=== PATIENT | male | born 1935 | race American Indian/Alaskan Native ===

== ENCOUNTER 2017-05-27 05:22 | Inpatient (IN) | payer MEDICARE ==
[2017-05-27] MEDS ORDERED: Sodium Chloride 0.9% 500 ML IV ONE ×2 (05:51→05:57)
[2017-05-27] MEDS ORDERED: Alum-Mag Hydrox-Simethicone Susp (30 mL) PO STA (05:52)
[2017-05-27] MEDS ORDERED: Alum-Mag Hydrox-Simethicone Susp (30 mL) ONE (05:58)
[2017-05-27 06:03] LABS: BASO # 0.1 K/uL (0.0-0.2); BASO % 1.4 % (0.0-2.0); EOS # 0.4 K/uL (0.0-0.7); EOS % 6.8 % (0.0-4.0); HEMATOCRIT 39.8 % (35.0-51.0); LYMPH # 1.7 K/uL (1.0-4.3); LYMPH % 27.9 % (20.0-40.0); MEAN CELL VOLUME 83.5 fL (80.0-94.0); MEAN CORPUSCULAR HEMOGLOBIN 27.5 pg (27.0-31.0); MEAN CORPUSCULAR HGB CONC 32.9 g/dL (33.0-37.0); MONO # 0.4 K/uL (0.0-0.8); NRBC % 0.1 % (0.0-2.0); RED CELL DISTRIBUTION WIDTH 15.2 % (11.5-14.5)
[2017-05-27 06:12] LABS: INR 1.1
[2017-05-27 06:18] LABS: BILIRUBIN,TOTAL 0.9 mg/dL (0.2-1.3); CALCIUM 9.5 mg/dl (8.6-10.4); POTASSIUM 6.1 mmol/L (3.6-5.2); TOTAL PROTEIN 7.7 g/dL (6.3-8.3)
[2017-05-27 06:30] LABS: TROPONIN I 0.113 ng/mL (0.00-0.120)
--- NOTE | 2017-05-27 06:42 | C.PDOC ---
History Of Present Illness <CecilyKaitlin - Last Filed: 05/27/17 07:32> <LamontrissashivaniJuliannTessa - Last Filed: 05/27/17 20:27> 81 yp male c/o "weakness" for 2 days. Pt notes that he cant walk or move his body, noting he doesnt feel strong enough. Sometimes feels dizzy. (+) bodyaches. Notes he has no specific pain anymore but does request medication for the "gas" in stomach. Denies abdominal pain, chest pain, sob. Notes normal BM. (+) weight loss . h/o quadruple by pass last year. No focal deficts. ( Tessa Ramirez) <CecilyKaitlin - Last Filed: 05/27/17 07:32> History Per: Patient History/Exam Limitations: no limitations Onset/Duration Of Symptoms: Days Current Symptoms Are (Timing): Still Present <Tessa Ramirez - Last Filed: 05/27/17 20:27> Time Seen by Provider: 05/27/17 05:41 Chief Complaint (Nursing): Weakness/Neurological Deficit Past Medical History - Medical History PMH: Arthritis, HTN Family History: States: Unknown Family Hx - Social History Hx Alcohol Use: No Hx Substance Use: No - Immunization History Hx Tetanus Toxoid Vaccination: No Hx Influenza Vaccination: No Hx Pneumococcal Vaccination: No <Juliann Ramirezov - Last Filed: 05/27/17 20:27> Vital Signs: Last Vital Signs Temp 98 F 05/27/17 19:08 Pulse 94 H 05/27/17 19:08 Resp 18 05/27/17 19:08 BP 169/91 H 05/27/17 19:08 Pulse Ox 100 05/27/17 19:08 Review Of Systems Except As Marked, All Systems Reviewed And Found Negative. <Tessa Ramirez - Last Filed: 05/27/17 20:27> Physical Exam - Physical Exam Appears: Well, Non-toxic, No Acute Distress, Chronically Ill Skin: Normal Color, Warm, Dry Head: Atraumatic, Normacephalic Eye(s): bilateral: Normal Inspection, EOMI Nose: Normal Oral Mucosa: Moist Neck: Normal, Normal ROM, Supple Chest: Symmetrical Cardiovascular: Rhythm Regular Respiratory: Normal Breath Sounds Gastrointestinal/Abdominal: Normal Exam, Soft, No Tenderness Back: Normal Inspection Extremity: Normal ROM, Other ((+) tophi on hands) Extremity: Bilateral: Atraumatic Neurological/Psych: Oriented x3, Normal Speech, Normal Cognition, Normal Cranial Nerves (2-12 grosly intact, no focal deficts) <Tessa Ramirez - Last Filed: 05/27/17 20:27> ED Course And Treatment - Laboratory Results Result Diagrams: 05/27/17 06:00 05/27/17 06:00 <Kaitlin Tony - Last Filed: 05/27/17 07:32> - Laboratory Results Result Diagrams: 05/27/17 06:00 05/27/17 18:56 ECG: Interpreted By Me (Dr hess), Viewed By Me ECG Rhythm: Sinus Rhythm Rate From EC O2 Sat by Pulse Oximetry: 97 Progress Note: Case discussed with Dr Peterson, who instructs insulin, calcium gluconate, and D50. Pt notes the PMD is Dr Daryl Thrasher. Case endorsed to Chris Tony pending re-evaluation, admission and completion of lab results. <Tessa Ramirez - Last Filed: 05/27/17 20:27> Disposition - Disposition Disposition Time: 07:33 <Kaitlin Tony - Last Filed: 05/27/17 07:32> <Tessa Ramirez - Last Filed: 05/27/17 20:27> - Disposition Disposition: HOSPITALIZED Condition: SERIOUS - Clinical Impression Clinical Impression: Generalized weakness, Acute renal failure, Hyperkalemia Decision To Admit - Pt Status Changed To: Hospital Disposition Of: Inpatient - Admit Certification Admit to Inpatient:: After my assessment, the patient will require hospitalization for at least two midnights. This is because of the severity of symptoms shown, intensity of services needed, and/or the medical risk in this patient being treated as an outpatient. - InPatient: Physician Admission Certification: I certify that this patient requires 2 or more midnights of care for the following reason:: ARF, hyperkalemia. Pt will need more than 2 days of admission. - . Bed Request Type: Telemetry <aKitlin Tony - Last Filed: 05/27/17 07:32> <Tessa Ramirez - Last Filed: 05/27/17 20:27> - . Patient Diagnosis: Generalized weakness, Acute renal failure, Hyperkalemia
[2017-05-27] MEDS ORDERED: Sod Polystyrene Sulf 15 gm/60 ml Oral Susp PO ONE (06:58)
[2017-05-27] MEDS ORDERED: Calcium Gluconate 4.65 MEQ in Dextrose 5% In Water 100 ML IV STA (07:04)
[2017-05-27] MEDS ORDERED: Sod Polystyrene Sulf 15 gm/60 ml Oral Susp ONE (07:04)
[2017-05-27] MEDS ORDERED: Dextrose 50% SYRINGE Inj (50 ml) IV STA (07:07)
[2017-05-27] MEDS ORDERED: (Novolin R) Insulin Human Regular 100 units/ml vial IV ONE (07:08)
[2017-05-27] MEDS ORDERED: (Novolin R) Insulin Human Regular 100 units/ml vial ONE (07:31)
[2017-05-27] MEDS ORDERED: Dextrose 50% SYRINGE Inj (50 ml) ONE (07:31)
[2017-05-27 07:47] LABS: THYROID STIMULATING HORMONE 9.5 mIU/L (0.46-4.68)
--- NOTE | 2017-05-27 07:52 | RAD ---
PROCEDURE: CHEST RADIOGRAPH, 1 VIEW HISTORY: SOB COMPARISON: None available. FINDINGS: LUNGS: Clear. PLEURA: No pneumothorax or pleural fluid seen. CARDIOVASCULAR: Normal. OSSEOUS STRUCTURES: No significant abnormalities. VISUALIZED UPPER ABDOMEN: Surgical clips is seen in the medial left upper quadrant abdomen. OTHER FINDINGS: Sternotomy wires again noted. IMPRESSION: No interval cardiopulmonary disease.
[2017-05-27] MEDS: Sodium Bicarbonate 8.4% 150 MEQ in Dextrose 5% In Water 1,000 ML IV SCH (08:03)
[2017-05-27 10:43] LABS: RBC URINE 32 /hpf (0-3); URINE BILIRUBIN NEGATIVE (NEGATIVE); URINE BLOOD 3+ (NEGATIVE); URINE COLOR Yellow (YELLOW); URINE GLUCOSE (UA) NORMAL (Normal); URINE KETONE NEGATIVE (NEGATIVE); URINE LEUKOCYTE ESTERASE NEG Leu/uL (Negative); URINE PROTEIN 2+ mg/dL (NEGATIVE); URINE UROBILINOGEN NORMAL mg/dL (0.2-1.0); WBC URINE 4 /hpf (0-5)
[2017-05-27 19:08] LABS: POTASSIUM 5.3 mmol/L (3.6-5.2)
[2017-05-27 19:11] LABS: ALB/GLOB RATIO 1.1 (1.0-2.1); BILIRUBIN,TOTAL 0.9 mg/dL (0.2-1.3); TOTAL PROTEIN 7.9 g/dL (6.3-8.3)
[2017-05-27 19:12] LABS: CALCIUM 9.3 mg/dl (8.6-10.4)
--- NOTE | 2017-05-27 19:53 | CP.PCM.CON ---
History of Present Illness - History of Present Illness History of Present Illness: pt is seen and examined, full consult is dictated #[id number] Past Patient History - Past Social History Smoking Status: Former Smoker - CARDIAC Hx Hypertension: Yes - MUSCULOSKELETAL/RHEUMATOLOGICAL Hx Arthritis: Yes - PSYCHIATRIC Hx Substance Use: No - SURGICAL HISTORY Hx Surgeries: Yes Other/Comment: "Quadruple bypass" - ANESTHESIA Hx Anesthesia: Yes Hx Anesthesia Reactions: No Hx Malignant Hyperthermia: No Meds Allergies/Adverse Reactions: Allergies Allergy/AdvReac Type Severity Reaction Status Date / Time No Known Allergies Allergy Verified 05/27/17 05:37 - Medications Medications: Current Medications Allopurinol (Zyloprim) 100 mg PO DAILY [facility] Amlodipine Besylate (Norvasc) 10 mg PO DAILY [facility] Last Admin: 05/27/17 14:34 Dose: 10 mg Aspirin (Ecotrin) 81 mg PO DAILY [facility] Last Admin: 05/27/17 14:34 Dose: 81 mg Calcitriol (Rocaltrol) 0.25 mcg PO MWF [facility] Clopidogrel Bisulfate (Plavix) 75 mg PO DAILY [facility] Colchicine (Colocrys) 0.6 mg PO BID [facility] Last Admin: 05/27/17 18:47 Dose: 0.6 mg Heparin Sodium (Porcine) (Heparin) 5,000 units SC BID [facility] Last Admin: 05/27/17 18:47 Dose: 5,000 units Sodium Bicarbonate 150 meq/ (Dextrose) 1,150 mls @ 70 mls/hr IV .[id number] [facility] Last Admin: 05/27/17 08:03 Dose: 70 mls/hr Rosuvastatin Calcium (Crestor) 5 mg PO [facility] Results - Vital Signs Recent Vital Signs: Last Vital Signs Temp 98 F 05/27/17 19:08 Pulse 94 H 05/27/17 19:08 Resp 18 05/27/17 19:08 BP 169/91 H 05/27/17 19:08 Pulse Ox 100 05/27/17 19:08 - Labs Result Diagrams: 05/27/17 06:00 05/27/17 18:56 Labs: Laboratory Results - last 24 hr 05/27/17 05/27/17 10:27 18:56 Sodium 146 Potassium 5.3 H Chloride 107 Carbon Dioxide 18 L Anion Gap 26 H BUN 75 H Creatinine 4.5 H Est GFR ( Amer) 15 Est GFR (Non-Af Amer) 13 Random Glucose 88 Calcium 9.3 Total Bilirubin 0.9 AST 247 H ALT 169 H Alkaline Phosphatase 142 H Total Protein 7.9 Albumin 4.2 Globulin 3.7 Albumin/Globulin Ratio 1.1 Urine Color Yellow Urine Clarity Clear Urine pH 5.0 Ur Specific [place] 1.012 Urine Protein 2+ H Urine Glucose (UA) Normal Urine Ketones Negative Urine Blood 3+ H Urine Nitrate Negative Urine Bilirubin Negative Urine Urobilinogen Normal Ur Leukocyte Esterase Neg Urine WBC (Auto) 4 Urine RBC (Auto) 32 H Ur Squamous Epith Cells < 1
[2017-05-28] MEDS ORDERED: Dextrose 5%/0.45% NS 1,000 ML IV SCH (01:45)
[2017-05-28] MEDS: Sodium Bicarbonate 8.4% 150 MEQ in Dextrose 5% In Water 1,000 ML IV SCH (02:08)
--- NOTE | 2017-05-28 02:19 | CON ---
FOLLOWUP RENAL CONSULTATION LOCATION: The patient is located in a emergency room bed 12. REQUESTING PHYSICIAN: Jeffery Thrasher MD REASON FOR CONSULTATION: Hyperkalemia, generalized weakness, renal failure, metabolic acidosis. HISTORY OF PRESENT ILLNESS: The patient is a 81-year-old elderly very pleasant male with a past medical history significant for hypertension, hyperkalemia, metabolic acidosis, chronic kidney disease, the baseline creatinine about 2.5 to 3 and coronary artery disease status post CABG about 1-1/2 year ago, was presented to the emergency room with chief complaint of severe weakness and also feeling dizzy and status post fall x1 when he try to get into the car about 2 days ago. Denies any loss of consciousness. The patient also complaints of difficult to ambulate and also pain in both upper and lower extremities. The patient also claims decrease p.o. intake. Denies any headache. Denies any chest pain or palpitations. No diarrhea. Denies any swelling of the legs. Denies any dysuria or frequency. PAST MEDICAL HISTORY: Significant for hypertension, severe tophaceous gout, chronic kidney disease, hyperkalemia, and metabolic acidosis. PAST SURGICAL HISTORY: Status post CABG about 1-1/2 year ago. ALLERGIES: NO KNOWN DRUG ALLERGIES. SOCIAL HISTORY: The patient is an active smoker, smokes 4 cigarettes, 2 in the morning and 2 in the evening. The patient is an ex-alcohol abuser, quit about 30 years ago. No drug abuse. PERSONAL HISTORY: He is 3 times and he lives with his . He has 2 children. FAMILY HISTORY: Both parents are . CURRENT MEDICATIONS: Include as follows; colchicine 0.6 mg p.o. b.i.d., Crestor 5 mg at bedtime, Ecotrin 81 mg daily, subcu heparin 5000 b.i.d., Norvasc 10 mg p.o. daily, Plavix 75 mg daily, Rocaltrol 0.25 mcg 3 times a week, sodium bicarbonate drip, D5W with 3 amps of bicarb at 70 mL per hour, allopurinol 100 mg p.o. daily, status post calcium glubionate 1 amp, D50 insulin, Kayexalate 30 g p.o. x1, total 2 doses and IV fluids 500 mL bolus x2. REVIEW OF SYSTEMS: Significant for generalized weakness, status post fall x1 without any injuries, pain in both upper and lower extremities, feeling thirsty, and decreased p.o. intake. PHYSICAL EXAMINATION VITAL SIGNS: Blood pressure 169/91, pulse 94, respirations 18, temperature 98 and saturation 100%. Height is 6 feet 3 inches and weight is 175 pounds. GENERAL: The patient is a 81-year-old elderly male, moderately built, moderately nourished, not in acute distress. HEENT: Pupils normal, reactive to light and accommodation. Conjunctivae pink. Sclerae anicteric. Tongue is moist. Trachea is midline. LUNGS: Symmetric on both sides. Bilateral breath sounds present. Clear to auscultation. Tongue is very dry. CARDIOVASCULAR SYSTEM: [place] at the fifth intercostal space, midclavicular line. S1 and S2 audible. No murmur or gallop. The patient has a mid sternal scar present from the previous CABG. ABDOMEN: Normal in appearance. Soft, tympanic. No guarding. No rigidity. No hepatosplenomegaly. CENTRAL NERVOUS SYSTEM: The patient is alert, awake, oriented x3. Sensory and motor system is grossly within normal limits. EXTREMITIES: No cyanosis. No clubbing. No edema. Dorsalis pedis pulses are feeble. 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 LABORATORY DATA: Include as follows as of 05/27/2017 at 6:00 a.m.: WBC 6, hemoglobin 13.1, hematocrit is 39.8 and platelets 147. PT 12.6, PTT 29. Sodium 141, potassium 6.1, chloride 108, CO2 of 14, BUN 73, creatinine 4.4, calcium 9.5, total bilirubin 0.9, AST 260, ALT 150, alkaline phosphatase is 143. CPK 9587 and CK-MB is 28.5. Troponin 0.11, total protein 7.7, albumin is 3.9, and globulin is 3.8. Lipase is 486 and TSH is 9.5. Urinalysis; yellow, clear, pH 5, specific gravity 1.012, protein 2+, glucose normal, ketones negative, blood 3+, nitrites negative, bilirubin negative, urobilinogen is normal, leukocyte esterase negative, wbc 4, rbc is 32, squamous epithelial less than 1. Repeat CMP at 1856 hours; sodium 146, potassium 5.3, chloride 107, CO2 of 18, BUN 75, creatinine 4.5, glucose 88, calcium 9.3, total bilirubin 0.9, AST 247, ALT 169, alkaline phosphatase 142, total protein 7.9, albumin 4.2. ASSESSMENT: In summary, the patient is a 81-year-old elderly male with a history of hypertension, coronary artery disease, status post coronary artery bypass graft, gout, chronic kidney disease with a baseline creatinine about 2.5 to 3, tophaceous gout, was admitted with generalized weakness, pain in both upper and lower extremities and status post fall x1 about 2 days ago with increased BUN and creatinine, increased potassium and low bicarbonate. 1. Renal failure, acute on chronic kidney disease. 2. Rhabdomyolysis secondary to recent fall. 3. Hyperkalemia secondary to renal failure. 4. Metabolic acidosis secondary to renal failure. 5. Hypertension. 6. Dehydration. PLAN: Continue IV fluids and D5W with sodium bicarbonate 3 amp at 70 mL per hour. Continue to monitor BMP and serum potassium is improving and bicarb is improving. Encourage p.o. fluid intake in the next 24 to 48 hours and repeat CBC, BMP and CPK level in the a.m. We will also check PTH intact level. We will follow with you. Thank you for allowing me to participate in your patient's care. Case discussed with physician assistant vice president from the ER this morning. Hernan Peterson MD
[2017-05-28 07:16] LABS: CALCIUM 8.9 mg/dl (8.6-10.4); POTASSIUM 4.9 mmol/L (3.6-5.2)
[2017-05-28] MEDS: (Novolin R) Insulin Human Regular 100 units/ml vial SC SCH ×4 (07:30→22:36)
[2017-05-28] MEDS: Sodium Chloride 0.45% 1,000 ML IV SCH ×2 (09:00→16:39)
--- NOTE | 2017-05-28 12:10 | CP.PCM.PN ---
Subjective - Date & Time of Evaluation Date of Evaluation: 05/28/17 Time of Evaluation: 12:10 - Subjective Subjective: pt i adenike nd examined, follow up consult is dictated #[id number] d/c iv [id number] start [id number] 650 mg po q 6 hrs ivf 1/2 ns at 125 ml/hr x 48 hrs bmp daily Objective - Vital Signs/Intake and Output Vital Signs (last 24 hours): Temp Pulse Resp BP Pulse Ox 97.4 F L 87 19 165/87 H 97 05/28/17 08:40 05/28/17 08:40 05/28/17 08:40 05/28/17 08:40 05/28/17 08:40 - Medications Medications: Current Medications Amlodipine Besylate (Norvasc) 10 mg PO DAILY [facility] Last Admin: 05/28/17 09:57 Dose: 10 mg Aspirin (Ecotrin) 81 mg PO DAILY [facility] Last Admin: 05/28/17 09:57 Dose: 81 mg Calcitriol (Rocaltrol) 0.25 mcg PO MWF [facility] Clopidogrel Bisulfate (Plavix) 75 mg PO DAILY [facility] Last Admin: 05/28/17 09:57 Dose: 75 mg Colchicine (Colocrys) 0.6 mg PO QOD [facility] Heparin Sodium (Porcine) (Heparin) 5,000 units SC BID [facility] Last Admin: 05/28/17 09:57 Dose: 5,000 units Hydralazine HCl (Apresoline) 100 mg PO TID [facility] Dextrose/Sodium Chloride (Dextrose 5%/0.45% Ns 1000 Ml) 1,000 mls @ 50 mls/hr IV .Q20H [facility] Sodium Chloride (Sodium Chloride 0.45%) 1,000 mls @ 125 mls/hr IV .Q8H [facility] Stop: 05/30/17 08:46 Last Admin: 05/28/17 09:00 Dose: 125 mls/hr Influenza Virus Vaccine (Afluria) 45 mcg IM .ONCE ONE Stop: 05/30/17 14:01 Insulin Human Regular (Novolin R) 0 unit SC ACHS [facility] PRN Reason: Protocol Last Admin: 05/28/17 07:30 Dose: Not Given Pneumococcal Polyvalent Vaccine (Pneumovax 23 Vaccine) 0.5 ml IM .ONCE ONE Stop: 05/30/17 14:01 Rosuvastatin Calcium (Crestor) 5 mg PO [facility] Last Admin: 05/27/17 23:57 Dose: 5 mg Sodium Bicarbonate (Sodium Bicarbonate Tab) 650 mg PO Q6 DAWIT - Labs Labs: 05/28/17 06:23 PT 12.6 SECONDS (9.7-12.2) H 05/27/17 06:00 INR 1.1 05/27/17 06:00 APTT 29 SECONDS (21-34) 05/27/17 06:00
--- NOTE | 2017-05-28 14:02 | HP ---
HISTORY OF PRESENT ILLNESS: This is a 81-year-old gentleman with a history of hypertension, chronic kidney disease, gout, coronary artery disease, previous CABG, who was brought with generalized weakness. His potassium was found to be elevated towards 6. His creatinine was 4.4. The patient was subsequently admitted. Dr. Peterson of the nephrology was consulted. MEDICATIONS AT HOME: Include aspirin 81 mg, hydralazine 100 mg three times a day, clonidine 0.1 three times a day, Coreg 12.5 twice a day, Plavix 75 mg one a day, and Renvela 800 mg two tablets twice a day. PAST MEDICAL HISTORY: History of CABG more than 10 years for multivessel coronary artery disease. He was admitted in October 2016 to [facility] with a renal failure. His potassium was 7.1 and his creatinine was around 3. The patient is also on Zocor, which was switched to Crestor 5 mg. FAMILY HISTORY: Negative for diabetes or hypertension. PERSONAL HISTORY: Smokes more than half pack per day for more than 40 years. No ETOH abuse. He is and lives with his . No exercise. REVIEW OF SYSTEMS: GENERAL: No fever and no chills. Generalized weakness is noted; extreme weakness, could not get out from bed to chair. HEENT: No headaches noted. No visual disturbances. Ears; he has a hearing loss. NECK: No swollen glands. No enraged thyroid. RESPIRATORY: Negative for cough or hemoptysis. CARDIAC: Denies any chest pain. He does have occasional shortness of breath, but no edema. History of hypertension. No palpitation. No PND. GASTROINTESTINAL; Poor appetite. Constipation. GENITOURINARY: Positive for frequency and hesitancy. MUSCULOSKELETAL: History of multiple joint pains, gout, back pains, under the care of Dr. Aggarwal, the drip box tender. PERIPHERAL VASCULAR SYSTEM: Severe peripheral arterial disease, 1 to 2 blocks of claudication, but recently he has not been walking. NEUROLOGIC: Negative for trembling, numbness or seizures. PSYCHIATRIC: No evidence of depression. ALLERGIES; Denies. PHYSICAL EXAMINATION GENERAL: Shows an elderly gentleman, appears chronically sick, but in no acute distress. He is 6 feet 1 inch, and his weight is 175. His weight was 200 about six months ago. HEENT: Head is normocephalic. Eyes no pallor and no icterus. NECK: Supple. No thyroid enlargement. LUNGS: Clear to auscultation bilaterally. HEART: PMI is normal. S1 and S2 is normal. Soft S4 gallop. Grade I to II/ systolic murmur in mitral area. Distal pulses are feeble. No edema. ABDOMEN: Soft and nontender. EXTREMITIES: Gouty tophi noted in the right elbow and arthritis changes in both the hands. NEUROLOGIC: The patient is awake, alert, and oriented x3. VITAL SIGNS: His blood pressure is 165/87, his heart rate is 86 and regular, respiratory rate of 20, temperature is 97.4, and O2 saturation is 97% on room air. LABORATORY DATA: Shows his creatinine is 4.4 and TSH is mildly elevated to 9.7. ALT is 247, AST is 169, and alkaline phosphatase is 142. His creatinine is 4.4, potassium was 6.4, which was rare, today's one is 4.9. DIAGNOSTIC DATA: EKG; sinus rhythm, diffuse ST-T changes, and LVH. ASSESSMENT: This is a 81-year-old gentleman with history of hypertension, diffuse atherosclerosis, has presented due to worsening of the renal failure. Hyperkalemia, which is being corrected. PLAN: At this point is to medicate him, culture him, nephrology followup, and may need a shunt. We will add a small dose of Synthroid. Jeffery Thrasher MD
--- NOTE | 2017-05-29 00:35 | CARD ---
APPROVED REPORT EKG Measurement Heart [id number] <Conclusion> Normal sinus rhythm Possible Left atrial enlargement ST & T wave abnormality, consider lateral ischemia Prolonged QT Abnormal ECG
--- NOTE | 2017-05-29 01:04 | PN ---
FOLLOWUP RENAL CONSULTATION LOCATION: The patient is located in room #557, bed A. REQUESTED BY: Dr. Jeffery Thrasher. REASON FOR FOLLOWUP: Acute renal failure, chronic kidney disease, metabolic acidosis and hyperkalemia. Mr. Cuninngham is about 81 years old, elderly, -[place] male with a past medical history significant for hypertension; tophaceous gout; chronic kidney disease; hyperkalemia; metabolic acidosis and coronary artery disease, status post CABG; was admitted with a chief complaint of severe weakness in both lower extremities and feeling weak, tired and status post fall x1 two days prior to the admission. Denies any chest pain, palpitations. Denies any fever or cough. The patient is feeling slightly better today. PHYSICAL EXAMINATION: VITAL SIGNS: This morning as follows; blood pressure 165/87, pulse 87, respirations 19, temperature 97.4, saturation 97%. Height 6 feet 3 inches and weight is 175 pounds. GENERAL: Mr. Cunningham is 81 years old elderly, -[place] male, moderately built, moderately nourished, and not in acute distress. HEENT: Pupils are normal and reactive to light and accommodation. Conjunctivae pink. Sclerae anicteric. Tongue is moist. Trachea is midline. LUNGS: Symmetric on both sides and bilateral breath sounds present. Clear to auscultation. CARDIOVASCULAR SYSTEM: [place] at the fifth intercostal space, midclavicular line, S1 and S2 audible. No murmur or no gallop. The patient has a midsternal scar present. ABDOMEN: Normal in appearance, soft, tympanic. No guarding, no rigidity. No hepatosplenomegaly. CENTRAL NERVOUS SYSTEM: The patient is alert, awake, and oriented x3. Nonfocal neuro examination. Cranial nerves II through XII grossly intact. Sensory and motor system is within normal limits. EXTREMITIES: No cyanosis. No clubbing. No edema. The patient has tophaceous gout, multiple tophi in both upper extremities. CURRENT MEDICATIONS: Include as follows; influenza vaccine 45 mcg IM x1 dose, hydralazine 100 mcg p.o. t.i.d., colchicine 0.6 mg p.o. q.o.d., Crestor 5 mg p.o. at bedtime, Ecotrin 81 mg p.o. daily, subQ heparin 5000 b.i.d., Norvasc 10 mg daily, Novolin R for sliding scale, Plavix 75 mg p.o. daily and pneumococcal vaccine 0.5 mL IM x1 and Rocaltrol 0.25 mcg p.o. -- and sodium bicarbonate 650 mg p.o. q. 6 hours and Synthroid 25 mcg p.o. daily and IV fluids half-normal saline at 125 mL/h and the sodium bicarbonate IV is discontinued this morning. LABORATORY DATA: Include as follows as of 05/28/2017: Sodium 138, potassium 4.9, chloride 103, CO2 of 18, BUN 77, creatinine 4.4, and GFR is about 16, glucose 87, calcium 8.9, CPK 4129. Hepatitis B surface antigen negative, core antibody is negative. Hep C antibody is negative. Hepatitis C IgM antibody is negative. ASSESSMENT: In summary, Mr. Cunningham is a 81 years old elderly -[place] male with a history of hypertension; coronary artery disease, status post CABG; tophaceous gout; chronic kidney disease; hyperkalemia; metabolic acidosis. 1. Renal failure, [id number] kidney disease versus progression of the chronic kidney disease. 2. Hyperkalemia secondary to renal failure and metabolic acidosis. 3. Metabolic acidosis secondary to renal failure. 4. Rhabdomyolysis. 5. Dehydration. PLAN: Continue IV fluids half-normal saline at 125 mL/h and repeat BMP and CPK level in a.m. and IV bicarbonate is discontinued this morning and started on p.o. sodium bicarbonate 650 mg p.o. q. 6 hours. We will check PTH intact level. We will follow with you. Thank you for allowing me to participate in your patient's care. Hernan Peterson MD
[2017-05-29] MEDS: Sodium Chloride 0.45% 1,000 ML IV SCH ×5 (01:15→21:00)
[2017-05-29] MEDS: Levothyroxine 25 MCG TAB PO SCH (06:38)
[2017-05-29] MEDS: (Novolin R) Insulin Human Regular 100 units/ml vial SC SCH ×4 (06:47→22:06)
--- NOTE | 2017-05-29 09:42 | US ---
HISTORY: abnormal lft,renal failure COMPARISON: None. TECHNIQUE: Sonographic evaluation of the abdomen. FINDINGS: LIVER: Measures 18.8 cm. Diffusely increased echogenicity of the liver parenchyma. Enlarged. Consistent with fatty infiltration. No mass. No biliary ductal dilatation. Smooth contour. GALLBLADDER: Markedly thickened wall, nonspecific. No pericholecystic fluid. No cholelithiasis. COMMON BILE DUCT: Measures 6 mm. No stones. No dilatation. PANCREAS: Limited visualization. No abnormality. RIGHT KIDNEY: Measures 9.4cm. Normal echogenicity. No calculus, mass, or hydronephrosis. LEFT KIDNEY: Measures 8.8cm. Normal echogenicity. No calculus, mass, or hydronephrosis. SPLEEN: Normal in size and contour. No mass. AORTA: No aneurysmal dilatation. IVC: Unremarkable. OTHER FINDINGS: None. IMPRESSION: Fatty infiltration of the liver. Mild hepatomegaly. Gallbladder wall edema, nonspecific. No cholelithiasis. Otherwise unremarkable.
--- NOTE | 2017-05-29 10:52 | CP.PCM.PN ---
Subjective - Date & Time of Evaluation Date of Evaluation: 05/29/17 Time of Evaluation: 10:51 - Subjective Subjective: pt is seen and examined, follow up consult is dictated #[id number] Objective - Vital Signs/Intake and Output Vital Signs (last 24 hours): Temp Pulse Resp BP Pulse Ox 97.6 F 102 H 20 145/69 97 05/29/17 07:25 05/29/17 07:25 05/29/17 07:25 05/29/17 07:25 05/29/17 07:25 Intake and Output: 05/29/17 05/29/17 06:59 18:59 Output Total 400 Balance -400 - Medications Medications: Current Medications Amlodipine Besylate (Norvasc) 10 mg PO DAILY [facility] Last Admin: 05/29/17 10:36 Dose: 10 mg Aspirin (Ecotrin) 81 mg PO DAILY [facility] Last Admin: 05/29/17 10:35 Dose: 81 mg Calcitriol (Rocaltrol) 0.25 mcg PO MWF [facility] Last Admin: 05/29/17 10:34 Dose: 0.25 mcg Clopidogrel Bisulfate (Plavix) 75 mg PO DAILY [facility] Last Admin: 05/29/17 10:35 Dose: 75 mg Colchicine (Colocrys) 0.6 mg PO QOD [facility] Last Admin: 05/29/17 10:34 Dose: 0.6 mg Heparin Sodium (Porcine) (Heparin) 5,000 units SC BID [facility] Last Admin: 05/29/17 10:35 Dose: 5,000 units Hydralazine HCl (Apresoline) 100 mg PO TID [facility] Last Admin: 05/29/17 10:36 Dose: 100 mg Sodium Chloride (Sodium Chloride 0.45%) 1,000 mls @ 125 mls/hr IV .Q8H [facility] Stop: 05/30/17 08:46 Last Admin: 05/29/17 09:02 Dose: Not Given Influenza Virus Vaccine (Afluria) 45 mcg IM .ONCE ONE Stop: 05/30/17 14:01 Insulin Human Regular (Novolin R) 0 unit SC [facility] PRN Reason: Protocol Last Admin: 05/29/17 06:47 Dose: Not Given Levothyroxine Sodium (Synthroid) 25 mcg PO DAILY@0630 [facility] Last Admin: 05/29/17 06:38 Dose: 25 mcg Pneumococcal Polyvalent Vaccine (Pneumovax 23 Vaccine) 0.5 ml IM .ONCE ONE Stop: 05/30/17 14:01 Rosuvastatin Calcium (Crestor) 5 mg PO HS [facility] Last Admin: 05/28/17 22:36 Dose: 5 mg Sodium Bicarbonate (Sodium Bicarbonate Tab) 650 mg PO Q6 [facility] Last Admin: 05/29/17 06:39 Dose: 650 mg - Labs Labs: 05/28/17 06:23 PT 12.6 SECONDS (9.7-12.2) H 05/27/17 06:00 INR 1.1 05/27/17 06:00 APTT 29 SECONDS (21-34) 05/27/17 06:00
[2017-05-29 11:36] LABS: HEMATOCRIT 34.2 % (35.0-51.0); MEAN CELL VOLUME 81.9 fL (80.0-94.0); MEAN CORPUSCULAR HEMOGLOBIN 27.6 pg (27.0-31.0); MEAN CORPUSCULAR HGB CONC 33.7 g/dL (33.0-37.0); MEAN PLATELET VOLUME 8.7 fL (7.2-11.7); RED CELL DISTRIBUTION WIDTH 14.3 % (11.5-14.5); WHITE BLOOD COUNT 4.6 K/uL (4.8-10.8)
[2017-05-29 11:49] LABS: CALCIUM 8.4 mg/dl (8.6-10.4); POTASSIUM 4.7 mmol/L (3.6-5.2)
--- NOTE | 2017-05-29 12:43 | CP.PCM.PN ---
Subjective - Date & Time of Evaluation Date of Evaluation: 05/29/17 Time of Evaluation: 12:42 - Subjective Subjective: weak.labs noted,no better.may need dyalisis Objective - Vital Signs/Intake and Output Vital Signs (last 24 hours): Temp Pulse Resp BP Pulse Ox 97.6 F 102 H 20 145/69 97 05/29/17 07:25 05/29/17 07:25 05/29/17 07:25 05/29/17 07:25 05/29/17 07:25 Intake and Output: 05/29/17 05/29/17 06:59 18:59 Output Total 400 Balance -400 - Medications Medications: Current Medications Amlodipine Besylate (Norvasc) 10 mg PO DAILY [facility] Last Admin: 05/29/17 10:36 Dose: 10 mg Aspirin (Ecotrin) 81 mg PO DAILY [facility] Last Admin: 05/29/17 10:35 Dose: 81 mg Calcitriol (Rocaltrol) 0.25 mcg PO MWF [facility] Last Admin: 05/29/17 10:34 Dose: 0.25 mcg Clopidogrel Bisulfate (Plavix) 75 mg PO DAILY [facility] Last Admin: 05/29/17 10:35 Dose: 75 mg Colchicine (Colocrys) 0.6 mg PO QOD [facility] Last Admin: 05/29/17 10:34 Dose: 0.6 mg Heparin Sodium (Porcine) (Heparin) 5,000 units SC BID [facility] Last Admin: 05/29/17 10:35 Dose: 5,000 units Hydralazine HCl (Apresoline) 100 mg PO TID [facility] Last Admin: 05/29/17 10:36 Dose: 100 mg Sodium Chloride (Sodium Chloride 0.45%) 1,000 mls @ 125 mls/hr IV .Q8H [facility] Stop: 05/30/17 08:46 Last Admin: 05/29/17 09:02 Dose: Not Given Influenza Virus Vaccine (Afluria) 45 mcg IM .ONCE ONE Stop: 05/30/17 14:01 Insulin Human Regular (Novolin R) 0 unit SC [facility] PRN Reason: Protocol Last Admin: 05/29/17 11:30 Dose: Not Given Levothyroxine Sodium (Synthroid) 25 mcg PO DAILY@0630 [facility] Last Admin: 05/29/17 06:38 Dose: 25 mcg Pneumococcal Polyvalent Vaccine (Pneumovax 23 Vaccine) 0.5 ml IM .ONCE ONE Stop: 05/30/17 14:01 Rosuvastatin Calcium (Crestor) 5 mg PO HS [facility] Last Admin: 05/28/17 22:36 Dose: 5 mg Sodium Bicarbonate (Sodium Bicarbonate Tab) 650 mg PO Q6 [facility] Last Admin: 05/29/17 06:39 Dose: 650 mg - Labs Labs: 05/29/17 11:31 05/29/17 11:31 PT 12.6 SECONDS (9.7-12.2) H 05/27/17 06:00 INR 1.1 05/27/17 06:00 APTT 29 SECONDS (21-34) 05/27/17 06:00 - Constitutional Appears: Chronically Ill - Head Exam Head Exam: NORMOCEPHALIC - Eye Exam Eye Exam: Normal appearance - Neck Exam Neck Exam: Normal Inspection - Respiratory Exam Respiratory Exam: Decreased Breath Sounds - Cardiovascular Exam Cardiovascular Exam: REGULAR RHYTHM - GI/Abdominal Exam GI & Abdominal Exam: Soft - Extremities Exam Extremities Exam: absent: Pedal Edema - Neurological Exam Neurological Exam: Alert, Oriented x3 Assessment and Plan - Assessment and Plan (Free Text) Assessment: htn,ckd,cad. labs still no better.may need hd.
[2017-05-30] MEDS: Sodium Chloride 0.45% 1,000 ML IV SCH ×2 (02:20→14:06)
--- NOTE | 2017-05-30 04:47 | CON ---
DATE: FOLLOWUP RENAL CONSULTATION LOCATION: The patient is located in room 557, bed 8. REQUESTED BY: Jeffery Thrasher MD REASON FOR FOLLOWUP: Acute renal failure, chronic kidney disease, hyperkalemia, metabolic acidosis. HISTORY OF PRESENT ILLNESS: Mr. Cunningham is 81 years old elderly male with a history of hypertension, coronary artery disease status post CABG, gout, chronic kidney disease, hyperkalemia, metabolic acidosis who was admitted with generalized weakness status post fall with elevated CPK levels and increased BUN and creatinine. The patient is feeling better, not in acute distress. Denies any headache or dizziness. Denies any chest pain or palpitations. Denies any fever or cough. No abdominal pain. No nausea, vomiting, or diarrhea. PHYSICAL EXAMINATION: VITAL SIGNS: This morning as follows; blood pressure 145/69, pulse 102, respirations 20, temperature 97.6, saturation 97%. Height 6 feet 3 inches and weight is 175 pounds, BMI 21.9. GENERAL: Mr. Cunningham is 81 years old elderly -[place] male, moderately build, moderately nourished, not in distress. HEENT: Pupils normal and reactive to light and accommodation. Conjunctiva pink. Sclerae anicteric. Tongue is moist. Trachea is midline. LUNGS: Symmetric on both sides. Bilateral breath sounds present. Clear on auscultation. CARDIOVASCULAR: [place] at the fifth intercostal space, midclavicular line. S1 and S2 audible. No murmur or gallop. ABDOMEN: Normal in appearance. Soft and tympanic. No guarding. No rigidity. No hepatosplenomegaly. CENTRAL NERVOUS SYSTEM: The patient is alert, awake, and oriented x3. Nonfocal. NEUROLOGIC: Cranial nerves II through XII grossly intact. Sensory and motor system is within normal limits. EXTREMITIES: No cyanosis. No clubbing. No edema. 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 CURRENT MEDICATIONS: Includes as follows: 1. Influenza vaccine. 2. Hydralazine 25 mg p.o. q. 8 hours. 3. Colchicine 0.6 mg p.o. q.o.d. 4. Crestor 5 mg p.o. bedtime. 5. Aspirin 81 mg daily. 6. Subcutaneous heparin 5000 b.i.d. 7. Norvasc 10 mg daily. 8. Plavix 75 mg daily. 9. Pneumovax. 10. Rocaltrol 0.25 mcg 3 times a week. 11. Sodium bicarbonate 650 p.o. q. 6 hours. 12. IV fluids at 125 mL per hour. 13. Levothyroxine 25 mcg daily. LABORATORY DATA: Include as follows: As of 05/29/2017; WBC 4.6, hemoglobin 11.5, hematocrit is 34.2, platelets 120. Sodium 134, potassium 4.7, chloride 100, CO2 of 20, BUN 81, creatinine 4.2, and GFR is 17 and calcium 8.4, glucose 85 and CPK 3805. Other reports; ultrasound of the abdomen as of 05/29/2017. IMPRESSION: Fatty infiltration of the liver, mild hepatomegaly, gallbladder wall edema, nonspecific cholelithiasis; otherwise unremarkable. Right kidney measures 9.4 cm, normal echogenicity, no calculus mass, no hydronephrosis. Left kidney measures 8.8 cm, normal echogenicity, no calculus, mass, or hydronephrosis. No aneurysmal dilatation. In summary; Mr. Cunningham is 81 years old elderly -[place] male with hypertension, coronary artery disease, status post coronary artery bypass graft, gout, chronic kidney disease, hyperkalemia, metabolic acidosis, status post fall and weakness with elevated CPK levels. 1. Renal failure, acute on chronic kidney disease versus progression of the chronic kidney disease, cannot rule out hypertensive nephrosclerosis versus chronic interstitial nephritis secondary to medications such as colchicine, non-steroids. 2. Rhabdomyolysis. 3. Metabolic acidosis. 4. Hypertension. 5. Tophaceous gout. PLAN: Continue IV fluids, half normal saline at 125 mL per hour and continue sodium bicarb. We will change IV fluids to normal saline at 100 mL per hour. We will follow with you. Thank you for allowing me to participate in your patient's care. Repeat CBC, BMP, and CPK level in a.m. and case discussed with Dr. Jeffery Thrasher in rounds this morning. Hernan Peterson MD
[2017-05-30] MEDS: Levothyroxine 25 MCG TAB PO SCH (05:40)
[2017-05-30] MEDS: (Novolin R) Insulin Human Regular 100 units/ml vial SC SCH ×4 (07:30→21:31)
[2017-05-30 08:19] LABS: BASO # 0.1 K/uL (0.0-0.2); BASO % 1.3 % (0.0-2.0); EOS # 0.2 K/uL (0.0-0.7); EOS % 4.2 % (0.0-4.0); LYMPH # 0.9 K/uL (1.0-4.3); LYMPH % 21.3 % (20.0-40.0); MEAN CELL VOLUME 82.9 fL (80.0-94.0); MEAN CORPUSCULAR HEMOGLOBIN 27.3 pg (27.0-31.0); MEAN CORPUSCULAR HGB CONC 32.9 g/dL (33.0-37.0); MEAN PLATELET VOLUME 9.4 fL (7.2-11.7); MONO # 0.3 K/uL (0.0-0.8); MONO % 7.7 % (0.0-10.0); NRBC % 0.1 % (0.0-2.0); RED CELL DISTRIBUTION WIDTH 14.4 % (11.5-14.5); WHITE BLOOD COUNT 4.4 K/uL (4.8-10.8)
[2017-05-30 08:35] LABS: CALCIUM 8.5 mg/dl (8.6-10.4); POTASSIUM 4.5 mmol/L (3.6-5.2)
--- NOTE | 2017-05-30 09:30 | CP.PCM.PN ---
Subjective - Date & Time of Evaluation Date of Evaluation: 05/30/17 Time of Evaluation: 09:29 - Subjective Subjective: pt is seen and examined, follow up consult is dictated #[id number] renal function is improving, base line s.cr is 2.5-3 few months ago Objective - Vital Signs/Intake and Output Vital Signs (last 24 hours): Temp Pulse Resp BP Pulse Ox 97.6 F 97 H 20 155/76 H 98 05/30/17 08:00 05/30/17 08:00 05/30/17 08:00 05/30/17 08:00 05/30/17 08:00 Intake and Output: 05/30/17 05/30/17 06:59 18:59 Intake Total 1240 Output Total 1250 Balance -10 - Medications Medications: Current Medications Amlodipine Besylate (Norvasc) 10 mg PO DAILY [facility] Last Admin: 05/29/17 10:36 Dose: 10 mg Aspirin (Ecotrin) 81 mg PO DAILY [facility] Last Admin: 05/29/17 10:35 Dose: 81 mg Calcitriol (Rocaltrol) 0.25 mcg PO MWF [facility] Last Admin: 05/29/17 10:34 Dose: 0.25 mcg Clopidogrel Bisulfate (Plavix) 75 mg PO DAILY [facility] Last Admin: 05/29/17 10:35 Dose: 75 mg Colchicine (Colocrys) 0.6 mg PO QOD [facility] Last Admin: 05/29/17 10:34 Dose: 0.6 mg Heparin Sodium (Porcine) (Heparin) 5,000 units SC BID [facility] Last Admin: 05/29/17 17:20 Dose: 5,000 units Hydralazine HCl (Apresoline) 25 mg PO Q8H [facility] Last Admin: 05/30/17 05:40 Dose: 25 mg Influenza Virus Vaccine (Afluria) 45 mcg IM .ONCE ONE Stop: 05/30/17 14:01 Insulin Human Regular (Novolin R) 0 unit SC [facility] PRN Reason: Protocol Last Admin: 05/29/17 22:06 Dose: Not Given Levothyroxine Sodium (Synthroid) 25 mcg PO DAILY@0630 [facility] Last Admin: 05/30/17 05:40 Dose: 25 mcg Pneumococcal Polyvalent Vaccine (Pneumovax 23 Vaccine) 0.5 ml IM .ONCE ONE Stop: 05/30/17 14:01 Rosuvastatin Calcium (Crestor) 5 mg PO HS [facility] Last Admin: 05/29/17 22:04 Dose: 5 mg Sodium Bicarbonate (Sodium Bicarbonate Tab) 650 mg PO Q6 [facility] Last Admin: 05/30/17 05:40 Dose: 650 mg - Labs Labs: 05/30/17 08:11 05/30/17 08:11 PT 12.6 SECONDS (9.7-12.2) H 05/27/17 06:00 INR 1.1 05/27/17 06:00 APTT 29 SECONDS (21-34) 05/27/17 06:00
[2017-05-30] MEDS: Sodium Chloride 0.9% 1,000 ML IV SCH ×2 (10:48→17:41)
--- NOTE | 2017-05-30 12:58 | CP.PCM.PN ---
Subjective - Date & Time of Evaluation Date of Evaluation: 05/30/17 Time of Evaluation: 12:56 - Subjective Subjective: still weak, Objective - Vital Signs/Intake and Output Vital Signs (last 24 hours): Temp Pulse Resp BP Pulse Ox 97.6 F 97 H 20 155/76 H 98 05/30/17 08:00 05/30/17 08:00 05/30/17 08:00 05/30/17 08:00 05/30/17 08:00 Intake and Output: 05/30/17 05/30/17 06:59 18:59 Intake Total 1240 Output Total 1250 Balance -10 - Medications Medications: Current Medications Amlodipine Besylate (Norvasc) 10 mg PO DAILY [facility] Last Admin: 05/30/17 10:32 Dose: 10 mg Aspirin (Ecotrin) 81 mg PO DAILY [facility] Last Admin: 05/30/17 10:32 Dose: 81 mg Calcitriol (Rocaltrol) 0.25 mcg PO MWF [facility] Last Admin: 05/29/17 10:34 Dose: 0.25 mcg Clopidogrel Bisulfate (Plavix) 75 mg PO DAILY [facility] Last Admin: 05/30/17 10:32 Dose: 75 mg Colchicine (Colocrys) 0.6 mg PO QOD [facility] Last Admin: 05/29/17 10:34 Dose: 0.6 mg Heparin Sodium (Porcine) (Heparin) 5,000 units SC BID [facility] Last Admin: 05/30/17 10:32 Dose: 5,000 units Hydralazine HCl (Apresoline) 25 mg PO Q8H [facility] Last Admin: 05/30/17 05:40 Dose: 25 mg Sodium Chloride (Sodium Chloride 0.9%) 1,000 mls @ 125 mls/hr IV .Q8H [facility] Stop: 06/01/17 09:31 Last Admin: 05/30/17 10:48 Dose: 125 mls/hr Influenza Virus Vaccine (Afluria) 45 mcg IM .ONCE ONE Stop: 05/30/17 14:01 Insulin Human Regular (Novolin R) 0 unit SC [facility] PRN Reason: Protocol Last Admin: 05/30/17 07:30 Dose: Not Given Levothyroxine Sodium (Synthroid) 25 mcg PO DAILY@0630 [facility] Last Admin: 05/30/17 05:40 Dose: 25 mcg Pneumococcal Polyvalent Vaccine (Pneumovax 23 Vaccine) 0.5 ml IM .ONCE ONE Stop: 05/30/17 14:01 Rosuvastatin Calcium (Crestor) 5 mg PO HS [facility] Last Admin: 05/29/17 22:04 Dose: 5 mg Sodium Bicarbonate (Sodium Bicarbonate Tab) 650 mg PO Q6 [facility] Last Admin: 05/30/17 05:40 Dose: 650 mg - Labs Labs: 05/30/17 08:11 05/30/17 08:11 PT 12.6 SECONDS (9.7-12.2) H 05/27/17 06:00 INR 1.1 05/27/17 06:00 APTT 29 SECONDS (21-34) 05/27/17 06:00 - Constitutional Appears: Chronically Ill - Head Exam Head Exam: NORMOCEPHALIC - Neck Exam Neck Exam: Normal Inspection - Respiratory Exam Respiratory Exam: Clear to Ausculation Bilateral - Cardiovascular Exam Cardiovascular Exam: REGULAR RHYTHM, Murmur - GI/Abdominal Exam GI & Abdominal Exam: Soft - Extremities Exam Extremities Exam: absent: Pedal Edema - Neurological Exam Neurological Exam: Alert, Oriented x3 Assessment and Plan - Assessment and Plan (Free Text) Assessment: cr is down to 3.7. ct hydration.
[2017-05-30] MEDS ORDERED: Pneumococcal 23-Valent Vaccine IM ONE (14:00)
[2017-05-30] MEDS ORDERED: Influenza Virus Vaccine 45 mcg/0.5 ml Syr IM ONE (14:00)
[2017-05-31] MEDS: Sodium Chloride 0.9% 1,000 ML IV SCH ×4 (01:30→21:32)
--- NOTE | 2017-05-31 02:41 | CON ---
DATE: 05/30/2017 FOLLOWUP RENAL CONSULTATION The patient is located in room 557, bed 8. REQUESTED BY: Dr. Jeffery Thrasher. REASON FOR FOLLOWUP: Acute renal failure and chronic kidney disease, for further evaluation. HISTORY OF PRESENT ILLNESS: Mr. Cunningham is a 81 years old elderly -[place]er male with a past medical history significant for hypertension, coronary artery disease, status post CABG, gout, chronic kidney disease, hyperkalemia, metabolic acidosis who was admitting with feeling weakness and unable to ambulate and is status post fall when he tried to get into car and patient was admitted with hyperkalemia, metabolic acidosis, and increased BUN, creatinine and dehydration. The patient is being hydrated and the patient is feeling better. Denies any chest pain or palpitations. Denies any fever or cough. No abdominal pain. No nausea, vomiting, or diarrhea. PHYSICAL EXAMINATION: VITAL SIGNS: As follows; blood pressure this morning 155/76, pulse 97, respirations 20, temperature 97.6, saturation 98%. Height 6 feet 3 inches and weight is 178 pounds. GENERAL: Mr. Cunningham is 81 years old elderly -[place] male, moderately build, moderately nourished, not in acute distress. HEENT: Pupils normal and reactive to light and accommodation. Conjunctiva pink. Sclerae anicteric. Tongue is moist. Trachea is midline. LUNGS: Symmetric on both sides. Bilateral breath sounds present. Clear on auscultation. CARDIOVASCULAR: [place] at the fifth intercostal space, midclavicular line. S1 and S2 audible. No murmur and no gallop. The patient has midsternal scar present on the previous CABG. ABDOMEN: Normal in appearance, soft, tympanic. No guarding, no rigidity. No hepatosplenomegaly. CENTRAL NERVOUS SYSTEM: The patient is alert, awake, and oriented x3. Nonfocal neuro examination. Cranial nerves II through XII grossly intact. Sensory and motor system is within normal limits. EXTREMITIES: No cyanosis. No clubbing. No edema. 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 CURRENT MEDICATIONS: Include as follows; hydralazine 25 mg p.o. q. 8 hours, colchicine 0.6 mg p.o. q.o.d., Crestor 5 mg p.o. at bedtime, Ecotrin 81 mg p.o. daily, subq heparin 5000 units subq b.i.d., enalapril 10 mg p.o. daily, Plavix 75 mg p.o. daily, Rocaltrol 0.25 mcg 3 times a week, sodium bicarb 650 mg p.o. q. 6 hours, IV fluids changed from half normal to normal saline at 125 mL per hour, levothyroxine 25 mcg daily. LABORATORY DATA: Include as follows; as of 05/30/2017, WBC 4.4, hemoglobin 11.2, hematocrit is 34, platelets is 130. Sodium 135, potassium 4.5, chloride 101, CO2 of 19, BUN 80, creatinine 3.7, glucose 86, calcium 8.5, CPK 3561. IMPRESSION: In summary, Mr. Cunningham is a 81 years old elderly -[place] male with hypertension, coronary artery disease, status post coronary artery bypass graft, gout; tophaceous, and chronic kidney disease with a baseline creatinine about 2.5 to 3, was admitted with weakness status post fall and increased BUN and creatinine, hyperkalemia, metabolic acidosis and low bicarbonate. 1. Renal failure, acute on chronic kidney disease, stage IV, most likely secondary to hypertensive nephrosclerosis, cannot rule out chronic interstitial nephritis. 2. Rhabdomyolysis. 3. Metabolic acidosis secondary to renal failure. 4. Hypertension. PLAN: Continue IV fluids and normal saline at 125 mL per hour and continue his current blood pressure medications; hydralazine and Norvasc, actually with increasing the hydralazine dose. Physical therapy evaluation and also repeat labs; BMP and CPK level in a.m. We will follow with you. Thank you for allowing me to participate in your patient's care. Hernan Peterson MD
[2017-05-31] MEDS: Levothyroxine 25 MCG TAB PO SCH (06:36)
[2017-05-31] MEDS: (Novolin R) Insulin Human Regular 100 units/ml vial SC SCH ×4 (07:36→21:31)
[2017-05-31 08:04] LABS: BASO # 0.1 K/uL (0.0-0.2); BASO % 1.3 % (0.0-2.0); EOS # 0.2 K/uL (0.0-0.7); EOS % 4.6 % (0.0-4.0); HEMATOCRIT 32.6 % (35.0-51.0); LYMPH % 21.8 % (20.0-40.0); MEAN CELL VOLUME 82.9 fL (80.0-94.0); MEAN CORPUSCULAR HGB CONC 32.5 g/dL (33.0-37.0); MEAN PLATELET VOLUME 9.3 fL (7.2-11.7); MONO # 0.4 K/uL (0.0-0.8); RED CELL DISTRIBUTION WIDTH 14.5 % (11.5-14.5); WHITE BLOOD COUNT 4.5 K/uL (4.8-10.8)
[2017-05-31 08:16] LABS: POTASSIUM 4.3 mmol/L (3.6-5.2)
[2017-05-31 08:20] LABS: CALCIUM 8.3 mg/dl (8.6-10.4)
--- NOTE | 2017-05-31 12:09 | CP.PCM.PN ---
Subjective - Date & Time of Evaluation Date of Evaluation: 05/31/17 Time of Evaluation: 12:04 - Subjective Subjective: weak,burning pain in legs. Objective - Vital Signs/Intake and Output Vital Signs (last 24 hours): Temp Pulse Resp BP Pulse Ox 97.7 F 99 H 20 138/73 97 05/31/17 07:34 05/31/17 08:00 05/31/17 07:34 05/31/17 07:34 05/31/17 07:34 Intake and Output: 05/31/17 05/31/17 06:59 18:59 Intake Total 1000 Output Total 300 Balance 700 - Medications Medications: Current Medications Amlodipine Besylate (Norvasc) 10 mg PO DAILY [facility] Last Admin: 05/31/17 09:38 Dose: 10 mg Aspirin (Ecotrin) 81 mg PO DAILY [facility] Last Admin: 05/31/17 09:37 Dose: 81 mg Calcitriol (Rocaltrol) 0.25 mcg PO MWF [facility] Last Admin: 05/31/17 09:37 Dose: 0.25 mcg Clopidogrel Bisulfate (Plavix) 75 mg PO DAILY [facility] Last Admin: 05/31/17 09:38 Dose: 75 mg Colchicine (Colocrys) 0.6 mg PO QOD [facility] Last Admin: 05/31/17 09:38 Dose: 0.6 mg Heparin Sodium (Porcine) (Heparin) 5,000 units SC BID [facility] Last Admin: 05/31/17 09:37 Dose: 5,000 units Hydralazine HCl (Apresoline) 25 mg PO Q8H [facility] Last Admin: 05/31/17 06:22 Dose: 25 mg Sodium Chloride (Sodium Chloride 0.9%) 1,000 mls @ 125 mls/hr IV .Q8H [facility] Stop: 06/01/17 09:31 Last Admin: 05/31/17 01:30 Dose: 125 mls/hr Insulin Human Regular (Novolin R) 0 unit SC ACH[facility] PRN Reason: Protocol Last Admin: 05/31/17 11:41 Dose: Not Given Levothyroxine Sodium (Synthroid) 25 mcg PO DAILY@0630 [facility] Last Admin: 05/31/17 06:36 Dose: 25 mcg Rosuvastatin Calcium (Crestor) 5 mg PO HS [facility] Last Admin: 05/30/17 22:38 Dose: 5 mg Sodium Bicarbonate (Sodium Bicarbonate Tab) 650 mg PO Q6 [facility] Last Admin: 05/31/17 06:22 Dose: 650 mg - Labs Labs: 05/31/17 07:52 05/31/17 07:52 PT 12.6 SECONDS (9.7-12.2) H 05/27/17 06:00 INR 1.1 05/27/17 06:00 APTT 29 SECONDS (21-34) 05/27/17 06:00 - Constitutional Appears: Chronically Ill - Head Exam Head Exam: NORMOCEPHALIC - Neck Exam Neck Exam: Normal Inspection - Respiratory Exam Respiratory Exam: Clear to Ausculation Bilateral - Cardiovascular Exam Cardiovascular Exam: REGULAR RHYTHM, Murmur - GI/Abdominal Exam GI & Abdominal Exam: Soft - Extremities Exam Extremities Exam: absent: Pedal Edema - Neurological Exam Neurological Exam: Alert, Oriented x3 Assessment and Plan - Assessment and Plan (Free Text) Assessment: cr is better.ct hydration.ckd.htn.
--- NOTE | 2017-05-31 18:19 | CP.PCM.PN ---
Subjective - Date & Time of Evaluation Date of Evaluation: 05/31/17 Time of Evaluation: 18:19 - Subjective Subjective: pt is adenike nd examined, follow up consult is dictated #[id number] c/w iv hydration Objective - Vital Signs/Intake and Output Vital Signs (last 24 hours): Temp Pulse Resp BP Pulse Ox 97.8 F 96 H 20 152/79 H 96 05/31/17 16:00 05/31/17 16:00 05/31/17 16:00 05/31/17 16:00 05/31/17 16:00 Intake and Output: 05/31/17 05/31/17 06:59 18:59 Intake Total 1000 1460 Output Total 300 450 Balance 700 1010 - Medications Medications: Current Medications Amlodipine Besylate (Norvasc) 10 mg PO DAILY [facility] Last Admin: 05/31/17 09:38 Dose: 10 mg Aspirin (Ecotrin) 81 mg PO DAILY [facility] Last Admin: 05/31/17 09:37 Dose: 81 mg Calcitriol (Rocaltrol) 0.25 mcg PO MWF [facility] Last Admin: 05/31/17 09:37 Dose: 0.25 mcg Clopidogrel Bisulfate (Plavix) 75 mg PO DAILY [facility] Last Admin: 05/31/17 09:38 Dose: 75 mg Colchicine (Colocrys) 0.6 mg PO QOD [facility] Last Admin: 05/31/17 09:38 Dose: 0.6 mg Heparin Sodium (Porcine) (Heparin) 5,000 units SC BID [facility] Last Admin: 05/31/17 09:37 Dose: 5,000 units Hydralazine HCl (Apresoline) 25 mg PO Q8H [facility] Last Admin: 05/31/17 12:52 Dose: 25 mg Sodium Chloride (Sodium Chloride 0.9%) 1,000 mls @ 125 mls/hr IV .Q8H [facility] Stop: 06/01/17 09:31 Last Admin: 05/31/17 12:53 Dose: 125 mls/hr Insulin Human Regular (Novolin R) 0 unit SC ACHS [facility] PRN Reason: Protocol Last Admin: 05/31/17 16:33 Dose: Not Given Levothyroxine Sodium (Synthroid) 25 mcg PO DAILY@0630 [facility] Last Admin: 05/31/17 06:36 Dose: 25 mcg Rosuvastatin Calcium (Crestor) 5 mg PO HS [facility] Last Admin: 05/30/17 22:38 Dose: 5 mg Sodium Bicarbonate (Sodium Bicarbonate Tab) 650 mg PO Q6 DAW[facility] Last Admin: 05/31/17 12:52 Dose: 650 mg - Labs Labs: 05/31/17 07:52 05/31/17 07:52 PT 12.6 SECONDS (9.7-12.2) H 05/27/17 06:00 INR 1.1 05/27/17 06:00 APTT 29 SECONDS (21-34) 05/27/17 06:00
[2017-06-01] MEDS: Sodium Chloride 0.9% 1,000 ML IV SCH ×5 (01:30→19:47)
[2017-06-01] MEDS: Levothyroxine 25 MCG TAB PO SCH (05:48)
[2017-06-01] MEDS: (Novolin R) Insulin Human Regular 100 units/ml vial SC SCH ×4 (07:30→21:46)
[2017-06-01 08:32] LABS: HEMATOCRIT 32.1 % (35.0-51.0); MEAN CORPUSCULAR HGB CONC 32.5 g/dL (33.0-37.0); MEAN PLATELET VOLUME 9.3 fL (7.2-11.7); RED CELL DISTRIBUTION WIDTH 14.2 % (11.5-14.5); WHITE BLOOD COUNT 4.6 K/uL (4.8-10.8)
[2017-06-01 08:55] LABS: ALB/GLOB RATIO 0.8 (1.0-2.1); BILIRUBIN,TOTAL 0.6 mg/dL (0.2-1.3); CALCIUM 8.7 mg/dl (8.6-10.4); POTASSIUM 4.4 mmol/L (3.6-5.2)
--- NOTE | 2017-06-01 10:35 | CP.PCM.PN ---
Subjective - Date & Time of Evaluation Date of Evaluation: 06/01/17 Time of Evaluation: 10:35 - Subjective Subjective: pt is seen and examined, follow up consult is dictated #[id number] c/w ivf labs in am Objective - Vital Signs/Intake and Output Vital Signs (last 24 hours): Temp Pulse Resp BP Pulse Ox 97.7 F 103 H 20 153/78 H 98 06/01/17 08:00 06/01/17 08:00 06/01/17 08:00 06/01/17 08:00 06/01/17 08:00 Intake and Output: 06/01/17 06/01/17 06:59 18:59 Intake Total 1000 Balance 1000 - Medications Medications: Current Medications Amlodipine Besylate (Norvasc) 10 mg PO DAILY [facility] Last Admin: 06/01/17 09:31 Dose: 10 mg Aspirin (Ecotrin) 81 mg PO DAILY [facility] Last Admin: 06/01/17 09:30 Dose: 81 mg Calcitriol (Rocaltrol) 0.25 mcg PO MWF [facility] Last Admin: 05/31/17 09:37 Dose: 0.25 mcg Clopidogrel Bisulfate (Plavix) 75 mg PO DAILY [facility] Last Admin: 06/01/17 09:30 Dose: 75 mg Colchicine (Colocrys) 0.6 mg PO QOD [facility] Last Admin: 05/31/17 09:38 Dose: 0.6 mg Heparin Sodium (Porcine) (Heparin) 5,000 units SC BID [facility] Last Admin: 06/01/17 09:31 Dose: 5,000 units Hydralazine HCl (Apresoline) 25 mg PO Q8H [facility] Last Admin: 06/01/17 05:13 Dose: 25 mg Insulin Human Regular (Novolin R) 0 unit SC [facility] PRN Reason: Protocol Last Admin: 06/01/17 07:30 Dose: Not Given Levothyroxine Sodium (Synthroid) 25 mcg PO DAILY@0630 [facility] Last Admin: 06/01/17 05:48 Dose: 25 mcg Sodium Bicarbonate (Sodium Bicarbonate Tab) 650 mg PO Q6 [facility] Last Admin: 06/01/17 05:13 Dose: 650 mg - Labs Labs: 06/01/17 08:18 06/01/17 08:18 PT 12.6 SECONDS (9.7-12.2) H 05/27/17 06:00 INR 1.1 05/27/17 06:00 APTT 29 SECONDS (21-34) 05/27/17 06:00
[2017-06-01 14:09] LABS: BASO # 0.1 K/uL (0.0-0.2); BASO % 1.1 % (0.0-2.0); EOS # 0.2 K/uL (0.0-0.7); EOS % 3.8 % (0.0-4.0); HEMATOCRIT 33.3 % (35.0-51.0); LYMPH # 1.1 K/uL (1.0-4.3); LYMPH % 22.3 % (20.0-40.0); MEAN CELL VOLUME 83.3 fL (80.0-94.0); MEAN CORPUSCULAR HEMOGLOBIN 26.9 pg (27.0-31.0); MEAN CORPUSCULAR HGB CONC 32.3 g/dL (33.0-37.0); MEAN PLATELET VOLUME 9.1 fL (7.2-11.7); MONO # 0.4 K/uL (0.0-0.8); MONO % 8.1 % (0.0-10.0); NRBC % 0.1 % (0.0-2.0); RED CELL DISTRIBUTION WIDTH 14.6 % (11.5-14.5); WHITE BLOOD COUNT 4.7 K/uL (4.8-10.8)
[2017-06-01 14:21] LABS: POTASSIUM 4.8 mmol/L (3.6-5.2)
[2017-06-01 14:24] LABS: CALCIUM 8.7 mg/dl (8.6-10.4)
--- NOTE | 2017-06-01 17:37 | CP.PCM.PN ---
Subjective - Date & Time of Evaluation Date of Evaluation: 06/01/17 Time of Evaluation: 11:00 - Subjective Subjective: COVERING DR. GARCIA. CHART REVIEWED. C/O LEG PAIN AND BURNING. DEHYDRATION PRESENT. CRF. GENERAL DEBILITY PRESENT. Objective - Vital Signs/Intake and Output Vital Signs (last 24 hours): Temp Pulse Resp BP Pulse Ox 97.8 F 93 H 20 157/74 H 100 06/01/17 16:18 06/01/17 16:18 06/01/17 16:18 06/01/17 16:18 06/01/17 16:18 Intake and Output: 06/01/17 06/01/17 06:59 18:59 Intake Total 1000 1280 Output Total 1120 Balance 1000 160 - Medications Medications: Current Medications Amlodipine Besylate (Norvasc) 10 mg PO DAILY [facility] Last Admin: 06/01/17 09:31 Dose: 10 mg Aspirin (Ecotrin) 81 mg PO DAILY [facility] Last Admin: 06/01/17 09:30 Dose: 81 mg Calcitriol (Rocaltrol) 0.25 mcg PO MWF [facility] Last Admin: 05/31/17 09:37 Dose: 0.25 mcg Clopidogrel Bisulfate (Plavix) 75 mg PO DAILY [facility] Last Admin: 06/01/17 09:30 Dose: 75 mg Colchicine (Colocrys) 0.6 mg PO QOD [facility] Last Admin: 05/31/17 09:38 Dose: 0.6 mg Heparin Sodium (Porcine) (Heparin) 5,000 units SC BID [facility] Last Admin: 06/01/17 17:31 Dose: 5,000 units Hydralazine HCl (Apresoline) 25 mg PO Q8H [facility] Last Admin: 06/01/17 14:24 Dose: 25 mg Sodium Chloride (Sodium Chloride 0.9%) 1,000 mls @ 100 mls/hr IV .Q10H [facility] Last Admin: 06/01/17 14:13 Dose: Not Given Insulin Human Regular (Novolin R) 0 unit SC [facility] PRN Reason: Protocol Last Admin: 06/01/17 17:25 Dose: Not Given Levothyroxine Sodium (Synthroid) 25 mcg PO DAILY@0630 [facility] Last Admin: 06/01/17 05:48 Dose: 25 mcg Sodium Bicarbonate (Sodium Bicarbonate Tab) 650 mg PO Q6 [facility] Last Admin: 06/01/17 14:24 Dose: 650 mg - Labs Labs: 06/01/17 13:59 06/01/17 13:59 PT 12.6 SECONDS (9.7-12.2) H 05/27/17 06:00 INR 1.1 05/27/17 06:00 APTT 29 SECONDS (21-34) 05/27/17 06:00 - Constitutional Appears: Non-toxic, Chronically Ill - Eye Exam Eye Exam: Normal appearance, PERRL - ENT Exam ENT Exam: Mucous Membranes Moist - Respiratory Exam Respiratory Exam: Clear to Ausculation Bilateral, NORMAL BREATHING PATTERN - Cardiovascular Exam Cardiovascular Exam: REGULAR RHYTHM, +S1, +S2 - GI/Abdominal Exam GI & Abdominal Exam: Soft, Normal Bowel Sounds - Extremities Exam Extremities Exam: Full ROM, Normal Capillary Refill, Normal Inspection. absent : Joint Swelling, Pedal Edema - Neurological Exam Neurological Exam: Alert, Awake, CN II-XII Intact, Normal Gait, Oriented x3 Assessment and Plan - Assessment and Plan (Free Text) Assessment: RENAL FAILURE. HYPERKALEMIA. HD. DM Plan: CT PRESENT TREATMENT.
--- NOTE | 2017-06-02 04:06 | PN ---
LOCATION: Room 557, bed A. REQUESTED BY: Jeffery Thrasher MD REASON FOR FOLLOWUP: Acute renal failure, chronic kidney disease. SUBJECTIVE: The patient is a 81-year-old elderly male with past medical history significant for hypertension, coronary artery disease, status post CABG, gout, chronic kidney disease with a baseline creatinine 2.5 to 2.7, who was admitted with history of severe weakness and status post fall when he tried to get into car and without any loss of consciousness and found to have increased BUN and creatinine, severe hyperkalemia, metabolic acidosis, and also found to have elevated CPK levels. The patient was not in acute distress. Denies any complaints this morning. Denies any chest pain, palpitation. Denies any fever or cough. No abdominal pain. No nausea, vomiting, or diarrhea. PHYSICAL EXAMINATION GENERAL: The patient is a 81-year-old elderly male, moderately built, moderately nourished, not in distress. VITAL SIGNS: Blood pressure this morning 153/78, pulse 103, respirations 20, temperature 97.7, saturation 98%. Height 6 feet 3 inches and weight is 178 pounds. HEENT: Pupils are normal and reactive to light and accommodation. Conjunctivae pink, sclerae anicteric. Tongue is moist. Trachea is midline. LUNGS: Symmetric on both sides. Bilateral breath sounds present. Clear on auscultation. CVS: [place] at the fifth intercostal space and midclavicular line. S1 and S2 audible. No murmur, gallop. The patient has a midsternal scar present. ABDOMEN: Normal in appearance. Soft. Tympanic. No guarding. No rigidity. No hepatosplenomegaly. REGISTERED HEALTH NURSE: The patient is alert, awake, oriented x3. Nonfocal on examination. Cranial nerves II through XII grossly intact. Sensory and motor system is within normal limits. EXTREMITIES: No cyanosis, no clubbing, no edema. 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 LABORATORY DATA: Include as follows, as of 06/01/2017, WBC 4.7, hemoglobin 10.8, hematocrit is 33.3, platelets 141. Sodium 137, potassium 4.8, chloride 107, CO2 of 17, BUN 67, creatinine 2.7, glucose is 84, calcium is 8.7. His CPK level is 2581. As of this morning, his BUN 67, creatinine 2.9, AST is 283, ALT is 264, and alkaline phosphatase is 126. MEDICATIONS: His current medications include as follows, hydralazine 25 mg p.o. q. 8 hours, colchicine 0.6 mg p.o. q.o.d., aspirin 81 mg daily, subcutaneous heparin 5000 b.i.d., Norvasc 10 mg daily, Plavix 75 mg daily, and Rocaltrol 0.25 mcg three times a week, sodium bicarbonate 650 p.o. q. 6, IV fluids normal saline at 100 mL per hour, levothyroxine 25 mcg p.o. daily. In summary, the patient is a 81-year-old elderly -[place] male with a history of hypertension, hyperlipidemia, hypothyroidism, gout, chronic kidney disease with a baseline creatinine about 2.5 to 2.7, was admitted with severe weakness and found to have elevated CPK levels and abnormal LFTs, hyperkalemia, metabolic acidosis, increased BUN and creatinine. 1. Renal failure, acute on chronic kidney disease secondary to intravascular volume depletion, cannot rule out ATN secondary to rhabdomyolysis. 2. Rhabdomyolysis, most likely secondary to recent fall prior to the admission, cannot rule out secondary to Crestor. 3. Hypertension. 4. Gout. 5. Hypothyroidism. PLAN: Continue IV fluids, normal saline at 100 mL per hour. Continue to hold Crestor at this time and repeat LFTs, BMP, and CPK level in a.m. Continue all his current medication, hydralazine, and Norvasc. We will follow with you. Thank you for allowing me to participate in your patient's care. Hernan Peterson MD
[2017-06-02] MEDS: Levothyroxine 25 MCG TAB PO SCH (05:32)
[2017-06-02] MEDS: Sodium Chloride 0.9% 1,000 ML IV SCH ×3 (05:32→17:12)
[2017-06-02] MEDS: (Novolin R) Insulin Human Regular 100 units/ml vial SC SCH ×4 (07:30→21:58)
[2017-06-02 11:30] LABS: BASO % 0.9 % (0.0-2.0); EOS # 0.2 K/uL (0.0-0.7); EOS % 4.7 % (0.0-4.0); HEMATOCRIT 32.4 % (35.0-51.0); LYMPH # 1.1 K/uL (1.0-4.3); LYMPH % 23.8 % (20.0-40.0); MEAN CELL VOLUME 83.2 fL (80.0-94.0); MEAN CORPUSCULAR HEMOGLOBIN 27.1 pg (27.0-31.0); MEAN CORPUSCULAR HGB CONC 32.6 g/dL (33.0-37.0); MEAN PLATELET VOLUME 8.9 fL (7.2-11.7); MONO # 0.4 K/uL (0.0-0.8); MONO % 9.1 % (0.0-10.0); NRBC % 0.1 % (0.0-2.0); RED CELL DISTRIBUTION WIDTH 14.5 % (11.5-14.5); WHITE BLOOD COUNT 4.6 K/uL (4.8-10.8)
[2017-06-02 11:53] LABS: CALCIUM 8.9 mg/dl (8.6-10.4); POTASSIUM 4.5 mmol/L (3.6-5.2)
--- NOTE | 2017-06-02 12:30 | CP.PCM.PN ---
Subjective - Date & Time of Evaluation Date of Evaluation: 06/02/17 Time of Evaluation: 12:29 - Subjective Subjective: pt is seen and examined, follow up consult is dictated #[id number] renal function is back to his base line c/w pt/ot consider NASIM evaluation Objective - Vital Signs/Intake and Output Vital Signs (last 24 hours): Temp Pulse Resp BP Pulse Ox 98.3 F 96 H 20 159/84 H 96 06/02/17 07:59 06/02/17 07:59 06/02/17 07:59 06/02/17 07:59 06/02/17 07:59 Intake and Output: 06/02/17 06/02/17 06:59 18:59 Intake Total 1930 Output Total 1000 Balance 930 - Medications Medications: Current Medications Amlodipine Besylate (Norvasc) 10 mg PO DAILY [facility] Last Admin: 06/02/17 09:18 Dose: 10 mg Aspirin (Ecotrin) 81 mg PO DAILY [facility] Last Admin: 06/02/17 09:18 Dose: 81 mg Calcitriol (Rocaltrol) 0.25 mcg PO MWF [facility] Last Admin: 05/31/17 09:37 Dose: 0.25 mcg Clopidogrel Bisulfate (Plavix) 75 mg PO DAILY [facility] Last Admin: 06/02/17 09:18 Dose: 75 mg Colchicine (Colocrys) 0.6 mg PO QOD [facility] Last Admin: 06/02/17 09:18 Dose: 0.6 mg Hydralazine HCl (Apresoline) 25 mg PO Q8H [facility] Last Admin: 06/02/17 05:32 Dose: 25 mg Sodium Chloride (Sodium Chloride 0.9%) 1,000 mls @ 100 mls/hr IV .Q10H [facility] Last Admin: 06/02/17 06:59 Dose: Not Given Insulin Human Regular (Novolin R) 0 unit SC ACHS [facility] PRN Reason: Protocol Last Admin: 06/02/17 07:30 Dose: Not Given Levothyroxine Sodium (Synthroid) 25 mcg PO DAILY@0630 [facility] Last Admin: 06/02/17 05:32 Dose: 25 mcg Sodium Bicarbonate (Sodium Bicarbonate Tab) 650 mg PO Q6 [facility] Last Admin: 06/02/17 05:32 Dose: 650 mg - Labs Labs: 06/02/17 11:27 09/10/17 11:27 PT 12.6 SECONDS (9.7-12.2) H 05/27/17 06:00 INR 1.1 05/27/17 06:00 APTT 29 SECONDS (21-34) 05/27/17 06:00
[2017-06-02] MEDS: Acetaminophen-Codeine 300/30 mg Tab PO PRN (19:02)
--- NOTE | 2017-06-02 20:17 | PN ---
FOLLOWUP RENAL CONSULTATION LOCATION: The patient is located in room 557, bed A. REQUESTED BY: Jeffery Thrasher MD REASON FOR FOLLOWUP: Acute renal failure, chronic kidney disease, rhabdomyolysis, metabolic acidosis and hyperkalemia. HISTORY OF PRESENT ILLNESS: The patient is a 81-year-old elderly -[place] male with past medical history significant for long standing hypertension, coronary artery disease, status post CABG, chronic kidney disease III, tophaceous gout, hyperkalemia, metabolic acidosis was admitted with generalized weakness and unable to ambulate status post fall while he is trying to get into the car and the patient was found to have elevated CPK levels and also increased BUN, creatinine, hyperkalemia, metabolic acidosis on admission. The patient is being hydrated. The patient is feeling much better, not in acute distress. Denies any headache or dizziness. Denies any chest pain or palpitation. Denies any abdominal pain. No dysuria or frequency. The patient has complaints of frequent urination, claims he is passing about 100 mL each time, not in distress. PHYSICAL EXAMINATION: VITAL SIGNS: Blood pressure 159/84, pulse 96, respirations 20, temperature 98.3 and saturation 96%. GENERAL: The patient is a 81-year-old elderly -[place] male, moderately built, moderately nourished, not in acute distress. HEENT: Pupils are normal and reactive to light and accommodation. Conjunctivae pink, sclerae anicteric. Tongue is moist. Trachea is midline. LUNGS: Symmetric on both sides. Bilateral breath sounds present. Clear on auscultation. CARDIOVASCULAR: [place] at the fifth intercostal space and midclavicular line. S1 and S2 audible. No murmur. No gallop. ABDOMEN: Normal in appearance. Soft. Tympanic. No guarding. No rigidity. No hepatosplenomegaly. CENTRAL NERVOUS SYSTEM: The patient is alert, awake and oriented x3. Nonfocal on examination. Cranial nerves II through XII grossly intact. Sensory and motor system is within normal limits. EXTREMITIES: No cyanosis. No clubbing. No edema. The patient has son both upper extremities on the hands. MEDICATIONS: His current medications include as follows, hydralazine 25 mg p.o. q. 8 hours, colchicine 0.6 mg p.o. q.o.d., Ecotrin 81 mg daily, amlodipine 10 mg daily, Plavix 75 mg daily, Rocaltrol 0.25 mcg 3 times a week, sodium bicarbonate 650 p.o. q. 6, IV fluids normal saline at 100 mL per hour and levothyroxine 25 mcg daily. LABORATORY DATA: Include as follows, WBC 4.6, hemoglobin 10.6, hematocrit is 32.4 and platelets 142. Sodium 139, potassium 4.5, chloride 105, CO2 of 21, BUN 63, creatinine 2.7, glucose 86, calcium 8.9 and CPK 1394. In summary, the patient is a 81-year-old elderly -[place] male with a history of hypertension; coronary artery disease, status post coronary artery bypass grafting; gout; chronic kidney disease, stage III to stage IV, was admitted with increased BUN and creatinine, weakness and status post fall, hyperkalemia and metabolic acidosis. 1. Renal failure, acute on chronic kidney disease stage III to stage IV. Renal function is gradually improving with hydration. 2. Rhabdomyolysis. 3. Hypertension. 4. Metabolic acidosis secondary to renal failure. Since bicarb is improving, continue sodium bicarb 650 mg q. 6 hours, continue IV fluids and increase hydralazine to 25 mg q. 6 hours. We will follow with you. Thank you for allowing me to participate in your patient's care. Repeat labs in a.m. Hernan Peterson MD
[2017-06-03] MEDS: Sodium Chloride 0.9% 1,000 ML IV SCH ×2 (03:22→13:15)
[2017-06-03] MEDS ORDERED: Aluminum Hydroxide/Magnesium Hydroxide Susp (30 mL) PO ONE (04:20)
[2017-06-03] MEDS: Levothyroxine 25 MCG TAB PO SCH (05:45)
[2017-06-03] MEDS: (Novolin R) Insulin Human Regular 100 units/ml vial SC SCH ×4 (07:14→21:50)
--- NOTE | 2017-06-03 10:12 | RAD ---
Left foot three views History: Left hallux pain. Comparison: None available. Findings: Severe near complete subluxation of the 1st distal phalanx laterally in relationship to the proximal phalanx with bony destructive changes at the joint space laterally. Large intraosseous cystic foci seen at the medial head of the 1st metatarsal bone which is of uncertain clinical etiology and may be the sequelae of acute inflammatory and or infectious change. Clinical correlation. Correlation with MRI may be helpful. Moderate hallux valgus deformity. Diffuse osteopenia. Prominent degenerative changes at the 5th MTP joint space with subchondral sclerosis and prominent peripheral erosions. Prominent degenerative changes at the 1st through 4th MTP joint spaces. Prominent productive change at the dorsal aspect of the midfoot. Impression: Severe near complete subluxation of the 1st distal phalanx laterally in relationship to the proximal phalanx with bony destructive changes at the joint space laterally. Large intraosseous cystic foci seen at the medial head of the 1st metatarsal bone which is of uncertain clinical etiology and may be the sequelae of acute inflammatory and or infectious change. Clinical correlation. Correlation with MRI may be helpful. Moderate hallux valgus deformity. Diffuse osteopenia. Prominent degenerative changes at the 5th MTP joint space with subchondral sclerosis and prominent peripheral erosions. Prominent degenerative changes at the 1st through 4th MTP joint spaces. Prominent productive change at the dorsal aspect of the midfoot.
--- NOTE | 2017-06-03 10:58 | US ---
HISTORY: r/o bladder out let obstruction, r/o bph COMPARISON: None available. TECHNIQUE: Transabdominal pelvic ultrasound was performed in longitudinal and transverse planes. FINDINGS: Patient voided prior to this examination being performed. Urinary bladder is distended only to 39 cc off the following measurements, 3.6 x 3.2 x 6.4 cm. Urinary bladder wall is smooth but thickened which could be a function of limited urinary volume. No urolithiasis or nodularity is identified. Bilateral ureteral jets have been captured on color Doppler ultrasound. The prostate gland is enlarged measuring 5.1 x 4.1 x 5.7 cm. OTHER FINDINGS: None. IMPRESSION: Patient voided immediately prior to comment ultrasound with a partially decompressed urinary bladder identified up to only 39 cc. The wall of the urinary bladder is poorly evaluated however there is no acute nodularity or focal lesion appreciable. No urolithiasis. Outlet obstruction is somewhat unlikely however clinical correlation is advised.
[2017-06-03 11:33] LABS: BASO % 0.8 % (0.0-2.0); EOS # 0.4 K/uL (0.0-0.7); EOS % 6.8 % (0.0-4.0); HEMATOCRIT 30.2 % (35.0-51.0); LYMPH # 1.3 K/uL (1.0-4.3); MEAN CELL VOLUME 83.3 fL (80.0-94.0); MEAN CORPUSCULAR HEMOGLOBIN 27.3 pg (27.0-31.0); MEAN CORPUSCULAR HGB CONC 32.8 g/dL (33.0-37.0); MEAN PLATELET VOLUME 8.4 fL (7.2-11.7); MONO # 0.4 K/uL (0.0-0.8); NRBC % 0.1 % (0.0-2.0); RED CELL DISTRIBUTION WIDTH 14.6 % (11.5-14.5); WHITE BLOOD COUNT 5.3 K/uL (4.8-10.8)
[2017-06-03 11:48] LABS: CALCIUM 8.7 mg/dl (8.6-10.4); POTASSIUM 4.7 mmol/L (3.6-5.2)
--- NOTE | 2017-06-03 13:36 | PN ---
FOLLOWUP RENAL CONSULTATION DATE: LOCATION: The patient is located in room 557, bed A. REQUESTED BY: Jeffery Thrasher MD REASON FOR FOLLOWUP: Acute renal failure and chronic kidney disease. HISTORY OF PRESENT ILLNESS: Mr. Jasso is a 81 years old elderly, male with a past medical history significant for longstanding hypertension, coronary artery disease, chronic kidney disease, gout, and hypothyroidism who was admitted with weakness and status post fall and found to have elevated BUN and creatinine, hyperkalemia, metabolic acidosis, and elevated CPK. The patient is being hydrated. The patient is feeling better, claims he is urinating frequently now. Denies any chest pain or palpitations. Denies any fever or cough. No abdominal pain. No nausea, vomiting, or diarrhea. PHYSICAL EXAMINATION: VITAL SIGNS: As follows; blood pressure 152/79, pulse 96, respirations 20, temperature 97.8, saturation 96%, height 6 feet 3 inches, and weight 178 pounds. GENERAL: Mr. Jasso is a 81-year-old elderly male, moderately developed, moderately nourished, and not in acute distress. HEENT: Pupils are normal and reactive to light and accommodation. Conjunctivae pink. Sclerae anicteric. Tongue is moist. Trachea is midline. LUNGS: Symmetry on both sides bilaterally. Bilateral breath sounds present. Clear on auscultation. CARDIOVASCULAR: [place] at the fifth intercostal space, midclavicular line, S1 and S2 audible. No murmur. No gallop. ABDOMEN: Normal in appearance. Soft and tympanic. No guarding. No hepatosplenomegaly. CENTRAL NERVOUS SYSTEM: The patient is alert, awake, and oriented x3. Nonfocal neuro examination. Cranial nerves II through XII grossly intact. Sensory and motor system is within normal limits. EXTREMITIES: No cyanosis. No clubbing. No edema. The patient has tophi in both upper extremities. CURRENT MEDICATIONS: Include as follows; hydralazine 25 mg p.o. q.8 hours, colchicine 0.6 mg p.o. every other day, Ecotrin 81 mg p.o. daily, subcutaneous heparin 5000 b.i.d., Norvasc 10 mg daily, Novolin R per sliding scale, Plavix 75 mg daily, Rocaltrol 0.25 mcg 3 times a week, sodium bicarbonate 650 mg p.o. q.6 hours, IV fluids normal saline at 125 mL per hour, and Synthroid 25 mcg p.o. daily. LABORATORY DATA: Include as follows; as of 05/31/2017; WBC 4.5, hemoglobin 10.6, hematocrit is 32.6, and platelets are 135. Sodium 136, potassium 4.3, chloride 106, CO2 of 19, BUN is 75, and creatinine is 3.3, glucose is 86, calcium is 8.3, and CPK is 3614. ASSESSMENT AND PLAN: In summary, Mr. Jasso is a 81-year-old elderly, male with past medical history significant for hypertension, coronary artery disease, gout, chronic kidney disease with a baseline creatinine about 2.5 to about 3 who was admitted with weakness and status post fall and elevated CPK, increased BUN and creatinine, hyperkalemia, and metabolic acidosis. 1. Renal failure, acute on chronic kidney disease secondary to most likely acute tubular necrosis and secondary to rhabdomyolysis. 2. Metabolic acidosis secondary to renal failure. 3. Status post hyperkalemia. 4. Hypertension. 5. Rhabdomyolysis secondary to fall, cannot rule out secondary to Crestor. Plan, we will discontinue Crestor, continue normal saline IV fluids at 125 mL per hour and repeat CBC, CMP, and CPK level in the a.m. Continue bedside physical therapy. 6. Hypothyroidism. Continue Synthroid 25 mcg p.o. daily and also continue sodium bicarbonate, calcitriol, amlodipine, and hydralazine. 7. Gout. Continue colchicine 0.6 mg p.o. every other day. We will follow with you. Thank you for allowing me to participate in your patient's care. Hernan Peterson MD
[2017-06-03] MEDS: Acetaminophen-Codeine 300/30 mg Tab PO PRN ×2 (13:39→18:13)
--- NOTE | 2017-06-03 14:08 | CP.PCM.CON ---
History of Present Illness - History of Present Illness History of Present Illness: Podiatry Consult Note- Dr. Edge: Mr. Cunningham is a 81 yo male patient w/ pmh HTN and CAD who was seen at bedside today following request for podiatry consult. Of note, pt was recently admitted (05/27/17) for syncope, generalized weakness and ARF. Pt seen resting in bed at time of visit. Pt states that he has pain in his left great toe. Says that he has had pain to the toe for the past few days, does not recall how it began. Denies any recent trauma or injuries. Rates the pain as a 7/10 on a VAS scale at its worst. Denies f/n/v/c/sob at this time. Does also complain of bilateral leg pain and cramping, which he says this has been occurring for "some time". Review of Systems - Review of Systems Review of Systems: all systems reviewed and negative except HPI Past Patient History - Past Medical History & Family History Past Medical History?: Yes - Past Social History Smoking Status: Former Smoker - CARDIAC Hx Cardiac Disorders: Yes (CAD, CABG) Hx Hypertension: Yes - MUSCULOSKELETAL/RHEUMATOLOGICAL Hx Arthritis: Yes (OA, Gout) - PSYCHIATRIC Hx Substance Use: No - SURGICAL HISTORY Hx Surgeries: Yes Other/Comment: "Quadruple bypass" - ANESTHESIA Hx Anesthesia: Yes Hx Anesthesia Reactions: No Hx Malignant Hyperthermia: No Meds Allergies/Adverse Reactions: Allergies Allergy/AdvReac Type Severity Reaction Status Date / Time No Known Allergies Allergy Verified 05/27/17 05:37 - Medications Medications: Current Medications Acetaminophen/Codeine Phosphate (Tylenol/Codeine 300 Mg/30 Mg) 1 ea PO TID PRN PRN Reason: Pain, moderate (4-7) Last Admin: 06/03/17 13:39 Dose: 1 ea Amlodipine Besylate (Norvasc) 10 mg PO DAILY [facility] Last Admin: 06/03/17 10:53 Dose: 10 mg Aspirin (Ecotrin) 81 mg PO DAILY [facility] Last Admin: 06/03/17 10:53 Dose: 81 mg Calcitriol (Rocaltrol) 0.25 mcg PO MWF [facility] Last Admin: 06/03/17 08:23 Dose: 0.25 mcg Clopidogrel Bisulfate (Plavix) 75 mg PO DAILY [facility] Last Admin: 06/03/17 10:53 Dose: 75 mg Colchicine (Colocrys) 0.6 mg PO QOD [facility] Last Admin: 06/02/17 09:18 Dose: 0.6 mg Gabapentin (Neurontin) 100 mg PO BID [facility] Last Admin: 06/03/17 10:53 Dose: 100 mg Hydralazine HCl (Apresoline) 25 mg PO Q8H [facility] Last Admin: 06/03/17 13:37 Dose: 25 mg Sodium Chloride (Sodium Chloride 0.9%) 1,000 mls @ 100 mls/hr IV .Q10H [facility] Last Admin: 06/03/17 03:22 Dose: 100 mls/hr Insulin Human Regular (Novolin R) 0 unit SC ACHS [facility] PRN Reason: Protocol Last Admin: 06/03/17 12:59 Dose: Not Given Levothyroxine Sodium (Synthroid) 25 mcg PO DAILY@0630 [facility] Last Admin: 06/03/17 05:45 Dose: 25 mcg Sodium Bicarbonate (Sodium Bicarbonate Tab) 650 mg PO Q6 [facility] Last Admin: 06/03/17 13:36 Dose: 650 mg Physical Exam - Constitutional Appears: Non-toxic, No Acute Distress - Extremities Exam Additional comments: LLE exam: VASC- pedal pulses are palpable, skin temp runs warm to warm (from proximal to distal), cap refill < 4 sec to all digits, no pedal edema NEURO- pedal sensation is grossly intact DERM- there is a hyperkeratotic lesion present plantar-medial aspect of left hallux IPJ, upon debridement with #15 blade there appeared to be 1 cc of purulent discharge noted, ulceration base is mixed fibro-granular with macerated borders noted, neg probe to bone, neg malodor, neg for local or ascending cellulitis ORTHO- tenderness on palpation of ulceration site plantar-medial aspect of hallux IPJ. - Neurological Exam Neurological exam: Alert, CN II-XII Intact - Psychiatric Exam Psychiatric exam: Normal Affect, Normal Mood Results - Vital Signs Recent Vital Signs: Last Vital Signs Temp 98.2 F 06/03/17 08:00 Pulse 98 H 06/03/17 13:35 Resp 20 06/03/17 08:00 BP 138/66 06/03/17 13:35 Pulse Ox 95 06/03/17 08:00 - Labs Result Diagrams: 06/03/17 11:27 06/03/17 11:27 Labs: Laboratory Results - last 24 hr 06/02/17 06/02/17 06/03/17 16:02 20:50 06:34 WBC RBC Hgb Hct MCV MCH MCHC RDW Plt Count MPV Neut % (Auto) Lymph % (Auto) [place] % (Auto) Eos % (Auto) Baso % (Auto) Neut # Lymph # [place] # Eos # Baso # Sodium Potassium Chloride Carbon Dioxide Anion Gap BUN Creatinine Est GFR ( Amer) Est GFR (Non-Af Amer) POC Glucose (mg/dL) 99 132 H 94 Random Glucose Calcium Total Creatine Kinase 06/03/17 06/03/17 06/03/17 11:27 11:27 12:51 WBC 5.3 RBC 3.63 L Hgb 9.9 L Hct 30.2 L MCV 83.3 MCH 27.3 MCHC 32.8 L RDW 14.6 H Plt Count 143 MPV 8.4 Neut % (Auto) 61.4 Lymph % (Auto) 24.0 [place] % (Auto) 7.0 Eos % (Auto) 6.8 H Baso % (Auto) 0.8 Neut # 3.3 Lymph # 1.3 [place] # 0.4 Eos # 0.4 Baso # 0.0 Sodium 139 Potassium 4.7 Chloride 106 Carbon Dioxide 22 Anion Gap 16 BUN 57 H Creatinine 2.6 H Est GFR ( Amer) 29 Est GFR (Non-Af Amer) 24 POC Glucose (mg/dL) 86 Random Glucose 84 Calcium 8.7 Total Creatine Kinase 908 H Assessment & Plan - Assessment and Plan (Free Text) Assessment: 81 yo male patient with full thickness ulceration of left hallux secondary to unknown etiology Plan: Pt S&E at bedside Plan discussed with attending Dr. Edge in detail Chart, labs and vitals reviewed: afebrile, no leukocytosis Left foot x-ray (06/02): large intraosseous cyst noted proximal phalanx of left hallux, diffuse osteopenia, prominent degenerative changes 5th MTPJ and peripheral erosions. Ulceration aseptically debrided with #15 blade, 1cc of purulent drainage expressed. Pt tolerated procedure well without incident Wound cx obtained, will f/u results DSD dressing applied Will follow while pt is in house.
--- NOTE | 2017-06-03 14:11 | CP.PCM.PN ---
Subjective - Date & Time of Evaluation Date of Evaluation: 06/03/17 Time of Evaluation: 14:10 - Subjective Subjective: leg pains Objective - Vital Signs/Intake and Output Vital Signs (last 24 hours): Temp Pulse Resp BP Pulse Ox 98.2 F 98 H 20 138/66 95 06/03/17 08:00 06/03/17 13:35 06/03/17 08:00 06/03/17 13:35 06/03/17 08:00 Intake and Output: 06/03/17 06/03/17 06:59 18:59 Intake Total 100 Output Total 200 Balance -100 - Medications Medications: Current Medications Acetaminophen/Codeine Phosphate (Tylenol/Codeine 300 Mg/30 Mg) 1 ea PO TID PRN PRN Reason: Pain, moderate (4-7) Last Admin: 06/03/17 13:39 Dose: 1 ea Amlodipine Besylate (Norvasc) 10 mg PO DAILY [facility] Last Admin: 06/03/17 10:53 Dose: 10 mg Aspirin (Ecotrin) 81 mg PO DAILY [facility] Last Admin: 06/03/17 10:53 Dose: 81 mg Calcitriol (Rocaltrol) 0.25 mcg PO MWF [facility] Last Admin: 06/03/17 08:23 Dose: 0.25 mcg Clopidogrel Bisulfate (Plavix) 75 mg PO DAILY [facility] Last Admin: 06/03/17 10:53 Dose: 75 mg Colchicine (Colocrys) 0.6 mg PO QOD [facility] Last Admin: 06/02/17 09:18 Dose: 0.6 mg Gabapentin (Neurontin) 100 mg PO BID [facility] Last Admin: 06/03/17 10:53 Dose: 100 mg Hydralazine HCl (Apresoline) 25 mg PO Q8H [facility] Last Admin: 06/03/17 13:37 Dose: 25 mg Sodium Chloride (Sodium Chloride 0.9%) 1,000 mls @ 100 mls/hr IV .Q10H [facility] Last Admin: 06/03/17 03:22 Dose: 100 mls/hr Insulin Human Regular (Novolin R) 0 unit SC ACHS [facility] PRN Reason: Protocol Last Admin: 06/03/17 12:59 Dose: Not Given Levothyroxine Sodium (Synthroid) 25 mcg PO DAILY@0630 [facility] Last Admin: 06/03/17 05:45 Dose: 25 mcg Sodium Bicarbonate (Sodium Bicarbonate Tab) 650 mg PO Q6 [facility] Last Admin: 06/03/17 13:36 Dose: 650 mg - Labs Labs: 06/03/17 11:27 06/03/17 11:27 PT 12.6 SECONDS (9.7-12.2) H 05/27/17 06:00 INR 1.1 05/27/17 06:00 APTT 29 SECONDS (21-34) 05/27/17 06:00 - Constitutional Appears: Chronically Ill - Eye Exam Eye Exam: Normal appearance - ENT Exam ENT Exam: Mucous Membranes Moist - Neck Exam Neck Exam: Normal Inspection - Respiratory Exam Respiratory Exam: Clear to Ausculation Bilateral - Cardiovascular Exam Cardiovascular Exam: REGULAR RHYTHM, Murmur - Extremities Exam Extremities Exam: absent: Pedal Edema - Neurological Exam Neurological Exam: Alert, Oriented x3 Assessment and Plan - Assessment and Plan (Free Text) Assessment: will obtain doppler of legs,podiatry consult.ct getting better.
--- NOTE | 2017-06-03 19:35 | CP.PCM.PN ---
Subjective - Date & Time of Evaluation Date of Evaluation: 06/03/17 Time of Evaluation: 19:34 - Subjective Subjective: pt is seen and examined, follow up consult is dictated #[id number] Objective - Vital Signs/Intake and Output Vital Signs (last 24 hours): Temp Pulse Resp BP Pulse Ox 97.4 F L 112 H 22 139/78 95 06/03/17 17:35 06/03/17 17:35 06/03/17 17:35 06/03/17 17:53 06/03/17 17:35 Intake and Output: 06/03/17 06/04/17 18:59 06:59 Intake Total 1620 Balance 1620 - Medications Medications: Current Medications Acetaminophen/Codeine Phosphate (Tylenol/Codeine 300 Mg/30 Mg) 1 ea PO TID PRN PRN Reason: Pain, moderate (4-7) Last Admin: 06/03/17 18:13 Dose: 1 ea Amlodipine Besylate (Norvasc) 10 mg PO DAILY [facility] Last Admin: 06/03/17 10:53 Dose: 10 mg Aspirin (Ecotrin) 81 mg PO DAILY [facility] Last Admin: 06/03/17 10:53 Dose: 81 mg Calcitriol (Rocaltrol) 0.25 mcg PO MWF [facility] Last Admin: 06/03/17 08:23 Dose: 0.25 mcg Clopidogrel Bisulfate (Plavix) 75 mg PO DAILY [facility] Last Admin: 06/03/17 10:53 Dose: 75 mg Colchicine (Colocrys) 0.6 mg PO QOD [facility] Last Admin: 06/02/17 09:18 Dose: 0.6 mg Gabapentin (Neurontin) 100 mg PO BID [facility] Last Admin: 06/03/17 18:13 Dose: 100 mg Hydralazine HCl (Apresoline) 25 mg PO Q8H [facility] Last Admin: 06/03/17 13:37 Dose: 25 mg Insulin Human Regular (Novolin R) 0 unit SC ACHS [facility] PRN Reason: Protocol Last Admin: 06/03/17 17:15 Dose: Not Given Levothyroxine Sodium (Synthroid) 25 mcg PO DAILY@0630 [facility] Last Admin: 06/03/17 05:45 Dose: 25 mcg Sodium Bicarbonate (Sodium Bicarbonate Tab) 650 mg PO Q6 [facility] Last Admin: 06/03/17 18:13 Dose: 650 mg - Labs Labs: 06/03/17 11:27 09/11/17 11:27 PT 12.6 SECONDS (9.7-12.2) H 05/27/17 06:00 INR 1.1 05/27/17 06:00 APTT 29 SECONDS (21-34) 05/27/17 06:00
--- NOTE | 2017-06-04 00:28 | CON ---
FOLLOW UP RENAL CONSULTATION DATE: LOCATION: Room 557, bed A. REQUESTED BY: Jeffery Thrasher MD REASON FOR FOLLOWUP: Acute renal failure, chronic kidney disease. HISTORY OF PRESENT ILLNESS: Mr. Cunningham is a 81-year-old elderly male with a past medica history significant for hypertension, coronary artery disease, status post CABG, hypothyroidism, gout, chronic kidney disease, was admitted with generalized weakness, hyperkalemia, metabolic acidosis and status post fall with elevated CPK levels and the patient is being treated for rhabdomyolysis with IV hydration. The patient was complaining shortness of breath this morning and IV fluid was discontinued. The patient was given 1 dose of 40 mg IV Lasix. The patient is feeling much better after the Lasix. The patient denies any chest pain or palpitations. Denies any fever, cough, or abdominal pain. No nausea, vomiting, or diarrhea. PHYSICAL EXAMINATION GENERAL: Mr. Cunningham is a 81 years old elderly male, moderately built, moderately nourished, not in distress. VITAL SIGNS: As follows; blood pressure 129/73, pulse 112, respiration 22, temperature 97.4, saturation 95%, height 6 feet 3 inches and weight is 188 pounds. HEENT: Pupils normal, reactive to light and accommodation. Conjunctiva pink. Sclerae anicteric. Tongue is moist. Trachea is midline. CARDIOVASCULAR: [place] at the fifth intercostal space, midclavicular line. S1 and S2 audible. No murmur, no gallop. The patient has mid sternal scar present from the previous CABG. LUNGS: Symmetry on both sides, bilateral breath sounds present. Bilateral basal crackles present. ABDOMEN: Normal in appearance, soft and tympanitic. No guarding. No rigidity. No hepatosplenomegaly. CENTRAL NERVOUS SYSTEM: The patient is alert, awake and oriented x3. Nonfocal neurologic examination. Cranial nerves II through XII grossly intact. Sensory and motor system is within normal limits.. EXTREMITIES: No cyanosis, no clubbing and no edema. 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 LABORATORY DATA: Include as follows; as of 06/03/2017, WBC 5.3, hemoglobin 9.9, hematocrit is 30.2, platelets is 143. Sodium 139, potassium 4.7, chloride 106, CO2 of 22, BUN 57, creatinine 2.6, glucose 84, calcium 8.7, CPK 108. His Accu-Cheks 86 and 94. Chest x-ray report is pending. Consistent with mild vascular congestion. Official report is pending. ASSESSMENT: In summary, Mr. Cunningham is a 81 years old elderly male with history of hypertension, coronary artery disease, hyperlipidemia, hypothyroidism, gout, chronic kidney disease, status post fall with rhabdomyolysis, statu post hyperkalemia, and metabolic acidosis. 1. Rhabdomyolysis. CPK levels improving nicely. 2. Acute onset of congestive heart failure secondary to IV hydration in the setting of chronic kidney disease. 3. Mild anemia. 4. Hypertension. PLAN: Agree with discontinuing IV fluids. Agree with IV Lasix and will start Lasix 40 mg p.o. daily and will also discontinue sodium chloride tablet also. Continue to monitor BMP in a.m. We will also add Epogen 10,000 units subcutaneous x1 dose in a.m. Thank you for allowing me to participate in your patient's care. Hernan Peterson MD
[2017-06-04] MEDS: Levothyroxine 25 MCG TAB PO SCH (06:42)
[2017-06-04] MEDS: (Novolin R) Insulin Human Regular 100 units/ml vial SC SCH ×4 (07:30→21:27)
--- NOTE | 2017-06-04 08:19 | RAD ---
Chest x-ray single frontal view History: Shortness of breath. Comparison: 05/27/2017 Findings: Prominent diffuse increased interstitial lung markings throughout both lungs with prominent consolidative opacities seen within the mid to lower lung zones. Right midlung atelectasis. Biapical pleural thickening. Enlarged ectatic aorta. Status post median sternotomy and CABG. Degenerative changes in the spine and shoulders. Few distended loops of small bowel seen within the upper abdomen. Impression: Prominent diffuse increased interstitial lung markings throughout both lungs with prominent consolidative opacities seen within the mid to lower lung zones. Right midlung atelectasis. Biapical pleural thickening. Enlarged ectatic aorta. Status post median sternotomy and CABG.
--- NOTE | 2017-06-04 09:12 | CP.PCM.PN ---
Subjective - Date & Time of Evaluation Date of Evaluation: 06/04/17 Time of Evaluation: 09:12 - Subjective Subjective: pt is seen and examined, follow up consult is dictated #[id number] Objective - Vital Signs/Intake and Output Vital Signs (last 24 hours): Temp Pulse Resp BP Pulse Ox 97.8 F 99 H 20 152/79 H 98 06/04/17 08:06 06/04/17 08:06 06/04/17 08:06 06/04/17 08:06 06/04/17 08:06 Intake and Output: 06/04/17 06/04/17 06:59 18:59 Output Total 600 Balance -600 - Medications Medications: Current Medications Acetaminophen/Codeine Phosphate (Tylenol/Codeine 300 Mg/30 Mg) 1 ea PO TID PRN PRN Reason: Pain, moderate (4-7) Last Admin: 06/03/17 18:13 Dose: 1 ea Amlodipine Besylate (Norvasc) 10 mg PO DAILY [facility] Last Admin: 06/03/17 10:53 Dose: 10 mg Aspirin (Ecotrin) 81 mg PO DAILY [facility] Last Admin: 06/03/17 10:53 Dose: 81 mg Calcitriol (Rocaltrol) 0.25 mcg PO MWF [facility] Last Admin: 06/03/17 08:23 Dose: 0.25 mcg Clopidogrel Bisulfate (Plavix) 75 mg PO DAILY [facility] Last Admin: 06/03/17 10:53 Dose: 75 mg Colchicine (Colocrys) 0.6 mg PO QOD [facility] Last Admin: 06/02/17 09:18 Dose: 0.6 mg Furosemide (Lasix) 40 mg PO DAILY [facility] Gabapentin (Neurontin) 100 mg PO BID [facility] Last Admin: 06/03/17 18:13 Dose: 100 mg Hydralazine HCl (Apresoline) 25 mg PO Q8H [facility] Last Admin: 06/04/17 05:11 Dose: 25 mg Insulin Human Regular (Novolin R) 0 unit SC ACHS [facility] PRN Reason: Protocol Last Admin: 06/03/17 21:50 Dose: Not Given Levothyroxine Sodium (Synthroid) 25 mcg PO DAILY@0630 [facility] Last Admin: 06/04/17 06:42 Dose: 25 mcg Sodium Bicarbonate (Sodium Bicarbonate Tab) 650 mg PO Q6 [facility] Last Admin: 06/04/17 05:11 Dose: 650 mg - Labs Labs: 06/03/17 11:27 06/03/17 11:27 PT 12.6 SECONDS (9.7-12.2) H 05/27/17 06:00 INR 1.1 05/27/17 06:00 APTT 29 SECONDS (21-34) 05/27/17 06:00
--- NOTE | 2017-06-04 15:28 | VASCLAB ---
PROCEDURE: HISTORY: PVD COMPARISON: None available. TECHNIQUE: Grayscale and duplex Doppler evaluation of the bilateral common femoral, femoral, profunda femoral, popliteal, posterior tibial, anterior tibial and dorsalis pedis arteries was performed. Report prepared by NISHANT Ross, RVT FINDINGS: RIGHT LOWER EXTREMITY: * Common Femoral Artery: Peak Systolic Velocity - 162: Doppler Waveform: Biphasic: Plaque description - Calcific * Profunda Femoral Artery: Peak Systolic Velocity - 315: Doppler Waveform: Biphasic.: Plaque description - Calcific * Femoral Artery o Proximal Segment: Peak Systolic Velocity - 106: Doppler Waveform: Biphasic: Plaque description - Calcific o Middle Segment: Peak Systolic Velocity - 274: Doppler Waveform: Biphasic: Plaque description - Calcific o Distal Segment: Peak Systolic Velocity - 48: Doppler Waveform: Biphasic: Plaque description - Calcific * Popliteal Artery o Proximal Segment: Peak Systolic Velocity - 106: Doppler Waveform: Biphasic: Plaque description - Calcific o Middle Segment: Peak Systolic Velocity - 97: Doppler Waveform: Biphasic: Plaque description - Calcific o Distal Segment: Peak Systolic Velocity - 98: Doppler Waveform: Biphasic: Plaque description - Calcific * Posterior Tibial Artery: Peak Systolic Velocity - 94: Doppler Waveform: Biphasic: Plaque description - Calcific * Anterior Tibial Artery: Peak Systolic Velocity - 0: Doppler Waveform: Absent: Plaque description - Calcific * Dorsalis Pedis Artery: Peak Systolic Velocity - 15: Doppler Waveform: Monophasic: Plaque description - Calcific LEFT LOWER EXTREMITY: * Common Femoral Artery: Peak Systolic Velocity - 169: Doppler Waveform: Biphasic: Plaque description - Calcific * Profunda Femoral Artery: Peak Systolic Velocity - 145: Doppler Waveform: Biphasic: Plaque description - Calcific * Femoral Artery o Proximal Segment: Peak Systolic Velocity - 111: Doppler Waveform: Biphasic: Plaque description - Calcific o Middle Segment: Peak Systolic Velocity - 519: Doppler Waveform: Biphasic: Plaque description - Calcific o Distal Segment: Peak Systolic Velocity - 44: Doppler Waveform: Biphasic: Plaque description - Calcific * Popliteal Artery o Proximal Segment: Peak Systolic Velocity - 26: Doppler Waveform: Biphasic: Plaque description - Calcific o Middle Segment: Peak Systolic Velocity - 101: Doppler Waveform: Biphasic: Plaque description - Calcific o Distal Segment: Peak Systolic Velocity - 48: Doppler Waveform: Biphasic: Plaque description - Calcific * Posterior Tibial Artery: Peak Systolic Velocity - 0: Doppler Waveform: Absent: Plaque description - Calcific * Anterior Tibial Artery: Peak Systolic Velocity - 0: Doppler Waveform: Absent: Plaque description - Calcific * Dorsalis Pedis Artery: Peak Systolic Velocity - 28: Doppler Waveform: Monophasic: Plaque description - Calcific OTHER FINDINGS: None. IMPRESSION: RIGHT: Possible occlusion of the right proximal and mid anterior tibial artery. 50-75% stenosis of the right proximal and mid superficial femoral artery. LEFT: Possible occlusion of the left mid anterior and proximal posterior tibial arteries. Greater than 75% stenosis of the left mid superficial femoral artery.
--- NOTE | 2017-06-04 15:28 | VASCLAB ---
PROCEDURE: Lower Extremity Venous Duplex Exam. HISTORY: DVT PRIORS: No previous venous exam. TECHNIQUE: Bilateral common femoral, femoral, popliteal and posterior tibial, peroneal and great saphenous veins were evaluated. Flow was assessed with color Doppler, compressibility, assessment of phasic flow and augmentation response. Report prepared by Tyrese Ware, NISHANT, RVT FINDINGS: RIGHT: 1. Common Femoral Vein: 1.1. Compressibility - Fully compressible: Thrombus - None : Flow - Phasic: Augmentation -Normal: Reflux - None. 2. Femoral Vein: 2.1. Compressibility - Fully compressible: Thrombus - None : Flow - Phasic: Augmentation -Normal: Reflux - None. 3. Popliteal Vein: 3.1. Compressibility - Fully compressible: Thrombus - None : Flow - Phasic: Augmentation -Normal: Reflux - None. 4. Posterior Tibial Vein: 4.1. Compressibility - Fully compressible: Thrombus - None: Flow - Phasic: Augmentation -Normal: Reflux - None. 5. Peroneal Vein: 5.1. Compressibility - Fully compressible: Thrombus - None: Flow - Phasic: Augmentation -Normal: Reflux - None. 6. Great Saphenous Vein: 6.1. Compressibility - Fully compressible: Thrombus - None: Flow - Phasic: Augmentation - Normal: Reflux - None. LEFT: 1. Common Femoral Vein: 1.1. Compressibility - Fully compressible: Thrombus - None: Flow - Phasic: Augmentation -Normal: Reflux - None. 2. Femoral Vein: 2.1. Compressibility - Fully compressible: Thrombus - None: Flow - Phasic: Augmentation -Normal: Reflux - None. 3. Popliteal Vein: 3.1. Compressibility - Fully compressible: Thrombus - None : Flow - Phasic: Augmentation -Normal: Reflux - None. 4. Posterior Tibial Vein: 4.1. Compressibility - Fully compressible: Thrombus - None: Flow - Phasic: Augmentation -Normal: Reflux - None. 5. Peroneal Vein: 5.1. Compressibility - Fully compressible: Thrombus - None: Flow - Phasic: Augmentation -Normal: Reflux - None. 6. Great Saphenous Vein: 6.1. Compressibility - Fully compressible: Thrombus - None: Flow - Phasic: Augmentation - Normal: Reflux - None. OTHER FINDINGS: Right: None significant. Left: None significant. IMPRESSION: Right: No evidence of deep or superficial vein thrombosis of the right lower extremity. Normal valve function noted of the right side. Left: No evidence of deep or superficial vein thrombosis of the left lower extremity. Normal valve function noted of the left side.
--- NOTE | 2017-06-04 15:41 | CON ---
DATE: 06/04/2017 REQUESTING PHYSICIAN: Dr. Jeffery Thrasher. HISTORY OF PRESENT ILLNESS: This is a 81-year-old black male well known to me from my private practice. He seen in room 557. Alert and oriented x3. Has a history of falling and weakness. The patient had a prior drainage of a left hallux gouty intraosseous lesion about a month ago in the office did well with that. Now, we see him at bedside evidence of prior intervention yesterday by the podiatry residents who drained the copious amount of uric acid drainage from the left hallux. X-ray was seen and the punched out lesion of the medial aspect of the proximal phalanx is noted. Doubt highly that there is any osteomyelitic component due to the fact that there is no significant cellulitis of the foot. RECOMMNEDATIONS: At this time, recommendations were, uric acid lowering medications to be prescribed, local wound care with just dry sterile dressings and will be followed up either at my office or jail facility. Ty Mccormick DPM
[2017-06-04] MEDS: Acetaminophen-Codeine 300/30 mg Tab PO PRN (18:26)
--- NOTE | 2017-06-04 20:11 | CP.PCM.PN ---
Subjective - Date & Time of Evaluation Date of Evaluation: 06/04/17 Time of Evaluation: 20:09 - Subjective Subjective: sob is better.off iv.seen by podiatry. Objective - Vital Signs/Intake and Output Vital Signs (last 24 hours): Temp Pulse Resp BP Pulse Ox 98.4 F 87 20 135/71 97 06/04/17 16:02 06/04/17 16:02 06/04/17 16:02 06/04/17 16:02 06/04/17 16:02 Intake and Output: 06/04/17 06/05/17 18:59 06:59 Intake Total 300 Output Total 500 Balance -200 - Medications Medications: Current Medications Acetaminophen/Codeine Phosphate (Tylenol/Codeine 300 Mg/30 Mg) 1 ea PO TID PRN PRN Reason: Pain, moderate (4-7) Last Admin: 06/04/17 18:26 Dose: 1 ea Amlodipine Besylate (Norvasc) 10 mg PO DAILY [facility] Last Admin: 06/04/17 10:26 Dose: 10 mg Aspirin (Ecotrin) 81 mg PO DAILY [facility] Last Admin: 06/04/17 10:26 Dose: 81 mg Calcitriol (Rocaltrol) 0.25 mcg PO MWF [facility] Last Admin: 06/03/17 08:23 Dose: 0.25 mcg Clopidogrel Bisulfate (Plavix) 75 mg PO DAILY [facility] Last Admin: 06/04/17 10:26 Dose: 75 mg Colchicine (Colocrys) 0.6 mg PO QOD [facility] Last Admin: 06/04/17 10:41 Dose: 0.6 mg Furosemide (Lasix) 40 mg PO DAILY [facility] Last Admin: 06/04/17 10:41 Dose: 40 mg Gabapentin (Neurontin) 100 mg PO BID [facility] Last Admin: 06/04/17 18:26 Dose: 100 mg Heparin Sodium (Porcine) (Heparin) 5,000 units SC Q12 [facility] Hydralazine HCl (Apresoline) 25 mg PO Q8H [facility] Last Admin: 06/04/17 13:01 Dose: 25 mg Insulin Human Regular (Novolin R) 0 unit SC ACHS [facility] PRN Reason: Protocol Last Admin: 06/04/17 16:46 Dose: Not Given Levothyroxine Sodium (Synthroid) 25 mcg PO DAILY@0630 [facility] Last Admin: 06/04/17 06:42 Dose: 25 mcg - Labs Labs: 06/03/17 11:27 06/03/17 11:27 PT 12.6 SECONDS (9.7-12.2) H 05/27/17 06:00 INR 1.1 05/27/17 06:00 APTT 29 SECONDS (21-34) 05/27/17 06:00 - Constitutional Appears: No Acute Distress - Eye Exam Eye Exam: Normal appearance - Neck Exam Neck Exam: Normal Inspection - Respiratory Exam Respiratory Exam: Decreased Breath Sounds - Cardiovascular Exam Cardiovascular Exam: REGULAR RHYTHM - GI/Abdominal Exam GI & Abdominal Exam: Soft - Extremities Exam Extremities Exam: absent: Pedal Edema - Neurological Exam Neurological Exam: Alert Assessment and Plan - Assessment and Plan (Free Text) Assessment: ckd,better. fluid overload,better now. ct current rx.
--- NOTE | 2017-06-04 20:55 | CON ---
FOLLOWUP RENAL CONSULTATION LOCATION: The patient is located in room 557, bed A. REQUESTING BY: Jeffery Thrasher MD HISTORY OF PRESENT ILLNESS: Mr. Cunningham is a 81 years old elderly male with a history of longstanding hypertension, coronary artery disease, status post CABG, hyperlipidemia, hypothyroidism, tophaceous gout, chronic kidney disease was admitted with the chief complaint of weakness, and difficultly with ambulation, status post fall when he tried to get into car and came in with severe hyperkalemia, metabolic acidosis and rhabdomyolysis. The patient is being hydrated. The patient developed shortness of breath yesterday evening and IV fluid was discontinued and the patient was given Lasix 40 mg IV push x1 and hypoxia. The patient felt better after Lasix. Denies any complaints. No chest pain. No palpitations. No fever. No cough. No abdominal pain. No nausea, vomiting, or diarrhea. PHYSICAL EXAMINATION: VITAL SIGNS: This morning as follows; blood pressure 152/79, pulse 99, respiration 20, temperature 97.8, saturation 98%, height 6 feet 3 inches and weight is 185 pounds. GENERAL: Mr. Cunningham is a 81 years old elderly male, moderately built, moderately nourished, not in distress. HEENT: Pupils normal, reactive to light and accommodation. Conjunctivae pink. Sclerae anicteric. Tongue is moist. Trachea is midline. LUNGS: Symmetry on both sides, bilateral breath sounds present. Bilateral basal crackles present. CARDIOVASCULAR: [place] at the fifth intercostal space, midclavicular line. S1 and S2 audible. No murmur, no gallop or rub. The patient has mid sternal scar present from the previous CABG. ABDOMEN: Normal in appearance, soft and tympanitic. No guarding. No hepatosplenomegaly. CENTRAL NERVOUS SYSTEM: The patient is alert, awake and oriented x3. Nonfocal neurologic examination. Cranial nerves II through XII grossly intact. Sensory and motor system is within normal limits. EXTREMITIES: No cyanosis, no clubbing and no edema. The patient has tophi in both upper extremities. MEDICATIONS: His current medications include as follow as; hydralazine 25 mg p.o. q. 8 hours, colchicine 0.6 mg p.o. q. o.d., and aspirin 81 mg daily, Lasix 40 mg p.o. daily, Neurontin 400 mg p.o. b.i.d., amlodipine 10 mg p.o. daily, Novolin R per sliding scale, Plavix 75 mg daily, Rocaltrol 0.25 mcg p.o. 3 times a week, and sodium bicarbonate was discontinued and levothyroxine 25 mcg p.o. daily and Tylenol with codeine one tablet p.o. t.i.d. LABORATORY DATA: No labs available at this time and Accu-Check 81 and 78. ASSESSMENT: In summary, Mr. Cunningham is a 81 years old elderly male with history of chronic kidney disease, gout, coronary artery disease, status post coronary artery bypass graft, tophaceous gout, status post shortness of breath yesterday and hypoxia, status post IV Lasix. 1. Acute renal failure and chronic kidney disease most likely secondary to the acute tubular necrosis secondary to the rhabdomyolysis. Renal function improved back to baseline, creatinine about 2.5 to 2.7. 2. Rhabdomyolysis. CPK levels are improving. 3. Mild anemia. 4. Tophaceous gout. 5. Rule out congestive heart failure secondary to IV fluids. The patient is off IV fluids and started on Lasix last night. Continue gentle diuresis. Continue to monitor BMP. Sodium bicarbonate was discontinued. We will follow with you. Chest x-ray as of 06/03/2017 prominent diffuse increase interstitial markings throughout the both lungs with prominent consolidative opacities seen within the mid to lower lung zones, right middle lung atelectasis and few distended loops of small bowel seen within the upper abdomen. Enlarged status post median sternotomy and coronary artery bypass graft. Thank you for allowing me to participate in your patient's care and followup labs today. Hernan Peterson MD
[2017-06-05] MEDS: Levothyroxine 25 MCG TAB PO SCH (05:50)
[2017-06-05] MEDS: (Novolin R) Insulin Human Regular 100 units/ml vial SC SCH ×4 (07:44→21:46)
[2017-06-05 07:52] LABS: BASO # 0.1 K/uL (0.0-0.2); EOS # 0.6 K/uL (0.0-0.7); EOS % 10.2 % (0.0-4.0); HEMATOCRIT 30.2 % (35.0-51.0); LYMPH # 1.3 K/uL (1.0-4.3); LYMPH % 21.5 % (20.0-40.0); MEAN CELL VOLUME 84.4 fL (80.0-94.0); MEAN CORPUSCULAR HEMOGLOBIN 27.8 pg (27.0-31.0); MEAN CORPUSCULAR HGB CONC 32.9 g/dL (33.0-37.0); MEAN PLATELET VOLUME 9.4 fL (7.2-11.7); MONO # 0.4 K/uL (0.0-0.8); MONO % 6.2 % (0.0-10.0); RED CELL DISTRIBUTION WIDTH 14.7 % (11.5-14.5); WHITE BLOOD COUNT 6.2 K/uL (4.8-10.8)
[2017-06-05 08:36] LABS: CALCIUM 8.7 mg/dl (8.6-10.4)
--- NOTE | 2017-06-05 09:25 | CP.PCM.PN ---
Subjective - Date & Time of Evaluation Date of Evaluation: 06/05/17 Time of Evaluation: 09:30 - Subjective Subjective: Podiatry Progress Note- Dr. Edge: 81 yo male patient seen at bedside this morning. Seen resting in bed comfortably at time of visit. Does complain of some slight intermittent pain to the left hallux but says pain has improved. Denies f/n/v/c/sob/cp at this time. Objective - Vital Signs/Intake and Output Vital Signs (last 24 hours): Temp Pulse Resp BP Pulse Ox 97.5 F L 89 18 138/74 100 06/05/17 08:52 06/05/17 08:52 06/05/17 08:52 06/05/17 08:52 06/05/17 08:52 Intake and Output: 06/05/17 06/05/17 06:59 18:59 Output Total 150 Balance -150 - Medications Medications: Current Medications Acetaminophen/Codeine Phosphate (Tylenol/Codeine 300 Mg/30 Mg) 1 ea PO TID PRN PRN Reason: Pain, moderate (4-7) Last Admin: 06/04/17 18:26 Dose: 1 ea Amlodipine Besylate (Norvasc) 10 mg PO DAILY [facility] Last Admin: 06/04/17 10:26 Dose: 10 mg Aspirin (Ecotrin) 81 mg PO DAILY [facility] Last Admin: 06/04/17 10:26 Dose: 81 mg Calcitriol (Rocaltrol) 0.25 mcg PO MWF [facility] Last Admin: 06/03/17 08:23 Dose: 0.25 mcg Clopidogrel Bisulfate (Plavix) 75 mg PO DAILY [facility] Last Admin: 06/04/17 10:26 Dose: 75 mg Colchicine (Colocrys) 0.6 mg PO QOD [facility] Last Admin: 06/04/17 10:41 Dose: 0.6 mg Furosemide (Lasix) 40 mg PO DAILY [facility] Last Admin: 06/04/17 10:41 Dose: 40 mg Gabapentin (Neurontin) 100 mg PO BID [facility] Last Admin: 06/04/17 18:26 Dose: 100 mg Heparin Sodium (Porcine) (Heparin) 5,000 units SC Q12 [facility] Last Admin: 06/04/17 21:28 Dose: 5,000 units Hydralazine HCl (Apresoline) 25 mg PO Q8H [facility] Last Admin: 06/05/17 05:50 Dose: 25 mg Insulin Human Regular (Novolin R) 0 unit SC ACHS [facility] PRN Reason: Protocol Last Admin: 06/05/17 07:44 Dose: Not Given Levothyroxine Sodium (Synthroid) 25 mcg PO DAILY@0630 [facility] Last Admin: 06/05/17 05:50 Dose: 25 mcg - Labs Labs: 06/05/17 07:35 06/05/17 07:35 PT 12.6 SECONDS (9.7-12.2) H 05/27/17 06:00 INR 1.1 05/27/17 06:00 APTT 29 SECONDS (21-34) 05/27/17 06:00 - Constitutional Appears: Non-toxic, No Acute Distress - Extremities Exam Additional comments: LLE exam: dressing appears c/d/i no drainage VASC- pedal pulses are palpable, skin temp runs warm to warm (from proximal to distal), cap refill < 4 sec to all digits, no pedal edema NEURO- pedal sensation is grossly intact DERM- superficial ulceration noted to medial aspect of left hallux IPJ, wound base is fibro-granular with macerated borders noted, neg probe to bone, neg malodor, neg for local or ascending cellulitis, neg for purulence or any drainage ORTHO- tenderness on palpation of ulceration site plantar-medial aspect of hallux IPJ. - Neurological Exam Neurological Exam: Alert, Awake - Psychiatric Exam Psychiatric exam: Normal Affect, Normal Mood Assessment and Plan - Assessment and Plan (Free Text) Assessment: 81 yo male with tophaceous ulceration of left hallux 2/2 acute gout attack Plan: Pt S&E at bedside Plan discussed with attending Dr. Edge CHart labs and vitals reviewed: afebrile, WBC wnl Receiving colcrys QOD for gout attack Wound cx: + staph aureus (likely surface contaminant- no signs of infection) Dressing applied with DSD left foot Stable per podiatry, to f/u with Dr. Edge as outpatient Will follow
--- NOTE | 2017-06-05 12:51 | CP.PCM.PN ---
Subjective - Date & Time of Evaluation Date of Evaluation: 06/05/17 Time of Evaluation: 12:50 - Subjective Subjective: weak.await wound culture. Objective - Vital Signs/Intake and Output Vital Signs (last 24 hours): Temp Pulse Resp BP Pulse Ox 97.5 F L 89 18 138/74 100 06/05/17 08:52 06/05/17 08:52 06/05/17 08:52 06/05/17 09:37 06/05/17 08:52 Intake and Output: 06/05/17 06/05/17 06:59 18:59 Output Total 150 Balance -150 - Medications Medications: Current Medications Acetaminophen/Codeine Phosphate (Tylenol/Codeine 300 Mg/30 Mg) 1 ea PO TID PRN PRN Reason: Pain, moderate (4-7) Last Admin: 06/04/17 18:26 Dose: 1 ea Amlodipine Besylate (Norvasc) 10 mg PO DAILY [facility] Last Admin: 06/05/17 09:38 Dose: 10 mg Aspirin (Ecotrin) 81 mg PO DAILY [facility] Last Admin: 06/05/17 09:36 Dose: 81 mg Calcitriol (Rocaltrol) 0.25 mcg PO MWF [facility] Last Admin: 06/05/17 09:20 Dose: 0.25 mcg Clopidogrel Bisulfate (Plavix) 75 mg PO DAILY [facility] Last Admin: 06/05/17 09:36 Dose: 75 mg Colchicine (Colocrys) 0.6 mg PO QOD [facility] Last Admin: 06/04/17 10:41 Dose: 0.6 mg Furosemide (Lasix) 40 mg PO DAILY [facility] Last Admin: 06/05/17 09:37 Dose: 40 mg Gabapentin (Neurontin) 100 mg PO BID [facility] Last Admin: 06/05/17 09:36 Dose: 100 mg Heparin Sodium (Porcine) (Heparin) 5,000 units SC Q12 [facility] Last Admin: 06/05/17 09:37 Dose: 5,000 units Hydralazine HCl (Apresoline) 25 mg PO Q8H [facility] Last Admin: 06/05/17 05:50 Dose: 25 mg Insulin Human Regular (Novolin R) 0 unit SC ACHS [facility] PRN Reason: Protocol Last Admin: 06/05/17 12:06 Dose: Not Given Levothyroxine Sodium (Synthroid) 25 mcg PO DAILY@0630 [facility] Last Admin: 06/05/17 05:50 Dose: 25 mcg - Labs Labs: 06/05/17 07:35 06/05/17 07:35 PT 12.6 SECONDS (9.7-12.2) H 05/27/17 06:00 INR 1.1 05/27/17 06:00 APTT 29 SECONDS (21-34) 05/27/17 06:00 - Constitutional Appears: No Acute Distress, Chronically Ill - Eye Exam Eye Exam: Normal appearance - Neck Exam Neck Exam: Normal Inspection - Respiratory Exam Respiratory Exam: Clear to Ausculation Bilateral - Cardiovascular Exam Cardiovascular Exam: REGULAR RHYTHM, Murmur - GI/Abdominal Exam GI & Abdominal Exam: Soft - Extremities Exam Extremities Exam: absent: Pedal Edema - Neurological Exam Neurological Exam: Alert, Oriented x3 Assessment and Plan - Assessment and Plan (Free Text) Assessment: await culture.cr noted.will d/c am
[2017-06-05 15:36] VITALS: RESP 20
[2017-06-05] MEDS: Clindamycin 300 MG in Sodium Chloride 0.9% 50 ML IVPB SCH (21:38)
[2017-06-06] MEDS: Levothyroxine 25 MCG TAB PO SCH (05:42)
[2017-06-06] MEDS: (Novolin R) Insulin Human Regular 100 units/ml vial SC SCH ×3 (07:38→17:19)
--- NOTE | 2017-06-06 08:30 | CP.PCM.PN ---
Subjective - Date & Time of Evaluation Date of Evaluation: 06/06/17 Time of Evaluation: 08:29 - Subjective Subjective: pt is seen and examined, follow up consult is dictated #[id number] renal function is stable rt big toe infection , c/w clinda as per Dr. Thrasher d/c lasix Objective - Vital Signs/Intake and Output Vital Signs (last 24 hours): Temp Pulse Resp BP Pulse Ox 97.9 F 87 20 146/71 99 06/06/17 08:00 06/06/17 08:00 06/06/17 08:00 06/06/17 08:00 06/06/17 08:00 Intake and Output: 06/06/17 06/06/17 06:59 18:59 Intake Total 350 Output Total 460 Balance -110 - Medications Medications: Current Medications Acetaminophen/Codeine Phosphate (Tylenol/Codeine 300 Mg/30 Mg) 1 ea PO TID PRN PRN Reason: Pain, moderate (4-7) Last Admin: 06/04/17 18:26 Dose: 1 ea Amlodipine Besylate (Norvasc) 10 mg PO DAILY [facility] Last Admin: 06/05/17 09:38 Dose: 10 mg Aspirin (Ecotrin) 81 mg PO DAILY [facility] Last Admin: 06/05/17 09:36 Dose: 81 mg Calcitriol (Rocaltrol) 0.25 mcg PO MWF [facility] Last Admin: 06/05/17 09:20 Dose: 0.25 mcg Clopidogrel Bisulfate (Plavix) 75 mg PO DAILY [facility] Last Admin: 06/05/17 09:36 Dose: 75 mg Colchicine (Colocrys) 0.6 mg PO QOD [facility] Last Admin: 06/04/17 10:41 Dose: 0.6 mg Furosemide (Lasix) 40 mg PO DAILY [facility] Last Admin: 06/05/17 09:37 Dose: 40 mg Gabapentin (Neurontin) 100 mg PO BID [facility] Last Admin: 06/05/17 17:42 Dose: 100 mg Heparin Sodium (Porcine) (Heparin) 5,000 units SC Q12 [facility] Last Admin: 06/05/17 21:39 Dose: 5,000 units Hydralazine HCl (Apresoline) 25 mg PO Q8H [facility] Last Admin: 06/06/17 05:41 Dose: 25 mg Clindamycin Phosphate 300 mg/ (Sodium Chloride) 52 mls @ 104 mls/hr IVPB Q12 [facility] Last Admin: 06/05/17 21:38 Dose: 104 mls/hr Insulin Human Regular (Novolin R) 0 unit SC ACHS [facility] PRN Reason: Protocol Last Admin: 06/06/17 07:38 Dose: Not Given Levothyroxine Sodium (Synthroid) 25 mcg PO DAILY@0630 [facility] Last Admin: 06/06/17 05:42 Dose: 25 mcg - Labs Labs: 06/05/17 07:35 06/05/17 07:35 PT 12.6 SECONDS (9.7-12.2) H 05/27/17 06:00 INR 1.1 05/27/17 06:00 APTT 29 SECONDS (21-34) 05/27/17 06:00
[2017-06-06] MEDS: Clindamycin 300 MG in Sodium Chloride 0.9% 50 ML IVPB SCH (10:34)
[2017-06-06 12:19] LABS: CALCIUM 8.6 mg/dl (8.6-10.4)
--- NOTE | 2017-06-06 13:45 | CARD ---
APPROVED REPORT EKG Measurement Heart [id number] <Conclusion> Sinus tachycardia Possible Left atrial enlargement Nonspecific intraventricular conduction delay Nonspecific ST abnormality Abnormal ECG
[2017-06-06 15:35] VITALS: BP 138/71; PULSE 86; TEMP 98; O2SAT 98
--- NOTE | 2017-06-07 03:49 | DS ---
HISTORY OF PRESENT ILLNESS: This is a 81-year-old male with a history of hypertension, chronic kidney disease and CABG, was brought in with worsening of the renal failure. He was dehydrated. Nephrology followup was done with Dr. Peterson. The patient had seen and followed by him in the past. His creatinine was 4.5. With IV hydration and careful management, creatinine has come back to 2.5-3, which is his baseline. He also has a peripheral arterial disease and a small ulcer on the left toe, which was clean, seen by Dr. Mccormick. He is currently on clindamycin for staph. His vital signs are stable and will be transferred to rehab, [facility], under Dr. Daniel Coyle. MEDICATIONS AT THE TIME OF DISCHARGE: Include hydralazine 25 mg p.o. 3 times day, clindamycin 300 mg IV twice a day, colchicine 0.6 mg every other day, aspirin 81 mg, Lasix 40 mg p.o., Neurontin 100 mg twice a day, Norvasc 10 mg one a day, Plavix 75 mg one a day and Synthroid 25 mcg once a day. He will continue with IV antibiotics for 7 days. Local wound care will be taken care of. He will see me back after discharge from [facility] in about a weeks' time and he will follow with Dr. Peterson. FINAL DIAGNOSES: Dehydration, acute renal failure, coronary artery disease, coronary artery bypass graft, hypertension, peripheral arterial disease and ulcer on the toe, sepsis and cellulitis in the left foot. Jeffery Thrasher MD
--- NOTE | 2017-06-07 08:43 | PN ---
DATE: LOCATION: The patient is located in room #557, bed #A. REQUESTING BY: Jeffery Thrasher MD REASON FOR FOLLOWUP: Acute renal failure, chronic kidney disease, rhabdomyolysis. SUBJECTIVE: The patient is a 81-year-old elderly male with a past medical history significant for longstanding hypertension; coronary artery disease, status post CABG; gout; chronic kidney disease; history of hyperkalemia, was admitted with generalized weakness and status post fall and found to have elevated CPK levels, increase in BUN and creatinine and hyperkaliemia, metabolic acidosis. The patient is being treated for rhabdomyolysis with IV dehydration. The patient went into CHF on Saturday and his IV fluids was discontinued and started on Lasix. The patient is feeling much better, not in acute distress. Denies any headache or dizziness. Denies any chest pain or palpitations. The patient has complains of pain in the left big toe and has a small open wound on the plantar aspect. No fever, no cough. PHYSICAL EXAMINATION VITAL SIGNS: As follows; blood pressure 146/71, pulse 78, respirations are 20, temperature 98, saturation 98%, height 6 feet 3 inches and weight is 185 pounds. GENERAL: The patient is a 81 years old, elderly, male, moderately built, moderately nourished, not in acute distress. HEENT: Pupils normal, reactive to light and accommodation. Conjunctivae pink. Sclerae anicteric. Tongue is moist. Trachea is midline. LUNGS: Symmetric on both sides, bilateral breath sounds present. Clear to auscultation. CARDIOVASCULAR: fifth intercostal space, midclavicular line. S1 and S2 audible. No murmur, no gallop. ABDOMEN: Normal in appearance, soft and tympanitic. No guarding. No rigidity. No hepatosplenomegaly. CENTRAL NERVOUS SYSTEM: The patient is alert, awake and oriented x3. Nonfocal neurologic examination. Cranial nerves II through XII grossly intact. Sensory and motor system is within normal limits. EXTREMITIES: No cyanosis, no clubbing and no edema. The patient has slight swelling of the left big toe and small ulcer on the plantar aspect. The patient has a dressing to the left big toe. MEDICATIONS: His current medications include as follows, calcitriol 0.25 mcg p.o. 3 times a week, colchicine 0.6 mg p.o. every other day, hydralazine 25 mg p.o. q. 8 hours, amlodipine 10 mg daily, levothyroxine 25 mcg daily, gabapentin 100 mg p.o. b.i.d., Lasix 40 mg p.o. daily, Plavix 75 mg p.o. daily, clindamycin 300 mg IV q. 12 hours, aspirin 81 mg daily and Tylenol With Codeine one tablet p.o. t.i.d. p.r.n. LABORATORY DATA: Include as follows, as of 06/05/2017, WBC 6, hemoglobin 10, hematocrit is 40.2, platelets is 185. Chem-7 as of 06/06/2017, sodium 136, potassium is 5, chloride 103, CO2 of 22, BUN 72, creatinine 2.9, random glucose 87, calcium 8.6 and CPK 419. ASSESSMENT: In summary, the patient is a 81 years old, elderly, male with a history of hypertension; gout; coronary artery disease, status post CABG; chronic kidney disease, was admitted with worsening renal function, rhabdomyolysis, hyperkalemia and metabolic acidosis. 1. Acute renal failure and chronic kidney disease, stage IV, renal function improved with . 2. Hypertension, blood pressure is stable, continue hydralazine and Norvasc. 3. Left big toe infection, positive for methicillin-sensitive Staphylococcus aureus, continue clindamycin as per Dr. Jeffery Thrasher. 4. Status post rhabdomyolysis and the CPK levels are almost normal. Continue his current medication and consider to discontinue Lasix. We will follow with you. Thank you for allowing me to participate in your patient's care and for possible discharge to subacute rehab today. Hernan Peterson MD
== END 2017-06-06 20:00 | DRG 683 ==
LOC: C.ER 05:22 → C.9E 07:29 → C.6T 08:15 → C.9E 08:38 → C.5T 23:30 → C.5S 05-29 09:10
PROVIDERS: ADMIT Internal Medicine Cardiovascular Disease; ATTEND Internal Medicine Cardiovascular Disease
PROC: 0HDNXZZ Extraction of Left Foot Skin, External Approach (ICD-10-PCS; principal; 2017-06-03)
DX: N17.0 Acute kidney failure with tubular necrosis (principal); E87.2 Acidosis; M62.82 Rhabdomyolysis; I13.0 Hypertensive heart and chronic kidney disease with heart failure and stage 1 through stage 4 chronic kidney disease, or unspecified chronic kidney disease; L03.116 Cellulitis of left lower limb; I50.9 Heart failure, unspecified; E11.22 Type 2 diabetes mellitus with diabetic chronic kidney disease; W19.XXXA Unspecified fall, initial encounter; E87.5 Hyperkalemia; N18.4 Chronic kidney disease, stage 4 (severe); F17.210 Nicotine dependence, cigarettes, uncomplicated; F10.10 Alcohol abuse, uncomplicated; E86.0 Dehydration; L97.529 Non-pressure chronic ulcer of other part of left foot with unspecified severity; I73.9 Peripheral vascular disease, unspecified; I25.10 Atherosclerotic heart disease of native coronary artery without angina pectoris; N11.8 Other chronic tubulo-interstitial nephritis; M1A.9XX1 Chronic gout, unspecified, with tophus (tophi); D64.9 Anemia, unspecified; E03.9 Hypothyroidism, unspecified; E11.621 Type 2 diabetes mellitus with foot ulcer; E78.5 Hyperlipidemia, unspecified; K76.0 Fatty (change of) liver, not elsewhere classified; K80.20 Calculus of gallbladder without cholecystitis without obstruction; Z95.1 Presence of aortocoronary bypass graft; Z79.82 Long term (current) use of aspirin

== ENCOUNTER 2017-07-24 10:45 | Inpatient (IN) | payer MEDICARE ==
--- NOTE | 2017-07-24 11:16 | C.PDOC ---
History Of Present Illness Patient is an 82 y/o M with hx of HTN, CKD, obstructive uropathy requring wise catheter, presenting with lethargy and fever from senior living. "Forgetful" at baseline per senior living. History limited by dementia. PMD: Dr. Coyle Time Seen by Provider: 07/24/17 10:52 Chief Complaint (Nursing): Fever Past Medical History Vital Signs: Last Vital Signs Temp 100.9 F H 07/24/17 15:40 Pulse 118 H 07/24/17 15:20 Resp 18 07/24/17 15:20 BP 144/68 07/24/17 15:20 Pulse Ox 97 07/24/17 15:20 - Medical History PMH: Arthritis (OA, Gout), HTN - [facility] Procedures EXTRACTION OF LEFT FOOT SKIN, EXTERNAL APPROACH (05/27/17) Family History: States: Unknown Family Hx - Social History Hx Alcohol Use: No Hx Substance Use: No - Immunization History Hx Tetanus Toxoid Vaccination: No Hx Influenza Vaccination: Yes (06/28/2017) Hx Pneumococcal Vaccination: No Review Of Systems Review Of Systems: ROS cannot be obtained secondary to pt's inabilty to answer questions. Physical Exam - Physical Exam Appears: Well, Non-toxic, No Acute Distress Skin: Other (decubitus ulcer) Head: Atraumatic, Normacephalic Eye(s): bilateral: Normal Inspection, PERRL, EOMI Neck: Normal, Supple Cardiovascular: Other (tachycardic) Respiratory: Normal Breath Sounds Gastrointestinal/Abdominal: Normal Exam, Soft, No Tenderness Back: Other (moving extremities x 4) Extremity: Normal ROM Neurological/Psych: Other (alert, oriented x 1) ED Course And Treatment - Laboratory Results Result Diagrams: 07/24/17 11:15 07/24/17 11:15 O2 Sat by Pulse Oximetry: 95 Medical Decision Making Medical Decision Making: EKG shows sinus tachycardia at 109bpm with non-specific st changes, grossly unchanged form prior on 06/06/17. Febrile and tachycardic on arrival. Already given tylenol at senior living. IVF infusing. Wise was replaced. Cxray negative. Influenza negative. Lactate WNL. Labs significant for worsening renal function. UA positive and antibiotics ordered. WBC nildly elevated. Trop mildly elevated, but prior hx of. Spoke to Dr. Jonna and will admit. Disposition - Disposition Disposition: HOSPITALIZED Disposition Time: 12:36 Condition: FAIR - Clinical Impression Clinical Impression: UTI (urinary tract infection), Fever, Leukocytosis
[2017-07-24 11:21] LABS: BASO # 0.1 K/uL (0.0-0.2); BASO % 0.5 % (0.0-2.0); EOS % 0.1 % (0.0-4.0); HEMATOCRIT 31.4 % (35.0-51.0); LYMPH # 1.6 K/uL (1.0-4.3); MEAN CORPUSCULAR HEMOGLOBIN 27.3 pg (27.0-31.0); MEAN CORPUSCULAR HGB CONC 31.7 g/dL (33.0-37.0); MEAN PLATELET VOLUME 7.8 fL (7.2-11.7); MONO # 0.8 K/uL (0.0-0.8); MONO % 6.5 % (0.0-10.0); RED CELL DISTRIBUTION WIDTH 16.9 % (11.5-14.5)
[2017-07-24] MEDS ORDERED: Sodium Chloride 0.9% 500 ML IV ONE ×3 (11:24→12:36)
[2017-07-24 11:33] LABS: VENOUS BLOOD GAS BASE EXCESS -3.6 mmol/L (0.0-2.0); VENOUS BLOOD GAS PCO2 38 mmHg (40-60); VENOUS BLOOD PH 7.36 (7.32-7.43)
[2017-07-24 11:38] LABS: POTASSIUM 4.5 mmol/L (3.6-5.2)
[2017-07-24 11:40] LABS: ALB/GLOB RATIO 0.8 (1.0-2.1); BILIRUBIN,TOTAL 1.1 mg/dL (0.2-1.3); TOTAL PROTEIN 8.5 g/dL (6.3-8.3)
[2017-07-24 11:41] LABS: CALCIUM 9.2 mg/dl (8.6-10.4); MAGNESIUM 2.1 mg/dL (1.6-2.3)
[2017-07-24] MEDS ORDERED: Vancomycin 1 gm/NS 200 ml 1 GM/200 ML BAG IVPB STA (11:58)
[2017-07-24] MEDS ORDERED: Piperacillin/Tazobact 3.375 gm 100 ML IVPB STA (11:58)
[2017-07-24 12:11] LABS: RBC URINE 5 /hpf (0-3); URINE BACTERIA RARE (<OCC); URINE BILIRUBIN NEGATIVE (NEGATIVE); URINE BLOOD 2+ (NEGATIVE); URINE COLOR Amber (YELLOW); URINE GLUCOSE (UA) NORMAL (Normal); URINE KETONE NEGATIVE (NEGATIVE); URINE LEUKOCYTE ESTERASE 2+ Leu/uL (Negative); URINE PROTEIN 1+ mg/dL (NEGATIVE); WBC URINE 14 /hpf (0-5)
[2017-07-24 12:39] LABS: TROPONIN I 0.166 ng/mL (0.00-0.120)
[2017-07-24] MEDS ORDERED: Piperacill/Tazo 3.375gm in Dex 3.375 GM/50 ML BAG IVPB ONE (15:00)
--- NOTE | 2017-07-24 16:09 | RAD ---
HISTORY: fever COMPARISON: None available. TECHNIQUE: Chest, one view. FINDINGS: Examination limited by habitus and patient obliquity. LUNGS: Biapical pleural thickening. No focal consolidation. Scattered probable calcified granulomas. Please note that chest x-ray has limited sensitivity for the detection of pulmonary masses. PLEURA: No significant pleural effusion identified. No definite pneumothorax . CARDIOVASCULAR: Heart size appears within normal limits. Ectatic aorta. OSSEOUS STRUCTURES: Osseous demineralization. Degenerative changes of the spine and shoulders. VISUALIZED UPPER ABDOMEN: Unremarkable. OTHER FINDINGS: None. IMPRESSION: No acute findings. See above.
[2017-07-24] MEDS ORDERED: Sodium Chloride 0.9% 1,000 ML IV SCH (16:45)
--- NOTE | 2017-07-24 18:14 | CP.PCM.CON ---
History of Present Illness - History of Present Illness History of Present Illness: pt is seen and examined, full consult is dictated#[id number] Past Patient History - Past Medical History & Family History Past Medical History?: Yes - Past Social History Smoking Status: Former Smoker - CARDIAC Hx Hypertension: Yes - RENAL Other/Comment: Chronic Kidney Disease. Retention of Urine - ENDOCRINE/METABOLIC Hx Diabetes Mellitus Type 2: Yes - INTEGUMENTARY Other/Comment: Pressure Ulcer - MUSCULOSKELETAL/RHEUMATOLOGICAL Hx Arthritis: Yes (OA, Gout) - GENITOURINARY/GYNECOLOGICAL Hx Genitourinary Disorders: Yes Other/Comment: Obstructive and Reflux Uropathy - PSYCHIATRIC Hx Substance Use: No - SURGICAL HISTORY Hx Surgeries: Yes Other/Comment: "Quadruple bypass" - ANESTHESIA Hx Anesthesia: Yes Hx Anesthesia Reactions: No Hx Malignant Hyperthermia: No Meds Allergies/Adverse Reactions: Allergies Allergy/AdvReac Type Severity Reaction Status Date / Time No Known Allergies Allergy Verified 05/27/17 05:37 - Medications Medications: Current Medications Acetaminophen (Tylenol 325mg Tab) 650 mg PO Q6 PRN PRN Reason: Fever >100.4 F Amlodipine Besylate (Norvasc) 10 mg PO DAILY [facility] Aspirin (Ecotrin) 81 mg PO DAILY [facility] Clopidogrel Bisulfate (Plavix) 75 mg PO DAILY [facility] Famotidine (Pepcid) 20 mg IVP DAILY [facility] Finasteride (Proscar) 5 mg PO DAILY [facility] Heparin Sodium (Porcine) (Heparin) 5,000 units SC Q8 [facility] Hydralazine HCl (Apresoline) 25 mg PO BID [facility] Sodium Chloride (Sodium Chloride 0.9%) 1,000 mls @ 100 mls/hr IV .Q10H [facility] Last Admin: 07/24/17 17:38 Dose: 100 mls/hr Ceftriaxone Sodium 1 gm/ (Sodium Chloride) 100 mls @ 100 mls/hr IVPB DAILY [facility] Levothyroxine Sodium (Synthroid) 25 mcg PO DAILY@0630 [facility] Rosuvastatin Calcium (Crestor) 10 mg PO HS DAWIT Tamsulosin HCl (Flomax) 0.4 mg PO DAILY [facility] Results - Vital Signs Recent Vital Signs: Last Vital Signs Temp 98.4 F 07/24/17 16:46 Pulse 107 H 07/24/17 17:47 Resp 15 07/24/17 16:46 BP 135/68 07/24/17 16:46 Pulse Ox 99 07/24/17 16:46 - Labs Result Diagrams: 07/24/17 11:15 07/24/17 11:15 Labs: Laboratory Results - last 24 hr 07/24/17 07/24/17 07/24/17 11:15 11:15 11:26 WBC 12.0 H D RBC 3.65 L Hgb 9.9 L Hct 31.4 L MCV 86.0 MCH 27.3 MCHC 31.7 L RDW 16.9 H Plt Count 304 D MPV 7.8 Neut % (Auto) 79.9 H Lymph % (Auto) 13.0 L Glades % (Auto) 6.5 Eos % (Auto) 0.1 Baso % (Auto) 0.5 Neut # 9.5 H Lymph # 1.6 Glades # 0.8 Eos # 0.0 Baso # 0.1 pO2 45 VBG pH 7.36 VBG pCO2 38 L VBG HCO3 21.6 VBG Total CO2 22.7 VBG O2 Sat (Calc) 83.1 H VBG Base Excess -3.6 L VBG Potassium 4.1 Glucose 131 H Lactate 1.8 Sodium 138 144.0 Potassium 4.5 Chloride 101 109.0 H Carbon Dioxide 23 Anion Gap 19 BUN 89 H Creatinine 3.7 H Est GFR ( Amer) 19 Est GFR (Non-Af Amer) 16 POC Glucose (mg/dL) Random Glucose 129 H Calcium 9.2 Phosphorus 7.0 H Magnesium 2.1 Total Bilirubin 1.1 AST 19 ALT 34 Alkaline Phosphatase 81 Total Creatine Kinase 67 CK-MB (Mass) 1.62 Troponin I 0.1660 H* Total Protein 8.5 H Albumin 3.7 Globulin 4.8 H Albumin/Globulin Ratio 0.8 L Lipase 45 Venous Blood Potassium 4.1 Urine Color Urine Clarity Urine pH Ur Specific [place] Urine Protein Urine Glucose (UA) Urine Ketones Urine Blood Urine Nitrate Urine Bilirubin Urine Urobilinogen Ur Leukocyte Esterase Urine WBC (Auto) Urine RBC (Auto) Ur Squamous Epith Cells Urine Bacteria Influenza Typ A,B (EIA) 07/24/17 07/24/17 07/24/17 11:54 12:02 17:59 WBC RBC Hgb Hct MCV MCH MCHC RDW Plt Count MPV Neut % (Auto) Lymph % (Auto) Glades % (Auto) Eos % (Auto) Baso % (Auto) Neut # Lymph # [place] # Eos # Baso # pO2 VBG pH VBG pCO2 VBG HCO3 VBG Total CO2 VBG O2 Sat (Calc) VBG Base Excess VBG Potassium Glucose Lactate Sodium Potassium Chloride Carbon Dioxide Anion Gap BUN Creatinine Est GFR ( Amer) Est GFR (Non-Af Amer) POC Glucose (mg/dL) 130 H Random Glucose Calcium Phosphorus Magnesium Total Bilirubin AST ALT Alkaline Phosphatase Total Creatine Kinase CK-MB (Mass) Troponin I Total Protein Albumin Globulin Albumin/Globulin Ratio Lipase Venous Blood Potassium Urine Color Rosemarie Urine Clarity Hazy Urine pH 5.0 Ur Specific [place] 1.015 Urine Protein 1+ H Urine Glucose (UA) Normal Urine Ketones Negative Urine Blood 2+ H Urine Nitrate Negative Urine Bilirubin Negative Urine Urobilinogen 4.0 Ur Leukocyte Esterase 2+ H Urine WBC (Auto) 14 H Urine RBC (Auto) 5 H Ur Squamous Epith Cells 1 Urine Bacteria Rare Influenza Typ A,B (EIA) Negative for flu a/b
[2017-07-24] MEDS: Dextrose 5%/0.9% NS 1,000 ML IV SCH (19:10)
[2017-07-24 21:57] LABS: IRON 19 ug/dL (49-181)
--- NOTE | 2017-07-24 22:14 | CP.PCM.HP ---
History of Present Illness - History of Present Illness History of Present Illness: Patient is an 82 y/o M with hx of HTN, CKD, obstructive uropathy requring wise catheter, presenting with lethargy and fever from prison. "Forgetful" at baseline per prison. History limited by dementia. Present on Admission - Present on Admission Any Indicators Present on Admission: Yes Past Patient History - Past Medical History & Family History Past Medical History?: Yes - Past Social History Smoking Status: Former Smoker - CARDIAC Hx Hypertension: Yes - PULMONARY Hx Respiratory Disorders: No - NEUROLOGICAL Hx Neurological Disorder: No - HEENT Hx HEENT Problems: No - RENAL Other/Comment: Chronic Kidney Disease. Retention of Urine - ENDOCRINE/METABOLIC Hx Diabetes Mellitus Type 2: Yes - HEMATOLOGICAL/ONCOLOGICAL Hx Blood Disorders: No - INTEGUMENTARY Other/Comment: Pressure Ulcer - MUSCULOSKELETAL/RHEUMATOLOGICAL Hx Arthritis: Yes (OA, Gout) - GASTROINTESTINAL Hx Gastrointestinal Disorders: Yes Hx Gastritis: Yes - GENITOURINARY/GYNECOLOGICAL Hx Genitourinary Disorders: Yes Other/Comment: Obstructive and Reflux Uropathy - PSYCHIATRIC Hx Substance Use: No - SURGICAL HISTORY Hx Surgeries: Yes Other/Comment: "Quadruple bypass" - ANESTHESIA Hx Anesthesia: Yes Hx Anesthesia Reactions: No Hx Malignant Hyperthermia: No Meds Allergies/Adverse Reactions: Allergies Allergy/AdvReac Type Severity Reaction Status Date / Time No Known Allergies Allergy Verified 05/27/17 05:37 Physical Exam - Constitutional Appears: No Acute Distress, Chronically Ill - Head Exam Head Exam: ATRAUMATIC, NORMAL INSPECTION, NORMOCEPHALIC - Eye Exam Eye Exam: EOMI, Normal appearance, PERRL Pupil Exam: NORMAL ACCOMODATION, PERRL - Respiratory Exam Respiratory Exam: Decreased Breath Sounds, Rales, Rhonchi - Cardiovascular Exam Cardiovascular Exam: REGULAR RHYTHM - GI/Abdominal Exam GI & Abdominal Exam: Normal Bowel Sounds, Soft. absent: Tenderness Results - Vital Signs Recent Vital Signs: Last Vital Signs Temp 98.4 F 07/24/17 16:46 Pulse 107 H 07/24/17 18:00 Resp 15 07/24/17 16:46 BP 135/68 07/24/17 16:46 Pulse Ox 99 07/24/17 16:46 - Labs Result Diagrams: 08/16/17 08:01 08/16/17 08:01 Labs: Laboratory Results - last 24 hr 11/0107/24/17 07/24/17 11:15 11:15 11:26 WBC 12.0 H D RBC 3.65 L Hgb 9.9 L Hct 31.4 L MCV 86.0 MCH 27.3 MCHC 31.7 L RDW 16.9 H Plt Count 304 D MPV 7.8 Neut % (Auto) 79.9 H Lymph % (Auto) 13.0 L Scott % (Auto) 6.5 Eos % (Auto) 0.1 Baso % (Auto) 0.5 Neut # 9.5 H Lymph # 1.6 Scott # 0.8 Eos # 0.0 Baso # 0.1 pO2 45 VBG pH 7.36 VBG pCO2 38 L VBG HCO3 21.6 VBG Total CO2 22.7 VBG O2 Sat (Calc) 83.1 H VBG Base Excess -3.6 L VBG Potassium 4.1 Glucose 131 H Lactate 1.8 Sodium 138 144.0 Potassium 4.5 Chloride 101 109.0 H Carbon Dioxide 23 Anion Gap 19 BUN 89 H Creatinine 3.7 H Est GFR ( Amer) 19 Est GFR (Non-Af Amer) 16 POC Glucose (mg/dL) Random Glucose 129 H Calcium 9.2 Phosphorus 7.0 H Magnesium 2.1 Iron Total Bilirubin 1.1 AST 19 ALT 34 Alkaline Phosphatase 81 Total Creatine Kinase 67 CK-MB (Mass) 1.62 Troponin I 0.1660 H* Total Protein 8.5 H Albumin 3.7 Globulin 4.8 H Albumin/Globulin Ratio 0.8 L Lipase 45 Venous Blood Potassium 4.1 Urine Color Urine Clarity Urine pH Ur Specific [place] Urine Protein Urine Glucose (UA) Urine Ketones Urine Blood Urine Nitrate Urine Bilirubin Urine Urobilinogen Ur Leukocyte Esterase Urine WBC (Auto) Urine RBC (Auto) Ur Squamous Epith Cells Urine Bacteria Urine Osmolality Ur Random Sodium Ur Random Potassium Influenza Typ A,B (EIA) 07/24/17 07/24/17 07/24/17 11:54 12:02 17:59 WBC RBC Hgb Hct MCV MCH MCHC RDW Plt Count MPV Neut % (Auto) Lymph % (Auto) Scott % (Auto) Eos % (Auto) Baso % (Auto) Neut # Lymph # Scott # Eos # Baso # pO2 VBG pH VBG pCO2 VBG HCO3 VBG Total CO2 VBG O2 Sat (Calc) VBG Base Excess VBG Potassium Glucose Lactate Sodium Potassium Chloride Carbon Dioxide Anion Gap BUN Creatinine Est GFR ( Amer) Est GFR (Non-Af Amer) POC Glucose (mg/dL) 130 H Random Glucose Calcium Phosphorus Magnesium Iron Total Bilirubin AST ALT Alkaline Phosphatase Total Creatine Kinase CK-MB (Mass) Troponin I Total Protein Albumin Globulin Albumin/Globulin Ratio Lipase Venous Blood Potassium Urine Color Rosemarie Urine Clarity Hazy Urine pH 5.0 Ur Specific [place] 1.015 Urine Protein 1+ H Urine Glucose (UA) Normal Urine Ketones Negative Urine Blood 2+ H Urine Nitrate Negative Urine Bilirubin Negative Urine Urobilinogen 4.0 Ur Leukocyte Esterase 2+ H Urine WBC (Auto) 14 H Urine RBC (Auto) 5 H Ur Squamous Epith Cells 1 Urine Bacteria Rare Urine Osmolality Ur Random Sodium Ur Random Potassium Influenza Typ A,B (EIA) Negative for flu a/b 07/24/17 07/24/17 07/24/17 21:28 21:28 21:37 WBC RBC Hgb Hct MCV MCH MCHC RDW Plt Count MPV Neut % (Auto) Lymph % (Auto) Scott % (Auto) Eos % (Auto) Baso % (Auto) Neut # Lymph # Scott # Eos # Baso # pO2 VBG pH VBG pCO2 VBG HCO3 VBG Total CO2 VBG O2 Sat (Calc) VBG Base Excess VBG Potassium Glucose Lactate Sodium Potassium Chloride Carbon Dioxide Anion Gap BUN Creatinine Est GFR ( Amer) Est GFR (Non-Af Amer) POC Glucose (mg/dL) 152 H Random Glucose Calcium Phosphorus Magnesium Iron Total Bilirubin AST ALT Alkaline Phosphatase Total Creatine Kinase CK-MB (Mass) Troponin I Total Protein Albumin Globulin Albumin/Globulin Ratio Lipase Venous Blood Potassium Urine Color Urine Clarity Urine pH Ur Specific [place] Urine Protein Urine Glucose (UA) Urine Ketones Urine Blood Urine Nitrate Urine Bilirubin Urine Urobilinogen Ur Leukocyte Esterase Urine WBC (Auto) Urine RBC (Auto) Ur Squamous Epith Cells Urine Bacteria Urine Osmolality 376 Ur Random Sodium 60 Ur Random Potassium 37.1 Influenza Typ A,B (EIA) 07/24/17 21:38 WBC RBC Hgb Hct MCV MCH MCHC RDW Plt Count MPV Neut % (Auto) Lymph % (Auto) Scott % (Auto) Eos % (Auto) Baso % (Auto) Neut # Lymph # Scott # Eos # Baso # pO2 VBG pH VBG pCO2 VBG HCO3 VBG Total CO2 VBG O2 Sat (Calc) VBG Base Excess VBG Potassium Glucose Lactate Sodium Potassium Chloride Carbon Dioxide Anion Gap BUN Creatinine Est GFR ( Amer) Est GFR (Non-Af Amer) POC Glucose (mg/dL) Random Glucose Calcium Phosphorus Magnesium Iron 19 L Total Bilirubin AST ALT Alkaline Phosphatase Total Creatine Kinase CK-MB (Mass) Troponin I Total Protein Albumin Globulin Albumin/Globulin Ratio Lipase Venous Blood Potassium Urine Color Urine Clarity Urine pH Ur Specific [place] Urine Protein Urine Glucose (UA) Urine Ketones Urine Blood Urine Nitrate Urine Bilirubin Urine Urobilinogen Ur Leukocyte Esterase Urine WBC (Auto) Urine RBC (Auto) Ur Squamous Epith Cells Urine Bacteria Urine Osmolality Ur Random Sodium Ur Random Potassium Influenza Typ A,B (EIA) Assessment & Plan (1) CKD (chronic kidney disease) Status: Acute (2) Failure to thrive Status: Acute (3) Fever Status: Acute (4) Pneumonia Status: Acute (5) Toxic metabolic encephalopathy Status: Acute
[2017-07-25] MEDS: Dextrose 5%/0.9% NS 1,000 ML IV SCH ×2 (05:30→17:00)
[2017-07-25] MEDS: Levothyroxine 25 MCG TAB PO SCH (06:17)
[2017-07-25 07:40] LABS: POTASSIUM 4.5 mmol/L (3.6-5.2)
[2017-07-25 07:43] LABS: CALCIUM 8.7 mg/dl (8.6-10.4)
[2017-07-25 08:28] LABS: TROPONIN I 0.135 ng/mL (0.00-0.120)
--- NOTE | 2017-07-25 09:07 | CP.PCM.PN ---
Subjective - Date & Time of Evaluation Date of Evaluation: 07/25/17 Time of Evaluation: 09:07 - Subjective Subjective: pt is seen and examined, follow up consult is dictated #[id number] add uloric 40 mg poqd Objective - Vital Signs/Intake and Output Vital Signs (last 24 hours): Temp Pulse Resp BP Pulse Ox 98.1 F 101 H 20 129/64 97 07/25/17 07:10 07/25/17 07:10 07/25/17 07:10 07/25/17 07:10 07/25/17 07:10 Intake and Output: 07/25/17 07/25/17 06:59 18:59 Intake Total 800 Output Total 500 Balance 300 - Medications Medications: Current Medications Acetaminophen (Tylenol 325mg Tab) 650 mg PO Q6 PRN PRN Reason: Fever >100.4 F Amlodipine Besylate (Norvasc) 10 mg PO DAILY [facility] Aspirin (Ecotrin) 81 mg PO DAILY [facility] Clopidogrel Bisulfate (Plavix) 75 mg PO DAILY [facility] Famotidine (Pepcid) 20 mg IVP DAILY [facility] Last Admin: 07/24/17 18:14 Dose: 20 mg Ferric Sodium Gluconate Complex (Ferrlecit) 125 mg IVPB DAILY [facility] Stop: 07/28/17 10:01 Finasteride (Proscar) 5 mg PO DAILY [facility] Heparin Sodium (Porcine) (Heparin) 5,000 units SC Q8 [facility] Last Admin: 07/25/17 06:17 Dose: 5,000 units Hydralazine HCl (Apresoline) 25 mg PO BID [facility] Last Admin: 07/24/17 19:10 Dose: 25 mg Ceftriaxone Sodium 1 gm/ (Sodium Chloride) 100 mls @ 100 mls/hr IVPB DAILY [facility] Dextrose/Sodium Chloride (Dextrose 5%/0.9% Ns 1000 Ml) 1,000 mls @ 100 mls/hr IV .Q10H [facility] Last Admin: 07/25/17 05:30 Dose: 100 mls/hr Levothyroxine Sodium (Synthroid) 25 mcg PO DAILY@0630 [facility] Last Admin: 07/25/17 06:17 Dose: 25 mcg Rosuvastatin Calcium (Crestor) 10 mg PO HS [facility] Last Admin: 07/24/17 21:25 Dose: 10 mg Tamsulosin HCl (Flomax) 0.4 mg PO DAILY [facility] - Labs Labs: 07/24/17 11:15 07/25/17 06:59
--- NOTE | 2017-07-25 09:51 | CON ---
RENAL CONSULTATION DATE: 07/24/2017 LOCATION: The patient is located in room 651, bed B. REQUESTED BY: Jeffery Thrasher MD REASON FOR EVALUATION: Acute renal failure and chronic kidney disease for further evaluation. HISTORY OF PRESENT ILLNESS: Mr. Cunningham is an 82 -year-old elderly male with a past medical history significant for hypertension, tophaceous gout, chronic kidney disease, hyperkalemia, metabolic acidosis, coronary artery disease, status post CABG, was admitted to [facility] on 05/27/2017 and discharged to jail on 06/06/2017 after being treated for severe weakness, hyperkalemia, and metabolic acidosis. The patient was discharged to jail, now the patient was brought to the emergency room, not feeling well and drowsiness and decreased p.o. intake and found to have the patient was febrile and also urine was cloudy, status post change of the Corley catheter in the emergency room. The patient is arousable and following simple commands, not in distress. The patient's family is at bedside. Denies any chest pain or palpitations. Denies any abdominal pain. Denies any swelling of the legs. PAST MEDICAL HISTORY: Significant for longstanding hypertension, tophaceous gout, coronary artery disease, status post CABG, metabolic acidosis, hyperkalemia, history of falls, and generalized weakness. PAST SURGICAL HISTORY: Status post CABG. ALLERGIES: NO KNOWN DRUG ALLERGIES. CURRENT MEDICATIONS: Include Tylenol, levothyroxine 25 mcg daily, Proscar 5 mg daily, Plavix 75 mg daily, Pepcid 20 mg daily, amlodipine 10 mg daily, subcutaneous heparin 5000 q.8 hours, Flomax 0.4 mg daily, Ecotrin 81 mg daily, IV fluids, D5 normal saline 800 mL per hour, Crestor 10 mg at bedtime, Rocephin 1 g daily, and hydralazine 25 mg p.o. b.i.d. SOCIAL HISTORY: No smoking at this time. Ex-smoker, ex-alcohol use, and no drug abuse. PERSONAL HISTORY: He is a and he has 3 children, 2 sons and 1 daughter. Daughter . His with cancer. REVIEW OF SYSTEMS: Significant for generalized weakness, decreased p.o. intake, fever, and cloudy urine. All of the review of systems are reviewed and negative. PHYSICAL EXAMINATION: GENERAL: Mr. Cunningham is an 82-year-old elderly male, drowsy, and arousable. VITAL SIGNS: Blood pressure 135/68, pulse 112, respirations 15, temperature 98.4, and saturation 99%. Height is 6 feet 3 inches and weight is 157 pounds. HEENT: Pupils are normal and reactive to light and accommodation. Conjunctivae pink. Sclerae anicteric. Tongue is dry. Trachea is midline. LUNGS: Symmetric on both sides. Bilateral breath sounds present. No crackles. CARDIOVASCULAR: [place] at the fifth intercostal space and midclavicular line. S1 and S2 audible. No murmur. No gallop. The patient has a midsternal scar present from the previous CABG. ABDOMEN: Soft and tympanic. No guarding. No rigidity. No hepatosplenomegaly. CENTRAL NERVOUS SYSTEM: The patient is drowsy, arousable, and following simple commands. EXTREMITIES: No cyanosis. No clubbing. No edema. 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 Skin turgor is poor. LABORATORY DATA: Urine is slightly cloudy. His laboratory data include as follows, as of 07/24/2017; WBC 12, hemoglobin 9.9, hematocrit is 31.4, and platelets 304. VBG; pH of 7.36, pO2 of 45, pCO2 of 38, bicarbonate 21.6, saturation 83, and lactic acid 1.8. Sodium 138, potassium 4.5, chloride 101, CO2 of 23, BUN 87, creatinine 3.7, glucose 129, calcium 9.2, phosphorous 7, and magnesium 2.1. Total bilirubin 1.1, AST 19, ALT 34, and alkaline phosphatase 81. Troponin 0.16 and CK-MB 1.6. Urinalysis; selvin, hazy, pH of 5, specific gravity 1.015, protein 1+, glucose normal, ketones negative, blood 2+, nitrites negative, bilirubin negative, urobilinogen is 4.0, leukocyte esterase 2+, WBC 14, RBC 5, and bacteria rare. Influenza A and B antibodies negative. ASSESSMENT: In summary, Mr. Cunningham is an 82-year-old elderly male with a history of hypertension, tophaceous gout, hyperkalemia, metabolic acidosis, congestive heart failure, coronary artery disease, status post coronary artery bypass graft with generalized weakness, p.o. intake and fever, and increased BUN and creatinine. 1. Renal failure, acute on chronic kidney disease. 2. Anemia secondary to renal failure, rule out iron deficiency anemia. 3. Rule out urosepsis. 4. Dehydration. 5. Hypertension. PLAN: Continue IV fluids, D5 normal saline 800 mL per hour. Continue to monitor BMP. Continue IV fluids. Follow up blood culture and urine culture reports. Overall prognosis is guarded. Thank you for allowing me to participate in your patient's care. Hernan Peterson MD
[2017-07-25] MEDS: Ferric Sodium Gluconat Complex 62.5 mg/5 ml Vial IVPB SCH (10:06)
--- NOTE | 2017-07-25 14:09 | CON ---
DATE: HISTORY OF PRESENT ILLNESS: The patient is an 82-year-old , who presented with sepsis and UTI. The patient apparently has fever with catheter, which was not functioning well and admitted with sepsis. One month after this incident, the patient was voiding with frequency, but with slow stream, but he was emptying his bladder. He has chronic renal disease. His BUN and creatinine elevated, last creatinine 3.5. No surgery done. The Corley which was inserted about 2 weeks ago only, replaced with new catheter and urine culture and blood culture were done. PHYSICAL EXAMINATION: GENERAL: The patient is alert, oriented. ABDOMEN: Soft. No flank tenderness. No kidney palpable. No suprapubic fullness or tenderness. Corley catheter functioning well. No bleeding. GENITOURINARY: Penis normal. Testes in the scrotum. No evidence of any epididymitis or swelling of the scrotum. RECTAL: It is difficult for the patient to bend his legs to do a rectal, was not done. IMPRESSION: Urinary tract infection due to Corley catheter, chronic renal failure, outlet obstruction. PLAN: When the infection subsides, I will schedule the patient for cysto CMG to see if any possibility to remove the catheter or if he needs procedure, I will recommend that. I will follow him. Thank you for your consult. Yobani Sparks MD
--- NOTE | 2017-07-25 14:58 | CON ---
CARDIOLOGY CONSULTATION DATE: REQUESTING PHYSICIAN: Daniel Coyle MD HISTORY OF PRESENT ILLNESS: An 82-year-old male with history of hypertension, chronic kidney disease, obstructive uropathy, coronary artery disease, and previous CABG who was brought in with urosepsis. Cardiac evaluation and followup is requested. The patient is known to me over past many years. He has a history of hypertension and chronic kidney disease, being followed by Dr. Peterson. More than 15 years ago, he had CABG done at [facility] severe triple vessel disease. He has severe LVH with normal LV systolic function and LV diastolic dysfunction. He has been maintained on hydralazine 25 mg p.o. twice a day, Crestor, and aspirin. PERSONAL HISTORY: Does not smoke and does not drink. ALLERGIES: DENIED. PAST MEDICAL HISTORY: Severe osteoarthritis, gout, was being followed by Dr. Aggarwal in the past, hypertension, and CABG. Left foot infection. PAD. REVIEW OF SYSTEMS: Generalized weakness is noted essentially bed , currently in the rehab. No urinary complaints at this point, although he has a Corley catheter. No chest pain. No orthopnea. No PND. No ankle edema. Cough, but no expectoration. No hemoptysis. No abdominal pain. Severe arthritis and rheumatoid, gouty. No history of TIAs or CVAs. No blurred vision. No fever. No chills. Lethargy was noted. PHYSICAL EXAMINATION: GENERAL: Shows an elderly male, in no acute distress, and appears chronically sick. VITAL SIGNS: He is 6 feet 3 inches and weighs 157 pounds. His blood pressure is 154/68, heart rate of 112, respiratory rate of 20, temperature of 100.9, and O2 sat is 97. HEENT: Head is normocephalic. Eyes; no pallor. No icterus. Mouth; complete dentures. NECK: Supple. No thyroid enlargement. No carotid bruits. LUNGS: Clear to auscultation bilaterally. HEART: PMI is not localized. S1 and S2 is distant and tachycardic. Grade 2/6 early systolic murmur in the mitral and aortic area. ABDOMEN: Soft and nontender. Corley catheter is noted. EXTREMITIES: No cyanosis or clubbing. Distal pulses are feeble, but palpable. NEUROLOGIC: Awake, alert, and oriented x3. No focal signs. LABORATORY DATA: His hemoglobin is 9.9 and WBC is 12. Potassium is 4.5, BUN is 89, and creatinine is 3.7. Chest x-ray was reported clear. EKG is not available. ASSESSMENT AND PLAN: This is an 82-year-old gentleman with history of hypertension, chronic kidney disease, and coronary artery disease. At this point, we will continue to recommend hydration, control of sepsis. No specific treatment is recommended cardiac cervantes. Do not need any cardiac workup. I thank you kindly and we will follow as needed. Jeffery Thrasher MD
[2017-07-25 15:26] LABS: FECAL LEUKOCYTES NEGATIVE (NEGATIVE)
[2017-07-25 18:01] LABS: C DIFF TOXIN A B NEGATIVE (NEGATIVE)
--- NOTE | 2017-07-25 22:55 | CP.PCM.PN ---
Subjective - Date & Time of Evaluation Date of Evaluation: 07/25/17 Time of Evaluation: 20:00 - Subjective Subjective: Pt seen and evaluated by me at bedside, is improving clinically, on antibiotics Objective - Vital Signs/Intake and Output Vital Signs (last 24 hours): Temp Pulse Resp BP Pulse Ox 98.7 F 110 H 20 147/74 99 07/25/17 15:00 07/25/17 16:00 07/25/17 15:00 07/25/17 15:00 07/25/17 15:00 Intake and Output: 07/25/17 07/26/17 18:59 06:59 Intake Total 1080 Output Total 650 450 Balance 430 -450 - Medications Medications: Current Medications Acetaminophen (Tylenol 325mg Tab) 650 mg PO Q6 PRN PRN Reason: Fever >100.4 F Amlodipine Besylate (Norvasc) 10 mg PO DAILY [facility] Last Admin: 07/25/17 10:06 Dose: 10 mg Aspirin (Ecotrin) 81 mg PO DAILY [facility] Last Admin: 07/25/17 10:07 Dose: 81 mg Clopidogrel Bisulfate (Plavix) 75 mg PO DAILY [facility] Last Admin: 07/25/17 10:06 Dose: 75 mg Famotidine (Pepcid) 20 mg IVP DAILY [facility] Last Admin: 07/25/17 09:58 Dose: 20 mg Ferric Sodium Gluconate Complex (Ferrlecit) 125 mg IVPB DAILY [facility] Stop: 07/28/17 10:01 Last Admin: 07/25/17 10:06 Dose: 125 mg Finasteride (Proscar) 5 mg PO DAILY [facility] Last Admin: 07/25/17 10:07 Dose: 5 mg Heparin Sodium (Porcine) (Heparin) 5,000 units SC Q8 [facility] Last Admin: 07/25/17 22:10 Dose: 5,000 units Hydralazine HCl (Apresoline) 25 mg PO BID [facility] Last Admin: 07/25/17 17:55 Dose: 25 mg Dextrose/Sodium Chloride (Dextrose 5%/0.9% Ns 1000 Ml) 1,000 mls @ 100 mls/hr IV .Q10H [facility] Last Admin: 07/25/17 17:00 Dose: 100 mls/hr Ceftriaxone Sodium 1 gm/ (Dextrose) 100 mls @ 100 mls/hr IVPB DAILY [facility] Last Admin: 07/25/17 12:12 Dose: 100 mls/hr Levothyroxine Sodium (Synthroid) 25 mcg PO DAILY@0630 [facility] Last Admin: 07/25/17 06:17 Dose: 25 mcg Rosuvastatin Calcium (Crestor) 10 mg PO HS [facility] Last Admin: 07/25/17 22:09 Dose: 10 mg Tamsulosin HCl (Flomax) 0.4 mg PO DAILY [facility] Last Admin: 07/25/17 10:16 Dose: 0.4 mg - Labs Labs: 07/24/17 11:15 07/25/17 06:59
[2017-07-26] MEDS: Levothyroxine 25 MCG TAB PO SCH (05:35)
[2017-07-26 07:35] LABS: POTASSIUM 4.2 mmol/L (3.6-5.2)
[2017-07-26 07:38] LABS: CALCIUM 8.6 mg/dl (8.6-10.4)
[2017-07-26] MEDS: Dextrose 5%/0.9% NS 1,000 ML IV SCH ×3 (08:01→22:09)
[2017-07-26] MEDS ORDERED: Piperacill/Tazo 2.25gm in Dex 2.25 GM/50 ML BAG IVPB SCH (08:45)
--- NOTE | 2017-07-26 10:00 | CON ---
FOLLOWUP RENAL CONSULTATION LOCATION: The patient is located in room 651, bed B. REQUESTED BY: Daniel Coyle MD REASON FOR FOLLOWUP: Acute renal failure, chronic kidney disease and sepsis. HISTORY OF PRESENT ILLNESS: Mr. Cunningham is an 82-year-old elderly very cachectic male with a past medical history significant for hypertension, chronic kidney disease, tophaceous gout, coronary artery disease, status post CABG, status post rhabdomyolysis, metabolic acidosis, hyperkalemia, who was recently admitted from the [facility] on 06/06/2017, when he was admitted with rhabdomyolysis. After 10 days the patient was [facility]. Now, the patient was sent from the penitentiary with decreased p.o. intake, drowsy, weak and tired. The patient was found to have low-grade fever on admission and also with increased BUN and creatinine and dehydration. The patient is on IV fluids. The patient is feeling much better today, not in acute distress. Denies any chest pain or palpitations. Denies any cp or cough. No orthopnea. No nausea, vomiting or diarrhea. The patient does complain of pain in knee joints and ankle joints. PHYSICAL EXAMINATION: VITAL SIGNS: As follows; blood pressure this morning 129/64, pulse 101, respirations 20, temperature 98.1, saturation 97%, height 6 feet 3 inches and weight is 157 pounds. GENERAL: The patient is an 82-year-old elderly male moderately-built, moderately-nourished. HEENT: Pupils normal and reactive to light and accommodation. Conjunctivae pink. Sclerae anicteric. Tongue is moist. Trachea is midline. LUNGS: Symmetrical on both side. Bilateral breath sounds present. Clear on auscultation. CARDIOVASCULAR SYSTEM: [place] at the fifth intercostal space, midclavicular line. S1 and S2 audible. No murmur. No gallop. The patient has a mid sternal scar present from the previous CABG. ABDOMEN: Normal in appearance, soft, and tympanic. No guarding. No rigidity. No hepatosplenomegaly. CENTRAL NERVOUS SYSTEM: The patient is alert, awake, and oriented x2-3. Cranial nerves II through XII grossly intact. Sensory and motor system is within normal limits. EXTREMITIES: No cyanosis. No clubbing. No edema. 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 CURRENT MEDICATIONS: Include as follows hydralazine 25 mg p.o. b.i.d., Rocephin 1 g daily, Crestor 10 mg p.o. at bedtime, Ecotrin 81 mg p.o. daily, Ferrlecit 125 mg daily, Flomax 0.4 mg p.o. daily, SubQ heparin 5000 q.8 hours, amlodipine 10 mg daily, Pepcid 20 mg IV daily, Plavix 75 mg p.o. daily, Proscar 5 mg p.o. daily, Synthroid 25 mcg daily, Tylenol. His other laboratory data include as of 07/25/2017; sodium 140, potassium 4.5, chloride 106, CO2 of 21, BUN 94, creatinine 3.3, glucose is 117, calcium 8.7. Accu-Cheks 130 and 152. Iron is 19 and TIBC is 207 and saturation is 9%. His troponin levels from yesterday is 0.166, 0.164 and 0.135. Other laboratory data as of 07/24/2017; blood culture x2 negative day 1 and urine culture is positive for gram-negative jr. ASSESSMENT: In summary, Mr. Cunningham is an 82-year-old elderly male with hypertension, tophaceous gout, chronic kidney disease stage IV, history of hyperkalemia, metabolic acidosis, history of rhabdomyolysis, dehydration, congestive heart failure, gout, who was [facility] the [facility] with low-grade fever and lethargy with elevated white count, BUN and creatinine and now urine culture is positive for gram-negative jr. 1. Acute renal failure and chronic kidney disease secondary to intravascular depletion. 2. Urosepsis. 3. Hypertension. 4. Tophaceous gout. PLAN: Continue IV fluids, D5 normal saline at 100 mL per hour, and continue Ferrlecit 125 mg daily, and continue Flomax and follow. Continue hydralazine and we will titrate as needed. Continue to monitor CPK levels, and also continue antibiotics. Repeat BMP in the a.m. We will follow you. Followup urine culture report and lasix 40 mg p.o. daily. Thank you for allowing me to participate in your patient's care. Hernan Peterson MD [facility] # [id number]
--- NOTE | 2017-07-26 10:54 | CP.PCM.PN ---
Subjective - Date & Time of Evaluation Date of Evaluation: 07/26/17 Time of Evaluation: 10:53 - Subjective Subjective: confuse, Objective - Vital Signs/Intake and Output Vital Signs (last 24 hours): Temp Pulse Resp BP Pulse Ox 98.4 F 127 H 20 126/78 99 07/26/17 10:50 07/26/17 10:50 07/26/17 10:50 07/26/17 10:50 07/26/17 10:50 Intake and Output: 07/26/17 07/26/17 06:59 18:59 Intake Total 1840 Output Total 950 Balance 890 - Medications Medications: Current Medications Acetaminophen (Tylenol 325mg Tab) 650 mg PO Q6 PRN PRN Reason: Fever >100.4 F Amlodipine Besylate (Norvasc) 10 mg PO DAILY [facility] Last Admin: 07/26/17 09:36 Dose: 10 mg Aspirin (Ecotrin) 81 mg PO DAILY [facility] Last Admin: 07/26/17 09:36 Dose: 81 mg Clopidogrel Bisulfate (Plavix) 75 mg PO DAILY [facility] Last Admin: 07/26/17 09:35 Dose: 75 mg Famotidine (Pepcid) 20 mg IVP DAILY [facility] Last Admin: 07/26/17 09:35 Dose: 20 mg Ferric Sodium Gluconate Complex (Ferrlecit) 125 mg IVPB DAILY [facility] Stop: 07/28/17 10:01 Last Admin: 07/25/17 10:06 Dose: 125 mg Finasteride (Proscar) 5 mg PO DAILY [facility] Last Admin: 07/26/17 09:35 Dose: 5 mg Heparin Sodium (Porcine) (Heparin) 5,000 units SC Q8 [facility] Last Admin: 07/26/17 05:33 Dose: 5,000 units Hydralazine HCl (Apresoline) 25 mg PO BID [facility] Last Admin: 07/26/17 09:35 Dose: 25 mg Dextrose/Sodium Chloride (Dextrose 5%/0.9% Ns 1000 Ml) 1,000 mls @ 100 mls/hr IV .Q10H [facility] Last Admin: 07/26/17 08:01 Dose: 100 mls/hr Ceftriaxone Sodium 1 gm/ (Dextrose) 100 mls @ 100 mls/hr IVPB DAILY [facility] Last Admin: 07/26/17 09:36 Dose: 100 mls/hr Levothyroxine Sodium (Synthroid) 25 mcg PO DAILY@0630 [facility] Last Admin: 07/26/17 05:35 Dose: 25 mcg Metoprolol Tartrate (Lopressor) 25 mg PO BID [facility] Rosuvastatin Calcium (Crestor) 10 mg PO HS [facility] Last Admin: 07/25/17 22:09 Dose: 10 mg Tamsulosin HCl (Flomax) 0.4 mg PO DAILY [facility] Last Admin: 07/26/17 09:36 Dose: 0.4 mg - Labs Labs: 07/24/17 11:15 07/26/17 06:35 - Constitutional Appears: Confused, Chronically Ill - Head Exam Head Exam: NORMOCEPHALIC - Respiratory Exam Respiratory Exam: Clear to Ausculation Bilateral - Cardiovascular Exam Cardiovascular Exam: REGULAR RHYTHM, Murmur - GI/Abdominal Exam GI & Abdominal Exam: Soft - Extremities Exam Extremities Exam: absent: Pedal Edema Assessment and Plan - Assessment and Plan (Free Text) Assessment: confused,knows my name.looks sick.probably septic.r/o cva.check cbc,ct head.blood culture
[2017-07-26] MEDS: Ferric Sodium Gluconat Complex 62.5 mg/5 ml Vial IVPB SCH (11:00)
--- NOTE | 2017-07-26 11:43 | CT ---
PROCEDURE: CT HEAD WITHOUT CONTRAST. HISTORY: AMA COMPARISON: None available. TECHNIQUE: Axial computed tomography images were obtained through the head/brain without intravenous contrast. Radiation dose: Total exam DLP = 961.63 mGy-cm. This CT exam was performed using one or more of the following dose reduction techniques: Automated exposure control, adjustment of the mA and/or kV according to patient size, and/or use of iterative reconstruction technique. FINDINGS: HEMORRHAGE: No intracranial hemorrhage. BRAIN: Diffuse cerebral atrophy chronic microangiopathy are identified which appear age-appropriate. Chronic lacunar infarctions are identified in the bilateral caudate heads and bilateral lateral basal ganglia as well as the mid right rosa maria. No mass-effect is identified and there is no suspicious extra-axial collection appreciated. The midline brain appears unremarkable diffusely. VENTRICLES: Unremarkable. No hydrocephalus. CALVARIUM: Unremarkable. PARANASAL SINUSES: Incidental bilateral maxillary sinus disease identified. MASTOID AIR CELLS: Unremarkable as visualized. No inflammatory changes. OTHER FINDINGS: None. IMPRESSION: No definite acute intracranial findings by standard CT criteria. Age related neuro degenerative change identified as well as chronic lacunar infarctions as per above including the rosa maria.
[2017-07-26 12:14] LABS: MONO # 0.7 K/uL (0.0-0.8)
[2017-07-26 12:31] LABS: MEAN PLATELET VOLUME 7.9 fL (7.2-11.7)
[2017-07-26 12:36] LABS: BASO % 0.3 % (0.0-2.0); HEMATOCRIT 27.1 % (35.0-51.0); LYMPH # 1.2 K/uL (1.0-4.3); LYMPH % 13.5 % (20.0-40.0); MEAN CELL VOLUME 85.5 fL (80.0-94.0); MEAN CORPUSCULAR HEMOGLOBIN 27.5 pg (27.0-31.0); MEAN CORPUSCULAR HGB CONC 32.1 g/dL (33.0-37.0); MONO % 8.1 % (0.0-10.0); RED CELL DISTRIBUTION WIDTH 16.8 % (11.5-14.5); WHITE BLOOD COUNT 9.2 K/uL (4.8-10.8)
--- NOTE | 2017-07-26 13:57 | PN ---
DATE: The patient has a Corley catheter, which is functioning well. Still on antibiotic and has low-grade fever. No suprapubic tenderness and he is on antibiotics. I will follow him and most likely I will schedule him for Saturday if he is stable. Yobani Sparks MD
[2017-07-26] MEDS ORDERED: Vancomycin 500mg/D5W 100 ml 500 MG/100 ML BAG IVPB SCH (14:00)
--- NOTE | 2017-07-26 15:11 | CP.PCM.CON ---
History of Present Illness - History of Present Illness History of Present Illness: 82 y/o M with hx of HTN, CKD, obstructive uropathy requring wise catheter, presenting with lethargy and fever from snf. + Troponin on admission "Forgetful" at baseline per snf. History limited by dementia. referred for ID eval and management + urine c/s for enterococcus and Klebs - Medical History PMH: Arthritis (OA, Gout), HTN CAD s/p CABG CVA HTN OA OBS - [facility] Procedures EXTRACTION OF LEFT FOOT SKIN, EXTERNAL APPROACH (05/27/17) Review of Systems - Review of Systems Systems not reviewed;Unavailable: Altered Mental Status - Constitutional Constitutional: As Per HPI - EENT Eyes: absent: As Per HPI, Blind Spots, Blurred Vision, Change in Vision, Decreased Night Vision, Diplopia, Discharge, Dry Eye, Exophthalmos, Floaters, Irritation, Itchy Eyes, Loss of Peripheral Vision, Pain, Photophobia, Requires Corrective Lenses, Sees Flashes, Spots in Vision, Tunnel Vision, Other Visual Disturbances, Loss of Vision, Other Ears: absent: As Per HPI, Decreased Hearing, Ear Discharge, Ear Pain, Tinnitus, Abnormal Hearing, Disequilibrium, Dizziness, Other Nose/Mouth/Throat: absent: As Per HPI, Epistaxis, Nasal Congestion, Nasal Discharge, Nasal Obstruction, Nasal Trauma, Nose Pain, Post Nasal Drip, Sinus Pain, Sinus Pressure, Bleeding Gums, Change in Voice, Dental Pain, Dry Mouth, Dysphagia, Halitosis, Hoarsness, Lip Swelling, Mouth Lesions, Mouth Pain, Odynophagia, Sore Throat, Throat Swelling, Tongue Swelling, Facial Pain, Neck Pain, Neck Mass, Other - Cardiovascular Cardiovascular: As Per HPI - Respiratory Respiratory: absent: As Per HPI, Cough, Dyspnea, Hemoptysis, Dyspnea on Exertion , Wheezing, Snoring, Stridor, Pain on Inspiration, Chest Congestion, Excessive Mucous Production, Change in Mucous Color, Pain with Coughing, Other - Gastrointestinal Gastrointestinal: absent: As Per HPI, Abdominal Pain, Belching, Bloating, Change in Bowel Habits, Change in Stool Character, Coffee Ground Emesis, Constipation, Cramping, Diarrhea, Dyspepsia, Dysphagia, Early Satiety, Excessive Flatus, Fecal Incontinence, Heartburn, Hematemesis, Hematochezia, Loose Stools, Melena, Nausea, Odynophagia, Temesmus, Vomiting, Other - Genitourinary Genitourinary: As Per HPI - Musculoskeletal Musculoskeletal: As Per HPI - Integumentary Integumentary: As Per HPI - Neurological Neurological: As Per HPI - Psychiatric Psychiatric: absent: As Per HPI, Abnormal Sleep Pattern, Anhedonia, Anxiety, Auditory Hallucinations, Behavioral Changes, Change in Appetite, Change in Libido, Confusion, Depression, Difficulty Concentrating, Hallucinations, Homicidal Ideation, Hopelessness, Irritability, Memory Loss, Mood Swings, Panic Attacks, Paranoia, Suicidal Ideation, Visual Hallucinations, Tactile Hallucinations, Other - Endocrine Endocrine: absent: As Per HPI, Change in Body Appearance, Change in Libido, Cold Intolorance, Deepening of Voice, Excessive Sweating, Fatigue, Flushing, Heat Intolorance, Increase in Ring/Shoe/Hat Size, Palpitations, Polydipsia, Polyphagia, Polyuria, Other - Hematologic/Lymphatic Hematologic: absent: As Per HPI, Easy Bleeding, Easy Bruising, Lymphadenopathy, Other Past Patient History - Past Medical History & Family History Past Medical History?: Yes - Past Social History Smoking Status: Former Smoker - CARDIAC Hx Hypertension: Yes - PULMONARY Hx Respiratory Disorders: No - NEUROLOGICAL Hx Neurological Disorder: No - HEENT Hx HEENT Problems: No - RENAL Other/Comment: Chronic Kidney Disease. Retention of Urine - ENDOCRINE/METABOLIC Hx Diabetes Mellitus Type 2: Yes - HEMATOLOGICAL/ONCOLOGICAL Hx Blood Disorders: No - INTEGUMENTARY Other/Comment: Pressure Ulcer - MUSCULOSKELETAL/RHEUMATOLOGICAL Hx Arthritis: Yes (OA, Gout) - GASTROINTESTINAL Hx Gastrointestinal Disorders: Yes Hx Gastritis: Yes - GENITOURINARY/GYNECOLOGICAL Hx Genitourinary Disorders: Yes Other/Comment: Obstructive and Reflux Uropathy - PSYCHIATRIC Hx Substance Use: No - SURGICAL HISTORY Hx Surgeries: Yes Other/Comment: "Quadruple bypass" - ANESTHESIA Hx Anesthesia: Yes Hx Anesthesia Reactions: No Hx Malignant Hyperthermia: No Meds Allergies/Adverse Reactions: Allergies Allergy/AdvReac Type Severity Reaction Status Date / Time No Known Allergies Allergy Verified 05/27/17 05:37 - Medications Medications: Current Medications Acetaminophen (Tylenol 325mg Tab) 650 mg PO Q6 PRN PRN Reason: Fever >100.4 F Amlodipine Besylate (Norvasc) 10 mg PO DAILY [facility] Last Admin: 07/26/17 09:36 Dose: 10 mg Aspirin (Ecotrin) 81 mg PO DAILY [facility] Last Admin: 07/26/17 09:36 Dose: 81 mg Clopidogrel Bisulfate (Plavix) 75 mg PO DAILY [facility] Last Admin: 07/26/17 09:35 Dose: 75 mg Famotidine (Pepcid) 20 mg IVP DAILY [facility] Last Admin: 07/26/17 09:35 Dose: 20 mg Ferric Sodium Gluconate Complex (Ferrlecit) 125 mg IVPB DAILY [facility] Stop: 07/28/17 10:01 Last Admin: 07/26/17 11:00 Dose: 125 mg Finasteride (Proscar) 5 mg PO DAILY [facility] Last Admin: 07/26/17 09:35 Dose: 5 mg Heparin Sodium (Porcine) (Heparin) 5,000 units SC Q8 [facility] Last Admin: 07/26/17 14:08 Dose: 5,000 units Hydralazine HCl (Apresoline) 25 mg PO BID [facility] Last Admin: 07/26/17 09:35 Dose: 25 mg Dextrose/Sodium Chloride (Dextrose 5%/0.9% Ns 1000 Ml) 1,000 mls @ 100 mls/hr IV .Q10H [facility] Last Admin: 07/26/17 11:00 Dose: Not Given Ceftriaxone Sodium 1 gm/ (Dextrose) 100 mls @ 100 mls/hr IVPB DAILY [facility] Last Admin: 07/26/17 09:36 Dose: 100 mls/hr Vancomycin HCl/Dextrose (Vancocin) 500 mg in 100 mls @ 100 mls/hr IVPB Q24H [facility] Last Admin: 07/26/17 14:39 Dose: 100 mls/hr Levothyroxine Sodium (Synthroid) 25 mcg PO DAILY@0630 [facility] Last Admin: 07/26/17 05:35 Dose: 25 mcg Metoprolol Tartrate (Lopressor) 25 mg PO BID [facility] Last Admin: 07/26/17 10:52 Dose: 25 mg Rosuvastatin Calcium (Crestor) 10 mg PO HS [facility] Last Admin: 07/25/17 22:09 Dose: 10 mg Tamsulosin HCl (Flomax) 0.4 mg PO DAILY [facility] Last Admin: 07/26/17 09:36 Dose: 0.4 mg Physical Exam - Constitutional Appears: Non-toxic, Confused, Cachectic, Chronically Ill - Head Exam Head Exam: ATRAUMATIC, NORMAL INSPECTION, NORMOCEPHALIC - Eye Exam Eye Exam: PERRL. absent: Scleral icterus - ENT Exam ENT Exam: Mucous Membranes Dry, Normal External Ear Exam, Normal Oropharynx - Neck Exam Neck exam: Negative for: Lymphadenopathy, Thyromegaly - Respiratory Exam Respiratory Exam: Decreased Breath Sounds, Rhonchi - Cardiovascular Exam Cardiovascular Exam: REGULAR RHYTHM, +S1, +S2 - GI/Abdominal Exam GI & Abdominal Exam: Diminished Bowel Sounds, Distended, Soft. absent: Guarding , Rebound, Rigid, Tenderness - Rectal Exam Rectal Exam: Deferred - Exam Exam: NORMAL INSPECTION - Extremities Exam Extremities exam: Positive for: pedal pulses present. Negative for: calf tenderness, pedal edema, tenderness - Back Exam Back exam: absent: CVA tenderness (L), CVA tenderness (R), paraspinal tenderness - Neurological Exam Neurological exam: Alert, Altered, CN II-XII Intact Additional comments: weakness bilaterally left > right - Psychiatric Exam Psychiatric exam: Depressed - Skin Skin Exam: Dry Results - Vital Signs Recent Vital Signs: Last Vital Signs Temp 98.4 F 07/26/17 10:50 Pulse 127 H 07/26/17 10:50 Resp 20 07/26/17 10:50 BP 126/78 07/26/17 10:52 Pulse Ox 99 07/26/17 10:50 - Labs Result Diagrams: 07/26/17 12:10 07/26/17 06:35 Labs: Laboratory Results - last 24 hr 07/24/17 07/26/17 07/26/17 08:00 06:10 06:35 WBC RBC Hgb Hct MCV MCH MCHC RDW Plt Count MPV Neut % (Auto) Lymph % (Auto) [place] % (Auto) Eos % (Auto) Baso % (Auto) Neut # Lymph # [place] # Eos # Baso # Sodium 141 Potassium 4.2 Chloride 109 H Carbon Dioxide 19 L Anion Gap 17 BUN 86 H Creatinine 3.0 H Est GFR ( Amer) 24 Est GFR (Non-Af Amer) 20 POC Glucose (mg/dL) 143 H Random Glucose 127 H Lactic Acid Calcium 8.6 Stool Leukocytes, Qual Negative C. difficile Ag & Toxin Negative 07/26/17 07/26/17 07/26/17 12:05 12:10 12:21 WBC 9.2 RBC 3.16 L Hgb 8.7 L Hct 27.1 L MCV 85.5 MCH 27.5 MCHC 32.1 L RDW 16.8 H Plt Count 302 MPV 7.9 Neut % (Auto) 78.1 H Lymph % (Auto) 13.5 L [place] % (Auto) 8.1 Eos % (Auto) 0.0 Baso % (Auto) 0.3 Neut # 7.2 H Lymph # 1.2 [place] # 0.7 Eos # 0.0 Baso # 0.0 Sodium Potassium Chloride Carbon Dioxide Anion Gap BUN Creatinine Est GFR ( Amer) Est GFR (Non-Af Amer) POC Glucose (mg/dL) 149 H Random Glucose Lactic Acid 1.8 Calcium Stool Leukocytes, Qual C. difficile Ag & Toxin Assessment & Plan (1) Fever Status: Acute (2) Leukocytosis Status: Acute (3) UTI (urinary tract infection) Status: Acute (4) Acute renal failure Status: Acute (5) Generalized weakness Status: Acute (6) Hyperkalemia Status: Acute (7) Troponin level elevated Status: Acute (8) UTI (urinary tract infection) due to Enterococcus Status: Acute (9) UTI (urinary tract infection) due to Enterococcus Status: Acute (10) UTI due to Klebsiella species Status: Acute (11) UTI due to Klebsiella species Status: Acute - Assessment and Plan (Free Text) Assessment: cont supportive care may require advanced directives IV antibiotics for 7 days unless blood cultures turn positive or pt continues to spike fever
[2017-07-26] MEDS ORDERED: WATER IVPB SCH (16:00)
[2017-07-26] MEDS ORDERED: AMPICILLIN IVPB SCH (16:00)
[2017-07-26] MEDS ORDERED: DEXTROSE 5% IVPB SCH (16:00)
--- NOTE | 2017-07-26 16:59 | CARD ---
APPROVED REPORT EKG Measurement Heart [id number] <Conclusion> Sinus tachycardia ST & T wave abnormality, consider lateral ischemia Abnormal ECG
[2017-07-26] MEDS: DEXTROSE 5% IVPB SCH ×2 (18:00→22:08)
[2017-07-26] MEDS: WATER IVPB SCH ×2 (18:00→22:08)
[2017-07-26] MEDS: AMPICILLIN IVPB SCH ×2 (18:00→22:08)
--- NOTE | 2017-07-26 20:42 | CP.PCM.PN ---
Subjective - Date & Time of Evaluation Date of Evaluation: 07/26/17 Time of Evaluation: 20:41 - Subjective Subjective: pt is seen and examined, follow up consult is dictated #[id number] Objective - Vital Signs/Intake and Output Vital Signs (last 24 hours): Temp Pulse Resp BP Pulse Ox 99 F 109 H 20 120/68 96 07/26/17 15:35 07/26/17 16:00 07/26/17 15:35 07/26/17 18:05 07/26/17 15:35 - Medications Medications: Current Medications Acetaminophen (Tylenol 325mg Tab) 650 mg PO Q6 PRN PRN Reason: Fever >100.4 F Amlodipine Besylate (Norvasc) 10 mg PO DAILY [facility] Last Admin: 07/26/17 09:36 Dose: 10 mg Aspirin (Ecotrin) 81 mg PO DAILY [facility] Last Admin: 07/26/17 09:36 Dose: 81 mg Clopidogrel Bisulfate (Plavix) 75 mg PO DAILY [facility] Last Admin: 07/26/17 09:35 Dose: 75 mg Famotidine (Pepcid) 20 mg IVP DAILY [facility] Last Admin: 07/26/17 09:35 Dose: 20 mg Ferric Sodium Gluconate Complex (Ferrlecit) 125 mg IVPB DAILY [facility] Stop: 07/28/17 10:01 Last Admin: 07/26/17 11:00 Dose: 125 mg Finasteride (Proscar) 5 mg PO DAILY [facility] Last Admin: 07/26/17 09:35 Dose: 5 mg Heparin Sodium (Porcine) (Heparin) 5,000 units SC Q8 [facility] Last Admin: 07/26/17 14:08 Dose: 5,000 units Hydralazine HCl (Apresoline) 25 mg PO BID [facility] Last Admin: 07/26/17 18:06 Dose: 25 mg Dextrose/Sodium Chloride (Dextrose 5%/0.9% Ns 1000 Ml) 1,000 mls @ 100 mls/hr IV .Q10H [facility] Last Admin: 07/26/17 11:00 Dose: Not Given Ceftriaxone Sodium 1 gm/ (Dextrose) 100 mls @ 100 mls/hr IVPB DAILY [facility] Last Admin: 07/26/17 09:36 Dose: 100 mls/hr Ampicillin 1 gm/ Dextrose 100 mls @ 100 mls/hr IVPB Q6H [facility] Last Admin: 07/26/17 18:00 Dose: 100 mls/hr Levothyroxine Sodium (Synthroid) 25 mcg PO DAILY@0630 [facility] Last Admin: 07/26/17 05:35 Dose: 25 mcg Metoprolol Tartrate (Lopressor) 25 mg PO BID [facility] Last Admin: 07/26/17 18:05 Dose: 25 mg Rosuvastatin Calcium (Crestor) 10 mg PO HS [facility] Last Admin: 07/25/17 22:09 Dose: 10 mg Tamsulosin HCl (Flomax) 0.4 mg PO DAILY [facility] Last Admin: 07/26/17 09:36 Dose: 0.4 mg - Labs Labs: 07/26/17 12:10 07/26/17 06:35
[2017-07-27] MEDS: WATER IVPB SCH ×4 (04:05→21:20)
[2017-07-27] MEDS: DEXTROSE 5% IVPB SCH ×4 (04:05→21:20)
[2017-07-27] MEDS: AMPICILLIN IVPB SCH ×4 (04:05→21:20)
[2017-07-27 06:05] LABS: BASO % 0.2 % (0.0-2.0); HEMATOCRIT 29.8 % (35.0-51.0); LYMPH # 1.5 K/uL (1.0-4.3); MEAN CELL VOLUME 86.3 fL (80.0-94.0); MEAN CORPUSCULAR HEMOGLOBIN 26.8 pg (27.0-31.0); MEAN PLATELET VOLUME 8.2 fL (7.2-11.7); MONO # 0.7 K/uL (0.0-0.8); MONO % 5.4 % (0.0-10.0); NRBC % 0.1 % (0.0-2.0); RED CELL DISTRIBUTION WIDTH 16.9 % (11.5-14.5); WHITE BLOOD COUNT 12.5 K/uL (4.8-10.8)
[2017-07-27 06:15] LABS: POTASSIUM 4.2 mmol/L (3.6-5.2)
[2017-07-27] MEDS: Levothyroxine 25 MCG TAB PO SCH (06:18)
[2017-07-27 08:08] LABS: CHLORIDE URINE 66 mmol/L (32-290)
--- NOTE | 2017-07-27 09:21 | CP.PCM.PN ---
Subjective - Date & Time of Evaluation Date of Evaluation: 07/26/17 Time of Evaluation: 21:00 - Subjective Subjective: pt seen and examined today, cont supportive care may require advanced directives IV antibiotics for 7 days unless blood cultures turn positive or pt continues to spike fever Objective - Vital Signs/Intake and Output Vital Signs (last 24 hours): Temp Pulse Resp BP Pulse Ox 97.9 F 100 H 20 90/59 L 96 07/27/17 07:00 07/27/17 07:00 07/27/17 07:00 07/27/17 07:00 07/27/17 07:00 Intake and Output: 07/27/17 07/27/17 06:59 18:59 Intake Total 1640 Output Total 750 Balance 890 - Medications Medications: Current Medications Acetaminophen (Tylenol 325mg Tab) 650 mg PO Q6 PRN PRN Reason: Fever >100.4 F Aspirin (Ecotrin) 81 mg PO DAILY [facility] Last Admin: 07/26/17 09:36 Dose: 81 mg Clopidogrel Bisulfate (Plavix) 75 mg PO DAILY [facility] Last Admin: 07/26/17 09:35 Dose: 75 mg Famotidine (Pepcid) 20 mg IVP DAILY [facility] Last Admin: 07/26/17 09:35 Dose: 20 mg Ferric Sodium Gluconate Complex (Ferrlecit) 125 mg IVPB DAILY [facility] Stop: 07/28/17 10:01 Last Admin: 07/26/17 11:00 Dose: 125 mg Finasteride (Proscar) 5 mg PO DAILY [facility] Last Admin: 07/26/17 09:35 Dose: 5 mg Heparin Sodium (Porcine) (Heparin) 5,000 units SC Q8 [facility] Last Admin: 07/27/17 06:18 Dose: 5,000 units Hydralazine HCl (Apresoline) 25 mg PO BID [facility] Last Admin: 07/26/17 18:06 Dose: 25 mg Dextrose/Sodium Chloride (Dextrose 5%/0.9% Ns 1000 Ml) 1,000 mls @ 100 mls/hr IV .Q10H [facility] Last Admin: 07/26/17 22:09 Dose: 100 mls/hr Ceftriaxone Sodium 1 gm/ (Dextrose) 100 mls @ 100 mls/hr IVPB DAILY [facility] Last Admin: 07/26/17 09:36 Dose: 100 mls/hr Ampicillin 1 gm/ Dextrose 100 mls @ 100 mls/hr IVPB Q6H [facility] Last Admin: 07/27/17 04:05 Dose: 100 mls/hr Levothyroxine Sodium (Synthroid) 25 mcg PO DAILY@0630 [facility] Last Admin: 07/27/17 06:18 Dose: 25 mcg Metoprolol Tartrate (Lopressor) 25 mg PO BID [facility] Last Admin: 07/26/17 18:05 Dose: 25 mg Rosuvastatin Calcium (Crestor) 10 mg PO HS [facility] Last Admin: 07/26/17 22:07 Dose: 10 mg Tamsulosin HCl (Flomax) 0.4 mg PO DAILY [facility] Last Admin: 07/26/17 09:36 Dose: 0.4 mg - Labs Labs: 07/27/17 05:52 07/27/17 05:52
[2017-07-27] MEDS: Ferric Sodium Gluconat Complex 62.5 mg/5 ml Vial IVPB SCH (09:45)
[2017-07-27 10:48] LABS: ABG ALLEN TEST POS; ARTERIAL BLOOD HGB O2 SAT 96.3 % (95.0-98.0); CARBOXYHEMOGLOBIN 0.3 % (0.5-1.5); DRAW SITE LB; HHB 2.8 % (0.0-5.0); METHEMOGLOBIN 0.6 % (0.0-3.0)
--- NOTE | 2017-07-27 10:59 | RAD ---
HISTORY: chf COMPARISON: Chest x-ray performed 07/24/17 TECHNIQUE: Chest, one view. FINDINGS: LUNGS: Biapical pleural thickening. Mild to moderate pulmonary venous congestion. Please note that chest x-ray has limited sensitivity for the detection of pulmonary masses. PLEURA: No significant pleural effusion identified. No definite pneumothorax. CARDIOVASCULAR: Median sternotomy wires several which appear discontinuous. Cardiomegaly. Ectatic aorta. OSSEOUS STRUCTURES: Degenerative changes. VISUALIZED UPPER ABDOMEN: Unremarkable. OTHER FINDINGS: None. IMPRESSION: Biapical pleural thickening. Mild to moderate pulmonary venous congestion. Median sternotomy wires several which appear discontinuous. Cardiomegaly. Ectatic aorta.
--- NOTE | 2017-07-27 15:37 | CP.PCM.PN ---
Subjective - Date & Time of Evaluation Date of Evaluation: 07/27/17 Time of Evaluation: 15:35 Objective - Vital Signs/Intake and Output Vital Signs (last 24 hours): Temp Pulse Resp BP Pulse Ox 97.9 F 116 H 20 88/55 L 92 L 07/27/17 07:00 07/27/17 13:16 07/27/17 07:00 07/27/17 13:16 07/27/17 13:16 Intake and Output: 07/27/17 07/27/17 06:59 18:59 Intake Total 1640 950 Output Total 750 120 Balance 890 830 - Medications Medications: Current Medications Acetaminophen (Tylenol 325mg Tab) 650 mg PO Q6 PRN PRN Reason: Fever >100.4 F Aspirin (Ecotrin) 81 mg PO DAILY [facility] Last Admin: 07/27/17 10:58 Dose: 81 mg Clopidogrel Bisulfate (Plavix) 75 mg PO DAILY [facility] Last Admin: 07/27/17 10:50 Dose: 75 mg Famotidine (Pepcid) 20 mg IVP DAILY [facility] Last Admin: 07/27/17 11:00 Dose: 20 mg Ferric Sodium Gluconate Complex (Ferrlecit) 125 mg IVPB DAILY [facility] Stop: 07/28/17 10:01 Last Admin: 07/27/17 09:45 Dose: 125 mg Finasteride (Proscar) 5 mg PO DAILY [facility] Last Admin: 07/27/17 11:12 Dose: 5 mg Heparin Sodium (Porcine) (Heparin) 5,000 units SC Q8 [facility] Last Admin: 07/27/17 13:16 Dose: 5,000 units Hydralazine HCl (Apresoline) 25 mg PO BID [facility] Last Admin: 07/27/17 10:51 Dose: 25 mg Dextrose/Sodium Chloride (Dextrose 5%/0.9% Ns 1000 Ml) 1,000 mls @ 100 mls/hr IV .Q10H [facility] Last Admin: 07/26/17 22:09 Dose: 100 mls/hr Ceftriaxone Sodium 1 gm/ (Dextrose) 100 mls @ 100 mls/hr IVPB DAILY [facility] Last Admin: 07/27/17 09:46 Dose: 100 mls/hr Ampicillin 1 gm/ Dextrose 100 mls @ 100 mls/hr IVPB Q6H [facility] Last Admin: 07/27/17 09:00 Dose: 100 mls/hr Levothyroxine Sodium (Synthroid) 25 mcg PO DAILY@0630 [facility] Last Admin: 07/27/17 06:18 Dose: 25 mcg Metoprolol Tartrate (Lopressor) 25 mg PO BID [facility] Last Admin: 07/27/17 10:00 Dose: Not Given Rosuvastatin Calcium (Crestor) 10 mg PO HS [facility] Last Admin: 07/26/17 22:07 Dose: 10 mg Tamsulosin HCl (Flomax) 0.4 mg PO DAILY [facility] Last Admin: 07/27/17 10:57 Dose: 0.4 mg - Labs Labs: 07/27/17 05:52 07/27/17 05:52 - Constitutional Appears: Confused, Chronically Ill - Eye Exam Eye Exam: Normal appearance - Respiratory Exam Respiratory Exam: Clear to Ausculation Bilateral, Rales - Cardiovascular Exam Cardiovascular Exam: Tachycardia, REGULAR RHYTHM - GI/Abdominal Exam GI & Abdominal Exam: Soft Assessment and Plan - Assessment and Plan (Free Text) Assessment: septic.ct is negative. will give lasix 40 mg. Plan: wrong note.to cancel
--- NOTE | 2017-07-27 17:37 | CP.PCM.PN ---
Subjective - Date & Time of Evaluation Date of Evaluation: 07/27/17 Time of Evaluation: 17:36 - Subjective Subjective: pt is seen and examined, follow up consult is dictated #[id number] Objective - Vital Signs/Intake and Output Vital Signs (last 24 hours): Temp Pulse Resp BP Pulse Ox 98.8 F 115 H 20 100/66 93 L 07/27/17 15:07 07/27/17 15:07 07/27/17 15:07 07/27/17 16:17 07/27/17 15:07 Intake and Output: 07/27/17 07/27/17 06:59 18:59 Intake Total 1640 950 Output Total 750 120 Balance 890 830 - Medications Medications: Current Medications Acetaminophen (Tylenol 325mg Tab) 650 mg PO Q6 PRN PRN Reason: Fever >100.4 F Aspirin (Ecotrin) 81 mg PO DAILY [facility] Last Admin: 07/27/17 10:58 Dose: 81 mg Clopidogrel Bisulfate (Plavix) 75 mg PO DAILY [facility] Last Admin: 07/27/17 10:50 Dose: 75 mg Famotidine (Pepcid) 20 mg IVP DAILY [facility] Last Admin: 07/27/17 11:00 Dose: 20 mg Ferric Sodium Gluconate Complex (Ferrlecit) 125 mg IVPB DAILY [facility] Stop: 07/28/17 10:01 Last Admin: 07/27/17 09:45 Dose: 125 mg Finasteride (Proscar) 5 mg PO DAILY [facility] Last Admin: 07/27/17 11:12 Dose: 5 mg Heparin Sodium (Porcine) (Heparin) 5,000 units SC Q8 [facility] Last Admin: 07/27/17 13:16 Dose: 5,000 units Hydralazine HCl (Apresoline) 25 mg PO BID [facility] Last Admin: 07/27/17 17:35 Dose: Not Given Dextrose/Sodium Chloride (Dextrose 5%/0.9% Ns 1000 Ml) 1,000 mls @ 100 mls/hr IV .Q10H [facility] Last Admin: 07/26/17 22:09 Dose: 100 mls/hr Ceftriaxone Sodium 1 gm/ (Dextrose) 100 mls @ 100 mls/hr IVPB DAILY [facility] Last Admin: 07/27/17 09:46 Dose: 100 mls/hr Ampicillin 1 gm/ Dextrose 100 mls @ 100 mls/hr IVPB Q6H [facility] Last Admin: 07/27/17 16:16 Dose: 100 mls/hr Levothyroxine Sodium (Synthroid) 25 mcg PO DAILY@0630 [facility] Last Admin: 07/27/17 06:18 Dose: 25 mcg Metoprolol Tartrate (Lopressor) 25 mg PO BID [facility] Last Admin: 07/27/17 10:00 Dose: Not Given Rosuvastatin Calcium (Crestor) 10 mg PO HS [facility] Last Admin: 07/26/17 22:07 Dose: 10 mg Tamsulosin HCl (Flomax) 0.4 mg PO DAILY [facility] Last Admin: 07/27/17 10:57 Dose: 0.4 mg - Labs Labs: 07/27/17 05:52 07/27/17 05:52
[2017-07-27] MEDS: Dextrose 5%/0.9% NS 1,000 ML IV SCH (19:58)
[2017-07-28] MEDS: Dextrose 5%/0.9% NS 1,000 ML IV SCH ×4 (00:45→13:02)
--- NOTE | 2017-07-28 02:14 | CP.PCM.PN ---
Subjective - Date & Time of Evaluation Date of Evaluation: 07/27/17 Time of Evaluation: 19:30 - Subjective Subjective: Pt seen and examined, is improving, less tacycardic, no fever, no shortness of breath Objective - Vital Signs/Intake and Output Vital Signs (last 24 hours): Temp Pulse Resp BP Pulse Ox 98 F 112 H 20 97/55 L 92 L 07/27/17 23:05 07/27/17 23:05 07/27/17 23:05 07/27/17 23:05 07/27/17 23:05 Intake and Output: 07/27/17 07/28/17 18:59 05:59 Intake Total 950 800 Output Total 120 100 Balance 830 700 - Medications Medications: Current Medications Acetaminophen (Tylenol 325mg Tab) 650 mg PO Q6 PRN PRN Reason: Fever >100.4 F Aspirin (Ecotrin) 81 mg PO DAILY [facility] Last Admin: 07/27/17 10:58 Dose: 81 mg Clopidogrel Bisulfate (Plavix) 75 mg PO DAILY [facility] Last Admin: 07/27/17 10:50 Dose: 75 mg Famotidine (Pepcid) 20 mg IVP DAILY [facility] Last Admin: 07/27/17 11:00 Dose: 20 mg Ferric Sodium Gluconate Complex (Ferrlecit) 125 mg IVPB DAILY [facility] Stop: 07/28/17 10:01 Last Admin: 07/27/17 09:45 Dose: 125 mg Finasteride (Proscar) 5 mg PO DAILY [facility] Last Admin: 07/27/17 11:12 Dose: 5 mg Heparin Sodium (Porcine) (Heparin) 5,000 units SC Q8 [facility] Last Admin: 07/27/17 21:20 Dose: 5,000 units Hydralazine HCl (Apresoline) 25 mg PO BID [facility] Last Admin: 07/27/17 17:35 Dose: Not Given Dextrose/Sodium Chloride (Dextrose 5%/0.9% Ns 1000 Ml) 1,000 mls @ 100 mls/hr IV .Q10H [facility] Last Admin: 07/28/17 00:45 Dose: 100 mls/hr Ceftriaxone Sodium 1 gm/ (Dextrose) 100 mls @ 100 mls/hr IVPB DAILY [facility] Last Admin: 07/27/17 09:46 Dose: 100 mls/hr Ampicillin 1 gm/ Dextrose 100 mls @ 100 mls/hr IVPB Q6H [facility] Last Admin: 07/27/17 21:20 Dose: 100 mls/hr Levothyroxine Sodium (Synthroid) 25 mcg PO DAILY@0630 [facility] Last Admin: 07/27/17 06:18 Dose: 25 mcg Metoprolol Tartrate (Lopressor) 25 mg PO BID [facility] Last Admin: 07/27/17 17:36 Dose: 25 mg Rosuvastatin Calcium (Crestor) 10 mg PO HS [facility] Last Admin: 07/27/17 21:20 Dose: 10 mg Tamsulosin HCl (Flomax) 0.4 mg PO DAILY [facility] Last Admin: 07/27/17 10:57 Dose: 0.4 mg - Labs Labs: 07/27/17 05:52 07/27/17 05:52 - Constitutional Appears: No Acute Distress - Head Exam Head Exam: ATRAUMATIC, NORMAL INSPECTION, NORMOCEPHALIC - Eye Exam Eye Exam: EOMI, Normal appearance, PERRL Pupil Exam: NORMAL ACCOMODATION, PERRL - Respiratory Exam Respiratory Exam: Decreased Breath Sounds, Rales, Rhonchi - Cardiovascular Exam Cardiovascular Exam: REGULAR RHYTHM, +S1, +S2. absent: Murmur - GI/Abdominal Exam GI & Abdominal Exam: Soft, Normal Bowel Sounds. absent: Tenderness Assessment and Plan (1) Fever Status: Acute (2) Leukocytosis Status: Acute (3) UTI (urinary tract infection) Status: Acute - Assessment and Plan (Free Text) Plan: continue antibiotics monitor pt
--- NOTE | 2017-07-28 03:21 | PN ---
FOLLOWUP RENAL CONSULTATION DATE: LOCATION: The patient is located in room 651, bed B. HISTORY OF PRESENT ILLNESS: Mr. Cunningham is an 82-year-old elderly male with history of longstanding hypertension, hyperlipidemia, coronary artery disease, CHF, chronic kidney disease, gouty arthritis was admitted with chief complaints of altered mental status and low-grade fever and being treated for urosepsis. The patient was also found to have elevated BUN and creatinine. The patient is not in acute distress, following simple commands. No chest pain. No palpitation. PHYSICAL EXAMINATION: GENERAL: Mr. Cunningham is an 82-year-old elderly male moderately built, moderately nourished. Not in distress. VITAL SIGNS: As follows: Blood pressure 103/63, pulse 115, respirations 20, temperature 98.8 and saturation 93%. Height 6 feet 3 inches and weight is 157 pounds. HEENT: Pupils normal reactive to light and accommodation. Conjunctivae pink. Sclerae anicteric. Tongue is moist. Trachea is midline. LUNGS: Symmetric on both sides. Bilateral breath sounds present. No crackles. CARDIOVASCULAR SYSTEM: [place] at the fifth intercostal space, midclavicular line. S1 and S2 audible. No murmur or gallop. ABDOMEN: Normal in appearance. Soft, tympanic. No guarding. No rigidity. No hepatosplenomegaly. CENTRAL NERVOUS SYSTEM: The patient is alert, awake and oriented x2. Sensory and motor system is grossly within normal limits. EXTREMITIES: No cyanosis. No clubbing. 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 CURRENT MEDICATIONS: Includes as follows: Ampicillin 1 g IV q.6 hours, hydralazine 25 mg p.o. b.i.d., Rocephin 1 g daily, Crestor 10 mg at bedtime, D5 normal saline 100 mL per hour, aspirin 81 mg daily, Ferrlecit 125 mg daily, Flomax 0.4 mg daily, heparin 5000 units subq q.8 hours, Pepcid 20 mg daily, Plavix 75 mg daily, Proscar 5 mg p.o. daily, Synthroid 25 mcg daily and Tylenol. His I's and O's; as of yesterday intake is 1640 and output is 750 mL. In the last 12 hours intake is 950 mL and output is 120 mL. LABORATORY DATA: Include as follows: As of 07/27/2017, WBC 12.5, hemoglobin 9.2, hematocrit is 29.8 and platelets 328. PH 7.45, pCO2 27, pO2 108, bicarb is 21.7, saturation 97.2. Sodium 143, potassium 4.2, chloride 109, CO2 of 20, BUN 86 and creatinine 3.6. GFR is 20. Glucose is 131, calcium is 9.0. Urine culture is Klebsiella pneumonia and Enterococcus faecalis as of 07/24/2017 and blood culture x2 negative day #3 and also blood culture x2 negative day #1. ASSESSMENT: In summary, Mr. Cunningham is an 82-year-old elderly male with history of hypertension, coronary artery disease status post coronary artery bypass graft, hyperlipidemia, gouty arthritis, chronic kidney disease, anemia, being treated for urinary tract infection with increased BUN and creatinine and decrease urine output today. 1. Acute renal failure, on chronic kidney disease versus progression of the chronic kidney disease. 2. Urosepsis. 3. Hypertension. 4. Coronary artery disease. 5. Anemia secondary to chronic kidney disease. PLAN: Continue IV antibiotics as per ID recommendations and continue to monitor I's and O's and repeat CBC, CMP and CPK level in a.m. If renal function continue to deteriorate, may need renal replacement therapy also consult to check stool for the C. diff toxin. Hernan Peterson MD MTDDaryl
[2017-07-28] MEDS: AMPICILLIN IVPB SCH ×4 (04:12→21:29)
[2017-07-28] MEDS: DEXTROSE 5% IVPB SCH ×4 (04:12→21:29)
[2017-07-28] MEDS: WATER IVPB SCH ×4 (04:12→21:29)
[2017-07-28] MEDS: Levothyroxine 25 MCG TAB PO SCH (06:38)
[2017-07-28 08:12] LABS: POTASSIUM 4.6 mmol/L (3.6-5.2)
[2017-07-28 08:16] LABS: CALCIUM 8.4 mg/dl (8.6-10.4)
--- NOTE | 2017-07-28 09:58 | CARD ---
APPROVED REPORT EKG Measurement Heart [id number] <Conclusion> Sinus tachycardia with 1st degree AV block Rightward axis Marked ST abnormality, possible anterior subendocardial injury Abnormal ECG
--- NOTE | 2017-07-28 09:58 | CARD ---
APPROVED REPORT EKG Measurement Heart [id number] <Conclusion> Sinus tachycardia with 1st degree AV block Rightward axis Marked ST abnormality, possible anterolateral subendocardial injury Abnormal ECG
[2017-07-28] MEDS: Ferric Sodium Gluconat Complex 62.5 mg/5 ml Vial IVPB SCH (11:06)
--- NOTE | 2017-07-28 12:44 | CP.PCM.PN ---
Subjective - Date & Time of Evaluation Date of Evaluation: 07/28/17 Time of Evaluation: 10:00 - Subjective Subjective: 82 y/o M with hx of HTN, CKD, obstructive uropathy requring wise catheter, presenting with lethargy and fever from long term. + Troponin on admission "Forgetful" at baseline per long term. History limited by dementia. referred for ID eval and management + urine c/s for enterococcus and Klebs - Medical History PMH: Arthritis (OA, Gout), HTN CAD s/p CABG CVA HTN OA OBS Objective - Vital Signs/Intake and Output Vital Signs (last 24 hours): Temp Pulse Resp BP Pulse Ox 99 F 115 H 18 100/68 96 07/28/17 07:49 07/28/17 07:49 07/28/17 07:49 07/28/17 11:07 07/28/17 07:49 Intake and Output: 07/28/17 07/28/17 06:59 18:59 Intake Total Output Total Balance - Medications Medications: Current Medications Acetaminophen (Tylenol 325mg Tab) 650 mg PO Q6 PRN PRN Reason: Fever >100.4 F Aspirin (Ecotrin) 81 mg PO DAILY [facility] Last Admin: 07/28/17 11:06 Dose: 81 mg Clopidogrel Bisulfate (Plavix) 75 mg PO DAILY [facility] Last Admin: 07/28/17 11:06 Dose: 75 mg Famotidine (Pepcid) 20 mg IVP DAILY [facility] Last Admin: 07/28/17 11:06 Dose: 20 mg Finasteride (Proscar) 5 mg PO DAILY [facility] Last Admin: 07/28/17 11:06 Dose: 5 mg Heparin Sodium (Porcine) (Heparin) 5,000 units SC Q8 [facility] Last Admin: 07/28/17 06:39 Dose: 5,000 units Hydralazine HCl (Apresoline) 25 mg PO BID [facility] Last Admin: 07/28/17 11:07 Dose: 25 mg Dextrose/Sodium Chloride (Dextrose 5%/0.9% Ns 1000 Ml) 1,000 mls @ 100 mls/hr IV .Q10H [facility] Last Admin: 07/28/17 11:08 Dose: 100 mls/hr Ceftriaxone Sodium 1 gm/ (Dextrose) 100 mls @ 100 mls/hr IVPB DAILY [facility] Last Admin: 07/28/17 11:05 Dose: 100 mls/hr Ampicillin 1 gm/ Dextrose 100 mls @ 100 mls/hr IVPB Q6H [facility] Last Admin: 07/28/17 10:00 Dose: 100 mls/hr Levothyroxine Sodium (Synthroid) 25 mcg PO DAILY@0630 [facility] Last Admin: 07/28/17 06:38 Dose: 25 mcg Metoprolol Tartrate (Lopressor) 25 mg PO BID [facility] Last Admin: 07/28/17 11:07 Dose: 25 mg Rosuvastatin Calcium (Crestor) 10 mg PO HS [facility] Last Admin: 07/27/17 21:20 Dose: 10 mg Tamsulosin HCl (Flomax) 0.4 mg PO DAILY [facility] Last Admin: 07/28/17 11:06 Dose: 0.4 mg - Labs Labs: 07/27/17 05:52 07/28/17 07:50 - Constitutional Appears: Confused, Cachectic, Chronically Ill - Head Exam Head Exam: NORMOCEPHALIC - Eye Exam Eye Exam: PERRL. absent: Scleral icterus - ENT Exam ENT Exam: Mucous Membranes Dry - Neck Exam Neck Exam: absent: Lymphadenopathy - Respiratory Exam Respiratory Exam: Decreased Breath Sounds, Rhonchi - Cardiovascular Exam Cardiovascular Exam: REGULAR RHYTHM - GI/Abdominal Exam GI & Abdominal Exam: Distended, Soft - Rectal Exam Rectal Exam: Deferred - Exam Exam: NORMAL INSPECTION - Extremities Exam Extremities Exam: absent: Pedal Edema - Back Exam Back Exam: absent: CVA tenderness (L), CVA tenderness (R) - Neurological Exam Neurological Exam: Alert, Awake, Oriented x3 - Psychiatric Exam Psychiatric exam: Depressed - Skin Skin Exam: Dry Assessment and Plan (1) Fever Status: Acute (2) Leukocytosis Status: Acute (3) UTI (urinary tract infection) Status: Acute (4) Acute renal failure Status: Acute (5) Generalized weakness Status: Acute (6) Hyperkalemia Status: Acute (7) Troponin level elevated Status: Acute (8) UTI (urinary tract infection) due to Enterococcus Status: Acute (9) UTI (urinary tract infection) due to Enterococcus Status: Acute (10) UTI due to Klebsiella species Status: Acute (11) UTI due to Klebsiella species Status: Acute - Assessment and Plan (Free Text) Assessment: afebrile on IV antibiotics renal eval ongoig
--- NOTE | 2017-07-28 14:33 | CP.PCM.PN ---
Subjective - Date & Time of Evaluation Date of Evaluation: 07/28/17 Time of Evaluation: 14:31 - Subjective Subjective: pt is seen and examined, follow up consult is dictated #[id number] renal function is deteriorating c/w ivf and iv abx pt may benefit from renal replacement therapy change ivf to d5w with [id number] Objective - Vital Signs/Intake and Output Vital Signs (last 24 hours): Temp Pulse Resp BP Pulse Ox 99 F 115 H 18 100/68 96 07/28/17 07:49 07/28/17 07:49 07/28/17 07:49 07/28/17 11:07 07/28/17 07:49 Intake and Output: 07/28/17 07/28/17 06:59 18:59 Intake Total Output Total Balance - Medications Medications: Current Medications Acetaminophen (Tylenol 325mg Tab) 650 mg PO Q6 PRN PRN Reason: Fever >100.4 F Aspirin (Ecotrin) 81 mg PO DAILY [facility] Last Admin: 07/28/17 11:06 Dose: 81 mg Clopidogrel Bisulfate (Plavix) 75 mg PO DAILY [facility] Last Admin: 07/28/17 11:06 Dose: 75 mg Famotidine (Pepcid) 20 mg IVP DAILY [facility] Last Admin: 07/28/17 11:06 Dose: 20 mg Finasteride (Proscar) 5 mg PO DAILY [facility] Last Admin: 07/28/17 11:06 Dose: 5 mg Heparin Sodium (Porcine) (Heparin) 5,000 units SC Q8 [facility] Last Admin: 07/28/17 06:39 Dose: 5,000 units Hydralazine HCl (Apresoline) 25 mg PO BID [facility] Last Admin: 07/28/17 11:07 Dose: 25 mg Dextrose/Sodium Chloride (Dextrose 5%/0.9% Ns 1000 Ml) 1,000 mls @ 100 mls/hr IV .Q10H [facility] Last Admin: 07/28/17 13:02 Dose: Not Given Ceftriaxone Sodium 1 gm/ (Dextrose) 100 mls @ 100 mls/hr IVPB DAILY [facility] Last Admin: 07/28/17 11:05 Dose: 100 mls/hr Ampicillin 1 gm/ Dextrose 100 mls @ 100 mls/hr IVPB Q6H [facility] Last Admin: 07/28/17 10:00 Dose: 100 mls/hr Levothyroxine Sodium (Synthroid) 25 mcg PO DAILY@0630 [facility] Last Admin: 07/28/17 06:38 Dose: 25 mcg Metoprolol Tartrate (Lopressor) 25 mg PO BID [facility] Last Admin: 07/28/17 11:07 Dose: 25 mg Rosuvastatin Calcium (Crestor) 10 mg PO HS [facility] Last Admin: 07/27/17 21:20 Dose: 10 mg Tamsulosin HCl (Flomax) 0.4 mg PO DAILY [facility] Last Admin: 07/28/17 11:06 Dose: 0.4 mg - Labs Labs: 07/27/17 05:52 07/28/17 07:50
--- NOTE | 2017-07-28 21:14 | CP.PCM.PN ---
Subjective - Date & Time of Evaluation Date of Evaluation: 07/28/17 Time of Evaluation: 19:00 - Subjective Subjective: pt seen and examined renal function is deteriorating c/w ivf and iv antibiotics Objective - Vital Signs/Intake and Output Vital Signs (last 24 hours): Temp Pulse Resp BP Pulse Ox 97.4 F L 106 H 20 99/65 L 94 L 07/28/17 15:17 07/28/17 15:17 07/28/17 15:17 07/28/17 17:49 07/28/17 15:17 - Medications Medications: Current Medications Acetaminophen (Tylenol 325mg Tab) 650 mg PO Q6 PRN PRN Reason: Fever >100.4 F Aspirin (Ecotrin) 81 mg PO DAILY [facility] Last Admin: 07/28/17 11:06 Dose: 81 mg Clopidogrel Bisulfate (Plavix) 75 mg PO DAILY [facility] Last Admin: 07/28/17 11:06 Dose: 75 mg Famotidine (Pepcid) 20 mg IVP DAILY [facility] Last Admin: 07/28/17 11:06 Dose: 20 mg Finasteride (Proscar) 5 mg PO DAILY [facility] Last Admin: 07/28/17 11:06 Dose: 5 mg Heparin Sodium (Porcine) (Heparin) 5,000 units SC Q8 [facility] Last Admin: 07/28/17 06:39 Dose: 5,000 units Hydralazine HCl (Apresoline) 25 mg PO BID [facility] Last Admin: 07/28/17 19:24 Dose: Not Given Dextrose/Sodium Chloride (Dextrose 5%/0.9% Ns 1000 Ml) 1,000 mls @ 100 mls/hr IV .Q10H [facility] Last Admin: 07/28/17 13:02 Dose: Not Given Ceftriaxone Sodium 1 gm/ (Dextrose) 100 mls @ 100 mls/hr IVPB DAILY [facility] Last Admin: 07/28/17 11:05 Dose: 100 mls/hr Ampicillin 1 gm/ Dextrose 100 mls @ 100 mls/hr IVPB Q6H [facility] Last Admin: 07/28/17 15:03 Dose: 100 mls/hr Levothyroxine Sodium (Synthroid) 25 mcg PO DAILY@0630 [facility] Last Admin: 07/28/17 06:38 Dose: 25 mcg Metoprolol Tartrate (Lopressor) 25 mg PO BID [facility] Last Admin: 07/28/17 17:49 Dose: 25 mg Rosuvastatin Calcium (Crestor) 10 mg PO [facility] Last Admin: 07/27/17 21:20 Dose: 10 mg Tamsulosin HCl (Flomax) 0.4 mg PO DAILY [facility] Last Admin: 07/28/17 11:06 Dose: 0.4 mg - Labs Labs: 07/27/17 05:52 07/28/17 07:50 - Constitutional Appears: No Acute Distress, Chronically Ill (023.) - Head Exam Head Exam: ATRAUMATIC (930), NORMAL INSPECTION, NORMOCEPHALIC - Eye Exam Eye Exam: EOMI, Normal appearance, PERRL Pupil Exam: NORMAL ACCOMODATION, PERRL - Cardiovascular Exam Cardiovascular Exam: REGULAR RHYTHM, +S1, +S2. absent: Murmur - GI/Abdominal Exam GI & Abdominal Exam: Soft, Normal Bowel Sounds. absent: Tenderness Assessment and Plan (1) Fever Status: Acute (2) Leukocytosis Status: Acute (3) UTI (urinary tract infection) Status: Acute
[2017-07-28] MEDS: Sodium Bicarbonate 8.4% 150 MEQ in Dextrose 5% In Water 1,000 ML IV SCH (23:59)
[2017-07-29] MEDS: WATER IVPB SCH ×2 (03:38→10:00)
[2017-07-29] MEDS: AMPICILLIN IVPB SCH ×2 (03:38→10:00)
[2017-07-29] MEDS: DEXTROSE 5% IVPB SCH ×2 (03:38→10:00)
[2017-07-29] MEDS: Levothyroxine 25 MCG TAB PO SCH (05:48)
[2017-07-29 07:46] LABS: GRANULAR CAST 17 /lpf (0-1); RBC URINE 353 /hpf (0-3); URINE BACTERIA FEW (<OCC); URINE BILIRUBIN NEGATIVE (NEGATIVE); URINE BLOOD 3+ (NEGATIVE); URINE COLOR Amber (YELLOW); URINE GLUCOSE (UA) NORMAL (Normal); URINE KETONE NEGATIVE (NEGATIVE); URINE LEUKOCYTE ESTERASE 3+ Leu/uL (Negative); URINE PROTEIN 2+ mg/dL (NEGATIVE); URINE UROBILINOGEN NORMAL mg/dL (0.2-1.0); WBC URINE 112 /hpf (0-5)
[2017-07-29 08:27] LABS: POTASSIUM 5.1 mmol/L (3.6-5.2)
[2017-07-29 08:28] LABS: CALCIUM 7.8 mg/dl (8.6-10.4)
--- NOTE | 2017-07-29 09:11 | PN ---
DATE: FOLLOWUP RENAL CONSULTATION The patient is located in room 651, bed B. REQUESTED BY: Daniel Coyle MD REASON FOR FOLLOWUP: Acute renal failure on chronic kidney disease. SUBJECTIVE: Mr. Cunningham is an 82-year-old elderly male with past medical history significant for hypertension, hyperlipidemia, CHF status post rhabdomyolysis, chronic kidney disease stage IV, history of hyperkalemia, metabolic acidosis, and severe tophaceous gout, who was recently discharged from the [facility] to [facility]. Now, the patient was sent back from the shelter with lethargy, decreased p.o. intake, and increased BUN and creatinine and also low-grade fever. The patient is on gentle IV hydration and IV antibiotics and urine culture is positive for Klebsiella pneumonia and Enterococcus faecalis. The patient is not in acute distress. The patient is drowsy, arousable, and following simple commands. PHYSICAL EXAMINATION: GENERAL: Mr. Cunningham is an 82-year-old elderly male very cachectic, not in distress. VITAL SIGNS: Blood pressure 119/69, pulse 109, respirations 20, temperature 99, saturations 96%, height 6 feet 3 inches, and weight is 157 pounds. HEENT: Pupils are normal and reactive to light accommodation. Conjunctivae pink. Sclerae anicteric. Tongue is moist. Trachea is midline. LUNGS: Symmetric on both sides. Bilateral breath sounds present. No crackles. CARDIOVASCULAR: [place] at the fifth intercostal space, midclavicular line. S1 and S2 audible. No murmur. No gallops. ABDOMEN: Normal in appearance, soft, and tympanic. No guarding. No rigidity. No hepatosplenomegaly. The patient has a mid sternal scar present from the previous CABG. CENTRAL NERVOUS SYSTEM: The patient is arousable and following simple commands. EXTREMITIES: No cyanosis. No clubbing. No edema. The patient has multiple tophi in both upper and lower extremities present. CURRENT MEDICATIONS: Include as follows: Ampicillin 1 g IV piggyback q. 6 hours, hydralazine 25 mg p.o. b.i.d., ceftriaxone 1 g daily, Crestor 10 mg at bedtime, IV fluids, D5 normal saline at 100 mL per hour, aspirin 81 mg daily, Ferrlecit 125 mg IV daily, Flomax 0.4 mg daily, subcutaneous heparin 5000 q. 8 hours, metoprolol 25 mg b.i.d., Norvasc 10 mg daily, Pepcid 20 mg daily, Plavix 75 mg daily, Proscar 5 mg daily, levothyroxine 25 mcg daily, and Tylenol. LABORATORY DATA: Include as follows, as of 07/26/2017, WBC is 9.2, hemoglobin is 8.7, hematocrit is 27.1, and platelets 302. Sodium 141, potassium 4.2, chloride 109, CO2 is 19, BUN is 86, creatinine is 3, glucose is 127, and calcium is 8.6. Lactic acid is 1.8 and his other laboratory data, blood cultures times 2 negative day #2 and urine culture is positive for Klebsiella pneumonia and Enterococcus faecalis. ASSESSMENT: In summary, Mr. Cunningham is an 82-year-old elderly -[place]rist[place] male with a history of hypertension, hyperlipidemia, congestive heart failure, coronary artery disease status post coronary artery bypass graft, tophaceous gout, chronic kidney disease stage IV, and anemia, who was admitted with weakness, decreased p.o. intake, elevated BUN and creatinine, and fever. 1. Acute renal failure on chronic kidney disease. 2. Urinary tract infection. 3. Anemia. 4. Hypertension. 5. Dehydration. 6. Tophaceous gout. 7. Coronary artery disease. PLAN: Continue IV fluids and continue to monitor BMP and add Epogen 10,000 units 3 times a week and add Uloric 40 mg p.o. daily. Continue IV antibiotics as per ID recommendation. We will follow with you. Thank you for allowing me to participate in our patient's care. Hernan Peterson MD
--- NOTE | 2017-07-29 09:16 | PN ---
DATE: LOCATION: The patient is located in room 661, bed B. REQUESTED BY: Daniel Coyle MD REASON FOR FOLLOWUP: Acute renal failure on chronic kidney disease, for further evaluation. SUBJECTIVE: Mr. Cunningham is an 82-year-old elderly male with a past medical history significant for longstanding hypertension, gout, chronic kidney disease, hyperkalemia, metabolic acidosis, CHF, coronary artery disease status post CABG, who was admitted to [facility] on 05/27/2017 for rhabdomyolysis, acute renal failure; subsequently, patient was discharged to shelter on 06/06, and now patient was sent from the shelter with altered mental status and shortness of breath and fever. The patient is being treated for urosepsis. Renal function is deteriorating since admission, and urine output is now slowly decreasing. The patient is not in distress. The patient is arousable and following simple commands. PHYSICAL EXAMINATION: GENERAL: Mr. Cunningham is an 82-year-old elderly male, on face mask, not in distress. VITAL SIGNS: His vital signs are as follows, blood pressure 99/65, pulse 106, respirations 20, temperature 97.4, saturation 94%. Height 6 feet 3 inches and weight is 157 pounds. HEENT: Pupils normal, reactive to light and accommodation. Conjunctivae pink. Sclerae anicteric. Tongue is moist. Trachea is midline. CARDIOPULMONARY: [place] at the fifth intercostal space, midclavicular line. S1 and S2 audible. No murmur, no gallop. The patient has a midsternal scar present from the previous CABG. LUNGS: Symmetric on both sides. Bilateral breath sounds present. No crackles. ABDOMEN: Normal in appearance. Soft, tympanic. No guarding. No rigidity. No hepatosplenomegaly. CENTRAL NERVOUS SYSTEM: The patient is drowsy, arousable, following simple commands. EXTREMITIES: No cyanosis. No clubbing. No edema. CURRENT MEDICATIONS: Includes as follows: Ampicillin 1 g q. 6 hours, hydralazine 25 mg p.o. b.i.d., Rocephin 1 g daily, Crestor 10 mg at bedtime, IV fluids of D5 normal saline at 100 mL per hour, aspirin 81 mg daily, Flomax 0.4 mg daily, subcutaneous heparin 5000 q. 8 hours, metoprolol 25 mg p.o. b.i.d., Pepcid 20 mg IV daily, Plavix 75 mg daily, Proscar 5 mg daily, levothyroxine 25 mcg p.o. daily, and Tylenol. LABORATORY DATA: Include as follows: Sodium 141, potassium 4.6, chloride 110, CO2 of 14, BUN 101, and creatinine 4.5. Glucose is 126, calcium 8.4, and CPK 451. Chest x-ray as of 07/27/2017; biapical pleural thickening and [id number] pulmonary venous congestion and median sternotomy wires which appears discontinuous, cardiomegaly, ectatic aorta. Urine culture as of 07/24/2017; Klebsiella pneumonia and Enterococcus faecalis and blood culture x2 negative, day #2 as of 07/26/2017; and as of 07/24/2017, blood culture x2 negative, day #4. ASSESSMENT AND PLAN: In summary again, Mr. Rolly Cunningham is an 82-year-old elderly -Cyp[place] male with a history of hypertension, coronary artery disease status post coronary artery bypass grafting, hyperlipidemia, chronic kidney disease, tophaceous gout, was admitted from the shelter with low-grade fever and increased BUN and creatinine and for further evaluation. The patient is being treated for possible urosepsis. 1. Acute renal failure on chronic kidney disease. 2. Metabolic acidosis secondary to worsening renal function. 3. Mild congestive heart failure. 4. Urosepsis. Continue IV antibiotics as per the primary care physician and also change IV fluids to D5W with 3 amps of bicarbonate at 70 mL/hour, and patient will need renal replacement therapy with worsening renal function and developing congestive heart failure. Overall prognosis is very poor. If the patient and family agrees, we will consider hemodialysis in a.m. considering his overall poor prognosis. We will follow with you. Thank you for allowing me to participate in your patient's care. Hernan Peterson MD
--- NOTE | 2017-07-29 11:04 | CP.PCM.PN ---
Subjective - Date & Time of Evaluation Date of Evaluation: 07/29/17 Time of Evaluation: 08:00 - Subjective Subjective: increasing lethargy now on NRBM weak and bedridden' renakl function worse Objective - Vital Signs/Intake and Output Vital Signs (last 24 hours): Temp Pulse Resp BP Pulse Ox 97.2 F L 96 H 20 92/58 L 92 L 07/29/17 08:43 07/29/17 08:43 07/29/17 08:43 07/29/17 10:53 07/29/17 08:43 Intake and Output: 07/29/17 07/29/17 06:59 18:59 Intake Total 1310 Output Total 75 Balance 1235 - Medications Medications: Current Medications Acetaminophen (Tylenol 325mg Tab) 650 mg PO Q6 PRN PRN Reason: Fever >100.4 F Aspirin (Ecotrin) 81 mg PO DAILY [facility] Last Admin: 07/29/17 10:52 Dose: 81 mg Clopidogrel Bisulfate (Plavix) 75 mg PO DAILY [facility] Last Admin: 07/29/17 10:52 Dose: 75 mg Famotidine (Pepcid) 20 mg IVP DAILY [facility] Last Admin: 07/29/17 10:52 Dose: 20 mg Finasteride (Proscar) 5 mg PO DAILY [facility] Last Admin: 07/28/17 11:06 Dose: 5 mg Heparin Sodium (Porcine) (Heparin) 5,000 units SC Q8 [facility] Last Admin: 07/29/17 05:48 Dose: 5,000 units Hydralazine HCl (Apresoline) 25 mg PO BID [facility] Last Admin: 07/29/17 10:52 Dose: 25 mg Ceftriaxone Sodium 1 gm/ (Dextrose) 100 mls @ 100 mls/hr IVPB DAILY [facility] Last Admin: 07/29/17 10:43 Dose: 100 mls/hr Ampicillin 1 gm/ Dextrose 100 mls @ 100 mls/hr IVPB Q6H [facility] Last Admin: 07/29/17 10:00 Dose: 100 mls/hr Sodium Bicarbonate 150 meq/ (Dextrose) 1,150 mls @ 70 mls/hr IV .[id number] [facility] Last Admin: 07/28/17 23:59 Dose: 70 mls/hr Levothyroxine Sodium (Synthroid) 25 mcg PO DAILY@0630 [facility] Last Admin: 07/29/17 05:48 Dose: 25 mcg Metoprolol Tartrate (Lopressor) 25 mg PO BID [facility] Last Admin: 07/29/17 10:53 Dose: 25 mg Rosuvastatin Calcium (Crestor) 10 mg PO HS [facility] Last Admin: 07/28/17 21:29 Dose: 10 mg Tamsulosin HCl (Flomax) 0.4 mg PO DAILY [facility] Last Admin: 07/29/17 10:52 Dose: 0.4 mg - Labs Labs: 07/27/17 05:52 07/29/17 07:36 - Constitutional Appears: Confused, Cachectic, Chronically Ill - Head Exam Head Exam: NORMOCEPHALIC - Eye Exam Eye Exam: PERRL. absent: Scleral icterus - ENT Exam ENT Exam: Mucous Membranes Dry - Neck Exam Neck Exam: absent: Lymphadenopathy - Respiratory Exam Respiratory Exam: Decreased Breath Sounds, Rhonchi - Cardiovascular Exam Cardiovascular Exam: REGULAR RHYTHM - GI/Abdominal Exam GI & Abdominal Exam: Distended, Soft - Rectal Exam Rectal Exam: Deferred - Exam Exam: NORMAL INSPECTION - Extremities Exam Extremities Exam: Pedal Edema - Back Exam Back Exam: absent: CVA tenderness (L), CVA tenderness (R) - Neurological Exam Neurological Exam: Altered Assessment and Plan (1) Fever Status: Acute (2) Leukocytosis Status: Acute (3) UTI (urinary tract infection) Status: Acute (4) Acute renal failure Status: Acute (5) Generalized weakness Status: Acute (6) Hyperkalemia Status: Acute (7) Troponin level elevated Status: Acute (8) UTI (urinary tract infection) due to Enterococcus Status: Acute (9) UTI (urinary tract infection) due to Enterococcus Status: Acute (10) UTI due to Klebsiella species Status: Acute (11) UTI due to Klebsiella species Status: Acute - Assessment and Plan (Free Text) Assessment: resp failure chf copd esrd uti CAD poor prognosis
--- NOTE | 2017-07-29 12:17 | CP.PCM.PN ---
Subjective - Date & Time of Evaluation Date of Evaluation: 07/29/17 Time of Evaluation: 12:15 - Subjective Subjective: pt is seen and examined, follow up consult is dictated #[id number] pt will benefit from hd Objective - Vital Signs/Intake and Output Vital Signs (last 24 hours): Temp Pulse Resp BP Pulse Ox 97.2 F L 96 H 20 92/58 L 92 L 07/29/17 08:43 07/29/17 08:43 07/29/17 08:43 07/29/17 10:53 07/29/17 08:43 Intake and Output: 07/29/17 07/29/17 06:59 18:59 Intake Total 1310 Output Total 75 Balance 1235 - Medications Medications: Current Medications Acetaminophen (Tylenol 325mg Tab) 650 mg PO Q6 PRN PRN Reason: Fever >100.4 F Aspirin (Ecotrin) 81 mg PO DAILY [facility] Last Admin: 07/29/17 10:52 Dose: 81 mg Clopidogrel Bisulfate (Plavix) 75 mg PO DAILY [facility] Last Admin: 07/29/17 10:52 Dose: 75 mg Famotidine (Pepcid) 20 mg IVP DAILY [facility] Last Admin: 07/29/17 10:52 Dose: 20 mg Finasteride (Proscar) 5 mg PO DAILY [facility] Last Admin: 07/28/17 11:06 Dose: 5 mg Heparin Sodium (Porcine) (Heparin) 5,000 units SC Q8 [facility] Last Admin: 07/29/17 05:48 Dose: 5,000 units Hydralazine HCl (Apresoline) 25 mg PO BID [facility] Last Admin: 07/29/17 10:52 Dose: 25 mg Ceftriaxone Sodium 1 gm/ (Dextrose) 100 mls @ 100 mls/hr IVPB DAILY [facility] Last Admin: 07/29/17 10:43 Dose: 100 mls/hr Ampicillin 1 gm/ Dextrose 100 mls @ 100 mls/hr IVPB Q6H [facility] Last Admin: 07/29/17 10:00 Dose: 100 mls/hr Sodium Bicarbonate 150 meq/ (Dextrose) 1,150 mls @ 70 mls/hr IV .[id number] [facility] Last Admin: 07/28/17 23:59 Dose: 70 mls/hr Levothyroxine Sodium (Synthroid) 25 mcg PO DAILY@0630 [facility] Last Admin: 07/29/17 05:48 Dose: 25 mcg Metoprolol Tartrate (Lopressor) 25 mg PO BID [facility] Last Admin: 07/29/17 10:53 Dose: 25 mg Rosuvastatin Calcium (Crestor) 10 mg PO HS [facility] Last Admin: 07/28/17 21:29 Dose: 10 mg Tamsulosin HCl (Flomax) 0.4 mg PO DAILY [facility] Last Admin: 07/29/17 10:52 Dose: 0.4 mg - Labs Labs: 07/27/17 05:52 07/29/17 07:36
[2017-07-29] MEDS: Ciprofloxacin 200mg/100ml D5W 100 ML IVPB SCH (14:27)
--- NOTE | 2017-07-29 16:11 | CP.PCM.PN ---
Subjective - Date & Time of Evaluation Date of Evaluation: 07/29/17 Time of Evaluation: 16:10 - Subjective Subjective: more awake.vital noted Objective - Vital Signs/Intake and Output Vital Signs (last 24 hours): Temp Pulse Resp BP Pulse Ox 97.5 F L 78 20 94/57 L 97 07/29/17 15:36 07/29/17 15:36 07/29/17 15:36 07/29/17 15:36 07/29/17 15:36 Intake and Output: 07/29/17 07/29/17 06:59 18:59 Intake Total 1310 Output Total 75 Balance 1235 - Medications Medications: Current Medications Acetaminophen (Tylenol 325mg Tab) 650 mg PO Q6 PRN PRN Reason: Fever >100.4 F Aspirin (Ecotrin) 81 mg PO DAILY [facility] Last Admin: 07/29/17 10:52 Dose: 81 mg Clopidogrel Bisulfate (Plavix) 75 mg PO DAILY [facility] Last Admin: 07/29/17 10:52 Dose: 75 mg Famotidine (Pepcid) 20 mg IVP DAILY [facility] Last Admin: 07/29/17 10:52 Dose: 20 mg Finasteride (Proscar) 5 mg PO DAILY [facility] Last Admin: 07/28/17 11:06 Dose: 5 mg Heparin Sodium (Porcine) (Heparin) 5,000 units SC Q8 [facility] Last Admin: 07/29/17 14:27 Dose: 5,000 units Hydralazine HCl (Apresoline) 25 mg PO BID [facility] Last Admin: 07/29/17 10:52 Dose: 25 mg Sodium Bicarbonate 150 meq/ (Dextrose) 1,150 mls @ 70 mls/hr IV .[id number] [facility] Last Admin: 07/28/17 23:59 Dose: 70 mls/hr Ciprofloxacin (Cipro 200mg/100ml D5w) 100 mls @ 67 mls/hr IVPB Q12H [facility] Last Admin: 07/29/17 14:27 Dose: 67 mls/hr Levothyroxine Sodium (Synthroid) 25 mcg PO DAILY@0630 [facility] Last Admin: 07/29/17 05:48 Dose: 25 mcg Metoprolol Tartrate (Lopressor) 25 mg PO BID [facility] Last Admin: 07/29/17 10:53 Dose: 25 mg Rosuvastatin Calcium (Crestor) 10 mg PO HS [facility] Last Admin: 07/28/17 21:29 Dose: 10 mg Tamsulosin HCl (Flomax) 0.4 mg PO DAILY [facility] Last Admin: 07/29/17 10:52 Dose: 0.4 mg - Labs Labs: 07/27/17 05:52 07/29/17 11:46 - Constitutional Appears: No Acute Distress, Chronically Ill - Head Exam Head Exam: NORMOCEPHALIC - Respiratory Exam Respiratory Exam: Clear to Ausculation Bilateral - Cardiovascular Exam Cardiovascular Exam: REGULAR RHYTHM - GI/Abdominal Exam GI & Abdominal Exam: Soft Assessment and Plan - Assessment and Plan (Free Text) Assessment: sepsis,renal failure. cad
[2017-07-29 17:12] LABS: RBC URINE 75 /hpf (0-3); URINE BACTERIA FEW (<OCC); URINE BILIRUBIN NEGATIVE (NEGATIVE); URINE BLOOD 3+ (NEGATIVE); URINE GLUCOSE (UA) NORMAL (Normal); URINE KETONE NEGATIVE (NEGATIVE); URINE LEUKOCYTE ESTERASE 3+ Leu/uL (Negative); URINE PROTEIN 2+ mg/dL (NEGATIVE); URINE UROBILINOGEN NORMAL mg/dL (0.2-1.0); WBC URINE 46 /hpf (0-5)
[2017-07-29 17:20] LABS: URINE COLOR YELLOW (YELLOW)
[2017-07-29] MEDS: Sodium Bicarbonate 8.4% 150 MEQ in Dextrose 5% In Water 1,000 ML IV SCH (21:06)
--- NOTE | 2017-07-29 22:39 | CP.PCM.PN ---
Subjective - Date & Time of Evaluation Date of Evaluation: 07/29/17 Time of Evaluation: 19:00 - Subjective Subjective: Pt seen and examined at bedside, he looks sick, further weak, his B.P is low ( in mid 90's) I D/c his norvasc, UA is still positive , b/l leg ulcers, pt is for antibiotics, urology and Id eval Objective - Vital Signs/Intake and Output Vital Signs (last 24 hours): Temp Pulse Resp BP Pulse Ox 97.5 F L 78 20 94/57 L 97 07/29/17 15:36 07/29/17 15:36 07/29/17 15:36 07/29/17 17:38 07/29/17 15:36 Intake and Output: 07/29/17 07/30/17 18:59 06:59 Output Total 100 Balance -100 - Medications Medications: Current Medications Acetaminophen (Tylenol 325mg Tab) 650 mg PO Q6 PRN PRN Reason: Fever >100.4 F Aspirin (Ecotrin) 81 mg PO DAILY [facility] Last Admin: 07/29/17 10:52 Dose: 81 mg Clopidogrel Bisulfate (Plavix) 75 mg PO DAILY [facility] Last Admin: 07/29/17 10:52 Dose: 75 mg Famotidine (Pepcid) 20 mg IVP DAILY [facility] Last Admin: 07/29/17 10:52 Dose: 20 mg Finasteride (Proscar) 5 mg PO DAILY [facility] Last Admin: 07/28/17 11:06 Dose: 5 mg Heparin Sodium (Porcine) (Heparin) 5,000 units SC Q8 [facility] Last Admin: 07/29/17 21:05 Dose: 5,000 units Hydralazine HCl (Apresoline) 25 mg PO BID [facility] Last Admin: 07/29/17 17:38 Dose: Not Given Sodium Bicarbonate 150 meq/ (Dextrose) 1,150 mls @ 70 mls/hr IV .[id number] [facility] Last Admin: 07/29/17 21:06 Dose: 70 mls/hr Ciprofloxacin (Cipro 200mg/100ml D5w) 100 mls @ 67 mls/hr IVPB Q12H [facility] Last Admin: 07/29/17 14:27 Dose: 67 mls/hr Levothyroxine Sodium (Synthroid) 25 mcg PO DAILY@0630 [facility] Last Admin: 07/29/17 05:48 Dose: 25 mcg Metoprolol Tartrate (Lopressor) 25 mg PO BID [facility] Last Admin: 07/29/17 17:38 Dose: Not Given Rosuvastatin Calcium (Crestor) 10 mg PO HS [facility] Last Admin: 07/29/17 21:03 Dose: 10 mg Tamsulosin HCl (Flomax) 0.4 mg PO DAILY [facility] Last Admin: 07/29/17 10:52 Dose: 0.4 mg - Labs Labs: 07/27/17 05:52 07/29/17 11:46 - Constitutional Appears: No Acute Distress - Head Exam Head Exam: ATRAUMATIC, NORMAL INSPECTION, NORMOCEPHALIC - Eye Exam Eye Exam: EOMI, Normal appearance, PERRL Pupil Exam: NORMAL ACCOMODATION, PERRL - Respiratory Exam Respiratory Exam: Clear to Ausculation Bilateral, NORMAL BREATHING PATTERN - Cardiovascular Exam Cardiovascular Exam: REGULAR RHYTHM, +S1, +S2. absent: Murmur - GI/Abdominal Exam GI & Abdominal Exam: Soft, Normal Bowel Sounds. absent: Tenderness - Neurological Exam Neurological Exam: Alert, Awake, CN II-XII Intact, Normal Gait, Oriented x3 - Skin Skin Exam: Erythema, Rash, Vesicles Additional comments: b/l leg ulcers Assessment and Plan (1) Fever Status: Acute (2) Leukocytosis Status: Acute (3) UTI (urinary tract infection) Status: Acute (4) Leg ulcer Status: Acute - Assessment and Plan (Free Text) Plan: antibiotics, urology and Id eval
[2017-07-30] MEDS: Ciprofloxacin 200mg/100ml D5W 100 ML IVPB SCH ×2 (01:39→14:00)
--- NOTE | 2017-07-30 01:48 | CON ---
FOLLOWUP RENAL CONSULTATION LOCATION: The patient is located in room #651, bed #B. REQUESTED BY: Daniel Coyle MD REASON FOR FOLLOWUP: Acute renal failure on chronic kidney disease. HISTORY OF PRESENT ILLNESS: Mr. Cunningham is an 82-year-old elderly -[place] male with past medical history significant for longstanding hypertension, chronic kidney disease, tophaceous gout, coronary artery disease, CHF status post CABG, and anemia, who was recently transferred to subacute rehab on 06/06/2017 for deconditioning and he had a fall, and now the patient was admitted to the long term with a chief complaint of drowsiness and decreased p.o. intake and also fever, and the patient was found to have urosepsis and being treated for urosepsis with Rocephin and ampicillin. Initially, the patient was admitted with a serum creatinine of 3.7 and with hydration, serum creatinine decreased to 3.0. Subsequently, his creatinine starts improving since the patient was started on IV antibiotics. Case discussed with Dr. Cantu for possible interstitial nephritis, worsening renal function and now BUN and creatinine 115/4.8. The patient's family is thinking about the dialysis. The patient is feeling much better today, not in distress, responding appropriately. Denies any chest pain or palpitations. Denies any fever or cough. No abdominal pain. No nausea, vomiting or diarrhea. PHYSICAL EXAMINATION: VITAL SIGNS: This morning as follows; blood pressure 92/58, pulse 96, respirations 20, temperature 97.2 and saturation 92%. Height 6 feet 3 inches and weight is 157 pounds. GENERAL: He is an 82-year-old elderly male moderately-built, moderately-nourished, not in distress. HEENT: Pupils normal and reactive to light and accommodation. Conjunctivae pink. Sclerae anicteric. Tongue is moist. Trachea is midline. LUNGS: Symmetrical on both sides. Bilateral breath sounds present. Bilateral basilar crackles present. CARDIOVASCULAR: [place] at the fifth intercostal space, midclavicular line. S1 and S2 audible. No murmur or gallop. ABDOMEN: Normal in appearance, soft, and tympanic. No guarding. No rigidity. No hepatosplenomegaly. CENTRAL NERVOUS SYSTEM: The patient is alert, awake, and oriented x2 to x3. Sensory and motor system is grossly within normal limits. EXTREMITIES: No cyanosis, no clubbing, no edema. The patient has tophi both upper and lower extremities on multiple joints. CURRENT MEDICATIONS: Include as follows; hydralazine 25 mg p.o. b.i.d., Cipro 200 mg q.12 hours. Rocephin and ampicillin were discontinued. Crestor 10 mg at bedtime, aspirin 81 mg daily, Flomax 0.4 mg p.o. daily, heparin 5000 units subcu q.8 hours, metoprolol 25 mg p.o. b.i.d., Pepcid 20 mg IV daily, Plavix 75 mg daily, sodium bicarbonate drip at 70 mL per hour, levothyroxine 25 mcg p.o. daily and Tylenol. LABORATORY DATA: Include as follows, as of 07/29/2017; sodium 139, potassium 5.1, chloride of 106, CO2 of 15, anion gap is 18, BUN is 115, creatinine 4.8, glucose 123 and calcium 7.8. Urinalysis; selvin color, hazy, pH 5, specific gravity of 1.020, protein 2+, glucose normal, ketones negative, blood 3+, nitrites negative, bilirubin negative, urobilinogen normal, leukocyte esterase 3+, wbc 112, rbc 353, bacteria is few, granular cast of 17. On 24-hour urine collection, urine volume is 125 mL, urine creatinine is 192.6 mg, creatinine clearance is 2 mL, urine protein is 47.5. Blood culture x2 negative day #3 as of 07/26/2017 and as of 07/24/2017, urine culture positive for Klebsiella pneumonia and Enterococcus faecalis and both are sensitive to Cipro. His intake and output, intake is 1310 and output is 75 mL. As of 07/28/2017; intake is 1750 and output is 320. ASSESSMENT: In summary, Mr. Cunningham is an 82-year-old elderly -[place] male with a history of hypertension, coronary artery disease, status post coronary artery bypass graft, hyperlipidemia, congestive heart failure, chronic kidney disease, tophaceous gout, was admitted with altered mental status and decreased p.o. intake and increased BUN and creatinine and found to have cloudy urine and urine culture positive for Klebsiella pneumonia and Enterococcus faecalis. Initially, given vancomycin and started on Rocephin and ampicillin with worsening renal function. Repeat urinalysis consistent with urinary tract infection. 1. Acute renal failure, chronic kidney disease IV, rule out acute tubular necrosis verus acute interstitial nephritis secondary to antibiotics. 2. Anemia secondary to chronic kidney disease. 3. Urosepsis. 4. Hypertension. 5. Mild congestive heart failure. 6. Metabolic acidosis secondary to renal failure. PLAN: Discussed with the patient's at bedside that she was not sure about dialysis. She is thinking about dialysis and she will discussed with her son and she will let us know tomorrow. Case discussed with Dr. Cantu regarding possible interstitial nephritis with worsening renal function. We will check urine for eosinophils and Dr. Cantu agreed to change the antibiotics, ampicillin and Rocephin were discontinued and started on Cipro which is sensitive to both Enterococcus faecalis and Klebsiella pneumonia. We will repeat BMP in the a.m. and continue IV fluids D5W with 3 amps of bicarbonate at 70 mL/hour. We will follow with you. Thank you for allowing me to participate in your patient's care. Hernan Peterson MD
[2017-07-30] MEDS: Levothyroxine 25 MCG TAB PO SCH (05:36)
[2017-07-30] MEDS ORDERED: Sodium Chloride 0.9% 250 ML IV ONE (07:57)
[2017-07-30 08:16] LABS: DRAW SITE RB
[2017-07-30] MEDS ORDERED: Sodium Chloride 0.9% 1,000 ML IV ONE (08:27)
--- NOTE | 2017-07-30 08:34 | CP.PCM.PN ---
Subjective - Date & Time of Evaluation Date of Evaluation: 07/30/17 Time of Evaluation: 07:55 - Subjective Subjective: [employer] NOTES Upon reviewing the VSS this am noted T- 95 and bp 90/53,95% Patient seen and examined , lethargic, arousable , confused , resp .tachypnic and using !00 % NBM O2 SAT - not obtainable Objective - Vital Signs/Intake and Output Vital Signs (last 24 hours): Temp Pulse Resp BP Pulse Ox 97.2 F L 78 18 96/50 L 98 07/30/17 08:01 07/30/17 08:01 07/30/17 08:01 07/30/17 08:01 07/30/17 08:01 Intake and Output: 07/30/17 07/30/17 06:59 18:59 Intake Total 560 Output Total 150 Balance 410 - Medications Medications: Current Medications Acetaminophen (Tylenol 325mg Tab) 650 mg PO Q6 PRN PRN Reason: Fever >100.4 F Aspirin (Ecotrin) 81 mg PO DAILY [facility] Last Admin: 07/29/17 10:52 Dose: 81 mg Clopidogrel Bisulfate (Plavix) 75 mg PO DAILY [facility] Last Admin: 07/29/17 10:52 Dose: 75 mg Famotidine (Pepcid) 20 mg IVP DAILY [facility] Last Admin: 07/29/17 10:52 Dose: 20 mg Finasteride (Proscar) 5 mg PO DAILY [facility] Last Admin: 07/28/17 11:06 Dose: 5 mg Hydralazine HCl (Apresoline) 25 mg PO BID [facility] Last Admin: 07/29/17 17:38 Dose: Not Given Sodium Bicarbonate 150 meq/ (Dextrose) 1,150 mls @ 70 mls/hr IV .[id number] [facility] Last Admin: 07/29/17 21:06 Dose: 70 mls/hr Ciprofloxacin (Cipro 200mg/100ml D5w) 100 mls @ 67 mls/hr IVPB Q12H [facility] Last Admin: 07/30/17 01:39 Dose: 67 mls/hr Sodium Chloride (Sodium Chloride 0.9%) 250 mls @ 250 mls/hr IV .Q1H ONE Stop: 07/30/17 08:56 Sodium Chloride (Sodium Chloride 0.9%) 1,000 mls @ 1,000 mls/hr IV .Q1H ONE Stop: 07/30/17 09:26 Levothyroxine Sodium (Synthroid) 25 mcg PO DAILY@0630 [facility] Last Admin: 07/30/17 05:36 Dose: 25 mcg Metoprolol Tartrate (Lopressor) 25 mg PO BID [facility] Last Admin: 07/29/17 17:38 Dose: Not Given Rosuvastatin Calcium (Crestor) 10 mg PO HS [facility] Last Admin: 07/29/17 21:03 Dose: 10 mg Tamsulosin HCl (Flomax) 0.4 mg PO DAILY [facility] Last Admin: 07/29/17 10:52 Dose: 0.4 mg - Labs Labs: 07/27/17 05:52 07/29/17 11:46 - Constitutional Appears: Toxic, In Acute Distress, Confused, Chronically Ill - Respiratory Exam Respiratory Exam: Accessory Muscle Use, Decreased Breath Sounds, Respiratory Distress - Cardiovascular Exam Cardiovascular Exam: REGULAR RHYTHM, +S1, +S2 - Neurological Exam Neurological Exam: Altered Assessment and Plan - Assessment and Plan (Free Text) Assessment: A/P 82 y/o Male with PMHX of HTN, CKD,wise catheter, admitted with lethargy / fever/urosepsis todays vss and labs reviewed T- 95, bp 90/53 , BUN/CR. trending up assessment hypothermia / resp distress / hypotension Plan: stat shock pannel NSS bolus discussed with Dr. Urias - graphic specialist ssen by Dr. Urias and accept patient to ICU transfer Patient transferred to ICU the above plan discussed with Dr. Coyle and agrees with plan
[2017-07-30 09:07] LABS: POTASSIUM 5.4 mmol/L (3.6-5.2)
[2017-07-30 09:09] LABS: BILIRUBIN,TOTAL 1.9 mg/dL (0.2-1.3)
[2017-07-30 09:10] LABS: ALB/GLOB RATIO 0.9 (1.0-2.1); CALCIUM 7.4 mg/dl (8.6-10.4); MAGNESIUM 2.3 mg/dL (1.6-2.3); PHOSPHOROUS 8.6 mg/dL (2.5-4.5); TOTAL PROTEIN 6.2 g/dL (6.3-8.3)
[2017-07-30 09:12] LABS: BASO % 0.3 % (0.0-2.0); EOS % 0.1 % (0.0-4.0); HEMATOCRIT 25.2 % (35.0-51.0); LYMPH # 1.6 K/uL (1.0-4.3); MEAN CELL VOLUME 85.5 fL (80.0-94.0); MEAN CORPUSCULAR HEMOGLOBIN 27.1 pg (27.0-31.0); MEAN CORPUSCULAR HGB CONC 31.7 g/dL (33.0-37.0); MEAN PLATELET VOLUME 8.8 fL (7.2-11.7); MONO # 0.6 K/uL (0.0-0.8); MONO % 4.1 % (0.0-10.0); NRBC % 1.9 % (0.0-2.0); RED CELL DISTRIBUTION WIDTH 16.8 % (11.5-14.5); WHITE BLOOD COUNT 15.6 K/uL (4.8-10.8)
--- NOTE | 2017-07-30 09:20 | RAD ---
Chest x-ray single frontal view History: Respiratory distress. Comparison: 07/27/2017 Findings: Moderate to severe venous congestion. Confluent opacification of the mid to lower lung zones bilaterally with small bilateral pleural effusions. Cardiomegaly. Interrupted sternal sutures. Degenerative changes in the spine with a scoliotic curvature. Upper lobe granulomatous changes. Impression: Moderate to severe venous congestion. Confluent opacification of the mid to lower lung zones bilaterally with small bilateral pleural effusions. Cardiomegaly. Interrupted sternal sutures. Degenerative changes in the spine with a scoliotic curvature. Upper lobe granulomatous changes.
[2017-07-30] MEDS: Sodium Chloride 0.9% 1,000 ML IV SCH ×2 (10:00→20:11)
[2017-07-30 12:06] LABS: VENOUS BLOOD GAS PCO2 23 mmHg (40-60); VENOUS BLOOD PH 7.39 (7.32-7.43)
[2017-07-30 12:27] LABS: INR 1.4
--- NOTE | 2017-07-30 12:33 | CP.PCM.PN ---
Subjective - Date & Time of Evaluation Date of Evaluation: 07/30/17 Time of Evaluation: 12:32 - Subjective Subjective: lethargic.now in icu. Objective - Vital Signs/Intake and Output Vital Signs (last 24 hours): Temp Pulse Resp BP Pulse Ox 97.2 F L 78 18 96/50 L 98 07/30/17 08:01 07/30/17 08:01 07/30/17 08:01 07/30/17 08:01 07/30/17 08:01 Intake and Output: 07/30/17 07/30/17 06:59 18:59 Intake Total 560 Output Total 150 Balance 410 - Medications Medications: Current Medications Acetaminophen (Tylenol 325mg Tab) 650 mg PO Q6 PRN PRN Reason: Fever >100.4 F Aspirin (Ecotrin) 81 mg PO DAILY [facility] Last Admin: 07/30/17 09:26 Dose: Not Given Clopidogrel Bisulfate (Plavix) 75 mg PO DAILY [facility] Last Admin: 07/30/17 09:27 Dose: Not Given Famotidine (Pepcid) 20 mg IVP DAILY [facility] Last Admin: 07/30/17 09:27 Dose: Not Given Finasteride (Proscar) 5 mg PO DAILY [facility] Last Admin: 07/30/17 09:27 Dose: Not Given Hydralazine HCl (Apresoline) 25 mg PO BID [facility] Last Admin: 07/29/17 17:38 Dose: Not Given Sodium Bicarbonate 150 meq/ (Dextrose) 1,150 mls @ 70 mls/hr IV .[id number] [facility] Last Admin: 07/29/17 21:06 Dose: 70 mls/hr Ciprofloxacin (Cipro 200mg/100ml D5w) 100 mls @ 67 mls/hr IVPB Q12H [facility] Last Admin: 07/30/17 01:39 Dose: 67 mls/hr Sodium Chloride (Sodium Chloride 0.9%) 1,000 mls @ 100 mls/hr IV .Q10H [facility] Levothyroxine Sodium (Synthroid) 25 mcg PO DAILY@0630 [facility] Last Admin: 07/30/17 05:36 Dose: 25 mcg Metoprolol Tartrate (Lopressor) 25 mg PO BID [facility] Last Admin: 07/30/17 09:27 Dose: Not Given Rosuvastatin Calcium (Crestor) 10 mg PO HS [facility] Last Admin: 07/29/17 21:03 Dose: 10 mg Tamsulosin HCl (Flomax) 0.4 mg PO DAILY [facility] Last Admin: 07/30/17 09:26 Dose: Not Given - Labs Labs: 07/30/17 08:54 07/30/17 08:54 PT 16.0 SECONDS (9.7-12.2) H 07/30/17 12:16 INR 1.4 07/30/17 12:16 APTT 30 SECONDS (21-34) 07/30/17 08:54 - Constitutional Appears: Chronically Ill - Head Exam Head Exam: NORMOCEPHALIC - Respiratory Exam Respiratory Exam: Clear to Ausculation Bilateral - Cardiovascular Exam Cardiovascular Exam: Tachycardia, REGULAR RHYTHM - GI/Abdominal Exam GI & Abdominal Exam: Soft - Extremities Exam Extremities Exam: absent: Pedal Edema Assessment and Plan - Assessment and Plan (Free Text) Assessment: sepsis,uti.hypotansive. iv fluids & antibiotics.
--- NOTE | 2017-07-30 13:16 | PCM.SEPTIC ---
Sepsis Progress Note - Reassessment Type Date of Evaluation: 07/30/17 Time of Evaluation: 12:30 Reassessment Type: Non-invasive reassessment - Non Invasive Reassessment Were the most recent vital sign reviewed: Yes Vital Sign (Latest): Temp Pulse Resp BP Pulse Ox 97.2 F L 78 18 96/50 L 98 07/30/17 08:01 07/30/17 08:01 07/30/17 08:01 07/30/17 08:01 07/30/17 08:01 Cardiovascular: Yes: Regular Rate, Rhythm, Chest Non Tender Respiratory: Yes: Crackles, Rales. No: Accessory Muscle Use Capillary Refill: Normal (Less than 2 sec) Pulses: Normal Radial, Decreased Dorsalis Pedis, Decreased Posterior Tibialis Skin: Normal Color, Warm - Invasive Reassessment (complete 2 of 4) Was a Central Venous Pressure Measurement obtained within 6 Hours after the presentation of septic shock: No Was a central venous oxygen measurement obtained within 6 hours after the presentation of septic shock: Yes Sv02: 46 Was a bedside cardiovascular ultrasound performed within 6 hours after the presentation of septic shock: No Was a passive leg raise performed or was a fluid challenge performed within 6 hrs of the initial fluid bolus: Yes Fluid Challenge performed: Yes
[2017-07-30] MEDS: Sodium Bicarbonate 8.4% 150 MEQ in Dextrose 5% In Water 1,000 ML IV SCH (13:17)
--- NOTE | 2017-07-30 14:16 | CP.PCM.CON ---
Addendum entered and electronically signed by Leora Wen 07/30/17 17:18 : Crestor stopped due to increased LFTs. Original Note: <Leora Wen - Last Filed: 07/30/17 15:13> History of Present Illness - History of Present Illness History of Present Illness: 82 y/o M with PMHx of CAD, HTN, CKD, dementia and obstructive uropathy requiring wise presented to the ED 07/24 with lethargy and fever from the [place] [facility]. Patient is forgetful at baseline, collateral obtained from prior medical records. On 07/30 the patient was examined by the REPORTS [employer]ELOPER and found to be lethargic, confused and tachypneic with T 95, BP 90/53. Patient found to have Klebsiella Pneumoniae and Enterococcus Faecalis in the urine being treated with Cipro which is sensitive for both. Patient also with bilateral leg ulcers. Critical care consult was placed because patient in respiratory distress and hypotensive. Patient was transferred to the ICU, where a code sepsis was called. Patient altered, ROS unobtainable. 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 Patient previously smoked more than half a pack of cigarettes a day for moth than 40 years. Review of Systems - Review of Systems Systems not reviewed;Unavailable: Dementia Past Patient History - Past Medical History & Family History Past Medical History?: Yes - Past Social History Smoking Status: Former Smoker - CARDIAC Hx Hypertension: Yes - PULMONARY Hx Respiratory Disorders: No - NEUROLOGICAL Hx Neurological Disorder: No - HEENT Hx HEENT Problems: No - RENAL Other/Comment: Chronic Kidney Disease. Retention of Urine - ENDOCRINE/METABOLIC Hx Diabetes Mellitus Type 2: Yes - HEMATOLOGICAL/ONCOLOGICAL Hx Blood Disorders: No - INTEGUMENTARY Other/Comment: Pressure Ulcer - MUSCULOSKELETAL/RHEUMATOLOGICAL Hx Arthritis: Yes (OA, Gout) - GASTROINTESTINAL Hx Gastrointestinal Disorders: Yes Hx Gastritis: Yes - GENITOURINARY/GYNECOLOGICAL Hx Genitourinary Disorders: Yes Other/Comment: Obstructive and Reflux Uropathy - PSYCHIATRIC Hx Substance Use: No - SURGICAL HISTORY Hx Surgeries: Yes Other/Comment: "Quadruple bypass" - ANESTHESIA Hx Anesthesia: Yes Hx Anesthesia Reactions: No Hx Malignant Hyperthermia: No Meds Allergies/Adverse Reactions: Allergies Allergy/AdvReac Type Severity Reaction Status Date / Time No Known Allergies Allergy Verified 05/27/17 05:37 - Medications Medications: Current Medications Acetaminophen (Tylenol 325mg Tab) 650 mg PO Q6 PRN PRN Reason: Fever >100.4 F Aspirin (Ecotrin) 81 mg PO DAILY COUNTS INCLUDE 234 BEDS AT THE [facility] Last Admin: 07/30/17 09:26 Dose: Not Given Clopidogrel Bisulfate (Plavix) 75 mg PO DAILY COUNTS INCLUDE 234 BEDS AT THE [facility] Last Admin: 07/30/17 09:27 Dose: Not Given Famotidine (Pepcid) 20 mg IVP DAILY COUNTS INCLUDE 234 BEDS AT THE [facility] Last Admin: 07/30/17 09:27 Dose: Not Given Finasteride (Proscar) 5 mg PO DAILY COUNTS INCLUDE 234 BEDS AT THE [facility] Last Admin: 07/30/17 09:27 Dose: Not Given Hydralazine HCl (Apresoline) 25 mg PO BID COUNTS INCLUDE 234 BEDS AT THE [facility] Last Admin: 07/29/17 17:38 Dose: Not Given Sodium Bicarbonate 150 meq/ (Dextrose) 1,150 mls @ 70 mls/hr IV .[id number] COUNTS INCLUDE 234 BEDS AT THE [facility] Last Admin: 07/30/17 13:17 Dose: 70 mls/hr Ciprofloxacin (Cipro 200mg/100ml D5w) 100 mls @ 67 mls/hr IVPB Q12H COUNTS INCLUDE 234 BEDS AT THE [facility] Last Admin: 07/30/17 01:39 Dose: 67 mls/hr Sodium Chloride (Sodium Chloride 0.9%) 1,000 mls @ 100 mls/hr IV .Q10H COUNTS INCLUDE 234 BEDS AT THE [facility] Last Admin: 07/30/17 10:00 Dose: 100 mls/hr Levothyroxine Sodium (Synthroid) 25 mcg PO DAILY@0630 COUNTS INCLUDE 234 BEDS AT THE [facility] Last Admin: 07/30/17 05:36 Dose: 25 mcg Metoprolol Tartrate (Lopressor) 25 mg PO BID COUNTS INCLUDE 234 BEDS AT THE [facility] Last Admin: 07/30/17 09:27 Dose: Not Given Rosuvastatin Calcium (Crestor) 10 mg PO HS COUNTS INCLUDE 234 BEDS AT THE [facility] Last Admin: 07/29/17 21:03 Dose: 10 mg Tamsulosin HCl (Flomax) 0.4 mg PO DAILY COUNTS INCLUDE 234 BEDS AT THE [facility] Last Admin: 07/30/17 09:26 Dose: Not Given Physical Exam - Constitutional Appears: Non-toxic - Head Exam Head Exam: ATRAUMATIC, NORMAL INSPECTION - Eye Exam Eye Exam: EOMI - ENT Exam ENT Exam: Mucous Membranes Dry - Respiratory Exam Respiratory Exam: Rhonchi - Cardiovascular Exam Cardiovascular Exam: REGULAR RHYTHM - GI/Abdominal Exam GI & Abdominal Exam: Normal Bowel Sounds, Soft - Extremities Exam Extremities exam: Positive for: pedal edema - Neurological Exam Neurological exam: Alert - Psychiatric Exam Psychiatric exam: Normal Affect, Normal Mood Results - Vital Signs Recent Vital Signs: Last Vital Signs Temp 97.2 F L 07/30/17 08:01 Pulse 78 07/30/17 08:01 Resp 18 07/30/17 08:01 BP 96/50 L 07/30/17 08:01 Pulse Ox 98 07/30/17 08:01 - Labs Result Diagrams: 07/30/17 08:54 07/30/17 08:54 Labs: Laboratory Results - last 24 hr 07/29/17 07/29/17 07/29/17 16:41 16:41 17:03 WBC RBC Hgb Hct MCV MCH MCHC RDW Plt Count MPV Neut % (Auto) Lymph % (Auto) Stearns % (Auto) Eos % (Auto) Baso % (Auto) Neut # Lymph # Stearns # Eos # Baso # PT INR APTT Puncture Site pCO2 pO2 HCO3 ABG pH ABG Total CO2 ABG O2 Saturation ABG Base Excess Elder Test ABG Potassium VBG pH VBG pCO2 VBG HCO3 VBG Total CO2 VBG O2 Sat (Calc) VBG Base Excess VBG Potassium A-a O2 Difference Respiratory Index Sodium Chloride Glucose Lactate Liter Flow FiO2 Crit Value Called To Crit Value Called By Crit Value Read Back Blood Gas Notified Time Potassium Carbon Dioxide Anion Gap BUN Creatinine Est GFR ( Amer) Est GFR (Non-Af Amer) POC Glucose (mg/dL) 108 Random Glucose Calcium Phosphorus Magnesium Total Bilirubin AST ALT Alkaline Phosphatase Total Protein Albumin Globulin Albumin/Globulin Ratio Arterial Blood Potassium Venous Blood Potassium Urine Color Yellow Urine Clarity Hazy Urine pH 5.0 Ur Specific [place] 1.020 Urine Protein 2+ H Urine Glucose (UA) Normal Urine Ketones Negative Urine Blood 3+ H Urine Nitrate Negative Urine Bilirubin Negative Urine Urobilinogen Normal Ur Leukocyte Esterase 3+ H Urine WBC (Auto) 46 H Urine RBC (Auto) 75 H Ur Squamous Epith Cells 1 Urine Bacteria Few H Urine Eosinophils Negative 07/30/17 07/30/17 07/30/17 06:20 08:12 08:54 WBC RBC Hgb Hct MCV MCH MCHC RDW Plt Count MPV Neut % (Auto) Lymph % (Auto) Stearns % (Auto) Eos % (Auto) Baso % (Auto) Neut # Lymph # Stearns # Eos # Baso # PT INR APTT Puncture Site Rb pCO2 19 L* pO2 80 HCO3 19.1 L ABG pH 7.47 H ABG Total CO2 14.4 L ABG O2 Saturation 96.6 ABG Base Excess -7.4 L Elder Test Na ABG Potassium 4.9 VBG pH VBG pCO2 VBG HCO3 VBG Total CO2 VBG O2 Sat (Calc) VBG Base Excess VBG Potassium A-a O2 Difference 609.0 Respiratory Index 7.6 Sodium 141.0 137 Chloride 110.0 H 102 Glucose 94 Lactate 4.6 H* Liter Flow 15.0 FiO2 100.0 Crit Value Called To Dr curt pond Crit Value Called By Jennifer garcia glass cut off tender Crit Value Read Back Y Blood Gas Notified Time 815 Potassium 5.4 H Carbon Dioxide 16 L Anion Gap 24 H BUN 125 H* Creatinine 5.8 H Est GFR ( Amer) 11 Est GFR (Non-Af Amer) 9 POC Glucose (mg/dL) 96 Random Glucose 87 Calcium 7.4 L Phosphorus 8.6 H Magnesium 2.3 Total Bilirubin 1.9 H AST 229 H D ALT 153 H D Alkaline Phosphatase 166 H D Total Protein 6.2 L Albumin 3.0 L Globulin 3.3 Albumin/Globulin Ratio 0.9 L Arterial Blood Potassium 4.9 Venous Blood Potassium Urine Color Urine Clarity Urine pH Ur Specific [place] Urine Protein Urine Glucose (UA) Urine Ketones Urine Blood Urine Nitrate Urine Bilirubin Urine Urobilinogen Ur Leukocyte Esterase Urine WBC (Auto) Urine RBC (Auto) Ur Squamous Epith Cells Urine Bacteria Urine Eosinophils 07/30/17 07/30/17 07/30/17 08:54 08:54 12:03 WBC 15.6 H RBC 2.94 L Hgb 8.0 L Hct 25.2 L MCV 85.5 MCH 27.1 MCHC 31.7 L RDW 16.8 H Plt Count 285 MPV 8.8 Neut % (Auto) 85.5 H Lymph % (Auto) 10.0 L Stearns % (Auto) 4.1 Eos % (Auto) 0.1 Baso % (Auto) 0.3 Neut # 13.4 H Lymph # 1.6 Stearns # 0.6 Eos # 0.0 Baso # 0.0 PT INR APTT 30 Puncture Site pCO2 pO2 26 L HCO3 ABG pH ABG Total CO2 ABG O2 Saturation ABG Base Excess Elder Test ABG Potassium VBG pH 7.39 VBG pCO2 23 L VBG HCO3 16.5 VBG Total CO2 14.6 L VBG O2 Sat (Calc) 46.1 VBG Base Excess -9.0 L VBG Potassium 5.4 H A-a O2 Difference Respiratory Index Sodium 142.0 Chloride 107.0 Glucose 84 Lactate 7.6 H* Liter Flow FiO2 Crit Value Called To Crit Value Called By Neymar hernadez,glass cut off tender Crit Value Read Back Y Blood Gas Notified Time 1210 Potassium Carbon Dioxide Anion Gap BUN Creatinine Est GFR ( Amer) Est GFR (Non-Af Amer) POC Glucose (mg/dL) Random Glucose Calcium Phosphorus Magnesium Total Bilirubin AST ALT Alkaline Phosphatase Total Protein Albumin Globulin Albumin/Globulin Ratio Arterial Blood Potassium Venous Blood Potassium 5.4 H Urine Color Urine Clarity Urine pH Ur Specific [place] Urine Protein Urine Glucose (UA) Urine Ketones Urine Blood Urine Nitrate Urine Bilirubin Urine Urobilinogen Ur Leukocyte Esterase Urine WBC (Auto) Urine RBC (Auto) Ur Squamous Epith Cells Urine Bacteria Urine Eosinophils 07/30/17 12:16 WBC RBC Hgb Hct MCV MCH MCHC RDW Plt Count MPV Neut % (Auto) Lymph % (Auto) Stearns % (Auto) Eos % (Auto) Baso % (Auto) Neut # Lymph # Stearns # Eos # Baso # PT 16.0 H INR 1.4 APTT Puncture Site pCO2 pO2 HCO3 ABG pH ABG Total CO2 ABG O2 Saturation ABG Base Excess Elder Test ABG Potassium VBG pH VBG pCO2 VBG HCO3 VBG Total CO2 VBG O2 Sat (Calc) VBG Base Excess VBG Potassium A-a O2 Difference Respiratory Index Sodium Chloride Glucose Lactate Liter Flow FiO2 Crit Value Called To Crit Value Called By Crit Value Read Back Blood Gas Notified Time Potassium Carbon Dioxide Anion Gap BUN Creatinine Est GFR ( Amer) Est GFR (Non-Af Amer) POC Glucose (mg/dL) Random Glucose Calcium Phosphorus Magnesium Total Bilirubin AST ALT Alkaline Phosphatase Total Protein Albumin Globulin Albumin/Globulin Ratio Arterial Blood Potassium Venous Blood Potassium Urine Color Urine Clarity Urine pH Ur Specific [place] Urine Protein Urine Glucose (UA) Urine Ketones Urine Blood Urine Nitrate Urine Bilirubin Urine Urobilinogen Ur Leukocyte Esterase Urine WBC (Auto) Urine RBC (Auto) Ur Squamous Epith Cells Urine Bacteria Urine Eosinophils Assessment & Plan - Assessment and Plan (Free Text) Assessment: 82 y/o M with PMHx of CAD, HTN, CKD, dementia and obstructive uropathy requiring wise admitted 07/24 with lethargy and fever from the [place] [facility]. Patient was transferred to the ICU 07/30 for respiratory distress and hypotension. Neuro: lethargic and agitated, dementia - tylenol 650 mg PO Q6 PRN pain Cardio: hypotensive secondary to sepsis, hx of CHF - EKG (07/26): 1st degree AV block, right axis deviation, possible anterolateral subendocardial injury - Echo (08/01/16): LVEF 65-70%, left atrial dilation, LVH - Dr. Lynn Thrasher consulted, help appreciated - aspirin 81 mg PO QD - plavix 75 mg PO QD - crestor 10 mg PO HS - hydralazine 25 mg po BID (hold because patient is hypotensive) - lopressor 25 mg PO BID - held if hypotensive Pulm: respiratory distress - Saturating 98% on non-rebreather - CXR (07/30): moderate to severe venous congestion, opacification of the mid to lower lung zones bilaterally with small bilateral pleural effusions, cardiomegaly, upper lobe granuloamtous changes - Respiratory alkalosis: 7.47/ pCO2 19/HCO3 - Arterial lactate (07/30): 4.6, repeat lactate: 7.6 Nephro: CKD, obstructive uropathy - BUN/Cr (07/30): 125/Cr 5.8 - Dr. Peterson consulted, help appreciated - Patient's family had been discussing the possibility of starting dialysis with Dr. Peterson - NS @100 - Bicarb drip @70 GI: dysphagia - pureed diet : BPH, urosepsis - Dr. Sparks consulted, help appreciated - flomax 0.4 mg PO daily - finasteride 5 mg PO daily - wise in place Endo: hypothyroidism - levothyroxine 25mcg PO daily Hematology: anemia, leukocytosis likely secondary to sepsis - Hgb (07/30): 8.0 - WBC (07/30): 15.6 ID: urosepsis, possible pneumonia - urine cx (11/1): final culture grew klebsiella pneumoniae and enterococcus faecalis, both sensitive to ciprofloxacin - ciprofloxacin 200mg q12h - Dr. Cantu consulted, help appreciated - Code sepsis called in ICU (07/30) - repeat blood cultures/urine culures/sputum cultures Derm: bilateral heel wounds - Wound care consulted PPX: - DVT: SCDs, Heparin 5000 u sc q12h - GI: pepcid 20mg IVP daily <Chip Pond - Last Filed: 07/30/17 18:45> Meds - Medications Medications: Current Medications Acetaminophen (Tylenol 325mg Tab) 650 mg PO Q6 PRN PRN Reason: Fever >100.4 F Aspirin (Ecotrin) 81 mg PO DAILY COUNTS INCLUDE 234 BEDS AT THE [facility] Last Admin: 07/30/17 09:26 Dose: Not Given Clopidogrel Bisulfate (Plavix) 75 mg PO DAILY COUNTS INCLUDE 234 BEDS AT THE [facility] Last Admin: 07/30/17 09:27 Dose: Not Given Famotidine (Pepcid) 20 mg IVP DAILY COUNTS INCLUDE 234 BEDS AT THE [facility] Last Admin: 07/30/17 09:27 Dose: Not Given Finasteride (Proscar) 5 mg PO DAILY COUNTS INCLUDE 234 BEDS AT THE [facility] Last Admin: 07/30/17 09:27 Dose: Not Given Heparin Sodium (Porcine) (Heparin) 5,000 units SC Q12H COUNTS INCLUDE 234 BEDS AT THE [facility] Last Admin: 07/30/17 15:00 Dose: 5,000 units Hydralazine HCl (Apresoline) 25 mg PO BID COUNTS INCLUDE 234 BEDS AT THE [facility] Last Admin: 07/29/17 17:38 Dose: Not Given Sodium Bicarbonate 150 meq/ (Dextrose) 1,150 mls @ 70 mls/hr IV .[id number] COUNTS INCLUDE 234 BEDS AT THE [facility] Last Admin: 07/30/17 13:17 Dose: 70 mls/hr Ciprofloxacin (Cipro 200mg/100ml D5w) 100 mls @ 67 mls/hr IVPB Q12H COUNTS INCLUDE 234 BEDS AT THE [facility] Last Admin: 07/30/17 14:00 Dose: 67 mls/hr Sodium Chloride (Sodium Chloride 0.9%) 1,000 mls @ 100 mls/hr IV .Q10H COUNTS INCLUDE 234 BEDS AT THE [facility] Last Admin: 07/30/17 10:00 Dose: 100 mls/hr Levothyroxine Sodium (Synthroid) 25 mcg PO DAILY@0630 COUNTS INCLUDE 234 BEDS AT THE [facility] Last Admin: 07/30/17 05:36 Dose: 25 mcg Metoprolol Tartrate (Lopressor) 25 mg PO BID COUNTS INCLUDE 234 BEDS AT THE [facility] Last Admin: 07/30/17 18:16 Dose: Not Given Tamsulosin HCl (Flomax) 0.4 mg PO DAILY [facility] Last Admin: 07/30/17 09:26 Dose: Not Given Results - Vital Signs Recent Vital Signs: Last Vital Signs Temp 93 F L 07/30/17 16:00 Pulse 70 07/30/17 18:00 Resp 21 07/30/17 18:00 BP 86/54 L 07/30/17 18:00 Pulse Ox 95 07/30/17 18:00 - Labs Result Diagrams: 07/30/17 08:54 07/30/17 08:54 Labs: Laboratory Results - last 24 hr 07/29/17 07/30/17 07/30/17 16:41 06:20 08:12 WBC RBC Hgb Hct MCV MCH MCHC RDW Plt Count MPV Neut % (Auto) Lymph % (Auto) [place] % (Auto) Eos % (Auto) Baso % (Auto) Neut # Lymph # Stearns # Eos # Baso # PT INR APTT Puncture Site Rb pCO2 19 L* pO2 80 HCO3 19.1 L ABG pH 7.47 H ABG Total CO2 14.4 L ABG O2 Saturation 96.6 ABG Base Excess -7.4 L Elder Test Na ABG Potassium 4.9 VBG pH VBG pCO2 VBG HCO3 VBG Total CO2 VBG O2 Sat (Calc) VBG Base Excess VBG Potassium A-a O2 Difference 609.0 Respiratory Index 7.6 Sodium 141.0 Chloride 110.0 H Glucose 94 Lactate 4.6 H* Liter Flow 15.0 FiO2 100.0 Crit Value Called To Dr curt pond Crit Value Called By Jennifer garcia glass cut off tender Crit Value Read Back Y Blood Gas Notified Time 815 Potassium Carbon Dioxide Anion Gap BUN Creatinine Est GFR ( Amer) Est GFR (Non-Af Amer) POC Glucose (mg/dL) 96 Random Glucose Calcium Phosphorus Magnesium Total Bilirubin AST ALT Alkaline Phosphatase Total Protein Albumin Globulin Albumin/Globulin Ratio Arterial Blood Potassium 4.9 Venous Blood Potassium Urine Eosinophils Negative 07/30/17 07/30/17 07/30/17 08:54 08:54 08:54 WBC 15.6 H RBC 2.94 L Hgb 8.0 L Hct 25.2 L MCV 85.5 MCH 27.1 MCHC 31.7 L RDW 16.8 H Plt Count 285 MPV 8.8 Neut % (Auto) 85.5 H Lymph % (Auto) 10.0 L Ste[place]s % (Auto) 4.1 Eos % (Auto) 0.1 Baso % (Auto) 0.3 Neut # 13.4 H Lymph # 1.6 Stearns # 0.6 Eos # 0.0 Baso # 0.0 PT INR APTT 30 Puncture Site pCO2 pO2 HCO3 ABG pH ABG Total CO2 ABG O2 Saturation ABG Base Excess Elder Test ABG Potassium VBG pH VBG pCO2 VBG HCO3 VBG Total CO2 VBG O2 Sat (Calc) VBG Base Excess VBG Potassium A-a O2 Difference Respiratory Index Sodium 137 Chloride 102 Glucose Lactate Liter Flow FiO2 Crit Value Called To Crit Value Called By Crit Value Read Back Blood Gas Notified Time Potassium 5.4 H Carbon Dioxide 16 L Anion Gap 24 H BUN 125 H* Creatinine 5.8 H Est GFR ( Amer) 11 Est GFR (Non-Af Amer) 9 POC Glucose (mg/dL) Random Glucose 87 Calcium 7.4 L Phosphorus 8.6 H Magnesium 2.3 Total Bilirubin 1.9 H AST 229 H D ALT 153 H D Alkaline Phosphatase 166 H D Total Protein 6.2 L Albumin 3.0 L Globulin 3.3 Albumin/Globulin Ratio 0.9 L Arterial Blood Potassium Venous Blood Potassium Urine Eosinophils 07/30/17 07/30/17 12:03 12:16 WBC RBC Hgb Hct MCV MCH MCHC RDW Plt Count MPV Neut % (Auto) Lymph % (Auto) [place] % (Auto) Eos % (Auto) Baso % (Auto) Neut # Lymph # Stearns # Eos # Baso # PT 16.0 H INR 1.4 APTT Puncture Site pCO2 pO2 26 L HCO3 ABG pH ABG Total CO2 ABG O2 Saturation ABG Base Excess Elder Test ABG Potassium VBG pH 7.39 VBG pCO2 23 L VBG HCO3 16.5 VBG Total CO2 14.6 L VBG O2 Sat (Calc) 46.1 VBG Base Excess -9.0 L VBG Potassium 5.4 H A-a O2 Difference Respiratory Index Sodium 142.0 Chloride 107.0 Glucose 84 Lactate 7.6 H* Liter Flow FiO2 Crit Value Called To Crit Value Called By Neymar hernadez,glass cut off tender Crit Value Read Back Y Blood Gas Notified Time 1210 Potassium Carbon Dioxide Anion Gap BUN Creatinine Est GFR ( Amer) Est GFR (Non-Af Amer) POC Glucose (mg/dL) Random Glucose Calcium Phosphorus Magnesium Total Bilirubin AST ALT Alkaline Phosphatase Total Protein Albumin Globulin Albumin/Globulin Ratio Arterial Blood Potassium Venous Blood Potassium 5.4 H Urine Eosinophils Attending/Attestation - Attestation I have personally seen and examined this patient.: Yes I have fully participated in the care of the patient.: Yes I have reviewed all pertinent clinical information: Yes Notes (Text): 07/30/17 18:44 Patient seen and examined . Case discussed with house staff in the morning around 82 y/o M with PMHx of CAD, HTN, CKD, dementia and obstructive uropathy requiring wise admitted 07/24 with lethargy and fever from the [place] [facility]. Patient was transferred to the ICU 07/30 for respiratory distress and hypotension. Continue IV antibiotics Follow-up culture and sensitivity IV fluids Bicarbonate drip Possible hemodialysis Pressors as needed
--- NOTE | 2017-07-30 15:34 | CP.PCM.PN ---
Subjective - Date & Time of Evaluation Date of Evaluation: 07/30/17 Time of Evaluation: 15:34 - Subjective Subjective: pt is seen and examined, follow up consult is dictated #[phone] pt's family agreed for hemodialysis consider pressors to maintain bp hd after sean cath placement by vascular surgery or icu attending Objective - Vital Signs/Intake and Output Vital Signs (last 24 hours): Temp Pulse Resp BP Pulse Ox 98 F 69 20 99/56 L 97 07/30/17 12:00 07/30/17 15:00 07/30/17 15:00 07/30/17 15:00 07/30/17 15:00 Intake and Output: 07/30/17 07/30/17 06:59 18:59 Intake Total 560 2260 Output Total 150 Balance 410 2260 - Medications Medications: Current Medications Acetaminophen (Tylenol 325mg Tab) 650 mg PO Q6 PRN PRN Reason: Fever >100.4 F Aspirin (Ecotrin) 81 mg PO DAILY [facility] Last Admin: 07/30/17 09:26 Dose: Not Given Clopidogrel Bisulfate (Plavix) 75 mg PO DAILY [facility] Last Admin: 07/30/17 09:27 Dose: Not Given Famotidine (Pepcid) 20 mg IVP DAILY [facility] Last Admin: 07/30/17 09:27 Dose: Not Given Finasteride (Proscar) 5 mg PO DAILY [facility] Last Admin: 07/30/17 09:27 Dose: Not Given Heparin Sodium (Porcine) (Heparin) 5,000 units SC Q12H [facility] Hydralazine HCl (Apresoline) 25 mg PO BID [facility] Last Admin: 07/29/17 17:38 Dose: Not Given Sodium Bicarbonate 150 meq/ (Dextrose) 1,150 mls @ 70 mls/hr IV .[id number] [facility] Last Admin: 07/30/17 13:17 Dose: 70 mls/hr Ciprofloxacin (Cipro 200mg/100ml D5w) 100 mls @ 67 mls/hr IVPB Q12H [facility] Last Admin: 07/30/17 01:39 Dose: 67 mls/hr Sodium Chloride (Sodium Chloride 0.9%) 1,000 mls @ 100 mls/hr IV .Q10H [facility] Last Admin: 07/30/17 10:00 Dose: 100 mls/hr Levothyroxine Sodium (Synthroid) 25 mcg PO DAILY@0630 [facility] Last Admin: 07/30/17 05:36 Dose: 25 mcg Metoprolol Tartrate (Lopressor) 25 mg PO BID [facility] Last Admin: 07/30/17 09:27 Dose: Not Given Rosuvastatin Calcium (Crestor) 10 mg PO HS [facility] Last Admin: 07/29/17 21:03 Dose: 10 mg Tamsulosin HCl (Flomax) 0.4 mg PO DAILY [facility] Last Admin: 07/30/17 09:26 Dose: Not Given - Labs Labs: 07/30/17 08:54 07/30/17 08:54 PT 16.0 SECONDS (9.7-12.2) H 07/30/17 12:16 INR 1.4 07/30/17 12:16 APTT 30 SECONDS (21-34) 07/30/17 08:54
--- NOTE | 2017-07-30 23:01 | CP.PCM.PN ---
Subjective - Date & Time of Evaluation Date of Evaluation: 07/30/17 Time of Evaluation: 18:40 - Subjective Subjective: pt seen & examined today, pt's family agreed for hemodialysis consider pressors to maintain bp hd after sean cath placement by vascular surgery or icu attending Objective - Vital Signs/Intake and Output Vital Signs (last 24 hours): Temp Pulse Resp BP Pulse Ox 95.3 F L 69 24 83/37 L 95 07/30/17 20:00 07/30/17 21:00 07/30/17 21:00 07/30/17 21:00 07/30/17 21:00 Intake and Output: 07/30/17 07/31/17 18:59 06:59 Intake Total 2940 680 Output Total 62 13 Balance 2878 667 - Medications Medications: Current Medications Acetaminophen (Tylenol 325mg Tab) 650 mg PO Q6 PRN PRN Reason: Fever >100.4 F Aspirin (Ecotrin) 81 mg PO DAILY [facility] Last Admin: 07/30/17 09:26 Dose: Not Given Clopidogrel Bisulfate (Plavix) 75 mg PO DAILY [facility] Last Admin: 07/30/17 09:27 Dose: Not Given Famotidine (Pepcid) 20 mg IVP DAILY [facility] Last Admin: 07/30/17 09:27 Dose: Not Given Finasteride (Proscar) 5 mg PO DAILY [facility] Last Admin: 07/30/17 09:27 Dose: Not Given Heparin Sodium (Porcine) (Heparin) 5,000 units SC Q12H [facility] Last Admin: 07/30/17 15:00 Dose: 5,000 units Hydralazine HCl (Apresoline) 25 mg PO BID [facility] Last Admin: 07/29/17 17:38 Dose: Not Given Sodium Bicarbonate 150 meq/ (Dextrose) 1,150 mls @ 70 mls/hr IV .[id number] [facility] Last Admin: 07/30/17 13:17 Dose: 70 mls/hr Ciprofloxacin (Cipro 200mg/100ml D5w) 100 mls @ 67 mls/hr IVPB Q12H [facility] Last Admin: 07/30/17 14:00 Dose: 67 mls/hr Sodium Chloride (Sodium Chloride 0.9%) 1,000 mls @ 100 mls/hr IV .Q10H [facility] Last Admin: 07/30/17 20:11 Dose: Not Given Levothyroxine Sodium (Synthroid) 25 mcg PO DAILY@0630 [facility] Last Admin: 07/30/17 05:36 Dose: 25 mcg Metoprolol Tartrate (Lopressor) 25 mg PO BID [facility] Last Admin: 07/30/17 18:16 Dose: Not Given Tamsulosin HCl (Flomax) 0.4 mg PO DAILY [facility] Last Admin: 07/30/17 09:26 Dose: Not Given - Labs Labs: 07/30/17 08:54 07/30/17 08:54 PT 16.0 SECONDS (9.7-12.2) H 07/30/17 12:16 INR 1.4 07/30/17 12:16 APTT 30 SECONDS (21-34) 07/30/17 08:54 Assessment and Plan (1) Fever Status: Acute (2) Leukocytosis Status: Acute (3) UTI (urinary tract infection) Status: Acute (4) Leg ulcer Status: Acute
--- NOTE | 2017-07-31 00:43 | PN ---
FOLLOWUP RENAL CONSULTATION LOCATION: The patient is located in ICU, bed 16. REQUESTED BY: Daniel Coyle MD REASON FOR FOLLOWUP: Acute renal failure on chronic kidney disease, code sepsis. SUBJECTIVE: The patient is an 82-year-old elderly -[place] male with a past medical history significant for longstanding hypertension; hyperlipidemia; coronary artery disease, status post CABG; CHF; rhabdomyolysis; anemia; and chronic kidney disease stage IV; tophaceous gout, who was admitted to [facility] from 05/27/2017 to 06/06/2017, subsequently discharged to [facility]. From there, now the patient was admitted with drowsiness and fever and found to have increased BUN and creatinine, being treated for urosepsis, on IV antibiotics. Antibiotics were changed from ampicillin and Rocephin to ciprofloxacin for urosepsis and for worsening renal function. Now, the patient was transferred to ICU for code sepsis and persistent hypotension. The patient is not in distress. Denies any chest pain, palpitation. Responding to simple commands. PHYSICAL EXAMINATION: GENERAL: The patient is an 82-year-old elderly -[place] male, moderately-built, moderately-nourished, not in any distress. VITAL SIGNS: As follows; blood pressure 99/56, pulse 69, respirations 20, temperature 93, saturation 97%. Height 6 feet 3 inches and weight is 168 pounds. HEENT: Pupils are normal and reactive to light and accommodation. Conjunctivae are pink. Sclerae are anicteric. Tongue is moist. Trachea is midline. LUNGS: Symmetric on both sides. Bilateral breath sounds present. Bilateral basal crackles present. CARDIOVASCULAR SYSTEM: [place] at the fifth intercostal space, midclavicular line. S1 and S2 audible. No murmur or gallop. ABDOMEN: Normal in appearance, soft, tympanic. No guarding. No rigidity. No hepatosplenomegaly. CENTRAL NERVOUS SYSTEM: The patient is awake, following simple commands. EXTREMITIES: No cyanosis. No clubbing. No edema. LABORATORY DATA: His laboratory data includes as follows; as of 07/30/2017, WBC 15.6, hemoglobin 8, hematocrit is 25.2, platelets 285. ABG: PH 7.47 and pCO2 of 19, pO2 of 80, bicarb is 19, saturation 96.6, Other laboratory data: Lactic acid is 4.6. Sodium 137, potassium is 5.4, chloride 102, CO2 16, BUN is 125 and creatinine is 5.8, glucose 87, calcium 7.4, phosphorus 8.6, magnesium 2.3, total bili 1.9, AST 229, ALT 153, alkaline phos 166, total protein 6.2, albumin is 3. Repeat lactic acid level is 7.6. Blood culture as of 07/26/2017, negative day 4. Urine culture as of 07/24/2017, positive for Klebsiella pneumoniae and Enterococcus faecalis. 07/24/2017 blood culture x 2 negative day 5. Chest x-ray as of 07/30/2017, impression: Moderate to severe venous congestion and confluent opacification of the mid to lower lung zones bilaterally with small bilateral pleural effusions. MEDICATIONS: His current medications include as follows; hydralazine 25 mg p.o. b.i.d., Cipro 200 mg q.12 hours, Ecotrin 81 mg daily, Flomax 0.4 mg p.o. daily, subcu heparin 5000 q.12, Lopressor 25 mg p.o. b.i.d., Pepcid 20 mg IV daily, Plavix 75 mg p.o. daily, Proscar 5 mg p.o. daily, sodium bicarb drip 70 mL per hour, and IV fluids normal saline at 100 mL per hour not given and receiving only sodium bicarb 70 mL per hour. ASSESSMENT: In summary, the patient is an 82-year-old elderly -[place] male with a history of hypertension; coronary artery disease, status post coronary artery bypass graft; chronic kidney disease stage IV; anemia; congestive heart failure; was admitted with altered mental status and also increased BUN and creatinine, low-grade fever, and urine culture is positive for Klebsiella pneumoniae and Enterococcus faecalis. Initially, started him on Rocephin and ampicillin, subsequently changed to Cipro with worsening renal function. Urine eosinophils as of 07/29/2017 is negative, and creatinine clearance is 2.0 as of 07/29/2017. 1. Acute renal failure on chronic kidney disease. 2. Urosepsis. 3. Hypotension, most likely secondary to sepsis. 4. Anemia. 5. Coronary artery disease. 6. Congestive heart failure, rule out pneumonia. PLAN: Continue Cipro as per Dr. Cantu. The patient will need hemodialysis. Discussed with the patient's son and the patient's regarding the possible need for hemodialysis and also I explained the risk and benefits, including hypotension, cardiac arrhythmias and seizures during hemodialysis. The patient's family agreed and gave the telephone consent for hemodialysis. We will request Vascular Surgery consult or manufacturing operator to place Rufus catheter for hemodialysis, and also consider vasopressors to maintain the blood pressure 120 to 130. Overall prognosis is poor. Thank you for allowing me to participate in your patient's care. Continue IV antibiotics. We will schedule for hemodialysis after Rufus catheter placement. Hernan Peterson MD MTDD
[2017-07-31] MEDS: Sodium Bicarbonate 8.4% 150 MEQ in Dextrose 5% In Water 1,000 ML IV SCH ×3 (00:45→17:49)
[2017-07-31] MEDS: Ciprofloxacin 200mg/100ml D5W 100 ML IVPB SCH ×2 (01:30→13:31)
--- NOTE | 2017-07-31 05:22 | CP.PCM.CON ---
History of Present Illness - History of Present Illness History of Present Illness: Vascular Surgery Consult Re: HD dialysis catheter placement HPI:82M with initially presented to the ER from his senior care on 07/24/17 with lethargy and fever and found to have a UTI (has indwelling wise). Patient does not respond to questions at this time but is reported to be "forgetful" at baseline. History obtained from EMR. On 07/30/17 patient was transferred to the ICU because of respiratory distress and hypotension. Code sepsis was called. Vascular surgery consulted for placement of HD catheter for dialysis for his NELSON on top of his CKD. Discussed case with Concaver who also wanted access for pressor support, so the decision was made to place a temporary HD cath with 3 lumens. Patient altered, ROS unobtainable. PMH: Dementia, CKD, CAD, CHF, HTN, HLD, hypothyroidism, BPH, gout PSH: CABG 10+ years ago SH: long term pt, former smoker 40yrs 1/2 ppd All: NKDA Meds: See MAR Review of Systems - Review of Systems Systems not reviewed;Unavailable: Acuity of Condition, Altered Mental Status Past Patient History - Past Medical History & Family History Past Medical History?: Yes - Past Social History Smoking Status: Former Smoker - CARDIAC Hx Hypertension: Yes - PULMONARY Hx Respiratory Disorders: No - NEUROLOGICAL Hx Neurological Disorder: No - HEENT Hx HEENT Problems: No - RENAL Other/Comment: Chronic Kidney Disease. Retention of Urine - ENDOCRINE/METABOLIC Hx Diabetes Mellitus Type 2: Yes - HEMATOLOGICAL/ONCOLOGICAL Hx Blood Disorders: No - INTEGUMENTARY Other/Comment: Pressure Ulcer - MUSCULOSKELETAL/RHEUMATOLOGICAL Hx Arthritis: Yes (OA, Gout) - GASTROINTESTINAL Hx Gastrointestinal Disorders: Yes Hx Gastritis: Yes - GENITOURINARY/GYNECOLOGICAL Hx Genitourinary Disorders: Yes Other/Comment: Obstructive and Reflux Uropathy - PSYCHIATRIC Hx Substance Use: No - SURGICAL HISTORY Hx Surgeries: Yes Other/Comment: "Quadruple bypass" - ANESTHESIA Hx Anesthesia: Yes Hx Anesthesia Reactions: No Hx Malignant Hyperthermia: No Meds Allergies/Adverse Reactions: Allergies Allergy/AdvReac Type Severity Reaction Status Date / Time No Known Allergies Allergy Verified 05/27/17 05:37 - Medications Medications: Current Medications Acetaminophen (Tylenol 325mg Tab) 650 mg PO Q6 PRN PRN Reason: Fever >100.4 F Aspirin (Ecotrin) 81 mg PO DAILY DAWIT Last Admin: 11/07/17 09:26 Dose: Not Given Clopidogrel Bisulfate (Plavix) 75 mg PO DAILY [facility] Last Admin: 07/30/17 09:27 Dose: Not Given Famotidine (Pepcid) 20 mg IVP DAILY [facility] Last Admin: 07/30/17 09:27 Dose: Not Given Finasteride (Proscar) 5 mg PO DAILY [facility] Last Admin: 07/30/17 09:27 Dose: Not Given Heparin Sodium (Porcine) (Heparin) 5,000 units SC Q12H [facility] Last Admin: 07/30/17 15:00 Dose: 5,000 units Hydralazine HCl (Apresoline) 25 mg PO BID [facility] Last Admin: 07/29/17 17:38 Dose: Not Given Sodium Bicarbonate 150 meq/ (Dextrose) 1,150 mls @ 70 mls/hr IV .[id number] [facility] Last Admin: 07/30/17 13:17 Dose: 70 mls/hr Ciprofloxacin (Cipro 200mg/100ml D5w) 100 mls @ 67 mls/hr IVPB Q12H [facility] Last Admin: 07/30/17 14:00 Dose: 67 mls/hr Sodium Chloride (Sodium Chloride 0.9%) 1,000 mls @ 100 mls/hr IV .Q10H [facility] Last Admin: 07/30/17 20:11 Dose: Not Given Levothyroxine Sodium (Synthroid) 25 mcg PO DAILY@0630 [facility] Last Admin: 07/30/17 05:36 Dose: 25 mcg Metoprolol Tartrate (Lopressor) 25 mg PO BID [facility] Last Admin: 07/30/17 18:16 Dose: Not Given Tamsulosin HCl (Flomax) 0.4 mg PO DAILY [facility] Last Admin: 07/30/17 09:26 Dose: Not Given Physical Exam - Constitutional Appears: Confused, Chronically Ill - Head Exam Head Exam: ATRAUMATIC, NORMOCEPHALIC - Eye Exam Eye Exam: EOMI. absent: Scleral icterus - ENT Exam ENT Exam: Mucous Membranes Dry Additional comments: trachea midline - Respiratory Exam Respiratory Exam: NORMAL BREATHING PATTERN. absent: Respiratory Distress - Cardiovascular Exam Cardiovascular Exam: RRR, +S1, +S2. absent: Tachycardia - GI/Abdominal Exam GI & Abdominal Exam: Soft. absent: Distended, Tenderness - Rectal Exam Rectal Exam: Deferred - Extremities Exam Extremities exam: Negative for: calf tenderness - Back Exam Back exam: absent: CVA tenderness (L), CVA tenderness (R) - Neurological Exam Neurological exam: Altered Additional comments: no verbal responses - Skin Skin Exam: Dry, Warm Results - Vital Signs Recent Vital Signs: Last Vital Signs Temp 95.3 F L 07/30/17 20:00 Pulse 72 07/30/17 23:00 Resp 23 07/30/17 23:00 BP 92/49 L 07/30/17 23:00 Pulse Ox 95 07/30/17 23:00 - Labs Result Diagrams: 07/31/17 06:22 07/31/17 06:22 Labs: Laboratory Results - last 24 hr 07/29/17 07/30/17 07/30/17 16:41 06:20 08:12 WBC RBC Hgb Hct MCV MCH MCHC RDW Plt Count MPV Neut % (Auto) Lymph % (Auto) Weber % (Auto) Eos % (Auto) Baso % (Auto) Neut # Lymph # Weber # Eos # Baso # PT INR APTT Puncture Site Rb pCO2 19 L* pO2 80 HCO3 19.1 L ABG pH 7.47 H ABG Total CO2 14.4 L ABG O2 Saturation 96.6 ABG Base Excess -7.4 L Elder Test Na ABG Potassium 4.9 VBG pH VBG pCO2 VBG HCO3 VBG Total CO2 VBG O2 Sat (Calc) VBG Base Excess VBG Potassium A-a O2 Difference 609.0 Respiratory Index 7.6 Sodium 141.0 Chloride 110.0 H Glucose 94 Lactate 4.6 H* Liter Flow 15.0 FiO2 100.0 Crit Value Called To Dr curt pond Crit Value Called By Jennifer garcia [employer] Crit Value Read Back Y Blood Gas Notified Time 815 Potassium Carbon Dioxide Anion Gap BUN Creatinine Est GFR ( Amer) Est GFR (Non-Af Amer) POC Glucose (mg/dL) 96 Random Glucose Calcium Phosphorus Magnesium Total Bilirubin AST ALT Alkaline Phosphatase Total Protein Albumin Globulin Albumin/Globulin Ratio Arterial Blood Potassium 4.9 Venous Blood Potassium Urine Eosinophils Negative 07/30/17 07/30/17 07/30/17 08:54 08:54 08:54 WBC 15.6 H RBC 2.94 L Hgb 8.0 L Hct 25.2 L MCV 85.5 MCH 27.1 MCHC 31.7 L RDW 16.8 H Plt Count 285 MPV 8.8 Neut % (Auto) 85.5 H Lymph % (Auto) 10.0 L Weber % (Auto) 4.1 Eos % (Auto) 0.1 Baso % (Auto) 0.3 Neut # 13.4 H Lymph # 1.6 Weber # 0.6 Eos # 0.0 Baso # 0.0 PT INR APTT 30 Puncture Site pCO2 pO2 HCO3 ABG pH ABG Total CO2 ABG O2 Saturation ABG Base Excess Elder Test ABG Potassium VBG pH VBG pCO2 VBG HCO3 VBG Total CO2 VBG O2 Sat (Calc) VBG Base Excess VBG Potassium A-a O2 Difference Respiratory Index Sodium 137 Chloride 102 Glucose Lactate Liter Flow FiO2 Crit Value Called To Crit Value Called By Crit Value Read Back Blood Gas Notified Time Potassium 5.4 H Carbon Dioxide 16 L Anion Gap 24 H BUN 125 H* Creatinine 5.8 H Est GFR ( Amer) 11 Est GFR (Non-Af Amer) 9 POC Glucose (mg/dL) Random Glucose 87 Calcium 7.4 L Phosphorus 8.6 H Magnesium 2.3 Total Bilirubin 1.9 H AST 229 H D ALT 153 H D Alkaline Phosphatase 166 H D Total Protein 6.2 L Albumin 3.0 L Globulin 3.3 Albumin/Globulin Ratio 0.9 L Arterial Blood Potassium Venous Blood Potassium Urine Eosinophils 07/30/17 07/30/17 12:03 12:16 WBC RBC Hgb Hct MCV MCH MCHC RDW Plt Count MPV Neut % (Auto) Lymph % (Auto) Weber % (Auto) Eos % (Auto) Baso % (Auto) Neut # Lymph # Weber # Eos # Baso # PT 16.0 H INR 1.4 APTT Puncture Site pCO2 pO2 26 L HCO3 ABG pH ABG Total CO2 ABG O2 Saturation ABG Base Excess Elder Test ABG Potassium VBG pH 7.39 VBG pCO2 23 L VBG HCO3 16.5 VBG Total CO2 14.6 L VBG O2 Sat (Calc) 46.1 VBG Base Excess -9.0 L VBG Potassium 5.4 H A-a O2 Difference Respiratory Index Sodium 142.0 Chloride 107.0 Glucose 84 Lactate 7.6 H* Liter Flow FiO2 Crit Value Called To Crit Value Called By Neymar hernadez,[employer] Crit Value Read Back Y Blood Gas Notified Time 1210 Potassium Carbon Dioxide Anion Gap BUN Creatinine Est GFR ( Amer) Est GFR (Non-Af Amer) POC Glucose (mg/dL) Random Glucose Calcium Phosphorus Magnesium Total Bilirubin AST ALT Alkaline Phosphatase Total Protein Albumin Globulin Albumin/Globulin Ratio Arterial Blood Potassium Venous Blood Potassium 5.4 H Urine Eosinophils Assessment & Plan - Assessment and Plan (Free Text) Assessment: 82M with acute on chronic CKD requiring HD, s/p L femoral vein HD catheter placement. Plan: 3 lumen Temporary dialysis catheter placed in L groin (please refer to handwritten procedure note). If buttermaker helper dialysis needed will evaluate for permacath placement/AVF placement. HD per nephrology. Monitor L groin site for hematoma/bleeding D/W Dr. Karma Kilpatrick PGY4
[2017-07-31 06:34] LABS: EOS % 0.1 % (0.0-4.0)
[2017-07-31 06:42] LABS: ALB/GLOB RATIO 0.7 (1.0-2.1); ALKALINE PHOSPHATASE 167 U/L (38-126); ALT/SGPT 328 U/L (21-72); AST/SGOT 488 U/L (17-59); BILIRUBIN,TOTAL 1.6 mg/dL (0.2-1.3); CALCIUM 7.3 mg/dl (8.6-10.4); CARBON DIOXIDE 14 mmol/L (22-30); CHLORIDE 101 mmol/L (98-107); GLUCOSE,RANDOM 66 mg/dL (75-110); MAGNESIUM 2.3 mg/dL (1.6-2.3); PHOSPHOROUS 8.8 mg/dL (2.5-4.5); POTASSIUM 5.4 mmol/L (3.6-5.2); SODIUM 140 mmol/L (132-148); TOTAL PROTEIN 6.5 g/dL (6.3-8.3)
[2017-07-31 06:49] LABS: HEMATOCRIT 21.8 % (35.0-51.0); MEAN PLATELET VOLUME 9.5 fL (7.2-11.7)
[2017-07-31 06:53] LABS: GFR AFRICAN-AMERICAN 12
[2017-07-31 06:59] LABS: BLOOD UREA NITROGEN 122 mg/dL (9-20)
[2017-07-31 07:14] LABS: BASO % 0.1 % (0.0-2.0); LYMPH # 1.2 K/uL (1.0-4.3); LYMPH % 7.3 % (20.0-40.0); MEAN CELL VOLUME 86.8 fL (80.0-94.0); MEAN CORPUSCULAR HEMOGLOBIN 27.5 pg (27.0-31.0); MEAN CORPUSCULAR HGB CONC 31.7 g/dL (33.0-37.0); MONO # 0.7 K/uL (0.0-0.8); MONO % 4.1 % (0.0-10.0); NRBC % 3.2 % (0.0-2.0); PLATELET COUNT 242 K/uL (130-400); RED CELL DISTRIBUTION WIDTH 16.9 % (11.5-14.5); WHITE BLOOD COUNT 16.7 K/uL (4.8-10.8)
[2017-07-31] MEDS: Levothyroxine 25 MCG TAB PO SCH (07:28)
[2017-07-31 08:12] LABS: NEUTROPHIL 94 % (50-75); NUCLEATED RED BLOOD CELL 1 % (0-0); TOTAL CELLS COUNTED 100
[2017-07-31 08:47] LABS: ABG ALLEN TEST PO; DRAW SITE RRA
[2017-07-31 11:06] LABS: HEMATOCRIT 21.6 % (35.0-51.0); MEAN CELL VOLUME 85.9 fL (80.0-94.0); MEAN CORPUSCULAR HEMOGLOBIN 27.8 pg (27.0-31.0); MEAN CORPUSCULAR HGB CONC 32.3 g/dL (33.0-37.0); MEAN PLATELET VOLUME 9.2 fL (7.2-11.7); RED CELL DISTRIBUTION WIDTH 16.6 % (11.5-14.5); WHITE BLOOD COUNT 16.4 K/uL (4.8-10.8)
--- NOTE | 2017-07-31 11:36 | CP.CCUPN ---
<BettyeLeora L. - Last Filed: 07/31/17 13:07> CCU Subjective - Physician Review Subjective (Free Text): Patient seen and examined at bedside. Patient is lethargic, difficult to rouse but resting comfortably. ROS unobtainable at this time due to clinical condition. CCU Objective - Vital Signs / Intake & Output Vital Signs (Last 4 hours): Vital Signs Temp Pulse Resp BP Pulse Ox 07/31/17 10:00 82 20 104/60 99 07/31/17 09:00 80 19 102/56 L 98 07/31/17 08:00 98.7 F 81 18 102/55 L 97 Intake and Output (Last 8hrs): Intake & Output 07/30/17 07/31/17 07/31/17 22:59 06:59 14:59 Intake Total 1530 340 332.8 Output Total 30 3 38 Balance 1500 337 294.8 Weight 175 lb 14.862 oz Intake: Intake, IV Amount 1530 340 332.8 Left Femoral 52.8 Right Forearm 630 140 280 Right Wrist 900 200 0 Output: Urine 30 3 38 Urethral (Wise) 30 3 38 Other: # Bowel Movements 0 0 0 - Physical Exam Physical Exam Limitations: Positive for: Altered Mental Status Head: Positive for: Atraumatic, Normocephalic Extroacular Muscles: Positive for: EOMI Mouth: Positive for: Moist Mucous Membranes Respiratory/Chest: Positive for: Good Air Exchange, Rhonchi. Negative for: Accessory Muscle Use Abdomen: Negative for: Tenderness, Distention Lower Extremity: Positive for: Edema, Other (dressings clean/ dry/ intact) Skin: Positive for: Warm, Normal Color, Other (b/l heel wounds ) Psychiatric: Positive for: Alert - Medications Active Medications: Active Medications Generic Name Dose Route Start Last Admin Trade Name Freq PRN Reason Stop Dose Admin Acetaminophen 650 mg 07/24/17 16:35 Tylenol 325mg Tab PO Q6 PRN Fever >100.4 F Aspirin 81 mg 07/25/17 10:00 07/31/17 10:17 Ecotrin PO 81 mg DAILY DAWIT Administration Clopidogrel Bisulfate 75 mg 07/25/17 10:00 07/31/17 10:17 Plavix PO 75 mg DAILY DAWIT Administration Famotidine 20 mg 07/31/17 10:00 07/31/17 10:17 Pepcid IVP 20 mg DAILY DAWIT Administration Finasteride 5 mg 07/25/17 10:00 07/31/17 10:19 Proscar PO 5 mg DAILY DAWIT Administration Heparin Sodium (Porcine) 5,000 units 07/30/17 14:30 07/31/17 02:30 Heparin SC Not Given Q12H DAWIT Hydralazine HCl 25 mg 07/24/17 18:00 07/29/17 17:38 Apresoline PO Not Given BID DAWIT Sodium Bicarbonate 150 meq/ 1,150 mls @ 70 mls/hr 07/28/17 23:30 07/31/17 10: 29 Dextrose IV 70 mls/hr .[id number] DAWIT Administration Ciprofloxacin 100 mls @ 67 mls/hr 07/29/17 13:30 07/31/17 01:30 Cipro 200mg/100ml D5w IVPB 67 mls/hr Q12H DAWIT Administration Norepinephrine Bitartrate 4 mg 254 mls @ 0 mls/hr 07/31/17 02:35 07/31/17 02: 30 / Dextrose IV 9.4 mls/hr .Q0M PRN Administration UD Levothyroxine Sodium 25 mcg 07/25/17 06:30 07/31/17 07:28 Synthroid PO 25 mcg DAILY@0630 DAWIT Administration Metoprolol Tartrate 25 mg 07/26/17 10:30 07/30/17 18:16 Lopressor PO Not Given BID DAWIT Tamsulosin HCl 0.4 mg 07/25/17 10:00 07/31/17 10:17 Flomax PO 0.4 mg DAILY DAWIT Administration - Patient Studies Lab Studies: Microbiology Studies 07/30/17 08:48 MRSA Culture (Admit) - Final Naris MRSA NOT DETECTED 07/26/17 11:45 Blood Culture - Preliminary Blood NO GROWTH AFTER 4 DAYS 07/26/17 11:00 Blood Culture - Preliminary Blood NO GROWTH AFTER 4 DAYS Lab Studies 07/31/17 07/31/17 07/31/17 Range/Units 11:13 10:57 08:44 WBC 16.4 H (4.8-10.8) K/uL RBC 2.51 L (4.40-5.90) Mil/uL Hgb 7.0 L (12.0-18.0) g/dL Hct 21.6 L (35.0-51.0) % MCV 85.9 (80.0-94.0) fL MCH 27.8 (27.0-31.0) pg MCHC 32.3 L (33.0-37.0) g/dL RDW 16.6 H (11.5-14.5) % Plt Count 252 (130-400) K/uL MPV 9.2 (7.2-11.7) fL Neut % (Auto) (50.0-75.0) % Lymph % (Auto) (20.0-40.0) % Weber % (Auto) (0.0-10.0) % Eos % (Auto) (0.0-4.0) % Baso % (Auto) (0.0-2.0) % Neut # (1.8-7.0) K/uL Lymph # (1.0-4.3) K/uL Weber # (0.0-0.8) K/uL Eos # (0.0-0.7) K/uL Baso # (0.0-0.2) K/uL Neutrophils % (Manual) (50-75) % Lymphocytes % (Manual) (20-40) % Monocytes % (Manual) (0-10) % Nucleated RBC % (0-0) % Platelet Estimate (NORMAL) Polychromasia Hypochromasia (manual) Anisocytosis (manual) Microcytosis (manual) Target Cells Tear Drop Cells Ovalocytes Rosalie Cells PT (9.7-12.2) SECONDS INR Puncture Site Rra pCO2 22 L (35-45) mm/Hg pO2 79 L (30-55) mm/Hg HCO3 24.0 (21-28) mmol/L ABG pH 7.55 H (7.35-7.45) ABG Total CO2 19.9 L (22-28) mmol/L ABG O2 Saturation 96.2 (95-98) % ABG Base Excess -1.2 (-2.0-3.0) mmol/L Elder Test Po ABG Potassium 4.4 (3.6-5.2) mmol/L VBG pH (7.32-7.43) VBG pCO2 (40-60) mmHg VBG HCO3 mmol/L VBG Total CO2 (22-28) mmol/L VBG O2 Sat (Calc) (40-65) % VBG Base Excess (0.0-2.0) mmol/L VBG Potassium (3.6-5.2) mmol/L A-a O2 Difference 143.0 mm/Hg Respiratory Index 1.8 Sodium 139.0 (132-148) mmol/l Chloride 106.0 (98-107) mmol/L Glucose 87 (75-110) mg/dl Lactate 2.9 H (0.7-2.1) mmol/L Liter Flow 4.0 FiO2 35.0 % Crit Value Called To Crit Value Called By Crit Value Read Back Blood Gas Notified Time Potassium (3.6-5.2) mmol/L Carbon Dioxide (22-30) mmol/L Anion Gap (10-20) BUN (9-20) mg/dL Creatinine (0.8-1.5) mg/dL Est GFR ( Amer) Est GFR (Non-Af Amer) POC Glucose (mg/dL) 106 (65-110) mg/dL Random Glucose (75-110) mg/dL Calcium (8.6-10.4) mg/dl Phosphorus (2.5-4.5) mg/dL Magnesium (1.6-2.3) mg/dL Total Bilirubin (0.2-1.3) mg/dL AST (17-59) U/L ALT (21-72) U/L Alkaline Phosphatase (38-126) U/L Total Protein (6.3-8.3) g/dL Albumin (3.5-5.0) g/dL Globulin (2.2-3.9) gm/dL Albumin/Globulin Ratio (1.0-2.1) Arterial Blood Potassium 4.4 (3.6-5.2) mmol/L Venous Blood Potassium (3.6-5.2) mmol/L Hep Bs Antigen (NEGATIVE) Hep Bs Antibody (NEGATIVE) Hep B Core IgM Ab (NEGATIVE) Hepatitis C Antibody (NEGATIVE) 07/31/17 07/31/17 07/31/17 Range/Units 06:22 06:22 06:22 WBC (4.8-10.8) K/uL RBC (4.40-5.90) Mil/uL Hgb (12.0-18.0) g/dL Hct (35.0-51.0) % MCV (80.0-94.0) fL MCH (27.0-31.0) pg MCHC (33.0-37.0) g/dL RDW (11.5-14.5) % Plt Count (130-400) K/uL MPV (7.2-11.7) fL Neut % (Auto) (50.0-75.0) % Lymph % (Auto) (20.0-40.0) % Weber % (Auto) (0.0-10.0) % Eos % (Auto) (0.0-4.0) % Baso % (Auto) (0.0-2.0) % Neut # (1.8-7.0) K/uL Lymph # (1.0-4.3) K/uL Weber # (0.0-0.8) K/uL Eos # (0.0-0.7) K/uL Baso # (0.0-0.2) K/uL Neutrophils % (Manual) (50-75) % Lymphocytes % (Manual) (20-40) % Monocytes % (Manual) (0-10) % Nucleated RBC % (0-0) % Platelet Estimate (NORMAL) Polychromasia Hypochromasia (manual) Anisocytosis (manual) Microcytosis (manual) Target Cells Tear Drop Cells Ovalocytes [place] Cells PT (9.7-12.2) SECONDS INR Puncture Site pCO2 (35-45) mm/Hg pO2 (30-55) mm/Hg HCO3 (21-28) mmol/L ABG pH (7.35-7.45) ABG Total CO2 (22-28) mmol/L ABG O2 Saturation (95-98) % ABG Base Excess (-2.0-3.0) mmol/L Elder Test ABG Potassium (3.6-5.2) mmol/L VBG pH (7.32-7.43) VBG pCO2 (40-60) mmHg VBG HCO3 mmol/L VBG Total CO2 (22-28) mmol/L VBG O2 Sat (Calc) (40-65) % VBG Base Excess (0.0-2.0) mmol/L VBG Potassium (3.6-5.2) mmol/L A-a O2 Difference mm/Hg Respiratory Index Sodium 140 (132-148) mmol/l Chloride 101 (98-107) mmol/L Glucose (75-110) mg/dl Lactate (0.7-2.1) mmol/L Liter Flow FiO2 % Crit Value Called To Crit Value Called By Crit Value Read Back Blood Gas Notified Time Potassium 5.4 H (3.6-5.2) mmol/L Carbon Dioxide 14 L (22-30) mmol/L Anion Gap 30 H (10-20) BUN 122 H* (9-20) mg/dL Creatinine 5.7 H (0.8-1.5) mg/dL Est GFR ( Amer) 12 Est GFR (Non-Af Amer) 10 POC Glucose (mg/dL) (65-110) mg/dL Random Glucose 66 L (75-110) mg/dL Calcium 7.3 L (8.6-10.4) mg/dl Phosphorus 8.8 H (2.5-4.5) mg/dL Magnesium 2.3 (1.6-2.3) mg/dL Total Bilirubin 1.6 H (0.2-1.3) mg/dL AST 488 H D (17-59) U/L ALT 328 H D (21-72) U/L Alkaline Phosphatase 167 H (38-126) U/L Total Protein 6.5 (6.3-8.3) g/dL Albumin 2.6 L (3.5-5.0) g/dL Globulin 3.9 (2.2-3.9) gm/dL Albumin/Globulin Ratio 0.7 L (1.0-2.1) Arterial Blood Potassium (3.6-5.2) mmol/L Venous Blood Potassium (3.6-5.2) mmol/L Hep Bs Antigen Negative (NEGATIVE) Hep Bs Antibody Negative (NEGATIVE) Hep B Core IgM Ab Negative (NEGATIVE) Hepatitis C Antibody Negative (NEGATIVE) 07/31/17 07/30/17 07/30/17 Range/Units 06:22 12:16 12:03 WBC 16.7 H (4.8-10.8) K/uL RBC 2.51 L (4.40-5.90) Mil/uL Hgb 6.9 L (12.0-18.0) g/dL Hct 21.8 L (35.0-51.0) % MCV 86.8 (80.0-94.0) fL MCH 27.5 (27.0-31.0) pg MCHC 31.7 L (33.0-37.0) g/dL RDW 16.9 H (11.5-14.5) % Plt Count 242 (130-400) K/uL MPV 9.5 (7.2-11.7) fL Neut % (Auto) 88.4 H (50.0-75.0) % Lymph % (Auto) 7.3 L (20.0-40.0) % Weber % (Auto) 4.1 (0.0-10.0) % Eos % (Auto) 0.1 (0.0-4.0) % Baso % (Auto) 0.1 (0.0-2.0) % Neut # 14.7 H (1.8-7.0) K/uL Lymph # 1.2 (1.0-4.3) K/uL Weber # 0.7 (0.0-0.8) K/uL Eos # 0.0 (0.0-0.7) K/uL Baso # 0.0 (0.0-0.2) K/uL Neutrophils % (Manual) 94 H (50-75) % Lymphocytes % (Manual) 4 L (20-40) % Monocytes % (Manual) 2 (0-10) % Nucleated RBC % 1 H (0-0) % Platelet Estimate Normal (NORMAL) Polychromasia Slight Hypochromasia (manual) Moderate Anisocytosis (manual) Slight Microcytosis (manual) Slight Target Cells Slight Tear Drop Cells Slight Ovalocytes Slight [place] Cells Slight PT 16.0 H (9.7-12.2) SECONDS INR 1.4 Puncture Site pCO2 (35-45) mm/Hg pO2 26 L (30-55) mm/Hg HCO3 (21-28) mmol/L ABG pH (7.35-7.45) ABG Total CO2 (22-28) mmol/L ABG O2 Saturation (95-98) % ABG Base Excess (-2.0-3.0) mmol/L Elder Test ABG Potassium (3.6-5.2) mmol/L VBG pH 7.39 (7.32-7.43) VBG pCO2 23 L (40-60) mmHg VBG HCO3 16.5 mmol/L VBG Total CO2 14.6 L (22-28) mmol/L VBG O2 Sat (Calc) 46.1 (40-65) % VBG Base Excess -9.0 L (0.0-2.0) mmol/L VBG Potassium 5.4 H (3.6-5.2) mmol/L A-a O2 Difference mm/Hg Respiratory Index Sodium 142.0 (132-148) mmol/l Chloride 107.0 (98-107) mmol/L Glucose 84 (75-110) mg/dl Lactate 7.6 H* (0.7-2.1) mmol/L Liter Flow FiO2 % Crit Value Called To Crit Value Called By Neymar hernadez,pump and still operator Crit Value Read Back Y Blood Gas Notified Time 1210 Potassium (3.6-5.2) mmol/L Carbon Dioxide (22-30) mmol/L Anion Gap (10-20) BUN (9-20) mg/dL Creatinine (0.8-1.5) mg/dL Est GFR ( Amer) Est GFR (Non-Af Amer) POC Glucose (mg/dL) (65-110) mg/dL Random Glucose (75-110) mg/dL Calcium (8.6-10.4) mg/dl Phosphorus (2.5-4.5) mg/dL Magnesium (1.6-2.3) mg/dL Total Bilirubin (0.2-1.3) mg/dL AST (17-59) U/L ALT (21-72) U/L Alkaline Phosphatase (38-126) U/L Total Protein (6.3-8.3) g/dL Albumin (3.5-5.0) g/dL Globulin (2.2-3.9) gm/dL Albumin/Globulin Ratio (1.0-2.1) Arterial Blood Potassium (3.6-5.2) mmol/L Venous Blood Potassium 5.4 H (3.6-5.2) mmol/L Hep Bs Antigen (NEGATIVE) Hep Bs Antibody (NEGATIVE) Hep B Core IgM Ab (NEGATIVE) Hepatitis C Antibody (NEGATIVE) Laboratory Results - last 24 hr 07/30/17 07/30/17 07/31/17 12:03 12:16 06:22 WBC 16.7 H RBC 2.51 L Hgb 6.9 L Hct 21.8 L MCV 86.8 MCH 27.5 MCHC 31.7 L RDW 16.9 H Plt Count 242 MPV 9.5 Neut % (Auto) 88.4 H Lymph % (Auto) 7.3 L Weber % (Auto) 4.1 Eos % (Auto) 0.1 Baso % (Auto) 0.1 Neut # 14.7 H Lymph # 1.2 Weber # 0.7 Eos # 0.0 Baso # 0.0 Neutrophils % (Manual) 94 H Lymphocytes % (Manual) 4 L Monocytes % (Manual) 2 Nucleated RBC % 1 H Platelet Estimate Normal Polychromasia Slight Hypochromasia (manual) Moderate Anisocytosis (manual) Slight Microcytosis (manual) Slight Target Cells Slight Tear Drop Cells Slight Ovalocytes Slight [place] Cells Slight PT 16.0 H INR 1.4 Puncture Site pCO2 pO2 26 L HCO3 ABG pH ABG Total CO2 ABG O2 Saturation ABG Base Excess Elder Test ABG Potassium VBG pH 7.39 VBG pCO2 23 L VBG HCO3 16.5 VBG Total CO2 14.6 L VBG O2 Sat (Calc) 46.1 VBG Base Excess -9.0 L VBG Potassium 5.4 H A-a O2 Difference Respiratory Index Sodium 142.0 Chloride 107.0 Glucose 84 Lactate 7.6 H* Liter Flow FiO2 Crit Value Called To Crit Value Called By Neymar hernadez,francisco Crit Value Read Back Y Blood Gas Notified Time 1210 Potassium Carbon Dioxide Anion Gap BUN Creatinine Est GFR ( Amer) Est GFR (Non-Af Amer) POC Glucose (mg/dL) Random Glucose Calcium Phosphorus Magnesium Total Bilirubin AST ALT Alkaline Phosphatase Total Protein Albumin Globulin Albumin/Globulin Ratio Arterial Blood Potassium Venous Blood Potassium 5.4 H Hep Bs Antigen Hep Bs Antibody Hep B Core IgM Ab Hepatitis C Antibody 07/31/17 07/31/17 07/31/17 06:22 06:22 06:22 WBC RBC Hgb Hct MCV MCH MCHC RDW Plt Count MPV Neut % (Auto) Lymph % (Auto) Weber % (Auto) Eos % (Auto) Baso % (Auto) Neut # Lymph # Weber # Eos # Baso # Neutrophils % (Manual) Lymphocytes % (Manual) Monocytes % (Manual) Nucleated RBC % Platelet Estimate Polychromasia Hypochromasia (manual) Anisocytosis (manual) Microcytosis (manual) Target Cells Tear Drop Cells Ovalocytes Rosalie Cells PT INR Puncture Site pCO2 pO2 HCO3 ABG pH ABG Total CO2 ABG O2 Saturation ABG Base Excess Elder Test ABG Potassium VBG pH VBG pCO2 VBG HCO3 VBG Total CO2 VBG O2 Sat (Calc) VBG Base Excess VBG Potassium A-a O2 Difference Respiratory Index Sodium 140 Chloride 101 Glucose Lactate Liter Flow FiO2 Crit Value Called To Crit Value Called By Crit Value Read Back Blood Gas Notified Time Potassium 5.4 H Carbon Dioxide 14 L Anion Gap 30 H BUN 122 H* Creatinine 5.7 H Est GFR ( Amer) 12 Est GFR (Non-Af Amer) 10 POC Glucose (mg/dL) Random Glucose 66 L Calcium 7.3 L Phosphorus 8.8 H Magnesium 2.3 Total Bilirubin 1.6 H AST 488 H D ALT 328 H D Alkaline Phosphatase 167 H Total Protein 6.5 Albumin 2.6 L Globulin 3.9 Albumin/Globulin Ratio 0.7 L Arterial Blood Potassium Venous Blood Potassium Hep Bs Antigen Negative Hep Bs Antibody Negative Hep B Core IgM Ab Negative Hepatitis C Antibody Negative 07/31/17 07/31/17 07/31/17 08:44 10:57 11:13 WBC 16.4 H RBC 2.51 L Hgb 7.0 L Hct 21.6 L MCV 85.9 MCH 27.8 MCHC 32.3 L RDW 16.6 H Plt Count 252 MPV 9.2 Neut % (Auto) Lymph % (Auto) Weber % (Auto) Eos % (Auto) Baso % (Auto) Neut # Lymph # Weber # Eos # Baso # Neutrophils % (Manual) Lymphocytes % (Manual) Monocytes % (Manual) Nucleated RBC % Platelet Estimate Polychromasia Hypochromasia (manual) Anisocytosis (manual) Microcytosis (manual) Target Cells Tear Drop Cells Ovalocytes [place] Cells PT INR Puncture Site Rra pCO2 22 L pO2 79 L HCO3 24.0 ABG pH 7.55 H ABG Total CO2 19.9 L ABG O2 Saturation 96.2 ABG Base Excess -1.2 Elder Test Po ABG Potassium 4.4 VBG pH VBG pCO2 VBG HCO3 VBG Total CO2 VBG O2 Sat (Calc) VBG Base Excess VBG Potassium A-a O2 Difference 143.0 Respiratory Index 1.8 Sodium 139.0 Chloride 106.0 Glucose 87 Lactate 2.9 H Liter Flow 4.0 FiO2 35.0 Crit Value Called To Crit Value Called By Crit Value Read Back Blood Gas Notified Time Potassium Carbon Dioxide Anion Gap BUN Creatinine Est GFR ( Amer) Est GFR (Non-Af Amer) POC Glucose (mg/dL) 106 Random Glucose Calcium Phosphorus Magnesium Total Bilirubin AST ALT Alkaline Phosphatase Total Protein Albumin Globulin Albumin/Globulin Ratio Arterial Blood Potassium 4.4 Venous Blood Potassium Hep Bs Antigen Hep Bs Antibody Hep B Core IgM Ab Hepatitis C Antibody Review of Systems - Review of Systems Systems not reviewed;Unavailable: Altered Mental Status Critical Care Progress Note - Nutrition Nutrition: Nutrition Category Date Time Status Pureed [Dysphagia/Modified Consistency Diet] [DIET] Diets 07/26/17 Dinner Active Assessment/Plan - Assessment and Plan (Free Text) Assessment: 82 y/o M with PMHx of CAD, HTN, CKD, dementia and obstructive uropathy requiring wise admitted 07/24 with lethargy and fever from the care home. Patient was transferred to the ICU 07/30 for respiratory distress and hypotension. Plan: Neuro: lethargic, dementia - tylenol 650 mg PO Q6 PRN pain Cardio: hypotensive secondary to sepsis, hx of CHF, CAD - EKG (07/26): 1st degree AV block, right axis deviation, possible anterolateral subendocardial injury - Echo (08/01/16): LVEF 65-70%, left atrial dilation, LVH - Dr. Lynn Thrasher consulted, help appreciated - aspirin 81 mg PO QD - plavix 75 mg PO QD - holding hydralazine - hold lopressor - levophed 5mcg Pulm: possible pneumonia - Saturating 100% - CXR (07/30): opacification of the mid to lower lung zones bilaterally with small bilateral pleural effusions - Respiratory alkalosis: 7.47/ pCO2 19/HCO3 - Arterial lactate (07/30): 4.6 Nephro: acute on chronic kidney disease, obstructive uropathy - BUN/Cr (07/31): 122/Cr 5.7 - Dr. Peterson consulted, help appreciated - Dr. Parada consulted, help appreciated - Triple lumen temporary dialysis catheter placed in L groin by vascular surgery (07/30) - Dialyzed last night - Bicarb drip GI: dysphagia, transaminitis - pureed diet - LFTs increased from 07/30: AST/488/ALT 328/ALP: 167 - continue to hold crestor - HBsAg, HBsAb, HBcAb, HCV Ab all negative (07/31) : BPH, urosepsis - Dr. Sparks consulted, help appreciated - cystoscopy by Dr. Sparks cancalled - flomax 0.4 mg PO daily - finasteride 5 mg PO daily Endo: hypothyroidism - levothyroxine 25mcg PO daily Hematology: worsening anemia, leukocytosis likely secondary to sepsis - Hgb (07/31): 6.9, repeat HgB 7.0, patient to be transfused 1 u PRBC - WBC (07/31): 16.7 ID: urosepsis, possible pneumonia - urine cx (07/24): final culture grew klebsiella pneumoniae and enterococcus faecalis, both sensitive to ciprofloxacin - Dr. Cantu consulted, help appreciated - Code sepsis called in ICU (07/30) - ciprofloxacin 200mg @100 IVPB - blood cultures/urine culures/sputum cultures (07/30): results pending Derm: bilateral heel wounds - Wound care consulted PPX: - DVT: SCDs - hold heparin - GI: pepcid 20mg IVP daily <Chip Urias - Last Filed: 07/31/17 16:42> CCU Objective - Vital Signs / Intake & Output Vital Signs (Last 4 hours): Vital Signs Temp Pulse Resp BP Pulse Ox 07/31/17 16:23 97.5 F L 83 19 102/62 07/31/17 16:19 97.5 F L 82 18 103/64 07/31/17 15:19 98.4 F 79 19 102/52 L 07/31/17 14:50 98.5 F 79 18 95/53 L 07/31/17 14:20 98 F 86 19 95/51 L 07/31/17 14:05 97.7 F 81 18 95/56 L 07/31/17 13:50 97.8 F 80 18 93/53 L 07/31/17 13:00 76 18 91/47 L 97 Intake and Output (Last 8hrs): Intake & Output 07/31/17 07/31/17 07/31/17 06:59 14:59 22:59 Intake Total 340 587.8 281 Output Total 3 38 Balance 337 549.8 281 Weight 175 lb 14.862 oz Intake: Intake, IV Amount 340 587.8 Left Femoral 97.8 Right Forearm 140 490 Right Wrist 200 0 Blood Product 0 281 Apheresis Rbc Cp2d As3 Lr 0 281 2nd Unit [id number] Output: Urine 3 38 Urethral (Wise) 3 38 Other: # Bowel Movements 0 0 - Medications Active Medications: Active Medications Generic Name Dose Route Start Last Admin Trade Name Freq PRN Reason Stop Dose Admin Acetaminophen 650 mg 07/24/17 16:35 Tylenol 325mg Tab PO Q6 PRN Fever >100.4 F Aspirin 81 mg 07/25/17 10:00 07/31/17 10:17 Ecotrin PO 81 mg DAILY DAWIT Administration Clopidogrel Bisulfate 75 mg 07/25/17 10:00 07/31/17 10:17 Plavix PO 75 mg DAILY DAWIT Administration Famotidine 20 mg 07/31/17 10:00 07/31/17 10:17 Pepcid IVP 20 mg DAILY DAWIT Administration Finasteride 5 mg 07/25/17 10:00 07/31/17 10:19 Proscar PO 5 mg DAILY DAWIT Administration Heparin Sodium (Porcine) 5,000 units 07/30/17 14:30 07/31/17 02:30 Heparin SC Not Given Q12H DAWIT Hydralazine HCl 25 mg 07/24/17 18:00 07/29/17 17:38 Apresoline PO Not Given BID DAWIT Sodium Bicarbonate 150 meq/ 1,150 mls @ 70 mls/hr 07/28/17 23:30 07/31/17 10: 29 Dextrose IV 70 mls/hr .[id number] DAWIT Administration Ciprofloxacin 100 mls @ 67 mls/hr 07/29/17 13:30 07/31/17 13:31 Cipro 200mg/100ml D5w IVPB 67 mls/hr Q12H DAWIT Administration Norepinephrine Bitartrate 4 mg 254 mls @ 0 mls/hr 07/31/17 02:35 07/31/17 02: 30 / Dextrose IV 9.4 mls/hr .Q0M PRN Administration UD Levothyroxine Sodium 25 mcg 07/25/17 06:30 07/31/17 07:28 Synthroid PO 25 mcg DAILY@0630 DAWIT Administration Metoprolol Tartrate 25 mg 07/26/17 10:30 07/30/17 18:16 Lopressor PO Not Given BID [facility] Tamsulosin HCl 0.4 mg 07/25/17 10:00 07/31/17 10:17 Flomax PO 0.4 mg DAILY DAWIT Administration - Patient Studies Lab Studies: Microbiology Studies 07/26/17 11:45 Blood Culture - Final Blood NO GROWTH AFTER 5 DAYS Gram Stain - Final TEST NOT PERFORMED 07/26/17 11:00 Blood Culture - Final Blood NO GROWTH AFTER 5 DAYS Gram Stain - Final TEST NOT PERFORMED 07/30/17 09:54 Blood Culture - Preliminary Blood-Venous NO GROWTH AFTER 24 HOURS 07/30/17 09:54 Blood Culture - Preliminary Blood-Venous NO GROWTH AFTER 24 HOURS 07/29/17 16:51 Urine Culture - Final Urine,Wise No Growth (<1,000 CFU/ML) 07/30/17 08:48 MRSA Culture (Admit) - Final Naris MRSA NOT DETECTED Lab Studies 07/31/17 07/31/17 07/31/17 Range/Units 12:18 11:13 10:57 WBC 16.4 H (4.8-10.8) K/uL RBC 2.51 L (4.40-5.90) Mil/uL Hgb 7.0 L (12.0-18.0) g/dL Hct 21.6 L (35.0-51.0) % MCV 85.9 (80.0-94.0) fL MCH 27.8 (27.0-31.0) pg MCHC 32.3 L (33.0-37.0) g/dL RDW 16.6 H (11.5-14.5) % Plt Count 252 (130-400) K/uL MPV 9.2 (7.2-11.7) fL Neut % (Auto) (50.0-75.0) % Lymph % (Auto) (20.0-40.0) % Weber % (Auto) (0.0-10.0) % Eos % (Auto) (0.0-4.0) % Baso % (Auto) (0.0-2.0) % Neut # (1.8-7.0) K/uL Lymph # (1.0-4.3) K/uL Weber # (0.0-0.8) K/uL Eos # (0.0-0.7) K/uL Baso # (0.0-0.2) K/uL Neutrophils % (Manual) (50-75) % Lymphocytes % (Manual) (20-40) % Monocytes % (Manual) (0-10) % Nucleated RBC % (0-0) % Platelet Estimate (NORMAL) Polychromasia Hypochromasia (manual) Anisocytosis (manual) Microcytosis (manual) Target Cells Tear Drop Cells Ovalocytes [place] Cells Puncture Site pCO2 (35-45) mm/Hg pO2 (80-100) mm/Hg HCO3 (21-28) mmol/L ABG pH (7.35-7.45) ABG Total CO2 (22-28) mmol/L ABG O2 Saturation (95-98) % ABG Base Excess (-2.0-3.0) mmol/L Elder Test ABG Potassium (3.6-5.2) mmol/L A-a O2 Difference mm/Hg Respiratory Index Glucose (75-110) mg/dl Lactate (0.7-2.1) mmol/L Liter Flow FiO2 % Sodium (132-148) mmol/L Potassium (3.6-5.2) mmol/L Chloride (98-107) mmol/L Carbon Dioxide (22-30) mmol/L Anion Gap (10-20) BUN (9-20) mg/dL Creatinine (0.8-1.5) mg/dL Est GFR ( Amer) Est GFR (Non-Af Amer) POC Glucose (mg/dL) 106 (65-110) mg/dL Random Glucose (75-110) mg/dL Calcium (8.6-10.4) mg/dl Phosphorus (2.5-4.5) mg/dL Magnesium (1.6-2.3) mg/dL Total Bilirubin (0.2-1.3) mg/dL AST (17-59) U/L ALT (21-72) U/L Alkaline Phosphatase (38-126) U/L Total Protein (6.3-8.3) g/dL Albumin (3.5-5.0) g/dL Globulin (2.2-3.9) gm/dL Albumin/Globulin Ratio (1.0-2.1) Arterial Blood Potassium (3.6-5.2) mmol/L Hep Bs Antigen (NEGATIVE) Hep Bs Antibody (NEGATIVE) Hep B Core IgM Ab (NEGATIVE) Hepatitis C Antibody (NEGATIVE) Blood Type O POSITIVE Antibody Screen Negative 07/31/17 07/31/17 07/31/17 Range/Units 08:44 06:22 06:22 WBC (4.8-10.8) K/uL RBC (4.40-5.90) Mil/uL Hgb (12.0-18.0) g/dL Hct (35.0-51.0) % MCV (80.0-94.0) fL MCH (27.0-31.0) pg MCHC (33.0-37.0) g/dL RDW (11.5-14.5) % Plt Count (130-400) K/uL MPV (7.2-11.7) fL Neut % (Auto) (50.0-75.0) % Lymph % (Auto) (20.0-40.0) % Weber % (Auto) (0.0-10.0) % Eos % (Auto) (0.0-4.0) % Baso % (Auto) (0.0-2.0) % Neut # (1.8-7.0) K/uL Lymph # (1.0-4.3) K/uL Weber # (0.0-0.8) K/uL Eos # (0.0-0.7) K/uL Baso # (0.0-0.2) K/uL Neutrophils % (Manual) (50-75) % Lymphocytes % (Manual) (20-40) % Monocytes % (Manual) (0-10) % Nucleated RBC % (0-0) % Platelet Estimate (NORMAL) Polychromasia Hypochromasia (manual) Anisocytosis (manual) Microcytosis (manual) Target Cells Tear Drop Cells Ovalocytes [place] Cells Puncture Site Rra pCO2 22 L (35-45) mm/Hg pO2 79 L (80-100) mm/Hg HCO3 24.0 (21-28) mmol/L ABG pH 7.55 H (7.35-7.45) ABG Total CO2 19.9 L (22-28) mmol/L ABG O2 Saturation 96.2 (95-98) % ABG Base Excess -1.2 (-2.0-3.0) mmol/L Elder Test Po ABG Potassium 4.4 (3.6-5.2) mmol/L A-a O2 Difference 143.0 mm/Hg Respiratory Index 1.8 Glucose 87 (75-110) mg/dl Lactate 2.9 H (0.7-2.1) mmol/L Liter Flow 4.0 FiO2 35.0 % Sodium 139.0 (132-148) mmol/L Potassium (3.6-5.2) mmol/L Chloride 106.0 (98-107) mmol/L Carbon Dioxide (22-30) mmol/L Anion Gap (10-20) BUN (9-20) mg/dL Creatinine (0.8-1.5) mg/dL Est GFR ( Amer) Est GFR (Non-Af Amer) POC Glucose (mg/dL) (65-110) mg/dL Random Glucose (75-110) mg/dL Calcium (8.6-10.4) mg/dl Phosphorus (2.5-4.5) mg/dL Magnesium (1.6-2.3) mg/dL Total Bilirubin (0.2-1.3) mg/dL AST (17-59) U/L ALT (21-72) U/L Alkaline Phosphatase (38-126) U/L Total Protein (6.3-8.3) g/dL Albumin (3.5-5.0) g/dL Globulin (2.2-3.9) gm/dL Albumin/Globulin Ratio (1.0-2.1) Arterial Blood Potassium 4.4 (3.6-5.2) mmol/L Hep Bs Antigen (NEGATIVE) Hep Bs Antibody Negative (NEGATIVE) Hep B Core IgM Ab Negative (NEGATIVE) Hepatitis C Antibody Negative (NEGATIVE) Blood Type Antibody Screen 07/31/17 07/31/17 Range/Units 06:22 06:22 WBC 16.7 H (4.8-10.8) K/uL RBC 2.51 L (4.40-5.90) Mil/uL Hgb 6.9 L (12.0-18.0) g/dL Hct 21.8 L (35.0-51.0) % MCV 86.8 (80.0-94.0) fL MCH 27.5 (27.0-31.0) pg MCHC 31.7 L (33.0-37.0) g/dL RDW 16.9 H (11.5-14.5) % Plt Count 242 (130-400) K/uL MPV 9.5 (7.2-11.7) fL Neut % (Auto) 88.4 H (50.0-75.0) % Lymph % (Auto) 7.3 L (20.0-40.0) % Weber % (Auto) 4.1 (0.0-10.0) % Eos % (Auto) 0.1 (0.0-4.0) % Baso % (Auto) 0.1 (0.0-2.0) % Neut # 14.7 H (1.8-7.0) K/uL Lymph # 1.2 (1.0-4.3) K/uL Weber # 0.7 (0.0-0.8) K/uL Eos # 0.0 (0.0-0.7) K/uL Baso # 0.0 (0.0-0.2) K/uL Neutrophils % (Manual) 94 H (50-75) % Lymphocytes % (Manual) 4 L (20-40) % Monocytes % (Manual) 2 (0-10) % Nucleated RBC % 1 H (0-0) % Platelet Estimate Normal (NORMAL) Polychromasia Slight Hypochromasia (manual) Moderate Anisocytosis (manual) Slight Microcytosis (manual) Slight Target Cells Slight Tear Drop Cells Slight Ovalocytes Slight Rosalie Cells Slight Puncture Site pCO2 (35-45) mm/Hg pO2 (80-100) mm/Hg HCO3 (21-28) mmol/L ABG pH (7.35-7.45) ABG Total CO2 (22-28) mmol/L ABG O2 Saturation (95-98) % ABG Base Excess (-2.0-3.0) mmol/L Elder Test ABG Potassium (3.6-5.2) mmol/L A-a O2 Difference mm/Hg Respiratory Index Glucose (75-110) mg/dl Lactate (0.7-2.1) mmol/L Liter Flow FiO2 % Sodium 140 (132-148) mmol/L Potassium 5.4 H (3.6-5.2) mmol/L Chloride 101 (98-107) mmol/L Carbon Dioxide 14 L (22-30) mmol/L Anion Gap 30 H (10-20) BUN 122 H* (9-20) mg/dL Creatinine 5.7 H (0.8-1.5) mg/dL Est GFR ( Amer) 12 Est GFR (Non-Af Amer) 10 POC Glucose (mg/dL) (65-110) mg/dL Random Glucose 66 L (75-110) mg/dL Calcium 7.3 L (8.6-10.4) mg/dl Phosphorus 8.8 H (2.5-4.5) mg/dL Magnesium 2.3 (1.6-2.3) mg/dL Total Bilirubin 1.6 H (0.2-1.3) mg/dL AST 488 H D (17-59) U/L ALT 328 H D (21-72) U/L Alkaline Phosphatase 167 H (38-126) U/L Total Protein 6.5 (6.3-8.3) g/dL Albumin 2.6 L (3.5-5.0) g/dL Globulin 3.9 (2.2-3.9) gm/dL Albumin/Globulin Ratio 0.7 L (1.0-2.1) Arterial Blood Potassium (3.6-5.2) mmol/L Hep Bs Antigen Negative (NEGATIVE) Hep Bs Antibody (NEGATIVE) Hep B Core IgM Ab (NEGATIVE) Hepatitis C Antibody (NEGATIVE) Blood Type Antibody Screen Laboratory Results - last 24 hr 07/31/17 07/31/17 07/31/17 06:22 06:22 06:22 WBC 16.7 H RBC 2.51 L Hgb 6.9 L Hct 21.8 L MCV 86.8 MCH 27.5 MCHC 31.7 L RDW 16.9 H Plt Count 242 MPV 9.5 Neut % (Auto) 88.4 H Lymph % (Auto) 7.3 L Weber % (Auto) 4.1 Eos % (Auto) 0.1 Baso % (Auto) 0.1 Neut # 14.7 H Lymph # 1.2 Weber # 0.7 Eos # 0.0 Baso # 0.0 Neutrophils % (Manual) 94 H Lymphocytes % (Manual) 4 L Monocytes % (Manual) 2 Nucleated RBC % 1 H Platelet Estimate Normal Polychromasia Slight Hypochromasia (manual) Moderate Anisocytosis (manual) Slight Microcytosis (manual) Slight Target Cells Slight Tear Drop Cells Slight Ovalocytes Slight Rosalie Cells Slight Puncture Site pCO2 pO2 HCO3 ABG pH ABG Total CO2 ABG O2 Saturation ABG Base Excess Elder Test ABG Potassium A-a O2 Difference Respiratory Index Glucose Lactate Liter Flow FiO2 Sodium 140 Potassium 5.4 H Chloride 101 Carbon Dioxide 14 L Anion Gap 30 H BUN 122 H* Creatinine 5.7 H Est GFR ( Amer) 12 Est GFR (Non-Af Amer) 10 POC Glucose (mg/dL) Random Glucose 66 L Calcium 7.3 L Phosphorus 8.8 H Magnesium 2.3 Total Bilirubin 1.6 H AST 488 H D ALT 328 H D Alkaline Phosphatase 167 H Total Protein 6.5 Albumin 2.6 L Globulin 3.9 Albumin/Globulin Ratio 0.7 L Arterial Blood Potassium Hep Bs Antigen Negative Hep Bs Antibody Hep B Core IgM Ab Negative Hepatitis C Antibody Negative Blood Type Antibody Screen 07/31/17 07/31/17 07/31/17 06:22 08:44 10:57 WBC 16.4 H RBC 2.51 L Hgb 7.0 L Hct 21.6 L MCV 85.9 MCH 27.8 MCHC 32.3 L RDW 16.6 H Plt Count 252 MPV 9.2 Neut % (Auto) Lymph % (Auto) Weber % (Auto) Eos % (Auto) Baso % (Auto) Neut # Lymph # Weber # Eos # Baso # Neutrophils % (Manual) Lymphocytes % (Manual) Monocytes % (Manual) Nucleated RBC % Platelet Estimate Polychromasia Hypochromasia (manual) Anisocytosis (manual) Microcytosis (manual) Target Cells Tear Drop Cells Ovalocytes Rosalie Cells Puncture Site Rra pCO2 22 L pO2 79 L HCO3 24.0 ABG pH 7.55 H ABG Total CO2 19.9 L ABG O2 Saturation 96.2 ABG Base Excess -1.2 Elder Test Po ABG Potassium 4.4 A-a O2 Difference 143.0 Respiratory Index 1.8 Glucose 87 Lactate 2.9 H Liter Flow 4.0 FiO2 35.0 Sodium 139.0 Potassium Chloride 106.0 Carbon Dioxide Anion Gap BUN Creatinine Est GFR ( Amer) Est GFR (Non-Af Amer) POC Glucose (mg/dL) Random Glucose Calcium Phosphorus Magnesium Total Bilirubin AST ALT Alkaline Phosphatase Total Protein Albumin Globulin Albumin/Globulin Ratio Arterial Blood Potassium 4.4 Hep Bs Antigen Hep Bs Antibody Negative Hep B Core IgM Ab Hepatitis C Antibody Blood Type Antibody Screen 07/31/17 07/31/17 11:13 12:18 WBC RBC Hgb Hct MCV MCH MCHC RDW Plt Count MPV Neut % (Auto) Lymph % (Auto) Weber % (Auto) Eos % (Auto) Baso % (Auto) Neut # Lymph # Weber # Eos # Baso # Neutrophils % (Manual) Lymphocytes % (Manual) Monocytes % (Manual) Nucleated RBC % Platelet Estimate Polychromasia Hypochromasia (manual) Anisocytosis (manual) Microcytosis (manual) Target Cells Tear Drop Cells Ovalocytes Rosalie Cells Puncture Site pCO2 pO2 HCO3 ABG pH ABG Total CO2 ABG O2 Saturation ABG Base Excess Elder Test ABG Potassium A-a O2 Difference Respiratory Index Glucose Lactate Liter Flow FiO2 Sodium Potassium Chloride Carbon Dioxide Anion Gap BUN Creatinine Est GFR ( Amer) Est GFR (Non-Af Amer) POC Glucose (mg/dL) 106 Random Glucose Calcium Phosphorus Magnesium Total Bilirubin AST ALT Alkaline Phosphatase Total Protein Albumin Globulin Albumin/Globulin Ratio Arterial Blood Potassium Hep Bs Antigen Hep Bs Antibody Hep B Core IgM Ab Hepatitis C Antibody Blood Type O POSITIVE Antibody Screen Negative Critical Care Progress Note - Nutrition Nutrition: Nutrition Category Date Time Status Pureed [Dysphagia/Modified Consistency Diet] [DIET] Diets 07/26/17 Dinner Active Attending/Attestation - Attestation I have personally seen and examined this patient.: Yes I have fully participated in the care of the patient.: Yes I have reviewed all pertinent clinical information: Yes Notes (Text): 07/31/17 16:40 Patient seen and examined in the intensive care unit. Case discussed with all staff in the morning rounds. Patient started on pressors overnight for hypotension Status post dialysis last night Transfuse packed RBCs No active bleeding noted Continue antibiotics and follow up culture and sensitivity Case discussed with family at length
--- NOTE | 2017-07-31 12:35 | CP.PCM.PN ---
Subjective - Date & Time of Evaluation Date of Evaluation: 07/31/17 Time of Evaluation: 12:34 - Subjective Subjective: confuse,got dyalised Objective - Vital Signs/Intake and Output Vital Signs (last 24 hours): Temp Pulse Resp BP Pulse Ox 97.8 F 79 20 99/48 L 98 07/31/17 12:00 07/31/17 12:00 07/31/17 12:00 07/31/17 12:00 07/31/17 12:00 Intake and Output: 07/31/17 07/31/17 06:59 18:59 Intake Total 1020 502.8 Output Total 16 38 Balance 1004 464.8 - Medications Medications: Current Medications Acetaminophen (Tylenol 325mg Tab) 650 mg PO Q6 PRN PRN Reason: Fever >100.4 F Aspirin (Ecotrin) 81 mg PO DAILY [facility] Last Admin: 07/31/17 10:17 Dose: 81 mg Clopidogrel Bisulfate (Plavix) 75 mg PO DAILY [facility] Last Admin: 07/31/17 10:17 Dose: 75 mg Famotidine (Pepcid) 20 mg IVP DAILY [facility] Last Admin: 07/31/17 10:17 Dose: 20 mg Finasteride (Proscar) 5 mg PO DAILY [facility] Last Admin: 07/31/17 10:19 Dose: 5 mg Heparin Sodium (Porcine) (Heparin) 5,000 units SC Q12H [facility] Last Admin: 07/31/17 02:30 Dose: Not Given Hydralazine HCl (Apresoline) 25 mg PO BID [facility] Last Admin: 07/29/17 17:38 Dose: Not Given Sodium Bicarbonate 150 meq/ (Dextrose) 1,150 mls @ 70 mls/hr IV .[id number] [facility] Last Admin: 07/31/17 10:29 Dose: 70 mls/hr Ciprofloxacin (Cipro 200mg/100ml D5w) 100 mls @ 67 mls/hr IVPB Q12H [facility] Last Admin: 07/31/17 01:30 Dose: 67 mls/hr Norepinephrine Bitartrate 4 mg (/ Dextrose) 254 mls @ 0 mls/hr IV .Q0M PRN PRN Reason: UD Last Admin: 07/31/17 02:30 Dose: 9.4 mls/hr Levothyroxine Sodium (Synthroid) 25 mcg PO DAILY@0630 [facility] Last Admin: 07/31/17 07:28 Dose: 25 mcg Metoprolol Tartrate (Lopressor) 25 mg PO BID [facility] Last Admin: 07/30/17 18:16 Dose: Not Given Tamsulosin HCl (Flomax) 0.4 mg PO DAILY [facility] Last Admin: 07/31/17 10:17 Dose: 0.4 mg - Labs Labs: 07/31/17 10:57 07/31/17 06:22 PT 16.0 SECONDS (9.7-12.2) H 07/30/17 12:16 INR 1.4 07/30/17 12:16 APTT 30 SECONDS (21-34) 07/30/17 08:54 - Constitutional Appears: Chronically Ill - Head Exam Head Exam: NORMOCEPHALIC - Respiratory Exam Respiratory Exam: Clear to Ausculation Bilateral - Cardiovascular Exam Cardiovascular Exam: REGULAR RHYTHM, Murmur - GI/Abdominal Exam GI & Abdominal Exam: Soft Assessment and Plan - Assessment and Plan (Free Text) Assessment: uro sepsis.renal failure.anaemia.
--- NOTE | 2017-07-31 16:36 | CP.PCM.PN ---
Subjective - Date & Time of Evaluation Date of Evaluation: 07/31/17 Time of Evaluation: 09:00 - Subjective Subjective: weak lethargic afebrile Patient is lethargic, difficult to rouse but resting comfortably. ROS unobtainable at this time due to clinical condition. Objective - Vital Signs/Intake and Output Vital Signs (last 24 hours): Temp Pulse Resp BP Pulse Ox 97.5 F L 83 19 102/62 97 07/31/17 16:23 07/31/17 16:23 07/31/17 16:23 07/31/17 16:23 07/31/17 13:00 Intake and Output: 07/31/17 07/31/17 06:59 18:59 Intake Total 1020 868.8 Output Total 16 38 Balance 1004 830.8 - Medications Medications: Current Medications Acetaminophen (Tylenol 325mg Tab) 650 mg PO Q6 PRN PRN Reason: Fever >100.4 F Aspirin (Ecotrin) 81 mg PO DAILY [facility] Last Admin: 07/31/17 10:17 Dose: 81 mg Clopidogrel Bisulfate (Plavix) 75 mg PO DAILY [facility] [place] Last Admin: 07/31/17 10:17 Dose: 75 mg Famotidine (Pepcid) 20 mg IVP DAILY [facility] [place] Last Admin: 07/31/17 10:17 Dose: 20 mg Finasteride (Proscar) 5 mg PO DAILY [facility] Last Admin: 07/31/17 10:19 Dose: 5 mg Heparin Sodium (Porcine) (Heparin) 5,000 units SC Q12H [facility] [place] Last Admin: 07/31/17 02:30 Dose: Not Given Hydralazine HCl (Apresoline) 25 mg PO BID [facility] [place] Last Admin: 07/29/17 17:38 Dose: Not Given Sodium Bicarbonate 150 meq/ (Dextrose) 1,150 mls @ 70 mls/hr IV .[id number] [facility] [place] Last Admin: 07/31/17 10:29 Dose: 70 mls/hr Ciprofloxacin (Cipro 200mg/100ml D5w) 100 mls @ 67 mls/hr IVPB Q12H [facility] [place] Last Admin: 07/31/17 13:31 Dose: 67 mls/hr Norepinephrine Bitartrate 4 mg (/ Dextrose) 254 mls @ 0 mls/hr IV .Q0M PRN PRN Reason: UD Last Admin: 07/31/17 02:30 Dose: 9.4 mls/hr Levothyroxine Sodium (Synthroid) 25 mcg PO DAILY@0630 [facility] [place] Last Admin: 07/31/17 07:28 Dose: 25 mcg Metoprolol Tartrate (Lopressor) 25 mg PO BID [facility] [place] Last Admin: 07/30/17 18:16 Dose: Not Given Tamsulosin HCl (Flomax) 0.4 mg PO DAILY [facility] [place] Last Admin: 07/31/17 10:17 Dose: 0.4 mg - Labs Labs: 07/31/17 10:57 07/31/17 06:22 PT 16.0 SECONDS (9.7-12.2) H 07/30/17 12:16 INR 1.4 07/30/17 12:16 APTT 30 SECONDS (21-34) 07/30/17 08:54 - Constitutional Appears: Non-toxic, Confused, Chronically Ill - Head Exam Head Exam: NORMOCEPHALIC - Eye Exam Eye Exam: PERRL. absent: Scleral icterus - ENT Exam ENT Exam: Mucous Membranes Dry - Neck Exam Neck Exam: absent: Lymphadenopathy - Respiratory Exam Respiratory Exam: Decreased Breath Sounds, Rhonchi - Cardiovascular Exam Cardiovascular Exam: REGULAR RHYTHM, +S1, +S2 - GI/Abdominal Exam GI & Abdominal Exam: Distended - Rectal Exam Rectal Exam: Deferred - Exam Exam: NORMAL INSPECTION - Extremities Exam Extremities Exam: absent: Pedal Edema - Back Exam Back Exam: absent: CVA tenderness (L), CVA tenderness (R) - Neurological Exam Neurological Exam: Altered - Psychiatric Exam Psychiatric exam: Depressed Assessment and Plan (1) Fever Status: Acute (2) Leukocytosis Status: Acute (3) UTI (urinary tract infection) Status: Acute (4) Acute renal failure Status: Acute (5) Generalized weakness Status: Acute (6) Hyperkalemia Status: Acute (7) Troponin level elevated Status: Acute (8) UTI (urinary tract infection) due to Enterococcus Status: Acute (9) UTI (urinary tract infection) due to Enterococcus Status: Acute (10) UTI due to Klebsiella species Status: Acute (11) UTI due to Klebsiella species Status: Acute
--- NOTE | 2017-07-31 18:49 | CP.PCM.PN ---
Subjective - Date & Time of Evaluation Date of Evaluation: 07/31/17 Time of Evaluation: 18:49 - Subjective Subjective: pt is seen and examined, follow up consult is dictated #[phone] s/p first hd today Objective - Vital Signs/Intake and Output Vital Signs (last 24 hours): Temp Pulse Resp BP Pulse Ox 97.5 F L 82 20 102/53 L 99 07/31/17 16:23 07/31/17 18:00 07/31/17 18:00 07/31/17 18:00 07/31/17 18:00 Intake and Output: 07/31/17 07/31/17 06:59 18:59 Intake Total 1020 1293.8 Output Total 16 38 Balance 1004 1255.8 - Medications Medications: Current Medications Acetaminophen (Tylenol 325mg Tab) 650 mg PO Q6 PRN PRN Reason: Fever >100.4 F Aspirin (Ecotrin) 81 mg PO DAILY [facility] Last Admin: 07/31/17 10:17 Dose: 81 mg Clopidogrel Bisulfate (Plavix) 75 mg PO DAILY [facility] Last Admin: 07/31/17 10:17 Dose: 75 mg Famotidine (Pepcid) 20 mg IVP DAILY [facility] Last Admin: 07/31/17 10:17 Dose: 20 mg Finasteride (Proscar) 5 mg PO DAILY [facility] Last Admin: 07/31/17 10:19 Dose: 5 mg Heparin Sodium (Porcine) (Heparin) 5,000 units SC Q12H [facility] Last Admin: 07/31/17 02:30 Dose: Not Given Hydralazine HCl (Apresoline) 25 mg PO BID [facility] Last Admin: 07/29/17 17:38 Dose: Not Given Sodium Bicarbonate 150 meq/ (Dextrose) 1,150 mls @ 70 mls/hr IV .[id number] [facility] Last Admin: 07/31/17 17:49 Dose: Not Given Ciprofloxacin (Cipro 200mg/100ml D5w) 100 mls @ 67 mls/hr IVPB Q12H [facility] Last Admin: 07/31/17 13:31 Dose: 67 mls/hr Norepinephrine Bitartrate 4 mg (/ Dextrose) 254 mls @ 0 mls/hr IV .Q0M PRN PRN Reason: Last Admin: 07/31/17 02:30 Dose: 9.4 mls/hr Levothyroxine Sodium (Synthroid) 25 mcg PO DAILY@0630 [facility] Last Admin: 07/31/17 07:28 Dose: 25 mcg Metoprolol Tartrate (Lopressor) 25 mg PO BID [facility] Last Admin: 07/30/17 18:16 Dose: Not Given Tamsulosin HCl (Flomax) 0.4 mg PO DAILY [facility] Last Admin: 07/31/17 10:17 Dose: 0.4 mg - Labs Labs: 07/31/17 10:57 07/31/17 06:22 PT 16.0 SECONDS (9.7-12.2) H 07/30/17 12:16 INR 1.4 07/30/17 12:16 APTT 30 SECONDS (21-34) 07/30/17 08:54
[2017-07-31] MEDS: Sodium Chloride 0.9% 1,000 ML IV SCH (19:07)
--- NOTE | 2017-07-31 23:00 | CP.PCM.PN ---
Subjective - Date & Time of Evaluation Date of Evaluation: 07/31/17 Time of Evaluation: 20:00 - Subjective Subjective: Patient is seen and exaimned at bedside, is looking weak lethargic. Pt is afebrile ,difficult to rouse but resting comfortably. Objective - Vital Signs/Intake and Output Vital Signs (last 24 hours): Temp Pulse Resp BP Pulse Ox 98.7 F 83 16 96/54 L 100 07/31/17 22:00 07/31/17 22:09 07/31/17 22:09 07/31/17 22:09 07/31/17 22:09 Intake and Output: 07/31/17 08/01/17 18:59 06:59 Intake Total 1293.8 326.0 Output Total 103 30 Balance 1190.8 296.0 - Medications Medications: Current Medications Acetaminophen (Tylenol 325mg Tab) 650 mg PO Q6 PRN PRN Reason: Fever >100.4 F Aspirin (Ecotrin) 81 mg PO DAILY [facility] Last Admin: 07/31/17 10:17 Dose: 81 mg Clopidogrel Bisulfate (Plavix) 75 mg PO DAILY [facility] Last Admin: 07/31/17 10:17 Dose: 75 mg Famotidine (Pepcid) 20 mg IVP DAILY [facility] Last Admin: 07/31/17 10:17 Dose: 20 mg Finasteride (Proscar) 5 mg PO DAILY [facility] Last Admin: 07/31/17 10:19 Dose: 5 mg Heparin Sodium (Porcine) (Heparin) 5,000 units SC Q12H [facility] Last Admin: 07/31/17 02:30 Dose: Not Given Hydralazine HCl (Apresoline) 25 mg PO BID [facility] Last Admin: 07/29/17 17:38 Dose: Not Given Ciprofloxacin (Cipro 200mg/100ml D5w) 100 mls @ 67 mls/hr IVPB Q12H [facility] Last Admin: 07/31/17 13:31 Dose: 67 mls/hr Norepinephrine Bitartrate 4 mg (/ Dextrose) 254 mls @ 4 drops/hr IV .Q24H PRN; Protocol PRN Reason: Systolic Blood Pressure Sodium Chloride (Sodium Chloride 0.9%) 1,000 mls @ 70 mls/hr IV .[id number] [facility] Last Admin: 07/31/17 19:07 Dose: 70 mls/hr Levothyroxine Sodium (Synthroid) 25 mcg PO DAILY@0630 [facility] Last Admin: 07/31/17 07:28 Dose: 25 mcg Metoprolol Tartrate (Lopressor) 25 mg PO BID [facility] Last Admin: 07/30/17 18:16 Dose: Not Given Tamsulosin HCl (Flomax) 0.4 mg PO DAILY [facility] Last Admin: 07/31/17 10:17 Dose: 0.4 mg - Labs Labs: 07/31/17 10:57 07/31/17 06:22 PT 16.0 SECONDS (9.7-12.2) H 07/30/17 12:16 INR 1.4 07/30/17 12:16 APTT 30 SECONDS (21-34) 07/30/17 08:54 - Constitutional Appears: No Acute Distress - Head Exam Head Exam: ATRAUMATIC, NORMAL INSPECTION, NORMOCEPHALIC - Eye Exam Eye Exam: EOMI, Normal appearance, PERRL Pupil Exam: NORMAL ACCOMODATION, PERRL - Respiratory Exam Respiratory Exam: Decreased Breath Sounds, Rales, Rhonchi - Cardiovascular Exam Cardiovascular Exam: REGULAR RHYTHM, +S1, +S2. absent: Murmur - GI/Abdominal Exam GI & Abdominal Exam: Soft, Normal Bowel Sounds. absent: Tenderness Assessment and Plan (1) Fever Status: Acute (2) Leukocytosis Status: Acute (3) UTI (urinary tract infection) Status: Acute (4) Leg ulcer Status: Acute
[2017-08-01] MEDS: Ciprofloxacin 200mg/100ml D5W 100 ML IVPB SCH ×2 (01:26→13:13)
--- NOTE | 2017-08-01 04:05 | CON ---
DATE: FOLLOWUP RENAL CONSULTATION LOCATION: The patient is located in room 16, ICU. REQUESTED BY: Daniel Coyle MD REASON FOR FOLLOWUP: Acute renal failure, chronic kidney disease, poor condition of the hemodialysis and initiation of the hemodialysis. SUBJECTIVE: Mr. Cunningham is an 82-year-old elderly -Malag[place] male with a past medical history significant for hypertension, coronary artery disease, status post CABG, CHF, hyperlipidemia, chronic kidney disease, and tophaceous gouty arthritis, was admitted from the custodial with altered mental status and shortness of breath. Subsequently, the patient was found to have UTI and being treated for urosepsis and his hospital course was complicated by worsening renal function and code sepsis, requiring transfer to the ICU. The patient was also found to have worsening renal function and hyperkalemia. The patient's family agreed for hemodialysis and status post dialysis catheter placement this morning and patient underwent hemodialysis this morning without any complications. The patient is on Levophed 3 mcg, responding well for the Levophed. PHYSICAL EXAMINATION: VITAL SIGNS: As follows; blood pressure 100/56, pulse 69, respiration 22, temperature 97.5, saturation 99%, height 6 feet 3 inches and weight is 175 pounds. GENERAL: Mr. Cunningham is an 82-year-old elderly -Malagasy male, moderately built, moderately nourished, not in acute distress. HEENT: Pupils are normal reactive to light and accommodation. Conjunctivae are pink. Sclerae anicteric. Tongue is moist. Trachea is midline. LUNGS: Symmetric on both sides. Bilateral breath sounds present. Bilateral basal crackles present. CARDIOVASCULAR SYSTEM: [place] at the fifth intercostal space, midclavicular line. S1 and S2 audible. No murmur or gallop. ABDOMEN: Normal in appearance, soft, tympanic. No guarding. No rigidity. No hepatosplenomegaly. CENTRAL NERVOUS SYSTEM: The patient is alert, awake, and oriented x2. Sensory and motor systems are grossly within normal limits. EXTREMITIES: No cyanosis. No clubbing. No edema. CURRENT MEDICATIONS: Include as follows; hydralazine 25 mg p.o. b.i.d., Cipro 200 mg q.12 hours, aspirin 81 mg daily, Flomax 0.4 mg p.o. daily, subcu heparin on hold, metoprolol on hold, Levophed 3 mcg, Pepcid 20 mg IV daily, Plavix 75 mg daily, Proscar 5 mg p.o. daily, IV fluids normal saline 70 mL per hour, Synthroid 25 mcg daily, and Tylenol. LABORATORY DATA: Include as follows; as of 07/31/2017, WBC 16.7, hemoglobin 6.9, hematocrit is 21.8, and platelets 242 and repeat CBC; WBC 16.4, hemoglobin 7, hematocrit 21.6, and platelets 252. ABG this morning, pH of 7.55, pCO2 22, pO2 79, bicarb is 24, and saturation 96.2. His chem-7; sodium 140, potassium 5.4, chloride 101, CO2 24, BUN 122, creatinine 5.7, glucose 66, calcium 7.3, phosphorus 8.8, magnesium 2.3, total bili 1.6, AST 488, ALT 328, alkaline phosphatase 167, total protein 6.5, and albumin is 2.6. As of 07/30/2017, MRSA screening was undetected and blood culture x2 negative day 1. As of 07/24/2017, urine culture positive for Klebsiella pneumoniae and Enterococcus faecalis. Hepatitis B surface antigen is negative. Surface antibody is negative. B core antibody is negative. IgM and hepatitis C antibodies are negative. ASSESSMENT AND PLAN: In summary, Mr. Cunningham is an 82-year-old elderly -Malagasy male with hypertension, tophaceous gout, chronic kidney disease, coronary artery disease, status post coronary artery bypass graft, and congestive heart failure, was admitted with shortness of breath, increasing BUN and creatinine, being treated for urosepsis and code sepsis. 1. Acute renal failure on chronic kidney disease, stage IV. The patient's family agreed for the dialysis. The patient underwent hemodialysis this morning without any complications. Now, we will schedule for hemodialysis again tomorrow and repeat BMP in a.m. We will do gentle dialysis. 2. Sepsis. 3. Hypertension secondary to sepsis. 4. Anemia secondary to renal failure, rule out slow GI loss. Check stool for occult blood. Add Epogen 10,000 units 3 times a week. We will repeat BMP and CBC in the a.m. We will follow with you. Thank you for allowing me to participate in your patient's care. Overall prognosis is guarded. Hernan Peterson MD
[2017-08-01 05:33] LABS: ABG ALLEN TEST POS; DRAW SITE LR
[2017-08-01] MEDS: Levothyroxine 25 MCG TAB PO SCH (06:20)
[2017-08-01 06:39] LABS: BASO % 0.2 % (0.0-2.0); EOS # 0.1 K/uL (0.0-0.7); EOS % 0.4 % (0.0-4.0); HEMATOCRIT 25.6 % (35.0-51.0); LYMPH # 1.3 K/uL (1.0-4.3); LYMPH % 11.2 % (20.0-40.0); MEAN CELL VOLUME 85.4 fL (80.0-94.0); MEAN CORPUSCULAR HEMOGLOBIN 27.9 pg (27.0-31.0); MEAN CORPUSCULAR HGB CONC 32.7 g/dL (33.0-37.0); MEAN PLATELET VOLUME 9.5 fL (7.2-11.7); MONO # 0.5 K/uL (0.0-0.8); NRBC % 2.1 % (0.0-2.0); RED CELL DISTRIBUTION WIDTH 16.4 % (11.5-14.5)
[2017-08-01 06:41] LABS: POTASSIUM 4.2 mmol/L (3.6-5.2)
[2017-08-01 06:43] LABS: ALB/GLOB RATIO 0.7 (1.0-2.1); BILIRUBIN,TOTAL 1.4 mg/dL (0.2-1.3); PHOSPHOROUS 7.2 mg/dL (2.5-4.5); TOTAL PROTEIN 6.5 g/dL (6.3-8.3)
[2017-08-01 06:44] LABS: CALCIUM 6.6 mg/dl (8.6-10.4); MAGNESIUM 2.2 mg/dL (1.6-2.3)
[2017-08-01] MEDS: Sodium Chloride 0.9% 1,000 ML IV SCH ×2 (09:17→23:50)
[2017-08-01] MEDS ORDERED: ceFAZolin IV 1 gm in Dextrose 0 GM/0 ML BAG IVPB ONE (12:59)
[2017-08-01] MEDS ORDERED: HEPARIN-NS 5,000 UNITS/500 ML 5,000 UNIT/500 ML BAG IV ONE (12:59)
--- NOTE | 2017-08-01 13:22 | CP.CCUPN ---
<BettyeLeora Addie - Last Filed: 08/01/17 18:29> CCU Subjective - Physician Review Subjective (Free Text): Patient seen and examined at bedside. Patient is lethargic, difficult to rouse, responsive to name but cannot follow simple commands or answer questions. ROS unobtainable at this time due to clinical condition. 08/01/17 10:13 CCU Objective - Vital Signs / Intake & Output Vital Signs (Last 4 hours): Vital Signs Temp Pulse Resp BP Pulse Ox 08/01/17 12:05 83 14 95/50 L 99 08/01/17 12:00 97.3 F L 84 16 99 08/01/17 11:34 81 12 94/51 L 99 08/01/17 11:05 84 17 89/50 L 99 08/01/17 11:00 82 13 100 08/01/17 10:34 82 15 91/51 L 100 08/01/17 10:04 85 19 101/52 L 100 08/01/17 10:00 85 18 94 L 08/01/17 09:34 85 21 100/57 L 96 Intake and Output (Last 8hrs): Intake & Output 07/31/17 08/01/17 08/01/17 22:59 06:59 14:59 Intake Total 947.0 682.0 438.6 Output Total 65 90 70 Balance 882.0 592.0 368.6 Weight 180 lb Intake: Intake, IV Amount 666.0 682.0 438.6 Left Femoral 106.0 92.0 18.6 Right Forearm 560 590 420 Oral 0 Blood Product 281 Apheresis Rbc Cp2d As3 Lr 281 2nd Unit [id number] Output: Urine 65 90 70 Urethral (Wise) 65 90 70 Other: # Bowel Movements 3 1 - Physical Exam Head: Positive for: Atraumatic, Normocephalic Extroacular Muscles: Positive for: EOMI Mouth: Positive for: Moist Mucous Membranes Respiratory/Chest: Positive for: Good Air Exchange, Rhonchi. Negative for: Accessory Muscle Use Abdomen: Negative for: Tenderness, Distention Lower Extremity: Positive for: Edema, Other (dressings clean/ dry/ intact) Skin: Positive for: Warm, Normal Color, Other (b/l heel wounds ) Psychiatric: Positive for: Alert - Medications Active Medications: Active Medications Generic Name Dose Route Start Last Admin Trade Name Freq PRN Reason Stop Dose Admin Acetaminophen 650 mg 07/24/17 16:35 Tylenol 325mg Tab PO Q6 PRN Fever >100.4 F Aspirin 81 mg 07/25/17 10:00 08/01/17 10:00 Ecotrin PO Not Given DAILY [facility] Clopidogrel Bisulfate 75 mg 07/25/17 10:00 08/01/17 10:00 Plavix PO Not Given DAILY [facility] Ezetimibe 10 mg 08/01/17 22:00 Zetia PO HS [facility] Famotidine 20 mg 07/31/17 10:00 08/01/17 09:12 Pepcid IVP 20 mg DAILY DAWIT Administration Finasteride 5 mg 07/25/17 10:00 08/01/17 10:00 Proscar PO Not Given DAILY [facility] Heparin Sodium (Porcine) 5,000 units 07/30/17 14:30 07/31/17 02:30 Heparin SC Not Given Q12H [facility] Hydralazine HCl 25 mg 07/24/17 18:00 07/29/17 17:38 Apresoline PO Not Given BID [facility] Ciprofloxacin 100 mls @ 67 mls/hr 07/29/17 13:30 08/01/17 01:26 Cipro 200mg/100ml D5w IVPB 67 mls/hr Q12H DAWIT Administration Norepinephrine Bitartrate 4 mg 254 mls @ 4 drops/hr 07/31/17 18:55 / Dextrose IV .Q24H PRN Systolic Blood Pressure Protocol Sodium Chloride 1,000 mls @ 70 mls/hr 07/31/17 19:00 08/01/17 09:17 Sodium Chloride 0.9% IV 70 mls/hr .[id number] DAWIT Administration Levothyroxine Sodium 25 mcg 07/25/17 06:30 08/01/17 06:20 Synthroid PO Not Given DAILY@0630 [facility] Metoprolol Tartrate 25 mg 07/26/17 10:30 07/30/17 18:16 Lopressor PO Not Given BID [facility] Midodrine 5 mg 08/01/17 14:00 Proamatine PO TID [facility] Tamsulosin HCl 0.4 mg 07/25/17 10:00 08/01/17 10:00 Flomax PO Not Given DAILY DAWIT - Patient Studies Lab Studies: Microbiology Studies 07/26/17 11:45 Blood Culture - Final Blood NO GROWTH AFTER 5 DAYS Gram Stain - Final TEST NOT PERFORMED 07/26/17 11:00 Blood Culture - Final Blood NO GROWTH AFTER 5 DAYS Gram Stain - Final TEST NOT PERFORMED 07/30/17 09:54 Blood Culture - Preliminary Blood-Venous NO GROWTH AFTER 24 HOURS 07/30/17 09:54 Blood Culture - Preliminary Blood-Venous NO GROWTH AFTER 24 HOURS 07/29/17 16:51 Urine Culture - Final Urine,Wise No Growth (<1,000 CFU/ML) 07/30/17 08:48 MRSA Culture (Admit) - Final Naris MRSA NOT DETECTED Lab Studies 08/01/17 08/01/17 08/01/17 Range/Units 06:26 06:26 05:11 WBC 12.0 H (4.8-10.8) K/uL RBC 2.99 L (4.40-5.90) Mil/uL Hgb 8.4 L (12.0-18.0) g/dL Hct 25.6 L (35.0-51.0) % MCV 85.4 (80.0-94.0) fL MCH 27.9 (27.0-31.0) pg MCHC 32.7 L (33.0-37.0) g/dL RDW 16.4 H (11.5-14.5) % Plt Count 220 (130-400) K/uL MPV 9.5 (7.2-11.7) fL Neut % (Auto) 84.2 H (50.0-75.0) % Lymph % (Auto) 11.2 L (20.0-40.0) % [place] % (Auto) 4.0 (0.0-10.0) % Eos % (Auto) 0.4 (0.0-4.0) % Baso % (Auto) 0.2 (0.0-2.0) % Neut # 10.1 H (1.8-7.0) K/uL Lymph # 1.3 (1.0-4.3) K/uL [place] # 0.5 (0.0-0.8) K/uL Eos # 0.1 (0.0-0.7) K/uL Baso # 0.0 (0.0-0.2) K/uL Puncture Site Lr pCO2 24 L (35-45) mm/Hg pO2 69 L (80-100) mm/Hg HCO3 24.6 (21-28) mmol/L ABG pH 7.54 H (7.35-7.45) ABG Total CO2 21.2 L (22-28) mmol/L ABG O2 Saturation 95.1 (95-98) % ABG Base Excess -0.4 (-2.0-3.0) mmol/L Elder Test Pos ABG Potassium 4.1 (3.6-5.2) mmol/L Sodium 135 140.0 (132-148) mmol/l Chloride 100 108.0 H (98-107) mmol/L Glucose 84 (75-110) mg/dl Lactate 1.4 (0.7-2.1) mmol/L Liter Flow 4.0 Potassium 4.2 (3.6-5.2) mmol/L Carbon Dioxide 21 L (22-30) mmol/L Anion Gap 18 (10-20) BUN 110 H* (9-20) mg/dL Creatinine 4.8 H (0.8-1.5) mg/dL Est GFR ( Amer) 14 Est GFR (Non-Af Amer) 12 POC Glucose (mg/dL) (65-110) mg/dL Random Glucose 79 (75-110) mg/dL Calcium 6.6 L (8.6-10.4) mg/dl Phosphorus 7.2 H (2.5-4.5) mg/dL Magnesium 2.2 (1.6-2.3) mg/dL Total Bilirubin 1.4 H (0.2-1.3) mg/dL AST 703 H D (17-59) U/L ALT 481 H D (21-72) U/L Alkaline Phosphatase 191 H (38-126) U/L Total Protein 6.5 (6.3-8.3) g/dL Albumin 2.7 L (3.5-5.0) g/dL Globulin 3.8 (2.2-3.9) gm/dL Albumin/Globulin Ratio 0.7 L (1.0-2.1) Arterial Blood Potassium 4.1 (3.6-5.2) mmol/L Blood Type Antibody Screen 07/31/17 07/31/17 Range/Units 17:55 12:18 WBC (4.8-10.8) K/uL RBC (4.40-5.90) Mil/uL Hgb (12.0-18.0) g/dL Hct (35.0-51.0) % MCV (80.0-94.0) fL MCH (27.0-31.0) pg MCHC (33.0-37.0) g/dL RDW (11.5-14.5) % Plt Count (130-400) K/uL MPV (7.2-11.7) fL Neut % (Auto) (50.0-75.0) % Lymph % (Auto) (20.0-40.0) % [place] % (Auto) (0.0-10.0) % Eos % (Auto) (0.0-4.0) % Baso % (Auto) (0.0-2.0) % Neut # (1.8-7.0) K/uL Lymph # (1.0-4.3) K/uL [place] # (0.0-0.8) K/uL Eos # (0.0-0.7) K/uL Baso # (0.0-0.2) K/uL Puncture Site pCO2 (35-45) mm/Hg pO2 (80-100) mm/Hg HCO3 (21-28) mmol/L ABG pH (7.35-7.45) ABG Total CO2 (22-28) mmol/L ABG O2 Saturation (95-98) % ABG Base Excess (-2.0-3.0) mmol/L Elder Test ABG Potassium (3.6-5.2) mmol/L Sodium (132-148) mmol/l Chloride (98-107) mmol/L Glucose (75-110) mg/dl Lactate (0.7-2.1) mmol/L Liter Flow Potassium (3.6-5.2) mmol/L Carbon Dioxide (22-30) mmol/L Anion Gap (10-20) BUN (9-20) mg/dL Creatinine (0.8-1.5) mg/dL Est GFR ( Amer) Est GFR (Non-Af Amer) POC Glucose (mg/dL) 115 H (65-110) mg/dL Random Glucose (75-110) mg/dL Calcium (8.6-10.4) mg/dl Phosphorus (2.5-4.5) mg/dL Magnesium (1.6-2.3) mg/dL Total Bilirubin (0.2-1.3) mg/dL AST (17-59) U/L ALT (21-72) U/L Alkaline Phosphatase (38-126) U/L Total Protein (6.3-8.3) g/dL Albumin (3.5-5.0) g/dL Globulin (2.2-3.9) gm/dL Albumin/Globulin Ratio (1.0-2.1) Arterial Blood Potassium (3.6-5.2) mmol/L Blood Type O POSITIVE Antibody Screen Negative Laboratory Results - last 24 hr 07/31/17 07/31/17 08/01/17 12:18 17:55 05:11 WBC RBC Hgb Hct MCV MCH MCHC RDW Plt Count MPV Neut % (Auto) Lymph % (Auto) [place] % (Auto) Eos % (Auto) Baso % (Auto) Neut # Lymph # [place] # Eos # Baso # Puncture Site Lr pCO2 24 L pO2 69 L HCO3 24.6 ABG pH 7.54 H ABG Total CO2 21.2 L ABG O2 Saturation 95.1 ABG Base Excess -0.4 Elder Test Pos ABG Potassium 4.1 Sodium 140.0 Chloride 108.0 H Glucose 84 Lactate 1.4 Liter Flow 4.0 Potassium Carbon Dioxide Anion Gap BUN Creatinine Est GFR ( Amer) Est GFR (Non-Af Amer) POC Glucose (mg/dL) 115 H Random Glucose Calcium Phosphorus Magnesium Total Bilirubin AST ALT Alkaline Phosphatase Total Protein Albumin Globulin Albumin/Globulin Ratio Arterial Blood Potassium 4.1 Blood Type O POSITIVE Antibody Screen Negative 08/01/17 08/01/17 06:26 06:26 WBC 12.0 H RBC 2.99 L Hgb 8.4 L Hct 25.6 L MCV 85.4 MCH 27.9 MCHC 32.7 L RDW 16.4 H Plt Count 220 MPV 9.5 Neut % (Auto) 84.2 H Lymph % (Auto) 11.2 L [place] % (Auto) 4.0 Eos % (Auto) 0.4 Baso % (Auto) 0.2 Neut # 10.1 H Lymph # 1.3 [place] # 0.5 Eos # 0.1 Baso # 0.0 Puncture Site pCO2 pO2 HCO3 ABG pH ABG Total CO2 ABG O2 Saturation ABG Base Excess Elder Test ABG Potassium Sodium 135 Chloride 100 Glucose Lactate Liter Flow Potassium 4.2 Carbon Dioxide 21 L Anion Gap 18 BUN 110 H* Creatinine 4.8 H Est GFR ( Amer) 14 Est GFR (Non-Af Amer) 12 POC Glucose (mg/dL) Random Glucose 79 Calcium 6.6 L Phosphorus 7.2 H Magnesium 2.2 Total Bilirubin 1.4 H AST 703 H D ALT 481 H D Alkaline Phosphatase 191 H Total Protein 6.5 Albumin 2.7 L Globulin 3.8 Albumin/Globulin Ratio 0.7 L Arterial Blood Potassium Blood Type Antibody Screen Fingerstick Blood Sugar Results: 92 Review of Systems - Review of Systems Systems not reviewed;Unavailable: Altered Mental Status Critical Care Progress Note - Nutrition Nutrition: Nutrition Category Date Time Status Pureed [Dysphagia/Modified Consistency Diet] [DIET] Diets 07/26/17 Dinner Active Assessment/Plan - Assessment and Plan (Free Text) Assessment: 82 y/o M with PMHx of CAD, HTN, CKD, dementia and obstructive uropathy requiring wise admitted 07/24 with lethargy and fever from the [place] [facility]. Patient was transferred to the ICU 07/30. Neuro: lethargic, dementia - tylenol 650 mg PO Q6 PRN pain Cardio: hypotensive secondary to sepsis, hx of CHF, CAD - EKG (07/26): 1st degree AV block, right axis deviation, possible anterolateral subendocardial injury - Echo (08/01/16): LVEF 65-70%, left atrial dilation, LVH - Dr. Lynn Thrasher consulted, help appreciated - aspirin 81 mg PO QD - plavix 75 mg PO QD - holding hydralazine - hold lopressor - levophed 4mg 4 drops/hr - midodrine 5 mg PO TID Pulm: possible pneumonia - Saturating 100% on 5L NC - CXR (07/30): opacification of the mid to lower lung zones bilaterally with small bilateral pleural effusions - Respiratory alkalosis: 7.47/ pCO2 19/HCO3 - Arterial lactate (08/01): 1.4 Nephro: acute on chronic kidney disease, obstructive uropathy - BUN/Cr (08/01): 110/Cr 4.8 - Dr. Peterson consulted, help appreciated - Dr. Parada consulted, help appreciated - Triple lumen temporary dialysis catheter placed in L groin by vascular surgery (07/30) - Permacath inserted by surgery (08/01) GI: transaminitis, dysphagia - Dr. Romero consulted, help appreciated - pureed diet - change PO meds to IV - LFTs (08/01): Tbili 1.4 / AST 703 / ALT 481 / ALP 191 - continue to hold crestor - HBsAg, HBsAb, HBcAb, HCV Ab all negative (07/31) - Abdominal U/S : BPH, urosepsis - Dr. Sparks consulted, help appreciated - cystoscopy by Dr. Sparks cancelled - flomax 0.4 mg PO daily - finasteride 5 mg PO daily Endo: hypothyroidism - levothyroxine 25mcg PO daily Hematology: anemia, leukocytosis likely secondary to sepsis - Hgb (08/01): 8.4, improved from yesterday - Dr. Peterson recommends Epogen 10,000u 3x weekly - WBC (08/01): 12, improving ID: urosepsis, possible pneumonia - urine cx (07/24): final culture grew klebsiella pneumoniae and enterococcus faecalis, both sensitive to ciprofloxacin - Dr. Cantu consulted, help appreciated - Code sepsis called in ICU (07/30) - ciprofloxacin 200mg @100 IVPB - blood cultures/ (07/30): preliminary results show no growth - urine culures (07/29): final results show no growth - sputum culture (07/30): results pending Derm: bilateral heel wounds - Wound care consulted PPX: - DVT: SCDs - hold heparin - GI: pepcid 20mg IVP daily <James March - Last Filed: 08/02/17 10:31> CCU Objective - Vital Signs / Intake & Output Vital Signs (Last 4 hours): Vital Signs Temp Pulse Resp BP Pulse Ox 08/02/17 08:27 90 15 101/51 L 100 08/02/17 08:00 98.1 F 08/02/17 07:27 94 H 17 94/55 L 97 08/02/17 07:00 91 H 15 98 Intake and Output (Last 8hrs): Intake & Output 11/06/0908/02/17 08/02/17 22:59 06:59 14:59 Intake Total 560 660 140 Output Total 180 85 25 Balance 380 575 115 Weight 176 lb Intake: Intake, IV Amount 560 660 140 Right Forearm 560 660 140 Output: Urine 180 85 25 Urethral (Wise) 180 85 25 - Medications Active Medications: Active Medications Generic Name Dose Route Start Last Admin Trade Name Freq PRN Reason Stop Dose Admin Acetaminophen 650 mg 07/24/17 16:35 Tylenol 325mg Tab PO Q6 PRN Fever >100.4 F Ascorbic Acid 500 mg 08/02/17 10:15 Vitamin C 500 Mg Tab PO DAILY [facility] Aspirin 81 mg 07/25/17 10:00 08/01/17 10:00 Ecotrin PO Not Given DAILY [facility] Clopidogrel Bisulfate 75 mg 07/25/17 10:00 08/01/17 10:00 Plavix PO Not Given DAILY [facility] Ezetimibe 10 mg 08/01/17 22:00 08/01/17 23:53 Zetia PO 10 mg HS DAWIT Administration Famotidine 20 mg 08/02/17 10:00 Pepcid PO DAILY [facility] Finasteride 5 mg 07/25/17 10:00 08/01/17 10:00 Proscar PO Not Given DAILY [facility] Heparin Sodium (Porcine) 5,000 units 07/30/17 14:30 07/31/17 02:30 Heparin SC Not Given Q12H [facility] Hydralazine HCl 25 mg 07/24/17 18:00 07/29/17 17:38 Apresoline PO Not Given BID [facility] Ciprofloxacin 100 mls @ 67 mls/hr 07/29/17 13:30 08/02/17 01:24 Cipro 200mg/100ml D5w IVPB 67 mls/hr Q12H DAWIT Administration Sodium Chloride 1,000 mls @ 70 mls/hr 07/31/17 19:00 08/01/17 23:50 Sodium Chloride 0.9% IV 70 mls/hr .[id number] DAWIT Administration Levothyroxine Sodium 25 mcg 07/25/17 06:30 08/02/17 06:26 Synthroid PO 25 mcg DAILY@0630 DAWIT Administration Metoprolol Tartrate 25 mg 07/26/17 10:30 07/30/17 18:16 Lopressor PO Not Given BID [facility] Midodrine 5 mg 08/01/17 14:00 08/01/17 18:26 Proamatine PO Not Given TID [facility] Multivitamins 1 tab 08/02/17 10:15 Hexavitamin PO DAILY [facility] Tamsulosin HCl 0.4 mg 07/25/17 10:00 08/01/17 10:00 Flomax PO Not Given DAILY [facility] - Patient Studies Lab Studies: Microbiology Studies 07/30/17 09:54 Blood Culture - Preliminary Blood-Venous NO GROWTH AFTER 48 HOURS 07/30/17 09:54 Blood Culture - Preliminary Blood-Venous NO GROWTH AFTER 48 HOURS Lab Studies 08/02/17 08/02/17 08/02/17 Range/Units 07:33 06:17 06:17 WBC 10.9 H (4.8-10.8) K/uL RBC 2.76 L (4.40-5.90) Mil/uL Hgb 7.7 L (12.0-18.0) g/dL Hct 24.0 L (35.0-51.0) % MCV 86.8 (80.0-94.0) fL MCH 27.9 (27.0-31.0) pg MCHC 32.1 L (33.0-37.0) g/dL RDW 16.8 H (11.5-14.5) % Plt Count 181 (130-400) K/uL MPV 8.9 (7.2-11.7) fL Neut % (Auto) 84.3 H (50.0-75.0) % Lymph % (Auto) 10.6 L (20.0-40.0) % [place] % (Auto) 4.1 (0.0-10.0) % Eos % (Auto) 0.7 (0.0-4.0) % Baso % (Auto) 0.3 (0.0-2.0) % Neut # 9.2 H (1.8-7.0) K/uL Lymph # 1.2 (1.0-4.3) K/uL [place] # 0.5 (0.0-0.8) K/uL Eos # 0.1 (0.0-0.7) K/uL Baso # 0.0 (0.0-0.2) K/uL Sodium 138 (132-148) mmol/L Potassium 3.7 (3.6-5.2) mmol/L Chloride 99 (98-107) mmol/L Carbon Dioxide 22 (22-30) mmol/L Anion Gap 20 (10-20) BUN 61 H (9-20) mg/dL Creatinine 3.5 H (0.8-1.5) mg/dL Est GFR ( Amer) 20 Est GFR (Non-Af Amer) 17 POC Glucose (mg/dL) 77 (65-110) mg/dL Random Glucose 68 L (75-110) mg/dL Calcium 6.9 L (8.6-10.4) mg/dl Phosphorus 4.9 H (2.5-4.5) mg/dL Magnesium 2.0 (1.6-2.3) mg/dL Total Bilirubin 1.2 (0.2-1.3) mg/dL AST 742 H (17-59) U/L ALT 631 H D (21-72) U/L Alkaline Phosphatase 164 H (38-126) U/L Total Protein 6.2 L (6.3-8.3) g/dL Albumin 2.6 L (3.5-5.0) g/dL Globulin 3.6 (2.2-3.9) gm/dL Albumin/Globulin Ratio 0.7 L (1.0-2.1) Hepatitis A IgM Ab (NEGATIVE) Hep Bs Antigen (NEGATIVE) Hep B Core IgM Ab (NEGATIVE) Hepatitis C Antibody (NEGATIVE) 08/02/17 08/01/17 08/01/17 Range/Units 04:42 16:21 12:32 WBC (4.8-10.8) K/uL RBC (4.40-5.90) Mil/uL Hgb (12.0-18.0) g/dL Hct (35.0-51.0) % MCV (80.0-94.0) fL MCH (27.0-31.0) pg MCHC (33.0-37.0) g/dL RDW (11.5-14.5) % Plt Count (130-400) K/uL MPV (7.2-11.7) fL Neut % (Auto) (50.0-75.0) % Lymph % (Auto) (20.0-40.0) % [place] % (Auto) (0.0-10.0) % Eos % (Auto) (0.0-4.0) % Baso % (Auto) (0.0-2.0) % Neut # (1.8-7.0) K/uL Lymph # (1.0-4.3) K/uL [place] # (0.0-0.8) K/uL Eos # (0.0-0.7) K/uL Baso # (0.0-0.2) K/uL Sodium (132-148) mmol/L Potassium (3.6-5.2) mmol/L Chloride (98-107) mmol/L Carbon Dioxide (22-30) mmol/L Anion Gap (10-20) BUN (9-20) mg/dL Creatinine (0.8-1.5) mg/dL Est GFR ( Amer) Est GFR (Non-Af Amer) POC Glucose (mg/dL) 87 100 (65-110) mg/dL Random Glucose (75-110) mg/dL Calcium (8.6-10.4) mg/dl Phosphorus (2.5-4.5) mg/dL Magnesium (1.6-2.3) mg/dL Total Bilirubin (0.2-1.3) mg/dL AST (17-59) U/L ALT (21-72) U/L Alkaline Phosphatase (38-126) U/L Total Protein (6.3-8.3) g/dL Albumin (3.5-5.0) g/dL Globulin (2.2-3.9) gm/dL Albumin/Globulin Ratio (1.0-2.1) Hepatitis A IgM Ab Negative (NEGATIVE) Hep Bs Antigen Negative (NEGATIVE) Hep B Core IgM Ab Negative (NEGATIVE) Hepatitis C Antibody Negative (NEGATIVE) 08/01/17 Range/Units 11:48 WBC (4.8-10.8) K/uL RBC (4.40-5.90) Mil/uL Hgb (12.0-18.0) g/dL Hct (35.0-51.0) % MCV (80.0-94.0) fL MCH (27.0-31.0) pg MCHC (33.0-37.0) g/dL RDW (11.5-14.5) % Plt Count (130-400) K/uL MPV (7.2-11.7) fL Neut % (Auto) (50.0-75.0) % Lymph % (Auto) (20.0-40.0) % [place] % (Auto) (0.0-10.0) % Eos % (Auto) (0.0-4.0) % Baso % (Auto) (0.0-2.0) % Neut # (1.8-7.0) K/uL Lymph # (1.0-4.3) K/uL [place] # (0.0-0.8) K/uL Eos # (0.0-0.7) K/uL Baso # (0.0-0.2) K/uL Sodium (132-148) mmol/L Potassium (3.6-5.2) mmol/L Chloride (98-107) mmol/L Carbon Dioxide (22-30) mmol/L Anion Gap (10-20) BUN (9-20) mg/dL Creatinine (0.8-1.5) mg/dL Est GFR ( Amer) Est GFR (Non-Af Amer) POC Glucose (mg/dL) 92 (65-110) mg/dL Random Glucose (75-110) mg/dL Calcium (8.6-10.4) mg/dl Phosphorus (2.5-4.5) mg/dL Magnesium (1.6-2.3) mg/dL Total Bilirubin (0.2-1.3) mg/dL AST (17-59) U/L ALT (21-72) U/L Alkaline Phosphatase (38-126) U/L Total Protein (6.3-8.3) g/dL Albumin (3.5-5.0) g/dL Globulin (2.2-3.9) gm/dL Albumin/Globulin Ratio (1.0-2.1) Hepatitis A IgM Ab (NEGATIVE) Hep Bs Antigen (NEGATIVE) Hep B Core IgM Ab (NEGATIVE) Hepatitis C Antibody (NEGATIVE) Laboratory Results - last 24 hr 08/01/17 08/01/17 08/01/17 11:48 12:32 16:21 WBC RBC Hgb Hct MCV MCH MCHC RDW Plt Count MPV Neut % (Auto) Lymph % (Auto) [place] % (Auto) Eos % (Auto) Baso % (Auto) Neut # Lymph # [place] # Eos # Baso # Sodium Potassium Chloride Carbon Dioxide Anion Gap BUN Creatinine Est GFR ( Amer) Est GFR (Non-Af Amer) POC Glucose (mg/dL) 92 100 Random Glucose Calcium Phosphorus Magnesium Total Bilirubin AST ALT Alkaline Phosphatase Total Protein Albumin Globulin Albumin/Globulin Ratio Hepatitis A IgM Ab Negative Hep Bs Antigen Negative Hep B Core IgM Ab Negative Hepatitis C Antibody Negative 08/02/17 08/02/17 08/02/17 04:42 06:17 06:17 WBC 10.9 H RBC 2.76 L Hgb 7.7 L Hct 24.0 L MCV 86.8 MCH 27.9 MCHC 32.1 L RDW 16.8 H Plt Count 181 MPV 8.9 Neut % (Auto) 84.3 H Lymph % (Auto) 10.6 L [place] % (Auto) 4.1 Eos % (Auto) 0.7 Baso % (Auto) 0.3 Neut # 9.2 H Lymph # 1.2 [place] # 0.5 Eos # 0.1 Baso # 0.0 Sodium 138 Potassium 3.7 Chloride 99 Carbon Dioxide 22 Anion Gap 20 BUN 61 H Creatinine 3.5 H Est GFR ( Amer) 20 Est GFR (Non-Af Amer) 17 POC Glucose (mg/dL) 87 Random Glucose 68 L Calcium 6.9 L Phosphorus 4.9 H Magnesium 2.0 Total Bilirubin 1.2 AST 742 H ALT 631 H D Alkaline Phosphatase 164 H Total Protein 6.2 L Albumin 2.6 L Globulin 3.6 Albumin/Globulin Ratio 0.7 L Hepatitis A IgM Ab Hep Bs Antigen Hep B Core IgM Ab Hepatitis C Antibody 08/02/17 07:33 WBC RBC Hgb Hct MCV MCH MCHC RDW Plt Count MPV Neut % (Auto) Lymph % (Auto) [place] % (Auto) Eos % (Auto) Baso % (Auto) Neut # Lymph # [place] # Eos # Baso # Sodium Potassium Chloride Carbon Dioxide Anion Gap BUN Creatinine Est GFR ( Amer) Est GFR (Non-Af Amer) POC Glucose (mg/dL) 77 Random Glucose Calcium Phosphorus Magnesium Total Bilirubin AST ALT Alkaline Phosphatase Total Protein Albumin Globulin Albumin/Globulin Ratio Hepatitis A IgM Ab Hep Bs Antigen Hep B Core IgM Ab Hepatitis C Antibody Critical Care Progress Note - Nutrition Nutrition: Nutrition Category Date Time Status Pureed [Dysphagia/Modified Consistency Diet] [DIET] Diets 07/26/17 Dinner Active Attending/Attestation - Attestation I have personally seen and examined this patient.: Yes I have fully participated in the care of the patient.: Yes I have reviewed all pertinent clinical information: Yes Notes (Text): Today: , August 01, 2017 The Patient was seen and examined at the bedside, Medical records reviewed, and management issues were discussed and formulated with the house staff. I have reviewed all the relevant clinical, laboratory, hemodynamic, radiographic data and medications Events reviewed Pain issues, skin care, head of the bed elevation, glycemic control were addressed. Agree with above treatment plans as transcribed in note I concur with resident's assessment and plan of care as transcribed in Dr. Wen note.
[2017-08-01] MEDS ORDERED: Etomidate 20 mg/10ml Inj IV ONE (13:40)
[2017-08-01] MEDS ORDERED: Sodium Chloride 0.9% 1,000 ML IV ONE (13:40)
[2017-08-01] MEDS: Lidocaine 1% Inj (20ml) ONE ×2 (13:56→14:19)
--- NOTE | 2017-08-01 14:35 | PCM.SURG1 ---
Surgeon's Initial Post Op Note - Surgeon's Notes Surgeon: Dr. Parada Yard Switch Operator: Ayo CHAY1, Brandy COWAN Type of Anesthesia: IV Sedation Pre-Operative Diagnosis: ESRD requiring HD Operative Findings: see operative report Post-Operative Diagnosis: ESRD requiring HD Operation Performed: Right internal jugular vein permacath Specimen/Specimens Removed: N/A Estimated Blood Loss: EBL {In ML}: 10 Blood Products Given: N/A Drains Used: No Drains Post-Op Condition: Good Date of Surgery/Procedure: 08/01/17 Time of Surgery/Procedure: 02:00
--- NOTE | 2017-08-01 18:15 | RAD ---
HISTORY: s/p R IJ COMPARISON: Portable chest 07/30/2017. FINDINGS: LUNGS: Airspace disease remains at the left greater than right lung bases, unchanged. PLEURA: Minimal right pleural effusions not excluded. There is no left pleural effusion or pneumothorax identified. CARDIOVASCULAR: Cardiomegaly is stable with sternotomy wires again seen. Pulmonary vascular pattern is borderline increased. Mild CHF is in question. Right tunneled central venous dialysis catheter is identified placed by an internal jugular approach with tip terminating in the right atrium. OSSEOUS STRUCTURES: No significant abnormalities. VISUALIZED UPPER ABDOMEN: Normal. OTHER FINDINGS: None. IMPRESSION: Right tunneled central venous catheter in position without pneumothorax bilaterally. Persistent bilateral basilar infiltrates unchanged as well as cardiomegaly. Mild CHF pattern likely.
--- NOTE | 2017-08-01 18:41 | US ---
HISTORY: TRANSMINITIS COMPARISON: None. TECHNIQUE: Sonographic evaluation of the abdomen. FINDINGS: LIVER: Measures 19.7 cm. Increased echogenicity of the liver parenchyma suggesting diffuse fatty infiltration or other infiltrative process. No mass. No intrahepatic bile duct dilatation. GALLBLADDER: Moderate cysts appreciated with tumefactive sludge in the lumen. No definite cholelithiasis is appreciated. The wall appears thick thickened but there is no pericholecystic fluid collection identified grossly. Clinical correlation for possible acalculous cholecystitis. COMMON BILE DUCT: Measures 5.1 mm. No stones. No dilatation. PANCREAS: Completely obscured by overlying bowel gas. RIGHT KIDNEY: Measures 8.0 x 3.8 x 4.1cm. No obstructive uropathy is appreciated with the kidney appearing lower limits of normal size. No urolithiasis or discrete cyst or solid renal parenchymal mass. LEFT KIDNEY: Measures 9.3 x 3.5 x 3.7cm. Evaluation of the left kidney is compromised by body habitus and limited ability of the patient to cooperate. No definite obstructive uropathy is appreciated. SPLEEN: Normal in size and contour. No mass. AORTA: No aneurysmal dilatation. IVC: Unremarkable. OTHER FINDINGS: None. IMPRESSION: 1. Potential acalculous cholecystitis. Clinically correlate. 2. Hepatic steatosis suggested. 3. Pancreas completely obscured by overlying bowel gas. 4. Lower limits normal size right kidney. No obstructive uropathy bilaterally. Left kidney is limited evaluation with no definite hydronephrosis related.
--- NOTE | 2017-08-01 19:26 | CP.PCM.PN ---
Subjective - Date & Time of Evaluation Date of Evaluation: 08/01/17 Time of Evaluation: 19:25 - Subjective Subjective: pt is seen and examined, follow up consult is dictated #[id number] seen in hd, uf 500 ml Objective - Vital Signs/Intake and Output Vital Signs (last 24 hours): Temp Pulse Resp BP Pulse Ox 96.3 F L 80 11 L 95/51 L 99 08/01/17 16:00 08/01/17 18:08 08/01/17 18:08 08/01/17 18:08 08/01/17 18:08 Intake and Output: 08/01/17 08/02/17 18:59 06:59 Intake Total 888.6 Output Total 225 Balance 663.6 - Medications Medications: Current Medications Acetaminophen (Tylenol 325mg Tab) 650 mg PO Q6 PRN PRN Reason: Fever >100.4 F Aspirin (Ecotrin) 81 mg PO DAILY [facility] Last Admin: 08/01/17 10:00 Dose: Not Given Clopidogrel Bisulfate (Plavix) 75 mg PO DAILY [facility] Last Admin: 08/01/17 10:00 Dose: Not Given Ezetimibe (Zetia) 10 mg PO HS [facility] Famotidine (Pepcid) 20 mg IVP DAILY [facility] Last Admin: 08/01/17 09:12 Dose: 20 mg Finasteride (Proscar) 5 mg PO DAILY [facility] Last Admin: 08/01/17 10:00 Dose: Not Given Heparin Sodium (Porcine) (Heparin) 5,000 units SC Q12H [facility] Last Admin: 07/31/17 02:30 Dose: Not Given Hydralazine HCl (Apresoline) 25 mg PO BID [facility] Last Admin: 07/29/17 17:38 Dose: Not Given Ciprofloxacin (Cipro 200mg/100ml D5w) 100 mls @ 67 mls/hr IVPB Q12H [facility] Last Admin: 08/01/17 13:13 Dose: 67 mls/hr Norepinephrine Bitartrate 4 mg (/ Dextrose) 254 mls @ 4 drops/hr IV .Q24H PRN; Protocol PRN Reason: Systolic Blood Pressure Sodium Chloride (Sodium Chloride 0.9%) 1,000 mls @ 70 mls/hr IV .[id number] [facility] Last Admin: 08/01/17 09:17 Dose: 70 mls/hr Levothyroxine Sodium (Synthroid) 25 mcg PO DAILY@0630 [facility] Last Admin: 08/01/17 06:20 Dose: Not Given Metoprolol Tartrate (Lopressor) 25 mg PO BID [facility] Last Admin: 07/30/17 18:16 Dose: Not Given Midodrine (Proamatine) 5 mg PO TID [facility] Last Admin: 08/01/17 18:26 Dose: Not Given Tamsulosin HCl (Flomax) 0.4 mg PO DAILY [facility] Last Admin: 08/01/17 10:00 Dose: Not Given - Labs Labs: 08/01/17 06:26 08/01/17 06:26 PT 16.0 SECONDS (9.7-12.2) H 07/30/17 12:16 INR 1.4 07/30/17 12:16 APTT 30 SECONDS (21-34) 07/30/17 08:54
--- NOTE | 2017-08-01 19:34 | CP.PCM.PN ---
Subjective - Date & Time of Evaluation Date of Evaluation: 08/01/17 Time of Evaluation: 09:00 - Subjective Subjective: events noted iv rx reordered Objective - Vital Signs/Intake and Output Vital Signs (last 24 hours): Temp Pulse Resp BP Pulse Ox 96.3 F L 80 11 L 95/51 L 99 08/01/17 16:00 08/01/17 18:08 08/01/17 18:08 08/01/17 18:08 08/01/17 18:08 Intake and Output: 08/01/17 08/02/17 18:59 06:59 Intake Total 888.6 Output Total 225 Balance 663.6 - Medications Medications: Current Medications Acetaminophen (Tylenol 325mg Tab) 650 mg PO Q6 PRN PRN Reason: Fever >100.4 F Aspirin (Ecotrin) 81 mg PO DAILY [facility] Last Admin: 08/01/17 10:00 Dose: Not Given Clopidogrel Bisulfate (Plavix) 75 mg PO DAILY [facility] Last Admin: 08/01/17 10:00 Dose: Not Given Ezetimibe (Zetia) 10 mg PO [facility] Famotidine (Pepcid) 20 mg IVP DAILY [facility] Last Admin: 08/01/17 09:12 Dose: 20 mg Finasteride (Proscar) 5 mg PO DAILY [facility] Last Admin: 08/01/17 10:00 Dose: Not Given Heparin Sodium (Porcine) (Heparin) 5,000 units SC Q12H [facility] Last Admin: 07/31/17 02:30 Dose: Not Given Hydralazine HCl (Apresoline) 25 mg PO BID [facility] Last Admin: 07/29/17 17:38 Dose: Not Given Ciprofloxacin (Cipro 200mg/100ml D5w) 100 mls @ 67 mls/hr IVPB Q12H [facility] Last Admin: 08/01/17 13:13 Dose: 67 mls/hr Norepinephrine Bitartrate 4 mg (/ Dextrose) 254 mls @ 4 drops/hr IV .Q24H PRN; Protocol PRN Reason: Systolic Blood Pressure Sodium Chloride (Sodium Chloride 0.9%) 1,000 mls @ 70 mls/hr IV .[id number] [facility] Last Admin: 08/01/17 09:17 Dose: 70 mls/hr Levothyroxine Sodium (Synthroid) 25 mcg PO DAILY@0630 [facility] Last Admin: 08/01/17 06:20 Dose: Not Given Metoprolol Tartrate (Lopressor) 25 mg PO BID [facility] Last Admin: 07/30/17 18:16 Dose: Not Given Midodrine (Proamatine) 5 mg PO TID [facility] Last Admin: 08/01/17 18:26 Dose: Not Given Tamsulosin HCl (Flomax) 0.4 mg PO DAILY [facility] Last Admin: 08/01/17 10:00 Dose: Not Given - Labs Labs: 08/01/17 06:26 08/01/17 06:26 PT 16.0 SECONDS (9.7-12.2) H 07/30/17 12:16 INR 1.4 07/30/17 12:16 APTT 30 SECONDS (21-34) 07/30/17 08:54 - Constitutional Appears: Non-toxic, Cachectic, Chronically Ill - Head Exam Head Exam: NORMOCEPHALIC - Eye Exam Eye Exam: PERRL - ENT Exam ENT Exam: Mucous Membranes Dry - Neck Exam Neck Exam: absent: Lymphadenopathy - Respiratory Exam Respiratory Exam: Decreased Breath Sounds, Rhonchi - Cardiovascular Exam Cardiovascular Exam: REGULAR RHYTHM - GI/Abdominal Exam GI & Abdominal Exam: Distended Assessment and Plan (1) Fever Status: Acute (2) Leukocytosis Status: Acute (3) UTI (urinary tract infection) Status: Acute (4) Acute renal failure Status: Acute (5) Generalized weakness Status: Acute (6) Hyperkalemia Status: Acute (7) Troponin level elevated Status: Acute (8) UTI (urinary tract infection) due to Enterococcus Status: Acute (9) UTI (urinary tract infection) due to Enterococcus Status: Acute (10) UTI due to Klebsiella species Status: Acute (11) UTI due to Klebsiella species Status: Acute
[2017-08-01] MEDS ORDERED: Albumin Human 25% (12.5 gm/50 ml) IV ONE (19:39)
--- NOTE | 2017-08-01 23:24 | CP.PCM.PN ---
Subjective - Date & Time of Evaluation Date of Evaluation: 08/01/17 Time of Evaluation: 20:00 - Subjective Subjective: Pt seen and examined is improving, his BUN/Creatinine went down, continue on current medical managment Objective - Vital Signs/Intake and Output Vital Signs (last 24 hours): Temp Pulse Resp BP Pulse Ox 97.3 F L 99 H 14 96/55 L 100 08/01/17 20:00 08/01/17 22:15 08/01/17 22:15 08/01/17 22:15 08/01/17 22:15 Intake and Output: 08/01/17 08/02/17 18:59 06:59 Intake Total 888.6 280 Output Total 225 60 Balance 663.6 220 - Medications Medications: Current Medications Acetaminophen (Tylenol 325mg Tab) 650 mg PO Q6 PRN PRN Reason: Fever >100.4 F Aspirin (Ecotrin) 81 mg PO DAILY [facility] Last Admin: 08/01/17 10:00 Dose: Not Given Clopidogrel Bisulfate (Plavix) 75 mg PO DAILY [facility] Last Admin: 08/01/17 10:00 Dose: Not Given Ezetimibe (Zetia) 10 mg PO HS [facility] Famotidine (Pepcid) 20 mg IVP DAILY [facility] Last Admin: 08/01/17 09:12 Dose: 20 mg Finasteride (Proscar) 5 mg PO DAILY [facility] Last Admin: 08/01/17 10:00 Dose: Not Given Heparin Sodium (Porcine) (Heparin) 5,000 units SC Q12H [facility] Last Admin: 07/31/17 02:30 Dose: Not Given Hydralazine HCl (Apresoline) 25 mg PO BID [facility] Last Admin: 07/29/17 17:38 Dose: Not Given Ciprofloxacin (Cipro 200mg/100ml D5w) 100 mls @ 67 mls/hr IVPB Q12H [facility] Last Admin: 08/01/17 13:13 Dose: 67 mls/hr Norepinephrine Bitartrate 4 mg (/ Dextrose) 254 mls @ 4 drops/hr IV .Q24H PRN; Protocol PRN Reason: Systolic Blood Pressure Sodium Chloride (Sodium Chloride 0.9%) 1,000 mls @ 70 mls/hr IV .[id number] [facility] Last Admin: 08/01/17 09:17 Dose: 70 mls/hr Levothyroxine Sodium (Synthroid) 25 mcg PO DAILY@0630 [facility] Last Admin: 08/01/17 06:20 Dose: Not Given Metoprolol Tartrate (Lopressor) 25 mg PO BID [facility] Last Admin: 07/30/17 18:16 Dose: Not Given Midodrine (Proamatine) 5 mg PO TID [facility] Last Admin: 08/01/17 18:26 Dose: Not Given Tamsulosin HCl (Flomax) 0.4 mg PO DAILY [facility] Last Admin: 08/01/17 10:00 Dose: Not Given - Labs Labs: 08/01/17 06:26 08/01/17 06:26 PT 16.0 SECONDS (9.7-12.2) H 07/30/17 12:16 INR 1.4 07/30/17 12:16 APTT 30 SECONDS (21-34) 07/30/17 08:54 - Constitutional Appears: No Acute Distress - Head Exam Head Exam: ATRAUMATIC, NORMAL INSPECTION, NORMOCEPHALIC - Eye Exam Eye Exam: EOMI, Normal appearance, PERRL Pupil Exam: NORMAL ACCOMODATION, PERRL - Respiratory Exam Respiratory Exam: Clear to Ausculation Bilateral, NORMAL BREATHING PATTERN - Cardiovascular Exam Cardiovascular Exam: REGULAR RHYTHM, +S1, +S2. absent: Murmur - GI/Abdominal Exam GI & Abdominal Exam: Soft, Normal Bowel Sounds. absent: Tenderness Assessment and Plan (1) Fever Status: Acute (2) Leukocytosis Status: Acute (3) UTI (urinary tract infection) Status: Acute (4) Leg ulcer Status: Acute
--- NOTE | 2017-08-02 01:00 | OP ---
PROCEDURE DATE: 08/01/2017 PREOPERATIVE DIAGNOSIS: Renal failure. POSTOPERATIVE DIAGNOSIS: Renal failure. PROCEDURE CARRIED OUT: Placement of Perm-A-Cath, right jugular vein using C-arm fluoroscopy and ultrasound-guided puncture and micropuncture technique. SURGEON: Dr. Parada. LIMOUSINE AND HEARSE UPHOLSTERER: Dr. Veliz, resident.. ANESTHESIOLOGIST: Mr. Thrasher. INDICATIONS: The patient is an elderly man on dialysis who presents for a Perm-A-Cath for access, temporarily being dialyzed by means of a femoral catheter. OPERATIVE FINDINGS: Catheter was inserted uneventfully via jugular vein. DESCRIPTION OF PROCEDURE: The patient was given local anesthesia. Using ultrasound guidance and micropuncture technique, the right jugular vein was punctured. Under fluoroscopic control, the guidewire was advanced centrally. This was exchanged with a #3 FiberWire and a sheath dilator was passed over this. A tunnel was then created on the chest wall and the catheter entered from the right chest wall through the internal jugular vein to the superior vena cava. We flushed with heparinized saline with excellent return. There were no operative complication or problems. The wounds were then closed were attached to the skin with 5 nylon sutures. Operation carried out, Perm-A-Cath, right jugular vein with C-arm fluoroscopy and ultrasound-guided puncture. Ultrasound images of the neck shows the vein was 13 mm in diameter with normal compressibility and no intraluminal thrombosis. Israel Parada Jr., MD
[2017-08-02] MEDS: Ciprofloxacin 200mg/100ml D5W 100 ML IVPB SCH ×2 (01:24→13:56)
--- NOTE | 2017-08-02 04:02 | CON ---
DATE: FOLLOWUP RENAL CONSULTATION LOCATION: The patient is located in ICU bed 16. REQUESTED BY: Daniel Coyle MD REASON FOR FOLLOWUP: Acute renal failure, chronic kidney disease and urosepsis. HISTORY OF PRESENT ILLNESS: Mr. Cunningham is an 82-year-old elderly male with past medical history significant for hypertension, CHF, coronary artery disease, hyperlipidemia, tophaceous gout, chronic kidney disease, history of fall in the past, who was recently admitted to [facility] from 05/27/2017 to 06/06/2017 and subsequently was transferred to subacute rehab from there. Now, the patient was admitted a few days ago, last week with shortness of breath and altered mental status and found to have urosepsis and serum creatinine about 3.7. Initially improved to 3 with IV hydration, and subsequently, his creatinine got worse and his renal function deteriorated and also the patient had a code sepsis and transferred to ICU for further management. The patient is on Levophed, status post first dialysis yesterday for acute renal failure, and also the patient underwent PermCath placement today. The patient is being dialyzed this evening and UF goal is about 500 only. The patient is arousable, not in acute distress, following simple commands. PHYSICAL EXAMINATION: GENERAL: Mr. Cunningham is an 82-year-old elderly male, moderately build, moderately nourished, not in distress. VITAL SIGNS: As follows, blood pressure 104/55, pulse 90, respirations 15, temperature is 97.3 and saturation 99%. HEENT: Pupils are normal reactive to light and accommodation. Conjunctivae are pink. Sclerae anicteric. Tongue is moist. Trachea is midline. LUNGS: Symmetric on both sides. Bilateral breath sounds present. Occasional basal crackles. CARDIOVASCULAR: [place] at the fifth intercostal space, midclavicular line. S1 and S2 audible. No murmur or gallop. The patient has a midsternal scar present from the previous CABG. ABDOMEN: Normal in appearance, soft, tympanic. No guarding. No rigidity. No hepatosplenomegaly. CENTRAL NERVOUS SYSTEM: The patient is drowsy, arousable. Following simple commands. EXTREMITIES: No cyanosis. No clubbing. No edema. LABORATORY DATA: Include as follows, WBC 12.0, hemoglobin 8.4, hematocrit is 25.6, platelets 220. ABG; pH 7.54, PCO2 of 24, PO2 of 69, bicarbonate is 24.6 and saturation 95.1. Sodium 135, potassium 4.2, chloride 100, CO2 of 21, BUN 110, creatinine is 4.8, glucose is 79, calcium 6.6, phosphorus 7.2, and magnesium 2.2. Total bilirubin 1.4, AST 703, ALT 481, alkaline phosphatase 191, total protein 6.5. Hepatitis C antibody is negative, hepatitis B surface antigen is negative, and hepatitis B core antibody is negative. As of 07/30/2017, blood cultures x2 negative, day 2. As of 07/24/2017, urine culture positive for Klebsiella pneumonia and Enterococcus faecalis. Chest x-ray as of 08/01/2017, airspace disease remains at the left greater than right lung base, unchanged; minimal right pleural effusion, not excluded. There is no left pleural effusion or pneumothorax identified. Cardiomegaly stable with sternotomy wires again seen. Mild CHF is in question. Right tunneled central venous dialysis catheter is identified, placed by the internal jugular approach with tip terminating in the right atrium. CURRENT MEDICATIONS: As follows, Cipro 200 mg IV q. 12 hours, aspirin 81 mg daily, Flomax 0.4 mg daily, norepinephrine 4 mg 250 mL at 4 drops per hour, Pepcid 20 mg IV daily, Plavix 75 mg daily, midodrine 5 mg p.o. t.i.d., Proscar 5 mg p.o. daily, IV fluid normal saline at 70 mL per hour, levothyroxine 25 mcg daily, and Zetia 10 mg p.o. at bedtime. ASSESSMENT: Mr. Cunningham is an 82-year-old elderly male with history of longstanding hypertension, coronary artery disease, status post coronary artery bypass grafting, congestive heart failure, chronic kidney disease, was admitted with altered mental status and shortness of breath. The patient is being treated for urosepsis and bilateral pneumonia with increased BUN and creatinine, anemia, status post first dialysis yesterday and also underwent PermaCath today. The patient is being dialyzed this evening with ultrafiltration goal of 500. 1. Renal failure, acute on chronic kidney disease versus end-stage renal disease. 2. Urosepsis. 3. Anemia. 4. Pneumonia. Continue IV antibiotic, Cipro as per Infectious Disease recommendation, Dr. Cantu. Continue to monitor BMP. Overall prognosis is guarded. Continue IV fluids. We will follow with you. Thank you for allowing me to participate in your patient's care and continue Levophed as per ICU. Hernan Peterson MD
[2017-08-02] MEDS: Levothyroxine 25 MCG TAB PO SCH (06:26)
[2017-08-02 06:29] LABS: BASO % 0.3 % (0.0-2.0); EOS # 0.1 K/uL (0.0-0.7); EOS % 0.7 % (0.0-4.0); LYMPH # 1.2 K/uL (1.0-4.3); LYMPH % 10.6 % (20.0-40.0); MEAN CELL VOLUME 86.8 fL (80.0-94.0); MEAN CORPUSCULAR HEMOGLOBIN 27.9 pg (27.0-31.0); MEAN CORPUSCULAR HGB CONC 32.1 g/dL (33.0-37.0); MEAN PLATELET VOLUME 8.9 fL (7.2-11.7); MONO # 0.5 K/uL (0.0-0.8); MONO % 4.1 % (0.0-10.0); NRBC % 0.9 % (0.0-2.0); RED CELL DISTRIBUTION WIDTH 16.8 % (11.5-14.5); WHITE BLOOD COUNT 10.9 K/uL (4.8-10.8)
[2017-08-02 06:40] LABS: ALB/GLOB RATIO 0.7 (1.0-2.1); BILIRUBIN,TOTAL 1.2 mg/dL (0.2-1.3); CALCIUM 6.9 mg/dl (8.6-10.4); PHOSPHOROUS 4.9 mg/dL (2.5-4.5); POTASSIUM 3.7 mmol/L (3.6-5.2); TOTAL PROTEIN 6.2 g/dL (6.3-8.3)
--- NOTE | 2017-08-02 10:58 | CP.PCM.PN ---
Subjective - Date & Time of Evaluation Date of Evaluation: 08/02/17 Time of Evaluation: 10:57 - Subjective Subjective: pt is seen and examined, follow up consult is dictated #[id number] Objective - Vital Signs/Intake and Output Vital Signs (last 24 hours): Temp Pulse Resp BP Pulse Ox 98.1 F 90 15 101/51 L 100 08/02/17 08:00 08/02/17 08:27 08/02/17 08:27 08/02/17 08:27 08/02/17 08:27 Intake and Output: 08/02/17 08/02/17 06:59 18:59 Intake Total 940 140 Output Total 145 25 Balance 795 115 - Medications Medications: Current Medications Acetaminophen (Tylenol 325mg Tab) 650 mg PO Q6 PRN PRN Reason: Fever >100.4 F Ascorbic Acid (Vitamin C 500 Mg Tab) 500 mg PO DAILY [facility] Aspirin (Ecotrin) 81 mg PO DAILY [facility] Last Admin: 08/01/17 10:00 Dose: Not Given Clopidogrel Bisulfate (Plavix) 75 mg PO DAILY [facility] Last Admin: 08/01/17 10:00 Dose: Not Given Ezetimibe (Zetia) 10 mg PO HS [facility] Last Admin: 08/01/17 23:53 Dose: 10 mg Famotidine (Pepcid) 20 mg PO DAILY [facility] Finasteride (Proscar) 5 mg PO DAILY [facility] Last Admin: 08/01/17 10:00 Dose: Not Given Heparin Sodium (Porcine) (Heparin) 5,000 units SC Q12H [facility] Last Admin: 07/31/17 02:30 Dose: Not Given Hydralazine HCl (Apresoline) 25 mg PO BID [facility] Last Admin: 07/29/17 17:38 Dose: Not Given Ciprofloxacin (Cipro 200mg/100ml D5w) 100 mls @ 67 mls/hr IVPB Q12H [facility] Last Admin: 08/02/17 01:24 Dose: 67 mls/hr Sodium Chloride (Sodium Chloride 0.9%) 1,000 mls @ 70 mls/hr IV .[id number] [facility] Last Admin: 08/01/17 23:50 Dose: 70 mls/hr Metronidazole (Flagyl) 500 mg in 100 mls @ 100 mls/hr IVPB Q8 [facility] Levothyroxine Sodium (Synthroid) 25 mcg PO DAILY@0630 [facility] Last Admin: 08/02/17 06:26 Dose: 25 mcg Metoprolol Tartrate (Lopressor) 25 mg PO BID [facility] Last Admin: 07/30/17 18:16 Dose: Not Given Midodrine (Proamatine) 5 mg PO TID [facility] Last Admin: 08/01/17 18:26 Dose: Not Given Multivitamins (Hexavitamin) 1 tab PO DAILY [facility] Phytonadione (Vitamin K Inj) 10 mg SC ONCE ONE Stop: 08/02/17 11:01 Tamsulosin HCl (Flomax) 0.4 mg PO DAILY [facility] Last Admin: 08/01/17 10:00 Dose: Not Given - Labs Labs: 08/02/17 06:17 08/02/17 06:17 PT 16.0 SECONDS (9.7-12.2) H 07/30/17 12:16 INR 1.4 07/30/17 12:16 APTT 30 SECONDS (21-34) 07/30/17 08:54
[2017-08-02] MEDS ORDERED: Phytonadione 10 mg/ml Inj (Adult) SC ONE (11:00)
[2017-08-02] MEDS: Multiple Vitamins Tab PO SCH (11:16)
--- NOTE | 2017-08-02 11:38 | CP.PCM.PN ---
Subjective - Date & Time of Evaluation Date of Evaluation: 08/02/17 Time of Evaluation: 07:15 - Subjective Subjective: Vascular Surgery Note for Dr. Parada Patient seen and examined at bedside. No acute event overnight. He is s/p Right internal jugular vein Permacath POD#1. Patient moaning intermittently. He is not following commands but responds to tactile stimuli. ROS unobtainable. Objective - Vital Signs/Intake and Output Vital Signs (last 24 hours): Temp Pulse Resp BP Pulse Ox 98.1 F 90 15 101/51 L 100 08/02/17 08:00 08/02/17 08:27 08/02/17 08:27 08/02/17 08:27 08/02/17 08:27 Intake and Output: 08/02/17 08/02/17 06:59 18:59 Intake Total 940 140 Output Total 145 25 Balance 795 115 - Medications Medications: Current Medications Acetaminophen (Tylenol 325mg Tab) 650 mg PO Q6 PRN PRN Reason: Fever >100.4 F Ascorbic Acid (Vitamin C 500 Mg Tab) 500 mg PO DAILY [facility] Last Admin: 08/02/17 11:16 Dose: 500 mg Aspirin (Ecotrin) 81 mg PO DAILY [facility] Last Admin: 08/02/17 11:15 Dose: 81 mg Clopidogrel Bisulfate (Plavix) 75 mg PO DAILY [facility] Last Admin: 08/02/17 11:16 Dose: 75 mg Ezetimibe (Zetia) 10 mg PO HS [facility] Last Admin: 08/01/17 23:53 Dose: 10 mg Famotidine (Pepcid) 20 mg PO DAILY [facility] Last Admin: 08/02/17 11:16 Dose: 20 mg Finasteride (Proscar) 5 mg PO DAILY [facility] Last Admin: 08/02/17 11:15 Dose: 5 mg Heparin Sodium (Porcine) (Heparin) 5,000 units SC Q12H [facility] Last Admin: 07/31/17 02:30 Dose: Not Given Hydralazine HCl (Apresoline) 25 mg PO BID [facility] Last Admin: 07/29/17 17:38 Dose: Not Given Ciprofloxacin (Cipro 200mg/100ml D5w) 100 mls @ 67 mls/hr IVPB Q12H [facility] Last Admin: 08/02/17 01:24 Dose: 67 mls/hr Sodium Chloride (Sodium Chloride 0.9%) 1,000 mls @ 70 mls/hr IV .[id number] [facility] Last Admin: 08/01/17 23:50 Dose: 70 mls/hr Metronidazole (Flagyl) 500 mg in 100 mls @ 100 mls/hr IVPB Q8 [facility] Levothyroxine Sodium (Synthroid) 25 mcg PO DAILY@0630 [facility] Last Admin: 08/02/17 06:26 Dose: 25 mcg Metoprolol Tartrate (Lopressor) 25 mg PO BID [facility] Last Admin: 07/30/17 18:16 Dose: Not Given Midodrine (Proamatine) 5 mg PO TID [facility] Last Admin: 08/02/17 11:16 Dose: 5 mg Multivitamins (Hexavitamin) 1 tab PO DAILY [facility] Last Admin: 08/02/17 11:16 Dose: 1 tab Tamsulosin HCl (Flomax) 0.4 mg PO DAILY [facility] Last Admin: 08/02/17 11:18 Dose: 0.4 mg - Labs Labs: 08/02/17 06:17 08/02/17 06:17 PT 16.0 SECONDS (9.7-12.2) H 07/30/17 12:16 INR 1.4 07/30/17 12:16 APTT 30 SECONDS (21-34) 07/30/17 08:54 - Constitutional Appears: No Acute Distress, Confused - Head Exam Head Exam: ATRAUMATIC, NORMOCEPHALIC - Eye Exam Eye Exam: EOMI, Normal appearance - ENT Exam ENT Exam: Mucous Membranes Dry - Neck Exam Additional comments: permacath on right side - Respiratory Exam Respiratory Exam: NORMAL BREATHING PATTERN - Cardiovascular Exam Cardiovascular Exam: REGULAR RHYTHM - GI/Abdominal Exam GI & Abdominal Exam: Soft, Normal Bowel Sounds. absent: Tenderness - Neurological Exam Neurological Exam: Awake - Psychiatric Exam Psychiatric exam: Flat Affect - Skin Skin Exam: Dry, Warm Assessment and Plan - Assessment and Plan (Free Text) Plan: 82 M s/p Right internal jugular vein Permacath -Catheter can be used for dialysis -Management as per ICU -Will Discuss with Dr. Karma Rollins PGY1
--- NOTE | 2017-08-02 12:07 | PN ---
DATE: LOCATION: ICU 16. SUBJECTIVE: The patient is an 82-year-old male seen and examined for GI consultation as requested by the admitting medical team on 08/01/2017, reexamined again, with staff in the incentive care unit with very poor oral intake, swallow evaluation is in process. The entire chart is reviewed including, but not limited to the most recent lab and radiology study results, current and previous medication list, current and previous medical events. LABORATORY DATA: Today's lab showed leukocytosis of 10.9, hemoglobin dropped to 7.7, hematocrit 24.0, with no evidence of active bleeding, but normal platelet count with BUN 61 and creatinine 3.5, with low calcium of 6.9 and low blood glucose level early in the morning of 68 with increased phosphorus to 4.9 and persistently elevated AST 742, ALT increased to 631, alkaline phosphatase 164, with low total protein of 6.2, low albumin 2.6, but with normal total bilirubin 1.2. Abdominal ultrasound done yesterday, report is seen indicative of potential acalculous cholecystitis and hepatic steatosis. Evidence of lower limits normal size right kidney with no evidence of obstructive uropathy. PHYSICAL EXAMINATION: GENERAL: An 82-year-old male not responding to verbal stimuli, with very poor oral intake, refused to eat. VITAL SIGNS: Afebrile with pulse of 92, respiratory rate 18 to 20, blood pressure 106/58. HEENT: Pale, dry oral mucoid membrane, nonicteric sclerae. LUNGS: Scattered crepitation and decreased air entry at bases. HEART: Positive S1 and S2 with increased rate. ABDOMEN: Soft. Bowel sounds are present. No mass or organomegaly. No rebound tenderness or guarding. RECTAL: The patient refused. EXTREMITIES: With mild lower extremity edematous changes. No clubbing or cyanosis. NEUROLOGIC: No reported new neurological deficits, sensory or motor. IMPRESSION: 1. Malnutrition with hypoalbuminemia, hypoproteinemia. 2. Failure to thrive. 3. Status post Perm-A-Cath insertion to the right internal jugular vein with C-arm. 4. Renal failure. 5. Mild congestive heart failure with cardiomegaly. 6. Bilateral pneumonia, still on antibiotics. 7. Known history of, but not limited to hypertension, osteoarthritis, as well as gouty arthritis. 8. Reported obstructive uropathy before. 9. Anemia most likely secondary to above. 10. The possibility of gastrointestinal blood loss upper versus lower with . 11. Abnormal liver function test which could be secondary to infectious process versus right side heart failure. It has to be mentioned that the patient's hepatitis profile was reported to be negative as requested by myself. SUGGESTION: 1. Agree with your plan. 2. Proper hyperalimentation. 3. Control any underlying infectious process including his pneumonia. 4. Correct an underlying congestive heart failure. 5. Due to the patient's condition, PEG insertion to be kept in mind. 6. Blood transfusion to keep the hemoglobin around 10 gram percent. 7. Correct any underlying coagulopathy. 8. May add Flagyl IV due to his leukocytosis. Further recommendation to follow. Thank you for letting me to participate in your patient's case management. Katia Pardo MD cc: Katia Pardo MD
--- NOTE | 2017-08-02 12:23 | CP.PCM.PN ---
Subjective - Date & Time of Evaluation Date of Evaluation: 08/02/17 Time of Evaluation: 12:22 - Subjective Subjective: lethargic.got dialysed yesterday Objective - Vital Signs/Intake and Output Vital Signs (last 24 hours): Temp Pulse Resp BP Pulse Ox 98.1 F 91 H 16 97/58 L 100 08/02/17 08:00 08/02/17 11:27 08/02/17 11:27 08/02/17 11:27 08/02/17 11:27 Intake and Output: 08/02/17 08/02/17 06:59 18:59 Intake Total 940 500 Output Total 145 40 Balance 795 460 - Medications Medications: Current Medications Acetaminophen (Tylenol 325mg Tab) 650 mg PO Q6 PRN PRN Reason: Fever >100.4 F Ascorbic Acid (Vitamin C 500 Mg Tab) 500 mg PO DAILY [facility] Last Admin: 08/02/17 11:16 Dose: 500 mg Aspirin (Ecotrin) 81 mg PO DAILY [facility] Last Admin: 08/02/17 11:15 Dose: 81 mg Clopidogrel Bisulfate (Plavix) 75 mg PO DAILY [facility] Last Admin: 08/02/17 11:16 Dose: 75 mg Ezetimibe (Zetia) 10 mg PO HS [facility] Last Admin: 08/01/17 23:53 Dose: 10 mg Famotidine (Pepcid) 20 mg PO DAILY [facility] Last Admin: 08/02/17 11:16 Dose: 20 mg Finasteride (Proscar) 5 mg PO DAILY [facility] Last Admin: 08/02/17 11:15 Dose: 5 mg Heparin Sodium (Porcine) (Heparin) 5,000 units SC Q12H [facility] Last Admin: 07/31/17 02:30 Dose: Not Given Hydralazine HCl (Apresoline) 25 mg PO BID [facility] Last Admin: 07/29/17 17:38 Dose: Not Given Ciprofloxacin (Cipro 200mg/100ml D5w) 100 mls @ 67 mls/hr IVPB Q12H [facility] Last Admin: 08/02/17 01:24 Dose: 67 mls/hr Sodium Chloride (Sodium Chloride 0.9%) 1,000 mls @ 70 mls/hr IV .[id number] [facility] Last Admin: 08/01/17 23:50 Dose: 70 mls/hr Metronidazole (Flagyl) 500 mg in 100 mls @ 100 mls/hr IVPB Q8 [facility] Levothyroxine Sodium (Synthroid) 25 mcg PO DAILY@0630 [facility] Last Admin: 08/02/17 06:26 Dose: 25 mcg Metoprolol Tartrate (Lopressor) 25 mg PO BID [facility] Last Admin: 07/30/17 18:16 Dose: Not Given Midodrine (Proamatine) 5 mg PO TID [facility] Last Admin: 08/02/17 11:16 Dose: 5 mg Multivitamins (Hexavitamin) 1 tab PO DAILY [facility] Last Admin: 08/02/17 11:16 Dose: 1 tab Tamsulosin HCl (Flomax) 0.4 mg PO DAILY [facility] Last Admin: 08/02/17 11:18 Dose: 0.4 mg - Labs Labs: 08/02/17 06:17 08/02/17 06:17 PT 16.0 SECONDS (9.7-12.2) H 07/30/17 12:16 INR 1.4 07/30/17 12:16 APTT 30 SECONDS (21-34) 07/30/17 08:54 - Constitutional Appears: Chronically Ill - Eye Exam Eye Exam: Normal appearance - Respiratory Exam Respiratory Exam: Clear to Ausculation Bilateral - Cardiovascular Exam Cardiovascular Exam: REGULAR RHYTHM - GI/Abdominal Exam GI & Abdominal Exam: Soft Assessment and Plan - Assessment and Plan (Free Text) Assessment: sepsis,renal failure.
--- NOTE | 2017-08-02 14:32 | CP.CCUPN ---
Addendum entered and electronically signed by Leora Wen 08/02/17 16:14 : Recommend removing femoral TLC dialysis catheter to decrease CLABSI. Dr. Peterson recommended keeping line in as patient is difficult to draw blood from. Line not removed today. Original Note: <Leora Wen - Last Filed: 08/02/17 14:37> CCU Subjective - Physician Review Subjective (Free Text): Patient seen and examined at bedside. Patient is lethargic, moaning and unable to answer questions or follow commands. ROS unobtainable at this time due to clinical condition. CCU Objective - Vital Signs / Intake & Output Vital Signs (Last 4 hours): Vital Signs Temp Pulse Resp BP Pulse Ox 08/02/17 12:27 89 12 105/60 100 08/02/17 12:00 97.6 F 08/02/17 11:27 91 H 16 97/58 L 100 08/02/17 10:27 94 H 16 92/62 L 98 Intake and Output (Last 8hrs): Intake & Output 08/01/17 08/02/17 08/02/17 22:59 06:59 14:59 Intake Total 560 660 640 Output Total 180 85 40 Balance 380 575 600 Weight 176 lb Intake: Intake, IV Amount 560 660 490 Right Forearm 560 660 490 Other 150 Output: Urine 180 85 40 Urethral (Wise) 180 85 40 - Physical Exam Head: Positive for: Atraumatic, Normocephalic Extroacular Muscles: Positive for: EOMI Mouth: Positive for: Moist Mucous Membranes Respiratory/Chest: Positive for: Good Air Exchange, Rhonchi. Negative for: Accessory Muscle Use Abdomen: Negative for: Tenderness, Distention Lower Extremity: Positive for: Edema, Other (dressings clean/ dry/ intact) Skin: Positive for: Warm, Normal Color, Other (b/l heel wounds ) Psychiatric: Positive for: Alert - Medications Active Medications: Active Medications Generic Name Dose Route Start Last Admin Trade Name Freq PRN Reason Stop Dose Admin Acetaminophen 650 mg 07/24/17 16:35 Tylenol 325mg Tab PO Q6 PRN Fever >100.4 F Ascorbic Acid 500 mg 08/02/17 10:15 08/02/17 11:16 Vitamin C 500 Mg Tab PO 500 mg DAILY DAWIT Administration Aspirin 81 mg 07/25/17 10:00 11/10/17 11:15 Ecotrin PO 81 mg DAILY DAWIT Administration Clopidogrel Bisulfate 75 mg 07/25/17 10:00 08/02/17 11:16 Plavix PO 75 mg DAILY DAWIT Administration Ezetimibe 10 mg 08/01/17 22:00 08/01/17 23:53 Zetia PO 10 mg HS DAWIT Administration Famotidine 20 mg 08/02/17 10:00 08/02/17 11:16 Pepcid PO 20 mg DAILY DAWIT Administration Finasteride 5 mg 07/25/17 10:00 08/02/17 11:15 Proscar PO 5 mg DAILY DAWIT Administration Heparin Sodium (Porcine) 5,000 units 07/30/17 14:30 07/31/17 02:30 Heparin SC Not Given Q12H DAWIT Hydralazine HCl 25 mg 07/24/17 18:00 07/29/17 17:38 Apresoline PO Not Given BID DAWIT Ciprofloxacin 100 mls @ 67 mls/hr 07/29/17 13:30 08/02/17 13:56 Cipro 200mg/100ml D5w IVPB 67 mls/hr Q12H DAWIT Administration Sodium Chloride 1,000 mls @ 70 mls/hr 07/31/17 19:00 08/01/17 23:50 Sodium Chloride 0.9% IV 70 mls/hr .[id number] DAWIT Administration Metronidazole 500 mg in 100 mls @ 100 mls/hr 08/02/17 14:00 Flagyl IVPB Q8 DAWIT Levothyroxine Sodium 25 mcg 07/25/17 06:30 08/02/17 06:26 Synthroid PO 25 mcg DAILY@0630 DAWIT Administration Metoprolol Tartrate 25 mg 07/26/17 10:30 07/30/17 18:16 Lopressor PO Not Given BID DAWIT Midodrine 5 mg 08/01/17 14:00 08/02/17 13:55 Proamatine PO 5 mg TID DAWIT Administration Multivitamins 1 tab 08/02/17 10:15 08/02/17 11:16 Hexavitamin PO 1 tab DAILY DAWIT Administration Tamsulosin HCl 0.4 mg 07/25/17 10:00 08/02/17 11:18 Flomax PO 0.4 mg DAILY DAWIT Administration - Patient Studies Lab Studies: Microbiology Studies 07/30/17 09:54 Blood Culture - Preliminary Blood-Venous NO GROWTH AFTER 3 DAYS 07/30/17 09:54 Blood Culture - Preliminary Blood-Venous NO GROWTH AFTER 3 DAYS Lab Studies 08/02/17 08/02/17 08/02/17 Range/Units 11:57 07:33 06:17 WBC (4.8-10.8) K/uL RBC (4.40-5.90) Mil/uL Hgb (12.0-18.0) g/dL Hct (35.0-51.0) % MCV (80.0-94.0) fL MCH (27.0-31.0) pg MCHC (33.0-37.0) g/dL RDW (11.5-14.5) % Plt Count (130-400) K/uL MPV (7.2-11.7) fL Neut % (Auto) (50.0-75.0) % Lymph % (Auto) (20.0-40.0) % [place] % (Auto) (0.0-10.0) % Eos % (Auto) (0.0-4.0) % Baso % (Auto) (0.0-2.0) % Neut # (1.8-7.0) K/uL Lymph # (1.0-4.3) K/uL [place] # (0.0-0.8) K/uL Eos # (0.0-0.7) K/uL Baso # (0.0-0.2) K/uL Sodium 138 (132-148) mmol/L Potassium 3.7 (3.6-5.2) mmol/L Chloride 99 (98-107) mmol/L Carbon Dioxide 22 (22-30) mmol/L Anion Gap 20 (10-20) BUN 61 H (9-20) mg/dL Creatinine 3.5 H (0.8-1.5) mg/dL Est GFR ( Amer) 20 Est GFR (Non-Af Amer) 17 POC Glucose (mg/dL) 91 77 (65-110) mg/dL Random Glucose 68 L (75-110) mg/dL Calcium 6.9 L (8.6-10.4) mg/dl Phosphorus 4.9 H (2.5-4.5) mg/dL Magnesium 2.0 (1.6-2.3) mg/dL Total Bilirubin 1.2 (0.2-1.3) mg/dL AST 742 H (17-59) U/L ALT 631 H D (21-72) U/L Alkaline Phosphatase 164 H (38-126) U/L Total Protein 6.2 L (6.3-8.3) g/dL Albumin 2.6 L (3.5-5.0) g/dL Globulin 3.6 (2.2-3.9) gm/dL Albumin/Globulin Ratio 0.7 L (1.0-2.1) 08/02/17 08/02/17 08/01/17 Range/Units 06:17 04:42 16:21 WBC 10.9 H (4.8-10.8) K/uL RBC 2.76 L (4.40-5.90) Mil/uL Hgb 7.7 L (12.0-18.0) g/dL Hct 24.0 L (35.0-51.0) % MCV 86.8 (80.0-94.0) fL MCH 27.9 (27.0-31.0) pg MCHC 32.1 L (33.0-37.0) g/dL RDW 16.8 H (11.5-14.5) % Plt Count 181 (130-400) K/uL MPV 8.9 (7.2-11.7) fL Neut % (Auto) 84.3 H (50.0-75.0) % Lymph % (Auto) 10.6 L (20.0-40.0) % [place] % (Auto) 4.1 (0.0-10.0) % Eos % (Auto) 0.7 (0.0-4.0) % Baso % (Auto) 0.3 (0.0-2.0) % Neut # 9.2 H (1.8-7.0) K/uL Lymph # 1.2 (1.0-4.3) K/uL [place] # 0.5 (0.0-0.8) K/uL Eos # 0.1 (0.0-0.7) K/uL Baso # 0.0 (0.0-0.2) K/uL Sodium (132-148) mmol/L Potassium (3.6-5.2) mmol/L Chloride (98-107) mmol/L Carbon Dioxide (22-30) mmol/L Anion Gap (10-20) BUN (9-20) mg/dL Creatinine (0.8-1.5) mg/dL Est GFR ( Amer) Est GFR (Non-Af Amer) POC Glucose (mg/dL) 87 100 (65-110) mg/dL Random Glucose (75-110) mg/dL Calcium (8.6-10.4) mg/dl Phosphorus (2.5-4.5) mg/dL Magnesium (1.6-2.3) mg/dL Total Bilirubin (0.2-1.3) mg/dL AST (17-59) U/L ALT (21-72) U/L Alkaline Phosphatase (38-126) U/L Total Protein (6.3-8.3) g/dL Albumin (3.5-5.0) g/dL Globulin (2.2-3.9) gm/dL Albumin/Globulin Ratio (1.0-2.1) 08/01/17 Range/Units 11:48 WBC (4.8-10.8) K/uL RBC (4.40-5.90) Mil/uL Hgb (12.0-18.0) g/dL Hct (35.0-51.0) % MCV (80.0-94.0) fL MCH (27.0-31.0) pg MCHC (33.0-37.0) g/dL RDW (11.5-14.5) % Plt Count (130-400) K/uL MPV (7.2-11.7) fL Neut % (Auto) (50.0-75.0) % Lymph % (Auto) (20.0-40.0) % [place] % (Auto) (0.0-10.0) % Eos % (Auto) (0.0-4.0) % Baso % (Auto) (0.0-2.0) % Neut # (1.8-7.0) K/uL Lymph # (1.0-4.3) K/uL [place] # (0.0-0.8) K/uL Eos # (0.0-0.7) K/uL Baso # (0.0-0.2) K/uL Sodium (132-148) mmol/L Potassium (3.6-5.2) mmol/L Chloride (98-107) mmol/L Carbon Dioxide (22-30) mmol/L Anion Gap (10-20) BUN (9-20) mg/dL Creatinine (0.8-1.5) mg/dL Est GFR ( Amer) Est GFR (Non-Af Amer) POC Glucose (mg/dL) 92 (65-110) mg/dL Random Glucose (75-110) mg/dL Calcium (8.6-10.4) mg/dl Phosphorus (2.5-4.5) mg/dL Magnesium (1.6-2.3) mg/dL Total Bilirubin (0.2-1.3) mg/dL AST (17-59) U/L ALT (21-72) U/L Alkaline Phosphatase (38-126) U/L Total Protein (6.3-8.3) g/dL Albumin (3.5-5.0) g/dL Globulin (2.2-3.9) gm/dL Albumin/Globulin Ratio (1.0-2.1) Laboratory Results - last 24 hr 08/01/17 08/01/17 08/02/17 11:48 16:21 04:42 WBC RBC Hgb Hct MCV MCH MCHC RDW Plt Count MPV Neut % (Auto) Lymph % (Auto) [place] % (Auto) Eos % (Auto) Baso % (Auto) Neut # Lymph # [place] # Eos # Baso # Sodium Potassium Chloride Carbon Dioxide Anion Gap BUN Creatinine Est GFR ( Amer) Est GFR (Non-Af Amer) POC Glucose (mg/dL) 92 100 87 Random Glucose Calcium Phosphorus Magnesium Total Bilirubin AST ALT Alkaline Phosphatase Total Protein Albumin Globulin Albumin/Globulin Ratio 08/02/17 08/02/17 08/02/17 06:17 06:17 07:33 WBC 10.9 H RBC 2.76 L Hgb 7.7 L Hct 24.0 L MCV 86.8 MCH 27.9 MCHC 32.1 L RDW 16.8 H Plt Count 181 MPV 8.9 Neut % (Auto) 84.3 H Lymph % (Auto) 10.6 L [place] % (Auto) 4.1 Eos % (Auto) 0.7 Baso % (Auto) 0.3 Neut # 9.2 H Lymph # 1.2 [place] # 0.5 Eos # 0.1 Baso # 0.0 Sodium 138 Potassium 3.7 Chloride 99 Carbon Dioxide 22 Anion Gap 20 BUN 61 H Creatinine 3.5 H Est GFR ( Amer) 20 Est GFR (Non-Af Amer) 17 POC Glucose (mg/dL) 77 Random Glucose 68 L Calcium 6.9 L Phosphorus 4.9 H Magnesium 2.0 Total Bilirubin 1.2 AST 742 H ALT 631 H D Alkaline Phosphatase 164 H Total Protein 6.2 L Albumin 2.6 L Globulin 3.6 Albumin/Globulin Ratio 0.7 L 08/02/17 11:57 WBC RBC Hgb Hct MCV MCH MCHC RDW Plt Count MPV Neut % (Auto) Lymph % (Auto) [place] % (Auto) Eos % (Auto) Baso % (Auto) Neut # Lymph # [place] # Eos # Baso # Sodium Potassium Chloride Carbon Dioxide Anion Gap BUN Creatinine Est GFR ( Amer) Est GFR (Non-Af Amer) POC Glucose (mg/dL) 91 Random Glucose Calcium Phosphorus Magnesium Total Bilirubin AST ALT Alkaline Phosphatase Total Protein Albumin Globulin Albumin/Globulin Ratio Fingerstick Blood Sugar Results: 91 Review of Systems - Review of Systems Systems not reviewed;Unavailable: Altered Mental Status Critical Care Progress Note - Nutrition Nutrition: Nutrition Category Date Time Status Pureed [Dysphagia/Modified Consistency Diet] [DIET] Diets 07/26/17 Dinner Active Assessment/Plan - Assessment and Plan (Free Text) Assessment: 82 y/o M with PMHx of CAD, HTN, CKD, dementia and obstructive uropathy requiring wise admitted 07/24 with lethargy and fever from the custodial. Patient was transferred to the ICU 07/30 and received a permacath 08/01 now POD # 1. Neuro: lethargic, dementia - tylenol 650 mg PO Q6 PRN pain Cardio: hypotensive secondary to sepsis: resolved, hx of CHF, CAD - EKG (07/26): 1st degree AV block, right axis deviation, possible anterolateral subendocardial injury - Echo (08/01/16): LVEF 65-70%, left atrial dilation, LVH - Dr. Lynn Thrasher consulted, help appreciated - aspirin 81 mg PO QD - plavix 75 mg PO QD - zetia 10 mg PO QD - midodrine 5mg po TID - holding hydralazine - hold lopressor Pulm: possible pneumonia - Saturating 100% on 5L NC - CXR (07/30): opacification of the mid to lower lung zones bilaterally with small bilateral pleural effusions - Respiratory alkalosis: 7.47/ pCO2 19/HCO3 - Arterial lactate (08/01): 1.4 Nephro: acute on chronic kidney disease, obstructive uropathy, POD#1 s/p permacath - BUN/Cr (08/02): BUN 61/3.5, improved - Dr. Peterson consulted, help appreciated - Dr. Parada consulted, help appreciated - r internal jugular permacath placed by surgery 08/01 - removed femoral TLC dialysis catheter - albumin 25% 12.5g IV given once last night for BP support during HD - bladder scan and d/c wise catheter GI: dysphagia, transaminitis - pureed diet - LFTs (08/02): Tbili 1.2 / AST 742 / ALT 631 / ALP 164 - swallow study performed, recommended NGT as patient is at risk for malnutrition and aspiration - Hold PO meds until NGT placed - HBsAg, HBsAb, HBcAb, HCV Ab all negative (07/31) - Abd U/s (08/01):suggested acalculous cholecystitis, hepatic steatosis, no obstructive uropathy, no definite hydronephrosis : BPH, urosepsis: resolved - Dr. Sparks consulted, help appreciated - cystoscopy by Dr. Sparks cancalled - flomax 0.4 mg PO daily - finasteride 5 mg PO daily Endo: hypothyroidism - levothyroxine 25mcg PO daily Hematology: anemia, leukocytosis likely secondary to sepsis - Hgb (08/02): 7.7, repeat CBC - Dr. Peterson recommends Epogen 10,000u 3x weekly - WBC (08/02): 10.9, improving ID: urosepsis, possible pneumonia - urine cx (07/24): final culture grew klebsiella pneumoniae and enterococcus faecalis, both sensitive to ciprofloxacin - Dr. Cantu consulted, help appreciated - Code sepsis called in ICU (07/30) - ciprofloxacin 200mg q12h -flagyl 500mg q8h (started on 08/02) - blood cultures (07/30): preliminary results show no growth - urine culture (07/29): final results show no growth - sputum culture (07/30): results pending Derm: bilateral heel wounds - Wound care consulted - vitamin C 500 mg PO BID - Multivitamin 1 tab PO QD PPX: - DVT: SCDs - hold heparin - GI: pepcid 20mg IVP daily <Veronica Henson - Last Filed: 08/02/17 19:13> CCU Subjective - Physician Review Subjective (Free Text): Patient was seen and examined at the bedside, Medical records reviewed, and management issues were discussed and formulated with the house staff. I have reviewed all the relevant clinical, laboratory, hemodynamic, radiographic data and medications Skin care, head of the bed elevation, glycemic control were addressed. Pain issues addressed -Failure to thrive -Dysphagia eval -Sepsis (off pressors) -remains hemodynamically stable I concur with resident's assessment and plan of care as transcribed in Dr. Wen note. 08/02/17 19:12 CCU Objective - Vital Signs / Intake & Output Vital Signs (Last 4 hours): Vital Signs Temp Pulse Resp BP Pulse Ox 08/02/17 17:58 93 H 15 88/48 L 100 08/02/17 17:27 88 14 89/50 L 100 08/02/17 17:00 85 12 100 08/02/17 16:27 85 13 103/61 100 08/02/17 16:00 97.9 F 08/02/17 15:27 86 13 96/58 L 99 Intake and Output (Last 8hrs): Intake & Output 08/02/17 08/02/17 08/02/17 06:59 14:59 22:59 Intake Total 660 740 280 Output Total 85 40 Balance 575 700 280 Weight 176 lb Intake: Intake, IV Amount 660 590 240 Right Forearm 660 590 240 Tube Feeding 40 Other 150 Output: Urine 85 40 Urethral (Wise) 85 40 - Medications Active Medications: Active Medications Generic Name Dose Route Start Last Admin Trade Name Freq PRN Reason Stop Dose Admin Acetaminophen 650 mg 07/24/17 16:35 Tylenol 325mg Tab PO Q6 PRN Fever >100.4 F Ascorbic Acid 500 mg 08/02/17 10:15 08/02/17 11:16 Vitamin C 500 Mg Tab PO 500 mg DAILY DAWIT Administration Aspirin 81 mg 07/25/17 10:00 08/02/17 11:15 Ecotrin PO 81 mg DAILY DAWIT Administration Clopidogrel Bisulfate 75 mg 07/25/17 10:00 08/02/17 11:16 Plavix PO 75 mg DAILY DAWIT Administration Ezetimibe 10 mg 08/01/17 22:00 08/01/17 23:53 Zetia PO 10 mg HS DAWIT Administration Famotidine 20 mg 08/02/17 10:00 08/02/17 11:16 Pepcid PO 20 mg DAILY DAWIT Administration Finasteride 5 mg 07/25/17 10:00 08/02/17 11:15 Proscar PO 5 mg DAILY DAWIT Administration Heparin Sodium (Porcine) 5,000 units 07/30/17 14:30 07/31/17 02:30 Heparin SC Not Given Q12H DAWIT Hydralazine HCl 25 mg 07/24/17 18:00 07/29/17 17:38 Apresoline PO Not Given BID [facility] Ciprofloxacin 100 mls @ 67 mls/hr 07/29/17 13:30 08/02/17 13:56 Cipro 200mg/100ml D5w IVPB 67 mls/hr Q12H DAWIT Administration Sodium Chloride 1,000 mls @ 70 mls/hr 07/31/17 19:00 08/02/17 16:00 Sodium Chloride 0.9% IV Not Given .[id number] [facility] Metronidazole 500 mg in 100 mls @ 100 mls/hr 08/02/17 14:00 08/02/17 15:28 Flagyl IVPB 100 mls/hr Q8 DAWIT Administration Levothyroxine Sodium 25 mcg 07/25/17 06:30 08/02/17 06:26 Synthroid PO 25 mcg DAILY@0630 DAWIT Administration Metoprolol Tartrate 25 mg 07/26/17 10:30 07/30/17 18:16 Lopressor PO Not Given BID DAWIT Midodrine 5 mg 08/01/17 14:00 08/02/17 17:43 Proamatine PO 5 mg TID DAWIT Administration Multivitamins 1 tab 08/02/17 10:15 08/02/17 11:16 Hexavitamin PO 1 tab DAILY DAWIT Administration Tamsulosin HCl 0.4 mg 07/25/17 10:00 08/02/17 11:18 Flomax PO 0.4 mg DAILY DAWIT Administration - Patient Studies Lab Studies: Microbiology Studies 07/30/17 09:54 Blood Culture - Preliminary Blood-Venous NO GROWTH AFTER 3 DAYS 07/30/17 09:54 Blood Culture - Preliminary Blood-Venous NO GROWTH AFTER 3 DAYS Lab Studies 08/02/17 08/02/17 08/02/17 Range/Units 17:56 16:55 11:57 WBC 11.9 H (4.8-10.8) K/uL RBC 2.62 L (4.40-5.90) Mil/uL Hgb 7.3 L (12.0-18.0) g/dL Hct 22.8 L (35.0-51.0) % MCV 86.9 (80.0-94.0) fL MCH 28.0 (27.0-31.0) pg MCHC 32.2 L (33.0-37.0) g/dL RDW 16.7 H (11.5-14.5) % Plt Count 170 (130-400) K/uL MPV 9.0 (7.2-11.7) fL Neut % (Auto) (50.0-75.0) % Lymph % (Auto) (20.0-40.0) % [place] % (Auto) (0.0-10.0) % Eos % (Auto) (0.0-4.0) % Baso % (Auto) (0.0-2.0) % Neut # (1.8-7.0) K/uL Lymph # (1.0-4.3) K/uL [place] # (0.0-0.8) K/uL Eos # (0.0-0.7) K/uL Baso # (0.0-0.2) K/uL Sodium (132-148) mmol/L Potassium (3.6-5.2) mmol/L Chloride (98-107) mmol/L Carbon Dioxide (22-30) mmol/L Anion Gap (10-20) BUN (9-20) mg/dL Creatinine (0.8-1.5) mg/dL Est GFR ( Amer) Est GFR (Non-Af Amer) POC Glucose (mg/dL) 95 91 (65-110) mg/dL Random Glucose (75-110) mg/dL Calcium (8.6-10.4) mg/dl Phosphorus (2.5-4.5) mg/dL Magnesium (1.6-2.3) mg/dL Total Bilirubin (0.2-1.3) mg/dL AST (17-59) U/L ALT (21-72) U/L Alkaline Phosphatase (38-126) U/L Total Protein (6.3-8.3) g/dL Albumin (3.5-5.0) g/dL Globulin (2.2-3.9) gm/dL Albumin/Globulin Ratio (1.0-2.1) Blood Type Antibody Screen 08/02/17 08/02/17 08/02/17 Range/Units 07:33 06:17 06:17 WBC 10.9 H (4.8-10.8) K/uL RBC 2.76 L (4.40-5.90) Mil/uL Hgb 7.7 L (12.0-18.0) g/dL Hct 24.0 L (35.0-51.0) % MCV 86.8 (80.0-94.0) fL MCH 27.9 (27.0-31.0) pg MCHC 32.1 L (33.0-37.0) g/dL RDW 16.8 H (11.5-14.5) % Plt Count 181 (130-400) K/uL MPV 8.9 (7.2-11.7) fL Neut % (Auto) 84.3 H (50.0-75.0) % Lymph % (Auto) 10.6 L (20.0-40.0) % [place] % (Auto) 4.1 (0.0-10.0) % Eos % (Auto) 0.7 (0.0-4.0) % Baso % (Auto) 0.3 (0.0-2.0) % Neut # 9.2 H (1.8-7.0) K/uL Lymph # 1.2 (1.0-4.3) K/uL [place] # 0.5 (0.0-0.8) K/uL Eos # 0.1 (0.0-0.7) K/uL Baso # 0.0 (0.0-0.2) K/uL Sodium 138 (132-148) mmol/L Potassium 3.7 (3.6-5.2) mmol/L Chloride 99 (98-107) mmol/L Carbon Dioxide 22 (22-30) mmol/L Anion Gap 20 (10-20) BUN 61 H (9-20) mg/dL Creatinine 3.5 H (0.8-1.5) mg/dL Est GFR ( Amer) 20 Est GFR (Non-Af Amer) 17 POC Glucose (mg/dL) 77 (65-110) mg/dL Random Glucose 68 L (75-110) mg/dL Calcium 6.9 L (8.6-10.4) mg/dl Phosphorus 4.9 H (2.5-4.5) mg/dL Magnesium 2.0 (1.6-2.3) mg/dL Total Bilirubin 1.2 (0.2-1.3) mg/dL AST 742 H (17-59) U/L ALT 631 H D (21-72) U/L Alkaline Phosphatase 164 H (38-126) U/L Total Protein 6.2 L (6.3-8.3) g/dL Albumin 2.6 L (3.5-5.0) g/dL Globulin 3.6 (2.2-3.9) gm/dL Albumin/Globulin Ratio 0.7 L (1.0-2.1) Blood Type Antibody Screen 08/02/17 07/31/17 Range/Units 04:42 12:18 WBC (4.8-10.8) K/uL RBC (4.40-5.90) Mil/uL Hgb (12.0-18.0) g/dL Hct (35.0-51.0) % MCV (80.0-94.0) fL MCH (27.0-31.0) pg MCHC (33.0-37.0) g/dL RDW (11.5-14.5) % Plt Count (130-400) K/uL MPV (7.2-11.7) fL Neut % (Auto) (50.0-75.0) % Lymph % (Auto) (20.0-40.0) % [place] % (Auto) (0.0-10.0) % Eos % (Auto) (0.0-4.0) % Baso % (Auto) (0.0-2.0) % Neut # (1.8-7.0) K/uL Lymph # (1.0-4.3) K/uL [place] # (0.0-0.8) K/uL Eos # (0.0-0.7) K/uL Baso # (0.0-0.2) K/uL Sodium (132-148) mmol/L Potassium (3.6-5.2) mmol/L Chloride (98-107) mmol/L Carbon Dioxide (22-30) mmol/L Anion Gap (10-20) BUN (9-20) mg/dL Creatinine (0.8-1.5) mg/dL Est GFR ( Amer) Est GFR (Non-Af Amer) POC Glucose (mg/dL) 87 (65-110) mg/dL Random Glucose (75-110) mg/dL Calcium (8.6-10.4) mg/dl Phosphorus (2.5-4.5) mg/dL Magnesium (1.6-2.3) mg/dL Total Bilirubin (0.2-1.3) mg/dL AST (17-59) U/L ALT (21-72) U/L Alkaline Phosphatase (38-126) U/L Total Protein (6.3-8.3) g/dL Albumin (3.5-5.0) g/dL Globulin (2.2-3.9) gm/dL Albumin/Globulin Ratio (1.0-2.1) Blood Type O POSITIVE Antibody Screen Negative Laboratory Results - last 24 hr 07/31/17 08/02/17 08/02/17 12:18 04:42 06:17 WBC 10.9 H RBC 2.76 L Hgb 7.7 L Hct 24.0 L MCV 86.8 MCH 27.9 MCHC 32.1 L RDW 16.8 H Plt Count 181 MPV 8.9 Neut % (Auto) 84.3 H Lymph % (Auto) 10.6 L [place] % (Auto) 4.1 Eos % (Auto) 0.7 Baso % (Auto) 0.3 Neut # 9.2 H Lymph # 1.2 [place] # 0.5 Eos # 0.1 Baso # 0.0 Sodium Potassium Chloride Carbon Dioxide Anion Gap BUN Creatinine Est GFR ( Amer) Est GFR (Non-Af Amer) POC Glucose (mg/dL) 87 Random Glucose Calcium Phosphorus Magnesium Total Bilirubin AST ALT Alkaline Phosphatase Total Protein Albumin Globulin Albumin/Globulin Ratio Blood Type O POSITIVE Antibody Screen Negative 08/02/17 08/02/17 08/02/17 06:17 07:33 11:57 WBC RBC Hgb Hct MCV MCH MCHC RDW Plt Count MPV Neut % (Auto) Lymph % (Auto) [place] % (Auto) Eos % (Auto) Baso % (Auto) Neut # Lymph # [place] # Eos # Baso # Sodium 138 Potassium 3.7 Chloride 99 Carbon Dioxide 22 Anion Gap 20 BUN 61 H Creatinine 3.5 H Est GFR ( Amer) 20 Est GFR (Non-Af Amer) 17 POC Glucose (mg/dL) 77 91 Random Glucose 68 L Calcium 6.9 L Phosphorus 4.9 H Magnesium 2.0 Total Bilirubin 1.2 AST 742 H ALT 631 H D Alkaline Phosphatase 164 H Total Protein 6.2 L Albumin 2.6 L Globulin 3.6 Albumin/Globulin Ratio 0.7 L Blood Type Antibody Screen 08/02/17 08/02/17 16:55 17:56 WBC 11.9 H RBC 2.62 L Hgb 7.3 L Hct 22.8 L MCV 86.9 MCH 28.0 MCHC 32.2 L RDW 16.7 H Plt Count 170 MPV 9.0 Neut % (Auto) Lymph % (Auto) [place] % (Auto) Eos % (Auto) Baso % (Auto) Neut # Lymph # [place] # Eos # Baso # Sodium Potassium Chloride Carbon Dioxide Anion Gap BUN Creatinine Est GFR ( Amer) Est GFR (Non-Af Amer) POC Glucose (mg/dL) 95 Random Glucose Calcium Phosphorus Magnesium Total Bilirubin AST ALT Alkaline Phosphatase Total Protein Albumin Globulin Albumin/Globulin Ratio Blood Type Antibody Screen Critical Care Progress Note - Nutrition Nutrition: Nutrition Category Date Time Status Pureed [Dysphagia/Modified Consistency Diet] [DIET] Diets 07/26/17 Dinner Active
[2017-08-02] MEDS: metroNIDAZOLE IV 500 mg/100 ml 500 MG/100 ML BAG IVPB SCH ×2 (15:28→21:30)
[2017-08-02] MEDS: Sodium Chloride 0.9% 1,000 ML IV SCH ×2 (16:00→21:29)
[2017-08-02 17:02] LABS: HEMATOCRIT 22.8 % (35.0-51.0); MEAN CELL VOLUME 86.9 fL (80.0-94.0); MEAN CORPUSCULAR HGB CONC 32.2 g/dL (33.0-37.0); RED CELL DISTRIBUTION WIDTH 16.7 % (11.5-14.5); WHITE BLOOD COUNT 11.9 K/uL (4.8-10.8)
--- NOTE | 2017-08-02 18:26 | CP.PCM.PN ---
Subjective - Date & Time of Evaluation Date of Evaluation: 08/02/17 Time of Evaluation: 06:00 - Subjective Subjective: events noted agree with line removal JOSH Objective - Vital Signs/Intake and Output Vital Signs (last 24 hours): Temp Pulse Resp BP Pulse Ox 97.9 F 93 H 15 88/48 L 100 08/02/17 16:00 08/02/17 17:58 08/02/17 17:58 08/02/17 17:58 08/02/17 17:58 Intake and Output: 08/02/17 08/02/17 06:59 18:59 Intake Total 940 1020 Output Total 145 40 Balance 795 980 - Medications Medications: Current Medications Acetaminophen (Tylenol 325mg Tab) 650 mg PO Q6 PRN PRN Reason: Fever >100.4 F Ascorbic Acid (Vitamin C 500 Mg Tab) 500 mg PO DAILY [facility] Last Admin: 08/02/17 11:16 Dose: 500 mg Aspirin (Ecotrin) 81 mg PO DAILY [facility] Last Admin: 08/02/17 11:15 Dose: 81 mg Clopidogrel Bisulfate (Plavix) 75 mg PO DAILY [facility] Last Admin: 08/02/17 11:16 Dose: 75 mg Ezetimibe (Zetia) 10 mg PO HS [facility] Last Admin: 08/01/17 23:53 Dose: 10 mg Famotidine (Pepcid) 20 mg PO DAILY [facility] Last Admin: 08/02/17 11:16 Dose: 20 mg Finasteride (Proscar) 5 mg PO DAILY [facility] Last Admin: 08/02/17 11:15 Dose: 5 mg Heparin Sodium (Porcine) (Heparin) 5,000 units SC Q12H [facility] Last Admin: 07/31/17 02:30 Dose: Not Given Hydralazine HCl (Apresoline) 25 mg PO BID [facility] Last Admin: 07/29/17 17:38 Dose: Not Given Ciprofloxacin (Cipro 200mg/100ml D5w) 100 mls @ 67 mls/hr IVPB Q12H [facility] Last Admin: 08/02/17 13:56 Dose: 67 mls/hr Sodium Chloride (Sodium Chloride 0.9%) 1,000 mls @ 70 mls/hr IV .[id number] [facility] Last Admin: 08/02/17 16:00 Dose: Not Given Metronidazole (Flagyl) 500 mg in 100 mls @ 100 mls/hr IVPB Q8 [facility] Last Admin: 08/02/17 15:28 Dose: 100 mls/hr Levothyroxine Sodium (Synthroid) 25 mcg PO DAILY@0630 [facility] Last Admin: 08/02/17 06:26 Dose: 25 mcg Metoprolol Tartrate (Lopressor) 25 mg PO BID [facility] Last Admin: 07/30/17 18:16 Dose: Not Given Midodrine (Proamatine) 5 mg PO TID [facility] Last Admin: 08/02/17 17:43 Dose: 5 mg Multivitamins (Hexavitamin) 1 tab PO DAILY [facility] Last Admin: 08/02/17 11:16 Dose: 1 tab Tamsulosin HCl (Flomax) 0.4 mg PO DAILY [facility] Last Admin: 08/02/17 11:18 Dose: 0.4 mg - Labs Labs: 08/02/17 16:55 08/02/17 06:17 PT 16.0 SECONDS (9.7-12.2) H 07/30/17 12:16 INR 1.4 07/30/17 12:16 APTT 30 SECONDS (21-34) 07/30/17 08:54 - Constitutional Appears: Non-toxic, Chronically Ill - Head Exam Head Exam: NORMOCEPHALIC - Eye Exam Eye Exam: PERRL - ENT Exam ENT Exam: Mucous Membranes Dry - Neck Exam Neck Exam: absent: Lymphadenopathy - Respiratory Exam Respiratory Exam: Decreased Breath Sounds - Cardiovascular Exam Cardiovascular Exam: REGULAR RHYTHM Assessment and Plan (1) Fever Status: Acute (2) Leukocytosis Status: Acute (3) UTI (urinary tract infection) Status: Acute (4) Acute renal failure Status: Acute (5) Generalized weakness Status: Acute (6) Hyperkalemia Status: Acute (7) Troponin level elevated Status: Acute (8) UTI (urinary tract infection) due to Enterococcus Status: Acute (9) UTI (urinary tract infection) due to Enterococcus Status: Acute (10) UTI due to Klebsiella species Status: Acute (11) UTI due to Klebsiella species Status: Acute
--- NOTE | 2017-08-02 21:59 | CP.PCM.PN ---
Subjective - Date & Time of Evaluation Date of Evaluation: 08/02/17 Time of Evaluation: 19:00 - Subjective Subjective: Pt seen and examined, is improving, his BUN/creatine is improving Objective - Vital Signs/Intake and Output Vital Signs (last 24 hours): Temp Pulse Resp BP Pulse Ox 98.5 F 91 H 18 95/47 L 99 08/02/17 20:00 08/02/17 20:00 08/02/17 20:00 08/02/17 20:00 08/02/17 19:00 Intake and Output: 08/02/17 08/03/17 18:59 06:59 Intake Total 1210 270 Output Total 200 Balance 1010 270 - Medications Medications: Current Medications Acetaminophen (Tylenol 325mg Tab) 650 mg PO Q6 PRN PRN Reason: Fever >100.4 F Ascorbic Acid (Vitamin C 500 Mg Tab) 500 mg PO DAILY [facility] Last Admin: 08/02/17 11:16 Dose: 500 mg Aspirin (Ecotrin) 81 mg PO DAILY [facility] Last Admin: 08/02/17 11:15 Dose: 81 mg Clopidogrel Bisulfate (Plavix) 75 mg PO DAILY [facility] Last Admin: 08/02/17 11:16 Dose: 75 mg Ezetimibe (Zetia) 10 mg PO HS [facility] Last Admin: 08/02/17 21:29 Dose: 10 mg Famotidine (Pepcid) 20 mg PO DAILY [facility] Last Admin: 08/02/17 11:16 Dose: 20 mg Finasteride (Proscar) 5 mg PO DAILY [facility] Last Admin: 08/02/17 11:15 Dose: 5 mg Heparin Sodium (Porcine) (Heparin) 5,000 units SC Q12H [facility] Last Admin: 07/31/17 02:30 Dose: Not Given Hydralazine HCl (Apresoline) 25 mg PO BID [facility] Last Admin: 07/29/17 17:38 Dose: Not Given Ciprofloxacin (Cipro 200mg/100ml D5w) 100 mls @ 67 mls/hr IVPB Q12H [facility] Last Admin: 08/02/17 13:56 Dose: 67 mls/hr Sodium Chloride (Sodium Chloride 0.9%) 1,000 mls @ 70 mls/hr IV .[id number] [facility] Last Admin: 08/02/17 21:29 Dose: 70 mls/hr Metronidazole (Flagyl) 500 mg in 100 mls @ 100 mls/hr IVPB Q8 [facility] Last Admin: 08/02/17 21:30 Dose: 100 mls/hr Levothyroxine Sodium (Synthroid) 25 mcg PO DAILY@0630 [facility] Last Admin: 08/02/17 06:26 Dose: 25 mcg Metoprolol Tartrate (Lopressor) 25 mg PO BID [facility] Last Admin: 07/30/17 18:16 Dose: Not Given Midodrine (Proamatine) 5 mg PO TID [facility] Last Admin: 08/02/17 17:43 Dose: 5 mg Multivitamins (Hexavitamin) 1 tab PO DAILY [facility] Last Admin: 08/02/17 11:16 Dose: 1 tab Tamsulosin HCl (Flomax) 0.4 mg PO DAILY [facility] Last Admin: 08/02/17 11:18 Dose: 0.4 mg - Labs Labs: 08/02/17 16:55 08/02/17 06:17 PT 16.0 SECONDS (9.7-12.2) H 07/30/17 12:16 INR 1.4 07/30/17 12:16 APTT 30 SECONDS (21-34) 07/30/17 08:54 - Constitutional Appears: No Acute Distress, Other (looks weak with NG tube in place for feeding , no resp distress) - Head Exam Head Exam: ATRAUMATIC, NORMAL INSPECTION, NORMOCEPHALIC - Eye Exam Eye Exam: EOMI, Normal appearance, PERRL Pupil Exam: NORMAL ACCOMODATION, PERRL Assessment and Plan (1) Fever Status: Acute (2) Leukocytosis Status: Acute (3) UTI (urinary tract infection) Assessment & Plan: making urine BUN/creat improving Status: Acute (4) Leg ulcer Status: Acute (5) Toxic metabolic encephalopathy Assessment & Plan: continue antibiiotics ID eval monitor pt Status: Acute
--- NOTE | 2017-08-03 00:41 | CON ---
DATE: 07/31/2017 HISTORY OF PRESENT ILLNESS: The patient currently has respiratory problem, and he was transferred to the ICU. He was unstable. Blood pressure maintained with medication. His Corley is functioning well, but the patient is in poor general condition. I will follow him. Yobani Sparks MD
[2017-08-03] MEDS: Ciprofloxacin 200mg/100ml D5W 100 ML IVPB SCH ×2 (00:57→13:56)
[2017-08-03] MEDS: Sodium Chloride 0.9% 1,000 ML IV SCH ×2 (04:30→13:47)
[2017-08-03] MEDS: metroNIDAZOLE IV 500 mg/100 ml 500 MG/100 ML BAG IVPB SCH ×3 (06:00→22:43)
[2017-08-03 06:34] LABS: BASO # 0.1 K/uL (0.0-0.2); BASO % 0.6 % (0.0-2.0); EOS # 0.1 K/uL (0.0-0.7); HEMATOCRIT 26.8 % (35.0-51.0); LYMPH # 1.2 K/uL (1.0-4.3); LYMPH % 10.5 % (20.0-40.0); MEAN CORPUSCULAR HEMOGLOBIN 28.4 pg (27.0-31.0); MEAN CORPUSCULAR HGB CONC 32.3 g/dL (33.0-37.0); MEAN PLATELET VOLUME 8.9 fL (7.2-11.7); MONO # 0.5 K/uL (0.0-0.8); NRBC % 0.2 % (0.0-2.0); RED CELL DISTRIBUTION WIDTH 16.9 % (11.5-14.5); WHITE BLOOD COUNT 11.9 K/uL (4.8-10.8)
[2017-08-03 06:45] LABS: POTASSIUM 3.6 mmol/L (3.6-5.2)
[2017-08-03 06:47] LABS: ALB/GLOB RATIO 0.7 (1.0-2.1); BILIRUBIN,TOTAL 1.2 mg/dL (0.2-1.3); TOTAL PROTEIN 6.2 g/dL (6.3-8.3)
[2017-08-03 06:48] LABS: CALCIUM 6.9 mg/dl (8.6-10.4)
[2017-08-03] MEDS: Levothyroxine 25 MCG TAB PO SCH (06:57)
[2017-08-03] MEDS: Multiple Vitamins Tab PO SCH (09:27)
--- NOTE | 2017-08-03 10:30 | CP.PCM.PN ---
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 Hypotension 3. Anmeia 4. 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, ok to remove left fv dialysis catheter, and watch for bleeding after removal consider to transfuse Objective - Vital Signs/Intake and Output Vital Signs (last 24 hours): Temp Pulse Resp BP Pulse Ox 97.9 F 88 12 99/57 L 100 08/03/17 08:00 08/03/17 08:20 08/03/17 08:20 08/03/17 08:21 08/03/17 08:20 Intake and Output: 08/03/17 08/03/17 06:59 18:59 Intake Total 1797 220 Balance 1797 220 - Medications Medications: Current Medications Ascorbic Acid (Vitamin C 500 Mg Tab) 500 mg PO DAILY [facility] Last Admin: 08/03/17 09:27 Dose: 500 mg Aspirin (Ecotrin) 81 mg PO DAILY [facility] Last Admin: 08/03/17 09:27 Dose: 81 mg Clopidogrel Bisulfate (Plavix) 75 mg PO DAILY [facility] Last Admin: 08/03/17 09:27 Dose: 75 mg Famotidine (Pepcid) 20 mg PO DAILY [facility] Last Admin: 08/03/17 09:27 Dose: 20 mg Finasteride (Proscar) 5 mg PO DAILY [facility] Last Admin: 08/03/17 09:27 Dose: 5 mg Heparin Sodium (Porcine) (Heparin) 5,000 units SC Q12H [facility] Last Admin: 07/31/17 02:30 Dose: Not Given Hydralazine HCl (Apresoline) 25 mg PO BID [facility] Last Admin: 07/29/17 17:38 Dose: Not Given Ciprofloxacin (Cipro 200mg/100ml D5w) 100 mls @ 67 mls/hr IVPB Q12H [facility] Last Admin: 08/03/17 00:57 Dose: 67 mls/hr Sodium Chloride (Sodium Chloride 0.9%) 1,000 mls @ 70 mls/hr IV .[id number] [facility] Last Admin: 08/03/17 04:30 Dose: Not Given Metronidazole (Flagyl) 500 mg in 100 mls @ 100 mls/hr IVPB Q8 [facility] Last Admin: 08/03/17 06:00 Dose: 100 mls/hr Levothyroxine Sodium (Synthroid) 25 mcg PO DAILY@0630 [facility] Last Admin: 08/03/17 06:57 Dose: 25 mcg Metoprolol Tartrate (Lopressor) 25 mg PO BID [facility] Last Admin: 07/30/17 18:16 Dose: Not Given Midodrine (Proamatine) 5 mg PO TID [facility] Last Admin: 08/03/17 09:27 Dose: 5 mg Multivitamins (Hexavitamin) 1 tab PO DAILY [facility] Last Admin: 08/03/17 09:27 Dose: 1 tab Tamsulosin HCl (Flomax) 0.4 mg PO DAILY [facility] Last Admin: 08/02/17 11:18 Dose: 0.4 mg - Labs Labs: 08/03/17 06:23 08/03/17 06:25 PT 16.0 SECONDS (9.7-12.2) H 07/30/17 12:16 INR 1.4 07/30/17 12:16 APTT 30 SECONDS (21-34) 07/30/17 08:54
--- NOTE | 2017-08-03 11:35 | CP.PCM.PCO ---
Physician Communication Note - Physician Communication Note Physician Communication Note: Patient given 1 unit of blood overnight. now Hypotensive. r/o retroperitone Addendum Addendum: 08/03/17 11:34 Patient hypotensive Hb/hct decreased overnight. 1 unit of blood given. NOw hypotensive again. r/o retroperitoneal bleeding -d/w
[2017-08-03 11:43] LABS: BASO # 0.1 K/uL (0.0-0.2); BASO % 0.6 % (0.0-2.0); EOS # 0.1 K/uL (0.0-0.7); EOS % 1.1 % (0.0-4.0); HEMATOCRIT 27.5 % (35.0-51.0); LYMPH # 1.5 K/uL (1.0-4.3); LYMPH % 11.6 % (20.0-40.0); MEAN CELL VOLUME 86.6 fL (80.0-94.0); MEAN CORPUSCULAR HEMOGLOBIN 27.9 pg (27.0-31.0); MEAN CORPUSCULAR HGB CONC 32.2 g/dL (33.0-37.0); MEAN PLATELET VOLUME 8.5 fL (7.2-11.7); MONO # 0.5 K/uL (0.0-0.8); NRBC % 0.3 % (0.0-2.0); RED CELL DISTRIBUTION WIDTH 17.5 % (11.5-14.5); WHITE BLOOD COUNT 13.3 K/uL (4.8-10.8)
--- NOTE | 2017-08-03 13:16 | CP.PCM.PN ---
Subjective - Date & Time of Evaluation Date of Evaluation: 08/03/17 Time of Evaluation: 13:15 - Subjective Subjective: getting hd.ng tube for feeding.needs peg Objective - Vital Signs/Intake and Output Vital Signs (last 24 hours): Temp Pulse Resp BP Pulse Ox 97.9 F 92 H 16 105/53 L 97 08/03/17 12:00 08/03/17 13:07 08/03/17 13:07 08/03/17 13:07 08/03/17 12:34 Intake and Output: 08/03/17 08/03/17 06:59 18:59 Intake Total 1796 676 Balance 1791 676 - Medications Medications: Current Medications Ascorbic Acid (Vitamin C 500 Mg Tab) 500 mg PO DAILY [facility] Last Admin: 08/03/17 09:27 Dose: 500 mg Aspirin (Ecotrin) 81 mg PO DAILY [facility] Last Admin: 08/03/17 09:27 Dose: 81 mg Clopidogrel Bisulfate (Plavix) 75 mg PO DAILY [facility] Last Admin: 08/03/17 09:27 Dose: 75 mg Epoetin Jacobo (Procrit) 10,000 unit SC TTS [facility] Famotidine (Pepcid) 20 mg PO DAILY [facility] Last Admin: 08/03/17 09:27 Dose: 20 mg Ferric Sodium Gluconate Complex (Ferrlecit) 125 mg IVPB TTS [facility] Stop: 08/14/17 10:01 Finasteride (Proscar) 5 mg PO DAILY [facility] Last Admin: 08/03/17 09:27 Dose: 5 mg Heparin Sodium (Porcine) (Heparin) 5,000 units SC Q12H [facility] Last Admin: 07/31/17 02:30 Dose: Not Given Hydralazine HCl (Apresoline) 25 mg PO BID [facility] Last Admin: 07/29/17 17:38 Dose: Not Given Ciprofloxacin (Cipro 200mg/100ml D5w) 100 mls @ 67 mls/hr IVPB Q12H [facility] Last Admin: 08/03/17 00:57 Dose: 67 mls/hr Metronidazole (Flagyl) 500 mg in 100 mls @ 100 mls/hr IVPB Q8 [facility] Last Admin: 08/03/17 06:00 Dose: 100 mls/hr Sodium Chloride (Sodium Chloride 0.9%) 1,000 mls @ 42 mls/hr IV .[id number] [facility] Levothyroxine Sodium (Synthroid) 25 mcg PO DAILY@0630 [facility] Last Admin: 08/03/17 06:57 Dose: 25 mcg Metoprolol Tartrate (Lopressor) 25 mg PO BID [facility] Last Admin: 07/30/17 18:16 Dose: Not Given Midodrine (Proamatine) 5 mg PO TID [facility] Last Admin: 08/03/17 09:27 Dose: 5 mg Multivitamins (Hexavitamin) 1 tab PO DAILY [facility] Last Admin: 08/03/17 09:27 Dose: 1 tab Paricalcitol (Zemplar) 2 mcg IV TTS [facility] Tamsulosin HCl (Flomax) 0.4 mg PO DAILY [facility] Last Admin: 08/02/17 11:18 Dose: 0.4 mg - Labs Labs: 08/03/17 11:34 08/03/17 06:25 PT 16.0 SECONDS (9.7-12.2) H 07/30/17 12:16 INR 1.4 07/30/17 12:16 APTT 30 SECONDS (21-34) 07/30/17 08:54 - Constitutional Appears: No Acute Distress, Chronically Ill - Head Exam Head Exam: NORMOCEPHALIC - Respiratory Exam Respiratory Exam: Clear to Ausculation Bilateral - Cardiovascular Exam Cardiovascular Exam: REGULAR RHYTHM - GI/Abdominal Exam GI & Abdominal Exam: Soft - Extremities Exam Extremities Exam: absent: Pedal Edema - Neurological Exam Neurological Exam: Alert Assessment and Plan - Assessment and Plan (Free Text) Assessment: uro [email or web address]
--- NOTE | 2017-08-03 14:17 | PN ---
DATE: LOCATION: ICU 16 SUBJECTIVE: This is an 82-year-old male seen and examined in the Intensive Care Unit with the staff on the floor, with reported background hematoma of unclear etiology, was status post blood transfusion. The patient is somewhat not responding well to normal stimuli, but tolerates feeding fairly. The entire chart is reviewed including, but not limited to the most recent laboratory and radiology study results, current and previous medications, current and previous medical events. LABORATORY DATA: Today's lab showed white blood cells of 11.9 with low hemoglobin of 8.6, low hematocrit 26.8, but normal platelet count with BUN of 77, creatinine 3.9, with low calcium 6.9, increased phosphorus 6, with subsequent improvement, but not adequate of AST 5.4, ALT 522, alkaline phosphatase almost the same 166 with low albumin 2.5 and low total protein 6.2. PHYSICAL EXAMINATION GENERAL: An 82-year-old male. VITAL SIGNS: Afebrile with pulse of 86 and blood pressure 106/60. HEENT: Showed pale, dry mucoid membrane, nonicteric sclerae. LUNGS: Few scattered crepitation and decreased air entry at bases. HEART: Positive S1 and S2. ABDOMEN: Soft. Bowel sounds are present. No mass or organomegaly. No rebound tenderness or guarding. EXTREMITIES: Lower extremity mild edematous changes. No clubbing or cyanosis. NEUROLOGIC: No reported new neurological deficits, sensory or motor. IMPRESSION: 1. Anemia that could be secondary to chronic disease versus gastrointestinal blood loss, upper versus lower. 2. Leukocytosis with fever and possible aspiration pneumonia and/or secondary to urinary tract infection. 3. Acute renal failure. 4. Elevated troponin level with possible acute myocardial infarction. 5. Malnutrition with hypoalbuminemia, with failure to thrive. 6. The patient is a candidate for potential PEG insertion when he is more stabilized clinically. 7. Known history of hypertension, the patient is hypotensive in the meantime due to infectious process, known history of osteoarthritis with gouty arthritis. 8. Abnormal liver function test that could be secondary to acute septicemia versus right-sided heart failure. SUGGESTIONS: 1. Agree with your plan. 2. Treat underlying infectious process. 3. Repeat stool for occult blood. 4. Blood transfusion to keep hemoglobin around 10 gram percent. 5. The patient is for potential PEG insertion after receiving legal consent from the legal guardian, otherwise close observation only to follow. Katia Pardo MD cc: Katia Pardo MD
--- NOTE | 2017-08-03 14:59 | RAD ---
HISTORY: r/o aspiration pneumonia COMPARISON: 08/01/2017. FINDINGS: The right-sided dialysis catheter terminates at the cavoatrial junction. The nasogastric tube terminates in the stomach. LUNGS: There is worsening airspace disease in the right mid lung and lower lobe. The left lung is clear. There is pulmonary venous congestion. PLEURA: Bilateral pleural effusions, larger on the right. No pneumothorax apparent. CARDIOVASCULAR: The heart is enlarged. Status post CABG. OSSEOUS STRUCTURES: No significant abnormalities. VISUALIZED UPPER ABDOMEN: Normal. OTHER FINDINGS: None. IMPRESSION: 1. Worsening airspace disease in the right mid lung and lower lobe which could represent aspiration pneumonia in the appropriate clinical setting. Follow-up is advised. 2. Persistent moderate cardiomegaly and pleural effusions, larger on the right.
--- NOTE | 2017-08-03 15:11 | CP.CCUPN ---
CCU Subjective - Physician Review Events Since Last Encounter (Free Text): Patient received 1 unit of blood. Patient remains off pressors. 08/03/17 15:09 Subjective (Free Text): ADult male seen today. More awake, alert, tolerating NG tube feeds. 08/03/17 15:09 CCU Objective - Vital Signs / Intake & Output Vital Signs (Last 4 hours): Vital Signs Temp Pulse Pulse Resp BP BP Pulse Ox 08/03/17 14:04 92 H 13 98/59 L 98 08/03/17 14:00 97 F L 91 H 17 94/54 L 98 08/03/17 13:49 91 H 15 94/57 L 98 08/03/17 13:36 92 H 12 97/57 L 100 08/03/17 13:30 91 H 15 97/57 L 08/03/17 13:19 90 15 99/52 L 98 08/03/17 13:07 92 H 16 105/53 L 08/03/17 13:04 91 H 15 101/57 L 98 08/03/17 12:49 91 H 15 105/53 L 97 08/03/17 12:34 92 H 19 97/50 L 97 08/03/17 12:30 92 H 17 95/59 L 08/03/17 12:19 89 18 95/59 L 99 08/03/17 12:15 92 H 16 97/52 L 08/03/17 12:05 92 H 16 97/52 L 99 08/03/17 12:00 97.9 F 97 H 16 101/52 L 08/03/17 11:50 91 H 18 101/52 L 97 08/03/17 11:45 92 H 18 95/52 L 08/03/17 11:44 92 H 16 95/52 L 90 L 08/03/17 11:30 91 H 14 103/58 L 97 08/03/17 11:26 97.9 F 95 H 18 103/58 L 99 08/03/17 11:23 97.9 F 95 H 18 104/56 L 08/03/17 11:22 95 H 21 104/56 L 97 Intake and Output (Last 8hrs): Intake & Output 08/03/17 08/03/17 08/03/17 06:59 14:59 22:59 Intake Total 1312 865 Balance 1312 865 Weight 179 lb 0.246 oz Intake: Intake, IV Amount 490 445 Right Wrist 490 445 Tube Feeding 210 320 Blood Product 512 Apheresis Rbc Cp2d As3 Lr 282 1st Unit [id number] Other 100 100 Apheresis Rbc Cp2d As3 Lr 100 1st Unit [id number] Other: # Bowel Movements 1 1 - Physical Exam Physical Exam Limitations: Positive for: Altered Mental Status Head: Positive for: Atraumatic, Normocephalic, Other Extroacular Muscles: Positive for: EOMI Mouth: Positive for: Moist Mucous Membranes Neck: Positive for: Other Respiratory/Chest: Positive for: Good Air Exchange, Rhonchi. Negative for: Accessory Muscle Use Abdomen: Negative for: Tenderness, Distention Lower Extremity: Positive for: Edema, Other (dressings clean/ dry/ intact) Skin: Positive for: Warm, Normal Color, Other (right arm, hyperpigmentation with blister resolving on right arm, BP cuff on left arm, right arm swelling improved) Psychiatric: Positive for: Alert - Medications Active Medications: Active Medications Generic Name Dose Route Start Last Admin Trade Name Freq PRN Reason Stop Dose Admin Ascorbic Acid 500 mg 08/02/17 10:15 08/03/17 09:27 Vitamin C 500 Mg Tab PO 500 mg DAILY DAWIT Administration Aspirin 81 mg 07/25/17 10:00 08/03/17 09:27 Ecotrin PO 81 mg DAILY DAWIT Administration Clopidogrel Bisulfate 75 mg 07/25/17 10:00 08/03/17 09:27 Plavix PO 75 mg DAILY DAWIT Administration Epoetin Jacobo 10,000 unit 08/06/17 10:00 Procrit SC TTS [facility] Famotidine 20 mg 08/02/17 10:00 08/03/17 09:27 Pepcid PO 20 mg DAILY DAWIT Administration Ferric Sodium Gluconate Complex 125 mg 08/06/17 10:00 Ferrlecit IVPB 08/14/17 10:01 TTS [facility] Finasteride 5 mg 07/25/17 10:00 08/03/17 09:27 Proscar PO 5 mg DAILY DAWIT Administration Heparin Sodium (Porcine) 5,000 units 07/30/17 14:30 07/31/17 02:30 Heparin SC Not Given Q12H [facility] Hydralazine HCl 25 mg 07/24/17 18:00 07/29/17 17:38 Apresoline PO Not Given BID DAWIT Ciprofloxacin 100 mls @ 67 mls/hr 07/29/17 13:30 08/03/17 13:56 Cipro 200mg/100ml D5w IVPB 67 mls/hr Q12H DAWIT Administration Metronidazole 500 mg in 100 mls @ 100 mls/hr 08/02/17 14:00 08/03/17 06:00 Flagyl IVPB 100 mls/hr Q8 DAWIT Administration Sodium Chloride 1,000 mls @ 42 mls/hr 08/03/17 13:09 08/03/17 13:47 Sodium Chloride 0.9% IV Not Given .[id number] DAWIT Levothyroxine Sodium 25 mcg 07/25/17 06:30 08/03/17 06:57 Synthroid PO 25 mcg DAILY@0630 DAWIT Administration Metoprolol Tartrate 25 mg 07/26/17 10:30 07/30/17 18:16 Lopressor PO Not Given BID DAWIT Midodrine 5 mg 08/01/17 14:00 08/03/17 13:46 Proamatine PO 5 mg TID DAWIT Administration Multivitamins 1 tab 08/02/17 10:15 08/03/17 09:27 Hexavitamin PO 1 tab DAILY DAWIT Administration Paricalcitol 2 mcg 08/06/17 10:00 Zemplar IV TTS DAWIT Tamsulosin HCl 0.4 mg 07/25/17 10:00 08/03/17 13:45 Flomax PO 0.4 mg DAILY DAWIT Administration - Patient Studies Lab Studies: Microbiology Studies 07/30/17 09:54 Blood Culture - Preliminary Blood-Venous NO GROWTH AFTER 4 DAYS 07/30/17 09:54 Blood Culture - Preliminary Blood-Venous NO GROWTH AFTER 4 DAYS Lab Studies 08/03/17 08/03/17 08/03/17 Range/Units 11:36 11:34 11:34 WBC 13.3 H (4.8-10.8) K/uL RBC 3.18 L (4.40-5.90) Mil/uL Hgb 8.9 L (12.0-18.0) g/dL Hct 27.5 L (35.0-51.0) % MCV 86.6 (80.0-94.0) fL MCH 27.9 (27.0-31.0) pg MCHC 32.2 L (33.0-37.0) g/dL RDW 17.5 H (11.5-14.5) % Plt Count 149 (130-400) K/uL MPV 8.5 (7.2-11.7) fL Neut % (Auto) 82.7 H (50.0-75.0) % Lymph % (Auto) 11.6 L (20.0-40.0) % Benson % (Auto) 4.0 (0.0-10.0) % Eos % (Auto) 1.1 (0.0-4.0) % Baso % (Auto) 0.6 (0.0-2.0) % Neut # 11.0 H (1.8-7.0) K/uL Lymph # 1.5 (1.0-4.3) K/uL Benson # 0.5 (0.0-0.8) K/uL Eos # 0.1 (0.0-0.7) K/uL Baso # 0.1 (0.0-0.2) K/uL Sodium (132-148) mmol/L Potassium (3.6-5.2) mmol/L Chloride (98-107) mmol/L Carbon Dioxide (22-30) mmol/L Anion Gap (10-20) BUN (9-20) mg/dL Creatinine (0.8-1.5) mg/dL Est GFR ( Amer) Est GFR (Non-Af Amer) POC Glucose (mg/dL) 144 H (65-110) mg/dL Random Glucose (75-110) mg/dL Lactic Acid 1.3 (0.7-2.1) mmol/L Calcium (8.6-10.4) mg/dl Phosphorus (2.5-4.5) mg/dL Magnesium (1.6-2.3) mg/dL Total Bilirubin (0.2-1.3) mg/dL AST (17-59) U/L ALT (21-72) U/L Alkaline Phosphatase (38-126) U/L Total Protein (6.3-8.3) g/dL Albumin (3.5-5.0) g/dL Globulin (2.2-3.9) gm/dL Albumin/Globulin Ratio (1.0-2.1) Blood Type Antibody Screen 08/03/17 08/03/17 08/03/17 Range/Units 06:49 06:25 06:23 WBC 11.9 H (4.8-10.8) K/uL RBC 3.04 L (4.40-5.90) Mil/uL Hgb 8.6 L (12.0-18.0) g/dL Hct 26.8 L (35.0-51.0) % MCV 88.0 (80.0-94.0) fL MCH 28.4 (27.0-31.0) pg MCHC 32.3 L (33.0-37.0) g/dL RDW 16.9 H (11.5-14.5) % Plt Count 150 (130-400) K/uL MPV 8.9 (7.2-11.7) fL Neut % (Auto) 83.9 H (50.0-75.0) % Lymph % (Auto) 10.5 L (20.0-40.0) % Benson % (Auto) 4.0 (0.0-10.0) % Eos % (Auto) 1.0 (0.0-4.0) % Baso % (Auto) 0.6 (0.0-2.0) % Neut # 10.0 H (1.8-7.0) K/uL Lymph # 1.2 (1.0-4.3) K/uL Benson # 0.5 (0.0-0.8) K/uL Eos # 0.1 (0.0-0.7) K/uL Baso # 0.1 (0.0-0.2) K/uL Sodium 137 (132-148) mmol/L Potassium 3.6 (3.6-5.2) mmol/L Chloride 100 (98-107) mmol/L Carbon Dioxide 22 (22-30) mmol/L Anion Gap 18 (10-20) BUN 77 H (9-20) mg/dL Creatinine 3.9 H (0.8-1.5) mg/dL Est GFR ( Amer) 18 Est GFR (Non-Af Amer) 15 POC Glucose (mg/dL) 109 (65-110) mg/dL Random Glucose 104 (75-110) mg/dL Lactic Acid (0.7-2.1) mmol/L Calcium 6.9 L (8.6-10.4) mg/dl Phosphorus 6.0 H (2.5-4.5) mg/dL Magnesium 2.0 (1.6-2.3) mg/dL Total Bilirubin 1.2 (0.2-1.3) mg/dL AST 514 H D (17-59) U/L ALT 522 H (21-72) U/L Alkaline Phosphatase 166 H (38-126) U/L Total Protein 6.2 L (6.3-8.3) g/dL Albumin 2.5 L (3.5-5.0) g/dL Globulin 3.7 (2.2-3.9) gm/dL Albumin/Globulin Ratio 0.7 L (1.0-2.1) Blood Type Antibody Screen 08/03/17 08/02/17 08/02/17 Range/Units 00:00 17:56 16:55 WBC 11.9 H (4.8-10.8) K/uL RBC 2.62 L (4.40-5.90) Mil/uL Hgb 7.3 L (12.0-18.0) g/dL Hct 22.8 L (35.0-51.0) % MCV 86.9 (80.0-94.0) fL MCH 28.0 (27.0-31.0) pg MCHC 32.2 L (33.0-37.0) g/dL RDW 16.7 H (11.5-14.5) % Plt Count 170 (130-400) K/uL MPV 9.0 (7.2-11.7) fL Neut % (Auto) (50.0-75.0) % Lymph % (Auto) (20.0-40.0) % Benson % (Auto) (0.0-10.0) % Eos % (Auto) (0.0-4.0) % Baso % (Auto) (0.0-2.0) % Neut # (1.8-7.0) K/uL Lymph # (1.0-4.3) K/uL Benson # (0.0-0.8) K/uL Eos # (0.0-0.7) K/uL Baso # (0.0-0.2) K/uL Sodium (132-148) mmol/L Potassium (3.6-5.2) mmol/L Chloride (98-107) mmol/L Carbon Dioxide (22-30) mmol/L Anion Gap (10-20) BUN (9-20) mg/dL Creatinine (0.8-1.5) mg/dL Est GFR ( Amer) Est GFR (Non-Af Amer) POC Glucose (mg/dL) 124 H 95 (65-110) mg/dL Random Glucose (75-110) mg/dL Lactic Acid (0.7-2.1) mmol/L Calcium (8.6-10.4) mg/dl Phosphorus (2.5-4.5) mg/dL Magnesium (1.6-2.3) mg/dL Total Bilirubin (0.2-1.3) mg/dL AST (17-59) U/L ALT (21-72) U/L Alkaline Phosphatase (38-126) U/L Total Protein (6.3-8.3) g/dL Albumin (3.5-5.0) g/dL Globulin (2.2-3.9) gm/dL Albumin/Globulin Ratio (1.0-2.1) Blood Type Antibody Screen 07/31/17 Range/Units 12:18 WBC (4.8-10.8) K/uL RBC (4.40-5.90) Mil/uL Hgb (12.0-18.0) g/dL Hct (35.0-51.0) % MCV (80.0-94.0) fL MCH (27.0-31.0) pg MCHC (33.0-37.0) g/dL RDW (11.5-14.5) % Plt Count (130-400) K/uL MPV (7.2-11.7) fL Neut % (Auto) (50.0-75.0) % Lymph % (Auto) (20.0-40.0) % Benson % (Auto) (0.0-10.0) % Eos % (Auto) (0.0-4.0) % Baso % (Auto) (0.0-2.0) % Neut # (1.8-7.0) K/uL Lymph # (1.0-4.3) K/uL Benson # (0.0-0.8) K/uL Eos # (0.0-0.7) K/uL Baso # (0.0-0.2) K/uL Sodium (132-148) mmol/L Potassium (3.6-5.2) mmol/L Chloride (98-107) mmol/L Carbon Dioxide (22-30) mmol/L Anion Gap (10-20) BUN (9-20) mg/dL Creatinine (0.8-1.5) mg/dL Est GFR ( Amer) Est GFR (Non-Af Amer) POC Glucose (mg/dL) (65-110) mg/dL Random Glucose (75-110) mg/dL Lactic Acid (0.7-2.1) mmol/L Calcium (8.6-10.4) mg/dl Phosphorus (2.5-4.5) mg/dL Magnesium (1.6-2.3) mg/dL Total Bilirubin (0.2-1.3) mg/dL AST (17-59) U/L ALT (21-72) U/L Alkaline Phosphatase (38-126) U/L Total Protein (6.3-8.3) g/dL Albumin (3.5-5.0) g/dL Globulin (2.2-3.9) gm/dL Albumin/Globulin Ratio (1.0-2.1) Blood Type O POSITIVE Antibody Screen Negative Laboratory Results - last 24 hr 07/31/17 08/02/17 08/02/17 12:18 16:55 17:56 WBC 11.9 H RBC 2.62 L Hgb 7.3 L Hct 22.8 L MCV 86.9 MCH 28.0 MCHC 32.2 L RDW 16.7 H Plt Count 170 MPV 9.0 Neut % (Auto) Lymph % (Auto) Benson % (Auto) Eos % (Auto) Baso % (Auto) Neut # Lymph # Benson # Eos # Baso # Sodium Potassium Chloride Carbon Dioxide Anion Gap BUN Creatinine Est GFR ( Amer) Est GFR (Non-Af Amer) POC Glucose (mg/dL) 95 Random Glucose Lactic Acid Calcium Phosphorus Magnesium Total Bilirubin AST ALT Alkaline Phosphatase Total Protein Albumin Globulin Albumin/Globulin Ratio Blood Type O POSITIVE Antibody Screen Negative 08/03/17 08/03/1717 00:00 06:23 06:25 WBC 11.9 H RBC 3.04 L Hgb 8.6 L Hct 26.8 L MCV 88.0 MCH 28.4 MCHC 32.3 L RDW 16.9 H Plt Count 150 MPV 8.9 Neut % (Auto) 83.9 H Lymph % (Auto) 10.5 L Benson % (Auto) 4.0 Eos % (Auto) 1.0 Baso % (Auto) 0.6 Neut # 10.0 H Lymph # 1.2 Benson # 0.5 Eos # 0.1 Baso # 0.1 Sodium 137 Potassium 3.6 Chloride 100 Carbon Dioxide 22 Anion Gap 18 BUN 77 H Creatinine 3.9 H Est GFR ( Amer) 18 Est GFR (Non-Af Amer) 15 POC Glucose (mg/dL) 124 H Random Glucose 104 Lactic Acid Calcium 6.9 L Phosphorus 6.0 H Magnesium 2.0 Total Bilirubin 1.2 AST 514 H D ALT 522 H Alkaline Phosphatase 166 H Total Protein 6.2 L Albumin 2.5 L Globulin 3.7 Albumin/Globulin Ratio 0.7 L Blood Type Antibody Screen 08/03/17 08/03/17 08/03/17 06:49 11:34 11:34 WBC 13.3 H RBC 3.18 L Hgb 8.9 L Hct 27.5 L MCV 86.6 MCH 27.9 MCHC 32.2 L RDW 17.5 H Plt Count 149 MPV 8.5 Neut % (Auto) 82.7 H Lymph % (Auto) 11.6 L Benson % (Auto) 4.0 Eos % (Auto) 1.1 Baso % (Auto) 0.6 Neut # 11.0 H Lymph # 1.5 Benson # 0.5 Eos # 0.1 Baso # 0.1 Sodium Potassium Chloride Carbon Dioxide Anion Gap BUN Creatinine Est GFR ( Amer) Est GFR (Non-Af Amer) POC Glucose (mg/dL) 109 Random Glucose Lactic Acid 1.3 Calcium Phosphorus Magnesium Total Bilirubin AST ALT Alkaline Phosphatase Total Protein Albumin Globulin Albumin/Globulin Ratio Blood Type Antibody Screen 08/03/17 11:36 WBC RBC Hgb Hct MCV MCH MCHC RDW Plt Count MPV Neut % (Auto) Lymph % (Auto) Benson % (Auto) Eos % (Auto) Baso % (Auto) Neut # Lymph # Benson # Eos # Baso # Sodium Potassium Chloride Carbon Dioxide Anion Gap BUN Creatinine Est GFR ( Amer) Est GFR (Non-Af Amer) POC Glucose (mg/dL) 144 H Random Glucose Lactic Acid Calcium Phosphorus Magnesium Total Bilirubin AST ALT Alkaline Phosphatase Total Protein Albumin Globulin Albumin/Globulin Ratio Blood Type Antibody Screen Fingerstick Blood Sugar Results: 144 Critical Care Progress Note - Ventilator Checklist Daily Sedation Vacation: Yes - Extremities/Vascular Does the Patient have a Central Venous Catheter?: Yes (left femoral central line to be discontinued) Insertion Site: Femoral Vein Does the Patient need a Central Venous Catheter?: No Does the Patient have a Wise Catheter?: No Does the Patient need a Wise Catheter?: No - Prophylaxis GI Prophylaxis GI: PPI - Prophylaxis DVT Prophylaxis DVT: SCDs, Not Indicated - Nutrition Nutrition: NG tube feeds started Assessment/Plan - Assessment and Plan (Free Text) Assessment: 82 y/o M with PMHx of CAD, HTN, CKD, dementia and obstructive uropathy requiring wise admitted 07/24 with lethargy and fever from the [facility]. Patient was transferred to the ICU 07/30 and received a permacath 08/01 now POD # 2. -Neuro:dementia. more awake Cardio: hypotensive secondary to sepsis: resolved, hx of CHF, CAD - EKG (07/26): 1st degree AV block, right axis deviation, possible anterolateral subendocardial injury - Echo (08/01/16): LVEF 65-70%, left atrial dilation, LVH - Dr. Lynn Thrasher consulted, help appreciated -continue current medications, hold BP meds if SBP <110 -Pulm: possible pneumonia - Saturating 100% on 5L NC - CXR (07/30): similar to yesterday Nephro: acute on chronic kidney disease, obstructive uropathy, POD#1 s/p permacath - BUN/Cr (08/02): BUN 61/3.5, improved - Dr. Peterson consulted, help appreciated - Dr. Parada consulted, help appreciated - r internal jugular permacath placed by surgery 08/01 - ICU team advises to remove femoral TLC dialysis catheter - bladder scan q8hrs and d/c wise catheter GI: dysphagia, transaminitis - pureed diet - LFTs (08/02): Tbili 1.2 / AST 742 / ALT 631 / ALP 164 - swallow study performed, recommended NGT as patient is at risk for malnutrition and aspiration - hold hepatotoxic drugs - HBsAg, HBsAb, HBcAb, HCV Ab all negative (07/31) - Abd U/s (08/01):suggested acalculous cholecystitis, hepatic steatosis, no obstructive uropathy, no definite hydronephrosis -: BPH, urosepsis: resolved - Dr. Sparks consulted, help appreciated - flomax 0.4 mg PO daily - finasteride 5 mg PO daily Endo: hypothyroidism - levothyroxine 25mcg PO daily Hematology: anemia, leukocytosis likely secondary to sepsis - Hgb (08/02): 7.7, repeat CBC - Dr. Peterson recommends Epogen 10,000u 3x weekly ID: urosepsis, possible pneumonia - urine cx (07/24): final culture grew klebsiella pneumoniae and enterococcus faecalis, both sensitive to ciprofloxacin - Dr. Cantu consulted, help appreciated - de-escalate abx Derm: bilateral heel wounds - Wound care consulted - vitamin C 500 mg PO BID - Multivitamin 1 tab PO QD PPX: - DVT: SCDs - hold heparin - GI: pepcid 20mg IVP daily Patient remains hemodynamically stable. Before HD, SBP was near 90s; however during HD, patient;s BP did not decrease. -obain CT abd/pelvis to evaluate retroperitoneal bleeding site. -no ryan gi bleeding identified -continue to monitor
--- NOTE | 2017-08-03 17:26 | CT ---
PROCEDURE: CT Abdomen and Pelvis without intravenous contrast HISTORY: r/o retroperitoneal bleeding COMPARISON: None. TECHNIQUE: CT scan of the abdomen and pelvis was performed without administration of intravenous contrast. Oral contrast was not administered. Coronal and sagittal reformatted images were obtained. Radiation dose: Total exam DLP = 992.31 mGy-cm. This CT exam was performed using one or more of the following dose reduction techniques: Automated exposure control, adjustment of the mA and/or kV according to patient size, and/or use of iterative reconstruction technique. FINDINGS: LOWER THORAX: There are large bilateral pleural effusions and compressive atelectasis in the lower lobes. LIVER: Normal in size. No gross lesion or ductal dilatation. GALLBLADDER AND BILE DUCTS: No calcified gallstones. There is diffuse gallbladder wall edema and mild pericholecystic fluid which is likely secondary to systemic disease. . PANCREAS: Normal in size. No gross lesion or ductal dilatation. SPLEEN: Normal in size and appearance. ADRENALS: No discrete nodule. KIDNEYS AND URETERS: Normal in size. No hydronephrosis. No solid mass. VASCULATURE: There are advanced atherosclerotic aortoiliac calcifications. No aortic aneurysm. BOWEL: The nasogastric tube STIR minutes in the stomach. Evaluation of the bowel is limited in the absence of oral contrast. Allowing for this, there is apparent mild dilatation of fluid-filled small bowel. The colon is decompressed. There is fecal stasis in the rectum. APPENDIX: Unremarkable. Normal appendix. PERITONEUM: There is small amount of abdominal and pelvic ascites. No free air. LYMPH NODES: No enlarged lymph nodes. BLADDER: Grossly normal in appearance. REPRODUCTIVE: The prostate gland is normal in size. BONES: No acute fracture. Diffuse bone demineralization and multilevel degenerative disc disease. OTHER FINDINGS: There is diffuse anasarca. IMPRESSION: 1. No evidence of retroperitoneal hemorrhage. 2. Large bilateral pleural effusions, small abdominal and pelvic ascites. 3. Diffuse anasarca. 4. Evaluation of bowel is limited in the absence of oral contrast, allowing for this nonspecific mild dilatation of fluid-filled small bowel loops with
--- NOTE | 2017-08-03 23:36 | CP.PCM.PN ---
Subjective - Date & Time of Evaluation Date of Evaluation: 08/03/17 Time of Evaluation: 19:00 - Subjective Subjective: Pt seen and examined at bedside, pt is in ICU, NG tube is lace, kidney funcions improving, pt is more alert Objective - Vital Signs/Intake and Output Vital Signs (last 24 hours): Temp Pulse Resp BP Pulse Ox 97.2 F L 88 14 100/63 97 08/03/17 16:00 08/03/17 19:00 08/03/17 19:00 08/03/17 18:24 08/03/17 19:00 Intake and Output: 08/03/17 08/04/17 18:59 06:59 Intake Total 1493 92 Balance 1493 92 - Medications Medications: Current Medications Ascorbic Acid (Vitamin C 500 Mg Tab) 500 mg PO DAILY [facility] Last Admin: 08/03/17 09:27 Dose: 500 mg Aspirin (Ecotrin) 81 mg PO DAILY [facility] Last Admin: 08/03/17 09:27 Dose: 81 mg Clopidogrel Bisulfate (Plavix) 75 mg PO DAILY [facility] Last Admin: 08/03/17 09:27 Dose: 75 mg Epoetin Jacobo (Procrit) 10,000 unit SC TTS [facility] Famotidine (Pepcid) 20 mg PO DAILY [facility] Last Admin: 08/03/17 09:27 Dose: 20 mg Ferric Sodium Gluconate Complex (Ferrlecit) 125 mg IVPB TTS [facility] Stop: 08/14/17 10:01 Finasteride (Proscar) 5 mg PO DAILY [facility] Last Admin: 08/03/17 09:27 Dose: 5 mg Heparin Sodium (Porcine) (Heparin) 5,000 units SC Q12H [facility] Last Admin: 07/31/17 02:30 Dose: Not Given Hydralazine HCl (Apresoline) 25 mg PO BID [facility] Last Admin: 07/29/17 17:38 Dose: Not Given Ciprofloxacin (Cipro 200mg/100ml D5w) 100 mls @ 67 mls/hr IVPB Q12H [facility] Last Admin: 08/03/17 13:56 Dose: 67 mls/hr Metronidazole (Flagyl) 500 mg in 100 mls @ 100 mls/hr IVPB Q8 [facility] Last Admin: 08/03/17 22:43 Dose: 100 mls/hr Sodium Chloride (Sodium Chloride 0.9%) 1,000 mls @ 42 mls/hr IV .[id number] [facility] Last Admin: 08/03/17 13:47 Dose: Not Given Levothyroxine Sodium (Synthroid) 25 mcg PO DAILY@0630 [facility] Last Admin: 08/03/17 06:57 Dose: 25 mcg Metoprolol Tartrate (Lopressor) 25 mg PO BID [facility] Last Admin: 07/30/17 18:16 Dose: Not Given Midodrine (Proamatine) 5 mg PO TID [facility] Last Admin: 08/03/17 18:38 Dose: 5 mg Multivitamins (Hexavitamin) 1 tab PO DAILY [facility] Last Admin: 08/03/17 09:27 Dose: 1 tab Paricalcitol (Zemplar) 2 mcg IV TTS [facility] Tamsulosin HCl (Flomax) 0.4 mg PO DAILY [facility] Last Admin: 08/03/17 13:45 Dose: 0.4 mg - Labs Labs: 08/03/17 11:34 08/03/17 06:25 PT 16.0 SECONDS (9.7-12.2) H 07/30/17 12:16 INR 1.4 07/30/17 12:16 APTT 30 SECONDS (21-34) 07/30/17 08:54 - Constitutional Appears: No Acute Distress, Chronically Ill - Head Exam Head Exam: ATRAUMATIC, NORMAL INSPECTION, NORMOCEPHALIC - Eye Exam Eye Exam: EOMI, Normal appearance, PERRL Pupil Exam: NORMAL ACCOMODATION, PERRL - Respiratory Exam Respiratory Exam: Decreased Breath Sounds, Rales - Cardiovascular Exam Cardiovascular Exam: REGULAR RHYTHM, +S1, +S2. absent: Murmur - GI/Abdominal Exam GI & Abdominal Exam: Soft, Normal Bowel Sounds. absent: Tenderness Assessment and Plan (1) Fever Status: Acute (2) Leukocytosis Status: Acute (3) UTI (urinary tract infection) Status: Acute (4) Leg ulcer Status: Acute (5) Toxic metabolic encephalopathy Status: Acute
[2017-08-04] MEDS: Ciprofloxacin 200mg/100ml D5W 100 ML IVPB SCH ×2 (01:30→13:02)
--- NOTE | 2017-08-04 04:44 | PN ---
FOLLOWUP RENAL CONSULTATION DATE: LOCATION: The patient is located in ICU, bed 16. REQUESTED BY: Daniel Coyle MD REASON FOR FOLLOWUP: Acute renal failure on chronic kidney disease, sepsis and for further evaluation. SUBJECTIVE: Mr. Cunningham is an 82-year-old elderly, -Portuguese male with the past medical history significant for long standing hypertension, CHF, coronary artery disease status post CABG, chronic kidney disease, tophaceous gout, who was recently admitted to [facility] on 05/27/2017 and subsequently transferred to the custodial on 06/06/2017 and now the patient was admitted with decreased mentation and also the shortness of breath and patient recently treated for sepsis. The patient was also found to have worsening renal function, started on hemodialysis and also anemic. The patient was seen and examined during hemodialysis. Denies any shortness of breath. The patient is still confused. PHYSICAL EXAMINATION: VITAL SIGNS: This morning, blood pressure now 84/60, pulse 90, respirations 16, saturations 97% and temperature 97.9. GENERAL: Mr. Cunningham is an 82-year-old elderly, -Portuguese male, moderately built, moderately nourished, not in distress. HEENT: Pupils normal and reactive to light and accommodation. Conjunctivae pink. Sclerae anicteric. Tongue is moist and trachea is midline. LUNGS: Symmetrical on both sides. Bilateral breath sounds present. Occasional basal crackles present. CARDIOVASCULAR: Ronks at the fifth intercostal space, midclavicular line. S1 and S2 audible. No murmur or gallop. ABDOMEN: Normal in appearance, soft, tympanic. No guarding. No rigidity. No hepatosplenomegaly. CENTRAL NERVOUS SYSTEM: The patient is awake, following simple commands, mostly confused. EXTREMITIES: No cyanosis, no clubbing, no edema. CURRENT MEDICATIONS: Include as follows: Hydralazine on hold, ciprofloxacin 200 mg IV q.12 hours, aspirin 81 mg daily, Ferrlecit 125 mg IV 3 times a week, Flagyl 500 mg IV q.8 hours, Flomax 0.4 mg daily, subcutaneous heparin on hold, multivitamin 1 tablet daily, metoprolol is on hold, Pepcid 200 mg p.o. daily, Plavix 75 mg daily, midodrine 5 mg p.o. t.i.d., Epogen 10,000 units 3 times a week, Proscar 5 mg p.o. daily, IV fluid normal saline at 40 mL per hour, Synthroid 25 mcg daily, vitamin C 500 mg daily,zemplar 2 mcg ivp 3 times a week. LABORATORY DATA: Include as follows, as of 08/03/2017, WBC 13.3, hemoglobin 8.9, hematocrit is 27.5, platelets 149. Sodium 137, potassium 3.6, chloride 100, CO2 of 22, BUN 77, creatinine 3.9, glucose 104, calcium 6.99, phosphorus 6.0, magnesium 2.0, total bilirubin 1.2, AST 514, ALT 522, alkaline phosphatase 166, total protein 6.2, albumin is 2.5, corrected calcium is about 8.1 to 8.5. His blood culture as of 07/30/2017 was negative day 4 and as of 07/24/2017 urine culture positive for Klebsiella pneumoniae and Enterococcus faecalis. Chest x-ray as of 08/03/2017, worsening air-space disease in the right middle lung and lower lob which could represent aspiration pneumonia in the appropriate clinical setting. Followup was advised and persistent moderate cardiomegaly, pleural effusions large on the right. CT of the abdomen and pelvis as of 08/03/2017, impression: No evidence of retroperitoneal hemorrhage and there is a diffuse anasarca, normal in size of kidney, no hydronephrosis, no solid mass, large bilateral pleural effusion, small abdominal and pelvic ascites, diffuse anasarca and evaluation of bowel is limited in the abscess of oral contrast allowing for this nonspecific mild dilatation of the fluid filled small bowel loops. ASSESSMENT: In summary, Mr. Cunningham is an 82-year-old elderly, -Portuguese male with the past medical history significant for long standing hypertension, coronary artery disease status post coronary artery bypass graft, gout, congestive heart failure, who was recently sent to the custodial for rehabilitation. Now the patient was admitted with shortness of breath and altered mental status and found to have urosepsis with worsening renal function, low H and H with cord sepsis and subsequently the patient was transferred to ICU and with worsening renal function, started on hemodialysis status post left Rufus catheter and also right intrajugular Perm-A-Cath, being dialyzed. 1. Renal failure, [id number] kidney disease stage 4 versus progression of the chronic kidney disease to end-stage renal disease cannot be ruled out. 2. Anemia secondary to renal failure, rule out gastrointestinal blood loss. 3. Pleural effusion. 4. Pneumonia. 5. Abnormal LFTs, most likely secondary to shock liver secondary to hypotension and secondary to sepsis. No US during analysis today. PLAN: Continue hemodialysis 3 times a week, Saturday, , Saturday and continue IV antibiotics as per ID recommendations and transfuse as needed and discuss with dress operator, Dr. Veronica Henson, left femoral catheter can be discontinued, no need for the dialysis and the patient has a Perm-A-Cath. If the patient need access, consider the Medline or PICC line as per ICU recommendations. We will follow up with you. Thank you for allowing me to participate in your patient's care. Hernan Peterson MD MTDD
[2017-08-04] MEDS: metroNIDAZOLE IV 500 mg/100 ml 500 MG/100 ML BAG IVPB SCH ×3 (05:40→21:45)
[2017-08-04] MEDS: Sodium Chloride 0.9% 1,000 ML IV SCH ×2 (05:45→17:53)
[2017-08-04 06:43] LABS: BASO % 0.3 % (0.0-2.0); EOS # 0.1 K/uL (0.0-0.7); EOS % 1.1 % (0.0-4.0); HEMATOCRIT 27.7 % (35.0-51.0); LYMPH % 15.6 % (20.0-40.0); MEAN CORPUSCULAR HEMOGLOBIN 28.5 pg (27.0-31.0); MEAN CORPUSCULAR HGB CONC 32.4 g/dL (33.0-37.0); MEAN PLATELET VOLUME 8.9 fL (7.2-11.7); MONO # 0.5 K/uL (0.0-0.8); MONO % 4.1 % (0.0-10.0); NRBC % 0.2 % (0.0-2.0); RED CELL DISTRIBUTION WIDTH 17.5 % (11.5-14.5); WHITE BLOOD COUNT 12.8 K/uL (4.8-10.8)
[2017-08-04 06:59] LABS: POTASSIUM 3.4 mmol/L (3.6-5.2)
[2017-08-04 07:01] LABS: BILIRUBIN,TOTAL 1.1 mg/dL (0.2-1.3)
[2017-08-04 07:02] LABS: ALB/GLOB RATIO 0.7 (1.0-2.1); PHOSPHOROUS 4.3 mg/dL (2.5-4.5); TOTAL PROTEIN 6.4 g/dL (6.3-8.3)
[2017-08-04] MEDS: Levothyroxine 25 MCG TAB PO SCH (07:02)
[2017-08-04 07:03] LABS: CALCIUM 6.9 mg/dl (8.6-10.4); MAGNESIUM 1.9 mg/dL (1.6-2.3)
--- NOTE | 2017-08-04 09:18 | RAD ---
PROCEDURE: CHEST RADIOGRAPH, 1 VIEW HISTORY: lobar pneumonia COMPARISON: 08/03/2017 FINDINGS: The right-sided dialysis catheter terminates in the right atrium. LUNGS: There has been no significant interval change in consolidation in the right lung. There is pulmonary venous congestion in both lungs. PLEURA: No pneumothorax. No change in bilateral pleural effusions, larger on the right CARDIOVASCULAR: There is persistent moderate cardiomegaly. Status post CABG. OSSEOUS STRUCTURES: No significant abnormalities. VISUALIZED UPPER ABDOMEN: Normal. OTHER FINDINGS: None. IMPRESSION: No change in consolidation versus pulmonary edema in the right lung. Persistent pleural effusions, larger on the right. Persistent cardiomegaly and pulmonary venous congestion.
[2017-08-04] MEDS: Multiple Vitamins Tab PO SCH (13:02)
--- NOTE | 2017-08-04 14:29 | CP.PCM.PCO ---
Physician Communication Note - Physician Communication Note Physician Communication Note: Planning to remove L femoral cath tomorrow
--- NOTE | 2017-08-04 14:49 | CP.PCM.PN ---
Subjective - Date & Time of Evaluation Date of Evaluation: 08/04/17 Time of Evaluation: 14:40 - Subjective Subjective: No events, patient awake, pleasantly confused, in no distress. D/w Radiologist Dr. Bateman it could not be confirmed if the tip of HD cath form left groin in pushing vein wall if or outside, d/w surg as well, will hold on removal today but may need venogram to confirm the position of the tip prior to removal. Objective - Vital Signs/Intake and Output Vital Signs (last 24 hours): Temp Pulse Resp BP Pulse Ox 97.6 F 92 H 14 99/50 L 98 08/04/17 12:00 08/04/17 14:24 08/04/17 14:24 08/04/17 14:24 08/04/17 14:24 Intake and Output: 08/04/17 08/04/17 06:59 18:59 Intake Total 1338 932 Balance 1338 932 - Medications Medications: Current Medications Ascorbic Acid (Vitamin C 500 Mg Tab) 500 mg PO DAILY [facility] Last Admin: 08/04/17 09:52 Dose: 500 mg Aspirin (Ecotrin) 81 mg PO DAILY [facility] Last Admin: 08/04/17 09:51 Dose: 81 mg Clopidogrel Bisulfate (Plavix) 75 mg PO DAILY [facility] Last Admin: 08/04/17 09:54 Dose: 75 mg Epoetin Jacobo (Procrit) 10,000 unit SC TTS [facility] Famotidine (Pepcid) 20 mg PO DAILY [facility] Last Admin: 08/04/17 09:54 Dose: 20 mg Ferric Sodium Gluconate Complex (Ferrlecit) 125 mg IVPB TTS [facility] Stop: 08/14/17 10:01 Finasteride (Proscar) 5 mg PO DAILY [facility] Last Admin: 08/04/17 09:54 Dose: 5 mg Heparin Sodium (Porcine) (Heparin) 5,000 units SC Q12H [facility] Last Admin: 07/31/17 02:30 Dose: Not Given Hydralazine HCl (Apresoline) 25 mg PO BID [facility] Last Admin: 07/29/17 17:38 Dose: Not Given Ciprofloxacin (Cipro 200mg/100ml D5w) 100 mls @ 67 mls/hr IVPB Q12H [facility] Last Admin: 08/04/17 13:02 Dose: 67 mls/hr Metronidazole (Flagyl) 500 mg in 100 mls @ 100 mls/hr IVPB Q8 [facility] Last Admin: 08/04/17 14:27 Dose: 100 mls/hr Sodium Chloride (Sodium Chloride 0.9%) 1,000 mls @ 42 mls/hr IV .[id number] [facility] Last Admin: 08/04/17 05:45 Dose: 42 mls/hr Levothyroxine Sodium (Synthroid) 25 mcg PO DAILY@0630 [facility] Last Admin: 08/04/17 07:02 Dose: 25 mcg Metoprolol Tartrate (Lopressor) 25 mg PO BID [facility] Last Admin: 07/30/17 18:16 Dose: Not Given Midodrine (Proamatine) 5 mg PO TID [facility] Last Admin: 08/04/17 14:27 Dose: 5 mg Multivitamins (Hexavitamin) 1 tab PO DAILY [facility] Last Admin: 08/04/17 13:02 Dose: 1 tab Paricalcitol (Zemplar) 2 mcg IV TTS [facility] Tamsulosin HCl (Flomax) 0.4 mg PO DAILY [facility] Last Admin: 08/04/17 09:56 Dose: 0.4 mg - Labs Labs: 08/04/17 06:35 08/04/17 06:35 PT 16.0 SECONDS (9.7-12.2) H 07/30/17 12:16 INR 1.4 07/30/17 12:16 APTT 30 SECONDS (21-34) 07/30/17 08:54 - Additional Findings Additional findings: * HEENT DIMITRIOS * Neck Supple * CVS regular no gallop or rub * Chest scar of the prior bypass, hd cath on right * PA soft, left groin cath, allowing blood draw from the brown port * Ext no edema * CORRECTIONAL CORPORAL awake not well oriented, pleasantly confused. * skin normal turgor. Assessment and Plan - Assessment and Plan (Free Text) Assessment: * failure to thrive from uremia, dementia, poor intake * Acute on chronic renal failure on hd TTS, permacath * H/o CAD CABG * Kleb uti on cipro * B/l pl effusion and atelectesis * Dementia * Concern about left femoral cath tip pressing against vein wall vs outside, surgery team following, may check with venogram. * GI/DVT prophylaxis * See orders for detail.
--- NOTE | 2017-08-04 16:29 | CP.PCM.PN ---
Subjective - Date & Time of Evaluation Date of Evaluation: 08/04/17 Time of Evaluation: 09:00 - Subjective Subjective: events noted iv rx in progress Objective - Vital Signs/Intake and Output Vital Signs (last 24 hours): Temp Pulse Resp BP Pulse Ox 98.1 F 92 H 16 93/49 L 100 08/04/17 16:00 08/04/17 16:00 08/04/17 16:00 08/04/17 15:24 08/04/17 16:00 Intake and Output: 08/04/17 08/04/17 06:59 18:59 Intake Total 1338 1136 Balance 1338 1136 - Medications Medications: Current Medications Ascorbic Acid (Vitamin C 500 Mg Tab) 500 mg PO DAILY [facility] Last Admin: 08/04/17 09:52 Dose: 500 mg Aspirin (Ecotrin) 81 mg PO DAILY [facility] Last Admin: 08/04/17 09:51 Dose: 81 mg Clopidogrel Bisulfate (Plavix) 75 mg PO DAILY [facility] Last Admin: 08/04/17 09:54 Dose: 75 mg Epoetin Jacobo (Procrit) 10,000 unit SC TTS [facility] Famotidine (Pepcid) 20 mg PO DAILY [facility] Last Admin: 08/04/17 09:54 Dose: 20 mg Ferric Sodium Gluconate Complex (Ferrlecit) 125 mg IVPB TTS [facility] Stop: 08/14/17 10:01 Finasteride (Proscar) 5 mg PO DAILY [facility] Last Admin: 08/04/17 09:54 Dose: 5 mg Heparin Sodium (Porcine) (Heparin) 5,000 units SC Q12H [facility] Last Admin: 07/31/17 02:30 Dose: Not Given Hydralazine HCl (Apresoline) 25 mg PO BID [facility] Last Admin: 07/29/17 17:38 Dose: Not Given Ciprofloxacin (Cipro 200mg/100ml D5w) 100 mls @ 67 mls/hr IVPB Q12H [facility] Last Admin: 08/04/17 13:02 Dose: 67 mls/hr Metronidazole (Flagyl) 500 mg in 100 mls @ 100 mls/hr IVPB Q8 [facility] Last Admin: 08/04/17 14:27 Dose: 100 mls/hr Sodium Chloride (Sodium Chloride 0.9%) 1,000 mls @ 42 mls/hr IV .[id number] [facility] Last Admin: 08/04/17 05:45 Dose: 42 mls/hr Levothyroxine Sodium (Synthroid) 25 mcg PO DAILY@0630 [facility] Last Admin: 08/04/17 07:02 Dose: 25 mcg Metoprolol Tartrate (Lopressor) 25 mg PO BID [facility] Last Admin: 07/30/17 18:16 Dose: Not Given Midodrine (Proamatine) 5 mg PO TID [facility] Last Admin: 08/04/17 14:27 Dose: 5 mg Multivitamins (Hexavitamin) 1 tab PO DAILY [facility] Last Admin: 08/04/17 13:02 Dose: 1 tab Paricalcitol (Zemplar) 2 mcg IV TTS [facility] Tamsulosin HCl (Flomax) 0.4 mg PO DAILY [facility] Last Admin: 08/04/17 09:56 Dose: 0.4 mg - Labs Labs: 08/04/17 06:35 08/04/17 06:35 PT 16.0 SECONDS (9.7-12.2) H 07/30/17 12:16 INR 1.4 07/30/17 12:16 APTT 30 SECONDS (21-34) 07/30/17 08:54 - Constitutional Appears: Non-toxic, Confused, Chronically Ill - Head Exam Head Exam: NORMOCEPHALIC - Eye Exam Eye Exam: PERRL. absent: Scleral icterus - ENT Exam ENT Exam: Mucous Membranes Dry, Normal External Ear Exam - Neck Exam Neck Exam: absent: Lymphadenopathy - Respiratory Exam Respiratory Exam: Decreased Breath Sounds, Clear to Ausculation Bilateral - Cardiovascular Exam Cardiovascular Exam: REGULAR RHYTHM, +S1, +S2 - GI/Abdominal Exam GI & Abdominal Exam: Distended, Soft. absent: Tenderness - Rectal Exam Rectal Exam: Deferred - Exam Exam: NORMAL INSPECTION - Extremities Exam Extremities Exam: Pedal Edema. absent: Tenderness - Back Exam Back Exam: absent: CVA tenderness (L), paraspinal tenderness - Neurological Exam Neurological Exam: Alert, Altered, CN II-XII Intact - Psychiatric Exam Psychiatric exam: Depressed - Skin Skin Exam: Dry Assessment and Plan (1) Fever Status: Acute (2) Leukocytosis Status: Acute (3) UTI (urinary tract infection) Status: Acute (4) Acute renal failure Status: Acute (5) Generalized weakness Status: Acute (6) Hyperkalemia Status: Acute (7) Troponin level elevated Status: Acute (8) UTI (urinary tract infection) due to Enterococcus Status: Acute (9) UTI (urinary tract infection) due to Enterococcus Status: Acute (10) UTI due to Klebsiella species Status: Acute (11) UTI due to Klebsiella species Status: Acute
--- NOTE | 2017-08-04 23:42 | CP.PCM.PN ---
Subjective - Date & Time of Evaluation Date of Evaluation: 08/04/17 Time of Evaluation: 17:00 - Subjective Subjective: Pt seen and evaluated by me at bedside, charts and meds reviewed, was also seen by IR and vascular surgery Objective - Vital Signs/Intake and Output Vital Signs (last 24 hours): Temp Pulse Resp BP Pulse Ox 98.1 F 91 H 14 105/62 98 08/04/17 20:00 08/04/17 20:00 08/04/17 20:00 08/04/17 20:00 08/04/17 20:00 Intake and Output: 08/04/17 08/05/17 18:59 06:59 Intake Total 1340 306 Output Total 0 Balance 1340 306 - Medications Medications: Current Medications Ascorbic Acid (Vitamin C 500 Mg Tab) 500 mg PO DAILY [facility] Last Admin: 08/04/17 09:52 Dose: 500 mg Aspirin (Ecotrin) 81 mg PO DAILY [facility] Last Admin: 08/04/17 09:51 Dose: 81 mg Clopidogrel Bisulfate (Plavix) 75 mg PO DAILY [facility] Last Admin: 08/04/17 09:54 Dose: 75 mg Epoetin Jacobo (Procrit) 10,000 unit SC TTS [facility] Famotidine (Pepcid) 20 mg PO DAILY [facility] Last Admin: 08/04/17 09:54 Dose: 20 mg Ferric Sodium Gluconate Complex (Ferrlecit) 125 mg IVPB TTS [facility] Stop: 08/14/17 10:01 Finasteride (Proscar) 5 mg PO DAILY [facility] Last Admin: 08/04/17 09:54 Dose: 5 mg Heparin Sodium (Porcine) (Heparin) 5,000 units SC Q12H [facility] Last Admin: 07/31/17 02:30 Dose: Not Given Hydralazine HCl (Apresoline) 25 mg PO BID [facility] Last Admin: 07/29/17 17:38 Dose: Not Given Ciprofloxacin (Cipro 200mg/100ml D5w) 100 mls @ 67 mls/hr IVPB Q12H [facility] Last Admin: 08/04/17 13:02 Dose: 67 mls/hr Metronidazole (Flagyl) 500 mg in 100 mls @ 100 mls/hr IVPB Q8 [facility] Last Admin: 08/04/17 21:45 Dose: 100 mls/hr Sodium Chloride (Sodium Chloride 0.9%) 1,000 mls @ 42 mls/hr IV .[id number] [facility] Last Admin: 08/04/17 17:53 Dose: Not Given Levothyroxine Sodium (Synthroid) 25 mcg PO DAILY@0630 [facility] Last Admin: 08/04/17 07:02 Dose: 25 mcg Metoprolol Tartrate (Lopressor) 25 mg PO BID [facility] Last Admin: 07/30/17 18:16 Dose: Not Given Midodrine (Proamatine) 5 mg PO TID [facility] Last Admin: 08/04/17 17:53 Dose: 5 mg Multivitamins (Hexavitamin) 1 tab PO DAILY [facility] Last Admin: 08/04/17 13:02 Dose: 1 tab Paricalcitol (Zemplar) 2 mcg IV TTS [facility] Tamsulosin HCl (Flomax) 0.4 mg PO DAILY [facility] Last Admin: 08/04/17 09:56 Dose: 0.4 mg - Labs Labs: 08/04/17 06:35 08/04/17 06:35 PT 16.0 SECONDS (9.7-12.2) H 07/30/17 12:16 INR 1.4 07/30/17 12:16 APTT 30 SECONDS (21-34) 07/30/17 08:54 Assessment and Plan (1) Fever Status: Acute (2) Leukocytosis Status: Acute (3) UTI (urinary tract infection) Status: Acute (4) Leg ulcer Status: Acute (5) Toxic metabolic encephalopathy Status: Acute
[2017-08-05] MEDS: Ciprofloxacin 200mg/100ml D5W 100 ML IVPB SCH ×2 (01:30→13:49)
[2017-08-05] MEDS: metroNIDAZOLE IV 500 mg/100 ml 500 MG/100 ML BAG IVPB SCH ×3 (06:00→21:20)
[2017-08-05] MEDS: Levothyroxine 25 MCG TAB PO SCH (06:14)
[2017-08-05 06:28] LABS: BASO # 0.1 K/uL (0.0-0.2); BASO % 0.5 % (0.0-2.0); EOS # 0.1 K/uL (0.0-0.7); EOS % 0.7 % (0.0-4.0); HEMATOCRIT 27.5 % (35.0-51.0); LYMPH # 1.8 K/uL (1.0-4.3); LYMPH % 12.6 % (20.0-40.0); MEAN CELL VOLUME 87.7 fL (80.0-94.0); MEAN CORPUSCULAR HGB CONC 31.9 g/dL (33.0-37.0); MEAN PLATELET VOLUME 8.7 fL (7.2-11.7); MONO # 0.6 K/uL (0.0-0.8); MONO % 4.1 % (0.0-10.0); NRBC % 0.2 % (0.0-2.0); RED CELL DISTRIBUTION WIDTH 17.5 % (11.5-14.5)
--- NOTE | 2017-08-05 06:31 | CON ---
DATE: 08/01/[address] Pardo to Dr. Daniel Coyle. I was called for GI consultation by the admitting MD. The patient is seen and fully examined on 08/01/2017 in the presence of the intensive care staff. The entire chart is reviewed including, but not limited to the most recent lab and radiology study results, current and previous medication list, current and previous medical events, allergy to medication list as well as all the available current and previous medical records. HISTORY OF PRESENT ILLNESS: This is an 82-year-old male who was admitted to the hospital through the emergency room from a group home after being lethargic with unexplained fever with change of mental status, with shortness of breath, generalized weakness and malaise. After being admitted to the hospital, the patient was found to have leukocytosis of 12.0 with hemoglobin 9.9, hematocrit 31.4, with subsequent drop of hemoglobin and hematocrit mildly with increased BUN to 89 and creatinine 3.7, increased blood glucose level of 129. Chest x-ray was negative for any infiltrate as primary report indicated. Urinalysis was indicative of possible early stage urinary tract infection with possible urosepsis. PAST MEDICAL HISTORY: Including mainly but not limited to: 1. Osteoarthritis. 2. Hypertension. 3. Peptic ulcer disease. 4. Diabetes mellitus. 5. Status post left foot skin extraction recently with an open wound. FAMILY HISTORY: Unknown. SOCIAL HISTORY: No known history of cigarette smoking or alcohol intake. The patient is a resident of a group home. CURRENT MEDICATIONS: Medication list was reviewed. ALLERGIES TO MEDICATION: UNKNOWN. PHYSICAL EXAMINATION: GENERAL: An 82-year-old male who appears to be somewhat lethargic with a known history of dementia, all the information was obtained from medical record, medical staffs as well as old group home records. VITAL SIGNS: With low-grade temperature of 100.1, pulse of 104 with blood pressure of 140/66. HEENT: Showed pale dry oral mucous membrane. Nonicteric sclerae. LUNGS: Few scattered crepitation, decreased air entry at bases. HEART: Positive S1 and S2 with increased rate. ABDOMEN: Soft with slight distention with hypoactive bowel sounds. No mass or organomegaly. No rebound tenderness or guarding. EXTREMITIES: With slight lower extremity edematous changes. No clubbing or cyanosis. NEUROLOGIC: No reported new neurological deficits, sensory or motor. IMPRESSION: 1. Poor oral intake, failure to thrive, malnutrition. 2. Early stage of septicemia with possible urosepsis. 3. Known history of, but not limited to hypertension, gouty arthritis with osteoarthritis. 4. The patient is a candidate for percutaneous endoscopic gastrostomy insertion when he is more stable clinically. SUGGESTIONS: 1. Agree with your plan. 2. Peripheral hyperalimentation. 3. Control any underlying infectious process. 4. Cancer markers including CEA and PSA. 5. Blood transfusion as needed to keep hemoglobin at 10 gram percent due to the patient's subsequent drop of hemoglobin and hematocrit. 6. Further recommendation to follow. Thank you for letting me participate in your patient's care management. Case discussed at length with Dr. Coyle. Katia Pardo MD cc: Katia Pardo MD Patient chart
[2017-08-05 06:35] LABS: POTASSIUM 3.3 mmol/L (3.6-5.2)
[2017-08-05 06:38] LABS: ALB/GLOB RATIO 0.7 (1.0-2.1); BILIRUBIN,TOTAL 0.9 mg/dL (0.2-1.3); TOTAL PROTEIN 6.1 g/dL (6.3-8.3)
[2017-08-05 06:39] LABS: CALCIUM 7.1 mg/dl (8.6-10.4); PHOSPHOROUS 4.4 mg/dL (2.5-4.5)
--- NOTE | 2017-08-05 09:11 | RAD ---
PROCEDURE: Intraoperative Fluoroscopy. HISTORY: RENAL FAILURE FINDINGS: Fluoroscopic assistance was provided for right central venous catheter placement. Please refer to the operative report from
--- NOTE | 2017-08-05 09:51 | PN ---
DATE: FOLLOWUP RENAL CONSULTATION LOCATION: The patient is located in ICU, bed 16. REQUESTED BY: Daniel Coyle MD REASON FOR RENAL CONSULTATION: Acute renal failure on chronic kidney disease, on hemodialysis. SUBJECTIVE: Mr. Cunningham is an 82-year-old elderly male with past medical history significant for hypertension, CHF, coronary artery disease, status post CABG, gout, chronic kidney disease, CHF, who was recently discharged to the halfway. From there, the patient was admitted with altered mental status and shortness of breath and found to have urosepsis and status post code sepsis and transferred to ICU with worsening renal function and hypotension. The patient is off Levophed. The patient is following simple commands, not in acute distress. PHYSICAL EXAMINATION: VITAL SIGNS: The patient was seen this morning and his vital signs are as follows: Blood pressure 100/55, pulse 90, respirations 15, temperature 98.1, saturation 100%. Height 6 feet 3 inches and weight is 176 pounds. GENERAL: Mr. Cunningham is an 82-year-old elderly male, moderately built and moderately nourished, not in acute distress. HEENT: Pupils are normal and reactive to light and accommodation. Conjunctivae are pink. Sclerae are anicteric. Tongue is moist. Trachea is midline. LUNGS: Symmetric on both sides. Bilateral breath sounds present. Clear on auscultation. CARDIOVASCULAR SYSTEM: Reading at the fifth intercostal space, midclavicular line. S1 and S2 audible. No murmur or gallop. ABDOMEN: Normal in appearance, soft, tympanic. No guarding. No rigidity. No hepatosplenomegaly. CENTRAL NERVOUS SYSTEM: The patient is alert, awake, oriented x1 to 2. EXTREMITIES: No cyanosis. No clubbing. No edema. INTAKE AND OUTPUT: His I's and O's; intake is 1828 and output is 370. CURRENT MEDICATIONS: Include as follows: Hydralazine on hold and Cipro 200 mg IV q.12 hours, aspirin 81 mg daily, Flagyl 500 mg q.8 hours, Flomax 0.4 mg daily, SubQ heparin 5000 q.12 hours, multivitamin, metoprolol, famotidine, Plavix 75 mg, midodrine 5 mg p.o. t.i.d., Proscar 5 mg daily, and IV fluids 70 mL per hour, levothyroxine 25 mcg daily, and ascorbic acid, and Zetia. LABORATORY DATA: His laboratory data includes as follows; as of 08/02/2017, WBC 11.9, hemoglobin 7.3, hematocrit is 22.8, platelets 170. Sodium is 138, potassium 3.7, chloride 99, CO2 of 22, BUN 61, creatinine 3.5, and glucose 77, and calcium 6.9, phosphorus 4.9, magnesium is 2, total bilirubin 1.2, AST 742, and ALT 631, alkaline phosphatase 164, and total protein 6.2, albumin 2.6. ASSESSMENT: In summary, Mr. Cunningham is an 82-year-old elderly male with a history of longstanding hypertension, chronic kidney disease, congestive heart failure, coronary artery disease, status post coronary artery bypass graft; gout, BPH, was admitted with shortness of breath, altered mental status, and being treated for urosepsis and questionable pneumonia with increased BUN and creatinine and started on hemodialysis. 1. Renal failure, acute on chronic kidney disease, stage IV. 2. Urosepsis. 3. Anemia. 4. Hypotension, secondary to sepsis. 5. Coronary artery disease. PLAN: Continue hemodialysis 3 times a week. We will do next hemodialysis in a.m. and consider to transfuse 2 units of packed RBC during dialysis due to low H and H and coronary artery disease. We will follow with you. Thank you for allowing me to participate in your patient's care. Hernan Peterson MD
--- NOTE | 2017-08-05 09:59 | PN ---
DATE: LOCATION: ICU 16. SUBJECTIVE: This is an 82-year-old male seen and examined in rounds without significant clinical changes or reported active bleeding. The entire chart is reviewed including, but not limited to the most recent laboratory and radiology study results, current and the previous medications list, current and the previous medical events. The patient appeared to be, however, lethargic and the case discussed with the staff in Intensive Care Unit. Today's labs showed white blood cells of 12.8, hemoglobin is low at 9.0, hematocrit low at 27.7, with normal platelet count, but low potassium of 3.4 with BUN of 55, high with increased creatinine to 3.2, with low calcium 6.9. AST went down to 211 with ALT to 382 with elevated alkaline phosphatase 183. Total bilirubin reported to be normal, but low albumin to 2.6. PHYSICAL EXAMINATION: GENERAL: An 82-year-old male, slightly lethargic. VITAL SIGNS: Afebrile with pulse of 92, respiratory rate of 20-22, blood pressure of 106/64. HEENT: Showed pale dry oral mucoid membranes, nonicteric sclerae. LUNGS: Few scattered crepitations and decreased air entry at bases. HEART: Positive S1 and S2 with increased rate. ABDOMEN: Soft with slight generalized tenderness. No mass or organomegaly. No rebound tenderness or guarding. EXTREMITIES: With lower extremity ulceration covered with clean dressing with mild lower extremity edematous changes. No clubbing or cyanosis. NEUROLOGIC: No new reported neurological deficits sensory or motor. It has to be mentioned that the most recent CAT scan of the abdomen and pelvis done yesterday, report is seen indicative of large bilateral pleural effusion with small abdominal and pelvic ascites as well as diffuse anasarca, but no absence of retroperitoneal hemorrhage. IMPRESSION: 1. Malnutrition with hypoalbuminemia and hyperlipidemia with poor oral intake. 2. Abnormal liver function test most likely secondary to right side failure as well as infectious process including urinary tract infection with possible urosepsis and associate with leukocytosis. 3. Aspiration pneumonia with pleural effusion bilaterally. 4. Acute renal failure. 5. Elevated troponin level with possible early stage of myocardial infarction. 6. Known history of osteoarthritis, gouty arthritis, and hypertension, but with periods of hypotension. SUGGESTIONS: 1. Agree with your plan. 2. Thoracocentesis. 3. Treat underlying infectious process including his urinary tract infection as well as lower extremity ulceration. 4. Cancer markers including CEA and alpha-fetoprotein as well as PSA. 5. Due to the patient's very poor oral intake, PEG insertion has to be kept in the mind when the patient is more stable clinically. Thank you for letting me to participate in your patient's case management. Further recommendation to follow. Katia Pardo MD
--- NOTE | 2017-08-05 10:16 | PN ---
DATE: 07/29/2017 SUBJECTIVE: The patient was seen on 07/29. The patient has Corley catheter. He is on dialysis. He was on oxygen mask. The plan when I talked to his primary, that is, we are possibly doing cystoscopy as a follow up. PLAN: Follow up to determine his condition before the cystoscopy. Yobani Sparks MD
[2017-08-05] MEDS: Multiple Vitamins Tab PO SCH (10:46)
--- NOTE | 2017-08-05 11:30 | CP.CCUPN ---
<Leora Wen - Last Filed: 08/05/17 11:27> CCU Subjective - Physician Review Subjective (Free Text): Patient seen and examined at bedside. Patient is lethargic, responsive to name but unable to follow commands. Patient states he is in [place] when asked where he is, but unable to say he is in the hospital. ROS unobtainable at this time due to clinical condition. CCU Objective - Vital Signs / Intake & Output Vital Signs (Last 4 hours): Vital Signs Temp Pulse Resp BP Pulse Ox 08/05/17 09:00 93 H 18 97 08/05/17 08:24 96 H 18 102/57 L 98 08/05/17 08:00 97.5 F L 95 H 18 98 Intake and Output (Last 8hrs): Intake & Output 08/04/17 08/05/17 08/05/17 22:59 06:59 14:59 Intake Total 816 982 356 Output Total 0 0 0 Balance 816 982 356 Weight 176 lb Intake: Intake, IV Amount 336 452 126 Right Wrist 336 452 126 Oral 50 Tube Feeding 480 480 180 Other 50 Output: Urine 0 0 0 Urethral (Wise) 0 Urine, Voided 0 0 0 Other: # Voids Urine, Voided 0 # Bowel Movements 0 - Physical Exam Head: Positive for: Atraumatic, Normocephalic, Other Extroacular Muscles: Positive for: EOMI Mouth: Positive for: Moist Mucous Membranes Neck: Positive for: Other Respiratory/Chest: Positive for: Good Air Exchange, Rhonchi. Negative for: Accessory Muscle Use Abdomen: Negative for: Tenderness, Distention Lower Extremity: Positive for: Edema, Other (dressings clean/ dry/ intact) Skin: Positive for: Warm, Normal Color, Other (right arm, hyperpigmentation with blister resolving on right arm, BP cuff on left arm, right arm swelling improved) Psychiatric: Positive for: Alert - Medications Active Medications: Active Medications Generic Name Dose Route Start Last Admin Trade Name Freq PRN Reason Stop Dose Admin Ascorbic Acid 500 mg 08/02/17 10:15 08/05/17 10:47 Vitamin C 500 Mg Tab PO 500 mg DAILY DAWIT Administration Aspirin 81 mg 08/05/17 10:15 08/05/17 10:46 Aspirin Chewable PO 81 mg DAILY DAWIT Administration Clopidogrel Bisulfate 75 mg 07/25/17 10:00 08/05/17 10:46 Plavix PO 75 mg DAILY DAWIT Administration Epoetin Jacobo 10,000 unit 08/06/17 10:00 Procrit SC TTS [facility] Famotidine 20 mg 08/02/17 10:00 08/05/17 10:46 Pepcid PO 20 mg DAILY DAWIT Administration Ferric Sodium Gluconate Complex 125 mg 08/06/17 10:00 Ferrlecit IVPB 08/14/17 10:01 TTS DAWIT Finasteride 5 mg 07/25/17 10:00 08/05/17 10:46 Proscar PO 5 mg DAILY DAWIT Administration Heparin Sodium (Porcine) 5,000 units 07/30/17 14:30 07/31/17 02:30 Heparin SC Not Given Q12H DAWIT Hydralazine HCl 25 mg 07/24/17 18:00 07/29/17 17:38 Apresoline PO Not Given BID [facility] Ciprofloxacin 100 mls @ 67 mls/hr 07/29/17 13:30 08/05/17 01:30 Cipro 200mg/100ml D5w IVPB 67 mls/hr Q12H DAWIT Administration Metronidazole 500 mg in 100 mls @ 100 mls/hr 08/02/17 14:00 08/05/17 06:00 Flagyl IVPB 100 mls/hr Q8 DAWIT Administration Levothyroxine Sodium 25 mcg 07/25/17 06:30 08/05/17 06:14 Synthroid PO 25 mcg DAILY@0630 DAWIT Administration Metoprolol Tartrate 25 mg 07/26/17 10:30 07/30/17 18:16 Lopressor PO Not Given BID [facility] Midodrine 5 mg 08/01/17 14:00 08/05/17 10:49 Proamatine PO 5 mg TID DAWIT Administration Multivitamins 1 tab 08/02/17 10:15 08/05/17 10:46 Hexavitamin PO 1 tab DAILY [facility] Administration Paricalcitol 2 mcg 08/06/17 10:00 Zemplar IV TTS DAWIT Tamsulosin HCl 0.4 mg 07/25/17 10:00 08/05/17 10:46 Flomax PO 0.4 mg DAILY DAWIT Administration - Patient Studies Lab Studies: Microbiology Studies 07/30/17 09:54 Blood Culture - Final Blood-Venous NO GROWTH AFTER 5 DAYS Gram Stain - Final TEST NOT PERFORMED 07/30/17 09:54 Blood Culture - Final Blood-Venous NO GROWTH AFTER 5 DAYS Gram Stain - Final TEST NOT PERFORMED Lab Studies 08/05/17 08/05/17 08/05/17 Range/Units 06:19 06:19 05:38 WBC 14.0 H (4.8-10.8) K/uL RBC 3.13 L (4.40-5.90) Mil/uL Hgb 8.8 L (12.0-18.0) g/dL Hct 27.5 L (35.0-51.0) % MCV 87.7 (80.0-94.0) fL MCH 28.0 (27.0-31.0) pg MCHC 31.9 L (33.0-37.0) g/dL RDW 17.5 H (11.5-14.5) % Plt Count 141 (130-400) K/uL MPV 8.7 (7.2-11.7) fL Neut % (Auto) 82.1 H (50.0-75.0) % Lymph % (Auto) 12.6 L (20.0-40.0) % Burt % (Auto) 4.1 (0.0-10.0) % Eos % (Auto) 0.7 (0.0-4.0) % Baso % (Auto) 0.5 (0.0-2.0) % Neut # 11.5 H (1.8-7.0) K/uL Lymph # 1.8 (1.0-4.3) K/uL Burt # 0.6 (0.0-0.8) K/uL Eos # 0.1 (0.0-0.7) K/uL Baso # 0.1 (0.0-0.2) K/uL Sodium 137 (132-148) mmol/L Potassium 3.3 L (3.6-5.2) mmol/L Chloride 101 (98-107) mmol/L Carbon Dioxide 25 (22-30) mmol/L Anion Gap 14 (10-20) BUN 64 H (9-20) mg/dL Creatinine 3.6 H (0.8-1.5) mg/dL Est GFR ( Amer) 20 Est GFR (Non-Af Amer) 16 POC Glucose (mg/dL) 117 H (65-110) mg/dL Random Glucose 99 (75-110) mg/dL Calcium 7.1 L (8.6-10.4) mg/dl Phosphorus 4.4 (2.5-4.5) mg/dL Magnesium 2.0 (1.6-2.3) mg/dL Total Bilirubin 0.9 (0.2-1.3) mg/dL AST 100 H D (17-59) U/L ALT 279 H D (21-72) U/L Alkaline Phosphatase 164 H (38-126) U/L Total Protein 6.1 L (6.3-8.3) g/dL Albumin 2.5 L (3.5-5.0) g/dL Globulin 3.6 (2.2-3.9) gm/dL Albumin/Globulin Ratio 0.7 L (1.0-2.1) 08/04/17 08/04/17 08/04/17 Range/Units 23:50 17:33 11:48 WBC (4.8-10.8) K/uL RBC (4.40-5.90) Mil/uL Hgb (12.0-18.0) g/dL Hct (35.0-51.0) % MCV (80.0-94.0) fL MCH (27.0-31.0) pg MCHC (33.0-37.0) g/dL RDW (11.5-14.5) % Plt Count (130-400) K/uL MPV (7.2-11.7) fL Neut % (Auto) (50.0-75.0) % Lymph % (Auto) (20.0-40.0) % Burt % (Auto) (0.0-10.0) % Eos % (Auto) (0.0-4.0) % Baso % (Auto) (0.0-2.0) % Neut # (1.8-7.0) K/uL Lymph # (1.0-4.3) K/uL Burt # (0.0-0.8) K/uL Eos # (0.0-0.7) K/uL Baso # (0.0-0.2) K/uL Sodium (132-148) mmol/L Potassium (3.6-5.2) mmol/L Chloride (98-107) mmol/L Carbon Dioxide (22-30) mmol/L Anion Gap (10-20) BUN (9-20) mg/dL Creatinine (0.8-1.5) mg/dL Est GFR ( Amer) Est GFR (Non-Af Amer) POC Glucose (mg/dL) 94 119 H 130 H (65-110) mg/dL Random Glucose (75-110) mg/dL Calcium (8.6-10.4) mg/dl Phosphorus (2.5-4.5) mg/dL Magnesium (1.6-2.3) mg/dL Total Bilirubin (0.2-1.3) mg/dL AST (17-59) U/L ALT (21-72) U/L Alkaline Phosphatase (38-126) U/L Total Protein (6.3-8.3) g/dL Albumin (3.5-5.0) g/dL Globulin (2.2-3.9) gm/dL Albumin/Globulin Ratio (1.0-2.1) Laboratory Results - last 24 hr 08/04/17 08/04/17 08/04/17 11:48 17:33 23:50 WBC RBC Hgb Hct MCV MCH MCHC RDW Plt Count MPV Neut % (Auto) Lymph % (Auto) Burt % (Auto) Eos % (Auto) Baso % (Auto) Neut # Lymph # Burt # Eos # Baso # Sodium Potassium Chloride Carbon Dioxide Anion Gap BUN Creatinine Est GFR ( Amer) Est GFR (Non-Af Amer) POC Glucose (mg/dL) 130 H 119 H 94 Random Glucose Calcium Phosphorus Magnesium Total Bilirubin AST ALT Alkaline Phosphatase Total Protein Albumin Globulin Albumin/Globulin Ratio 08/05/17 08/05/17 08/05/17 05:38 06:19 06:19 WBC 14.0 H RBC 3.13 L Hgb 8.8 L Hct 27.5 L MCV 87.7 MCH 28.0 MCHC 31.9 L RDW 17.5 H Plt Count 141 MPV 8.7 Neut % (Auto) 82.1 H Lymph % (Auto) 12.6 L Burt % (Auto) 4.1 Eos % (Auto) 0.7 Baso % (Auto) 0.5 Neut # 11.5 H Lymph # 1.8 Burt # 0.6 Eos # 0.1 Baso # 0.1 Sodium 137 Potassium 3.3 L Chloride 101 Carbon Dioxide 25 Anion Gap 14 BUN 64 H Creatinine 3.6 H Est GFR ( Amer) 20 Est GFR (Non-Af Amer) 16 POC Glucose (mg/dL) 117 H Random Glucose 99 Calcium 7.1 L Phosphorus 4.4 Magnesium 2.0 Total Bilirubin 0.9 AST 100 H D ALT 279 H D Alkaline Phosphatase 164 H Total Protein 6.1 L Albumin 2.5 L Globulin 3.6 Albumin/Globulin Ratio 0.7 L Fingerstick Blood Sugar Results: 117 Review of Systems - Review of Systems Systems not reviewed;Unavailable: Altered Mental Status - Constitutional Constitutional: absent: Fever, Chills, Sweats, Weakness Assessment/Plan - Assessment and Plan (Free Text) Assessment: 82 y/o M with PMHx of CAD, HTN, CKD, dementia and obstructive uropathy requiring wise admitted 07/24 with lethargy and fever from the [facility]. Patient was transferred to the ICU 07/30 and received a permacath 08/01 now POD # 4. Neuro: lethargic, dementia - tylenol 650 mg PO Q6 PRN pain Cardio: hypotensive secondary to sepsis: resolved, hx of CHF, CAD - EKG (07/26): 1st degree AV block, right axis deviation, possible anterolateral subendocardial injury - Echo (08/01/16): LVEF 65-70%, left atrial dilation, LVH - Dr. Lynn Thrasher consulted, help appreciated - aspirin chewable 81 mg PO QD - plavix 75 mg PO QD - holding hydralazine - hold lopressor - midodrine Pulm: lobar pneumonia - Saturating 100% on 5L NC - CXR (07/30): opacification of the mid to lower lung zones bilaterally with small bilateral pleural effusions - Respiratory alkalosis: 7.47/ pCO2 19/HCO3 - Arterial lactate (08/01): 1.4 Nephro: acute on chronic kidney disease, obstructive uropathy - BUN/Cr (08/02): BUN 61/3.5, improved - Dr. Peterson consulted, help appreciated - Dr. Parada consulted, help appreciated - r internal jugular permacath placed by surgery 08/01 - stop IV fluids - paricalcitol TTS (ordered by Nicholas) -dialyzed on Saturday GI: dysphagia, transaminitis: improving - LFTs (08/05): Tbili 0.9 / AST 100 / ALT 279 / ALP 164 - NGT - tube feeding nepro - consider PEG placement - Dr. Romero consulted, help appreciated - zetia 10 mg PO QD - HBsAg, HBsAb, HBcAb, HCV Ab all negative (07/31) - Abd U/s (08/01):suggested acalculous cholecystitis, hepatic steatosis, no obstructive uropathy, no definite hydronephrosis : BPH, urosepsis: resolved - Dr. Sparks consulted, help appreciated - cystoscopy by Dr. Sparks cancalled - flomax 0.4 mg PO daily - finasteride 5 mg PO daily Endo: hypothyroidism - levothyroxine 25mcg PO daily Hematology: anemia, leukocytosis likely secondary to sepsis - Hgb (08/05): 8.8 - Dr. Peterson recommends Epogen 10,000u 3x weekly -Ferrlecit 125mg TTS - WBC (08/05): 14, worsening ID: urosepsis, possible pneumonia - urine cx (07/24): final culture grew klebsiella pneumoniae and enterococcus faecalis, both sensitive to ciprofloxacin - Dr. Cantu consulted, help appreciated - Code sepsis called in ICU (07/30) - Ciprofloxacin 200mg q12h -Flagyl 500mg q8h - blood cultures (07/30): final results show no growth - urine culures (07/29): final results show no growth - sputum culture (07/30): results pending Derm: bilateral heel wounds - Wound care consulted - vitamin C 500 mg PO BID - Multivitamin 1 tab PO QD PPX: - DVT: SCDs, restarted heparin - GI: pepcid 20mg IVP daily <Carlos Mak - Last Filed: 08/05/17 13:44> CCU Objective - Vital Signs / Intake & Output Vital Signs (Last 4 hours): Vital Signs Temp Pulse Resp BP Pulse Ox 08/05/17 13:00 98 H 14 93 L 08/05/17 12:24 97 H 17 93/53 L 98 08/05/17 12:00 97.6 F 96 H 19 97 08/05/17 11:24 97 H 18 101/59 L 97 08/05/17 11:00 101 H 19 97 08/05/17 10:24 93 H 19 106/63 97 08/05/17 10:00 96 H 20 97 Intake and Output (Last 8hrs): Intake & Output 08/04/17 08/05/17 08/05/17 22:59 06:59 14:59 Intake Total 816 982 788 Output Total 0 0 0 Balance 816 982 788 Weight 176 lb Intake: Intake, IV Amount 336 452 168 Right Wrist 336 452 168 Oral 200 Tube Feeding 480 480 420 Other 50 Output: Urine 0 0 0 Urethral (Wise) 0 Urine, Voided 0 0 0 Other: # Voids Urine, Voided 0 # Bowel Movements 0 - Medications Active Medications: Active Medications Generic Name Dose Route Start Last Admin Trade Name Freq PRN Reason Stop Dose Admin Ascorbic Acid 500 mg 08/02/17 10:15 08/05/17 10:47 Vitamin C 500 Mg Tab PO 500 mg DAILY DAWIT Administration Aspirin 81 mg 08/05/17 10:15 08/05/17 10:46 Aspirin Chewable PO 81 mg DAILY DAWIT Administration Clopidogrel Bisulfate 75 mg 07/25/17 10:00 08/05/17 10:46 Plavix PO 75 mg DAILY [facility] Administration Epoetin Jacobo 10,000 unit 08/06/17 10:00 Procrit SC TTS [facility] Famotidine 20 mg 08/02/17 10:00 08/05/17 10:46 Pepcid PO 20 mg DAILY DAWIT Administration Ferric Sodium Gluconate Complex 125 mg 08/06/17 10:00 Ferrlecit IVPB 08/14/17 10:01 TTS DAWIT Finasteride 5 mg 07/25/17 10:00 08/05/17 10:46 Proscar PO 5 mg DAILY [facility] Administration Heparin Sodium (Porcine) 5,000 units 07/30/17 14:30 07/31/17 02:30 Heparin SC Not Given Q12H [facility] Hydralazine HCl 25 mg 07/24/17 18:00 07/29/17 17:38 Apresoline PO Not Given BID [facility] Ciprofloxacin 100 mls @ 67 mls/hr 07/29/17 13:30 08/05/17 01:30 Cipro 200mg/100ml D5w IVPB 67 mls/hr Q12H DAWIT Administration Metronidazole 500 mg in 100 mls @ 100 mls/hr 08/02/17 14:00 08/05/17 06:00 Flagyl IVPB 100 mls/hr Q8 DAWIT Administration Levothyroxine Sodium 25 mcg 07/25/17 06:30 08/05/17 06:14 Synthroid PO 25 mcg DAILY@0630 DAWIT Administration Metoprolol Tartrate 25 mg 07/26/17 10:30 07/30/17 18:16 Lopressor PO Not Given BID DAWIT Midodrine 5 mg 08/01/17 14:00 08/05/17 10:49 Proamatine PO 5 mg TID DAWIT Administration Multivitamins 1 tab 08/02/17 10:15 08/05/17 10:46 Hexavitamin PO 1 tab DAILY DAWIT Administration Paricalcitol 2 mcg 08/06/17 10:00 Zemplar IV TTS DAWIT Tamsulosin HCl 0.4 mg 07/25/17 10:00 08/05/17 10:46 Flomax PO 0.4 mg DAILY DAWIT Administration - Patient Studies Lab Studies: Microbiology Studies 07/30/17 09:54 Blood Culture - Final Blood-Venous NO GROWTH AFTER 5 DAYS Gram Stain - Final TEST NOT PERFORMED 07/30/17 09:54 Blood Culture - Final Blood-Venous NO GROWTH AFTER 5 DAYS Gram Stain - Final TEST NOT PERFORMED Lab Studies 08/05/17 08/05/17 08/05/17 Range/Units 11:28 06:19 06:19 WBC 14.0 H (4.8-10.8) K/uL RBC 3.13 L (4.40-5.90) Mil/uL Hgb 8.8 L (12.0-18.0) g/dL Hct 27.5 L (35.0-51.0) % MCV 87.7 (80.0-94.0) fL MCH 28.0 (27.0-31.0) pg MCHC 31.9 L (33.0-37.0) g/dL RDW 17.5 H (11.5-14.5) % Plt Count 141 (130-400) K/uL MPV 8.7 (7.2-11.7) fL Neut % (Auto) 82.1 H (50.0-75.0) % Lymph % (Auto) 12.6 L (20.0-40.0) % Burt % (Auto) 4.1 (0.0-10.0) % Eos % (Auto) 0.7 (0.0-4.0) % Baso % (Auto) 0.5 (0.0-2.0) % Neut # 11.5 H (1.8-7.0) K/uL Lymph # 1.8 (1.0-4.3) K/uL Burt # 0.6 (0.0-0.8) K/uL Eos # 0.1 (0.0-0.7) K/uL Baso # 0.1 (0.0-0.2) K/uL Sodium 137 (132-148) mmol/L Potassium 3.3 L (3.6-5.2) mmol/L Chloride 101 (98-107) mmol/L Carbon Dioxide 25 (22-30) mmol/L Anion Gap 14 (10-20) BUN 64 H (9-20) mg/dL Creatinine 3.6 H (0.8-1.5) mg/dL Est GFR ( Amer) 20 Est GFR (Non-Af Amer) 16 POC Glucose (mg/dL) 124 H (65-110) mg/dL Random Glucose 99 (75-110) mg/dL Calcium 7.1 L (8.6-10.4) mg/dl Phosphorus 4.4 (2.5-4.5) mg/dL Magnesium 2.0 (1.6-2.3) mg/dL Total Bilirubin 0.9 (0.2-1.3) mg/dL AST 100 H D (17-59) U/L ALT 279 H D (21-72) U/L Alkaline Phosphatase 164 H (38-126) U/L Total Protein 6.1 L (6.3-8.3) g/dL Albumin 2.5 L (3.5-5.0) g/dL Globulin 3.6 (2.2-3.9) gm/dL Albumin/Globulin Ratio 0.7 L (1.0-2.1) 08/05/17 08/04/17 08/04/17 Range/Units 05:38 23:50 17:33 WBC (4.8-10.8) K/uL RBC (4.40-5.90) Mil/uL Hgb (12.0-18.0) g/dL Hct (35.0-51.0) % MCV (80.0-94.0) fL MCH (27.0-31.0) pg MCHC (33.0-37.0) g/dL RDW (11.5-14.5) % Plt Count (130-400) K/uL MPV (7.2-11.7) fL Neut % (Auto) (50.0-75.0) % Lymph % (Auto) (20.0-40.0) % Burt % (Auto) (0.0-10.0) % Eos % (Auto) (0.0-4.0) % Baso % (Auto) (0.0-2.0) % Neut # (1.8-7.0) K/uL Lymph # (1.0-4.3) K/uL Burt # (0.0-0.8) K/uL Eos # (0.0-0.7) K/uL Baso # (0.0-0.2) K/uL Sodium (132-148) mmol/L Potassium (3.6-5.2) mmol/L Chloride (98-107) mmol/L Carbon Dioxide (22-30) mmol/L Anion Gap (10-20) BUN (9-20) mg/dL Creatinine (0.8-1.5) mg/dL Est GFR ( Amer) Est GFR (Non-Af Amer) POC Glucose (mg/dL) 117 H 94 119 H (65-110) mg/dL Random Glucose (75-110) mg/dL Calcium (8.6-10.4) mg/dl Phosphorus (2.5-4.5) mg/dL Magnesium (1.6-2.3) mg/dL Total Bilirubin (0.2-1.3) mg/dL AST (17-59) U/L ALT (21-72) U/L Alkaline Phosphatase (38-126) U/L Total Protein (6.3-8.3) g/dL Albumin (3.5-5.0) g/dL Globulin (2.2-3.9) gm/dL Albumin/Globulin Ratio (1.0-2.1) 11/12/17 Range/Units 11:48 WBC (4.8-10.8) K/uL RBC (4.40-5.90) Mil/uL Hgb (12.0-18.0) g/dL Hct (35.0-51.0) % MCV (80.0-94.0) fL MCH (27.0-31.0) pg MCHC (33.0-37.0) g/dL RDW (11.5-14.5) % Plt Count (130-400) K/uL MPV (7.2-11.7) fL Neut % (Auto) (50.0-75.0) % Lymph % (Auto) (20.0-40.0) % Burt % (Auto) (0.0-10.0) % Eos % (Auto) (0.0-4.0) % Baso % (Auto) (0.0-2.0) % Neut # (1.8-7.0) K/uL Lymph # (1.0-4.3) K/uL Burt # (0.0-0.8) K/uL Eos # (0.0-0.7) K/uL Baso # (0.0-0.2) K/uL Sodium (132-148) mmol/L Potassium (3.6-5.2) mmol/L Chloride (98-107) mmol/L Carbon Dioxide (22-30) mmol/L Anion Gap (10-20) BUN (9-20) mg/dL Creatinine (0.8-1.5) mg/dL Est GFR ( Amer) Est GFR (Non-Af Amer) POC Glucose (mg/dL) 130 H (65-110) mg/dL Random Glucose (75-110) mg/dL Calcium (8.6-10.4) mg/dl Phosphorus (2.5-4.5) mg/dL Magnesium (1.6-2.3) mg/dL Total Bilirubin (0.2-1.3) mg/dL AST (17-59) U/L ALT (21-72) U/L Alkaline Phosphatase (38-126) U/L Total Protein (6.3-8.3) g/dL Albumin (3.5-5.0) g/dL Globulin (2.2-3.9) gm/dL Albumin/Globulin Ratio (1.0-2.1) Laboratory Results - last 24 hr 08/04/17 08/04/17 08/04/17 11:48 17:33 23:50 WBC RBC Hgb Hct MCV MCH MCHC RDW Plt Count MPV Neut % (Auto) Lymph % (Auto) Burt % (Auto) Eos % (Auto) Baso % (Auto) Neut # Lymph # Burt # Eos # Baso # Sodium Potassium Chloride Carbon Dioxide Anion Gap BUN Creatinine Est GFR ( Amer) Est GFR (Non-Af Amer) POC Glucose (mg/dL) 130 H 119 H 94 Random Glucose Calcium Phosphorus Magnesium Total Bilirubin AST ALT Alkaline Phosphatase Total Protein Albumin Globulin Albumin/Globulin Ratio 08/05/17 08/05/17 08/05/17 05:38 06:19 06:19 WBC 14.0 H RBC 3.13 L Hgb 8.8 L Hct 27.5 L MCV 87.7 MCH 28.0 MCHC 31.9 L RDW 17.5 H Plt Count 141 MPV 8.7 Neut % (Auto) 82.1 H Lymph % (Auto) 12.6 L Burt % (Auto) 4.1 Eos % (Auto) 0.7 Baso % (Auto) 0.5 Neut # 11.5 H Lymph # 1.8 Burt # 0.6 Eos # 0.1 Baso # 0.1 Sodium 137 Potassium 3.3 L Chloride 101 Carbon Dioxide 25 Anion Gap 14 BUN 64 H Creatinine 3.6 H Est GFR ( Amer) 20 Est GFR (Non-Af Amer) 16 POC Glucose (mg/dL) 117 H Random Glucose 99 Calcium 7.1 L Phosphorus 4.4 Magnesium 2.0 Total Bilirubin 0.9 AST 100 H D ALT 279 H D Alkaline Phosphatase 164 H Total Protein 6.1 L Albumin 2.5 L Globulin 3.6 Albumin/Globulin Ratio 0.7 L 08/05/17 11:28 WBC RBC Hgb Hct MCV MCH MCHC RDW Plt Count MPV Neut % (Auto) Lymph % (Auto) Burt % (Auto) Eos % (Auto) Baso % (Auto) Neut # Lymph # Burt # Eos # Baso # Sodium Potassium Chloride Carbon Dioxide Anion Gap BUN Creatinine Est GFR ( Amer) Est GFR (Non-Af Amer) POC Glucose (mg/dL) 124 H Random Glucose Calcium Phosphorus Magnesium Total Bilirubin AST ALT Alkaline Phosphatase Total Protein Albumin Globulin Albumin/Globulin Ratio Attending/Attestation - Attestation I have personally seen and examined this patient.: Yes I have fully participated in the care of the patient.: Yes I have reviewed all pertinent clinical information: Yes Notes (Text): 08/05/17 13:43 Patient is more awake. Responding. Complaining of abdominal pain. Patient is currently an NG tube proceeding. Patient is having difficulty in swallowing. Left femoral hemodialysis catheter noted. There is a question of bleeding. But currently stable. Clinically patient was examined in the rounds, labs reviewed, imaging studies reviewed Clinical decision was made. Discussed with ICU team. Surgical follow-up needed. Endoscopy may be needed for PEG tube placement. Continue the ICU today
--- NOTE | 2017-08-05 14:36 | PN ---
LOCATION: ICU 16. SUBJECTIVE: This is an 82-year-old male, seen and examined in rounds without significant clinical changes, appear to be somewhat more awake with period of mild semi-confusion and reorientation on and off, with NG tube is in place for feeding purposes. The entire chart is reviewed including, but not limited to the most recent lab and radiology study results, current and the previous medication list, current and the previous medical events. Case discussed at length with the staff. Today's labs showed hemoglobin of 14.0 with low hemoglobin of 8.8, low hematocrit of 27.5, with low potassium of 3.3 with increased BUN of 64, creatinine of 3.6, with low calcium 7.1, but subsequent improvement of AST of 100, ALT of 279, with alkaline phosphatase 164, with low albumin of 2.5. PHYSICAL EXAMINATION: GENERAL: An 82-year-old male. VITAL SIGNS: Respiratory rate of 20-22, afebrile, heart rate of 90, blood pressure of 108/60. HEENT: Showed pale dry oral mucoid membranes, nonicteric sclerae. LUNGS: Few scattered crepitations and decreased air entry at bases. HEART: Positive S1 and S2. ABDOMEN: Soft with slight distention. No mass or organomegaly. No rebound tenderness or guarding. EXTREMITIES: Lower extremity mild edematous changes. No clubbing or cyanosis. NEUROLOGIC: No reported new neurological deficits, sensory or motor. IMPRESSION: 1. Malnutrition. 2. Hypoalbuminemia. 3. Failure to thrive. 4. Abnormal liver function test, most likely secondary to infectious process, gradually improving. 5. Aspiration pneumonia with pleural effusion bilaterally. 6. Acute renal failure. 7. The patient is a candidate for percutaneous endoscopic gastrostomy insertion. SUGGESTIONS: 1. Agree with your plan. 2. The patient may need thoracocentesis before any aggressive GI procedure. 3. We will contact the legal guardian for possible consent for PEG insertion. Katia Pardo MD CC: Katia Pardo MD
--- NOTE | 2017-08-05 19:27 | CP.PCM.PN ---
Subjective - Date & Time of Evaluation Date of Evaluation: 08/05/17 Time of Evaluation: 19:27 - Subjective Subjective: pt is seen and examined, follow up consult is dictated #[id number] Objective - Vital Signs/Intake and Output Vital Signs (last 24 hours): Temp Pulse Resp BP Pulse Ox 97.3 F L 90 14 101/56 L 99 08/05/17 16:00 08/05/17 19:00 08/05/17 19:00 08/05/17 18:24 08/05/17 19:00 Intake and Output: 08/05/17 08/06/17 18:59 06:59 Intake Total 1388 60 Output Total 0 Balance 1388 60 - Medications Medications: Current Medications Ascorbic Acid (Vitamin C 500 Mg Tab) 500 mg PO DAILY [facility] Last Admin: 08/05/17 10:47 Dose: 500 mg Aspirin (Aspirin Chewable) 81 mg PO DAILY [facility] Last Admin: 08/05/17 10:46 Dose: 81 mg Clopidogrel Bisulfate (Plavix) 75 mg PO DAILY [facility] Last Admin: 08/05/17 10:46 Dose: 75 mg Epoetin Jacobo (Procrit) 10,000 unit SC TTS [facility] Famotidine (Pepcid) 20 mg PO DAILY [facility] Last Admin: 08/05/17 10:46 Dose: 20 mg Ferric Sodium Gluconate Complex (Ferrlecit) 125 mg IVPB TTS [facility] Stop: 08/14/17 10:01 Finasteride (Proscar) 5 mg PO DAILY [facility] Last Admin: 08/05/17 10:46 Dose: 5 mg Heparin Sodium (Porcine) (Heparin) 5,000 units SC Q12H [facility] Last Admin: 08/05/17 15:39 Dose: 5,000 units Hydralazine HCl (Apresoline) 25 mg PO BID [facility] Last Admin: 07/29/17 17:38 Dose: Not Given Ciprofloxacin (Cipro 200mg/100ml D5w) 100 mls @ 67 mls/hr IVPB Q12H [facility] Last Admin: 08/05/17 13:49 Dose: 67 mls/hr Metronidazole (Flagyl) 500 mg in 100 mls @ 100 mls/hr IVPB Q8 [facility] Last Admin: 08/05/17 13:49 Dose: 100 mls/hr Levothyroxine Sodium (Synthroid) 25 mcg PO DAILY@0630 [facility] Last Admin: 08/05/17 06:14 Dose: 25 mcg Metoprolol Tartrate (Lopressor) 25 mg PO BID [facility] Last Admin: 07/30/17 18:16 Dose: Not Given Midodrine (Proamatine) 5 mg PO TID [facility] Last Admin: 08/05/17 17:27 Dose: 5 mg Multivitamins (Hexavitamin) 1 tab PO DAILY [facility] Last Admin: 08/05/17 10:46 Dose: 1 tab Paricalcitol (Zemplar) 2 mcg IV TTS [facility] Tamsulosin HCl (Flomax) 0.4 mg PO DAILY [facility] Last Admin: 08/05/17 10:46 Dose: 0.4 mg - Labs Labs: 08/05/17 06:19 08/05/17 06:19 PT 16.0 SECONDS (9.7-12.2) H 07/30/17 12:16 INR 1.4 07/30/17 12:16 APTT 30 SECONDS (21-34) 07/30/17 08:54
--- NOTE | 2017-08-05 22:39 | CP.PCM.PN ---
Subjective - Date & Time of Evaluation Date of Evaluation: 08/05/17 Time of Evaluation: 20:00 - Subjective Subjective: Pt is more alert, has Ng tibe fpr feeding, on antibiotics, is for swallowing eval tommorow Objective - Vital Signs/Intake and Output Vital Signs (last 24 hours): Temp Pulse Resp BP Pulse Ox 97.6 F 98 H 22 100/53 L 95 08/05/17 20:00 08/05/17 22:00 08/05/17 22:00 08/05/17 22:00 08/05/17 22:00 Intake and Output: 08/05/17 08/06/17 18:59 06:59 Intake Total 1388 370 Output Total 0 Balance 1388 370 - Medications Medications: Current Medications Ascorbic Acid (Vitamin C 500 Mg Tab) 500 mg PO DAILY [facility] Last Admin: 08/05/17 10:47 Dose: 500 mg Aspirin (Aspirin Chewable) 81 mg PO DAILY [facility] Last Admin: 08/05/17 10:46 Dose: 81 mg Clopidogrel Bisulfate (Plavix) 75 mg PO DAILY [facility] Last Admin: 08/05/17 10:46 Dose: 75 mg Epoetin Jacobo (Procrit) 10,000 unit SC TTS [facility] Famotidine (Pepcid) 20 mg PO DAILY [facility] Last Admin: 08/05/17 10:46 Dose: 20 mg Ferric Sodium Gluconate Complex (Ferrlecit) 125 mg IVPB TTS [facility] Stop: 08/14/17 10:01 Finasteride (Proscar) 5 mg PO DAILY [facility] Last Admin: 08/05/17 10:46 Dose: 5 mg Heparin Sodium (Porcine) (Heparin) 5,000 units SC Q12H [facility] Last Admin: 08/05/17 15:39 Dose: 5,000 units Hydralazine HCl (Apresoline) 25 mg PO BID [facility] Last Admin: 07/29/17 17:38 Dose: Not Given Ciprofloxacin (Cipro 200mg/100ml D5w) 100 mls @ 67 mls/hr IVPB Q12H [facility] Last Admin: 08/05/17 13:49 Dose: 67 mls/hr Metronidazole (Flagyl) 500 mg in 100 mls @ 100 mls/hr IVPB Q8 [facility] Last Admin: 08/05/17 21:20 Dose: 100 mls/hr Levothyroxine Sodium (Synthroid) 25 mcg PO DAILY@0630 [facility] Last Admin: 08/05/17 06:14 Dose: 25 mcg Metoprolol Tartrate (Lopressor) 25 mg PO BID [facility] Last Admin: 07/30/17 18:16 Dose: Not Given Midodrine (Proamatine) 5 mg PO TID [facility] Last Admin: 08/05/17 17:27 Dose: 5 mg Multivitamins (Hexavitamin) 1 tab PO DAILY [facility] Last Admin: 08/05/17 10:46 Dose: 1 tab Paricalcitol (Zemplar) 2 mcg IV TTS [facility] Tamsulosin HCl (Flomax) 0.4 mg PO DAILY [facility] Last Admin: 08/05/17 10:46 Dose: 0.4 mg - Labs Labs: 08/05/17 06:19 08/05/17 06:19 PT 16.0 SECONDS (9.7-12.2) H 07/30/17 12:16 INR 1.4 07/30/17 12:16 APTT 30 SECONDS (21-34) 07/30/17 08:54 - Constitutional Appears: No Acute Distress - Head Exam Head Exam: ATRAUMATIC, NORMAL INSPECTION, NORMOCEPHALIC - Eye Exam Eye Exam: EOMI, Normal appearance, PERRL Pupil Exam: NORMAL ACCOMODATION, PERRL - Respiratory Exam Respiratory Exam: Clear to Ausculation Bilateral, NORMAL BREATHING PATTERN - Cardiovascular Exam Cardiovascular Exam: REGULAR RHYTHM, +S1, +S2. absent: Murmur - GI/Abdominal Exam GI & Abdominal Exam: Soft, Normal Bowel Sounds. absent: Tenderness Assessment and Plan (1) Fever Status: Acute (2) Leukocytosis Status: Acute (3) UTI (urinary tract infection) Status: Acute (4) Leg ulcer Status: Acute (5) Toxic metabolic encephalopathy Status: Acute
--- NOTE | 2017-08-06 00:13 | PN ---
DATE: The patient is located in ICU, bed 16. REQUESTED BY: Daniel Coyle MD REASON FOR FOLLOWUP: Acute renal failure, chronic kidney disease versus progression of the chronic kidney disease to end-stage renal disease and sepsis. Mr. Cunningham is 82 years old elderly male with a past medical history significant for longstanding hypertension, coronary artery disease status post CABG, tophaceous gout, CHF, chronic kidney disease stage IV, who was recently an admit to [facility] on 05/27 and then subsequently transferred to correction on 06/06. The patient was admitted now with fever and altered mental status, and the patient is being treated for sepsis and urosepsis and also code sepsis, subsequently transferred to the ICU. The patient developed worsening renal function requiring initiation of the hemodialysis. The patient's family patient is placed on hemodialysis three times a week Saturday, , Saturday. The patient is not in acute distress, following simple commands today. No chest pain. No palpitation. No fever. No cough. No nausea, no vomiting or diarrhea. PHYSICAL EXAMINATION: VITAL SIGNS: As follows, blood pressure 108/61, pulse 96, respirations 19, saturation 99%, and temperature is 97.6. GENERAL: Mr. Cunningham is 82 years old elderly male, moderate-built, moderate nourished, not in any distress. HEENT: Pupils normal and reactive to light and accommodation. Conjunctivae pink. Sclerae anicteric. Tongue is moist. NECK: Trachea is midline. LUNGS: Symmetric on both sides. Bilateral breath sounds present. Occasional basilar crackles present. CVS: [place] at the fifth intercostal space, midclavicular area. S1, S2 audible. No murmur or gallop. The patient has a midsternal scar present from the previous CABG. ABDOMEN: Normal in appearance, soft, tympanic. No guarding. No rigidity. No hepatosplenomegaly. CRAFT RECRUITER: The patient is alert, awake, following simple commands. EXTREMITIES: No cyanosis, no clubbing, no edema. 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 CURRENT MEDICATIONS: Include hydralazine on hold, aspirin 81 mg daily, Cipro 200 mg IV q. 12 hours, Ferrlecit 125 mg three times a week, Flagyl 500 mg IV q. 8 hours, Flomax 0.4 mg daily, subcutaneous heparin 5000 units q. 12 hours, multivitamin one tablet daily, Lopressor 25 mg p.o. b.i.d. on hold, Pepcid 20 mg p.o. daily, Plavix 75 mg p.o. daily, midodrine 5 mg p.o. t.i.d., Procrit 10,000 units subcutaneous three times a week, Proscar 5 mg p.o. daily, Synthroid 125 mcg p.o. daily, vitamin C 500 mg p.o. daily, and Zemplar 2 mcg every three times a week. LABORATORY DATA: As of 08/05/2017, WBC 14, hemoglobin 8.8, hematocrit is 27.5, platelets 141. Sodium 137, potassium 3.3, chloride 101, CO2 of 25, BUN 64, creatinine 3.6, glucose 117, calcium 7.1, phosphorus 4.4, magnesium 2, total bili 0.90, AST 100, ALT 279, alkaline phosphatase 164, and total protein 6.1, albumin is 2.5. As of 07/30/2017, blood culture x2 negative day five. MRSA screening was negative. As of 07/24/2017, urine culture positive for Klebsiella pneumoniae and Enterococcus faecalis, and both are sensitive to Cipro. Chest x-ray as of 08/04/2017, no change in consolidate versus pulmonary edema in the right lung, persistent pleural effusion large on the right, persistent cardiomegaly, pulmonary venous congestion. SUMMARY: Mr. Cunningham is an 82 years old elderly male with a history of hypertension, coronary artery disease status post coronary artery bypass grafting, chronic kidney disease, tophaceous gout, congestive heart failure, status post coronary artery bypass grafting, was admitted with fever and altered mental status and being treated for urosepsis, anemia status post transfusion, and increased BUN and creatinine on hemodialysis. 1. Renal failure, [id number] kidney disease versus end-stage renal disease. 2. Anemia. 3. Sepsis. 4. Pneumonia. 5. Congestive heart failure. Blood pressure is still on the borderline. Continue IV antibiotics as per Infectious Diseases recommendations. Continue to monitor his blood pressure, and we will schedule for hemodialysis in a.m. The patient may not tolerate ultrafiltration at this time. We will follow with you. Thank you for allowing me to participate in your patient's care. Continue Procrit during dialysis. Hernan Peterson MD [facility] # [id number]
[2017-08-06] MEDS: Ciprofloxacin 200mg/100ml D5W 100 ML IVPB SCH ×2 (00:50→14:51)
[2017-08-06] MEDS: metroNIDAZOLE IV 500 mg/100 ml 500 MG/100 ML BAG IVPB SCH ×3 (05:20→21:37)
[2017-08-06] MEDS: Levothyroxine 25 MCG TAB PO SCH (05:45)
[2017-08-06 06:45] LABS: BASO # 0.1 K/uL (0.0-0.2); BASO % 0.4 % (0.0-2.0); EOS # 0.1 K/uL (0.0-0.7); EOS % 0.5 % (0.0-4.0); HEMATOCRIT 28.2 % (35.0-51.0); LYMPH # 1.2 K/uL (1.0-4.3); LYMPH % 9.2 % (20.0-40.0); MEAN CELL VOLUME 88.2 fL (80.0-94.0); MEAN CORPUSCULAR HGB CONC 31.8 g/dL (33.0-37.0); MEAN PLATELET VOLUME 9.7 fL (7.2-11.7); MONO # 0.5 K/uL (0.0-0.8); NRBC % 0.1 % (0.0-2.0); PLATELET COUNT 134 K/uL (130-400); RED CELL DISTRIBUTION WIDTH 17.7 % (11.5-14.5)
[2017-08-06 07:07] LABS: POTASSIUM 3.5 mmol/L (3.6-5.2)
[2017-08-06 07:09] LABS: ALB/GLOB RATIO 0.7 (1.0-2.1); BILIRUBIN,TOTAL 0.9 mg/dL (0.2-1.3); TOTAL PROTEIN 6.1 g/dL (6.3-8.3)
[2017-08-06 07:10] LABS: CALCIUM 7.2 mg/dl (8.6-10.4); PHOSPHOROUS 4.8 mg/dL (2.5-4.5)
[2017-08-06 08:46] LABS: EOSINOPHIL 1 % (0-4); NEUTROPHIL 87 % (50-75); TOTAL CELLS COUNTED 100
--- NOTE | 2017-08-06 09:44 | CP.PCM.PN ---
Subjective - Date & Time of Evaluation Date of Evaluation: 08/06/17 Time of Evaluation: 09:43 - Subjective Subjective: pt is seen and examined, follow up consult is dictated #[id number] for hd today Objective - Vital Signs/Intake and Output Vital Signs (last 24 hours): Temp Pulse Resp BP Pulse Ox 97.4 F L 94 H 18 94/70 L 96 08/06/17 08:00 08/06/17 08:00 08/06/17 08:00 08/06/17 08:00 08/06/17 08:00 Intake and Output: 08/06/17 08/06/17 06:59 18:59 Intake Total 1150 120 Balance 1150 120 - Medications Medications: Current Medications Ascorbic Acid (Vitamin C 500 Mg Tab) 500 mg PO DAILY [facility] Last Admin: 08/05/17 10:47 Dose: 500 mg Aspirin (Aspirin Chewable) 81 mg PO DAILY [facility] Last Admin: 08/05/17 10:46 Dose: 81 mg Clopidogrel Bisulfate (Plavix) 75 mg PO DAILY [facility] Last Admin: 08/05/17 10:46 Dose: 75 mg Epoetin Jacobo (Procrit) 10,000 unit SC TTS [facility] Famotidine (Pepcid) 20 mg PO DAILY [facility] Last Admin: 08/05/17 10:46 Dose: 20 mg Ferric Sodium Gluconate Complex (Ferrlecit) 125 mg IVPB TTS [facility] Stop: 08/14/17 10:01 Finasteride (Proscar) 5 mg PO DAILY [facility] Last Admin: 08/05/17 10:46 Dose: 5 mg Heparin Sodium (Porcine) (Heparin) 5,000 units SC Q12H [facility] Last Admin: 08/06/17 03:30 Dose: 5,000 units Hydralazine HCl (Apresoline) 25 mg PO BID [facility] Last Admin: 07/29/17 17:38 Dose: Not Given Ciprofloxacin (Cipro 200mg/100ml D5w) 100 mls @ 67 mls/hr IVPB Q12H [facility] Last Admin: 08/06/17 00:50 Dose: 67 mls/hr Metronidazole (Flagyl) 500 mg in 100 mls @ 100 mls/hr IVPB Q8 [facility] Last Admin: 08/06/17 05:20 Dose: 100 mls/hr Levothyroxine Sodium (Synthroid) 25 mcg PO DAILY@0630 [facility] Last Admin: 08/06/17 05:45 Dose: 25 mcg Metoprolol Tartrate (Lopressor) 25 mg PO BID [facility] Last Admin: 07/30/17 18:16 Dose: Not Given Midodrine (Proamatine) 5 mg PO TID [facility] Last Admin: 08/05/17 17:27 Dose: 5 mg Multivitamins (Hexavitamin) 1 tab PO DAILY [facility] Last Admin: 08/05/17 10:46 Dose: 1 tab Paricalcitol (Zemplar) 2 mcg IV TTS [facility] Tamsulosin HCl (Flomax) 0.4 mg PO DAILY [facility] Last Admin: 08/05/17 10:46 Dose: 0.4 mg - Labs Labs: 08/06/17 06:40 08/06/17 06:40 PT 16.0 SECONDS (9.7-12.2) H 07/30/17 12:16 INR 1.4 07/30/17 12:16 APTT 30 SECONDS (21-34) 07/30/17 08:54
[2017-08-06] MEDS ORDERED: EPOETIN ALFA 10,000 UNIT/ML ML SC SCH (10:00)
--- NOTE | 2017-08-06 10:24 | CP.CCUPN ---
<Leora Wen Addie - Last Filed: 08/06/17 10:21> CCU Subjective - Physician Review Subjective (Free Text): Patient seen and examined at bedside. Patient is lethargic, responsive to name but unable to follow commands. ROS unobtainable at this time due to clinical condition. CCU Objective - Vital Signs / Intake & Output Vital Signs (Last 4 hours): Vital Signs Temp Pulse Resp BP Pulse Ox 08/06/17 08:00 97.4 F L 94 H 18 94/70 L 96 08/06/17 07:00 92 H 18 96/62 L 94 L Intake and Output (Last 8hrs): Intake & Output 08/05/17 08/06/17 08/06/17 22:59 06:59 14:59 Intake Total 760 780 120 Balance 760 780 120 Weight 183 lb 4 oz Intake: Intake, IV Amount 200 200 Left Wrist 100 200 Right Wrist 100 Oral 80 100 Tube Feeding 480 480 120 Other: # Voids Urine, Voided 0 # Bowel Movements 0 - Physical Exam Head: Positive for: Atraumatic, Normocephalic, Other Extroacular Muscles: Positive for: EOMI Mouth: Positive for: Moist Mucous Membranes Neck: Positive for: Other Respiratory/Chest: Positive for: Good Air Exchange, Rhonchi. Negative for: Accessory Muscle Use Abdomen: Negative for: Tenderness, Distention Lower Extremity: Positive for: Edema, Other (dressings clean/ dry/ intact) Skin: Positive for: Warm, Normal Color, Other (right arm, hyperpigmentation with blister resolving on right arm, BP cuff on left arm, right arm swelling improved) Psychiatric: Positive for: Alert - Medications Active Medications: Active Medications Generic Name Dose Route Start Last Admin Trade Name Uday PRN Reason Stop Dose Admin Ascorbic Acid 500 mg 08/02/17 10:15 08/05/17 10:47 Vitamin C 500 Mg Tab PO 500 mg DAILY DAWIT Administration Aspirin 81 mg 08/05/17 10:15 08/05/17 10:46 Aspirin Chewable PO 81 mg DAILY DAWIT Administration Clopidogrel Bisulfate 75 mg 07/25/17 10:00 08/05/17 10:46 Plavix PO 75 mg DAILY DAWIT Administration Epoetin Jacobo 10,000 unit 08/06/17 10:00 Procrit SC TTS [facility] Famotidine 20 mg 08/02/17 10:00 08/05/17 10:46 Pepcid PO 20 mg DAILY DAWIT Administration Ferric Sodium Gluconate Complex 125 mg 08/06/17 10:00 Ferrlecit IVPB 08/14/17 10:01 TTS DAWIT Finasteride 5 mg 07/25/17 10:00 08/05/17 10:46 Proscar PO 5 mg DAILY DAWIT Administration Heparin Sodium (Porcine) 5,000 units 07/30/17 14:30 08/06/17 03:30 Heparin SC 5,000 units Q12H DAWIT Administration Hydralazine HCl 25 mg 07/24/17 18:00 07/29/17 17:38 Apresoline PO Not Given BID DAWIT Ciprofloxacin 100 mls @ 67 mls/hr 07/29/17 13:30 08/06/17 00:50 Cipro 200mg/100ml D5w IVPB 67 mls/hr Q12H DAWIT Administration Metronidazole 500 mg in 100 mls @ 100 mls/hr 08/02/17 14:00 08/06/17 05:20 Flagyl IVPB 100 mls/hr Q8 DAWIT Administration Levothyroxine Sodium 25 mcg 07/25/17 06:30 08/06/17 05:45 Synthroid PO 25 mcg DAILY@0630 DAWIT Administration Metoprolol Tartrate 25 mg 07/26/17 10:30 07/30/17 18:16 Lopressor PO Not Given BID DAWIT Midodrine 5 mg 08/01/17 14:00 08/05/17 17:27 Proamatine PO 5 mg TID DAWIT Administration Multivitamins 1 tab 08/02/17 10:15 08/05/17 10:46 Hexavitamin PO 1 tab DAILY DAWIT Administration Paricalcitol 2 mcg 08/06/17 10:00 Zemplar IV TTS DAWIT Tamsulosin HCl 0.4 mg 07/25/17 10:00 08/05/17 10:46 Flomax PO 0.4 mg DAILY DAWIT Administration - Patient Studies Lab Studies: Lab Studies 08/06/17 08/06/17 08/06/17 Range/Units 06:40 06:40 05:20 WBC 13.0 H (4.8-10.8) K/uL RBC 3.20 L (4.40-5.90) Mil/uL Hgb 9.0 L (12.0-18.0) g/dL Hct 28.2 L (35.0-51.0) % MCV 88.2 (80.0-94.0) fL MCH 28.0 (27.0-31.0) pg MCHC 31.8 L (33.0-37.0) g/dL RDW 17.7 H (11.5-14.5) % Plt Count 134 (130-400) K/uL MPV 9.7 (7.2-11.7) fL Neut % (Auto) 85.9 H (50.0-75.0) % Lymph % (Auto) 9.2 L (20.0-40.0) % [place] % (Auto) 4.0 (0.0-10.0) % Eos % (Auto) 0.5 (0.0-4.0) % Baso % (Auto) 0.4 (0.0-2.0) % Neut # 11.1 H (1.8-7.0) K/uL Lymph # 1.2 (1.0-4.3) K/uL [place]linger # 0.5 (0.0-0.8) K/uL Eos # 0.1 (0.0-0.7) K/uL Baso # 0.1 (0.0-0.2) K/uL Neutrophils % (Manual) 87 H (50-75) % Band Neutrophils % 1 (0-2) % Lymphocytes % (Manual) 7 L (20-40) % Monocytes % (Manual) 4 (0-10) % Eosinophils % (Manual) 1 (0-4) % Platelet Estimate Normal (NORMAL) Polychromasia Slight Hypochromasia (manual) Slight Anisocytosis (manual) Slight Target Cells Slight Tear Drop Cells Slight Ovalocytes Slight [place] Cells Slight Sodium 139 (132-148) mmol/L Potassium 3.5 L (3.6-5.2) mmol/L Chloride 102 (98-107) mmol/L Carbon Dioxide 22 (22-30) mmol/L Anion Gap 19 (10-20) BUN 79 H (9-20) mg/dL Creatinine 3.7 H (0.8-1.5) mg/dL Est GFR ( Amer) 19 Est GFR (Non-Af Amer) 16 POC Glucose (mg/dL) 130 H (65-110) mg/dL Random Glucose 95 (75-110) mg/dL Calcium 7.2 L (8.6-10.4) mg/dl Phosphorus 4.8 H (2.5-4.5) mg/dL Magnesium 2.0 (1.6-2.3) mg/dL Total Bilirubin 0.9 (0.2-1.3) mg/dL AST 62 H D (17-59) U/L ALT 202 H D (21-72) U/L Alkaline Phosphatase 141 H (38-126) U/L Total Protein 6.1 L (6.3-8.3) g/dL Albumin 2.5 L (3.5-5.0) g/dL Globulin 3.6 (2.2-3.9) gm/dL Albumin/Globulin Ratio 0.7 L (1.0-2.1) 08/06/17 08/05/17 08/05/17 Range/Units 00:09 17:55 11:28 WBC (4.8-10.8) K/uL RBC (4.40-5.90) Mil/uL Hgb (12.0-18.0) g/dL Hct (35.0-51.0) % MCV (80.0-94.0) fL MCH (27.0-31.0) pg MCHC (33.0-37.0) g/dL RDW (11.5-14.5) % Plt Count (130-400) K/uL MPV (7.2-11.7) fL Neut % (Auto) (50.0-75.0) % Lymph % (Auto) (20.0-40.0) % [place] % (Auto) (0.0-10.0) % Eos % (Auto) (0.0-4.0) % Baso % (Auto) (0.0-2.0) % Neut # (1.8-7.0) K/uL Lymph # (1.0-4.3) K/uL [place]linger # (0.0-0.8) K/uL Eos # (0.0-0.7) K/uL Baso # (0.0-0.2) K/uL Neutrophils % (Manual) (50-75) % Band Neutrophils % (0-2) % Lymphocytes % (Manual) (20-40) % Monocytes % (Manual) (0-10) % Eosinophils % (Manual) (0-4) % Platelet Estimate (NORMAL) Polychromasia Hypochromasia (manual) Anisocytosis (manual) Target Cells Tear Drop Cells Ovalocytes [place] Cells Sodium (132-148) mmol/L Potassium (3.6-5.2) mmol/L Chloride (98-107) mmol/L Carbon Dioxide (22-30) mmol/L Anion Gap (10-20) BUN (9-20) mg/dL Creatinine (0.8-1.5) mg/dL Est GFR ( Amer) Est GFR (Non-Af Amer) POC Glucose (mg/dL) 114 H 143 H 124 H (65-110) mg/dL Random Glucose (75-110) mg/dL Calcium (8.6-10.4) mg/dl Phosphorus (2.5-4.5) mg/dL Magnesium (1.6-2.3) mg/dL Total Bilirubin (0.2-1.3) mg/dL AST (17-59) U/L ALT (21-72) U/L Alkaline Phosphatase (38-126) U/L Total Protein (6.3-8.3) g/dL Albumin (3.5-5.0) g/dL Globulin (2.2-3.9) gm/dL Albumin/Globulin Ratio (1.0-2.1) Laboratory Results - last 24 hr 08/05/17 08/05/17 08/06/17 11:28 17:55 00:09 WBC RBC Hgb Hct MCV MCH MCHC RDW Plt Count MPV Neut % (Auto) Lymph % (Auto) [place] % (Auto) Eos % (Auto) Baso % (Auto) Neut # Lymph # [place] # Eos # Baso # Neutrophils % (Manual) Band Neutrophils % Lymphocytes % (Manual) Monocytes % (Manual) Eosinophils % (Manual) Platelet Estimate Polychromasia Hypochromasia (manual) Anisocytosis (manual) Target Cells Tear Drop Cells Ovalocytes Rosalie Cells Sodium Potassium Chloride Carbon Dioxide Anion Gap BUN Creatinine Est GFR ( Amer) Est GFR (Non-Af Amer) POC Glucose (mg/dL) 124 H 143 H 114 H Random Glucose Calcium Phosphorus Magnesium Total Bilirubin AST ALT Alkaline Phosphatase Total Protein Albumin Globulin Albumin/Globulin Ratio 08/06/17 08/06/17 08/06/17 05:20 06:40 06:40 WBC 13.0 H RBC 3.20 L Hgb 9.0 L Hct 28.2 L MCV 88.2 MCH 28.0 MCHC 31.8 L RDW 17.7 H Plt Count 134 MPV 9.7 Neut % (Auto) 85.9 H Lymph % (Auto) 9.2 L [place] % (Auto) 4.0 Eos % (Auto) 0.5 Baso % (Auto) 0.4 Neut # 11.1 H Lymph # 1.2 [place]linger # 0.5 Eos # 0.1 Baso # 0.1 Neutrophils % (Manual) 87 H Band Neutrophils % 1 Lymphocytes % (Manual) 7 L Monocytes % (Manual) 4 Eosinophils % (Manual) 1 Platelet Estimate Normal Polychromasia Slight Hypochromasia (manual) Slight Anisocytosis (manual) Slight Target Cells Slight Tear Drop Cells Slight Ovalocytes Slight Rosalie Cells Slight Sodium 139 Potassium 3.5 L Chloride 102 Carbon Dioxide 22 Anion Gap 19 BUN 79 H Creatinine 3.7 H Est GFR ( Amer) 19 Est GFR (Non-Af Amer) 16 POC Glucose (mg/dL) 130 H Random Glucose 95 Calcium 7.2 L Phosphorus 4.8 H Magnesium 2.0 Total Bilirubin 0.9 AST 62 H D ALT 202 H D Alkaline Phosphatase 141 H Total Protein 6.1 L Albumin 2.5 L Globulin 3.6 Albumin/Globulin Ratio 0.7 L Fingerstick Blood Sugar Results: 130 Review of Systems - Review of Systems Systems not reviewed;Unavailable: Altered Mental Status - Constitutional Constitutional: absent: Fever, Chills, Sweats, Weakness - Cardiovascular Cardiovascular: absent: Chest Pain, Irregular Heart Rhythm - Respiratory Respiratory: Dyspnea. absent: Cough - Gastrointestinal Gastrointestinal: absent: Abdominal Pain Assessment/Plan - Assessment and Plan (Free Text) Assessment: 82 y/o M with PMHx of CAD, HTN, CKD, dementia and obstructive uropathy requiring wise admitted 07/24 with lethargy and fever from the [facility]. Patient was transferred to the ICU 07/30 and received a permacath 08/01 now POD # 5. Plan: Patient can be transferred to med/surg Neuro: lethargic, dementia - tylenol 650 mg PO Q6 PRN pain Cardio: hypotensive secondary to sepsis: resolved, hx of CHF, CAD - EKG (07/26): 1st degree AV block, right axis deviation, possible anterolateral subendocardial injury - Echo (08/01/16): LVEF 65-70%, left atrial dilation, LVH - Dr. Lynn Thrasher consulted, help appreciated - aspirin chewable 81 mg PO QD - plavix 75 mg PO QD - holding hydralazine - hold lopressor - midodrine Pulm: lobar pneumonia - Saturating 100% on 5L NC - CXR (07/30): opacification of the mid to lower lung zones bilaterally with small bilateral pleural effusions - Respiratory alkalosis: 7.47/ pCO2 19/HCO3 - Arterial lactate (08/01): 1.4 Nephro: acute on chronic kidney disease, obstructive uropathy - BUN/Cr (08/02): BUN 61/3.5, improved - Dr. Peterson consulted, help appreciated - Dr. Parada consulted, help appreciated - r internal jugular permacath placed by surgery 08/01 - stop IV fluids - paricalcitol TTS (ordered by Nicholas) -Hemodialysis today GI: dysphagia, transaminitis: improving - LFTs (08/05): Tbili 0.9 / AST 100 / ALT 279 / ALP 164 - NGT - tube feeding nepro - consider PEG placement - Dr. Romero consulted, help appreciated - zetia 10 mg PO QD - HBsAg, HBsAb, HBcAb, HCV Ab all negative (07/31) - Abd U/s (08/01):suggested acalculous cholecystitis, hepatic steatosis, no obstructive uropathy, no definite hydronephrosis : BPH, urosepsis: resolved - Dr. Spakrs consulted, help appreciated - cystoscopy by Dr. Sparks cancalled - flomax 0.4 mg PO daily - finasteride 5 mg PO daily Endo: hypothyroidism - levothyroxine 25mcg PO daily Hematology: anemia, leukocytosis likely secondary to sepsis - Hgb (08/05): 8.8 - Dr. Peterson recommends Epogen 10,000u 3x weekly -Ferrlecit 125mg TTS - WBC (08/05): 14, worsening ID: urosepsis, possible pneumonia - urine cx (07/24): final culture grew klebsiella pneumoniae and enterococcus faecalis, both sensitive to ciprofloxacin - Dr. Cantu consulted, help appreciated - Code sepsis called in ICU (07/30) - Ciprofloxacin 200mg q12h -Flagyl 500mg q8h - blood cultures (07/30): final results show no growth - urine culures (07/29): final results show no growth - sputum culture (07/30): results pending Derm: bilateral heel wounds - Wound care consulted - vitamin C 500 mg PO BID - Multivitamin 1 tab PO QD PPX: - DVT: SCDs, restarted heparin - GI: pepcid 20mg IVP daily <Chip Urias - Last Filed: 08/06/17 16:58> CCU Objective - Vital Signs / Intake & Output Vital Signs (Last 4 hours): Vital Signs Temp Pulse Resp BP Pulse Ox 08/06/17 16:00 97 F L 91 H 18 99/54 L 98 08/06/17 15:00 89 21 99/57 L 99 08/06/17 14:00 88 20 101/54 L 98 08/06/17 13:00 89 21 99/57 L 97 Intake and Output (Last 8hrs): Intake & Output 08/06/17 08/06/17 08/06/17 06:59 14:59 22:59 Intake Total 780 680 120 Balance 780 680 120 Weight 183 lb 4 oz Intake: Intake, IV Amount 200 100 Left Wrist 200 100 Oral 100 Tube Feeding 480 480 120 Other 100 - Medications Active Medications: Active Medications Generic Name Dose Route Start Last Admin Trade Name Freq PRN Reason Stop Dose Admin Ascorbic Acid 500 mg 08/02/17 10:15 08/06/17 12:07 Vitamin C 500 Mg Tab PO 500 mg DAILY DAWIT Administration Aspirin 81 mg 08/05/17 10:15 08/06/17 12:12 Aspirin Chewable PO 81 mg DAILY DAWIT Administration Clopidogrel Bisulfate 75 mg 07/25/17 10:00 08/06/17 12:06 Plavix PO 75 mg DAILY DAWIT Administration Epoetin Jacobo 10,000 unit 08/06/17 10:00 08/06/17 10:28 Procrit SC 10,000 unit TTS DAWIT Administration Famotidine 20 mg 08/02/17 10:00 08/06/17 12:07 Pepcid PO 20 mg DAILY DAWIT Administration Ferric Sodium Gluconate Complex 125 mg 08/06/17 10:00 08/06/17 10:27 Ferrlecit IVPB 08/14/17 10:01 125 mg TTS DAWIT Administration Finasteride 5 mg 07/25/17 10:00 08/06/17 12:07 Proscar PO 5 mg DAILY DAWIT Administration Heparin Sodium (Porcine) 5,000 units 07/30/17 14:30 08/06/17 14:53 Heparin SC 5,000 units Q12H DAWIT Administration Hydralazine HCl 25 mg 07/24/17 18:00 07/29/17 17:38 Apresoline PO Not Given BID DAWIT Ciprofloxacin 100 mls @ 67 mls/hr 07/29/17 13:30 08/06/17 14:51 Cipro 200mg/100ml D5w IVPB 67 mls/hr Q12H DAWIT Administration Metronidazole 500 mg in 100 mls @ 100 mls/hr 08/02/17 14:00 08/06/17 14:53 Flagyl IVPB 100 mls/hr Q8 DAWIT Administration Levothyroxine Sodium 25 mcg 07/25/17 06:30 08/06/17 05:45 Synthroid PO 25 mcg DAILY@0630 DAWIT Administration Metoprolol Tartrate 25 mg 07/26/17 10:30 07/30/17 18:16 Lopressor PO Not Given BID DAWIT Midodrine 5 mg 08/01/17 14:00 08/06/17 14:55 Proamatine PO 5 mg TID DAWIT Administration Multivitamins 1 tab 08/02/17 10:15 08/06/17 12:09 Hexavitamin PO 1 tab DAILY DAWIT Administration Paricalcitol 2 mcg 08/06/17 10:00 08/06/17 10:28 Zemplar IV 2 mcg TTS DAWIT Administration Tamsulosin HCl 0.4 mg 07/25/17 10:00 08/06/17 12:06 Flomax PO 0.4 mg DAILY DAWIT Administration - Patient Studies Lab Studies: Lab Studies 08/06/17 08/06/17 08/06/17 Range/Units 11: 06:40 06:40 WBC 13.0 H (4.8-10.8) K/uL RBC 3.20 L (4.40-5.90) Mil/uL Hgb 9.0 L (12.0-18.0) g/dL Hct 28.2 L (35.0-51.0) % MCV 88.2 (80.0-94.0) fL MCH 28.0 (27.0-31.0) pg MCHC 31.8 L (33.0-37.0) g/dL RDW 17.7 H (11.5-14.5) % Plt Count 134 (130-400) K/uL MPV 9.7 (7.2-11.7) fL Neut % (Auto) 85.9 H (50.0-75.0) % Lymph % (Auto) 9.2 L (20.0-40.0) % [place] % (Auto) 4.0 (0.0-10.0) % Eos % (Auto) 0.5 (0.0-4.0) % Baso % (Auto) 0.4 (0.0-2.0) % Neut # 11.1 H (1.8-7.0) K/uL Lymph # 1.2 (1.0-4.3) K/uL [place] # 0.5 (0.0-0.8) K/uL Eos # 0.1 (0.0-0.7) K/uL Baso # 0.1 (0.0-0.2) K/uL Neutrophils % (Manual) 87 H (50-75) % Band Neutrophils % 1 (0-2) % Lymphocytes % (Manual) 7 L (20-40) % Monocytes % (Manual) 4 (0-10) % Eosinophils % (Manual) 1 (0-4) % Platelet Estimate Normal (NORMAL) Polychromasia Slight Hypochromasia (manual) Slight Anisocytosis (manual) Slight Target Cells Slight Tear Drop Cells Slight Ovalocytes Slight Rosalie Cells Slight Sodium 139 (132-148) mmol/L Potassium 3.5 L (3.6-5.2) mmol/L Chloride 102 (98-107) mmol/L Carbon Dioxide 22 (22-30) mmol/L Anion Gap 19 (10-20) BUN 79 H (9-20) mg/dL Creatinine 3.7 H (0.8-1.5) mg/dL Est GFR ( Amer) 19 Est GFR (Non-Af Amer) 16 POC Glucose (mg/dL) 112 H (65-110) mg/dL Random Glucose 95 (75-110) mg/dL Calcium 7.2 L (8.6-10.4) mg/dl Phosphorus 4.8 H (2.5-4.5) mg/dL Magnesium 2.0 (1.6-2.3) mg/dL Total Bilirubin 0.9 (0.2-1.3) mg/dL AST 62 H D (17-59) U/L ALT 202 H D (21-72) U/L Alkaline Phosphatase 141 H (38-126) U/L Total Protein 6.1 L (6.3-8.3) g/dL Albumin 2.5 L (3.5-5.0) g/dL Globulin 3.6 (2.2-3.9) gm/dL Albumin/Globulin Ratio 0.7 L (1.0-2.1) 08/06/17 08/06/17 08/05/17 Range/Units 05:20 00:09 17:55 WBC (4.8-10.8) K/uL RBC (4.40-5.90) Mil/uL Hgb (12.0-18.0) g/dL Hct (35.0-51.0) % MCV (80.0-94.0) fL MCH (27.0-31.0) pg MCHC (33.0-37.0) g/dL RDW (11.5-14.5) % Plt Count (130-400) K/uL MPV (7.2-11.7) fL Neut % (Auto) (50.0-75.0) % Lymph % (Auto) (20.0-40.0) % [place] % (Auto) (0.0-10.0) % Eos % (Auto) (0.0-4.0) % Baso % (Auto) (0.0-2.0) % Neut # (1.8-7.0) K/uL Lymph # (1.0-4.3) K/uL [place] # (0.0-0.8) K/uL Eos # (0.0-0.7) K/uL Baso # (0.0-0.2) K/uL Neutrophils % (Manual) (50-75) % Band Neutrophils % (0-2) % Lymphocytes % (Manual) (20-40) % Monocytes % (Manual) (0-10) % Eosinophils % (Manual) (0-4) % Platelet Estimate (NORMAL) Polychromasia Hypochromasia (manual) Anisocytosis (manual) Target Cells Tear Drop Cells Ovalocytes Rosalie Cells Sodium (132-148) mmol/L Potassium (3.6-5.2) mmol/L Chloride (98-107) mmol/L Carbon Dioxide (22-30) mmol/L Anion Gap (10-20) BUN (9-20) mg/dL Creatinine (0.8-1.5) mg/dL Est GFR ( Amer) Est GFR (Non-Af Amer) POC Glucose (mg/dL) 130 H 114 H 143 H (65-110) mg/dL Random Glucose (75-110) mg/dL Calcium (8.6-10.4) mg/dl Phosphorus (2.5-4.5) mg/dL Magnesium (1.6-2.3) mg/dL Total Bilirubin (0.2-1.3) mg/dL AST (17-59) U/L ALT (21-72) U/L Alkaline Phosphatase (38-126) U/L Total Protein (6.3-8.3) g/dL Albumin (3.5-5.0) g/dL Globulin (2.2-3.9) gm/dL Albumin/Globulin Ratio (1.0-2.1) Laboratory Results - last 24 hr 08/05/17 08/06/17 08/06/17 17:55 00:09 05:20 WBC RBC Hgb Hct MCV MCH MCHC RDW Plt Count MPV Neut % (Auto) Lymph % (Auto) [place] % (Auto) Eos % (Auto) Baso % (Auto) Neut # Lymph # [place] # Eos # Baso # Neutrophils % (Manual) Band Neutrophils % Lymphocytes % (Manual) Monocytes % (Manual) Eosinophils % (Manual) Platelet Estimate Polychromasia Hypochromasia (manual) Anisocytosis (manual) Target Cells Tear Drop Cells Ovalocytes Rosalie Cells Sodium Potassium Chloride Carbon Dioxide Anion Gap BUN Creatinine Est GFR ( Amer) Est GFR (Non-Af Amer) POC Glucose (mg/dL) 143 H 114 H 130 H Random Glucose Calcium Phosphorus Magnesium Total Bilirubin AST ALT Alkaline Phosphatase Total Protein Albumin Globulin Albumin/Globulin Ratio 08/06/17 08/06/1717 06:40 06:40 11:26 WBC 13.0 H RBC 3.20 L Hgb 9.0 L Hct 28.2 L MCV 88.2 MCH 28.0 MCHC 31.8 L RDW 17.7 H Plt Count 134 MPV 9.7 Neut % (Auto) 85.9 H Lymph % (Auto) 9.2 L [place] % (Auto) 4.0 Eos % (Auto) 0.5 Baso % (Auto) 0.4 Neut # 11.1 H Lymph # 1.2 [place] # 0.5 Eos # 0.1 Baso # 0.1 Neutrophils % (Manual) 87 H Band Neutrophils % 1 Lymphocytes % (Manual) 7 L Monocytes % (Manual) 4 Eosinophils % (Manual) 1 Platelet Estimate Normal Polychromasia Slight Hypochromasia (manual) Slight Anisocytosis (manual) Slight Target Cells Slight Tear Drop Cells Slight Ovalocytes Slight [place] Cells Slight Sodium 139 Potassium 3.5 L Chloride 102 Carbon Dioxide 22 Anion Gap 19 BUN 79 H Creatinine 3.7 H Est GFR ( Amer) 19 Est GFR (Non-Af Amer) 16 POC Glucose (mg/dL) 112 H Random Glucose 95 Calcium 7.2 L Phosphorus 4.8 H Magnesium 2.0 Total Bilirubin 0.9 AST 62 H D ALT 202 H D Alkaline Phosphatase 141 H Total Protein 6.1 L Albumin 2.5 L Globulin 3.6 Albumin/Globulin Ratio 0.7 L Attending/Attestation - Attestation I have personally seen and examined this patient.: Yes I have fully participated in the care of the patient.: Yes I have reviewed all pertinent clinical information: Yes Notes (Text): 08/06/17 16:57 Patient seen and examined in the intensive care unit. Case discussed with house staff in the morning rounds. Clinically condition much improved Continue hemodialysis Continue antibiotics per infectious disease Stable for transfer to floor
[2017-08-06] MEDS: Ferric Sodium Gluconat Complex 62.5 mg/5 ml Vial IVPB SCH (10:27)
[2017-08-06] MEDS: Paricalcitol 2 mcg/ml Inj IV SCH (10:28)
--- NOTE | 2017-08-06 11:59 | CP.PCM.PN ---
Subjective - Date & Time of Evaluation Date of Evaluation: 08/06/17 Time of Evaluation: 07:00 - Subjective Subjective: lethargic responsive NAD Objective - Vital Signs/Intake and Output Vital Signs (last 24 hours): Temp Pulse Resp BP Pulse Ox 97.4 F L 97 H 19 103/61 96 08/06/17 08:45 08/06/17 11:45 08/06/17 11:00 08/06/17 11:45 08/06/17 11:00 Intake and Output: 08/06/17 08/06/17 06:59 18:59 Intake Total 1150 400 Balance 1150 400 - Medications Medications: Current Medications Ascorbic Acid (Vitamin C 500 Mg Tab) 500 mg PO DAILY [facility] Last Admin: 08/05/17 10:47 Dose: 500 mg Aspirin (Aspirin Chewable) 81 mg PO DAILY [facility] Last Admin: 08/05/17 10:46 Dose: 81 mg Clopidogrel Bisulfate (Plavix) 75 mg PO DAILY [facility] Last Admin: 08/05/17 10:46 Dose: 75 mg Epoetin Jacobo (Procrit) 10,000 unit SC TTS [facility] Last Admin: 08/06/17 10:28 Dose: 10,000 unit Famotidine (Pepcid) 20 mg PO DAILY [facility] Last Admin: 08/05/17 10:46 Dose: 20 mg Ferric Sodium Gluconate Complex (Ferrlecit) 125 mg IVPB TTS [facility] Stop: 08/14/17 10:01 Last Admin: 08/06/17 10:27 Dose: 125 mg Finasteride (Proscar) 5 mg PO DAILY [facility] Last Admin: 08/05/17 10:46 Dose: 5 mg Heparin Sodium (Porcine) (Heparin) 5,000 units SC Q12H [facility] Last Admin: 08/06/17 03:30 Dose: 5,000 units Hydralazine HCl (Apresoline) 25 mg PO BID [facility] Last Admin: 07/29/17 17:38 Dose: Not Given Ciprofloxacin (Cipro 200mg/100ml D5w) 100 mls @ 67 mls/hr IVPB Q12H [facility] Last Admin: 08/06/17 00:50 Dose: 67 mls/hr Metronidazole (Flagyl) 500 mg in 100 mls @ 100 mls/hr IVPB Q8 [facility] Last Admin: 08/06/17 05:20 Dose: 100 mls/hr Levothyroxine Sodium (Synthroid) 25 mcg PO DAILY@0630 [facility] Last Admin: 08/06/17 05:45 Dose: 25 mcg Metoprolol Tartrate (Lopressor) 25 mg PO BID [facility] Last Admin: 07/30/17 18:16 Dose: Not Given Midodrine (Proamatine) 5 mg PO TID [facility] Last Admin: 08/05/17 17:27 Dose: 5 mg Multivitamins (Hexavitamin) 1 tab PO DAILY [facility] Last Admin: 08/05/17 10:46 Dose: 1 tab Paricalcitol (Zemplar) 2 mcg IV TTS [facility] Last Admin: 08/06/17 10:28 Dose: 2 mcg Tamsulosin HCl (Flomax) 0.4 mg PO DAILY [facility] Last Admin: 08/05/17 10:46 Dose: 0.4 mg - Labs Labs: 08/06/17 06:40 08/06/17 06:40 PT 16.0 SECONDS (9.7-12.2) H 07/30/17 12:16 INR 1.4 07/30/17 12:16 APTT 30 SECONDS (21-34) 07/30/17 08:54 - Constitutional Appears: Non-toxic - Head Exam Head Exam: NORMOCEPHALIC - Eye Exam Eye Exam: EOMI Pupil Exam: NORMAL ACCOMODATION - ENT Exam ENT Exam: Mucous Membranes Dry - Neck Exam Neck Exam: absent: Lymphadenopathy - Respiratory Exam Respiratory Exam: Decreased Breath Sounds - Cardiovascular Exam Cardiovascular Exam: REGULAR RHYTHM, +S1, +S2 - GI/Abdominal Exam GI & Abdominal Exam: Soft, Diminished Bowel Sounds - Rectal Exam Rectal Exam: Deferred Assessment and Plan (1) Fever Status: Acute (2) Leukocytosis Status: Acute (3) UTI (urinary tract infection) Status: Acute (4) Acute renal failure Status: Acute (5) Generalized weakness Status: Acute (6) Hyperkalemia Status: Acute (7) Troponin level elevated Status: Acute (8) UTI (urinary tract infection) due to Enterococcus Status: Acute (9) UTI (urinary tract infection) due to Enterococcus Status: Acute (10) UTI due to Klebsiella species Status: Acute (11) UTI due to Klebsiella species Status: Acute
[2017-08-06] MEDS: Multiple Vitamins Tab PO SCH (12:09)
--- NOTE | 2017-08-06 12:18 | CP.PCM.PN ---
Subjective - Date & Time of Evaluation Date of Evaluation: 08/06/17 Time of Evaluation: 12:17 - Subjective Subjective: confused.getting hd. Objective - Vital Signs/Intake and Output Vital Signs (last 24 hours): Temp Pulse Resp BP Pulse Ox 97.4 F L 96 H 19 105/61 96 08/06/17 08:45 08/06/17 12:04 08/06/17 11:00 08/06/17 12:04 08/06/17 11:00 Intake and Output: 08/06/17 08/06/17 06:59 18:59 Intake Total 1150 400 Balance 1150 400 - Medications Medications: Current Medications Ascorbic Acid (Vitamin C 500 Mg Tab) 500 mg PO DAILY [facility] Last Admin: 08/06/17 12:07 Dose: 500 mg Aspirin (Aspirin Chewable) 81 mg PO DAILY [facility] Last Admin: 08/06/17 12:12 Dose: 81 mg Clopidogrel Bisulfate (Plavix) 75 mg PO DAILY [facility] Last Admin: 08/06/17 12:06 Dose: 75 mg Epoetin Jacobo (Procrit) 10,000 unit SC TTS [facility] Last Admin: 08/06/17 10:28 Dose: 10,000 unit Famotidine (Pepcid) 20 mg PO DAILY [facility] Last Admin: 08/06/17 12:07 Dose: 20 mg Ferric Sodium Gluconate Complex (Ferrlecit) 125 mg IVPB TTS [facility] Stop: 08/14/17 10:01 Last Admin: 08/06/17 10:27 Dose: 125 mg Finasteride (Proscar) 5 mg PO DAILY [facility] Last Admin: 08/06/17 12:07 Dose: 5 mg Heparin Sodium (Porcine) (Heparin) 5,000 units SC Q12H [facility] Last Admin: 08/06/17 03:30 Dose: 5,000 units Hydralazine HCl (Apresoline) 25 mg PO BID [facility] Last Admin: 07/29/17 17:38 Dose: Not Given Ciprofloxacin (Cipro 200mg/100ml D5w) 100 mls @ 67 mls/hr IVPB Q12H [facility] Last Admin: 08/06/17 00:50 Dose: 67 mls/hr Metronidazole (Flagyl) 500 mg in 100 mls @ 100 mls/hr IVPB Q8 [facility] Last Admin: 08/06/17 05:20 Dose: 100 mls/hr Levothyroxine Sodium (Synthroid) 25 mcg PO DAILY@0630 [facility] Last Admin: 08/06/17 05:45 Dose: 25 mcg Metoprolol Tartrate (Lopressor) 25 mg PO BID [facility] Last Admin: 07/30/17 18:16 Dose: Not Given Midodrine (Proamatine) 5 mg PO TID [facility] Last Admin: 08/06/17 12:08 Dose: 5 mg Multivitamins (Hexavitamin) 1 tab PO DAILY [facility] Last Admin: 08/06/17 12:09 Dose: 1 tab Paricalcitol (Zemplar) 2 mcg IV TTS [facility] Last Admin: 08/06/17 10:28 Dose: 2 mcg Tamsulosin HCl (Flomax) 0.4 mg PO DAILY [facility] Last Admin: 08/06/17 12:06 Dose: 0.4 mg - Labs Labs: 08/06/17 06:40 08/06/17 06:40 PT 16.0 SECONDS (9.7-12.2) H 07/30/17 12:16 INR 1.4 07/30/17 12:16 APTT 30 SECONDS (21-34) 07/30/17 08:54 - Constitutional Appears: Chronically Ill - Head Exam Head Exam: NORMOCEPHALIC - Respiratory Exam Respiratory Exam: Clear to Ausculation Bilateral - Cardiovascular Exam Cardiovascular Exam: REGULAR RHYTHM - GI/Abdominal Exam GI & Abdominal Exam: Soft Assessment and Plan - Assessment and Plan (Free Text) Assessment: septic,confused. diss with family.
--- NOTE | 2017-08-06 23:13 | CP.PCM.PN ---
Subjective - Date & Time of Evaluation Date of Evaluation: 08/06/17 Time of Evaluation: 20:00 - Subjective Subjective: Pt seen and evaluated in ICU, is talking more alert, wants to eat, On NG tube for feeding, his kidney function is improved Objective - Vital Signs/Intake and Output Vital Signs (last 24 hours): Temp Pulse Resp BP Pulse Ox 97.5 F L 91 H 18 113/56 L 96 08/06/17 20:00 08/06/17 21:00 08/06/17 21:00 08/06/17 20:57 08/06/17 21:00 Intake and Output: 08/06/17 08/07/17 18:59 06:59 Intake Total 1020 290 Balance 1020 290 - Medications Medications: Current Medications Ascorbic Acid (Vitamin C 500 Mg Tab) 500 mg PO DAILY [facility] Last Admin: 08/06/17 12:07 Dose: 500 mg Aspirin (Aspirin Chewable) 81 mg PO DAILY [facility] Last Admin: 08/06/17 12:12 Dose: 81 mg Clopidogrel Bisulfate (Plavix) 75 mg PO DAILY [facility] Last Admin: 08/06/17 12:06 Dose: 75 mg Epoetin Jacobo (Procrit) 10,000 unit SC TTS [facility] Last Admin: 08/06/17 10:28 Dose: 10,000 unit Famotidine (Pepcid) 20 mg PO DAILY [facility] Last Admin: 08/06/17 12:07 Dose: 20 mg Ferric Sodium Gluconate Complex (Ferrlecit) 125 mg IVPB TTS [facility] Stop: 08/14/17 10:01 Last Admin: 08/06/17 10:27 Dose: 125 mg Finasteride (Proscar) 5 mg PO DAILY [facility] Last Admin: 08/06/17 12:07 Dose: 5 mg Heparin Sodium (Porcine) (Heparin) 5,000 units SC Q12H [facility] Last Admin: 08/06/17 14:53 Dose: 5,000 units Hydralazine HCl (Apresoline) 25 mg PO BID [facility] Last Admin: 07/29/17 17:38 Dose: Not Given Ciprofloxacin (Cipro 200mg/100ml D5w) 100 mls @ 67 mls/hr IVPB Q12H [facility] Last Admin: 08/06/17 14:51 Dose: 67 mls/hr Metronidazole (Flagyl) 500 mg in 100 mls @ 100 mls/hr IVPB Q8 [facility] Last Admin: 08/06/17 21:37 Dose: 100 mls/hr Levothyroxine Sodium (Synthroid) 25 mcg PO DAILY@0630 [facility] Last Admin: 08/06/17 05:45 Dose: 25 mcg Metoprolol Tartrate (Lopressor) 25 mg PO BID [facility] Last Admin: 07/30/17 18:16 Dose: Not Given Midodrine (Proamatine) 5 mg PO TID [facility] Last Admin: 08/06/17 17:20 Dose: 5 mg Multivitamins (Hexavitamin) 1 tab PO DAILY [facility] Last Admin: 08/06/17 12:09 Dose: 1 tab Paricalcitol (Zemplar) 2 mcg IV TTS [facility] Last Admin: 08/06/17 10:28 Dose: 2 mcg Tamsulosin HCl (Flomax) 0.4 mg PO DAILY [facility] Last Admin: 08/06/17 12:06 Dose: 0.4 mg - Labs Labs: 08/06/17 06:40 08/06/17 06:40 PT 16.0 SECONDS (9.7-12.2) H 07/30/17 12:16 INR 1.4 07/30/17 12:16 APTT 30 SECONDS (21-34) 07/30/17 08:54 - Constitutional Appears: No Acute Distress, Confused, Other (AAox2) - Respiratory Exam Respiratory Exam: Clear to Ausculation Bilateral, NORMAL BREATHING PATTERN - Cardiovascular Exam Cardiovascular Exam: REGULAR RHYTHM, +S1, +S2. absent: Murmur - GI/Abdominal Exam GI & Abdominal Exam: Soft, Normal Bowel Sounds. absent: Tenderness Assessment and Plan (1) Fever Status: Acute (2) Leukocytosis Status: Acute (3) UTI (urinary tract infection) Status: Acute (4) Leg ulcer Status: Acute (5) Toxic metabolic encephalopathy Status: Acute
[2017-08-07] MEDS: Ciprofloxacin 200mg/100ml D5W 100 ML IVPB SCH ×2 (01:44→12:32)
[2017-08-07] MEDS: metroNIDAZOLE IV 500 mg/100 ml 500 MG/100 ML BAG IVPB SCH ×2 (05:15→14:02)
[2017-08-07] MEDS: Levothyroxine 25 MCG TAB PO SCH (06:15)
[2017-08-07 06:30] LABS: BASO # 0.1 K/uL (0.0-0.2); BASO % 0.4 % (0.0-2.0); EOS # 0.1 K/uL (0.0-0.7); EOS % 0.9 % (0.0-4.0); HEMATOCRIT 27.4 % (35.0-51.0); LYMPH # 1.2 K/uL (1.0-4.3); LYMPH % 8.8 % (20.0-40.0); MEAN CELL VOLUME 87.7 fL (80.0-94.0); MEAN CORPUSCULAR HEMOGLOBIN 27.9 pg (27.0-31.0); MEAN CORPUSCULAR HGB CONC 31.8 g/dL (33.0-37.0); MEAN PLATELET VOLUME 9.6 fL (7.2-11.7); MONO # 0.7 K/uL (0.0-0.8); MONO % 4.6 % (0.0-10.0); NRBC % 0.1 % (0.0-2.0); PLATELET COUNT 147 K/uL (130-400); RED CELL DISTRIBUTION WIDTH 17.8 % (11.5-14.5); WHITE BLOOD COUNT 14.1 K/uL (4.8-10.8)
[2017-08-07 07:15] LABS: ALB/GLOB RATIO 0.7 (1.0-2.1); BILIRUBIN,TOTAL 0.7 mg/dL (0.2-1.3); CALCIUM 7.3 mg/dl (8.6-10.4); PHOSPHOROUS 3.7 mg/dL (2.5-4.5); POTASSIUM 3.3 mmol/L (3.6-5.2)
[2017-08-07 08:27] LABS: EOSINOPHIL 1 % (0-4); NEUTROPHIL 86 % (50-75); TOTAL CELLS COUNTED 100
[2017-08-07] MEDS ORDERED: Potassium Chloride 20 mEq/15 ml LIQ UD PO ONE (09:00)
[2017-08-07] MEDS: Multiple Vitamins Tab PO SCH (09:38)
--- NOTE | 2017-08-07 10:19 | PN ---
FOLLOWUP RENAL CONSULTATION LOCATION: The patient is located in ICU, bed 16. REQUESTING PHYSICIAN: Dr. Daniel Coyle. REASON FOR FOLLOWUP: Acute renal failure, chronic kidney disease versus end-stage renal disease, continuation of hemodialysis. HISTORY OF PRESENT ILLNESS: Mr. Cunningham is an 82-year-old elderly -Citizen Of [place] male with a past medical history significant for longstanding hypertension; coronary artery disease, status post CABG; CHF; chronic kidney disease, stage IV, tophaceous gout; multiple falls who was recently admitted to [facility] on May 27 and subsequently treated for rhabdomyolysis and discharged to [facility] on 06/06, now the patient was admitted on 07/24/2017 with altered mental status and fever and the patient is being treated for urosepsis and worsening renal function, status post code sepsis and then transferred to ICU on pressors, initially subsequently off pressors. The patient was started on hemodialysis for worsening renal function. The patient was seen and examined during dialysis this morning and UF goal is about 500 mL with net UF is 0. The patient is feeling slightly better, still somewhat confused, not in distress. Denies any chest pain, palpitation. PHYSICAL EXAMINATION: GENERAL: Mr. Cunningham is an 82-year-old elderly -Citizen Of [place] male, moderately built, moderately nourished, not in acute distress. VITAL SIGNS: As follows this morning; blood pressure 105/58, pulse 93, respirations about 18 and temperature 97.4. Height 6 feet 3 inches and weight is 183 pounds. HEENT: Pupils normal, reactive to light and accommodation. Conjunctivae pink. Sclerae anicteric. Tongue is moist and trachea is midline. LUNGS: Symmetric on both sides. Bilateral breath sounds present. Occasional basal crackles present. CVS: [place] at the fifth intercostal space, midclavicular line. S1 and S2 audible. No murmur or gallop. The patient has a midsternal scar present from the previous CABG. ABDOMEN: Normal in appearance, soft, tympanic. No guarding. No rigidity. NO hepatosplenomegaly. [employer]NA[employer]: The patient is alert, awake and oriented x1 to 2. Sensory and motor system is within normal limits. EXTREMITIES: No cyanosis, no clubbing, no edema. MEDICATIONS: His current medications include as follows; aspirin 81 mg daily, Cipro 200 mg IV q.12 hours, Ferrlecit 125 mg 3 times a week, Flagyl 500 mg q.8 hours, Flomax 0.4 mg daily, subcu heparin 5000 q.12 hours, multivitamin 1 tablet daily, Pepcid 20 mg p.o. daily, Plavix 75 mg daily, midodrine 5 mg p.o. t.i.d., Procrit 10,000 units 3 times a week, Proscar 5 mg p.o. daily, Synthroid 25 mcg daily, vitamin C 500 mg p.o. daily and Zemplar 2 mcg IV 3 times a week. LABORATORY: Include as follows, as of 08/06/2017; WBC 13, hemoglobin is 9, hematocrit is 28.2, platelets 134. Sodium 139, potassium 3.5, chloride 102, CO2 of 22, BUN 79, creatinine 3.7, glucose is 95 and calcium 7.2 and phosphorus 4.8, magnesium 2, total bili 0.9, AST 62, ALT 202, alkaline phosphatase 141, total protein 6.1, albumin is 2.5. ASSESSMENT: In summary, Mr. Cunningham is an 82-year-old elderly -Citizen Of [place] male with history of longstanding hypertension; hyperlipidemia; coronary artery disease, status post coronary artery bypass grafting; tophaceous gout; congestive heart failure, chronic kidney disease, stage IV was admitted with altered mental status and fever, being treated for possible urosepsis, status post code sepsis, hypotension and abnormal LFTs, started on hemodialysis for worsening renal function and altered mental status. 1. Renal failure, acute on chronic kidney disease versus progression of his chronic kidney disease due to end-stage renal disease. 2. Status post sepsis. 3. Anemia. 4. Congestive heart failure. 5. Pneumonia. PLAN: Continue hemodialysis 3 times a week, Saturday, , Saturday and continue antibiotics as per ID recommendations. Continue NG tube feeding as tolerated and I did once as the patient tolerates. we will follow with you. Thank you for allowing me to participate in your patient's care. Overall prognosis is guarded and case discussed with the engraver automatic Dr. Leonidas White, in rounds this morning. Hernan Peterson MD
--- NOTE | 2017-08-07 13:55 | PN ---
LOCATION: [facility], bed A. SUBJECTIVE: This is an 82-year-old male, seen and examined early today, appears to be more awake and alert, NG tube is still in place but . The patient is still on NG tube feeding process. No reported active bleeding and no reported nausea or vomiting. Most recent lab results showed 14.1, hemoglobin of 8.7, hematocrit of 27.4, but normal platelet count with potassium of 3.3, increased BUN to 59, creatinine of 2.9, blood glucose level elevated to 130 with normal AST, ALT went down to 161 with low albumin of 2.4, low total protein 6.0. PHYSICAL EXAMINATION: GENERAL: An 82-year-old male. VITAL SIGNS: Afebrile with pulse of 94, respiratory rate of 20-22, blood pressure of 98/58. HEENT: Showed pale dry oral mucoid membrane, nonicteric sclerae. LUNGS: Few scattered crepitations and decreased air entry at bases. HEART: Positive S1 and S2. ABDOMEN: Soft, bowel sounds are present. No mass or organomegaly. No rebound tenderness or guarding. EXTREMITIES: Without edema, clubbing or cyanosis but evidence of muscle wasting syndrome. NEUROLOGIC: No reported new neurological deficits, sensory or motor. IMPRESSION: 1. Malnutrition with hypoalbuminemia. 2. Failure to thrive. 3. Elevated liver function test, most likely secondary to right-sided heart failure and/or any infectious process including his aspiration pneumonia. 4. Pleural effusion bilaterally with pneumonia by recent history. 6. Acute renal failure. 7. Anemia. The patient is a candidate for percutaneous endoscopic gastrostomy insertion. SUGGESTIONS: 1. Continue current management. 2. Repeat PT and PTT. 3. Continue NG tube feeding in the meantime until PEG tube is to be scheduled. 4. Correct any underlying electrolyte imbalance including his hypokalemia. 5. Peripheral persistent hyperalimentation. 6. Further recommendation to follow. Katia Pardo MD cc: Katia Pardo MD
--- NOTE | 2017-08-07 18:01 | CP.PCM.PN ---
Subjective - Date & Time of Evaluation Date of Evaluation: 08/07/17 Time of Evaluation: 10:00 - Subjective Subjective: alert confused asking for water NGT in place NAD Objective - Vital Signs/Intake and Output Vital Signs (last 24 hours): Temp Pulse Resp BP Pulse Ox 97.4 F L 89 20 96/59 L 93 L 08/07/17 15:00 08/07/17 15:00 08/07/17 15:00 08/07/17 15:00 08/07/17 15:00 Intake and Output: 08/07/17 08/07/17 06:59 18:59 Intake Total 970 680 Balance 970 680 - Medications Medications: Current Medications Ascorbic Acid (Vitamin C 500 Mg Tab) 500 mg PO DAILY [facility] Last Admin: 08/07/17 09:38 Dose: 500 mg Aspirin (Aspirin Chewable) 81 mg PO DAILY [facility] Last Admin: 08/07/17 09:38 Dose: 81 mg Clopidogrel Bisulfate (Plavix) 75 mg PO DAILY [facility] Last Admin: 08/07/17 09:38 Dose: 75 mg Epoetin Jacobo (Procrit) 10,000 unit SC TTS [facility] Last Admin: 08/06/17 10:28 Dose: 10,000 unit Famotidine (Pepcid) 20 mg PO DAILY [facility] Last Admin: 08/07/17 09:38 Dose: 20 mg Ferric Sodium Gluconate Complex (Ferrlecit) 125 mg IVPB TTS [facility] Stop: 08/14/17 10:01 Last Admin: 08/06/17 10:27 Dose: 125 mg Finasteride (Proscar) 5 mg PO DAILY [facility] Last Admin: 08/07/17 09:36 Dose: 5 mg Heparin Sodium (Porcine) (Heparin) 5,000 units SC Q12H [facility] Last Admin: 08/07/17 14:02 Dose: 5,000 units Hydralazine HCl (Apresoline) 25 mg PO BID [facility] Last Admin: 07/29/17 17:38 Dose: Not Given Ciprofloxacin (Cipro 200mg/100ml D5w) 100 mls @ 67 mls/hr IVPB Q12H [facility] Last Admin: 08/07/17 12:32 Dose: 67 mls/hr Levothyroxine Sodium (Synthroid) 25 mcg PO DAILY@0630 [facility] Last Admin: 08/07/17 06:15 Dose: 25 mcg Metoprolol Tartrate (Lopressor) 25 mg PO BID [facility] Last Admin: 07/30/17 18:16 Dose: Not Given Midodrine (Proamatine) 5 mg PO TID [facility] Last Admin: 08/07/17 14:02 Dose: 5 mg Multivitamins (Hexavitamin) 1 tab PO DAILY [facility] Last Admin: 08/07/17 09:38 Dose: 1 tab Paricalcitol (Zemplar) 2 mcg IV TTS [facility] Last Admin: 08/06/17 10:28 Dose: 2 mcg Tamsulosin HCl (Flomax) 0.4 mg PO DAILY [facility] Last Admin: 08/07/17 09:38 Dose: 0.4 mg - Labs Labs: 08/07/17 06:10 08/07/17 06:10 PT 16.0 SECONDS (9.7-12.2) H 07/30/17 12:16 INR 1.4 07/30/17 12:16 APTT 30 SECONDS (21-34) 07/30/17 08:54 - Constitutional Appears: Non-toxic, Chronically Ill - Head Exam Head Exam: NORMOCEPHALIC - Eye Exam Eye Exam: PERRL - ENT Exam ENT Exam: Mucous Membranes Dry - Neck Exam Neck Exam: absent: Lymphadenopathy - Respiratory Exam Respiratory Exam: Decreased Breath Sounds - Cardiovascular Exam Cardiovascular Exam: REGULAR RHYTHM - GI/Abdominal Exam GI & Abdominal Exam: Distended, Soft - Rectal Exam Rectal Exam: Deferred - Exam Exam: NORMAL INSPECTION Assessment and Plan (1) Fever Status: Acute (2) Leukocytosis Status: Acute (3) UTI (urinary tract infection) Status: Acute (4) Acute renal failure Status: Acute (5) Generalized weakness Status: Acute (6) Hyperkalemia Status: Acute (7) Troponin level elevated Status: Acute (8) UTI (urinary tract infection) due to Enterococcus Status: Acute (9) UTI (urinary tract infection) due to Enterococcus Status: Acute (10) UTI due to Klebsiella species Status: Acute (11) UTI due to Klebsiella species Status: Acute
--- NOTE | 2017-08-07 19:04 | CP.PCM.PN ---
Subjective - Date & Time of Evaluation Date of Evaluation: 08/07/17 Time of Evaluation: 19:03 - Subjective Subjective: pt is seen and examined, follow up consult is dictated #[id number] for hd in am Objective - Vital Signs/Intake and Output Vital Signs (last 24 hours): Temp Pulse Resp BP Pulse Ox 97.4 F L 89 20 96/59 L 93 L 08/07/17 15:00 08/07/17 15:00 08/07/17 15:00 08/07/17 15:00 08/07/17 15:00 Intake and Output: 08/07/17 08/08/17 18:59 06:59 Intake Total 680 Balance 680 - Medications Medications: Current Medications Ascorbic Acid (Vitamin C 500 Mg Tab) 500 mg PO DAILY [facility] Last Admin: 08/07/17 09:38 Dose: 500 mg Aspirin (Aspirin Chewable) 81 mg PO DAILY [facility] Last Admin: 08/07/17 09:38 Dose: 81 mg Clopidogrel Bisulfate (Plavix) 75 mg PO DAILY [facility] Last Admin: 08/07/17 09:38 Dose: 75 mg Epoetin [place] (Procrit) 10,000 unit SC TTS [facility] Last Admin: 08/06/17 10:28 Dose: 10,000 unit Famotidine (Pepcid) 20 mg PO DAILY [facility] Last Admin: 08/07/17 09:38 Dose: 20 mg Ferric Sodium Gluconate Complex (Ferrlecit) 125 mg IVPB TTS [facility] Stop: 08/14/17 10:01 Last Admin: 08/06/17 10:27 Dose: 125 mg Finasteride (Proscar) 5 mg PO DAILY [facility] Last Admin: 08/07/17 09:36 Dose: 5 mg Heparin Sodium (Porcine) (Heparin) 5,000 units SC Q12H [facility] Last Admin: 08/07/17 14:02 Dose: 5,000 units Hydralazine HCl (Apresoline) 25 mg PO BID [facility] Last Admin: 07/29/17 17:38 Dose: Not Given Ciprofloxacin (Cipro 200mg/100ml D5w) 100 mls @ 67 mls/hr IVPB Q12H [facility] Last Admin: 08/07/17 12:32 Dose: 67 mls/hr Levothyroxine Sodium (Synthroid) 25 mcg PO DAILY@0630 [facility] Last Admin: 08/07/17 06:15 Dose: 25 mcg Metoprolol Tartrate (Lopressor) 25 mg PO BID [facility] Last Admin: 07/30/17 18:16 Dose: Not Given Midodrine (Proamatine) 5 mg PO TID [facility] Last Admin: 08/07/17 18:03 Dose: 5 mg Multivitamins (Hexavitamin) 1 tab PO DAILY [facility] Last Admin: 08/07/17 09:38 Dose: 1 tab Paricalcitol (Zemplar) 2 mcg IV TTS [facility] Last Admin: 08/06/17 10:28 Dose: 2 mcg Tamsulosin HCl (Flomax) 0.4 mg PO DAILY [facility] Last Admin: 08/07/17 09:38 Dose: 0.4 mg - Labs Labs: 08/07/17 06:10 08/07/17 06:10 PT 16.0 SECONDS (9.7-12.2) H 07/30/17 12:16 INR 1.4 07/30/17 12:16 APTT 30 SECONDS (21-34) 07/30/17 08:54
--- NOTE | 2017-08-07 22:52 | CP.PCM.PN ---
Subjective - Date & Time of Evaluation Date of Evaluation: 08/07/17 Time of Evaluation: 18:00 - Subjective Subjective: pt was seen & examined by me , pt is improving, his BUN/creatinine improving., pt is for swallowing eval tommorow Objective - Vital Signs/Intake and Output Vital Signs (last 24 hours): Temp Pulse Resp BP Pulse Ox 97.4 F L 89 20 96/59 L 93 L 08/07/17 15:00 08/07/17 15:00 08/07/17 15:00 08/07/17 15:00 08/07/17 15:00 Intake and Output: 08/07/17 08/08/17 18:59 06:59 Intake Total 680 Balance 680 - Medications Medications: Current Medications Ascorbic Acid (Vitamin C 500 Mg Tab) 500 mg PO DAILY [facility] Last Admin: 08/07/17 09:38 Dose: 500 mg Aspirin (Aspirin Chewable) 81 mg PO DAILY [facility] Last Admin: 08/07/17 09:38 Dose: 81 mg Clopidogrel Bisulfate (Plavix) 75 mg PO DAILY [facility] Last Admin: 08/07/17 09:38 Dose: 75 mg Epoetin Jacobo (Procrit) 10,000 unit SC TTS [facility] Last Admin: 08/06/17 10:28 Dose: 10,000 unit Famotidine (Pepcid) 20 mg PO DAILY [facility] Last Admin: 08/07/17 09:38 Dose: 20 mg Ferric Sodium Gluconate Complex (Ferrlecit) 125 mg IVPB TTS [facility] Stop: 08/14/17 10:01 Last Admin: 08/06/17 10:27 Dose: 125 mg Finasteride (Proscar) 5 mg PO DAILY [facility] Last Admin: 08/07/17 09:36 Dose: 5 mg Heparin Sodium (Porcine) (Heparin) 5,000 units SC Q12H [facility] Last Admin: 08/07/17 14:02 Dose: 5,000 units Hydralazine HCl (Apresoline) 25 mg PO BID [facility] Last Admin: 07/29/17 17:38 Dose: Not Given Ciprofloxacin (Cipro 200mg/100ml D5w) 100 mls @ 67 mls/hr IVPB Q12H [facility] Last Admin: 08/07/17 12:32 Dose: 67 mls/hr Levothyroxine Sodium (Synthroid) 25 mcg PO DAILY@0630 [facility] Last Admin: 08/07/17 06:15 Dose: 25 mcg Metoprolol Tartrate (Lopressor) 25 mg PO BID [facility] Last Admin: 07/30/17 18:16 Dose: Not Given Midodrine (Proamatine) 5 mg PO TID [facility] Last Admin: 08/07/17 18:03 Dose: 5 mg Multivitamins (Hexavitamin) 1 tab PO DAILY [facility] Last Admin: 08/07/17 09:38 Dose: 1 tab Paricalcitol (Zemplar) 2 mcg IV TTS [facility] Last Admin: 08/06/17 10:28 Dose: 2 mcg Tamsulosin HCl (Flomax) 0.4 mg PO DAILY [facility] Last Admin: 08/07/17 09:38 Dose: 0.4 mg - Labs Labs: 08/07/17 06:10 08/07/17 06:10 PT 16.0 SECONDS (9.7-12.2) H 07/30/17 12:16 INR 1.4 07/30/17 12:16 APTT 30 SECONDS (21-34) 07/30/17 08:54 - Constitutional Appears: No Acute Distress - Head Exam Head Exam: ATRAUMATIC, NORMAL INSPECTION, NORMOCEPHALIC - Eye Exam Eye Exam: EOMI, Normal appearance, PERRL Pupil Exam: NORMAL ACCOMODATION, PERRL - Respiratory Exam Respiratory Exam: Clear to Ausculation Bilateral, NORMAL BREATHING PATTERN - Cardiovascular Exam Cardiovascular Exam: REGULAR RHYTHM, +S1, +S2. absent: Murmur - GI/Abdominal Exam GI & Abdominal Exam: Soft, Normal Bowel Sounds. absent: Tenderness Assessment and Plan (1) Fever Status: Acute (2) Leukocytosis Status: Acute (3) UTI (urinary tract infection) Status: Acute (4) Leg ulcer Status: Acute (5) Toxic metabolic encephalopathy Status: Acute
[2017-08-08] MEDS: Ciprofloxacin 200mg/100ml D5W 100 ML IVPB SCH ×2 (01:36→13:52)
[2017-08-08] MEDS: Levothyroxine 25 MCG TAB PO SCH (06:09)
[2017-08-08 07:13] LABS: BASO # 0.1 K/uL (0.0-0.2); BASO % 0.5 % (0.0-2.0); EOS # 0.1 K/uL (0.0-0.7); EOS % 0.5 % (0.0-4.0); HEMATOCRIT 29.2 % (35.0-51.0); LYMPH # 1.4 K/uL (1.0-4.3); LYMPH % 10.4 % (20.0-40.0); MEAN CELL VOLUME 88.1 fL (80.0-94.0); MEAN CORPUSCULAR HEMOGLOBIN 27.6 pg (27.0-31.0); MEAN CORPUSCULAR HGB CONC 31.3 g/dL (33.0-37.0); MEAN PLATELET VOLUME 8.9 fL (7.2-11.7); MONO # 0.8 K/uL (0.0-0.8); MONO % 5.6 % (0.0-10.0); NRBC % 0.2 % (0.0-2.0); RED CELL DISTRIBUTION WIDTH 18.4 % (11.5-14.5); WHITE BLOOD COUNT 13.9 K/uL (4.8-10.8)
[2017-08-08] MEDS ORDERED: Albumin Human 25% (12.5 gm/50 ml) IV SCH (09:25)
[2017-08-08] MEDS: Albumin Human 25% (12.5 gm/50 ml) IV SCH ×2 (10:06→16:26)
[2017-08-08] MEDS: Ferric Sodium Gluconat Complex 62.5 mg/5 ml Vial IVPB SCH (10:26)
[2017-08-08] MEDS: Paricalcitol 2 mcg/ml Inj IV SCH (10:29)
[2017-08-08] MEDS ORDERED: EPOETIN ALFA 10,000 UNIT/ML ML IV ONE (10:30)
[2017-08-08] MEDS: Multiple Vitamins Tab PO SCH (11:11)
[2017-08-08] MEDS ORDERED: Epoetin Alfa 10,000 unit/ml Dialysis SC SCH (11:45)
[2017-08-08 11:52] LABS: INR 1.5
[2017-08-08 12:37] LABS: RBC URINE 3 /hpf (0-3); URINE BILIRUBIN NEGATIVE (NEGATIVE); URINE BLOOD 1+ (NEGATIVE); URINE COLOR Amber (YELLOW); URINE GLUCOSE (UA) NORMAL (Normal); URINE KETONE NEGATIVE (NEGATIVE); URINE LEUKOCYTE ESTERASE 1+ Leu/uL (Negative); URINE PROTEIN 1+ mg/dL (NEGATIVE); URINE UROBILINOGEN NORMAL mg/dL (0.2-1.0); WBC URINE 12 /hpf (0-5)
--- NOTE | 2017-08-08 15:35 | PN ---
FOLLOWUP RENAL CONSULTATION LOCATION: The patient is located in room 357, bed A. REQUESTING PHYSICIAN: Dr. Daniel Coyle. REASON FOR RENAL CONSULTATION: Acute renal failure, chronic kidney disease versus end-stage renal disease on hemodialysis three times a week. HISTORY OF PRESENT ILLNESS: Mr. Cunningham is an 82-year-old elderly -Polish male with a past medical history significant for longstanding hypertension, coronary artery disease status post CABG, CHF, chronic kidney disease stage IV, tophaceous gout, status post fall, rhabdomyolysis and CHF, [facility] with chief complaints of altered mental status and fever. The patient is being treated for urosepsis and status post code sepsis and transferred to ICU with worsening renal function and shock liver. Subsequently, the patient was started on hemodialysis for worsening renal function. Now, the patient is transferred back to the medical floor. The patient is not in acute distress, following simple commands. Denies any chest pain, palpitation. Denies any shortness of breath. PHYSICAL EXAMINATION: GENERAL: Mr. Cunningham is an 82-year-old elderly -Polish male with a history of longstanding hypertension, coronary artery disease, CKD, moderately built, moderately nourished, not in distress. VITAL SIGNS: As follows; blood pressure 96/59, pulse 89, respirations 20, temperature 97.4, saturation 93%. Height 6 feet 3 inches and weight is 183 pounds. HEENT: Pupils normal and reactive to light and accommodation. Conjunctivae pink. Sclerae are anicteric. Tongue is moist and trachea is midline. LUNGS: Symmetric on both sides. Bilateral breath sounds present. Basal crackles present. CVS: [place] at the fifth intercostal space, midclavicular line. S1, S2 audible. No murmur or gallop. The patient has a midsternal scar present from the previous CABG. ABDOMEN: Normal in appearance, soft, tympanic. No guarding. No rigidity. No hepatosplenomegaly. TOURIST INFORMATION OFFICER: The patient is alert, awake, following simple commands. EXTREMITIES: No cyanosis, no clubbing. The patient has 1 to 2+ edema both upper and lower extremities. CURRENT MEDICATIONS: Include aspirin 81 mg p.o. daily, Cipro 200 mg q.12 hours, Ferrlecit 125 mg IV three times a week, Flomax 0.4 mg daily, subcu heparin 5000 q.12 hours, multivitamin 1 tablet daily, metoprolol on hold, Pepcid 20 mg p.o. daily and Plavix 75 mg daily., midodrine 5 mg p.o. t.i.d., Procrit 10,000 units three times a week, Proscar 5 mg daily, levothyroxine 25 mcg p.o. daily, vitamin C 500 mg p.o. daily, Zemplar 2 mcg three times a week. LABORATORY: Include as follows as of 08/07/2017, WBC 14.1, hemoglobin 8.7, hematocrit is 27.4, platelet 147. Neutrophils 86, lymph 9, mono 4, eosinophils 1. Sodium 138, potassium 3.3, chloride 101, CO2 of 26, BUN 59, creatinine 2.9, glucose is 95, calcium 7.3, phosphorus 3.7, magnesium 2.0. Total bili 0.7, AST 49, ALT 161, alkaline phosphatase 151, total protein 6.0 and albumin is 2.4. ASSESSMENT: In summary, the patient is a 82-year-old elderly -Polish male with a history of hypertension, coronary artery disease status post CABG, CHF, chronic kidney disease, tophaceous gout, was admitted from the jail with altered mental status and fever, being treated for urosepsis with abnormal LFTs and fluid retention and also with history of bilateral infiltrates. 1. Renal failure, acute on chronic kidney disease versus progression of the chronic kidney disease to end-stage renal disease. 2. Anemia secondary to renal failure. 3. Congestive heart failure. 4. Abnormal LFTs secondary to shock liver. PLAN: Continue hemodialysis three times a week Saturday, , Saturday and continue IV antibiotics as per ID recommendation and consider to repeat the echo for LV function. Overall prognosis is guarded. Thank you for allowing me to participate in your patient's care. Continue midodrine and continue Procrit three times during dialysis. Hernan Peterson MD
--- NOTE | 2017-08-08 21:19 | PN ---
DATE: LOCATION: [facility], bed A. SUBJECTIVE: This is an 82 years old male seen and examined in rounds without significant clinical changes, but with poor oral intake with NG tube in place. The entire chart is reviewed including but not limited to the most recent lab and radiology study results, current and the previous medication list, current and the previous medical events. Case discussed at length with the staff in the floor. LABORATORY DATA: Today's labs showed white blood cells of 13.9, elevated with low hemoglobin of 9.2 and low hematocrit of 29.2, but normal platelet count with increased PT of 17.6 and blood glucose level of 127. PHYSICAL EXAMINATION: GENERAL: An 82 years old male appeared to be somewhat semi-awake. VITAL SIGNS: Afebrile with pulse of 94, respiratory rate 20 to 22 with blood pressure 104/60. HEENT: Show pale dry oral mucoid membranes, nonicteric sclerae. LUNGS: Few scattered crepitation. Decreased air entry at bases. HEART: Positive S1 and S2. ABDOMEN: Soft, bowel sounds are present. No mass or organomegaly, no rebound tenderness or guarding. EXTREMITIES: Evidence of muscle wasting syndrome with lower extremities, mild edematous changes. No clubbing or cyanosis. NEUROLOGIC: No reported neurological deficits, sensory or motor. SKIN: The patient still has leg ulceration, covered with clean dressing. IMPRESSION: 1. Malnutrition with hypoalbuminemia. 2. Failure to thrive. 3. Re-exacerbation of peptic ulcer disease. 4. Elevated liver function tests, most likely secondary to right-sided heart failure and/or any infectious process. 5. Aspiration pneumonia, pleural effusion bilaterally. 6. Acute renal insufficiency, improving. 7. Anemia secondary to above. 8. Recurrent episode of urinary tract infection. 9. Elevated troponin level. 10. The patient is a candidate for percutaneous endoscopic gastrostomy insertion, awaiting swallow evaluation. SUGGESTION: 1. Continue current management. 2. Correct any underlying infectious process and/or electrolyte imbalance. 3. Continue NG tube feeding in the meantime. 4. Correct any underlying coagulopathy. 5. Further recommendations to follow post the PEG insertion when the patient is more stable clinically. Katia Pardo MD
--- NOTE | 2017-08-08 22:05 | CP.PCM.PN ---
Subjective - Date & Time of Evaluation Date of Evaluation: 08/08/17 Time of Evaluation: 09:20 - Subjective Subjective: pt is seen and examined follow up consult is dictated #[id number] Objective - Vital Signs/Intake and Output Vital Signs (last 24 hours): Temp Pulse Resp BP Pulse Ox 97.7 F 95 H 20 102/58 L 91 L 08/08/17 15:00 08/08/17 15:00 08/08/17 15:00 08/08/17 15:00 08/08/17 15:00 Intake and Output: 08/08/17 08/09/17 18:59 06:59 Intake Total 300 Output Total 131 Balance 169 - Medications Medications: Current Medications Ascorbic Acid (Vitamin C 500 Mg Tab) 500 mg PO DAILY [facility] Last Admin: 08/08/17 11:14 Dose: Not Given Aspirin (Aspirin Chewable) 81 mg PO DAILY [facility] Last Admin: 08/08/17 11:00 Dose: Not Given Clopidogrel Bisulfate (Plavix) 75 mg PO DAILY [facility] Last Admin: 08/08/17 11:12 Dose: Not Given Epoetin Jacobo (Procrit) 10,000 unit IV TTS [facility] Famotidine (Pepcid) 20 mg PO DAILY [facility] Last Admin: 08/08/17 11:12 Dose: Not Given Ferric Sodium Gluconate Complex (Ferrlecit) 125 mg IVPB TTS [facility] Stop: 08/14/17 10:01 Last Admin: 08/08/17 10:26 Dose: 125 mg Finasteride (Proscar) 5 mg PO DAILY [facility] Last Admin: 08/08/17 11:13 Dose: Not Given Heparin Sodium (Porcine) (Heparin) 5,000 units SC Q12H [facility] Last Admin: 08/08/17 14:03 Dose: 5,000 units Hydralazine HCl (Apresoline) 25 mg PO BID [facility] Last Admin: 07/29/17 17:38 Dose: Not Given Ciprofloxacin (Cipro 200mg/100ml D5w) 100 mls @ 67 mls/hr IVPB Q12H [facility] Last Admin: 08/08/17 13:52 Dose: 67 mls/hr Levothyroxine Sodium (Synthroid) 25 mcg PO DAILY@0630 [facility] Last Admin: 08/08/17 06:09 Dose: 25 mcg Metoprolol Tartrate (Lopressor) 25 mg PO BID [facility] Last Admin: 07/30/17 18:16 Dose: Not Given Midodrine (Proamatine) 5 mg PO TID [facility] Last Admin: 08/08/17 17:31 Dose: 5 mg Multivitamins (Hexavitamin) 1 tab PO DAILY [facility] Last Admin: 08/08/17 11:11 Dose: Not Given Paricalcitol (Zemplar) 2 mcg IV TTS [facility] Last Admin: 08/08/17 10:29 Dose: 2 mcg Tamsulosin HCl (Flomax) 0.4 mg PO DAILY [facility] Last Admin: 08/08/17 11:11 Dose: Not Given - Labs Labs: 08/08/17 07:04 08/07/17 06:10 PT 17.6 SECONDS (9.7-12.2) H 08/08/17 11:39 INR 1.5 08/08/17 11:39 APTT 34 SECONDS (21-34) 08/08/17 11:39
--- NOTE | 2017-08-08 22:38 | CP.PCM.PN ---
Subjective - Date & Time of Evaluation Date of Evaluation: 08/08/17 Time of Evaluation: 19:40 - Subjective Subjective: pt seen & examined today, is more alert, on HD, afebrile, less short of breath, D/C NG tube and started oral feed as pt passed swallowing eval Objective - Vital Signs/Intake and Output Vital Signs (last 24 hours): Temp Pulse Resp BP Pulse Ox 97.7 F 95 H 20 102/58 L 91 L 08/08/17 15:00 08/08/17 15:00 08/08/17 15:00 08/08/17 15:00 08/08/17 15:00 Intake and Output: 08/08/17 08/09/17 18:59 06:59 Intake Total 300 Output Total 131 Balance 169 - Medications Medications: Current Medications Ascorbic Acid (Vitamin C 500 Mg Tab) 500 mg PO DAILY [facility] Last Admin: 08/08/17 11:14 Dose: Not Given Aspirin (Aspirin Chewable) 81 mg PO DAILY [facility] Last Admin: 08/08/17 11:00 Dose: Not Given Clopidogrel Bisulfate (Plavix) 75 mg PO DAILY [facility] Last Admin: 08/08/17 11:12 Dose: Not Given Epoetin Jacobo (Procrit) 10,000 unit IV TTS [facility] Famotidine (Pepcid) 20 mg PO DAILY [facility] Last Admin: 08/08/17 11:12 Dose: Not Given Ferric Sodium Gluconate Complex (Ferrlecit) 125 mg IVPB TTS [facility] Stop: 08/14/17 10:01 Last Admin: 08/08/17 10:26 Dose: 125 mg Finasteride (Proscar) 5 mg PO DAILY [facility] Last Admin: 08/08/17 11:13 Dose: Not Given Heparin Sodium (Porcine) (Heparin) 5,000 units SC Q12H [facility] Last Admin: 08/08/17 14:03 Dose: 5,000 units Hydralazine HCl (Apresoline) 25 mg PO BID [facility] Last Admin: 07/29/17 17:38 Dose: Not Given Ciprofloxacin (Cipro 200mg/100ml D5w) 100 mls @ 67 mls/hr IVPB Q12H [facility] Last Admin: 08/08/17 13:52 Dose: 67 mls/hr Levothyroxine Sodium (Synthroid) 25 mcg PO DAILY@0630 [facility] Last Admin: 08/08/17 06:09 Dose: 25 mcg Metoprolol Tartrate (Lopressor) 25 mg PO BID [facility] Last Admin: 07/30/17 18:16 Dose: Not Given Midodrine (Proamatine) 5 mg PO TID [facility] Last Admin: 08/08/17 17:31 Dose: 5 mg Multivitamins (Hexavitamin) 1 tab PO DAILY [facility] Last Admin: 08/08/17 11:11 Dose: Not Given Paricalcitol (Zemplar) 2 mcg IV TTS [facility] Last Admin: 08/08/17 10:29 Dose: 2 mcg Tamsulosin HCl (Flomax) 0.4 mg PO DAILY [facility] Last Admin: 08/08/17 11:11 Dose: Not Given - Labs Labs: 08/08/17 07:04 08/07/17 06:10 PT 17.6 SECONDS (9.7-12.2) H 08/08/17 11:39 INR 1.5 08/08/17 11:39 APTT 34 SECONDS (21-34) 08/08/17 11:39 - Constitutional Appears: No Acute Distress - Head Exam Head Exam: ATRAUMATIC, NORMAL INSPECTION, NORMOCEPHALIC - Eye Exam Eye Exam: EOMI, Normal appearance, PERRL Pupil Exam: NORMAL ACCOMODATION, PERRL - Respiratory Exam Respiratory Exam: Clear to Ausculation Bilateral, NORMAL BREATHING PATTERN - Cardiovascular Exam Cardiovascular Exam: REGULAR RHYTHM, +S1, +S2. absent: Murmur Assessment and Plan (1) Fever Status: Acute (2) Leukocytosis Status: Acute (3) UTI (urinary tract infection) Status: Acute (4) Leg ulcer Status: Acute (5) Toxic metabolic encephalopathy Status: Acute
--- NOTE | 2017-08-09 00:55 | CON ---
LOCATION: The patient is located in room #355, bed A. REQUESTED BY: Daniel Coyle MD REASON FOR FOLLOWUP: Renal failure, for continuation of hemodialysis. HISTORY OF PRESENT ILLNESS: Mr. Cunningham is an 82-year-old elderly male with past medical history significant for hypertension, coronary artery disease status post CABG, CHF, CKD IV, who was recently admitted to [facility] on 05/27 after he had a fall and rhabdomyolysis. Subsequently, [facility]. After 5 weeks, the patient was sent to the hospital on 07/24/2017 with chief complaints of altered mental status and fever. The patient is being treated for urosepsis and also pneumonia and CHF. His hospital course was complicated by code sepsis and worsening renal function and shock liver requiring initiation of the hemodialysis. The patient is on hemodialysis 3 times a week Saturday, , Saturday. The patient is not in acute distress. The patient was seen and examined during dialysis and denies any complaints today. No shortness of breath. UF goal is about 500 to 1 liter as tolerated. PHYSICAL EXAMINATION VITAL SIGNS: As follows; during dialysis blood pressure 100/50, pulse 96, respirations 16, temperature 98 and sat is 95%. Height 6 feet 3 inches and weight is 183 pounds. GENERAL: Mr. Cunningham is an 82 years elderly male, moderately-built, moderately-nourished, not in acute distress. HEENT: Pupils normal, react to light and accommodation. Conjunctivae pink. Sclerae anicteric. Tongue is moist. Trachea is midline. LUNGS: Symmetric on both sides. Bilateral breath sounds present. Bilateral basal crackles present. CARDIOVASCULAR SYSTEM: [place] at the fifth intercostal space, midclavicular line, S1 and S2 audible. No murmur or gallop. The patient has a midsternal scar present from the previous CABG. ABDOMEN: Soft, tympanic. No guarding. No rigidity. No hepatosplenomegaly. CENTRAL NERVOUS SYSTEMS: The patient is alert, awake, oriented x1 to x2. Sensory and motor system is grossly within normal limits. EXTREMITIES: No cyanosis, no clubbing. The patient has 1 to 2+ edema in both upper and lower extremities. CURRENT MEDICATIONS: Include as follows; aspirin 81 mg daily, Cipro 200 mg IV q.12 hours, Ferrlecit 125 mg IV 3 times a week, Flomax 0.4 mg daily, subcu heparin 5000 q.12 hours, Pepcid 20 mg p.o. daily, Plavix 75 mg daily, midodrine 5 mg p.o. t.i.d., Procrit 10,000 three times a week, Proscar 5 mg p.o. daily, levothyroxine 25 mcg p.o. daily, vitamin C 500 mg p.o. daily and Zemplar 2 mcg 3 times a week. LABORATORY DATA: Include as follows; as of 08/08/2017; WBC 13.9, hemoglobin 9.2, hematocrit is 29.2 and platelets 159. PT is 17.6, PTT is 34. Urinalysis, selvin color, hazy, pH 5, specific gravity 1.017, protein 1+, glucose is normal, ketones negative, blood 1+, nitrites negative, bilirubin negative, urobilinogen normal, leukocyte esterase 1+, wbc 12 and rbc 3. ASSESSMENT: In summary; Mr. Cunningham is an 82 years elderly male with history of hypertension, coronary artery disease status post coronary artery bypass graft, congestive heart failure, chronic kidney disease stage IV, tophaceous gout, was admitted with altered mental status and fever and being treated for urosepsis and pneumonia with shock liver. 1. Renal failure, acute on chronic kidney disease versus progression of chronic kidney disease for end-stage renal disease. 2. Anemia secondary to renal failure. 3. Abnormal liver function tests secondary to shock liver secondary to hypotension, liver functions are improving. 4. Congestive heart failure. 5. Pneumonia. PLAN: Continue hemodialysis 3 times a week and continue antibiotics as per ID and consider to repeat chest x-ray, considered to check echocardiogram for evaluation of left ventricular ejection fraction. We will follow with you. Thank you for allowing me to participate in your patient's care. Overall prognosis is guarded. Hernan Peterson MD
[2017-08-09] MEDS: Ciprofloxacin 200mg/100ml D5W 100 ML IVPB SCH ×2 (01:41→14:12)
[2017-08-09] MEDS: Levothyroxine 25 MCG TAB PO SCH (06:40)
[2017-08-09] MEDS: Multiple Vitamins Tab PO SCH (09:26)
--- NOTE | 2017-08-09 11:22 | CP.PCM.PN ---
Subjective - Date & Time of Evaluation Date of Evaluation: 08/09/17 Time of Evaluation: 11:22 - Subjective Subjective: pt is seen and examined, follow up consult is dictated #[id number] Objective - Vital Signs/Intake and Output Vital Signs (last 24 hours): Temp Pulse Resp BP Pulse Ox 97.5 F L 94 H 20 96/59 L 95 08/09/17 08:19 08/09/17 08:19 08/09/17 08:19 08/09/17 08:19 08/09/17 08:19 Intake and Output: 08/09/17 08/09/17 06:59 18:59 Intake Total 150 Balance 150 - Medications Medications: Current Medications Ascorbic Acid (Vitamin C 500 Mg Tab) 500 mg PO DAILY [facility] Last Admin: 08/08/17 11:14 Dose: Not Given Aspirin (Aspirin Chewable) 81 mg PO DAILY [facility] Last Admin: 08/09/17 09:26 Dose: 81 mg Clopidogrel Bisulfate (Plavix) 75 mg PO DAILY [facility] Last Admin: 08/09/17 09:25 Dose: 75 mg Epoetin Jacobo (Procrit) 10,000 unit IV TTS [facility] Famotidine (Pepcid) 20 mg PO DAILY [facility] Last Admin: 08/09/17 09:25 Dose: 20 mg Ferric Sodium Gluconate Complex (Ferrlecit) 125 mg IVPB TTS [facility] Stop: 08/14/17 10:01 Last Admin: 08/08/17 10:26 Dose: 125 mg Finasteride (Proscar) 5 mg PO DAILY [facility] Last Admin: 08/08/17 11:13 Dose: Not Given Heparin Sodium (Porcine) (Heparin) 5,000 units SC Q12H [facility] Last Admin: 08/09/17 02:40 Dose: 5,000 units Hydralazine HCl (Apresoline) 25 mg PO BID [facility] Last Admin: 07/29/17 17:38 Dose: Not Given Ciprofloxacin (Cipro 200mg/100ml D5w) 100 mls @ 67 mls/hr IVPB Q12H [facility] Last Admin: 08/09/17 01:41 Dose: 67 mls/hr Levothyroxine Sodium (Synthroid) 25 mcg PO DAILY@0630 [facility] Last Admin: 08/09/17 06:40 Dose: 25 mcg Metoprolol Tartrate (Lopressor) 25 mg PO BID [facility] Last Admin: 07/30/17 18:16 Dose: Not Given Midodrine (Proamatine) 5 mg PO TID [facility] Last Admin: 08/08/17 17:31 Dose: 5 mg Multivitamins (Hexavitamin) 1 tab PO DAILY [facility] Last Admin: 08/09/17 09:26 Dose: 1 tab Paricalcitol (Zemplar) 2 mcg IV TTS [facility] Last Admin: 08/08/17 10:29 Dose: 2 mcg Tamsulosin HCl (Flomax) 0.4 mg PO DAILY [facility] Last Admin: 08/09/17 09:26 Dose: 0.4 mg - Labs Labs: 08/08/17 07:04 08/07/17 06:10 PT 17.6 SECONDS (9.7-12.2) H 08/08/17 11:39 INR 1.5 08/08/17 11:39 APTT 34 SECONDS (21-34) 08/08/17 11:39
--- NOTE | 2017-08-09 20:07 | PN ---
LOCATION: [facility], bed A. SUBJECTIVE: This is an 82-year-old male seen and examined in rounds without significant clinical changes, without reported active bleeding recently, but poor oral intake. The entire chart is reviewed including, but not limited to the most recent laboratory and radiology study results, current and previous medications, current and the previous medical events. Today's lab showed blood glucose of 104, no other available lab results. PHYSICAL EXAMINATION: GENERAL: An 82-year-old male, appear to be mildly lethargic. VITAL SIGNS: Afebrile with pulse of 92, respiratory rate 20 to 22 and blood pressure 100/60. HEENT: Showed pale dry oral mucoid membranes. Nonicteric sclerae. LUNGS: Few scattered crepitations. Decreased air entry at bases. HEART: Positive S1 and S2. ABDOMEN: Soft. Bowel sounds are present. No mass or organomegaly. No rebound tenderness or guarding. EXTREMITIES: Evidence of mild muscle wasting syndrome and lower extremities mild edematous changes. NEUROLOGIC: No new reported neurological deficits, sensory or motor. It has to be mention that the patient's lower extremities ulceration is still covered, there was clean dressing. IMPRESSION: 1. Re-exacerbation of peptic ulcer disease. 2. Failure to thrive. 3. Hypoalbuminemia with malnutrition. 4. Elevated liver function test, slightly improving which could be secondary to right-sided heart failure versus lower extremities infectious process. 5. Reported aspiration pneumonia with bilateral pleural effusion. 6. Anemia most likely secondary to above. 7. Acute renal insufficiency. 8. Elevated troponin level with possibility of myocardial infarction to be ruled in or out. 9. Recurrent episode of urinary tract infection. 10. The patient is a candidate for percutaneous endoscopic gastrostomy insertion, awaiting official report of swallow evaluation. SUGGESTION: 1. Continue current management. 2. Increase the rate of feeding through the NG tube. 3. He is scheduled for PEG insertion when the family is available. Katia Pardo MD cc: Katia Pardo MD
[2017-08-09 20:12] LABS: INR 1.5
--- NOTE | 2017-08-09 23:29 | CP.PCM.PN ---
Subjective - Date & Time of Evaluation Date of Evaluation: 08/09/17 Time of Evaluation: 19:00 - Subjective Subjective: Pt is seen and examined at bedside, is complaining of left shoulder pain, no cough, no shortness of breath Objective - Vital Signs/Intake and Output Vital Signs (last 24 hours): Temp Pulse Resp BP Pulse Ox 97.5 F L 94 H 20 96/59 L 95 08/09/17 08:19 08/09/17 08:19 08/09/17 08:19 08/09/17 08:19 08/09/17 08:19 Intake and Output: 08/09/17 08/10/17 18:59 06:59 Intake Total 100 Output Total 50 Balance 50 - Medications Medications: Current Medications Acetaminophen (Tylenol 325mg Tab) 650 mg PO Q6 PRN PRN Reason: Pain, moderate (4-7) Ascorbic Acid (Vitamin C 500 Mg Tab) 500 mg PO DAILY [facility] Last Admin: 08/08/17 11:14 Dose: Not Given Aspirin (Aspirin Chewable) 81 mg PO DAILY [facility] Last Admin: 08/09/17 09:26 Dose: 81 mg Clopidogrel Bisulfate (Plavix) 75 mg PO DAILY [facility] Last Admin: 08/09/17 09:25 Dose: 75 mg Epoetin Jacobo (Procrit) 10,000 unit IV TTS [facility] Famotidine (Pepcid) 20 mg PO DAILY [facility] Last Admin: 08/09/17 09:25 Dose: 20 mg Ferric Sodium Gluconate Complex (Ferrlecit) 125 mg IVPB TTS [facility] Stop: 08/14/17 10:01 Last Admin: 08/08/17 10:26 Dose: 125 mg Finasteride (Proscar) 5 mg PO DAILY [facility] Last Admin: 08/08/17 11:13 Dose: Not Given Heparin Sodium (Porcine) (Heparin) 5,000 units SC Q12H [facility] Last Admin: 08/09/17 14:11 Dose: 5,000 units Hydralazine HCl (Apresoline) 25 mg PO BID [facility] Last Admin: 07/29/17 17:38 Dose: Not Given Ciprofloxacin (Cipro 200mg/100ml D5w) 100 mls @ 67 mls/hr IVPB Q12H [facility] Last Admin: 08/09/17 14:12 Dose: 67 mls/hr Levothyroxine Sodium (Synthroid) 25 mcg PO DAILY@0630 [facility] Last Admin: 08/09/17 06:40 Dose: 25 mcg Metoprolol Tartrate (Lopressor) 25 mg PO BID [facility] Last Admin: 07/30/17 18:16 Dose: Not Given Midodrine (Proamatine) 5 mg PO TID [facility] Last Admin: 08/09/17 17:32 Dose: 5 mg Multivitamins (Hexavitamin) 1 tab PO DAILY [facility] Last Admin: 08/09/17 09:26 Dose: 1 tab Paricalcitol (Zemplar) 2 mcg IV TTS [facility] Last Admin: 08/08/17 10:29 Dose: 2 mcg Tamsulosin HCl (Flomax) 0.4 mg PO DAILY [facility] Last Admin: 08/09/17 09:26 Dose: 0.4 mg - Labs Labs: 08/08/17 07:04 08/07/17 06:10 PT 17.1 SECONDS (9.7-12.2) H 08/09/17 19:57 INR 1.5 08/09/17 19:57 APTT 36 SECONDS (21-34) H 08/09/17 19:57 - Constitutional Appears: No Acute Distress - Head Exam Head Exam: ATRAUMATIC, NORMAL INSPECTION, NORMOCEPHALIC - Eye Exam Eye Exam: EOMI, Normal appearance, PERRL Pupil Exam: NORMAL ACCOMODATION, PERRL - Respiratory Exam Respiratory Exam: Decreased Breath Sounds, Rales, Rhonchi - Cardiovascular Exam Cardiovascular Exam: REGULAR RHYTHM, +S1, +S2. absent: Murmur - GI/Abdominal Exam GI & Abdominal Exam: Soft, Normal Bowel Sounds. absent: Tenderness - Extremities Exam Extremities Exam: Joint Swelling, Tenderness Assessment and Plan (1) Fever Status: Acute (2) Leukocytosis Status: Acute (3) UTI (urinary tract infection) Status: Acute (4) Leg ulcer Status: Acute (5) Toxic metabolic encephalopathy Status: Acute
[2017-08-10] MEDS: Ciprofloxacin 200mg/100ml D5W 100 ML IVPB SCH ×2 (02:03→14:32)
[2017-08-10] MEDS: Levothyroxine 25 MCG TAB PO SCH (05:45)
--- NOTE | 2017-08-10 13:01 | PN ---
LOCATION: 357, bed A. SUBJECTIVE: This is an 82-year-old male seen and examined in rounds without significant clinical changes, but with poor oral intake up to about 25% only of his meal as reported by his nursing staff. No reported active bleeding, nausea or vomiting this morning but appeared to be somewhat lethargic. The entire chart is reviewed including but not limited to the most recent lab and radiology study results, current and previous medication list, current and the previous medical events. Case discussed with the staff in the floor at length. Today's lab showed blood glucose level of 81, rest of the lab is still pending. PHYSICAL EXAMINATION: GENERAL: An 82-year-old male. VITAL SIGNS: Afebrile with pulse of 92, respiratory rate 20 to 22, blood pressure 104/64. HEENT: Showed pale, dry oral mucoid membranes. Nonicteric sclerae. LUNGS: Few scattered crepitations. Decreased air entry at bases. HEART: Positive S1 and S2 with increased rate. ABDOMEN: Soft with mild distention and mild generalized tenderness. No mass or organomegaly. No rebound tenderness or guarding. Bowel sounds are present. EXTREMITIES: With evidence of mild muscle wasting syndrome and lower extremities edematous changes, mild. No clubbing or cyanosis. NEUROLOGIC: No new reported neurological focal deficits, sensory or motor. It has to be mentioned again that the lower extremities ulceration covered with clean dry dressing without any reported discharge this morning. IMPRESSION: 1. Re-exacerbation of peptic ulcer disease. 2. Failure to thrive. 3. The patient is a candidate for percutaneous endoscopic gastrostomy insertion. 4. Malnutrition with hypoalbuminemia. 5. Elevated liver function test, gradually improving. 6. Known history of acute renal insufficiency with dehydration, gradually improved. 7. Aspiration pneumonia with bilateral pleural effusion by recent history. 8. Anemia secondary to above. 9. Elevated troponin level with possible recent myocardial infarction to be ruled in or out. 10. Recurrent episodes of urinary tract infection, so far stable. SUGGESTION: 1. Continue current management. 2. Swallow evaluation. 3. The patient is to be scheduled for PEG insertion if symptoms persist and after obtaining legal cardiac consent. Katia Pardo MD cc: Katia Pardo MD [facility] # [id number]
[2017-08-10] MEDS: Ferric Sodium Gluconat Complex 62.5 mg/5 ml Vial IVPB SCH (13:05)
[2017-08-10] MEDS: Epoetin Alfa 10,000 unit/ml Dialysis IV SCH (13:06)
[2017-08-10] MEDS: Paricalcitol 2 mcg/ml Inj IV SCH (13:06)
[2017-08-10] MEDS: Multiple Vitamins Tab PO SCH (14:31)
--- NOTE | 2017-08-10 14:53 | CP.PCM.PN ---
Subjective - Date & Time of Evaluation Date of Evaluation: 08/10/17 Time of Evaluation: 14:53 - Subjective Subjective: pt is seen and examined, follow up consult is dictated #[id number] s/p hd today, had a uf about 1.5 lit Objective - Vital Signs/Intake and Output Vital Signs (last 24 hours): Temp Pulse Resp BP Pulse Ox 97.6 F 90 20 101/66 94 L 08/10/17 08:04 08/10/17 08:04 08/10/17 08:04 08/10/17 08:04 08/10/17 08:04 - Medications Medications: Current Medications Acetaminophen (Tylenol 325mg Tab) 650 mg PO Q6 PRN PRN Reason: Pain, moderate (4-7) Ascorbic Acid (Vitamin C 500 Mg Tab) 500 mg PO DAILY [facility] Last Admin: 08/10/17 14:30 Dose: 500 mg Aspirin (Aspirin Chewable) 81 mg PO DAILY [facility] Last Admin: 08/10/17 14:29 Dose: 81 mg Clopidogrel Bisulfate (Plavix) 75 mg PO DAILY [facility] Last Admin: 08/10/17 14:30 Dose: 75 mg Epoetin Jacobo (Procrit) 10,000 unit IV TTS [facility] Last Admin: 08/10/17 13:06 Dose: 10,000 unit Famotidine (Pepcid) 20 mg PO DAILY [facility] Last Admin: 08/10/17 14:35 Dose: 20 mg Ferric Sodium Gluconate Complex (Ferrlecit) 125 mg IVPB TTS [facility] Stop: 08/14/17 10:01 Last Admin: 08/10/17 13:05 Dose: 125 mg Finasteride (Proscar) 5 mg PO DAILY [facility] Last Admin: 08/10/17 14:36 Dose: 5 mg Heparin Sodium (Porcine) (Heparin) 5,000 units SC Q12H [facility] Last Admin: 08/10/17 14:35 Dose: 5,000 units Hydralazine HCl (Apresoline) 25 mg PO BID [facility] Last Admin: 07/29/17 17:38 Dose: Not Given Ciprofloxacin (Cipro 200mg/100ml D5w) 100 mls @ 67 mls/hr IVPB Q12H [facility] Last Admin: 08/10/17 14:32 Dose: 67 mls/hr Levothyroxine Sodium (Synthroid) 25 mcg PO DAILY@0630 [facility] Last Admin: 08/10/17 05:45 Dose: 25 mcg Metoprolol Tartrate (Lopressor) 25 mg PO BID [facility] Last Admin: 07/30/17 18:16 Dose: Not Given Midodrine (Proamatine) 5 mg PO TID [facility] Last Admin: 08/10/17 14:35 Dose: 5 mg Multivitamins (Hexavitamin) 1 tab PO DAILY [facility] Last Admin: 08/10/17 14:31 Dose: 1 tab Paricalcitol (Zemplar) 2 mcg IV TTS [facility] Last Admin: 08/10/17 13:06 Dose: 2 mcg Tamsulosin HCl (Flomax) 0.4 mg PO DAILY [facility] Last Admin: 08/10/17 14:30 Dose: 0.4 mg - Labs Labs: 08/08/17 07:04 08/07/17 06:10 PT 17.1 SECONDS (9.7-12.2) H 08/09/17 19:57 INR 1.5 08/09/17 19:57 APTT 36 SECONDS (21-34) H 08/09/17 19:57
--- NOTE | 2017-08-10 23:07 | CP.PCM.PN ---
Subjective - Date & Time of Evaluation Date of Evaluation: 08/10/17 Time of Evaluation: 02:00 - Subjective Subjective: Pt seen and examined,complaining of let shoulder pain, no acute distress Objective - Vital Signs/Intake and Output Vital Signs (last 24 hours): Temp Pulse Resp BP Pulse Ox 97.4 F L 94 H 20 103/67 92 L 08/10/17 16:30 08/10/17 16:30 08/10/17 16:30 08/10/17 16:30 08/10/17 16:30 - Medications Medications: Current Medications Acetaminophen (Tylenol 325mg Tab) 650 mg PO Q4 PRN PRN Reason: Pain, moderate (4-7) Last Admin: 08/10/17 15:13 Dose: 650 mg Acetaminophen (Tylenol 325mg Tab) 650 mg PO Q6 PRN PRN Reason: FEVER ABOVE 101 OR [facility] Ascorbic Acid (Vitamin C 500 Mg Tab) 500 mg PO DAILY [facility] Last Admin: 08/10/17 14:30 Dose: 500 mg Aspirin (Aspirin Chewable) 81 mg PO DAILY [facility] Last Admin: 08/10/17 14:29 Dose: 81 mg Clopidogrel Bisulfate (Plavix) 75 mg PO DAILY [facility] Last Admin: 08/10/17 14:30 Dose: 75 mg Epoetin Jacobo (Procrit) 10,000 unit IV TTS [facility] Last Admin: 08/10/17 13:06 Dose: 10,000 unit Famotidine (Pepcid) 20 mg PO DAILY [facility] Last Admin: 08/10/17 14:35 Dose: 20 mg Ferric Sodium Gluconate Complex (Ferrlecit) 125 mg IVPB TTS [facility] Stop: 08/14/17 10:01 Last Admin: 08/10/17 13:05 Dose: 125 mg Finasteride (Proscar) 5 mg PO DAILY [facility] Last Admin: 08/10/17 14:36 Dose: 5 mg Hydralazine HCl (Apresoline) 25 mg PO BID [facility] Last Admin: 07/29/17 17:38 Dose: Not Given Ciprofloxacin (Cipro 200mg/100ml D5w) 100 mls @ 67 mls/hr IVPB Q12H [facility] Last Admin: 08/10/17 14:32 Dose: 67 mls/hr Levothyroxine Sodium (Synthroid) 25 mcg PO DAILY@0630 [facility] Last Admin: 08/10/17 05:45 Dose: 25 mcg Metoprolol Tartrate (Lopressor) 25 mg PO BID [facility] Last Admin: 07/30/17 18:16 Dose: Not Given Midodrine (Proamatine) 5 mg PO TID [facility] Last Admin: 08/10/17 18:23 Dose: 5 mg Multivitamins (Hexavitamin) 1 tab PO DAILY [facility] Last Admin: 08/10/17 14:31 Dose: 1 tab Paricalcitol (Zemplar) 2 mcg IV TTS [facility] Last Admin: 08/10/17 13:06 Dose: 2 mcg Tamsulosin HCl (Flomax) 0.4 mg PO DAILY [facility] Last Admin: 08/10/17 14:30 Dose: 0.4 mg - Labs Labs: 08/08/17 07:04 08/07/17 06:10 PT 17.1 SECONDS (9.7-12.2) H 08/09/17 19:57 INR 1.5 08/09/17 19:57 APTT 36 SECONDS (21-34) H 08/09/17 19:57 - Constitutional Appears: No Acute Distress - Head Exam Head Exam: ATRAUMATIC, NORMAL INSPECTION, NORMOCEPHALIC - Eye Exam Eye Exam: EOMI, Normal appearance, PERRL Pupil Exam: NORMAL ACCOMODATION, PERRL - Respiratory Exam Respiratory Exam: Clear to Ausculation Bilateral, NORMAL BREATHING PATTERN - Cardiovascular Exam Cardiovascular Exam: REGULAR RHYTHM, +S1, +S2. absent: Murmur - GI/Abdominal Exam GI & Abdominal Exam: Soft, Normal Bowel Sounds. absent: Tenderness - Extremities Exam Extremities Exam: absent: Calf Tenderness, Full ROM, Joint Swelling, Normal Capillary Refill, Normal Inspection, Pedal Edema, Tenderness - Neurological Exam Neurological Exam: Alert, Awake, CN II-XII Intact, Normal Gait, Oriented x3 Assessment and Plan (1) Fever Status: Acute (2) Leukocytosis Status: Acute (3) UTI (urinary tract infection) Status: Acute (4) Leg ulcer Status: Acute (5) Toxic metabolic encephalopathy Status: Acute
[2017-08-11] MEDS: Ciprofloxacin 200mg/100ml D5W 100 ML IVPB SCH ×2 (00:31→14:30)
--- NOTE | 2017-08-11 01:13 | PN ---
FOLLOWUP RENAL CONSULTATION DATE: LOCATION: The patient is located in room 357, bed 8. REQUESTED BY: Daniel Coyle MD REASON FOR FOLLOWUP: Renal failure for continuation of hemodialysis. SUBJECTIVE: Mr. Cunningham is an 82-year-old elderly, -British male with past medical history significant for longstanding hypertension, coronary artery disease status post CABG, CHF, chronic kidney disease, anemia, who is the resident of snf for the last 6 weeks, was admitted with chief complaints of altered mental status, low grade fever and shortness of breath, and the patient was found to have urosepsis and also worsening renal function. Hospital course is complicated by code sepsis and transferred to ICU with worsening renal function and abnormal LFTs, was started on hemodialysis 3 times a week. The patient is not in distress. The patient is awake, somewhat confused. No chest pain, no shortness of breath. The patient underwent hemodialysis this afternoon and ultrafiltration about 1.5 L. PHYSICAL EXAMINATION: VITAL SIGNS: As follows, blood pressure 97/55, pulse 95, respirations about 15, and temperature 97.2. GENERAL: Mr. Cunningham is an 82-year-old elderly -British male, moderately built, moderately nourished, not in distress. HEENT: Pupils normal, reactive to light and accommodation. Conjunctivae pink. Sclerae anicteric. Tongue is moist, trachea is midline. LUNGS: Symmetric on both sides. Bilateral breath sounds present. Bilateral basal crackles present. CARDIOVASCULAR: [place] at the fifth intercostal space, midclavicular line. S1 and S2 audible. No murmur or gallop. The patient has midsternal scar present from the previous CABG. ABDOMEN: Normal in appearance, soft, tympanic. No guarding. No rigidity. No hepatosplenomegaly. CENTRAL NERVOUS SYSTEM: The patient is awake, following simple commands, now confused. EXTREMITIES: No cyanosis. No clubbing. The patient has 2+ edema in both upper and lower extremities. Also has small superficial ulcers on the right forearm. CURRENT MEDICATIONS: Include as follows: Aspirin 81 mg daily, Cipro 200 mg IV q. 12 hours, Ferrlecit 125 mg 3 times a week, Flomax 0.4 mg p.o. daily, multivitamin 1 tablet daily, Pepcid 20 mg p.o. daily, Plavix 75 mg p.o. daily, midodrine 5 mg p.o. t.i.d., Procrit 10,000 units 3 times a week, Proscar 5 mg p.o. daily, Synthroid 25 mcg daily, Tylenol, vitamin C 500 mg p.o. daily, and Zemplar 2 mcg 3 times a week. LABORATORY DATA: No new labs are available. Accu-Checks are 122, 81, 96. Urine cultures as of 08/08/2017, negative. ASSESSMENT AND PLAN: In summary Mr. Cunningham is an 82-years old elderly, -British male with a history of hypertension, coronary artery disease status post coronary artery bypass graft, gout, anemia, renal failure, with urinary tract infection status post code sepsis, abnormal LFTs with worsened renal functions, started on hemodialysis. 1. Renal failure, [id number] kidney disease versus progression of the chronic kidney disease 4. 2. Status post urinary tract infection and code sepsis. 3. Anemia. 4. Congestive heart failure with fluid overload. 5. Abnormal LFTs secondary to shock liver, secondary to hypoperfusion. PLAN: Continue dialysis 3 times a week as tolerated, continue antibiotics as per ID recommendations. Overall prognosis is guarded. Consider bedside physical therapy. The patient underwent hemodialysis today and ultrafiltration about 1.5 L. We will follow with you. Thank you for allowing me to participate in your patient's care. Hernan Peterson MD
[2017-08-11] MEDS: Levothyroxine 25 MCG TAB PO SCH (05:55)
[2017-08-11] MEDS ORDERED: Phytonadione 10 mg/ml Inj (Adult) SC STA (07:53)
[2017-08-11] MEDS: Multiple Vitamins Tab PO SCH (10:10)
--- NOTE | 2017-08-11 13:01 | PN ---
LOCATION: [facility], bed A. SUBJECTIVE: This is an 82-year-old been seen and examined in rounds without any significant clinical changes, but with poor oral intake with the complaint of bilateral knee pain. No reported active bleeding. Again, the patient still has loss of appetite good oral intake. The most recent lab results, current and the previous medication list, current and the previous medical events were reviewed, and today's blood glucose level reported to be 92, the patient still has elevated PT, where vitamin K is given. PHYSICAL EXAMINATION: GENERAL: An 82-year-old male. VITAL SIGNS: Afebrile with pulse of 92, respiratory rate of 20 to 22, blood pressure 110/74. HEENT: Show pale, dry oral mucoid membrane. Nonicteric sclerae. LUNGS: Few scattered crepitations. Decreased air entry at bases. HEART: Positive S1 and S2. ABDOMEN: Soft with mild tenderness. No mass or organomegaly. No rebound, tenderness or guarding. EXTREMITIES: With mild tenderness of both knees bilaterally with slight lower extremity edematous changes. No clubbing or cyanosis NEUROLOGIC: No reported new focal neurological deficits, sensory or motor. IMPRESSION: 1. Malnutrition with hypoalbuminemia. 2. Peptic ulcer disease. 3. Failure to thrive. 4. The patient is a candidate for percutaneous endoscopic gastrostomy insertion. 5. Mildly elevated liver function test, subsequently improved. 6. Recent known history of acute renal failure with dehydration, improved. 7. Reported bilateral pleural effusion and aspiration one year by recent history. 8. Recurrent episodes of urinary tract infection. 9. Anemia secondary to above. SUGGESTION: 1. Continue current management. 2. Dehydration. 3. Swallow evaluation. 4. We will scheduled the patient for PEG insertion upon receiving the result of the swallow evaluation as well as legal consent from the legal guardian. Katia Pardo MD cc: Katia Pardo MD
[2017-08-11 13:45] LABS: HEMATOCRIT 28.8 % (35.0-51.0); MEAN CELL VOLUME 89.7 fL (80.0-94.0); MEAN CORPUSCULAR HGB CONC 32.3 g/dL (33.0-37.0); MEAN PLATELET VOLUME 8.6 fL (7.2-11.7); RED CELL DISTRIBUTION WIDTH 17.9 % (11.5-14.5); WHITE BLOOD COUNT 9.9 K/uL (4.8-10.8)
[2017-08-11 13:55] LABS: CALCIUM 7.7 mg/dl (8.6-10.4); POTASSIUM 4.2 mmol/L (3.6-5.2)
--- NOTE | 2017-08-11 14:45 | CP.PCM.PN ---
Subjective - Date & Time of Evaluation Date of Evaluation: 08/11/17 Time of Evaluation: 06:00 - Subjective Subjective: awake / weak NAD Objective - Vital Signs/Intake and Output Vital Signs (last 24 hours): Temp Pulse Resp BP Pulse Ox 97.5 F L 95 H 20 102/66 93 L 08/11/17 08:31 08/11/17 08:31 08/11/17 08:31 08/11/17 08:31 08/11/17 08:31 Intake and Output: 08/11/17 08/11/17 06:59 18:59 Intake Total 100 Output Total 100 Balance 0 - Medications Medications: Current Medications Acetaminophen (Tylenol 325mg Tab) 650 mg PO Q4 PRN PRN Reason: Pain, moderate (4-7) Last Admin: 08/11/17 05:55 Dose: 650 mg Acetaminophen (Tylenol 325mg Tab) 650 mg PO Q6 PRN PRN Reason: FEVER ABOVE 101 OR [facility] Ascorbic Acid (Vitamin C 500 Mg Tab) 500 mg PO DAILY [facility] Last Admin: 08/11/17 10:10 Dose: 500 mg Aspirin (Aspirin Chewable) 81 mg PO DAILY [facility] Last Admin: 08/11/17 10:10 Dose: 81 mg Clopidogrel Bisulfate (Plavix) 75 mg PO DAILY [facility] Last Admin: 08/11/17 10:10 Dose: 75 mg Epoetin Jacobo (Procrit) 10,000 unit IV TTS [facility] Last Admin: 08/10/17 13:06 Dose: 10,000 unit Famotidine (Pepcid) 20 mg PO DAILY [facility] Last Admin: 08/11/17 10:10 Dose: 20 mg Ferric Sodium Gluconate Complex (Ferrlecit) 125 mg IVPB TTS [facility] Stop: 08/14/17 10:01 Last Admin: 08/10/17 13:05 Dose: 125 mg Finasteride (Proscar) 5 mg PO DAILY [facility] Last Admin: 08/11/17 10:10 Dose: 5 mg Hydralazine HCl (Apresoline) 25 mg PO BID [facility] Last Admin: 07/29/17 17:38 Dose: Not Given Ciprofloxacin (Cipro 200mg/100ml D5w) 100 mls @ 67 mls/hr IVPB Q12H [facility] Last Admin: 08/11/17 00:31 Dose: 67 mls/hr Levothyroxine Sodium (Synthroid) 25 mcg PO DAILY@0630 [facility] Last Admin: 08/11/17 05:55 Dose: 25 mcg Metoprolol Tartrate (Lopressor) 25 mg PO BID [facility] Last Admin: 07/30/17 18:16 Dose: Not Given Midodrine (Proamatine) 5 mg PO TID [facility] Last Admin: 08/11/17 10:10 Dose: 5 mg Multivitamins (Hexavitamin) 1 tab PO DAILY [facility] Last Admin: 08/11/17 10:10 Dose: 1 tab Paricalcitol (Zemplar) 2 mcg IV TTS [facility] Last Admin: 08/10/17 13:06 Dose: 2 mcg Tamsulosin HCl (Flomax) 0.4 mg PO DAILY [facility] Last Admin: 08/11/17 10:10 Dose: 0.4 mg - Labs Labs: 08/11/17 13:39 08/11/17 13:39 PT 17.1 SECONDS (9.7-12.2) H 08/09/17 19:57 INR 1.5 08/09/17 19:57 APTT 36 SECONDS (21-34) H 08/09/17 19:57 - Constitutional Appears: Non-toxic, Chronically Ill - Head Exam Head Exam: NORMOCEPHALIC - Eye Exam Eye Exam: PERRL - ENT Exam ENT Exam: Mucous Membranes Dry - Neck Exam Neck Exam: absent: Lymphadenopathy - Respiratory Exam Respiratory Exam: Decreased Breath Sounds - Cardiovascular Exam Cardiovascular Exam: REGULAR RHYTHM - GI/Abdominal Exam GI & Abdominal Exam: Distended, Soft Assessment and Plan (1) Fever Status: Acute (2) Leukocytosis Status: Acute (3) UTI (urinary tract infection) Status: Acute (4) Acute renal failure Status: Acute (5) Generalized weakness Status: Acute (6) Hyperkalemia Status: Acute (7) Troponin level elevated Status: Acute (8) UTI (urinary tract infection) due to Enterococcus Status: Acute (9) UTI (urinary tract infection) due to Enterococcus Status: Acute (10) UTI due to Klebsiella species Status: Acute (11) UTI due to Klebsiella species Status: Acute
--- NOTE | 2017-08-11 18:13 | CP.PCM.PN ---
Subjective - Date & Time of Evaluation Date of Evaluation: 08/11/17 Time of Evaluation: 18:12 - Subjective Subjective: pt is seen and examined, follow up consult is dictated #[id number] Objective - Vital Signs/Intake and Output Vital Signs (last 24 hours): Temp Pulse Resp BP Pulse Ox 97.8 F 90 20 105/65 96 08/11/17 16:00 08/11/17 16:00 08/11/17 16:00 08/11/17 16:00 08/11/17 16:00 Intake and Output: 08/11/17 08/11/17 06:59 18:59 Intake Total 350 Output Total 150 Balance 200 - Medications Medications: Current Medications Acetaminophen (Tylenol 325mg Tab) 650 mg PO Q4 PRN PRN Reason: Pain, moderate (4-7) Last Admin: 08/11/17 05:55 Dose: 650 mg Acetaminophen (Tylenol 325mg Tab) 650 mg PO Q6 PRN PRN Reason: FEVER ABOVE 101 OR [place] Ascorbic Acid (Vitamin C 500 Mg Tab) 500 mg PO DAILY [facility] Last Admin: 08/11/17 10:10 Dose: 500 mg Aspirin (Aspirin Chewable) 81 mg PO DAILY [facility] Last Admin: 08/11/17 10:10 Dose: 81 mg Clopidogrel Bisulfate (Plavix) 75 mg PO DAILY [facility] Last Admin: 08/11/17 10:10 Dose: 75 mg Epoetin Jacobo (Procrit) 10,000 unit IV TTS [facility] Last Admin: 08/10/17 13:06 Dose: 10,000 unit Famotidine (Pepcid) 20 mg PO DAILY [facility] Last Admin: 08/11/17 10:10 Dose: 20 mg Ferric Sodium Gluconate Complex (Ferrlecit) 125 mg IVPB TTS [facility] Stop: 08/14/17 10:01 Last Admin: 08/10/17 13:05 Dose: 125 mg Finasteride (Proscar) 5 mg PO DAILY [facility] Last Admin: 08/11/17 10:10 Dose: 5 mg Hydralazine HCl (Apresoline) 25 mg PO BID [facility] Last Admin: 07/29/17 17:38 Dose: Not Given Ciprofloxacin (Cipro 200mg/100ml D5w) 100 mls @ 67 mls/hr IVPB Q12H [facility] Last Admin: 08/11/17 14:30 Dose: 67 mls/hr Levothyroxine Sodium (Synthroid) 25 mcg PO DAILY@0630 [facility] Last Admin: 08/11/17 05:55 Dose: 25 mcg Metoprolol Tartrate (Lopressor) 25 mg PO BID [facility] Last Admin: 07/30/17 18:16 Dose: Not Given Midodrine (Proamatine) 5 mg PO TID [facility] Last Admin: 08/11/17 18:03 Dose: 5 mg Multivitamins (Hexavitamin) 1 tab PO DAILY [facility] Last Admin: 08/11/17 10:10 Dose: 1 tab Paricalcitol (Zemplar) 2 mcg IV TTS [facility] Last Admin: 08/10/17 13:06 Dose: 2 mcg Tamsulosin HCl (Flomax) 0.4 mg PO DAILY [facility] Last Admin: 08/11/17 10:10 Dose: 0.4 mg - Labs Labs: 08/11/17 13:39 08/11/17 13:39 PT 17.1 SECONDS (9.7-12.2) H 08/09/17 19:57 INR 1.5 08/09/17 19:57 APTT 36 SECONDS (21-34) H 08/09/17 19:57
--- NOTE | 2017-08-11 19:30 | CP.PCM.PN ---
Subjective - Date & Time of Evaluation Date of Evaluation: 08/11/17 Time of Evaluation: 15:00 - Subjective Subjective: Pt seen and evalauted, is doing better,, improving, on HD Objective - Vital Signs/Intake and Output Vital Signs (last 24 hours): Temp Pulse Resp BP Pulse Ox 97.8 F 90 20 105/65 96 08/11/17 16:00 08/11/17 16:00 08/11/17 16:00 08/11/17 16:00 08/11/17 16:00 Intake and Output: 08/11/17 08/12/17 18:59 06:59 Intake Total 350 Output Total 150 Balance 200 - Medications Medications: Current Medications Acetaminophen (Tylenol 325mg Tab) 650 mg PO Q4 PRN PRN Reason: Pain, moderate (4-7) Last Admin: 08/11/17 05:55 Dose: 650 mg Acetaminophen (Tylenol 325mg Tab) 650 mg PO Q6 PRN PRN Reason: FEVER ABOVE 101 OR [place]CIM[place]O Ascorbic Acid (Vitamin C 500 Mg Tab) 500 mg PO DAILY [facility] Last Admin: 08/11/17 10:10 Dose: 500 mg Aspirin (Aspirin Chewable) 81 mg PO DAILY [facility] Last Admin: 08/11/17 10:10 Dose: 81 mg Clopidogrel Bisulfate (Plavix) 75 mg PO DAILY [facility] Last Admin: 08/11/17 10:10 Dose: 75 mg Epoetin Jacobo (Procrit) 10,000 unit IV TTS [facility] Last Admin: 08/10/17 13:06 Dose: 10,000 unit Famotidine (Pepcid) 20 mg PO DAILY [facility] Last Admin: 08/11/17 10:10 Dose: 20 mg Ferric Sodium Gluconate Complex (Ferrlecit) 125 mg IVPB TTS [facility] Stop: 08/14/17 10:01 Last Admin: 08/10/17 13:05 Dose: 125 mg Finasteride (Proscar) 5 mg PO DAILY [facility] Last Admin: 08/11/17 10:10 Dose: 5 mg Hydralazine HCl (Apresoline) 25 mg PO BID [facility] Last Admin: 07/29/17 17:38 Dose: Not Given Ciprofloxacin (Cipro 200mg/100ml D5w) 100 mls @ 67 mls/hr IVPB Q12H [facility] Last Admin: 08/11/17 14:30 Dose: 67 mls/hr Levothyroxine Sodium (Synthroid) 25 mcg PO DAILY@0630 [facility] Last Admin: 08/11/17 05:55 Dose: 25 mcg Metoprolol Tartrate (Lopressor) 25 mg PO BID [facility] Last Admin: 07/30/17 18:16 Dose: Not Given Midodrine (Proamatine) 5 mg PO TID [facility] Last Admin: 08/11/17 18:03 Dose: 5 mg Multivitamins (Hexavitamin) 1 tab PO DAILY [facility] Last Admin: 08/11/17 10:10 Dose: 1 tab Paricalcitol (Zemplar) 2 mcg IV TTS [facility] Last Admin: 08/10/17 13:06 Dose: 2 mcg Tamsulosin HCl (Flomax) 0.4 mg PO DAILY [facility] Last Admin: 08/11/17 10:10 Dose: 0.4 mg - Labs Labs: 08/11/17 13:39 08/11/17 13:39 PT 17.1 SECONDS (9.7-12.2) H 08/09/17 19:57 INR 1.5 08/09/17 19:57 APTT 36 SECONDS (21-34) H 08/09/17 19:57 - Constitutional Appears: No Acute Distress - Head Exam Head Exam: ATRAUMATIC, NORMAL INSPECTION, NORMOCEPHALIC - Eye Exam Eye Exam: EOMI, Normal appearance, PERRL Pupil Exam: NORMAL ACCOMODATION, PERRL - Neck Exam Neck Exam: Full ROM, Normal Inspection. absent: Lymphadenopathy - Respiratory Exam Respiratory Exam: Decreased Breath Sounds, Rales, NORMAL BREATHING PATTERN - Cardiovascular Exam Cardiovascular Exam: REGULAR RHYTHM, +S1, +S2. absent: Murmur - GI/Abdominal Exam GI & Abdominal Exam: Soft, Normal Bowel Sounds. absent: Tenderness Assessment and Plan (1) Fever Status: Acute (2) Leukocytosis Status: Acute (3) UTI (urinary tract infection) Status: Acute (4) Leg ulcer Status: Acute (5) Toxic metabolic encephalopathy Status: Acute
--- NOTE | 2017-08-12 00:23 | PN ---
FOLLOWUP RENAL CONSULTATION LOCATION: The patient is located in room 357, bed A. REQUESTING PHYSICIAN: Daniel Coyle MD REASON FOR FOLLOWUP: Renal failure, for continuation of hemodialysis. HISTORY OF PRESENT ILLNESS: Mr. Cunningham is an 82 years old elderly -[place] male with a past medical history significant for longstanding hypertension; coronary artery disease, status post CABG; tophaceous gout; CHF; chronic kidney disease stage IV, was admitted with altered mental status and fever and worsening renal function. The patient is being treated for urosepsis. His hospital course was complicated by code sepsis and also shock liver requiring transfer to ICU. Subsequently, the patient was started on hemodialysis for worsening renal function. Now, the patient is on hemodialysis three times a week. The patient is markedly fluid overloaded, unable to tolerate ultrafiltration. The patient is awake, following simple commands, confused, not in distress. PHYSICAL EXAMINATION: VITAL SIGNS: As follows; blood pressure 105/65, pulse 90, respirations 20, temperature 97.8, saturation 96%. Height 6 feet 3 inches and weight is 183 pounds. GENERAL: Mr. Cunningham is an 82 years old elderly -[place] male, moderately-built, moderately-nourished, not in distress. HEENT: Pupils normal, reactive to light and accommodation. Conjunctivae are pink. Sclerae anicteric. Tongue is moist. Trachea is midline. LUNGS: Symmetric on both sides. Bilateral breath sounds present. Bilateral crackles present at bases. CARDIOVASCULAR SYSTEM: [place] at the fifth intercostal space, midclavicular line. S1 and S2 audible. No murmur or gallop. The patient has midsternal scar present from the previous CABG. ABDOMEN: Is normal in appearance. Soft, tympanic. No guarding, no rigidity. No hepatosplenomegaly. CENTRAL NERVOUS SYSTEM: The patient is awake, following simple commands. Cranial nerves II through XII grossly intact. Sensory system is normal. Motor system within normal limits. EXTREMITIES: No cyanosis, no clubbing. The patient has 2+ to 3+ edema in both upper and lower extremities. CURRENT MEDICATIONS: Include as follows. The patient is on NG tube feeding and also aspirin 81 mg daily, Cipro 200 mg q.12 hours, Ferrlecit 125 mg three times a week, Flomax 0.4 mg daily, multivitamin 1 tablet daily, hydralazine and metoprolol are on hold, Pepcid 20 mg p.o. daily, Plavix 75 mg daily, midodrine 5 mg p.o. t.i.d., Procrit 10,000 units three times a week, Proscar 5 mg daily, levothyroxine 25 mcg p.o. daily, Tylenol and vitamin C 500 mg p.o. daily, Zemplar 2 mcg three times a week. The patient was given influenza vaccine on 06/28/2017. LABORATORY DATA: Include as follows as of 08/11/2017; WBC 9.9, hemoglobin 9.3, hematocrit is 28.8, platelets 187. Sodium 136, potassium 4.2, chloride 99, CO2 of 27, BUN 47, creatinine 2.7, glucose 112, calcium 7.7. Chest x-ray as of 08/04/2017, no change in consolidation versus pulmonary edema in the right lung, persistent pleural effusions, larger on the right, persistent cardiomegaly and pulmonary venous congestion. Urine culture as of 08/08/2017, no growth. ASSESSMENT: In summary, Mr. Cunningham is an 82 years old elderly -[place]ij[place] male with a history of hypertension; coronary artery disease, status post coronary artery bypass graft; congestive heart failure; gout; chronic kidney disease stage IV with worsening renal function, being treated for UTI. 1. Renal failure, acute on chronic kidney disease versus progression of chronic kidney disease IV. 2. End-stage renal disease. 3. Urosepsis. 4. Anemia. 5. Fluid overload. 6. Congestive heart failure versus pneumonia. PLAN: Continue IV antibiotics as per ID recommendation. We will schedule for hemodialysis in a.m. Overall prognosis is very poor. Continue his current medications. Thank you for allowing me to participate in your patient's care. Continue NG tube feedings. Hernan Peterson MD
[2017-08-12] MEDS: Ciprofloxacin 200mg/100ml D5W 100 ML IVPB SCH (01:33)
[2017-08-12] MEDS: Levothyroxine 25 MCG TAB PO SCH (06:15)
--- NOTE | 2017-08-12 08:07 | PN ---
RENAL FOLLOWUP CONSULTATION LOCATION: The patient is located in 357, bed A. REQUESTED BY: Daniel Coyle MD REASON FOR FOLLOWUP: End-stage renal disease for continuation of the hemodialysis. SUBJECTIVE: Mr. Cunningham is an 82 years old elderly -[place]auritan[place] male with a past medical history significant for longstanding hypertension, coronary artery disease status post CABG, CHF, chronic kidney disease with stage IV, who was recently admitted to [facility] on 05/27/2017 for rhabdomyolysis after sustained a fall and also CHF and subsequently, the patient was transferred to senior living on 06/06/2017, now the patient was admitted on 07/24/2017 with a chief complaint of altered mental status and low grade fever, shortness of breath. The patient is being treated for urosepsis and septic shock and shock liver with worsening renal function requiring initiation of the hemodialysis. The patient is on hemodialysis three times a week Saturday, , Saturday. The patient is still markedly fluid overloaded with borderline blood pressure, unable to tolerate the UF. The patient denies any chest pain, palpitation. Denies any fever, cough. Denies any abdominal pain. PT evaluation is at bedside this morning. OBJECTIVE: VITAL SIGNS: As follows; blood pressure this morning 96/59, pulse 94, respirations 20, temperature 97.5, saturation 95% on 3 liters nasal cannula. Height 6 feet 3 inches and weight is 183 pounds. GENERAL: Mr. Cunningham is an 82 years old elderly -[place]auritan[place] male, moderately-built, moderately-nourished, not in acute distress. HEENT: Pupils normal, react to light and accommodation. Conjunctivae pink. Sclerae anicteric. Tongue is moist. Trachea is midline. LUNGS: Symmetric on both sides. Bilateral breath sounds present. Bilateral crackles present. CVS: [place] at the fifth intercostal space, midclavicular line. S1 and S2 audible. No murmur or gallop. The patient has a midsternal scar present from the previous CABG. ABDOMEN: Normal in appearance. Soft, tympanic. No guarding. No hepatosplenomegaly. RN ORTHO: The patient is awake, oriented x1 to 2. Following simple commands. EXTREMITIES: No cyanosis, no clubbing. The patient has 2+ edema in both upper and lower extremities. CURRENT MEDICATIONS: Include as follows; hydralazine on hold, metoprolol on hold, aspirin 81 mg p.o. daily, Cipro 200 mg q.12 hours, Ferrlecit 125 mg three times a week, Flomax 0.4 mg p.o. daily, subcu heparin 5000 q.12 hours and multivitamin 1 tablet daily, Pepcid 20 mg daily, Plavix 75 mg daily, midodrine 5 mg p.o. t.i.d., Procrit 10,000 units three times a week, Proscar 5 mg p.o. daily, levothyroxine 25 mcg p.o. daily, Tylenol and vitamin C 500 mg p.o. daily, Zemplar 2 mcg three times a week Saturday, , Saturday. LABORATORY DATA: Accu-Cheks 116 and 96. No other labs are available. IMPRESSION AND PLAN: In summary, Mr. Cunningham is an 82 years old elderly -[place]auritan[place] male with a past medical history significant for hypertension, coronary artery disease status post CABG, tophaceous gout, renal failure, anemia, congestive heart failure, was admitted with low grade fever, altered mental status and shortness of breath with worsening renal function and abnormal LFTs and anemia, status post transfusion. 1. Renal failure, acute on chronic kidney disease versus progression of the chronic kidney disease due to end-stage renal disease. Continue hemodialysis three times a week Saturday, , Saturday. 2. Anemia, secondary to renal failure and sepsis. Continue Epogen three times a week. 3. Urosepsis. 4. Abnormal LFTs secondary to shock liver and hypoperfusion, continue to monitor the liver function tests and check CBC and CMP in a.m. and also check phosphorus level and consider to repeat chest x-ray and the echocardiogram for left ventricular ejection fraction. As the patient's blood pressure is not improving even after blood pressure medications and also we will increase midodrine to 10 mg p.o. t.i.d. We will schedule for hemodialysis in a.m. and ultrafiltration as tolerated. Overall prognosis is guarded. Thank you for allowing me to participate in your patient's care. Hernan Peterson MD
[2017-08-12] MEDS: Multiple Vitamins Tab PO SCH (09:09)
--- NOTE | 2017-08-12 12:56 | CP.PCM.PN ---
Subjective - Date & Time of Evaluation Date of Evaluation: 08/12/17 Time of Evaluation: 12:56 - Subjective Subjective: pt is seen and examined, follow up consult is dictated #[id number] Objective - Vital Signs/Intake and Output Vital Signs (last 24 hours): Temp Pulse Resp BP Pulse Ox 97.3 F L 87 20 106/67 92 L 08/12/17 08:15 08/12/17 08:15 08/12/17 08:15 08/12/17 08:15 08/12/17 08:15 Intake and Output: 08/12/17 08/12/17 06:59 18:59 Intake Total 200 Output Total 50 Balance 150 - Medications Medications: Current Medications Acetaminophen (Tylenol 325mg Tab) 650 mg PO Q4 PRN PRN Reason: Pain, moderate (4-7) Last Admin: 08/12/17 09:11 Dose: 650 mg Acetaminophen (Tylenol 325mg Tab) 650 mg PO Q6 PRN PRN Reason: FEVER ABOVE 101 OR [place] Ascorbic Acid (Vitamin C 500 Mg Tab) 500 mg PO DAILY [facility] Last Admin: 08/12/17 09:13 Dose: 500 mg Aspirin (Aspirin Chewable) 81 mg PO DAILY [facility] Last Admin: 08/12/17 09:09 Dose: 81 mg Ciprofloxacin (Cipro) 250 mg PO Q12 [facility] Last Admin: 08/12/17 09:10 Dose: 250 mg Clopidogrel Bisulfate (Plavix) 75 mg PO DAILY [facility] Last Admin: 08/12/17 09:09 Dose: 75 mg Epoetin Jacobo (Procrit) 10,000 unit IV TTS [facility] Last Admin: 08/10/17 13:06 Dose: 10,000 unit Famotidine (Pepcid) 20 mg PO DAILY [facility] Last Admin: 08/12/17 09:09 Dose: 20 mg Ferric Sodium Gluconate Complex (Ferrlecit) 125 mg IVPB TTS [facility] Stop: 08/14/17 10:01 Last Admin: 08/10/17 13:05 Dose: 125 mg Finasteride (Proscar) 5 mg PO DAILY [facility] Last Admin: 08/12/17 09:09 Dose: 5 mg Hydralazine HCl (Apresoline) 25 mg PO BID [facility] Last Admin: 07/29/17 17:38 Dose: Not Given Levothyroxine Sodium (Synthroid) 25 mcg PO DAILY@0630 [facility] Last Admin: 08/12/17 06:15 Dose: 25 mcg Metoprolol Tartrate (Lopressor) 25 mg PO BID [facility] Last Admin: 07/30/17 18:16 Dose: Not Given Midodrine (Proamatine) 5 mg PO TID [facility] Last Admin: 08/12/17 09:10 Dose: 5 mg Multivitamins (Hexavitamin) 1 tab PO DAILY [facility] Last Admin: 08/12/17 09:09 Dose: 1 tab Paricalcitol (Zemplar) 2 mcg IV TTS [facility] Last Admin: 08/10/17 13:06 Dose: 2 mcg Tamsulosin HCl (Flomax) 0.4 mg PO DAILY [facility] Last Admin: 08/12/17 09:09 Dose: 0.4 mg - Labs Labs: 08/11/17 13:39 08/11/17 13:39 PT 17.1 SECONDS (9.7-12.2) H 08/09/17 19:57 INR 1.5 08/09/17 19:57 APTT 36 SECONDS (21-34) H 08/09/17 19:57
--- NOTE | 2017-08-12 13:08 | RAD ---
HISTORY: sob COMPARISON: 08/04/2017 FINDINGS: LUNGS: Increasing bilateral infiltrates are seen right greater than left. PLEURA: Bilateral pleural effusions CARDIOVASCULAR: Moderate cardiomegaly. OSSEOUS STRUCTURES: No significant abnormalities. VISUALIZED UPPER ABDOMEN: Normal. OTHER FINDINGS: Right internal jugular dialysis catheter IMPRESSION: Increasing bilateral infiltrates and effusions
--- NOTE | 2017-08-12 14:11 | PN ---
LOCATION: [facility], bed A. SUBJECTIVE: This is an 82-year-old male, seen and examined in rounds without significant clinical changes or reported active bleeding complaining bilateral knee pain with very poor oral intake. The entire chart is reviewed including but not limited to the most recent lab and radiology study results, current and the previous medication list, current and previous medical events. Today's lab showed blood glucose level of 111 with recently reported low hemoglobin of 9.3, low hematocrit 28.8 with increased BUN at 47, creatinine of 2.7 with low calcium 0.7. PHYSICAL EXAMINATION: GENERAL: An 82-year-old male seen and examined in rounds. Case discussed at length with the staff in the floor. VITAL SIGNS: Afebrile with pulse of 84, respiratory rate 20 to 22, blood pressure 110/64. HEENT: Showed pale, dry, oral mucoid membrane, nonicteric sclerae. LUNGS: Few scattered crepitation. Decreased air entry at bases. HEART: Positive S1 and S2. ABDOMEN: Soft with mild distention. No mass or organomegaly. No rebound tenderness or guarding. EXTREMITIES: Without significant clubbing, cyanosis, or edema. NEUROLOGIC: No reported new neurological deficits, sensory or motor. IMPRESSION: 1. Malnutrition with hypoalbuminemia. 2. Failure to thrive. 3. Peptic ulcer disease. 4. Reported mildly elevated liver function test, improving. 5. Known history of acute renal failure and dehydration, gradually improving. 6. Aspiration pneumonia, bilateral pleural effusion. 7. Recurrent urinary tract infection. 8. Anemia secondary to above. 9. The patient is a candidate for PEG insertion. SUGGESTION: 1. Agree with your plan. 2. Awaiting swallow evaluation. 3. Prefer hyperal. 4. We will schedule for PEG insertion after receiving consent from the family, otherwise close observation to follow. Katia Pardo MD cc: Katia Pardo MD
--- NOTE | 2017-08-12 17:51 | CP.PCM.CON ---
History of Present Illness - History of Present Illness History of Present Illness: 82 y/o M with a PMHx of CAD, HTN, CKD, dementia, obstructive uropathy, urosepsis admitted 07/24 and transferred to ICU 08/01-08/06 where he received permacath. Pt is currently undergoing dialysis 3x weekly. Pt seen and examined at bedside. Patient is responsive but not oriented to place or time. Pt unable to give hx or ros. Pulmonology was consulted because patient had a worsening pulse ox of 90-92% on 4L of O2. Chest X-ray on 08/12 showed worsening bilateral infiltrate alba on right side and increase in effusions compared to Chest X-ray on 08/04. Review of Systems - Review of Systems All systems: reviewed and no additional remarkable complaints except (Shortness of breath) Past Patient History - Past Medical History & Family History Past Medical History?: Yes - Past Social History Smoking Status: Former Smoker - CARDIAC Hx Cardiac Disorders: Yes (S/P CABG) Hx Hypertension: Yes - PULMONARY Hx Respiratory Disorders: No - NEUROLOGICAL Hx Neurological Disorder: No - HEENT Hx HEENT Problems: No - RENAL Other/Comment: Chronic Kidney Disease. Retention of Urine - ENDOCRINE/METABOLIC Hx Diabetes Mellitus Type 2: Yes - HEMATOLOGICAL/ONCOLOGICAL Hx Blood Disorders: No - INTEGUMENTARY Other/Comment: Pressure Ulcer - MUSCULOSKELETAL/RHEUMATOLOGICAL Hx Arthritis: Yes - GASTROINTESTINAL Hx Gastrointestinal Disorders: Yes Hx Gastritis: Yes - GENITOURINARY/GYNECOLOGICAL Hx Genitourinary Disorders: Yes Other/Comment: Obstructive and Reflux Uropathy - PSYCHIATRIC Hx Substance Use: No - SURGICAL HISTORY Hx Surgeries: Yes Other/Comment: "Quadruple bypass" - ANESTHESIA Hx Anesthesia: Yes Hx Anesthesia Reactions: No Hx Malignant Hyperthermia: No Meds Allergies/Adverse Reactions: Allergies Allergy/AdvReac Type Severity Reaction Status Date / Time No Known Allergies Allergy Verified 05/27/17 05:37 - Medications Medications: Current Medications Acetaminophen (Tylenol 325mg Tab) 650 mg PO Q4 PRN PRN Reason: Pain, moderate (4-7) Last Admin: 08/12/17 09:11 Dose: 650 mg Acetaminophen (Tylenol 325mg Tab) 650 mg PO Q6 PRN PRN Reason: FEVER ABOVE 101 OR [place] Ascorbic Acid (Vitamin C 500 Mg Tab) 500 mg PO DAILY [facility] Last Admin: 08/12/17 09:13 Dose: 500 mg Aspirin (Aspirin Chewable) 81 mg PO DAILY [facility] Last Admin: 08/12/17 09:09 Dose: 81 mg Ciprofloxacin (Cipro) 250 mg PO Q12 [facility] Last Admin: 08/12/17 09:10 Dose: 250 mg Clopidogrel Bisulfate (Plavix) 75 mg PO DAILY [facility] Last Admin: 08/12/17 09:09 Dose: 75 mg Epoetin Jacobo (Procrit) 10,000 unit IV TTS [facility] Last Admin: 08/10/17 13:06 Dose: 10,000 unit Famotidine (Pepcid) 20 mg PO DAILY [facility] Last Admin: 08/12/17 09:09 Dose: 20 mg Ferric Sodium Gluconate Complex (Ferrlecit) 125 mg IVPB TTS [facility] Stop: 08/14/17 10:01 Last Admin: 08/10/17 13:05 Dose: 125 mg Finasteride (Proscar) 5 mg PO DAILY [facility] Last Admin: 08/12/17 09:09 Dose: 5 mg Hydralazine HCl (Apresoline) 25 mg PO BID [facility] Last Admin: 07/29/17 17:38 Dose: Not Given Levothyroxine Sodium (Synthroid) 25 mcg PO DAILY@0630 [facility] Last Admin: 08/12/17 06:15 Dose: 25 mcg Metoprolol Tartrate (Lopressor) 25 mg PO BID [facility] Last Admin: 07/30/17 18:16 Dose: Not Given Midodrine (Proamatine) 5 mg PO TID [facility] Last Admin: 08/12/17 14:50 Dose: 5 mg Multivitamins (Hexavitamin) 1 tab PO DAILY [facility] Last Admin: 08/12/17 09:09 Dose: 1 tab Paricalcitol (Zemplar) 2 mcg IV TTS [facility] Last Admin: 08/10/17 13:06 Dose: 2 mcg Tamsulosin HCl (Flomax) 0.4 mg PO DAILY [facility] Last Admin: 08/12/17 09:09 Dose: 0.4 mg Physical Exam - Head Exam Head Exam: ATRAUMATIC, NORMOCEPHALIC - Eye Exam Eye Exam: Normal appearance - ENT Exam ENT Exam: Mucous Membranes Moist - Neck Exam Neck exam: Positive for: Normal Inspection - Respiratory Exam Respiratory Exam: Rales - Cardiovascular Exam Cardiovascular Exam: REGULAR RHYTHM - GI/Abdominal Exam GI & Abdominal Exam: Normal Bowel Sounds Results - Vital Signs Recent Vital Signs: Last Vital Signs Temp 97.2 F L 08/12/17 16:00 Pulse 86 08/12/17 16:00 Resp 22 08/12/17 16:00 BP 113/66 08/12/17 16:00 Pulse Ox 93 L 08/12/17 16:00 - Labs Result Diagrams: 08/11/17 13:39 08/11/17 13:39 Labs: Laboratory Results - last 24 hr 08/10/17 08/11/17 08/12/17 00:25 21:16 01:28 POC Glucose (mg/dL) 122 H 109 111 H 08/12/17 08/12/17 05:59 11:08 POC Glucose (mg/dL) 98 114 H Assessment & Plan (1) Dyspnea Status: Acute Comment: Assessment: 82 y/o M with a PMHx of CAD, HTN, CKD, dementia and obstructive uropathy, urosepsis presents with hypoxia. fluid overload. r/o pneumonia. r/o pulmonary edema. Plan: ABG. hemodialysis. blood cultures (? )
--- NOTE | 2017-08-12 23:26 | CP.PCM.PN ---
Subjective - Date & Time of Evaluation Date of Evaluation: 08/12/17 Time of Evaluation: 19:00 - Subjective Subjective: Pt seen and examined at bedside, remains weak and confused, apetite is poor Objective - Vital Signs/Intake and Output Vital Signs (last 24 hours): Temp Pulse Resp BP Pulse Ox 97.2 F L 86 22 113/66 93 L 08/12/17 16:00 08/12/17 16:00 08/12/17 16:00 08/12/17 16:00 08/12/17 16:00 Intake and Output: 08/12/17 08/13/17 18:59 06:59 Output Total 250 Balance -250 - Medications Medications: Current Medications Acetaminophen (Tylenol 325mg Tab) 650 mg PO Q4 PRN PRN Reason: Pain, moderate (4-7) Last Admin: 08/12/17 09:11 Dose: 650 mg Acetaminophen (Tylenol 325mg Tab) 650 mg PO Q6 PRN PRN Reason: FEVER ABOVE 101 OR [place] Ascorbic Acid (Vitamin C 500 Mg Tab) 500 mg PO DAILY [facility] Last Admin: 08/12/17 09:13 Dose: 500 mg Aspirin (Aspirin Chewable) 81 mg PO DAILY [facility] Last Admin: 08/12/17 09:09 Dose: 81 mg Ciprofloxacin (Cipro) 250 mg PO Q12 [facility] Last Admin: 08/12/17 21:58 Dose: 250 mg Clopidogrel Bisulfate (Plavix) 75 mg PO DAILY [facility] Last Admin: 08/12/17 09:09 Dose: 75 mg Epoetin Jacobo (Procrit) 10,000 unit IV TTS [facility] Last Admin: 08/10/17 13:06 Dose: 10,000 unit Famotidine (Pepcid) 20 mg PO DAILY [facility] Last Admin: 08/12/17 09:09 Dose: 20 mg Ferric Sodium Gluconate Complex (Ferrlecit) 125 mg IVPB TTS [facility] Stop: 08/14/17 10:01 Last Admin: 08/10/17 13:05 Dose: 125 mg Finasteride (Proscar) 5 mg PO DAILY [facility] Last Admin: 08/12/17 09:09 Dose: 5 mg Hydralazine HCl (Apresoline) 25 mg PO BID [facility] Last Admin: 07/29/17 17:38 Dose: Not Given Levothyroxine Sodium (Synthroid) 25 mcg PO DAILY@0630 [facility] Last Admin: 08/12/17 06:15 Dose: 25 mcg Metoprolol Tartrate (Lopressor) 25 mg PO BID [facility] Last Admin: 07/30/17 18:16 Dose: Not Given Midodrine (Proamatine) 5 mg PO TID [facility] Last Admin: 08/12/17 18:22 Dose: 5 mg Multivitamins (Hexavitamin) 1 tab PO DAILY [facility] Last Admin: 08/12/17 09:09 Dose: 1 tab Paricalcitol (Zemplar) 2 mcg IV TTS [facility] Last Admin: 08/10/17 13:06 Dose: 2 mcg Tamsulosin HCl (Flomax) 0.4 mg PO DAILY [facility] Last Admin: 08/12/17 09:09 Dose: 0.4 mg - Labs Labs: 08/11/17 13:39 08/11/17 13:39 PT 17.1 SECONDS (9.7-12.2) H 08/09/17 19:57 INR 1.5 08/09/17 19:57 APTT 36 SECONDS (21-34) H 08/09/17 19:57 Assessment and Plan (1) Fever Status: Acute (2) Leukocytosis Status: Acute (3) UTI (urinary tract infection) Status: Acute (4) Leg ulcer Status: Acute (5) Toxic metabolic encephalopathy Status: Acute
--- NOTE | 2017-08-12 23:57 | PN ---
FOLLOWUP RENAL CONSULTATION: LOCATION: The patient is located in room 357, bed A. REQUESTING PHYSICIAN: Daniel Coyle MD REASON FOR FOLLOWUP: Acute renal failure, chronic kidney disease on hemodialysis three times a week, for further evaluation. HISTORY OF PRESENT ILLNESS: Mr. Cunningham is an 82 years old elderly -[place] male with past medical history significant for longstanding hypertension; coronary artery disease, status post CABG; CHF; gout; CKD IV was admitted from the [facility] with altered mental status and low-grade fever and found to have urosepsis and found to have worsening renal function, subsequently the hospital course complicated by code sepsis and shock liver requiring transfer to ICU with worsening renal function and CHF. The patient was started on hemodialysis three times a week. The patient is not in distress. The patient is somewhat confused and follows simple commands. No significant improvement since initiation of the hemodialysis. The patient's is at bedside. The patient wants to go on the bridge, is confused. PHYSICAL EXAMINATION: VITAL SIGNS: As follows; blood pressure this morning 106/67, pulse 87, respiration 20, temperature 97.3, saturation 92%. Height 6 feet 3 inches and weight is 183 pounds. GENERAL: Mr. Cunningham is an 82 years old elderly male, moderately-built, moderately-nourished, not in distress. HEENT: Pupils are normal, reactive to light and accommodation. Conjunctivae pink. Sclerae anicteric. Tongue is moist, trachea is midline. LUNGS: Symmetric on both sides. Bilateral breath sounds present. Bilateral basal crackles present. CARDIOVASCULAR SYSTEM: [place] at the fifth intercostal space, midclavicular line. S1 and S2 audible. No murmur, no gallop. ABDOMEN: Normal in appearance, soft, tympanic. No guarding, no rigidity, no hepatosplenomegaly. CENTRAL NERVOUS SYSTEM: The patient is awake, confused, following 1 or 2 simple commands. Cranial nerves II through XII grossly intact except hard in hearing. EXTREMITIES: No cyanosis, no clubbing. The patient has 2+ edema in both upper and lower extremities. The patient also has superficial ulcer on the right forearm from the previous IV medication administration, questionable Levophed in ICU. CURRENT MEDICATIONS: Include as follows, aspirin 81 mg daily, Cipro 250 mg p.o. q.12 hours, Ferrlecit 125 mg IV three times a week, Flomax 0.4 mg daily, hexavitamin 1 tablet daily and Pepcid 20 mg p.o. daily and Plavix 75 mg daily, midodrine 5 mg p.o. t.i.d., Procrit 10,000 units times a week, Proscar 5 mg daily, levothyroxine 25 mcg daily, Tylenol and ascorbic acid and Zemplar 2 mcg three times a week. Accu-Cheks as of 08/12/2017; 111 and 98 and 114. Chest x-ray as of 08/12/2017; Lungs: Increasing bilateral infiltrates are seen, right greater than the left. Pleura: Bilateral pleural effusions. IMPRESSION: Increasing bilateral infiltrates and effusions. In summary, Mr. Cunningham is an 82 years old elderly -[place]ian male with a history of hypertension; coronary artery disease, status post coronary artery bypass graft; congestive heart failure; chronic kidney disease with worsening renal function, status post urinary tract infection and code sepsis and shock liver with worsening renal function, on hemodialysis and fluid overload. 1. Renal failure, acute on chronic kidney disease versus progression of the chronic kidney disease IV to end-stage renal disease. 2. Anemia secondary to renal failure and sepsis. 3. Fluid overload. 4. Pneumonia with pleural effusion. 5. Coronary artery disease, status post coronary artery bypass graft. PLAN: We will continue hemodialysis three times a week until family decides termination. Continue IV antibiotics as per ID recommendations and consider to repeat echocardiogram for left ventricular ejection fraction and increase midodrine to 10 mg p.o. t.i.d. Discussed with the patient's at bedside regarding the patient's overall condition and poor prognosis. No decision about DNR at this time and she would like to discuss with her son and she will inform us. We will follow with you. Thank you for allowing me to participate in your patient's care. Hernan Peterson MD
[2017-08-13] MEDS: Levothyroxine 25 MCG TAB PO SCH (05:55)
--- NOTE | 2017-08-13 10:07 | CP.PCM.PN ---
Subjective - Date & Time of Evaluation Date of Evaluation: 08/13/17 Time of Evaluation: 10:06 - Subjective Subjective: pt is seen and examined, follow up consult is dictated #[id number] seen in hd, uf 2 lit stable tx Objective - Vital Signs/Intake and Output Vital Signs (last 24 hours): Temp Pulse Resp BP Pulse Ox 97.2 F L 88 18 111/62 92 L 08/13/17 08:55 08/13/17 08:55 08/13/17 08:55 08/13/17 09:40 08/13/17 08:55 Intake and Output: 08/13/17 08/13/17 06:59 18:59 Intake Total 250 Output Total 650 Balance -400 - Medications Medications: Current Medications Acetaminophen (Tylenol 325mg Tab) 650 mg PO Q4 PRN PRN Reason: Pain, moderate (4-7) Last Admin: 08/12/17 09:11 Dose: 650 mg Acetaminophen (Tylenol 325mg Tab) 650 mg PO Q6 PRN PRN Reason: FEVER ABOVE 101 OR [place] Ascorbic Acid (Vitamin C 500 Mg Tab) 500 mg PO DAILY [facility] Last Admin: 08/12/17 09:13 Dose: 500 mg Aspirin (Aspirin Chewable) 81 mg PO DAILY [facility] Last Admin: 08/12/17 09:09 Dose: 81 mg Ciprofloxacin (Cipro) 250 mg PO Q12 [facility] Last Admin: 08/12/17 21:58 Dose: 250 mg Clopidogrel Bisulfate (Plavix) 75 mg PO DAILY [facility] Last Admin: 08/12/17 09:09 Dose: 75 mg Epoetin Jacobo (Procrit) 10,000 unit IV TTS [facility] Last Admin: 08/10/17 13:06 Dose: 10,000 unit Famotidine (Pepcid) 20 mg PO DAILY [facility] Last Admin: 08/12/17 09:09 Dose: 20 mg Ferric Sodium Gluconate Complex (Ferrlecit) 125 mg IVPB TTS [facility] Stop: 08/14/17 10:01 Last Admin: 08/10/17 13:05 Dose: 125 mg Finasteride (Proscar) 5 mg PO DAILY [facility] Last Admin: 08/12/17 09:09 Dose: 5 mg Hydralazine HCl (Apresoline) 25 mg PO BID [facility] Last Admin: 07/29/17 17:38 Dose: Not Given Levothyroxine Sodium (Synthroid) 25 mcg PO DAILY@0630 [facility] Last Admin: 08/13/17 05:55 Dose: 25 mcg Megestrol Acetate (Megace) 400 mg PO DAILY [facility] Metoprolol Tartrate (Lopressor) 25 mg PO BID [facility] Last Admin: 07/30/17 18:16 Dose: Not Given Midodrine (Proamatine) 5 mg PO TID [facility] Last Admin: 08/12/17 18:22 Dose: 5 mg Multivitamins (Hexavitamin) 1 tab PO DAILY [facility] Last Admin: 08/12/17 09:09 Dose: 1 tab Paricalcitol (Zemplar) 2 mcg IV TTS [facility] Last Admin: 08/10/17 13:06 Dose: 2 mcg Tamsulosin HCl (Flomax) 0.4 mg PO DAILY [facility] Last Admin: 08/12/17 09:09 Dose: 0.4 mg - Labs Labs: 08/11/17 13:39 08/11/17 13:39 PT 17.1 SECONDS (9.7-12.2) H 08/09/17 19:57 INR 1.5 08/09/17 19:57 APTT 36 SECONDS (21-34) H 08/09/17 19:57
[2017-08-13] MEDS ORDERED: Albumin Human 25% (12.5 gm/50 ml) IV ONE ×2 (10:30→10:45)
[2017-08-13] MEDS: Paricalcitol 2 mcg/ml Inj IV SCH (11:06)
[2017-08-13] MEDS: Epoetin Alfa 10,000 unit/ml Dialysis IV SCH (11:09)
[2017-08-13] MEDS: Megestrol Acetate 40 mg/ml Cup PO SCH (11:22)
[2017-08-13] MEDS: Ferric Sodium Gluconat Complex 62.5 mg/5 ml Vial IVPB SCH ×2 (11:22→11:28)
[2017-08-13] MEDS: Multiple Vitamins Tab PO SCH (11:22)
--- NOTE | 2017-08-13 14:33 | PN ---
LOCATION: [facility], bed A. SUBJECTIVE: This is an 82-year-old male, seen and examined in rounds without significant clinical changes, appear to be somewhat more awake, respond on occasions. No reported active bleeding but again with less oral intake. The entire chart is reviewed including but not limited to the most recent lab and radiology study results, current and the previous medication list, current and previous medical events and today's lab reported to be with blood glucose level of 85. PHYSICAL EXAMINATION: GENERAL: An 82-year-old male. VITAL SIGNS: Afebrile with pulse of 86, respiratory rate 20 to 22 with blood pressure 116/62. HEENT: Showed pale, dry oral mucoid membrane, nonicteric sclerae. LUNGS: Few scattered crepitation. Decreased air entry at bases. HEART: Positive S1 and S2. ABDOMEN: Soft with mild generalized tenderness. No mass or organomegaly. No rebound tenderness or guarding. EXTREMITIES: With evidence of mild lower extremities edematous changes. No clubbing or cyanosis. NEUROLOGIC: No reported new neurological deficits, sensory or motor. It has to be mentioned that yesterday chest x-ray showed increased bilateral infiltrate and effusion. IMPRESSION: 1. Malnutrition, hypoalbuminemia with failure to thrive. 2. Bilateral pneumonia with pleural effusion. 3. Peptic ulcer disease by history. 4. Known history of acute renal failure, dehydration. 5. Recurrent urinary tract infection, on antibiotics. 6. Anemia mostly likely secondary to above. 7. The patient is a candidate for PEG insertion. SUGGESTION: 1. Agree with your plan. 2. Central hyperalimentation. 3. Treat underlying pulmonary infectious process before any aggressive GI procedure takes place. 4. Still awaiting family legal consent for PEG. Katia Pardo MD cc: Katia Pardo MD
--- NOTE | 2017-08-13 23:10 | CP.PCM.PN ---
Subjective - Date & Time of Evaluation Date of Evaluation: 08/13/17 Time of Evaluation: 09:00 - Subjective Subjective: Pt was seen and evalauted at bedside this morning , pt is confused, has poor apetite, is coughing, short of breath Objective - Vital Signs/Intake and Output Vital Signs (last 24 hours): Temp Pulse Resp BP Pulse Ox 97.1 F L 86 20 107/67 95 08/13/17 15:00 08/13/17 15:00 08/13/17 15:00 08/13/17 15:00 08/13/17 15:00 Intake and Output: 08/13/17 08/14/17 18:59 06:59 Intake Total 120 Balance 120 - Medications Medications: Current Medications Acetaminophen (Tylenol 325mg Tab) 650 mg PO Q4 PRN PRN Reason: Pain, moderate (4-7) Last Admin: 08/13/17 22:39 Dose: 650 mg Acetaminophen (Tylenol 325mg Tab) 650 mg PO Q6 PRN PRN Reason: FEVER ABOVE 101 OR [place] Ascorbic Acid (Vitamin C 500 Mg Tab) 500 mg PO DAILY [facility] Last Admin: 08/13/17 11:23 Dose: Not Given Aspirin (Aspirin Chewable) 81 mg PO DAILY [facility] Last Admin: 08/12/17 09:09 Dose: 81 mg Ciprofloxacin (Cipro) 250 mg PO Q12 [facility] Last Admin: 08/13/17 22:41 Dose: 250 mg Clopidogrel Bisulfate (Plavix) 75 mg PO DAILY [facility] Last Admin: 08/13/17 11:23 Dose: Not Given Epoetin Jacobo (Procrit) 10,000 unit IV TTS [facility] Last Admin: 08/13/17 11:09 Dose: 10,000 unit Famotidine (Pepcid) 20 mg PO DAILY [facility] Last Admin: 08/13/17 11:23 Dose: Not Given Ferric Sodium Gluconate Complex (Ferrlecit) 125 mg IVPB TTS [facility] Stop: 08/14/17 10:01 Last Admin: 08/13/17 11:28 Dose: 125 mg Finasteride (Proscar) 5 mg PO DAILY [facility] Last Admin: 08/13/17 11:23 Dose: Not Given Hydralazine HCl (Apresoline) 25 mg PO BID [facility] Last Admin: 07/29/17 17:38 Dose: Not Given Levothyroxine Sodium (Synthroid) 25 mcg PO DAILY@0630 [facility] Last Admin: 08/13/17 05:55 Dose: 25 mcg Megestrol Acetate (Megace) 400 mg PO DAILY [facility] Last Admin: 08/13/17 11:22 Dose: Not Given Metoprolol Tartrate (Lopressor) 25 mg PO BID [facility] Last Admin: 07/30/17 18:16 Dose: Not Given Midodrine (Proamatine) 5 mg PO TID [facility] Last Admin: 08/13/17 18:22 Dose: 5 mg Multivitamins (Hexavitamin) 1 tab PO DAILY [facility] Last Admin: 08/13/17 11:22 Dose: Not Given Mupirocin (Bactroban Ointment) 0 gm TOP BID [facility] Last Admin: 08/13/17 18:23 Dose: 1 applic Paricalcitol (Zemplar) 2 mcg IV TTS [facility] Last Admin: 08/13/17 11:06 Dose: 2 mcg Tamsulosin HCl (Flomax) 0.4 mg PO DAILY [facility] Last Admin: 08/13/17 11:22 Dose: Not Given - Labs Labs: 08/11/17 13:39 08/11/17 13:39 PT 17.1 SECONDS (9.7-12.2) H 08/09/17 19:57 INR 1.5 08/09/17 19:57 APTT 36 SECONDS (21-34) H 08/09/17 19:57 - Constitutional Appears: Confused - Eye Exam Eye Exam: EOMI, Normal appearance, PERRL Pupil Exam: NORMAL ACCOMODATION, PERRL - Respiratory Exam Respiratory Exam: Decreased Breath Sounds, Rales, Rhonchi - Cardiovascular Exam Cardiovascular Exam: REGULAR RHYTHM, +S1, +S2. absent: Murmur - GI/Abdominal Exam GI & Abdominal Exam: Soft, Normal Bowel Sounds. absent: Tenderness Assessment and Plan (1) Fever Status: Acute (2) Leukocytosis Status: Acute (3) UTI (urinary tract infection) Status: Acute (4) Leg ulcer Status: Acute (5) Toxic metabolic encephalopathy Status: Acute (6) Failure to thrive Assessment & Plan: for peg tube placement on saturday Status: Acute (7) Pneumonia Assessment & Plan: cefepime and vanco continues Status: Acute (8) Dyspnea Assessment & Plan: CT of angio with PE protocol has been ordered Status: Acute
--- NOTE | 2017-08-14 02:24 | PN ---
FOLLOWUP RENAL CONSULTATION LOCATION: The patient is located in room #357, bed A. REQUESTED BY: Daniel Coyle MD REASON FOR FOLLOWUP: End-stage renal disease for continuation of hemodialysis. HISTORY OF PRESENT ILLNESS: Mr. Cunningham is an 82 years old elderly male with a past medical history significant for longstanding hypertension, coronary artery disease, status post CABG, CHF, tophaceous gout and chronic kidney disease stage IV, was admitted with worsening renal function and also altered mental status and shortness of breath. The patient was found to have urosepsis. Subsequently, his hospital course complicated by worsening renal function requiring transfer to ICU on pressors and also shock livers. Subsequently, the patient was initiated on hemodialysis in ICU. The patient is being dialyzed 3 times a week Saturday, , Saturday. The patient was seen and examined during dialysis. The patient was not in acute distress, following simple commands. The patient appears slightly better today. His UF goal was about 1.3 liters initially, subsequently increased to 2 liters. PHYSICAL EXAMINATION: GENERAL: Not in distress. VITAL SIGNS: As follows; blood pressure 108/61, pulse 85, respiration 18, temperature 96, saturation 100%, height is 6 feet 3 inches and weight is 183 pounds and had UF about 2 liters. GENERAL: Mr. Cunningham is an 82 years old elderly male, moderately-built, moderately-nourished, not in distress. HEENT: Pupils normal, reactive to light and accommodation. Conjunctivae pink. Sclerae anicteric. Tongue is moist and trachea is midline. LUNGS: Symmetric on both sides. Bilateral breath sounds present. Bilateral basal crackles present. CARDIOVASCULAR SYSTEM: [place] at the fifth intercostal space and midclavicular line. S1 and S2 audible. No murmur or gallop. ABDOMEN: Normal in appearance, soft, tympanic. No guarding. No rigidity. No hepatosplenomegaly. CENTRAL NERVOUS SYSTEM: The patient is alert, awake, following simple commands, oriented x2. Sensory and motor system is grossly within normal limits. EXTREMITIES: No cyanosis, no clubbing. The patient has 2+ edema in both upper and lower extremities. CURRENT MEDICATIONS: Include as follows; hydralazine on hold, aspirin 81 mg daily, Bactroban ointment topical b.i.d., Cipro 250 mg p.o. q.12 hours, Ferrlecit 125 mg IV piggyback 3 times a week, Flomax 0.4 mg p.o. daily, multivitamin 1 tablet p.o. daily, metoprolol on hold, Megace 400 mg p.o. daily, Pepcid 20 g p.o. daily, Plavix 75 mg p.o. daily, midodrine 5 mg p.o. t.i.d., Procrit 10,000 units 3 times a week, Proscar 5 mg p.o. daily, levothyroxine 25 mcg p.o. daily, Tylenol and vitamin C 500 mg p.o. daily and Zemplar 2 mcg 3 times a week. LABORATORY DATA: Accu-Cheks 102, 124 and 85. Urine culture as of 08/08/2017, no growth. ASSESSMENT: in summary, Mr. Cunningham is an 82 years old elderly male with past medical history significant for hypertension, coronary artery disease, status post coronary artery bypass graft, gout, renal failure, anemia, status post urosepsis, code sepsis and shock liver on hemodialysis 3 times a week Saturday, , Saturday. 1. Renal failure, acute on chronic kidney disease stage IV versus progression of chronic kidney disease IV to end-stage renal disease. 2. Congestive heart failure. 3. Pneumonia. 4. Status post urinary tract infection. 5. Anemia. PLAN: Continue hemodialysis 3 times a week Saturday, , Saturday and UF as tolerated increased to 2 liters and also albumin 25% 50 mL q.1 hour x1 during dialysis p.r.n. Overall prognosis is guarded. Thank you for allowing me to participate in your patient's care. Hernan Peterson MD
[2017-08-14] MEDS: Levothyroxine 25 MCG TAB PO SCH (05:31)
[2017-08-14] MEDS: Multiple Vitamins Tab PO SCH (09:42)
[2017-08-14] MEDS: Megestrol Acetate 40 mg/ml Cup PO SCH (09:42)
[2017-08-14] MEDS ORDERED: Phytonadione 10 mg/ml Inj (Adult) SC STA (12:21)
[2017-08-14] MEDS ORDERED: Iodixanol 320 MG/ML 100 ML BOTTLE IV ONE (14:34)
--- NOTE | 2017-08-14 14:36 | PN ---
DATE: LOCATION: [facility], bed A. SUBJECTIVE: This is an 82 years old male seen and examined in rounds, without any significant clinical changes, but with poor oral intake. The issue of the PEG insertion apparently was discussed with the son by the staff in the floor and I will contact his son to arrange for a consent for potential PEG insertion upon receiving a legal consent. The entire chart is reviewed including, but not limited to the most recent lab and radiology study results, current and the previous medication list, current and the previous medical events as well as allergy to medication list. It has to be mentioned that the most recent PT and PTT were reported to be high and the patient will need subcutaneously. PHYSICAL EXAMINATION: GENERAL: An 82 years old male. VITAL SIGNS: Afebrile with pulse of 84, respiratory rate 20 to 22, blood pressure 110/66. HEENT: Show pale, dry oral mucoid membranes, nonicteric sclerae. LUNGS: Few scattered crepitation. Decreased air entry at bases. HEART: Positive S1 and S2. ABDOMEN: Soft. Bowel sounds are present. No mass or organomegaly. No rebound tenderness or guarding. EXTREMITIES: With evidence of muscle wasting syndrome with slight lower extremities edematous changes. No clubbing or cyanosis. NEUROLOGIC: No new reported neurological deficits, sensory or motor. IMPRESSION: 1. Hypoalbuminemia, malnutrition, and failure to thrive. 2. Known history of acute renal failure with dehydration, improving. 3. Peptic ulcer disease. 4. Bilateral pneumonia with pleural effusion. 5. Recurrent episodes of urinary tract infection, still on antibiotic. 6. Anemia secondary to above. 7. Patient is a candidate for percutaneous endoscopic gastrostomy insertion. SUGGESTIONS: 1. Continue current management. 2. Correct any underlying coagulopathy. 3. PEG insertion to be scheduled upon receiving a consent from the son. Katia Pardo MD
--- NOTE | 2017-08-14 14:41 | CP.PCM.PN ---
Subjective - Date & Time of Evaluation Date of Evaluation: 08/14/17 Time of Evaluation: 09:00 - Subjective Subjective: worsening infiltrates seen by pulm rx in progress on Vanco/ cefepime Objective - Vital Signs/Intake and Output Vital Signs (last 24 hours): Temp Pulse Resp BP Pulse Ox 98 F 88 20 104/63 94 L 08/14/17 08:16 08/14/17 08:16 08/14/17 08:16 08/14/17 08:16 08/14/17 08:16 Intake and Output: 08/14/17 08/14/17 06:59 18:59 Intake Total 50 180 Output Total 150 10 Balance -100 170 - Medications Medications: Current Medications Acetaminophen (Tylenol 325mg Tab) 650 mg PO Q4 PRN PRN Reason: Pain, moderate (4-7) Last Admin: 08/13/17 22:39 Dose: 650 mg Acetaminophen (Tylenol 325mg Tab) 650 mg PO Q6 PRN PRN Reason: FEVER ABOVE 101 OR [place]CIM[place]O Ascorbic Acid (Vitamin C 500 Mg Tab) 500 mg PO DAILY [facility] Last Admin: 08/14/17 09:44 Dose: 500 mg Aspirin (Aspirin Chewable) 81 mg PO DAILY [facility] Last Admin: 08/14/17 09:42 Dose: 81 mg Ciprofloxacin (Cipro) 250 mg PO Q12 [facility] Last Admin: 08/14/17 09:42 Dose: 250 mg Clopidogrel Bisulfate (Plavix) 75 mg PO DAILY [facility] Last Admin: 08/14/17 09:43 Dose: 75 mg Epoetin Jacobo (Procrit) 10,000 unit IV TTS [facility] Last Admin: 08/13/17 11:09 Dose: 10,000 unit Famotidine (Pepcid) 20 mg PO DAILY [facility] Last Admin: 08/14/17 09:43 Dose: 20 mg Finasteride (Proscar) 5 mg PO DAILY [facility] Last Admin: 08/14/17 09:43 Dose: 5 mg Hydralazine HCl (Apresoline) 25 mg PO BID [facility] Last Admin: 07/29/17 17:38 Dose: Not Given Cefepime HCl 1 gm/ Dextrose 50 mls @ 100 mls/hr IVPB Q12 [facility] Vancomycin/Sodium Chloride (Vancomycin 1 Gm/Ns 200 Ml) 1 gm in 200 mls @ 133.333 mls/hr IVPB TTS [facility] Stop: 08/20/17 10:01 Levothyroxine Sodium (Synthroid) 25 mcg PO DAILY@0630 [facility] Last Admin: 08/14/17 05:31 Dose: 25 mcg Megestrol Acetate (Megace) 400 mg PO DAILY [facility] Last Admin: 08/14/17 09:42 Dose: 400 mg Metoprolol Tartrate (Lopressor) 25 mg PO BID [facility] Last Admin: 07/30/17 18:16 Dose: Not Given Midodrine (Proamatine) 5 mg PO TID [facility] Last Admin: 08/14/17 13:57 Dose: 5 mg Multivitamins (Hexavitamin) 1 tab PO DAILY [facility] Last Admin: 08/14/17 09:42 Dose: 1 tab Mupirocin (Bactroban Ointment) 0 gm TOP BID [facility] Last Admin: 08/14/17 13:41 Dose: 1 applic Paricalcitol (Zemplar) 2 mcg IV TTS [facility] Last Admin: 08/13/17 11:06 Dose: 2 mcg Tamsulosin HCl (Flomax) 0.4 mg PO DAILY [facility] Last Admin: 08/14/17 09:42 Dose: 0.4 mg - Labs Labs: 08/11/17 13:39 08/11/17 13:39 PT 17.1 SECONDS (9.7-12.2) H 08/09/17 19:57 INR 1.5 08/09/17 19:57 APTT 36 SECONDS (21-34) H 08/09/17 19:57 - Constitutional Appears: Non-toxic, Chronically Ill - Head Exam Head Exam: NORMOCEPHALIC - Eye Exam Eye Exam: PERRL - ENT Exam ENT Exam: Mucous Membranes Dry - Neck Exam Neck Exam: absent: Lymphadenopathy - Respiratory Exam Respiratory Exam: Decreased Breath Sounds - Cardiovascular Exam Cardiovascular Exam: REGULAR RHYTHM - GI/Abdominal Exam GI & Abdominal Exam: Diminished Bowel Sounds - Rectal Exam Rectal Exam: Deferred - Exam Exam: NORMAL INSPECTION Assessment and Plan (1) Fever Status: Acute (2) Leukocytosis Status: Acute (3) UTI (urinary tract infection) Status: Acute (4) Acute renal failure Status: Acute (5) Generalized weakness Status: Acute (6) Hyperkalemia Status: Acute (7) Troponin level elevated Status: Acute (8) UTI (urinary tract infection) due to Enterococcus Status: Acute (9) UTI (urinary tract infection) due to Enterococcus Status: Acute (10) UTI due to Klebsiella species Status: Acute (11) UTI due to Klebsiella species Status: Acute
--- NOTE | 2017-08-14 15:02 | RAD ---
HISTORY: Shortness of breath COMPARISON: 08/12/2017 FINDINGS: LUNGS: Modest interval improvement in pulmonary edema. PLEURA: Stable pleural effusions bilaterally. CARDIOVASCULAR: Cardiomegaly presumed cardiogenic pulmonary edema. Venous access catheter in stable, satisfactory position. OSSEOUS STRUCTURES: No significant abnormalities. VISUALIZED UPPER ABDOMEN: Normal. OTHER FINDINGS: None. IMPRESSION: Improving pulmonary edema.
--- NOTE | 2017-08-14 15:30 | CT ---
PROCEDURE: CT Chest with contrast (Pulmonary Angiogram) HISTORY: r/o pe COMPARISON: None available. TECHNIQUE: Axial computed tomography images were obtained of the chest in the pulmonary arterial phase of enhancement. Coronal and sagittal reformatted images were created and reviewed. Intravenous contrast dose: 100 mL Visipaque 320. Radiation dose: Total exam DLP = 341.37 mGy-cm. This CT exam was performed using one or more of the following dose reduction techniques: Automated exposure control, adjustment of the mA and/or kV according to patient size, and/or use of iterative reconstruction technique. FINDINGS: PULMONARY ARTERIES: No evidence of pulmonary embolism. AORTA: Suboptimal assessment of the thoracic aorta which is not opacified with contrast. The ascending thoracic aorta is ectatic demonstrate mild aneurysmal changes measures up to 4.6 centimeter in the transverse diameter. The the aortic arch and descending thoracic aorta are slightly ectatic. LUNGS: Moderate pulmonary vascular congestion is noted. Bilateral lower lobe complete opacification/ collapse and partial collapse of the right middle lobe due to large pleural effusion is noted. Patchy ground-glass opacities seen especially at the right upper lobe may also be due to pulmonary congestion. PLEURAL SPACES: Large bilateral pleural effusions are noted. HEART: The heart is moderately to markedly enlarged. There is a reflux of the IV contrast into the IVC and hepatic veins likely due to right-sided heart failure. The patient status post median sternotomy. There is right-sided hemodialysis catheter extending from the jugular vein to the distal SVC/ SVC right atrium junction. LYMPH NODES: No lymphadenopathy. BONES, CHEST WALL: Unremarkable. No fracture or destructive lesion mild to moderate soft tissue edema. OTHER FINDINGS: Unremarkable. IMPRESSION: No evidence of pulmonary embolus. Large bilateral pleural effusions associated with bilateral complete lower lobes collapse and partial collapse of the upper and right middle lobes. Moderate to marked cardiomegaly. Mild aneurysmal changes of the ascending thoracic aorta measures up to 4.6 centimeter in transverse diameter. Skxj-ml-ycdatolf pulmonary vascular congestion and nonspecific small foci of ground-glass opacity at the upper lobes right more than left. Mohw-zp-vmztjhyx soft tissue edema.
--- NOTE | 2017-08-14 16:15 | CP.PCM.PN ---
Subjective - Date & Time of Evaluation Date of Evaluation: 08/14/17 Time of Evaluation: 11:30 - Subjective Subjective: Patient seen and examined. Dyspnea on minimal exertion and even at rest Chest x-ray consistent with bilateral effusion Status post hemodialysis Patient is awake and responsive Afebrile Objective - Vital Signs/Intake and Output Vital Signs (last 24 hours): Temp Pulse Resp BP Pulse Ox 98 F 88 20 104/63 92 L 08/14/17 08:16 08/14/17 10:30 08/14/17 08:16 08/14/17 10:30 08/14/17 10:30 Intake and Output: 08/14/17 08/14/17 06:59 18:59 Intake Total 50 180 Output Total 150 10 Balance -100 170 - Medications Medications: Current Medications Acetaminophen (Tylenol 325mg Tab) 650 mg PO Q4 PRN PRN Reason: Pain, moderate (4-7) Last Admin: 08/13/17 22:39 Dose: 650 mg Acetaminophen (Tylenol 325mg Tab) 650 mg PO Q6 PRN PRN Reason: FEVER ABOVE 101 OR [place] Ascorbic Acid (Vitamin C 500 Mg Tab) 500 mg PO DAILY [facility] Last Admin: 08/14/17 09:44 Dose: 500 mg Aspirin (Aspirin Chewable) 81 mg PO DAILY [facility] Last Admin: 08/14/17 09:42 Dose: 81 mg Clopidogrel Bisulfate (Plavix) 75 mg PO DAILY [facility] Last Admin: 08/14/17 09:43 Dose: 75 mg Epoetin Jacobo (Procrit) 10,000 unit IV TTS [facility] Last Admin: 08/13/17 11:09 Dose: 10,000 unit Famotidine (Pepcid) 20 mg PO DAILY [facility] Last Admin: 08/14/17 09:43 Dose: 20 mg Finasteride (Proscar) 5 mg PO DAILY [facility] Last Admin: 08/14/17 09:43 Dose: 5 mg Hydralazine HCl (Apresoline) 25 mg PO BID [facility] Last Admin: 07/29/17 17:38 Dose: Not Given Vancomycin/Sodium Chloride (Vancomycin 1 Gm/Ns 200 Ml) 1 gm in 200 mls @ 133.333 mls/hr IVPB TTS [facility] Stop: 08/20/17 10:01 Cefepime HCl (Maxipime Iv 1 Gm Premix) 1 gm in 50 mls @ 100 mls/hr IVPB Q12H [facility] Levothyroxine Sodium (Synthroid) 25 mcg PO DAILY@0630 [facility] Last Admin: 08/14/17 05:31 Dose: 25 mcg Megestrol Acetate (Megace) 400 mg PO DAILY [facility] Last Admin: 08/14/17 09:42 Dose: 400 mg Metoprolol Tartrate (Lopressor) 25 mg PO BID [facility] Last Admin: 07/30/17 18:16 Dose: Not Given Midodrine (Proamatine) 5 mg PO TID [facility] Last Admin: 08/14/17 13:57 Dose: 5 mg Multivitamins (Hexavitamin) 1 tab PO DAILY [facility] Last Admin: 08/14/17 09:42 Dose: 1 tab Mupirocin (Bactroban Ointment) 0 gm TOP BID [facility] Last Admin: 08/14/17 13:41 Dose: 1 applic Paricalcitol (Zemplar) 2 mcg IV TTS [facility] Last Admin: 08/13/17 11:06 Dose: 2 mcg Tamsulosin HCl (Flomax) 0.4 mg PO DAILY [facility] Last Admin: 08/14/17 09:42 Dose: 0.4 mg - Labs Labs: 08/11/17 13:39 08/11/17 13:39 PT 17.1 SECONDS (9.7-12.2) H 08/09/17 19:57 INR 1.5 08/09/17 19:57 APTT 36 SECONDS (21-34) H 08/09/17 19:57 - Head Exam Head Exam: ATRAUMATIC, NORMOCEPHALIC - ENT Exam ENT Exam: Normal Exam - Neck Exam Neck Exam: Normal Inspection - Respiratory Exam Respiratory Exam: Decreased Breath Sounds - Cardiovascular Exam Cardiovascular Exam: REGULAR RHYTHM - GI/Abdominal Exam GI & Abdominal Exam: Soft, Normal Bowel Sounds - Extremities Exam Extremities Exam: Normal Inspection - Neurological Exam Neurological Exam: Awake Assessment and Plan (1) Dyspnea Assessment & Plan: Secondary to bilateral pleural effusion Continue hemodialysis BiPAP as needed May need thoracentesis Continue antibiotics Status: Acute
[2017-08-14] MEDS: Cefepime IV 1 gm in Dextrose 1 GM/50 ML BAG IVPB SCH (17:47)
--- NOTE | 2017-08-14 18:12 | CP.PCM.PN ---
Subjective - Date & Time of Evaluation Date of Evaluation: 08/14/17 Time of Evaluation: 18:11 - Subjective Subjective: pt is seen and examined, follow up consult is dictated #[phone] Objective - Vital Signs/Intake and Output Vital Signs (last 24 hours): Temp Pulse Resp BP Pulse Ox 97.1 F L 94 H 20 108/68 94 L 08/14/17 15:00 08/14/17 15:00 08/14/17 15:00 08/14/17 15:00 08/14/17 15:00 Intake and Output: 08/14/17 08/14/17 06:59 18:59 Intake Total 50 180 Output Total 150 10 Balance -100 170 - Medications Medications: Current Medications Acetaminophen (Tylenol 325mg Tab) 650 mg PO Q4 PRN PRN Reason: Pain, moderate (4-7) Last Admin: 08/13/17 22:39 Dose: 650 mg Acetaminophen (Tylenol 325mg Tab) 650 mg PO Q6 PRN PRN Reason: FEVER ABOVE 101 OR [place] Ascorbic Acid (Vitamin C 500 Mg Tab) 500 mg PO DAILY [facility] Last Admin: 08/14/17 09:44 Dose: 500 mg Aspirin (Aspirin Chewable) 81 mg PO DAILY [facility] Last Admin: 08/14/17 09:42 Dose: 81 mg Clopidogrel Bisulfate (Plavix) 75 mg PO DAILY [facility] Last Admin: 08/14/17 09:43 Dose: 75 mg Epoetin Jacobo (Procrit) 10,000 unit IV TTS [facility] Last Admin: 08/13/17 11:09 Dose: 10,000 unit Famotidine (Pepcid) 20 mg PO DAILY [facility] Last Admin: 08/14/17 09:43 Dose: 20 mg Finasteride (Proscar) 5 mg PO DAILY [facility] Last Admin: 08/14/17 09:43 Dose: 5 mg Hydralazine HCl (Apresoline) 25 mg PO BID [facility] Last Admin: 07/29/17 17:38 Dose: Not Given Vancomycin/Sodium Chloride (Vancomycin 1 Gm/Ns 200 Ml) 1 gm in 200 mls @ 133.333 mls/hr IVPB TTS [facility] Stop: 08/20/17 10:01 Cefepime HCl (Maxipime Iv 1 Gm Premix) 1 gm in 50 mls @ 100 mls/hr IVPB Q12H [facility] Last Admin: 08/14/17 17:47 Dose: 100 mls/hr Levothyroxine Sodium (Synthroid) 25 mcg PO DAILY@0630 [facility] Last Admin: 08/14/17 05:31 Dose: 25 mcg Megestrol Acetate (Megace) 400 mg PO DAILY [facility] Last Admin: 08/14/17 09:42 Dose: 400 mg Metoprolol Tartrate (Lopressor) 25 mg PO BID [facility] Last Admin: 07/30/17 18:16 Dose: Not Given Midodrine (Proamatine) 5 mg PO TID [facility] Last Admin: 08/14/17 17:41 Dose: 5 mg Multivitamins (Hexavitamin) 1 tab PO DAILY [facility] Last Admin: 08/14/17 09:42 Dose: 1 tab Mupirocin (Bactroban Ointment) 0 gm TOP BID [facility] Last Admin: 08/14/17 17:40 Dose: 1 applic Paricalcitol (Zemplar) 2 mcg IV TTS [facility] Last Admin: 08/13/17 11:06 Dose: 2 mcg Tamsulosin HCl (Flomax) 0.4 mg PO DAILY [facility] Last Admin: 08/14/17 09:42 Dose: 0.4 mg - Labs Labs: 08/11/17 13:39 08/11/17 13:39 PT 17.1 SECONDS (9.7-12.2) H 08/09/17 19:57 INR 1.5 08/09/17 19:57 APTT 36 SECONDS (21-34) H 08/09/17 19:57
--- NOTE | 2017-08-14 22:04 | PN ---
DATE: LOCATION: The patient is located in room 357, bed A. REQUESTED BY: Daniel Coyle MD REASON FOR FOLLOWUP: End-stage renal disease for continuation of hemodialysis. SUBJECTIVE: Mr. 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 The patient was started on hemodialysis three times a week in ICU. The patient is not in acute distress, following simple commands. The patient underwent hemodialysis yesterday, had ultrafiltration about 2 liters. The patient is not in distress. No chest pain. No palpitation. PHYSICAL EXAMINATION: VITAL SIGNS: As follows, blood pressure 108/68, pulse 94, respirations 20, temperature 97.1, saturation 94%. Height 6 feet 3 inches and weight is 183 pounds. GENERAL: Mr. Cunningham is an 82-year-old elderly male, moderate-built, moderate-nourished, not in distress. HEENT: Pupils normal and reactive to light and accommodation. Conjunctivae pink. Sclerae are anicteric. Tongue is moist. NECK: Trachea is midline. LUNGS: Symmetric on both sides. Bilateral breath sounds decreased and also basilar crackles present, right more than the left. CVS: [place] at the fifth intercostal space, midclavicular area. S1, S2 audible. No murmur or gallop. The patient has a midsternal scar present from the previous CABG. ABDOMEN: Normal in appearance, soft, tympanic. No guarding. No rigidity. No hepatosplenomegaly. No abdominal bruit. [employer]ETING [employer]SULTANT: The patient is awake, following simple commands. Sensory and motor system is grossly within normal limits. EXTREMITIES: No cyanosis, no clubbing. The patient has 2+ edema in both upper and lower extremities. CURRENT MEDICATIONS: Include as follows, hydralazine on hold, metoprolol on hold, aspirin 81 mg daily, Bactroban topical b.i.d., Flomax 0.4 mg daily, multivitamin 1 tablet daily, cefepime 1 g q. 12 hours, Megace 400 mg p.o. daily, Pepcid 20 mg p.o. daily, Plavix 75 mg daily, midodrine 5 mg p.o. t.i.d., Procrit 10,000 three times a week, Proscar 5 mg p.o. daily, Synthroid 25 mcg p.o. daily, Tylenol, vancomycin 1 g three times a week, vitamin C 500 mg p.o. daily, and Zemplar 2 mcg three times a week. LABORATORY DATA: No new labs are available. His Accu-Cheks are 108, 95, 98, and 97. CT of the chest as of 08/14/2017, impression no evidence of pulmonary embolus and large bilateral pleural effusions associated with bilateral complete lower lobes collapse and partial collapse of the upper and right middle lobes, and [id number] cardiomegaly, mild aneurysmal changes of the ascending thoracic aorta, measures up to 4.6 cm in terms of diameter, oklv-gu-zfxgfaxq pulmonary vascular congestion, and nonspecific small focal ground-glass opacity in the upper lobe lobes, right more than the left, and phun-qh-tzlrqawf soft tissue edema. SUMMARY: Mr. Cunningham is an 82-year-old elderly male with hypertension, coronary artery disease status post coronary artery bypass grafting, hyperlipidemia, renal failure, status post urinary tract infection, status post code sepsis, status post shock liver with worsening renal function on hemodialysis, bilateral large pleural effusions associated with bilateral complete lower lobe collapse and partial collapse of the upper and right middle lobes and cardiomegaly. 1. Renal failure, most likely end-stage renal disease. I doubt patient will have recovery of his renal function at this time. Continue hemodialysis three times a week. 2. Fluid overload. 3. Hypertension. Blood pressure is borderline. Continue to hold hydralazine and metoprolol. Continue midodrine, and we will try to ultrafiltrate as much as the patient can tolerate tomorrow, and continue IV antibiotics as per ID recommendations. The patient is off Cipro. We will follow with you. I discussed the case with Dr. Leonidas White in rounds. Thank you for allowing me to participate in your patient's care. Overall prognosis is guarded. Hernan Peterson MD
--- NOTE | 2017-08-14 23:22 | CP.PCM.PN ---
Subjective - Date & Time of Evaluation Date of Evaluation: 08/14/17 Time of Evaluation: 15:40 - Subjective Subjective: Patient seen and examined. Dyspnea on minimal exertion and even at rest Chest x-ray consistent with bilateral effusion Status post hemodialysis Patient is awake and responsive Afebrile Objective - Vital Signs/Intake and Output Vital Signs (last 24 hours): Temp Pulse Resp BP Pulse Ox 97.1 F L 94 H 20 108/68 94 L 08/14/17 15:00 08/14/17 15:00 08/14/17 15:00 08/14/17 15:00 08/14/17 15:00 Intake and Output: 08/14/17 08/15/17 18:59 06:59 Intake Total 180 170 Output Total 10 60 Balance 170 110 - Medications Medications: Current Medications Acetaminophen (Tylenol 325mg Tab) 650 mg PO Q4 PRN PRN Reason: Pain, moderate (4-7) Last Admin: 08/14/17 23:02 Dose: 650 mg Acetaminophen (Tylenol 325mg Tab) 650 mg PO Q6 PRN PRN Reason: FEVER ABOVE 101 OR [place] Ascorbic Acid (Vitamin C 500 Mg Tab) 500 mg PO DAILY [facility] Last Admin: 08/14/17 09:44 Dose: 500 mg Aspirin (Aspirin Chewable) 81 mg PO DAILY [facility] Last Admin: 08/14/17 09:42 Dose: 81 mg Clopidogrel Bisulfate (Plavix) 75 mg PO DAILY [facility] Last Admin: 08/14/17 09:43 Dose: 75 mg Epoetin Jacobo (Procrit) 10,000 unit IV TTS [facility] Last Admin: 08/13/17 11:09 Dose: 10,000 unit Famotidine (Pepcid) 20 mg PO DAILY [facility] Last Admin: 08/14/17 09:43 Dose: 20 mg Finasteride (Proscar) 5 mg PO DAILY [facility] Last Admin: 08/14/17 09:43 Dose: 5 mg Hydralazine HCl (Apresoline) 25 mg PO BID [facility] Last Admin: 07/29/17 17:38 Dose: Not Given Vancomycin/Sodium Chloride (Vancomycin 1 Gm/Ns 200 Ml) 1 gm in 200 mls @ 133.333 mls/hr IVPB TTS [facility] Stop: 08/20/17 10:01 Cefepime HCl (Maxipime Iv 1 Gm Premix) 1 gm in 50 mls @ 100 mls/hr IVPB Q12H [facility] Last Admin: 08/14/17 17:47 Dose: 100 mls/hr Levothyroxine Sodium (Synthroid) 25 mcg PO DAILY@0630 [facility] Last Admin: 08/14/17 05:31 Dose: 25 mcg Megestrol Acetate (Megace) 400 mg PO DAILY [facility] Last Admin: 08/14/17 09:42 Dose: 400 mg Metoprolol Tartrate (Lopressor) 25 mg PO BID [facility] Last Admin: 07/30/17 18:16 Dose: Not Given Midodrine (Proamatine) 5 mg PO TID [facility] Last Admin: 08/14/17 17:41 Dose: 5 mg Multivitamins (Hexavitamin) 1 tab PO DAILY [facility] Last Admin: 08/14/17 09:42 Dose: 1 tab Mupirocin (Bactroban Ointment) 0 gm TOP BID [facility] Last Admin: 08/14/17 17:40 Dose: 1 applic Paricalcitol (Zemplar) 2 mcg IV TTS [facility] Last Admin: 08/13/17 11:06 Dose: 2 mcg Tamsulosin HCl (Flomax) 0.4 mg PO DAILY [facility] Last Admin: 08/14/17 09:42 Dose: 0.4 mg - Labs Labs: 08/11/17 13:39 08/11/17 13:39 PT 17.1 SECONDS (9.7-12.2) H 08/09/17 19:57 INR 1.5 08/09/17 19:57 APTT 36 SECONDS (21-34) H 08/09/17 19:57 - Constitutional Appears: No Acute Distress - Head Exam Head Exam: ATRAUMATIC, NORMAL INSPECTION, NORMOCEPHALIC - Eye Exam Eye Exam: EOMI, Normal appearance, PERRL Pupil Exam: NORMAL ACCOMODATION, PERRL - Respiratory Exam Respiratory Exam: Decreased Breath Sounds, Rales, Rhonchi - Cardiovascular Exam Cardiovascular Exam: REGULAR RHYTHM, +S1, +S2. absent: Murmur - GI/Abdominal Exam GI & Abdominal Exam: Soft, Normal Bowel Sounds. absent: Tenderness Assessment and Plan (1) Fever Status: Acute (2) Leukocytosis Status: Acute (3) UTI (urinary tract infection) Status: Acute (4) Leg ulcer Status: Acute (5) Toxic metabolic encephalopathy Status: Acute (6) Failure to thrive Assessment & Plan: pt is already on magase will be put peg tube Status: Acute (7) Pneumonia Assessment & Plan: on antibiotics Status: Acute
[2017-08-15] MEDS: Levothyroxine 25 MCG TAB PO SCH (05:43)
[2017-08-15] MEDS: Cefepime IV 1 gm in Dextrose 1 GM/50 ML BAG IVPB SCH ×2 (05:43→18:28)
[2017-08-15] MEDS ORDERED: Phytonadione 10 mg/ml Inj (Adult) SC STA (06:38)
[2017-08-15] MEDS ORDERED: Phytonadione 10 mg/ml Inj (Adult) SC ONE (09:45)
[2017-08-15] MEDS: Multiple Vitamins Tab PO SCH (10:05)
[2017-08-15] MEDS: Megestrol Acetate 40 mg/ml Cup PO SCH (10:06)
[2017-08-15] MEDS: Epoetin Alfa 10,000 unit/ml Dialysis IV SCH (11:13)
[2017-08-15] MEDS: Paricalcitol 2 mcg/ml Inj IV SCH (11:14)
--- NOTE | 2017-08-15 11:18 | PN ---
DATE: LOCATION: 357. SUBJECTIVE: This is an 82-year-old male seen and examined in rounds without significant clinical changes or reported active bleeding. Seen in rounds with poor oral intake. The entire chart is reviewed including, but not limited to the most recent lab and radiology study results, current and the previous medication list, and current and the previous medical events. Case discussed at length with the staff in the floor, awaiting official signed consent from the family for PEG insertion, son and agreed by telephone call. The patient had a CAT scan of the chest, results are seen. Most recent lab result showed blood glucose level of 91 and patient had elevated PT and PTT recently, for which vitamin K was given. It has to be mentioned that repeat CBC and SMA-18 not available today and to be done prior to the patient's PEG insertion today. PHYSICAL EXAMINATION: GENERAL: An 82-year-old male. VITAL SIGNS: Afebrile with pulse of 92, respiratory 20 to 22 with blood pressure of 116/72. HEENT: Showed mildly pale, dry oral mucoid membranes, nonicteric sclerae. LUNGS: Few scattered crepitation. Decreased air entry at bases. HEART: Positive S1 and S2. ABDOMEN: Soft. Bowel sounds are present. There was mild distention. No mass or organomegaly. No rebound tenderness or guarding. EXTREMITIES: With mild lower extremities edematous changes. No clubbing or cyanosis. NEUROLOGIC: No new reported neurological deficits, sensory or motor. IMPRESSION: 1. Abnormal chest CAT scan. 2. Poor oral intake, malnutrition with hypoalbuminemia. 3. Failure to thrive. 4. Acute renal failure. 5. Peptic ulcer disease. 6. Bilateral pleural effusion with pneumonia and respiratory insufficiency. 7. Anemia secondary to above. 8. Patient is a candidate for percutaneous endoscopic gastrostomy insertion. SUGGESTION: 1. Continue current management. 2. Vitamin K to correct any underlying coagulopathy. 3. Keep n.p.o. for PEG insertion at , awaiting family official legal consent signature. Katia Pardo MD
[2017-08-15] MEDS: Vancomycin 1 gm/NS 200 ml 1 GM/200 ML BAG IVPB SCH (12:07)
--- NOTE | 2017-08-15 16:27 | CP.PCM.PN ---
Subjective - Date & Time of Evaluation Date of Evaluation: 08/15/17 Time of Evaluation: 16:26 - Subjective Subjective: pt is seen and examined, follow up consult is dictated #[id number] s/p hd , had auf about 2 lit stable tx Objective - Vital Signs/Intake and Output Vital Signs (last 24 hours): Temp Pulse Resp BP Pulse Ox 97.5 F L 91 H 22 110/63 93 L 08/15/17 08:50 08/15/17 08:50 08/15/17 08:50 08/15/17 11:50 08/15/17 08:50 Intake and Output: 08/15/17 08/15/17 06:59 18:59 Intake Total 170 300 Output Total 60 10 Balance 110 290 - Medications Medications: Current Medications Acetaminophen (Tylenol 325mg Tab) 650 mg PO Q4 PRN PRN Reason: Pain, moderate (4-7) Last Admin: 08/15/17 05:44 Dose: 650 mg Acetaminophen (Tylenol 325mg Tab) 650 mg PO Q6 PRN PRN Reason: FEVER ABOVE 101 OR NASCIMENTO Ascorbic Acid (Vitamin C 500 Mg Tab) 500 mg PO DAILY [facility] Last Admin: 08/15/17 10:06 Dose: Not Given Aspirin (Aspirin Chewable) 81 mg PO DAILY [facility] Last Admin: 08/15/17 10:05 Dose: Not Given Clopidogrel Bisulfate (Plavix) 75 mg PO DAILY [facility] Last Admin: 08/15/17 10:06 Dose: Not Given Epoetin Jacobo (Procrit) 10,000 unit IV TTS [facility] Last Admin: 08/15/17 11:13 Dose: 10,000 unit Famotidine (Pepcid) 20 mg PO DAILY [facility] Last Admin: 08/15/17 10:06 Dose: Not Given Finasteride (Proscar) 5 mg PO DAILY [facility] Last Admin: 08/15/17 10:06 Dose: Not Given Hydralazine HCl (Apresoline) 25 mg PO BID [facility] Last Admin: 07/29/17 17:38 Dose: Not Given Vancomycin/Sodium Chloride (Vancomycin 1 Gm/Ns 200 Ml) 1 gm in 200 mls @ 133.333 mls/hr IVPB TTS [facility] Stop: 08/20/17 10:01 Last Admin: 08/15/17 12:07 Dose: 133.333 mls/hr Cefepime HCl (Maxipime Iv 1 Gm Premix) 1 gm in 50 mls @ 100 mls/hr IVPB Q12H [facility] Last Admin: 08/15/17 05:43 Dose: 100 mls/hr Levothyroxine Sodium (Synthroid) 25 mcg PO DAILY@0630 [facility] Last Admin: 08/15/17 05:43 Dose: 25 mcg Megestrol Acetate (Megace) 400 mg PO DAILY [facility] Last Admin: 08/15/17 10:06 Dose: Not Given Metoprolol Tartrate (Lopressor) 25 mg PO BID [facility] Last Admin: 07/30/17 18:16 Dose: Not Given Midodrine (Proamatine) 5 mg PO TID [facility] Last Admin: 08/15/17 14:10 Dose: 5 mg Multivitamins (Hexavitamin) 1 tab PO DAILY [facility] Last Admin: 08/15/17 10:05 Dose: Not Given Mupirocin (Bactroban Ointment) 0 gm TOP BID [facility] Last Admin: 08/15/17 10:05 Dose: Not Given Paricalcitol (Zemplar) 2 mcg IV TTS [facility] Last Admin: 08/15/17 11:14 Dose: 2 mcg Tamsulosin HCl (Flomax) 0.4 mg PO DAILY [facility] Last Admin: 08/15/17 10:05 Dose: Not Given - Labs Labs: 08/11/17 13:39 08/11/17 13:39 PT 17.1 SECONDS (9.7-12.2) H 08/09/17 19:57 INR 1.5 08/09/17 19:57 APTT 36 SECONDS (21-34) H 08/09/17 19:57
--- NOTE | 2017-08-15 22:23 | PN ---
DATE: FOLLOWUP RENAL CONSULTATION LOCATION: Patient is located in room 357, bed A. REQUESTED BY: Daniel Coyle MD. REASON FOR CONSULTATION: End-stage renal disease, continuation of hemodialysis. HISTORY OF PRESENT ILLNESS: Mr. Cunningham is an 82 years elderly male with a past medical history significant for longstanding hypertension, coronary artery disease status post CABG, tophaceous gout, CHF, renal failure, was admitted with altered mental status, low-grade fever, shortness of breath, and patient was found to have urosepsis status post code sepsis and transferred to ICU with worsening renal function, anemia, and shock liver. Subsequently, patient was initiated on hemodialysis. Patient is being dialyzed three times a week. The patient is not in acute distress. Denies any chest pain or palpitation. Denies any shortness of breath, status post hemodialysis this morning, had ultrafiltration about 2 liters, tolerated very well, not in distress. PHYSICAL EXAMINATION: VITAL SIGNS: As follows: Blood pressure 113/61, pulse 93, respirations 20, temperature 97, saturation 94%. Height 6 feet 3 inches and weight is 183 pounds. GENERAL: Mr. Cunningham is an 82 years elderly male, moderately built, moderate nourished, not in distress. HEENT: Pupils normal, reactive to light and accommodation. Conjunctivae pink. Sclerae anicteric. Tongue is moist. Trachea is midline. LUNGS: Symmetric on both sides. Bilateral breath sounds present. Clear on auscultation in the upper lungs and basal crackles present in both sides. CARDIOVASCULAR SYSTEM: [place] at the fifth intercostal space, midclavicular line. S1, S2 audible. No murmur, no gallop. ABDOMEN: Normal in appearance. Soft, tympanic. No guarding. No rigidity. No hepatosplenomegaly. CENTRAL NERVOUS SYSTEM: The patient is alert, awake, oriented x1 to 2. Sensory system is grossly within normal limits. Motor system, moving all extremities. EXTREMITIES: No cyanosis. No clubbing. The patient has one to two plus edema in both upper and lower extremities. CURRENT MEDICATIONS: Include as follows: Aspirin 81 mg daily, Bactroban ointment topical, also Flomax 0.4 mg daily, multivitamin one tablet daily, cefepime 1 g q. 12 hours, Megace 400 mg p.o. daily, Pepcid 20 mg p.o. daily, Plavix 75 mg daily, midodrine 5 mg p.o. t.i.d., Procrit 10,000 units three times a week, Proscar 5 mg p.o. daily, Synthroid 25 mcg p.o. daily, Tylenol, vancomycin 1 g three times a week, vitamin C 500 mg p.o. daily, and Zemplar 2 mcg three times a week. LABORATORY DATA: No new labs are available. As of 08/11, hemoglobin 9.3, hematocrit is 28.8, platelets 187. Sodium 136, potassium 4.2, chloride 99, CO of 27, BUN 47, creatinine 2.7, glucose 112, calcium 7.7. Accu-Chek as of today, glucose 87, 91, 93, and 88. ASSESSMENT: In summary, Mr. Cunningham is an 82 years elderly male with long-standing hypertension, hyperlipidemia, coronary artery disease status post coronary artery bypass graft, gout, renal failure, and congestive heart failure, was admitted with worsening renal function, altered mental status, shortness of breath and fever, being treated for urinary tract infection and status post code sepsis, status post shock liver. 1. Renal failure, end-stage renal disease, continue hemodialysis three times a week, Saturday, , Saturday. 2. Anemia secondary to renal failure and cannot rule out secondary to sepsis. 3. Congestive heart failure with fluid overload. 4. Pneumonia. PLAN: Continue IV antibiotics as per ID recommendation, cefepime, and continue Epogen during hemodialysis. Continue vitamins. Repeat CBC, CMP, and phosphorus level in a.m. We will follow with you. Continue bedside physical therapy as tolerated. Stable hemodialysis, had ultrafiltration about 2 liters. Thank you for allowing me to participate in your patient's care. Hernan Peterson MD
--- NOTE | 2017-08-15 23:38 | CP.PCM.PN ---
Subjective - Date & Time of Evaluation Date of Evaluation: 08/15/17 Time of Evaluation: 19:00 - Subjective Subjective: Pt seen and examined, feels weak, on peg feed. pt is confused, pt is placed on BIPAP, PCO2 level is normal. Objective - Vital Signs/Intake and Output Vital Signs (last 24 hours): Temp Pulse Resp BP Pulse Ox 97.0 F L 93 H 20 113/61 94 L 08/15/17 15:00 08/15/17 15:00 08/15/17 15:00 08/15/17 15:00 08/15/17 15:00 Intake and Output: 08/15/17 08/16/17 18:59 06:59 Intake Total 300 100 Output Total 10 250 Balance 290 -150 - Medications Medications: Current Medications Acetaminophen (Tylenol 325mg Tab) 650 mg PO Q4 PRN PRN Reason: Pain, moderate (4-7) Last Admin: 08/15/17 05:44 Dose: 650 mg Acetaminophen (Tylenol 325mg Tab) 650 mg PO Q6 PRN PRN Reason: FEVER ABOVE 101 OR [place] Ascorbic Acid (Vitamin C 500 Mg Tab) 500 mg PO DAILY [facility] Last Admin: 08/15/17 10:06 Dose: Not Given Aspirin (Aspirin Chewable) 81 mg PO DAILY [facility] Last Admin: 08/15/17 10:05 Dose: Not Given Clopidogrel Bisulfate (Plavix) 75 mg PO DAILY [facility] Last Admin: 08/15/17 10:06 Dose: Not Given Epoetin Jacobo (Procrit) 10,000 unit IV TTS [facility] Last Admin: 08/15/17 11:13 Dose: 10,000 unit Famotidine (Pepcid) 20 mg PO DAILY [facility] Last Admin: 08/15/17 10:06 Dose: Not Given Finasteride (Proscar) 5 mg PO DAILY [facility] Last Admin: 08/15/17 10:06 Dose: Not Given Hydralazine HCl (Apresoline) 25 mg PO BID [facility] Last Admin: 07/29/17 17:38 Dose: Not Given Vancomycin/Sodium Chloride (Vancomycin 1 Gm/Ns 200 Ml) 1 gm in 200 mls @ 133.333 mls/hr IVPB TTS [facility] Stop: 08/20/17 10:01 Last Admin: 08/15/17 12:07 Dose: 133.333 mls/hr Cefepime HCl (Maxipime Iv 1 Gm Premix) 1 gm in 50 mls @ 100 mls/hr IVPB Q12H [facility] Last Admin: 08/15/17 18:28 Dose: 100 mls/hr Levothyroxine Sodium (Synthroid) 25 mcg PO DAILY@0630 [facility] Last Admin: 08/15/17 05:43 Dose: 25 mcg Megestrol Acetate (Megace) 400 mg PO DAILY [facility] Last Admin: 08/15/17 10:06 Dose: Not Given Metoprolol Tartrate (Lopressor) 25 mg PO BID [facility] Last Admin: 07/30/17 18:16 Dose: Not Given Midodrine (Proamatine) 5 mg PO TID [facility] Last Admin: 08/15/17 18:28 Dose: 5 mg Multivitamins (Hexavitamin) 1 tab PO DAILY [facility] Last Admin: 08/15/17 10:05 Dose: Not Given Mupirocin (Bactroban Ointment) 0 gm TOP BID [facility] Last Admin: 08/15/17 18:27 Dose: 1 applic Paricalcitol (Zemplar) 2 mcg IV TTS [facility] Last Admin: 08/15/17 11:14 Dose: 2 mcg Tamsulosin HCl (Flomax) 0.4 mg PO DAILY [facility] Last Admin: 08/15/17 10:05 Dose: Not Given - Labs Labs: 08/11/17 13:39 08/11/17 13:39 PT 17.1 SECONDS (9.7-12.2) H 08/09/17 19:57 INR 1.5 08/09/17 19:57 APTT 36 SECONDS (21-34) H 08/09/17 19:57 - Constitutional Appears: No Acute Distress, Chronically Ill - Head Exam Head Exam: ATRAUMATIC, NORMAL INSPECTION, NORMOCEPHALIC - Eye Exam Eye Exam: EOMI, Normal appearance, PERRL Pupil Exam: NORMAL ACCOMODATION, PERRL - Respiratory Exam Respiratory Exam: Decreased Breath Sounds, Rales - Cardiovascular Exam Cardiovascular Exam: REGULAR RHYTHM, +S1, +S2. absent: Murmur - GI/Abdominal Exam GI & Abdominal Exam: Soft, Normal Bowel Sounds. absent: Tenderness Assessment and Plan (1) Fever Status: Acute (2) Leukocytosis Status: Acute (3) UTI (urinary tract infection) Status: Acute (4) Leg ulcer Status: Acute (5) Toxic metabolic encephalopathy Status: Acute
[2017-08-16] MEDS: Cefepime IV 1 gm in Dextrose 1 GM/50 ML BAG IVPB SCH ×2 (05:21→17:51)
[2017-08-16] MEDS: Levothyroxine 25 MCG TAB PO SCH (05:30)
[2017-08-16 08:19] LABS: BASO # 0.1 K/uL (0.0-0.2); BASO % 0.9 % (0.0-2.0); EOS % 0.6 % (0.0-4.0); HEMATOCRIT 31.2 % (35.0-51.0); LYMPH # 1.2 K/uL (1.0-4.3); LYMPH % 15.7 % (20.0-40.0); MEAN CELL VOLUME 91.2 fL (80.0-94.0); MEAN CORPUSCULAR HEMOGLOBIN 28.8 pg (27.0-31.0); MEAN CORPUSCULAR HGB CONC 31.6 g/dL (33.0-37.0); MEAN PLATELET VOLUME 8.6 fL (7.2-11.7); MONO # 0.5 K/uL (0.0-0.8); MONO % 6.7 % (0.0-10.0); NRBC % 0.1 % (0.0-2.0); RED CELL DISTRIBUTION WIDTH 20.9 % (11.5-14.5); WHITE BLOOD COUNT 7.4 K/uL (4.8-10.8)
[2017-08-16 08:54] LABS: ALB/GLOB RATIO 0.9 (1.0-2.1); BILIRUBIN,TOTAL 1.3 mg/dL (0.2-1.3); CALCIUM 7.8 mg/dl (8.6-10.4); TOTAL PROTEIN 5.9 g/dL (6.3-8.3)
[2017-08-16] MEDS ORDERED: Sodium Chloride 0.9% 1,000 ML IV ONE ×2 (09:09)
[2017-08-16] MEDS ORDERED: Midazolam 2 MG/2 ML VIAL ONE (09:14)
[2017-08-16] MEDS ORDERED: Etomidate 20 mg/10ml Inj IV ONE (09:17)
[2017-08-16] MEDS ORDERED: Propofol 10 mg/ml Inj (20 ML) ONE (09:18)
--- NOTE | 2017-08-16 09:30 | CP.PCM.PN ---
Subjective - Date & Time of Evaluation Date of Evaluation: 08/16/17 Time of Evaluation: 09:30 - Subjective Subjective: pt is seen and examined, follow up consult is dictated #[id number] s/p peg and thoracentesisi hd in am Objective - Vital Signs/Intake and Output Vital Signs (last 24 hours): Temp Pulse Resp BP Pulse Ox 97.4 F L 100 H 20 103/63 98 08/16/17 08:32 08/16/17 09:12 08/16/17 09:12 08/16/17 09:12 08/16/17 09:12 Intake and Output: 08/16/17 08/16/17 06:59 18:59 Intake Total 100 Output Total 250 Balance -150 - Medications Medications: Current Medications Acetaminophen (Tylenol 325mg Tab) 650 mg PO Q4 PRN PRN Reason: Pain, moderate (4-7) Last Admin: 08/15/17 05:44 Dose: 650 mg Acetaminophen (Tylenol 325mg Tab) 650 mg PO Q6 PRN PRN Reason: FEVER ABOVE 101 OR [place]CIM[place]O Ascorbic Acid (Vitamin C 500 Mg Tab) 500 mg PO DAILY [facility] Last Admin: 08/15/17 10:06 Dose: Not Given Aspirin (Aspirin Chewable) 81 mg PO DAILY [facility] Last Admin: 08/15/17 10:05 Dose: Not Given Clopidogrel Bisulfate (Plavix) 75 mg PO DAILY [facility] Last Admin: 08/15/17 10:06 Dose: Not Given Epoetin Jacobo (Procrit) 10,000 unit IV TTS [facility] Last Admin: 08/15/17 11:13 Dose: 10,000 unit Famotidine (Pepcid) 20 mg PO DAILY [facility] Last Admin: 08/15/17 10:06 Dose: Not Given Finasteride (Proscar) 5 mg PO DAILY [facility] Last Admin: 08/15/17 10:06 Dose: Not Given Hydralazine HCl (Apresoline) 25 mg PO BID [facility] Last Admin: 07/29/17 17:38 Dose: Not Given Vancomycin/Sodium Chloride (Vancomycin 1 Gm/Ns 200 Ml) 1 gm in 200 mls @ 133.333 mls/hr IVPB TTS [facility] Stop: 08/20/17 10:01 Last Admin: 08/15/17 12:07 Dose: 133.333 mls/hr Cefepime HCl (Maxipime Iv 1 Gm Premix) 1 gm in 50 mls @ 100 mls/hr IVPB Q12H [facility] Last Admin: 08/16/17 05:21 Dose: 100 mls/hr Levothyroxine Sodium (Synthroid) 25 mcg PO DAILY@0630 [facility] Last Admin: 08/16/17 05:30 Dose: 25 mcg Megestrol Acetate (Megace) 400 mg PO DAILY [facility] Last Admin: 08/15/17 10:06 Dose: Not Given Metoprolol Tartrate (Lopressor) 25 mg PO BID [facility] Last Admin: 07/30/17 18:16 Dose: Not Given Midodrine (Proamatine) 5 mg PO TID [facility] Last Admin: 08/15/17 18:28 Dose: 5 mg Multivitamins (Hexavitamin) 1 tab PO DAILY [facility] Last Admin: 08/15/17 10:05 Dose: Not Given Mupirocin (Bactroban Ointment) 0 gm TOP BID [facility] Last Admin: 08/15/17 18:27 Dose: 1 applic Paricalcitol (Zemplar) 2 mcg IV TTS [facility] Last Admin: 08/15/17 11:14 Dose: 2 mcg Tamsulosin HCl (Flomax) 0.4 mg PO DAILY [facility] Last Admin: 08/15/17 10:05 Dose: Not Given - Labs Labs: 08/16/17 08:01 08/16/17 08:01 PT 17.1 SECONDS (9.7-12.2) H 08/09/17 19:57 INR 1.5 08/09/17 19:57 APTT 36 SECONDS (21-34) H 08/09/17 19:57
[2017-08-16] MEDS: metroNIDAZOLE IV 500 mg/100 ml 500 MG/100 ML BAG IVPB SCH ×3 (09:45→21:48)
[2017-08-16] MEDS ORDERED: Phytonadione 10 mg/ml Inj (Adult) SC ONE ×2 (09:45→13:30)
[2017-08-16] MEDS: Multiple Vitamins Tab PO SCH (10:14)
[2017-08-16] MEDS: Megestrol Acetate 40 mg/ml Cup PO SCH (10:14)
[2017-08-16 11:52] LABS: ABG ALLEN TEST P; ARTERIAL BLOOD HGB O2 SAT 87.3 % (95.0-98.0); CARBOXYHEMOGLOBIN 2.6 % (0.5-1.5); DRAW SITE LB; HHB 9.1 % (0.0-5.0)
[2017-08-16] MEDS ORDERED: Lidocaine 2% Inj (20ml) ONE (12:46)
--- NOTE | 2017-08-16 13:22 | CP.PCM.PN ---
Subjective - Date & Time of Evaluation Date of Evaluation: 08/16/17 Time of Evaluation: 09:00 - Subjective Subjective: for thoracentesis today Large pleural effusion on CAT scan Shortness of breath On hemodialysis Objective - Vital Signs/Intake and Output Vital Signs (last 24 hours): Temp Pulse Resp BP Pulse Ox 97.8 F 94 H 16 132/68 100 08/16/17 09:35 08/16/17 10:20 08/16/17 10:20 08/16/17 10:20 08/16/17 10:20 Intake and Output: 08/16/17 08/16/17 06:59 18:59 Intake Total 100 Output Total 250 Balance -150 - Medications Medications: Current Medications Acetaminophen (Tylenol 325mg Tab) 650 mg PO Q4 PRN PRN Reason: Pain, moderate (4-7) Last Admin: 08/15/17 05:44 Dose: 650 mg Acetaminophen (Tylenol 325mg Tab) 650 mg PO Q6 PRN PRN Reason: FEVER ABOVE 101 OR [place]CIM[place] Ascorbic Acid (Vitamin C 500 Mg Tab) 500 mg PO DAILY [facility] Last Admin: 08/16/17 10:00 Dose: Not Given Aspirin (Aspirin Chewable) 81 mg PO DAILY [facility] Last Admin: 08/16/17 10:14 Dose: Not Given Clopidogrel Bisulfate (Plavix) 75 mg PO DAILY [facility] Last Admin: 08/16/17 10:14 Dose: Not Given Epoetin Jacobo (Procrit) 10,000 unit IV TTS [facility] Last Admin: 08/15/17 11:13 Dose: 10,000 unit Famotidine (Pepcid) 20 mg PO DAILY [facility] Last Admin: 08/16/17 10:14 Dose: Not Given Finasteride (Proscar) 5 mg PO DAILY [facility] Last Admin: 08/16/17 10:15 Dose: Not Given Hydralazine HCl (Apresoline) 25 mg PO BID [facility] Last Admin: 07/29/17 17:38 Dose: Not Given Vancomycin/Sodium Chloride (Vancomycin 1 Gm/Ns 200 Ml) 1 gm in 200 mls @ 133.333 mls/hr IVPB TTS [facility] Stop: 08/20/17 10:01 Last Admin: 08/15/17 12:07 Dose: 133.333 mls/hr Cefepime HCl (Maxipime Iv 1 Gm Premix) 1 gm in 50 mls @ 100 mls/hr IVPB Q12H [facility] Last Admin: 08/16/17 05:21 Dose: 100 mls/hr Metronidazole (Flagyl) 500 mg in 100 mls @ 100 mls/hr IVPB Q8 [facility] Last Admin: 08/16/17 09:45 Dose: Not Given Levothyroxine Sodium (Synthroid) 25 mcg PO DAILY@0630 [facility] Last Admin: 08/16/17 05:30 Dose: 25 mcg Megestrol Acetate (Megace) 400 mg PO DAILY [facility] Last Admin: 08/16/17 10:14 Dose: Not Given Metoprolol Tartrate (Lopressor) 25 mg PO BID [facility] Last Admin: 07/30/17 18:16 Dose: Not Given Midodrine (Proamatine) 5 mg PO TID [facility] Last Admin: 08/16/17 10:15 Dose: Not Given Multivitamins (Hexavitamin) 1 tab PO DAILY [facility] Last Admin: 08/16/17 10:14 Dose: Not Given Mupirocin (Bactroban Ointment) 0 gm TOP BID [facility] Last Admin: 08/16/17 10:14 Dose: Not Given Paricalcitol (Zemplar) 2 mcg IV TTS [facility] Last Admin: 08/15/17 11:14 Dose: 2 mcg Tamsulosin HCl (Flomax) 0.4 mg PO DAILY [facility] Last Admin: 08/16/17 10:14 Dose: Not Given - Labs Labs: 08/16/17 08:01 08/16/17 08:01 PT 17.1 SECONDS (9.7-12.2) H 08/09/17 19:57 INR 1.5 08/09/17 19:57 APTT 36 SECONDS (21-34) H 08/09/17 19:57 Assessment and Plan (1) Dyspnea Status: Acute
--- NOTE | 2017-08-16 14:21 | PCM.SURG1 ---
Surgeon's Initial Post Op Note - Surgeon's Notes Surgeon: Romero Shelton MD News Analyst: NONE Type of Anesthesia: Local Pre-Operative Diagnosis: Pleural effusion Operative Findings: US showed right pleural effusion Post-Operative Diagnosis: Pleural effusion Operation Performed: Right thoracentesis. Specimen/Specimens Removed: 1100 cc Estimated Blood Loss: EBL {In ML}: 0 Blood Products Given: N/A Drains Used: No Drains Post-Op Condition: Good Date of Surgery/Procedure: 08/16/17 Time of Surgery/Procedure: 14:00
--- NOTE | 2017-08-16 14:33 | US ---
PROCEDURE: Date of procedure: 08/16/2017 Procedure: 1. Ultrasound-guided Right thoracentesis, CPT 96850 Medications: 6CC 1% Lidocaine HISTORY: Right pleural effusion, shortness of breath TECHNIQUE: Following informed consent ,the Patients' right chest was marked. Procedure time-out was called, and the patient was placed in the sitting position and limited ultrasound showed a large right effusion. The patient's right back was prepped and draped in the usual sterile fashion. After the skin was anesthetized with lidocaine, a drainage catheter was advanced under ultrasound guidance into the pleural space. Ultrasound-guided thoracentesis was performed. A total of 1100 cubic centimeters of straw-colored fluid removed without complication. A Xeroform dressing was applied. IMPRESSION: Ultrasound guided Right thoracentesis. There were no immediate complications.
[2017-08-16 15:08] LABS: BODY FLUID TYPE PLEURAL
[2017-08-16 15:47] LABS: BF GROSS APPEARANCE CLEAR (CLEAR); BODY FLUID TOTAL COUNT 100 (0-0)
--- NOTE | 2017-08-16 18:24 | CP.PCM.PN ---
Subjective - Date & Time of Evaluation Date of Evaluation: 08/16/17 Time of Evaluation: 08:00 - Subjective Subjective: comfortable on BiPaP s/p thoracentesis no fever Objective - Vital Signs/Intake and Output Vital Signs (last 24 hours): Temp Pulse Resp BP Pulse Ox 97.2 F L 92 H 20 102/63 93 L 08/16/17 15:00 08/16/17 15:00 08/16/17 15:00 08/16/17 15:00 08/16/17 15:00 Intake and Output: 08/16/17 08/16/17 06:59 18:59 Intake Total 100 100 Output Total 250 300 Balance -150 -200 - Medications Medications: Current Medications Acetaminophen (Tylenol 325mg Tab) 650 mg PO Q4 PRN PRN Reason: Pain, moderate (4-7) Last Admin: 08/15/17 05:44 Dose: 650 mg Acetaminophen (Tylenol 325mg Tab) 650 mg PO Q6 PRN PRN Reason: FEVER ABOVE 101 OR [place]O Ascorbic Acid (Vitamin C 500 Mg Tab) 500 mg PO DAILY [facility] Last Admin: 08/16/17 10:00 Dose: Not Given Aspirin (Aspirin Chewable) 81 mg PO DAILY [facility] Last Admin: 08/16/17 10:14 Dose: Not Given Clopidogrel Bisulfate (Plavix) 75 mg PO DAILY [facility] Last Admin: 08/16/17 10:14 Dose: Not Given Epoetin Jacobo (Procrit) 10,000 unit IV TTS [facility] Last Admin: 08/15/17 11:13 Dose: 10,000 unit Famotidine (Pepcid) 20 mg PO DAILY [facility] Last Admin: 08/16/17 10:14 Dose: Not Given Finasteride (Proscar) 5 mg PO DAILY [facility] Last Admin: 08/16/17 10:15 Dose: Not Given Hydralazine HCl (Apresoline) 25 mg PO BID [facility] Last Admin: 07/29/17 17:38 Dose: Not Given Vancomycin/Sodium Chloride (Vancomycin 1 Gm/Ns 200 Ml) 1 gm in 200 mls @ 133.333 mls/hr IVPB TTS [facility] Stop: 08/20/17 10:01 Last Admin: 08/15/17 12:07 Dose: 133.333 mls/hr Cefepime HCl (Maxipime Iv 1 Gm Premix) 1 gm in 50 mls @ 100 mls/hr IVPB Q12H [facility] Last Admin: 08/16/17 17:51 Dose: 100 mls/hr Metronidazole (Flagyl) 500 mg in 100 mls @ 100 mls/hr IVPB Q8 [facility] Last Admin: 08/16/17 13:51 Dose: 100 mls/hr Levothyroxine Sodium (Synthroid) 25 mcg PO DAILY@0630 [facility] Last Admin: 08/16/17 05:30 Dose: 25 mcg Megestrol Acetate (Megace) 400 mg PO DAILY [facility] Last Admin: 08/16/17 10:14 Dose: Not Given Metoprolol Tartrate (Lopressor) 25 mg PO BID [facility] Last Admin: 07/30/17 18:16 Dose: Not Given Midodrine (Proamatine) 5 mg PO TID [facility] Last Admin: 08/16/17 17:51 Dose: Not Given Multivitamins (Hexavitamin) 1 tab PO DAILY [facility] Last Admin: 08/16/17 10:14 Dose: Not Given Mupirocin (Bactroban Ointment) 0 gm TOP BID [facility] Last Admin: 08/16/17 10:14 Dose: Not Given Paricalcitol (Zemplar) 2 mcg IV TTS [facility] Last Admin: 08/15/17 11:14 Dose: 2 mcg Tamsulosin HCl (Flomax) 0.4 mg PO DAILY [facility] Last Admin: 08/16/17 10:14 Dose: Not Given - Labs Labs: 08/16/17 08:01 08/16/17 08:01 PT 17.1 SECONDS (9.7-12.2) H 08/09/17 19:57 INR 1.5 08/09/17 19:57 APTT 36 SECONDS (21-34) H 08/09/17 19:57 - Constitutional Appears: Non-toxic, Cachectic, Chronically Ill - Head Exam Head Exam: NORMOCEPHALIC - Eye Exam Eye Exam: PERRL - ENT Exam ENT Exam: Mucous Membranes Dry - Neck Exam Neck Exam: absent: Lymphadenopathy - Respiratory Exam Respiratory Exam: Decreased Breath Sounds, Rhonchi - Cardiovascular Exam Cardiovascular Exam: REGULAR RHYTHM - GI/Abdominal Exam GI & Abdominal Exam: Distended, Soft Assessment and Plan (1) Fever Status: Acute (2) Leukocytosis Status: Acute (3) UTI (urinary tract infection) Status: Acute (4) Acute renal failure Status: Acute (5) Generalized weakness Status: Acute (6) Hyperkalemia Status: Acute (7) Troponin level elevated Status: Acute (8) UTI (urinary tract infection) due to Enterococcus Status: Acute (9) UTI (urinary tract infection) due to Enterococcus Status: Acute (10) UTI due to Klebsiella species Status: Acute (11) UTI due to Klebsiella species Status: Acute
--- NOTE | 2017-08-16 20:37 | PN ---
DATE: FOLLOWUP RENAL CONSULTATION LOCATION: The patient is located in room 357, bed A. REQUESTING PHYSICIAN: Daniel Coyle MD REASON FOR FOLLOWUP: End-stage renal disease, for continuation of hemodialysis. SUBJECTIVE: Mr. Cunningham is an 82 years old elderly male with a past medical history significant for longstanding hypertension, coronary artery disease, CHF, CABG, tophaceous gout, renal failure, anemia, CHF, was [facility] to [facility] with chief complaints of altered mental status, increase in BUN and creatinine, shortness of breath, and being treated for urosepsis initially. Subsequently, patient was admitted on ICU for code sepsis, shock liver, worsening renal function, anemia, requiring initiation of pressors and also initiation of the hemodialysis. Patient is on hemodialysis three times a week, Saturday, , Saturday. Patient was seen and examined in recovery after the PEG tube placement. Not in distress, slightly drowsy, opens eyes to verbal stimuli. PHYSICAL EXAMINATION: VITAL SIGNS: As follows: Blood pressure this morning 146/57, pulse 93, respirations 15, temperature 97.8, and saturation 97%. Height 6 feet 3 inches and weight is 183 pounds. GENERAL: Mr. Cunningham is an 82 years old elderly male, moderately built, moderately nourished, not in distress. HEENT: Pupils normal and reactive to light and accommodation. Conjunctivae pink. Sclerae are anicteric. Tongue is moist and trachea is midline. LUNGS: Symmetric on both sides. Bilateral breath sounds present. Basal crackles present. CARDIOVASCULAR SYSTEM: [place] at the fifth intercostal space, midclavicular line. S1, S2 audible. No murmur, no gallop. ABDOMEN: Normal in appearance, status post PEG tube placement. Abdomen is soft, tympanic. No guarding. No rigidity. No hepatosplenomegaly. CENTRAL NEROUV SYSTEM: Patient is not drowsy, arousable. EXTREMITIES: No cyanosis. No clubbing. Patient has one to two plus edema in both upper and lower extremities. Edema is slightly better than earlier this week. CURRENT MEDICATIONS: Include as follows: Aspirin, mupirocin, Flagyl, Flomax, multivitamin, cefepime, Megace, famotidine, Plavix, midodrine, Procrit, Proscar, Synthroid, vitamin C, vancomycin, and Zemplar. GI was recommending to hold aspirin and Plavix this morning, as per the endoscopy nurse. LABORATORY DATA: Include as follows: As of 08/16/2017, WBC 7.4, hemoglobin 9.8, hematocrit is 31.2, platelets 205. ABG: pH 7.47, pCO2 of 40, pO2 of 51, bicarb is 28.7, saturation 90.6. Sodium 135, potassium is 4.0, chloride 100, CO2 of 25, BUN 31, creatinine 2.3, glucose 80, calcium 7.8, and phosphorus is 4. Bilirubin is 1.3, AST 29, ALT 53, alkaline phosphatase is 105, total protein 5.9, albumin is 2.9. Pleural fluid analysis. Clear and WBC 18 and RBC 120. Fluid cell count is 100, neutrophils 21, lymph is 73, and monocyte/macrophage is 6. ASSESSMENT AND PLAN: In summary, Mr. Cunningham is about 82 years old elderly male with a history of hypertension, coronary artery disease status post coronary artery bypass graft, gout, congestive heart failure, renal failure with worsening renal function, was admitted with altered mental status, shortness of breath, and being treated for a urinary tract infection and also pneumonia, congestive heart failure; on hemodialysis three times a week, Saturday, , Saturday; status post percutaneous endoscopic gastrostomy tube placement and patient underwent thoracentesis this morning and removal of about 1100 mL from the right thoracentesis by interventional radiologist. 1. End-stage renal disease. Continue hemodialysis three times a week, Saturday, , Saturday. 2. Anemia. Hemoglobin and hematocrit is slowly improving. 3. Fluid overload. 4. Congestive heart failure. 5. Rule out pneumonia. 6. Status post percutaneous endoscopic gastrostomy tube placement. Continue to hold Plavix and aspirin as per the Gastrointestinal recommendations and also percutaneous endoscopic gastrostomy feeding as recommended by Gastrointestinal and we will schedule for hemodialysis in a.m. We will follow with you. Thank you for allowing me to participate in your patient's care. Hernan Peterson MD
--- NOTE | 2017-08-16 23:07 | CP.PCM.PN ---
Subjective - Date & Time of Evaluation Date of Evaluation: 08/16/17 Time of Evaluation: 20:00 - Subjective Subjective: Pt seen and evalauted today, for thoracentesis today Large pleural effusion on CAT scan Shortness of breath On hemodialysis pt is confused, pt is placed on BIPAP, PCO2 level is normal, s/p peg placement Objective - Vital Signs/Intake and Output Vital Signs (last 24 hours): Temp Pulse Resp BP Pulse Ox 97.2 F L 92 H 20 102/63 93 L 08/16/17 15:00 08/16/17 15:00 08/16/17 15:00 08/16/17 15:00 08/16/17 15:00 Intake and Output: 08/16/17 08/17/17 18:59 06:59 Intake Total 100 Output Total 300 Balance -200 - Medications Medications: Current Medications Acetaminophen (Tylenol 325mg Tab) 650 mg PO Q4 PRN PRN Reason: Pain, moderate (4-7) Last Admin: 08/15/17 05:44 Dose: 650 mg Acetaminophen (Tylenol 325mg Tab) 650 mg PO Q6 PRN PRN Reason: FEVER ABOVE 101 OR NASCIMENTO Ascorbic Acid (Vitamin C 500 Mg Tab) 500 mg PO DAILY [facility] Last Admin: 08/16/17 10:00 Dose: Not Given Aspirin (Aspirin Chewable) 81 mg PO DAILY [facility] Last Admin: 08/16/17 10:14 Dose: Not Given Clopidogrel Bisulfate (Plavix) 75 mg PO DAILY [facility] Last Admin: 08/16/17 10:14 Dose: Not Given Epoetin Jacobo (Procrit) 10,000 unit IV TTS [facility] Last Admin: 08/15/17 11:13 Dose: 10,000 unit Famotidine (Pepcid) 20 mg PO DAILY [facility] Last Admin: 08/16/17 10:14 Dose: Not Given Finasteride (Proscar) 5 mg PO DAILY [facility] Last Admin: 08/16/17 10:15 Dose: Not Given Hydralazine HCl (Apresoline) 25 mg PO BID [facility] Last Admin: 07/29/17 17:38 Dose: Not Given Vancomycin/Sodium Chloride (Vancomycin 1 Gm/Ns 200 Ml) 1 gm in 200 mls @ 133.333 mls/hr IVPB TTS [facility] Stop: 08/20/17 10:01 Last Admin: 08/15/17 12:07 Dose: 133.333 mls/hr Cefepime HCl (Maxipime Iv 1 Gm Premix) 1 gm in 50 mls @ 100 mls/hr IVPB Q12H [facility] Last Admin: 08/16/17 17:51 Dose: 100 mls/hr Metronidazole (Flagyl) 500 mg in 100 mls @ 100 mls/hr IVPB Q8 [facility] Last Admin: 08/16/17 21:48 Dose: 100 mls/hr Levothyroxine Sodium (Synthroid) 25 mcg PO DAILY@0630 [facility] Last Admin: 08/16/17 05:30 Dose: 25 mcg Megestrol Acetate (Megace) 400 mg PO DAILY [facility] Last Admin: 08/16/17 10:14 Dose: Not Given Metoprolol Tartrate (Lopressor) 25 mg PO BID [facility] Last Admin: 07/30/17 18:16 Dose: Not Given Midodrine (Proamatine) 5 mg PO TID [facility] Last Admin: 08/16/17 17:51 Dose: Not Given Multivitamins (Hexavitamin) 1 tab PO DAILY [facility] Last Admin: 08/16/17 10:14 Dose: Not Given Mupirocin (Bactroban Ointment) 0 gm TOP BID [facility] Last Admin: 08/16/17 10:14 Dose: Not Given Paricalcitol (Zemplar) 2 mcg IV TTS [facility] Last Admin: 08/15/17 11:14 Dose: 2 mcg Tamsulosin HCl (Flomax) 0.4 mg PO DAILY [facility] Last Admin: 08/16/17 10:14 Dose: Not Given - Labs Labs: 08/16/17 08:01 08/16/17 08:01 PT 17.1 SECONDS (9.7-12.2) H 08/09/17 19:57 INR 1.5 08/09/17 19:57 APTT 36 SECONDS (21-34) H 08/09/17 19:57 - Constitutional Appears: No Acute Distress - Head Exam Head Exam: ATRAUMATIC, NORMAL INSPECTION, NORMOCEPHALIC - Eye Exam Eye Exam: EOMI, Normal appearance, PERRL Pupil Exam: NORMAL ACCOMODATION, PERRL - Respiratory Exam Respiratory Exam: Decreased Breath Sounds, Rales, Rhonchi - Cardiovascular Exam Cardiovascular Exam: REGULAR RHYTHM, +S1, +S2. absent: Murmur - GI/Abdominal Exam GI & Abdominal Exam: Soft, Normal Bowel Sounds. absent: Tenderness Assessment and Plan (1) Fever Status: Acute (2) Leukocytosis Status: Acute (3) UTI (urinary tract infection) Status: Acute (4) Leg ulcer Status: Acute (5) Toxic metabolic encephalopathy Status: Acute
--- NOTE | 2017-08-17 04:21 | CP.PCM.PN ---
Subjective - Date & Time of Evaluation Date of Evaluation: 08/17/17 Time of Evaluation: 10:00 - Subjective Subjective: Pt seen and examined, more laert, on BIPAP, not short of breath, on peg feed Objective - Vital Signs/Intake and Output Vital Signs (last 24 hours): Temp Pulse Resp BP Pulse Ox 98.2 F 94 H 20 101/67 98 08/17/17 00:08 08/17/17 00:11 08/17/17 00:08 08/17/17 00:08 08/17/17 00:08 Intake and Output: 08/16/17 08/17/17 18:59 06:59 Intake Total 100 Output Total 300 50 Balance -200 -50 - Medications Medications: Current Medications Acetaminophen (Tylenol 325mg Tab) 650 mg PO Q4 PRN PRN Reason: Pain, moderate (4-7) Last Admin: 08/15/17 05:44 Dose: 650 mg Acetaminophen (Tylenol 325mg Tab) 650 mg PO Q6 PRN PRN Reason: FEVER ABOVE 101 OR NASCIMENTO Ascorbic Acid (Vitamin C 500 Mg Tab) 500 mg PO DAILY [facility] Last Admin: 08/16/17 10:00 Dose: Not Given Aspirin (Aspirin Chewable) 81 mg PO DAILY [facility] Last Admin: 08/16/17 10:14 Dose: Not Given Clopidogrel Bisulfate (Plavix) 75 mg PO DAILY [facility] Last Admin: 08/16/17 10:14 Dose: Not Given Epoetin Jacobo (Procrit) 10,000 unit IV TTS [facility] Last Admin: 08/15/17 11:13 Dose: 10,000 unit Famotidine (Pepcid) 20 mg PO DAILY [facility] Last Admin: 08/16/17 10:14 Dose: Not Given Finasteride (Proscar) 5 mg PO DAILY [facility] Last Admin: 08/16/17 10:15 Dose: Not Given Hydralazine HCl (Apresoline) 25 mg PO BID [facility] Last Admin: 07/29/17 17:38 Dose: Not Given Vancomycin/Sodium Chloride (Vancomycin 1 Gm/Ns 200 Ml) 1 gm in 200 mls @ 133.333 mls/hr IVPB TTS [facility] Stop: 08/20/17 10:01 Last Admin: 08/15/17 12:07 Dose: 133.333 mls/hr Cefepime HCl (Maxipime Iv 1 Gm Premix) 1 gm in 50 mls @ 100 mls/hr IVPB Q12H [facility] Last Admin: 08/16/17 17:51 Dose: 100 mls/hr Metronidazole (Flagyl) 500 mg in 100 mls @ 100 mls/hr IVPB Q8 [facility] Last Admin: 08/16/17 21:48 Dose: 100 mls/hr Levothyroxine Sodium (Synthroid) 25 mcg PO DAILY@0630 [facility] Last Admin: 08/16/17 05:30 Dose: 25 mcg Megestrol Acetate (Megace) 400 mg PO DAILY [facility] Last Admin: 08/16/17 10:14 Dose: Not Given Metoprolol Tartrate (Lopressor) 25 mg PO BID [facility] Last Admin: 07/30/17 18:16 Dose: Not Given Midodrine (Proamatine) 5 mg PO TID [facility] Last Admin: 08/16/17 17:51 Dose: Not Given Multivitamins (Hexavitamin) 1 tab PO DAILY [facility] Last Admin: 08/16/17 10:14 Dose: Not Given Mupirocin (Bactroban Ointment) 0 gm TOP BID [facility] Last Admin: 08/16/17 10:14 Dose: Not Given Paricalcitol (Zemplar) 2 mcg IV TTS [facility] Last Admin: 08/15/17 11:14 Dose: 2 mcg Tamsulosin HCl (Flomax) 0.4 mg PO DAILY [facility] Last Admin: 08/16/17 10:14 Dose: Not Given - Labs Labs: 08/16/17 08:01 08/16/17 08:01 PT 17.1 SECONDS (9.7-12.2) H 08/09/17 19:57 INR 1.5 08/09/17 19:57 APTT 36 SECONDS (21-34) H 08/09/17 19:57 - Constitutional Appears: No Acute Distress, Chronically Ill - Head Exam Head Exam: ATRAUMATIC, NORMAL INSPECTION, NORMOCEPHALIC - Eye Exam Eye Exam: EOMI, Normal appearance, PERRL Pupil Exam: NORMAL ACCOMODATION, PERRL - Respiratory Exam Respiratory Exam: Decreased Breath Sounds, Rales - Cardiovascular Exam Cardiovascular Exam: REGULAR RHYTHM, +S1, +S2. absent: Murmur Assessment and Plan (1) Fever Status: Acute (2) Leukocytosis Status: Acute (3) UTI (urinary tract infection) Status: Acute (4) Leg ulcer Status: Acute (5) Toxic metabolic encephalopathy Status: Acute (6) Pleural effusion Status: Acute
[2017-08-17] MEDS: Cefepime IV 1 gm in Dextrose 1 GM/50 ML BAG IVPB SCH ×2 (05:23→18:02)
[2017-08-17] MEDS: Levothyroxine 25 MCG TAB PO SCH (05:56)
[2017-08-17] MEDS: metroNIDAZOLE IV 500 mg/100 ml 500 MG/100 ML BAG IVPB SCH ×3 (05:57→21:28)
[2017-08-17 07:36] LABS: BASO # 0.1 K/uL (0.0-0.2); BASO % 0.7 % (0.0-2.0); EOS # 0.1 K/uL (0.0-0.7); EOS % 0.8 % (0.0-4.0); HEMATOCRIT 32.9 % (35.0-51.0); LYMPH # 1.4 K/uL (1.0-4.3); LYMPH % 16.5 % (20.0-40.0); MEAN CELL VOLUME 91.8 fL (80.0-94.0); MEAN CORPUSCULAR HEMOGLOBIN 28.6 pg (27.0-31.0); MEAN CORPUSCULAR HGB CONC 31.2 g/dL (33.0-37.0); MEAN PLATELET VOLUME 8.7 fL (7.2-11.7); MONO # 0.5 K/uL (0.0-0.8); MONO % 5.7 % (0.0-10.0); NRBC % 0.2 % (0.0-2.0); RED CELL DISTRIBUTION WIDTH 21.8 % (11.5-14.5); WHITE BLOOD COUNT 8.4 K/uL (4.8-10.8)
[2017-08-17 08:05] LABS: BILIRUBIN,TOTAL 1.6 mg/dL (0.2-1.3); CALCIUM 7.8 mg/dl (8.6-10.4)
[2017-08-17 08:10] LABS: ALB/GLOB RATIO 0.9 (1.0-2.1)
[2017-08-17] MEDS: Multiple Vitamins Tab PO SCH (09:00)
[2017-08-17] MEDS: Megestrol Acetate 40 mg/ml Cup PO SCH (09:00)
[2017-08-17] MEDS: Paricalcitol 2 mcg/ml Inj IV SCH (10:46)
[2017-08-17] MEDS: Epoetin Alfa 10,000 unit/ml Dialysis IV SCH (10:48)
[2017-08-17] MEDS: Vancomycin 1 gm/NS 200 ml 1 GM/200 ML BAG IVPB SCH ×2 (10:55→12:28)
--- NOTE | 2017-08-17 13:27 | RAD ---
HISTORY: f/u thoracentesis COMPARISON: No prior. FINDINGS: In situ right IJ dialysis catheter with tips in the SVC/RA junction. LUNGS: Pulmonary vascular congestive changes with bilateral mid to lower lobe alveolar-type infiltrates and bilateral effusions. Findings may be secondary to fluid overload or CHF. Clinical correlation recommended. PLEURA: No significant pleural effusion identified, no pneumothorax apparent. CARDIOVASCULAR: Sternotomy wires again noted. Heart remains enlarged. Aorta is ectatic and uncoiled. OSSEOUS STRUCTURES: No significant abnormalities. VISUALIZED UPPER ABDOMEN: Normal. OTHER FINDINGS: None. IMPRESSION: Pulmonary vascular congestive changes with bilateral mid to lower lobe alveolar-type infiltrates and bilateral effusions. Findings may be secondary to fluid overload or CHF. Clinical correlation recommended. Cardiomegaly.
--- NOTE | 2017-08-17 17:48 | CP.PCM.PN ---
Subjective - Date & Time of Evaluation Date of Evaluation: 08/17/17 Time of Evaluation: 16:00 - Subjective Subjective: The patient seen and examined Status post thoracentesis yesterday with removal of 1100 cc of fluid Status post PEG insertion Remains on BiPAP Awake Afebrile Objective - Vital Signs/Intake and Output Vital Signs (last 24 hours): Temp Pulse Resp BP Pulse Ox 97.6 F 98 H 20 106/63 96 08/17/17 15:41 08/17/17 15:41 08/17/17 15:41 08/17/17 15:41 08/17/17 15:41 Intake and Output: 08/17/17 08/17/17 06:59 18:59 Intake Total 150 555 Output Total 100 50 Balance 50 505 - Medications Medications: Current Medications Acetaminophen (Tylenol 325mg Tab) 650 mg PO Q4 PRN PRN Reason: Pain, moderate (4-7) Last Admin: 08/17/17 06:25 Dose: 650 mg Acetaminophen (Tylenol 325mg Tab) 650 mg PO Q6 PRN PRN Reason: FEVER ABOVE 101 OR NASCIMENTO Ascorbic Acid (Vitamin C 500 Mg Tab) 500 mg PO DAILY [facility] Last Admin: 08/17/17 10:55 Dose: Not Given Aspirin (Aspirin Chewable) 81 mg PO DAILY [facility] Last Admin: 08/17/17 09:00 Dose: Not Given Clopidogrel Bisulfate (Plavix) 75 mg PO DAILY [facility] Last Admin: 08/17/17 09:00 Dose: Not Given Epoetin Jacobo (Procrit) 10,000 unit IV TTS [facility] Last Admin: 08/17/17 10:48 Dose: 10,000 unit Famotidine (Pepcid) 20 mg PO DAILY [facility] Last Admin: 08/17/17 09:00 Dose: Not Given Finasteride (Proscar) 5 mg PO DAILY [facility] Last Admin: 08/17/17 09:01 Dose: Not Given Hydralazine HCl (Apresoline) 10 mg PO BID [facility] Vancomycin/Sodium Chloride (Vancomycin 1 Gm/Ns 200 Ml) 1 gm in 200 mls @ 133.333 mls/hr IVPB TTS [facility] Stop: 08/20/17 10:01 Last Admin: 08/17/17 12:28 Dose: 133.333 mls/hr Cefepime HCl (Maxipime Iv 1 Gm Premix) 1 gm in 50 mls @ 100 mls/hr IVPB Q12H [facility] Last Admin: 08/17/17 05:23 Dose: 100 mls/hr Metronidazole (Flagyl) 500 mg in 100 mls @ 100 mls/hr IVPB Q8 [facility] Last Admin: 08/17/17 13:14 Dose: 100 mls/hr Levothyroxine Sodium (Synthroid) 25 mcg PO DAILY@0630 [facility] Last Admin: 08/17/17 05:56 Dose: 25 mcg Megestrol Acetate (Megace) 400 mg PO DAILY [facility] Last Admin: 08/17/17 09:00 Dose: Not Given Metoprolol Tartrate (Lopressor) 25 mg PO BID [facility] Last Admin: 07/30/17 18:16 Dose: Not Given Midodrine (Proamatine) 5 mg PO TID [facility] Last Admin: 08/17/17 13:16 Dose: 5 mg Multivitamins (Hexavitamin) 1 tab PO DAILY [facility] Last Admin: 08/17/17 09:00 Dose: Not Given Mupirocin (Bactroban Ointment) 0 gm TOP BID [facility] Last Admin: 08/17/17 09:00 Dose: Not Given Paricalcitol (Zemplar) 2 mcg IV TTS [facility] Last Admin: 08/17/17 10:46 Dose: 2 mcg Tamsulosin HCl (Flomax) 0.4 mg PO DAILY [facility] Last Admin: 08/17/17 09:00 Dose: Not Given - Labs Labs: 08/17/17 07:06 08/17/17 07:06 PT 17.1 SECONDS (9.7-12.2) H 08/09/17 19:57 INR 1.5 08/09/17 19:57 APTT 36 SECONDS (21-34) H 08/09/17 19:57 Assessment and Plan (1) Dyspnea Status: Acute
--- NOTE | 2017-08-17 18:29 | CP.PCM.PN ---
Subjective - Date & Time of Evaluation Date of Evaluation: 08/17/17 Time of Evaluation: 18:29 - Subjective Subjective: pt is seen and examined, follow up consult is dictated #[id number] s/p hd today Objective - Vital Signs/Intake and Output Vital Signs (last 24 hours): Temp Pulse Resp BP Pulse Ox 97.6 F 98 H 20 106/63 96 08/17/17 15:41 08/17/17 15:41 08/17/17 15:41 08/17/17 15:41 08/17/17 15:41 Intake and Output: 08/17/17 08/17/17 06:59 18:59 Intake Total 150 555 Output Total 100 50 Balance 50 505 - Medications Medications: Current Medications Acetaminophen (Tylenol 325mg Tab) 650 mg PO Q4 PRN PRN Reason: Pain, moderate (4-7) Last Admin: 08/17/17 06:25 Dose: 650 mg Acetaminophen (Tylenol 325mg Tab) 650 mg PO Q6 PRN PRN Reason: FEVER ABOVE 101 OR NASCIMENTO Ascorbic Acid (Vitamin C 500 Mg Tab) 500 mg PO DAILY [facility] Last Admin: 08/17/17 10:55 Dose: Not Given Aspirin (Aspirin Chewable) 81 mg PO DAILY [facility] Last Admin: 08/17/17 09:00 Dose: Not Given Clopidogrel Bisulfate (Plavix) 75 mg PO DAILY [facility] Last Admin: 08/17/17 09:00 Dose: Not Given Epoetin Jacobo (Procrit) 10,000 unit IV TTS [facility] Last Admin: 08/17/17 10:48 Dose: 10,000 unit Famotidine (Pepcid) 20 mg PO DAILY [facility] Last Admin: 08/17/17 09:00 Dose: Not Given Finasteride (Proscar) 5 mg PO DAILY [facility] Last Admin: 08/17/17 09:01 Dose: Not Given Hydralazine HCl (Apresoline) 10 mg PO BID [facility] Vancomycin/Sodium Chloride (Vancomycin 1 Gm/Ns 200 Ml) 1 gm in 200 mls @ 133.333 mls/hr IVPB TTS [facility] Stop: 08/20/17 10:01 Last Admin: 08/17/17 12:28 Dose: 133.333 mls/hr Cefepime HCl (Maxipime Iv 1 Gm Premix) 1 gm in 50 mls @ 100 mls/hr IVPB Q12H [facility] Last Admin: 08/17/17 18:02 Dose: 100 mls/hr Metronidazole (Flagyl) 500 mg in 100 mls @ 100 mls/hr IVPB Q8 [facility] Last Admin: 08/17/17 13:14 Dose: 100 mls/hr Levothyroxine Sodium (Synthroid) 25 mcg PO DAILY@0630 [facility] Last Admin: 08/17/17 05:56 Dose: 25 mcg Megestrol Acetate (Megace) 400 mg PO DAILY [facility] Last Admin: 08/17/17 09:00 Dose: Not Given Metoprolol Tartrate (Lopressor) 25 mg PO BID [facility] Last Admin: 07/30/17 18:16 Dose: Not Given Midodrine (Proamatine) 5 mg PO TID [facility] Last Admin: 08/17/17 13:16 Dose: 5 mg Multivitamins (Hexavitamin) 1 tab PO DAILY [facility] Last Admin: 08/17/17 09:00 Dose: Not Given Mupirocin (Bactroban Ointment) 0 gm TOP BID [facility] Last Admin: 08/17/17 09:00 Dose: Not Given Paricalcitol (Zemplar) 2 mcg IV TTS [facility] Last Admin: 08/17/17 10:46 Dose: 2 mcg Tamsulosin HCl (Flomax) 0.4 mg PO DAILY [facility] Last Admin: 08/17/17 09:00 Dose: Not Given - Labs Labs: 08/17/17 07:06 08/17/17 07:06 PT 17.1 SECONDS (9.7-12.2) H 08/09/17 19:57 INR 1.5 08/09/17 19:57 APTT 36 SECONDS (21-34) H 08/09/17 19:57
--- NOTE | 2017-08-18 03:13 | CON ---
FOLLOWUP RENAL CONSULTATION LOCATION: Patient is located in room 357, bed A. REQUESTED BY: Daniel Coyle MD REASON FOR FOLLOWUP: End-stage renal disease for continuation of the hemodialysis. HISTORY OF PRESENT ILLNESS: Mr. Cunningham is about 82 years old elderly -[place] male with a past medical history significant for longstanding hypertension, coronary artery disease status post CABG, gout, renal failure, anemia, who was admitted with altered mental status and shortness of breath and worsening renal function from the care home status post treatment for urosepsis, code sepsis and shock liver. The patient was found to have a worsening renal function in the emergency room and in the ICU with worsening renal function and started on hemodialysis. The patient is feeling much better now. Patient is on hemodialysis three times a week, not in acute distress. Patient underwent PEG tube placement yesterday. Patient underwent hemodialysis this morning, had ultrafiltration about 1 liter. The patient is following simple commands, not in acute distress. PHYSICAL EXAMINATION: GENERAL: Mr. Cunningham is an 82 years old elderly -[place] male, moderately built, moderate nourished, not in acute distress. VITAL SIGNS: As follows, blood pressure 106/63, pulse 98, respirations 20, temperature 97.6, saturation 96%. Height 6 feet 3 inches, weight is 183 pounds. HEENT: Pupils are normal, reactive to light and accommodation. Conjunctivae pink. Sclerae anicteric. Tongue is moist. Trachea is midline. LUNGS: Symmetrical on both sides. Bilateral breath sounds present. Occasional basal crackles present. CVS: [place] at the fifth intercostal space, midclavicular line. S1 and S2 audible. No murmur or gallop. ABDOMEN: Normal in appearance, status post PEG tube placement. Abdomen is soft, tympanic. No guarding. No rigidity. No hepatosplenomegaly. CAT OPERATOR: The patient is arousable, following simple commands. Sensory system is grossly within normal limits. Motor system, patient is moving all the extremities. EXTREMITIES: No cyanosis, no clubbing. The patient has 1+ edema in both lower extremities and upper extremities. CURRENT MEDICATIONS: Include as follows; aspirin 81 mg daily, Bactroban ointment topical, metronidazole 500 mg q.8 hours, Flomax 0.4 mg p.o. daily, multivitamin 1 tablet daily, cefepime 1 g q.12 hours, Megace 400 mg daily, Pepcid 20 mg daily, Plavix 75 mg daily, midodrine 5 mg p.o. t.i.d., Procrit 10,000 units three times a week, Proscar 5 mg daily, Synthroid 25 mcg daily, Tylenol and vancomycin 1 g three times a week, vitamin C 500 mg p.o. daily, and Zemplar 2 mcg three times a week LABORATORY DATA: Include as follows, as of 08/17/2017; WBC 8.4, hemoglobin 10.3, hematocrit is 32.9, platelets 199. Sodium 135, potassium is 4, chloride 102, CO2 of 23, BUN 36, creatinine 2.86, glucose is 70, calcium is 7.8, total bili 1.6, AST 31, ALT 45, alkaline phosphatase is 105, total protein 6.0, and albumin is 2.8. ASSESSMENT AND PLAN: In summary, Mr. Cunningham is 82 years old elderly -[place] male with a history of hypertension, coronary artery disease status post coronary artery bypass graft, gout, status post urosepsis, anemia, congestive heart failure, status post right thoracentesis and drained about 1.5 liters, and renal failure on hemodialysis three times a week. 1. Renal failure most likely end-stage renal disease. Continue hemodialysis three times a week Saturday, , and Saturday. 2. Anemia secondary to renal failure and iron deficiency. H and H is improving. Continue Procrit three times a week during dialysis. 3. Hypertension. Blood pressure is on the low side and blood pressure medicines on hold. Hydralazine and metoprolol are on hold. Continue percutaneous endoscopic gastrostomy feeding as with gastrointestinal recommendations and consider rehab placement and also followup for outpatient hemodialysis unit appointment. We will follow with you. Thank you for allowing me to participate in your patient's care. Hernan Peterson MD
[2017-08-18 04:56] LABS: AMYLASE PLEURAL FLUID 13 U/L
[2017-08-18] MEDS: metroNIDAZOLE IV 500 mg/100 ml 500 MG/100 ML BAG IVPB SCH ×3 (05:10→21:11)
[2017-08-18] MEDS: Levothyroxine 25 MCG TAB PO SCH (06:00)
[2017-08-18] MEDS: Cefepime IV 1 gm in Dextrose 1 GM/50 ML BAG IVPB SCH ×2 (06:05→17:00)
[2017-08-18] MEDS: Megestrol Acetate 40 mg/ml Cup PO SCH (09:07)
[2017-08-18] MEDS: Multiple Vitamins Tab PO SCH (09:08)
--- NOTE | 2017-08-18 10:17 | PN ---
DATE: LOCATION: [facility], bed A. SUBJECTIVE: This is an 82-year-old male seen and examined in rounds post PEG insertion, still on BiPAP on and off, tolerating PEG feeding well. The patient also is status post ultrasound-guided thoracocentesis with less shortness of breath. The entire chart is reviewed including but not limited to the most recent lab and radiology study results, current and the previous medication list, current and the previous medical events. Today's lab showed blood glucose level of 108 and the most recent chest x-ray done yesterday, report is seen. PHYSICAL EXAMINATION: GENERAL: An 82 years old male. VITAL SIGNS: Afebrile with pulse of 92, respiratory rate 20 to 22, blood pressure 110/72. HEENT: Showed pale, dry oral mucous membrane, nonicteric sclerae. LUNGS: Few scattered crepitation. Decreased air entry at bases. HEART: Positive S1 and S2. ABDOMEN: Soft. Bowel sounds are present. No mass or organomegaly. No rebound tenderness or guarding. PEG tube is in place. EXTREMITIES: Without significant clubbing, cyanosis or edema. NEUROLOGIC: No reported new neurological deficit, sensory or motor. IMPRESSION: 1. Failure to thrive. 2. Malnutrition with hypoalbuminemia. 3. Status post percutaneous endoscopic gastrostomy insertion. 4. Pneumonia, pleural effusion, respiratory insufficiency with status post thoracocentesis. 5. Peptic ulcer disease by history. 6. Acute renal insufficiency. 7. Anemia secondary to above. SUGGESTIONS: 1. Continue current management. 2. Subsequent increase of the rate of feeding. Katia Pardo MD
[2017-08-18 16:58] LABS: LDH PLEURAL FLUID 52 U/L
--- NOTE | 2017-08-18 17:10 | CP.PCM.PN ---
Subjective - Date & Time of Evaluation Date of Evaluation: 08/18/17 Time of Evaluation: 09:00 - Subjective Subjective: afeb more alert less SOB rx in progress Objective - Vital Signs/Intake and Output Vital Signs (last 24 hours): Temp Pulse Resp BP Pulse Ox 97.4 F L 97 H 20 102/70 93 L 08/18/17 15:00 08/18/17 15:00 08/18/17 15:00 08/18/17 15:00 08/18/17 15:00 Intake and Output: 08/18/17 08/18/17 06:59 18:59 Intake Total 895 Output Total 300 400 Balance 595 -400 - Medications Medications: Current Medications Acetaminophen (Tylenol 325mg Tab) 650 mg PO Q4 PRN PRN Reason: Pain, moderate (4-7) Last Admin: 08/17/17 06:25 Dose: 650 mg Acetaminophen (Tylenol 325mg Tab) 650 mg PO Q6 PRN PRN Reason: FEVER ABOVE 101 OR NASCIMENTO Ascorbic Acid (Vitamin C 500 Mg Tab) 500 mg PO DAILY [facility] Last Admin: 08/18/17 09:09 Dose: 500 mg Aspirin (Aspirin Chewable) 81 mg PO DAILY [facility] Last Admin: 08/18/17 09:08 Dose: 81 mg Clopidogrel Bisulfate (Plavix) 75 mg PO DAILY [facility] Last Admin: 08/18/17 09:08 Dose: 75 mg Epoetin Jacobo (Procrit) 10,000 unit IV TTS [facility] Last Admin: 08/17/17 10:48 Dose: 10,000 unit Famotidine (Pepcid) 20 mg PO DAILY [facility] Last Admin: 08/18/17 09:09 Dose: 20 mg Finasteride (Proscar) 5 mg PO DAILY [facility] Last Admin: 08/18/17 09:08 Dose: 5 mg Hydralazine HCl (Apresoline) 10 mg PO BID [facility] Vancomycin/Sodium Chloride (Vancomycin 1 Gm/Ns 200 Ml) 1 gm in 200 mls @ 133.333 mls/hr IVPB TTS [facility] Stop: 08/20/17 10:01 Last Admin: 08/17/17 12:28 Dose: 133.333 mls/hr Cefepime HCl (Maxipime Iv 1 Gm Premix) 1 gm in 50 mls @ 100 mls/hr IVPB Q12H [facility] Last Admin: 08/18/17 17:00 Dose: 100 mls/hr Metronidazole (Flagyl) 500 mg in 100 mls @ 100 mls/hr IVPB Q8 [facility] Last Admin: 08/18/17 13:36 Dose: 100 mls/hr Levothyroxine Sodium (Synthroid) 25 mcg PO DAILY@0630 [facility] Last Admin: 08/18/17 06:00 Dose: 25 mcg Megestrol Acetate (Megace) 400 mg PO DAILY [facility] Last Admin: 08/18/17 09:07 Dose: 400 mg Metoprolol Tartrate (Lopressor) 25 mg PO BID [facility] Last Admin: 07/30/17 18:16 Dose: Not Given Midodrine (Proamatine) 5 mg PO TID [facility] Last Admin: 08/18/17 17:00 Dose: 5 mg Multivitamins (Hexavitamin) 1 tab PO DAILY [facility] Last Admin: 08/18/17 09:08 Dose: 1 tab Mupirocin (Bactroban Ointment) 0 gm TOP BID [facility] Last Admin: 08/18/17 17:00 Dose: 1 applic Paricalcitol (Zemplar) 2 mcg IV TTS [facility] Last Admin: 08/17/17 10:46 Dose: 2 mcg Tamsulosin HCl (Flomax) 0.4 mg PO DAILY [facility] Last Admin: 08/18/17 09:08 Dose: 0.4 mg - Labs Labs: 08/17/17 07:06 08/17/17 07:06 PT 17.1 SECONDS (9.7-12.2) H 08/09/17 19:57 INR 1.5 08/09/17 19:57 APTT 36 SECONDS (21-34) H 08/09/17 19:57 - Constitutional Appears: Non-toxic, Chronically Ill - Head Exam Head Exam: NORMOCEPHALIC - Eye Exam Eye Exam: PERRL - ENT Exam ENT Exam: Mucous Membranes Dry - Neck Exam Neck Exam: absent: Lymphadenopathy - Respiratory Exam Respiratory Exam: Decreased Breath Sounds - Cardiovascular Exam Cardiovascular Exam: REGULAR RHYTHM - GI/Abdominal Exam GI & Abdominal Exam: Distended, Soft Assessment and Plan (1) Fever Status: Acute (2) Leukocytosis Status: Acute (3) UTI (urinary tract infection) Status: Acute (4) Acute renal failure Status: Acute (5) Generalized weakness Status: Acute (6) Hyperkalemia Status: Acute (7) Troponin level elevated Status: Acute (8) UTI (urinary tract infection) due to Enterococcus Status: Acute (9) UTI (urinary tract infection) due to Enterococcus Status: Acute (10) UTI due to Klebsiella species Status: Acute (11) UTI due to Klebsiella species Status: Acute
--- NOTE | 2017-08-18 22:27 | CP.PCM.PN ---
Subjective - Date & Time of Evaluation Date of Evaluation: 08/18/17 Time of Evaluation: 13:00 - Subjective Subjective: Pt seen and examined at bedside today Objective - Vital Signs/Intake and Output Vital Signs (last 24 hours): Temp Pulse Resp BP Pulse Ox 97.4 F L 97 H 20 102/70 93 L 08/18/17 15:00 08/18/17 15:00 08/18/17 15:00 08/18/17 15:00 08/18/17 15:00 Intake and Output: 08/18/17 08/19/17 18:59 06:59 Intake Total 570 Output Total 400 300 Balance -400 270 - Medications Medications: Current Medications Acetaminophen (Tylenol 325mg Tab) 650 mg PO Q4 PRN PRN Reason: Pain, moderate (4-7) Last Admin: 08/17/17 06:25 Dose: 650 mg Acetaminophen (Tylenol 325mg Tab) 650 mg PO Q6 PRN PRN Reason: FEVER ABOVE 101 OR [place]IM[place]O Ascorbic Acid (Vitamin C 500 Mg Tab) 500 mg PO DAILY [facility] Last Admin: 08/18/17 09:09 Dose: 500 mg Aspirin (Aspirin Chewable) 81 mg PO DAILY [facility] Last Admin: 08/18/17 09:08 Dose: 81 mg Clopidogrel Bisulfate (Plavix) 75 mg PO DAILY [facility] Last Admin: 08/18/17 09:08 Dose: 75 mg Epoetin Jacobo (Procrit) 10,000 unit IV TTS [facility] Last Admin: 08/17/17 10:48 Dose: 10,000 unit Famotidine (Pepcid) 20 mg PO DAILY [facility] Last Admin: 08/18/17 09:09 Dose: 20 mg Finasteride (Proscar) 5 mg PO DAILY [facility] Last Admin: 08/18/17 09:08 Dose: 5 mg Hydralazine HCl (Apresoline) 10 mg PO BID [facility] Vancomycin/Sodium Chloride (Vancomycin 1 Gm/Ns 200 Ml) 1 gm in 200 mls @ 133.333 mls/hr IVPB TTS [facility] Stop: 08/20/17 10:01 Last Admin: 08/17/17 12:28 Dose: 133.333 mls/hr Cefepime HCl (Maxipime Iv 1 Gm Premix) 1 gm in 50 mls @ 100 mls/hr IVPB Q12H [facility] Last Admin: 08/18/17 17:00 Dose: 100 mls/hr Metronidazole (Flagyl) 500 mg in 100 mls @ 100 mls/hr IVPB Q8 [facility] Last Admin: 08/18/17 21:11 Dose: 100 mls/hr Levothyroxine Sodium (Synthroid) 25 mcg PO DAILY@0630 [facility] Last Admin: 08/18/17 06:00 Dose: 25 mcg Megestrol Acetate (Megace) 400 mg PO DAILY [facility] Last Admin: 08/18/17 09:07 Dose: 400 mg Metoprolol Tartrate (Lopressor) 25 mg PO BID [facility] Last Admin: 07/30/17 18:16 Dose: Not Given Midodrine (Proamatine) 5 mg PO TID [facility] Last Admin: 08/18/17 17:00 Dose: 5 mg Multivitamins (Hexavitamin) 1 tab PO DAILY [facility] Last Admin: 08/18/17 09:08 Dose: 1 tab Mupirocin (Bactroban Ointment) 0 gm TOP BID [facility] Last Admin: 08/18/17 17:00 Dose: 1 applic Paricalcitol (Zemplar) 2 mcg IV TTS [facility] Last Admin: 08/17/17 10:46 Dose: 2 mcg Tamsulosin HCl (Flomax) 0.4 mg PO DAILY [facility] Last Admin: 08/18/17 09:08 Dose: 0.4 mg - Labs Labs: 08/17/17 07:06 08/17/17 07:06 PT 17.1 SECONDS (9.7-12.2) H 08/09/17 19:57 INR 1.5 08/09/17 19:57 APTT 36 SECONDS (21-34) H 08/09/17 19:57 Assessment and Plan (1) Fever Status: Acute (2) Leukocytosis Status: Acute (3) UTI (urinary tract infection) Status: Acute (4) Leg ulcer Status: Acute (5) Toxic metabolic encephalopathy Status: Acute (6) Pleural effusion Status: Acute
[2017-08-19] MEDS: metroNIDAZOLE IV 500 mg/100 ml 500 MG/100 ML BAG IVPB SCH ×3 (05:00→21:55)
[2017-08-19] MEDS: Levothyroxine 25 MCG TAB PO SCH (05:50)
[2017-08-19] MEDS: Cefepime IV 1 gm in Dextrose 1 GM/50 ML BAG IVPB SCH ×2 (06:10→18:55)
--- NOTE | 2017-08-19 09:42 | PN ---
DATE: LOCATION: [address] bed A. SUBJECTIVE: This is an 82 years old male with status post PEG insertion, seen and examined today, tolerating PEG feeding well. No reported active bleeding. The entire chart is reviewed and the case discussed with the staff in the floor at length. Today's labs showed hemoglobin 10.3, hematocrit 32.9 with BUN of 36, creatinine 2.6, but low glucose level of 72, low calcium of 7.8 with total bilirubin slightly elevated to 1.6 with low total protein of 6, low albumin 2.8. Today's chest x-ray is still pending and the patient had thoracocentesis guided by CAT scan yesterday with no immediate complications. PHYSICAL EXAMINATION: GENERAL: A 82 years old male, responds somewhat to verbal and painful stimuli, on BiPAP, tolerating PEG tube well so far. VITAL SIGNS: The patient is afebrile with pulse of 90, respiratory rate 20 to 22, blood pressure 106/66. HEENT: Showed pale dry oral mucous membrane. Nonicteric sclerae. LUNGS: Few scattered crepitation. Decreased air entry at bases. HEART: Positive S1 and S2 with increased rate. ABDOMEN: Soft. Bowel sounds are present. PEG tube is in place with clean dressing and clean wound. No residual bleeding or resistance. EXTREMITIES: Without significant clubbing, cyanosis or edema. NEUROLOGIC: No reported new neurological deficits, sensory or motor. IMPRESSION: 1. Malnutrition with hypoalbuminemia. 2. Failure to thrive. 3. Status post percutaneous endoscopic gastrostomy insertion. 4. Bilateral pleural effusion with pneumonia and respiratory insufficiency, with status post thoracocentesis. 5. The exacerbation of peptic ulcer disease. Acute renal failure. 6. Anemia secondary to above. SUGGESTION: 1. Continue current management. 2. Increase the rate of feeding as tolerated. 3. Guaiac all the stool daily x3. 4. Further recommendation to follow. Katia Pardo MD
[2017-08-19] MEDS: Megestrol Acetate 40 mg/ml Cup PO SCH (10:20)
[2017-08-19] MEDS: Multiple Vitamins Tab PO SCH (10:20)
--- NOTE | 2017-08-19 11:54 | CP.PCM.PN ---
Subjective - Date & Time of Evaluation Date of Evaluation: 08/19/17 Time of Evaluation: 09:00 - Subjective Subjective: the patient seen and examined More lethargic and short of breath Status post thoracentesis Patient placed on BiPAP Continue present treatment Objective - Vital Signs/Intake and Output Vital Signs (last 24 hours): Temp Pulse Resp BP Pulse Ox 97.9 F 98 H 20 105/66 96 08/19/17 00:00 08/19/17 00:00 08/19/17 00:00 08/19/17 00:00 08/19/17 00:00 Intake and Output: 08/19/17 08/19/17 06:59 18:59 Intake Total 1180 Output Total 400 Balance 780 - Medications Medications: Current Medications Acetaminophen (Tylenol 325mg Tab) 650 mg PO Q4 PRN PRN Reason: Pain, moderate (4-7) Last Admin: 08/17/17 06:25 Dose: 650 mg Acetaminophen (Tylenol 325mg Tab) 650 mg PO Q6 PRN PRN Reason: FEVER ABOVE 101 OR [place]IM[place] Albuterol/Ipratropium (Duoneb 3 Mg/0.5 Mg (3 Ml) Ud) 3 ml INH RQ6 DAWIT Ascorbic Acid (Vitamin C 500 Mg Tab) 500 mg PO DAILY [facility] Last Admin: 08/19/17 10:20 Dose: 500 mg Aspirin (Aspirin Chewable) 81 mg PO DAILY [facility] Last Admin: 08/19/17 10:20 Dose: 81 mg Clopidogrel Bisulfate (Plavix) 75 mg PO DAILY [facility] Last Admin: 08/19/17 10:20 Dose: 75 mg Epoetin Jacobo (Procrit) 10,000 unit IV TTS [facility] Last Admin: 08/17/17 10:48 Dose: 10,000 unit Famotidine (Pepcid) 20 mg PO DAILY [facility] Last Admin: 08/19/17 10:20 Dose: 20 mg Finasteride (Proscar) 5 mg PO DAILY [facility] Last Admin: 08/19/17 10:20 Dose: 5 mg Hydralazine HCl (Apresoline) 10 mg PO BID [facility] Vancomycin/Sodium Chloride (Vancomycin 1 Gm/Ns 200 Ml) 1 gm in 200 mls @ 133.333 mls/hr IVPB TTS [facility] Stop: 08/20/17 10:01 Last Admin: 08/17/17 12:28 Dose: 133.333 mls/hr Cefepime HCl (Maxipime Iv 1 Gm Premix) 1 gm in 50 mls @ 100 mls/hr IVPB Q12H [facility] Last Admin: 08/19/17 06:10 Dose: 100 mls/hr Metronidazole (Flagyl) 500 mg in 100 mls @ 100 mls/hr IVPB Q8 [facility] Last Admin: 08/19/17 05:00 Dose: 100 mls/hr Levothyroxine Sodium (Synthroid) 25 mcg PO DAILY@0630 [facility] Last Admin: 08/19/17 05:50 Dose: 25 mcg Megestrol Acetate (Megace) 400 mg PO DAILY [facility] Last Admin: 08/19/17 10:20 Dose: 400 mg Metoprolol Tartrate (Lopressor) 25 mg PO BID [facility] Last Admin: 07/30/17 18:16 Dose: Not Given Midodrine (Proamatine) 5 mg PO TID [facility] Last Admin: 08/19/17 10:20 Dose: 5 mg Multivitamins (Hexavitamin) 1 tab PO DAILY [facility] Last Admin: 08/19/17 10:20 Dose: 1 tab Mupirocin (Bactroban Ointment) 0 gm TOP BID [facility] Last Admin: 08/18/17 17:00 Dose: 1 applic Paricalcitol (Zemplar) 2 mcg IV TTS [facility] Last Admin: 08/17/17 10:46 Dose: 2 mcg Tamsulosin HCl (Flomax) 0.4 mg PO DAILY [facility] Last Admin: 08/19/17 10:20 Dose: 0.4 mg - Labs Labs: 08/17/17 07:06 08/17/17 07:06 PT 17.1 SECONDS (9.7-12.2) H 08/09/17 19:57 INR 1.5 08/09/17 19:57 APTT 36 SECONDS (21-34) H 08/09/17 19:57 Assessment and Plan (1) Dyspnea Status: Acute
--- NOTE | 2017-08-19 17:53 | PN ---
DATE: LOCATION: [facility], bed A. SUBJECTIVE: This is an 82 years old male seen in rounds without significant clinical changes, tolerating PEG feeding well. The entire chart is reviewed including, but not limited to the most recent lab and radiology study results, current and the previous medication list, current and the previous medical events. Case discussed with the staff at length. Most recent lab results show blood glucose level of 110. The rest of the lab results today is still pending. Patient appeared to be somewhat more alert with less episodes of shortness of breath. PHYSICAL EXAMINATION: GENERAL: An 82 years old male. VITAL SIGNS: Afebrile with pulse of 94, respiratory rate 20 to 22, blood pressure 110/64. HEENT: Showed pale, dry mucous membrane. Nonicteric sclerae. LUNGS: Few scattered crepitation. Decreased air entry at bases. HEART: Positive S1, S2 with increased rate. ABDOMEN: Soft, bowel sounds are present. PEG tube is in place without resistant bleeding or reported residual. EXTREMITIES: With evidence of lower extremities ulceration, covered with clean dressing. IMPRESSION: 1. Failure to thrive, malnutrition, hypoalbuminemia. 2. Status post percutaneous endoscopic gastrostomy insertion. 3. Recurrent episodes of urinary tract infection. 4. Evidence of toxic metabolic encephalopathy. 5. Acute renal insufficiency. 6. Pneumonia with pleural effusion. 7. Anemia, most likely secondary to above. SUGGESTIONS: 1. Continue current management. 2. Increase the rate of feeding as tolerated. 3. Repeat stool for occult blood. 4. Further recommendation to follow. Katia Pardo MD
--- NOTE | 2017-08-19 19:18 | CP.PCM.PN ---
Subjective - Date & Time of Evaluation Date of Evaluation: 08/19/17 Time of Evaluation: 19:17 - Subjective Subjective: pt is seen and examined, follow up consult is dictated #[id number] hd in am ,on bi[pap Objective - Vital Signs/Intake and Output Vital Signs (last 24 hours): Temp Pulse Resp BP Pulse Ox 97.3 F L 98 H 20 100/64 98 08/19/17 15:00 08/19/17 15:00 08/19/17 15:00 08/19/17 15:00 08/19/17 15:00 Intake and Output: 08/19/17 08/20/17 18:59 06:59 Intake Total 600 Output Total 100 Balance 500 - Medications Medications: Current Medications Acetaminophen (Tylenol 325mg Tab) 650 mg PO Q4 PRN PRN Reason: Pain, moderate (4-7) Last Admin: 08/17/17 06:25 Dose: 650 mg Acetaminophen (Tylenol 325mg Tab) 650 mg PO Q6 PRN PRN Reason: FEVER ABOVE 101 OR [place]CIM[place]O Albuterol/Ipratropium (Duoneb 3 Mg/0.5 Mg (3 Ml) Ud) 3 ml INH RQ6 DAWIT Ascorbic Acid (Vitamin C 500 Mg Tab) 500 mg PO DAILY [facility] Last Admin: 08/19/17 10:20 Dose: 500 mg Aspirin (Aspirin Chewable) 81 mg PO DAILY [facility] Last Admin: 08/19/17 10:20 Dose: 81 mg Clopidogrel Bisulfate (Plavix) 75 mg PO DAILY [facility] Last Admin: 08/19/17 10:20 Dose: 75 mg Epoetin Jacobo (Procrit) 10,000 unit IV TTS [facility] Last Admin: 08/17/17 10:48 Dose: 10,000 unit Famotidine (Pepcid) 20 mg PO DAILY [facility] Last Admin: 08/19/17 10:20 Dose: 20 mg Finasteride (Proscar) 5 mg PO DAILY [facility] Last Admin: 08/19/17 10:20 Dose: 5 mg Hydralazine HCl (Apresoline) 10 mg PO BID [facility] Vancomycin/Sodium Chloride (Vancomycin 1 Gm/Ns 200 Ml) 1 gm in 200 mls @ 133.333 mls/hr IVPB TTS [facility] Stop: 08/20/17 10:01 Last Admin: 08/17/17 12:28 Dose: 133.333 mls/hr Metronidazole (Flagyl) 500 mg in 100 mls @ 100 mls/hr IVPB Q8 [facility] Last Admin: 08/19/17 14:23 Dose: 100 mls/hr Levothyroxine Sodium (Synthroid) 25 mcg PO DAILY@0630 [facility] Last Admin: 08/19/17 05:50 Dose: 25 mcg Megestrol Acetate (Megace) 400 mg PO DAILY [facility] Last Admin: 08/19/17 10:20 Dose: 400 mg Metoprolol Tartrate (Lopressor) 25 mg PO BID [facility] Last Admin: 07/30/17 18:16 Dose: Not Given Midodrine (Proamatine) 5 mg PO TID [facility] Last Admin: 08/19/17 18:55 Dose: 5 mg Multivitamins (Hexavitamin) 1 tab PO DAILY [facility] Last Admin: 08/19/17 10:20 Dose: 1 tab Mupirocin (Bactroban Ointment) 0 gm TOP BID [facility] Last Admin: 08/19/17 18:55 Dose: 1 applic Paricalcitol (Zemplar) 2 mcg IV TTS [facility] Last Admin: 08/17/17 10:46 Dose: 2 mcg Tamsulosin HCl (Flomax) 0.4 mg PO DAILY [facility] Last Admin: 08/19/17 10:20 Dose: 0.4 mg - Labs Labs: 08/17/17 07:06 08/17/17 07:06 PT 17.1 SECONDS (9.7-12.2) H 08/09/17 19:57 INR 1.5 08/09/17 19:57 APTT 36 SECONDS (21-34) H 08/09/17 19:57
--- NOTE | 2017-08-19 23:40 | CP.PCM.PN ---
Subjective - Date & Time of Evaluation Date of Evaluation: 08/19/17 Time of Evaluation: 18:00 - Subjective Subjective: pt is seen and examined, weak, lethargic, pt is on symptomatic treatment on BIPAP, he is full CODE, arousable, response, i left lionel for his son to discuss the prognosis Objective - Vital Signs/Intake and Output Vital Signs (last 24 hours): Temp Pulse Resp BP Pulse Ox 97.3 F L 90 20 100/64 98 08/19/17 15:00 08/19/17 19:28 08/19/17 15:00 08/19/17 15:00 08/19/17 15:00 Intake and Output: 08/19/17 08/20/17 18:59 06:59 Intake Total 600 650 Output Total 100 400 Balance 500 250 - Medications Medications: Current Medications Acetaminophen (Tylenol 325mg Tab) 650 mg PO Q4 PRN PRN Reason: Pain, moderate (4-7) Last Admin: 08/17/17 06:25 Dose: 650 mg Acetaminophen (Tylenol 325mg Tab) 650 mg PO Q6 PRN PRN Reason: FEVER ABOVE 101 OR [place]IM[place] Albuterol/Ipratropium (Duoneb 3 Mg/0.5 Mg (3 Ml) Ud) 3 ml INH RQ6 DAWIT Ascorbic Acid (Vitamin C 500 Mg Tab) 500 mg PO DAILY [facility] Last Admin: 08/19/17 10:20 Dose: 500 mg Aspirin (Aspirin Chewable) 81 mg PO DAILY [facility] Last Admin: 08/19/17 10:20 Dose: 81 mg Clopidogrel Bisulfate (Plavix) 75 mg PO DAILY [facility] Last Admin: 08/19/17 10:20 Dose: 75 mg Epoetin Jacobo (Procrit) 10,000 unit IV TTS [facility] Last Admin: 08/17/17 10:48 Dose: 10,000 unit Famotidine (Pepcid) 20 mg PO DAILY [facility] Last Admin: 08/19/17 10:20 Dose: 20 mg Finasteride (Proscar) 5 mg PO DAILY [facility] Last Admin: 08/19/17 10:20 Dose: 5 mg Hydralazine HCl (Apresoline) 10 mg PO BID [facility] Vancomycin/Sodium Chloride (Vancomycin 1 Gm/Ns 200 Ml) 1 gm in 200 mls @ 133.333 mls/hr IVPB TTS [facility] Stop: 08/20/17 10:01 Last Admin: 08/17/17 12:28 Dose: 133.333 mls/hr Metronidazole (Flagyl) 500 mg in 100 mls @ 100 mls/hr IVPB Q8 [facility] Last Admin: 08/19/17 21:55 Dose: 100 mls/hr Levothyroxine Sodium (Synthroid) 25 mcg PO DAILY@0630 [facility] Last Admin: 08/19/17 05:50 Dose: 25 mcg Megestrol Acetate (Megace) 400 mg PO DAILY [facility] Last Admin: 08/19/17 10:20 Dose: 400 mg Metoprolol Tartrate (Lopressor) 25 mg PO BID [facility] Last Admin: 07/30/17 18:16 Dose: Not Given Midodrine (Proamatine) 5 mg PO TID [facility] Last Admin: 08/19/17 18:55 Dose: 5 mg Multivitamins (Hexavitamin) 1 tab PO DAILY [facility] Last Admin: 08/19/17 10:20 Dose: 1 tab Mupirocin (Bactroban Ointment) 0 gm TOP BID [facility] Last Admin: 08/19/17 18:55 Dose: 1 applic Paricalcitol (Zemplar) 2 mcg IV TTS [facility] Last Admin: 08/17/17 10:46 Dose: 2 mcg Tamsulosin HCl (Flomax) 0.4 mg PO DAILY [facility] Last Admin: 08/19/17 10:20 Dose: 0.4 mg - Labs Labs: 08/17/17 07:06 08/17/17 07:06 PT 17.1 SECONDS (9.7-12.2) H 08/09/17 19:57 INR 1.5 08/09/17 19:57 APTT 36 SECONDS (21-34) H 08/09/17 19:57 - Constitutional Appears: No Acute Distress - Head Exam Head Exam: ATRAUMATIC, NORMAL INSPECTION, NORMOCEPHALIC - Eye Exam Eye Exam: EOMI, Normal appearance, PERRL Pupil Exam: NORMAL ACCOMODATION, PERRL - Respiratory Exam Respiratory Exam: Decreased Breath Sounds, Rales - Cardiovascular Exam Cardiovascular Exam: REGULAR RHYTHM, +S1, +S2. absent: Murmur - GI/Abdominal Exam GI & Abdominal Exam: Soft, Normal Bowel Sounds. absent: Tenderness Assessment and Plan (1) Fever Status: Acute (2) Leukocytosis Status: Acute (3) UTI (urinary tract infection) Status: Acute (4) Leg ulcer Status: Acute (5) Toxic metabolic encephalopathy Status: Acute (6) Pleural effusion Status: Acute
--- NOTE | 2017-08-20 00:30 | PN ---
FOLLOWUP RENAL CONSULTATION The patient is located in room #357, bed A. REQUESTED BY: Dr. Daniel Coyle. REASON FOR FOLLOWUP: End-stage renal disease, continuous of hemodialysis. HISTORY OF PRESENT ILLNESS: Mr. Cunningham is an 82 years old elderly male with a past medical history significant for longstanding hypertension, coronary artery disease status post CABG, tophaceous gout, CHF, chronic kidney disease was recently admitted to halfway after fall and rhabdomyolysis and the patient was sent back to the hospital after 5 weeks on 07/24/2017 with low-grade fever and altered mental status and shortness of breath. The patient was found to have urosepsis and treated for UTI and hospital course complicated by code sepsis and worsening renal function and shock liver requiring, requiring transfusion and also initiation of the hemodialysis. The patient is on hemodialysis 3 times a week. The patient is not in distress, on BiPAP, status post PEG tube placement . Denies any complaints. PHYSICAL EXAMINATION VITAL SIGNS: As follows; blood pressure 100/64, pulse 98, respiration 20, temperature 97.3 and saturation 98%. Height 6 feet 3 inches and weight is 183 pounds. GENERAL: Mr. Cunningham is an 82 years old elderly male, moderately-built, moderately-nourished, not in distress. HEENT: Pupils are normal, reactive to light and accommodation. Conjunctivae are pink. Sclerae anicteric. Trachea is midline, on BiPAP. LUNGS: Symmetric on both sides. Bilateral breath sounds present. Basal crackles present. CARDIOVASCULAR SYSTEM: [place] at the fifth intercostal space, midclavicular line. S1, S2 audible. No murmur. No gallop. ABDOMEN: Normal in appearance, status post PEG tube placement. Abdomen is soft, tympanic. No guarding. No rigidity. No hepatosplenomegaly. CENTRAL NERVOUS SYSTEM: The patient is awake, following simple commands. EXTREMITIES: No cyanosis, no clubbing. The patient has 1+ edema in both upper and lower extremities. CURRENT MEDICATIONS: Include as follows; aspirin 81 mg daily, Bactroban ointment topical b.i.d., DuoNeb inhaler, Flagyl 500 mg IV q.8 hours, Flomax 0.4 mg daily, multivitamin 1 tablet daily, Megace 400 mg p.o. daily, Pepcid 20 mg p.o. daily, Plavix 75 mg p.o. daily, midodrine 5 mg p.o. t.i.d., Proscar 5 mg p.o. daily, Synthroid 25 mcg daily, Tylenol, vancomycin 1 g 3 times a week, vitamin C 500 mg p.o. daily and Zemplar 2 mcg 3 times a week. LABORATORY DATA: No new labs are available for today. As of 08/19/2017; Accu-Cheks 117, 110, 97 and 111. ASSESSMENT: In summary, Mr. Cunningham is an 82 years old elderly male with history of hypertension, coronary artery disease, status post coronary artery bypass graft, congestive heart failure, tophaceous gout, renal failure, was admitted with urosepsis, status post code sepsis and shock liver, anemia requiring initiation of hemodialysis 3 times a week, on BiPAP, status post right thoracentesis last week drained about 1.5 liters. 1. End-stage renal disease. Continue hemodialysis 3 times a week. 2. Anemia secondary to renal failure and sepsis. 3. Coronary artery disease. 4. Congestive heart failure. 5. Pneumonia. Continue hemodialysis 3 times a week. Overall prognosis is guarded. Thank you for allowing me to participate in your patient's care. Case discussed with Dr. Daniel Coyle in rounds and the patient is scheduled for hemodialysis in a.m. Hernan Peterson MD
[2017-08-20] MEDS: metroNIDAZOLE IV 500 mg/100 ml 500 MG/100 ML BAG IVPB SCH ×3 (05:14→22:01)
[2017-08-20] MEDS: Levothyroxine 25 MCG TAB PO SCH (06:30)
[2017-08-20] MEDS: Albuterol-Ipratrop 3 mg / 0.5 (3 ml) UD INH SCH ×3 (10:06→19:19)
[2017-08-20] MEDS: Megestrol Acetate 40 mg/ml Cup PO SCH (10:12)
[2017-08-20] MEDS: Multiple Vitamins Tab PO SCH (10:12)
[2017-08-20] MEDS: Epoetin Alfa 10,000 unit/ml Dialysis IV SCH ×2 (10:30→15:19)
[2017-08-20] MEDS: Vancomycin 1 gm/NS 200 ml 1 GM/200 ML BAG IVPB SCH (10:30)
[2017-08-20] MEDS: Paricalcitol 2 mcg/ml Inj IV SCH ×2 (10:30→15:20)
--- NOTE | 2017-08-20 15:43 | CP.PCM.PN ---
Subjective - Date & Time of Evaluation Date of Evaluation: 08/20/17 Time of Evaluation: 09:00 - Subjective Subjective: Patient seen and examined. Remains on BiPAP in respiratory distress Very lethargic Afebrile On antibiotics Objective - Vital Signs/Intake and Output Vital Signs (last 24 hours): Temp Pulse Resp BP Pulse Ox 98.2 F 104 H 21 92/51 L 96 08/20/17 14:35 08/20/17 14:35 08/20/17 14:30 08/20/17 15:20 08/20/17 14:35 Intake and Output: 08/20/17 08/20/17 06:59 18:59 Intake Total 650 1200 Output Total 400 150 Balance 250 1050 - Medications Medications: Current Medications Acetaminophen (Tylenol 325mg Tab) 650 mg PO Q4 PRN PRN Reason: Pain, moderate (4-7) Last Admin: 08/17/17 06:25 Dose: 650 mg Acetaminophen (Tylenol 325mg Tab) 650 mg PO Q6 PRN PRN Reason: FEVER ABOVE 101 OR NASCIMENTO Albuterol/Ipratropium (Duoneb 3 Mg/0.5 Mg (3 Ml) Ud) 3 ml INH RQ6 [facility] Last Admin: 08/20/17 13:33 Dose: 3 ml Ascorbic Acid (Vitamin C 500 Mg Tab) 500 mg PO DAILY [facility] Last Admin: 08/20/17 10:12 Dose: 500 mg Clopidogrel Bisulfate (Plavix) 75 mg PO DAILY [facility] Last Admin: 08/20/17 10:12 Dose: 75 mg Epoetin Jacobo (Procrit) 10,000 unit IV TTS [facility] Last Admin: 08/20/17 15:19 Dose: 10,000 unit Famotidine (Pepcid) 20 mg PO DAILY [facility] Last Admin: 08/20/17 10:12 Dose: 20 mg Finasteride (Proscar) 5 mg PO DAILY [facility] Last Admin: 08/20/17 10:13 Dose: 5 mg Hydralazine HCl (Apresoline) 10 mg PO BID [facility] Metronidazole (Flagyl) 500 mg in 100 mls @ 100 mls/hr IVPB Q8 [facility] Last Admin: 08/20/17 14:27 Dose: Not Given Levothyroxine Sodium (Synthroid) 25 mcg PO DAILY@0630 [facility] Last Admin: 08/20/17 06:30 Dose: 25 mcg Megestrol Acetate (Megace) 400 mg PO DAILY [facility] Last Admin: 08/20/17 10:12 Dose: 400 mg Metoprolol Tartrate (Lopressor) 25 mg PO BID [facility] Last Admin: 07/30/17 18:16 Dose: Not Given Midodrine (Proamatine) 5 mg PO TID [facility] Last Admin: 08/20/17 14:05 Dose: 5 mg Multivitamins (Hexavitamin) 1 tab PO DAILY [facility] Last Admin: 08/20/17 10:12 Dose: 1 tab Mupirocin (Bactroban Ointment) 0 gm TOP BID [facility] Last Admin: 08/20/17 10:15 Dose: 1 applic Paricalcitol (Zemplar) 2 mcg IV TTS [facility] Last Admin: 08/20/17 15:20 Dose: 2 mcg Tamsulosin HCl (Flomax) 0.4 mg PO DAILY [facility] Last Admin: 08/20/17 10:12 Dose: 0.4 mg - Labs Labs: 08/17/17 07:06 08/17/17 07:06 PT 17.1 SECONDS (9.7-12.2) H 08/09/17 19:57 INR 1.5 08/09/17 19:57 APTT 36 SECONDS (21-34) H 08/09/17 19:57 - Head Exam Head Exam: ATRAUMATIC, NORMOCEPHALIC - ENT Exam ENT Exam: Mucous Membranes Dry - Neck Exam Neck Exam: Normal Inspection - Respiratory Exam Respiratory Exam: Decreased Breath Sounds - Cardiovascular Exam Cardiovascular Exam: REGULAR RHYTHM - GI/Abdominal Exam GI & Abdominal Exam: Soft, Normal Bowel Sounds Assessment and Plan (1) Respiratory failure Assessment & Plan: Respiratory failure requiring BiPAP Status post thoracentesis Follow-up chest x-ray Continue antibiotics and bronchodilators Consider DNR/DNI Prognosis poor Status: Acute (2) Pleural effusion Status: Acute (3) Pneumonia Status: Acute (4) Dyspnea Status: Acute
--- NOTE | 2017-08-20 18:15 | PN ---
LOCATION: [facility], bed A. SUBJECTIVE: This is an 82-year-old male with status post PEG insertion seen in rounds early today, so far tolerating PEG feeding well without any reported residual bleeding or resistance. The entire chart is reviewed including, but not limited to the most recent lab and radiology study results, current and the previous medication list, current and the previous medical events. Case discussed with the staff at length. Case is to be discussed with Dr. Coyle. Today's lab showed blood glucose level of 107. PHYSICAL EXAMINATION: GENERAL: An 82-year-old male. VITAL SIGNS: Afebrile with pulse of 94, respiratory rate 20 to 22, blood pressure 106/66. HEENT: Showed pale, dry oral mucoid membrane. Nonicteric sclerae. LUNGS: Few scattered crepitation. Decreased air entry at bases. HEART: Positive S1 and S2 with increased rate. ABDOMEN: Soft. PEG tube is in place with clean wound covered with clean dressing. Bowel sounds are present. EXTREMITIES: With lower extremities mild edematous changes. No clubbing or cyanosis. NEUROLOGIC: No new reported neurological deficits, sensory or motor. IMPRESSION: 1. Failure to thrive with malnutrition and hypoalbuminemia. 2. Status post percutaneous endoscopic gastrostomy insertion. 3. End-stage renal disease, on hemodialysis. 4. Coronary artery disease with congestive heart failure. 5. Anemia, most likely secondary to above. 6. Recurrent episode of urinary tract infection. 7. Pneumonia with pleural effusion. SUGGESTIONS: 1. Continue current management. 2. Increase the rate of feeding as tolerated in coordination with the nephrology business analyst consultant on the case. 3. Guaiac all the stool daily x3. Katia Pardo MD cc: Katia Pardo MD
--- NOTE | 2017-08-20 18:41 | CP.PCM.PN ---
Subjective - Date & Time of Evaluation Date of Evaluation: 08/20/17 Time of Evaluation: 18:40 - Subjective Subjective: pt is seen and examined, s/p hd this after noon, uf 1. 3 lit follow up consult is dictated #[id number] Objective - Vital Signs/Intake and Output Vital Signs (last 24 hours): Temp Pulse Resp BP Pulse Ox 98 F 99 H 18 89/52 L 99 08/20/17 17:35 08/20/17 17:35 08/20/17 17:35 08/20/17 17:35 08/20/17 17:35 Intake and Output: 08/20/17 08/20/17 06:59 18:59 Intake Total 650 1200 Output Total 400 150 Balance 250 1050 - Medications Medications: Current Medications Acetaminophen (Tylenol 325mg Tab) 650 mg PO Q4 PRN PRN Reason: Pain, moderate (4-7) Last Admin: 08/17/17 06:25 Dose: 650 mg Acetaminophen (Tylenol 325mg Tab) 650 mg PO Q6 PRN PRN Reason: FEVER ABOVE 101 OR NASCIMENTO Albuterol/Ipratropium (Duoneb 3 Mg/0.5 Mg (3 Ml) Ud) 3 ml INH RQ6 [facility] Last Admin: 08/20/17 13:33 Dose: 3 ml Ascorbic Acid (Vitamin C 500 Mg Tab) 500 mg PO DAILY [facility] Last Admin: 08/20/17 10:12 Dose: 500 mg Clopidogrel Bisulfate (Plavix) 75 mg PO DAILY [facility] Last Admin: 08/20/17 10:12 Dose: 75 mg Epoetin Jacobo (Procrit) 10,000 unit IV TTS [facility] Last Admin: 08/20/17 15:19 Dose: 10,000 unit Famotidine (Pepcid) 20 mg PO DAILY [facility] Last Admin: 08/20/17 10:12 Dose: 20 mg Finasteride (Proscar) 5 mg PO DAILY [facility] Last Admin: 08/20/17 10:13 Dose: 5 mg Hydralazine HCl (Apresoline) 10 mg PO BID [facility] Metronidazole (Flagyl) 500 mg in 100 mls @ 100 mls/hr IVPB Q8 [facility] Last Admin: 08/20/17 14:27 Dose: Not Given Vancomycin HCl 1 gm/ Sodium (Chloride) 250 mls @ 166.7 mls/hr IVPB TTS [facility] Levothyroxine Sodium (Synthroid) 25 mcg PO DAILY@0630 [facility] Last Admin: 08/20/17 06:30 Dose: 25 mcg Megestrol Acetate (Megace) 400 mg PO DAILY [facility] Last Admin: 08/20/17 10:12 Dose: 400 mg Metoprolol Tartrate (Lopressor) 25 mg PO BID [facility] Last Admin: 07/30/17 18:16 Dose: Not Given Midodrine (Proamatine) 5 mg PO TID [facility] Last Admin: 08/20/17 14:05 Dose: 5 mg Multivitamins (Hexavitamin) 1 tab PO DAILY [facility] Last Admin: 08/20/17 10:12 Dose: 1 tab Mupirocin (Bactroban Ointment) 0 gm TOP BID [facility] Last Admin: 08/20/17 10:15 Dose: 1 applic Paricalcitol (Zemplar) 2 mcg IV TTS [facility] Last Admin: 08/20/17 15:20 Dose: 2 mcg Tamsulosin HCl (Flomax) 0.4 mg PO DAILY [facility] Last Admin: 08/20/17 10:12 Dose: 0.4 mg - Labs Labs: 08/17/17 07:06 08/17/17 07:06 PT 17.1 SECONDS (9.7-12.2) H 08/09/17 19:57 INR 1.5 08/09/17 19:57 APTT 36 SECONDS (21-34) H 08/09/17 19:57
--- NOTE | 2017-08-20 22:46 | CP.PCM.PN ---
Subjective - Date & Time of Evaluation Date of Evaluation: 08/20/17 Time of Evaluation: 10:10 - Subjective Subjective: Pt seen and examined at bedside Objective - Vital Signs/Intake and Output Vital Signs (last 24 hours): Temp Pulse Resp BP Pulse Ox 98 F 88 18 89/52 L 99 08/20/17 17:35 08/20/17 22:17 08/20/17 17:35 08/20/17 17:35 08/20/17 17:35 Intake and Output: 08/20/17 08/21/17 18:59 06:59 Intake Total 1200 Output Total 150 Balance 1050 - Medications Medications: Current Medications Acetaminophen (Tylenol 325mg Tab) 650 mg PO Q4 PRN PRN Reason: Pain, moderate (4-7) Last Admin: 08/17/17 06:25 Dose: 650 mg Acetaminophen (Tylenol 325mg Tab) 650 mg PO Q6 PRN PRN Reason: FEVER ABOVE 101 OR NASCIMENTO Albuterol/Ipratropium (Duoneb 3 Mg/0.5 Mg (3 Ml) Ud) 3 ml INH RQ6 [facility] Last Admin: 08/20/17 19:19 Dose: 3 ml Ascorbic Acid (Vitamin C 500 Mg Tab) 500 mg PO DAILY [facility] Last Admin: 08/20/17 10:12 Dose: 500 mg Clopidogrel Bisulfate (Plavix) 75 mg PO DAILY [facility] Last Admin: 08/20/17 10:12 Dose: 75 mg Epoetin Jacobo (Procrit) 10,000 unit IV TTS [facility] Last Admin: 08/20/17 15:19 Dose: 10,000 unit Famotidine (Pepcid) 20 mg PO DAILY [facility] Last Admin: 08/20/17 10:12 Dose: 20 mg Finasteride (Proscar) 5 mg PO DAILY [facility] Last Admin: 08/20/17 10:13 Dose: 5 mg Hydralazine HCl (Apresoline) 10 mg PO BID [facility] Metronidazole (Flagyl) 500 mg in 100 mls @ 100 mls/hr IVPB Q8 [facility] Last Admin: 08/20/17 22:01 Dose: 100 mls/hr Vancomycin HCl 1 gm/ Sodium (Chloride) 250 mls @ 166.7 mls/hr IVPB TTS [facility] Levothyroxine Sodium (Synthroid) 25 mcg PO DAILY@0630 [facility] Last Admin: 08/20/17 06:30 Dose: 25 mcg Megestrol Acetate (Megace) 400 mg PO DAILY [facility] Last Admin: 08/20/17 10:12 Dose: 400 mg Metoprolol Tartrate (Lopressor) 25 mg PO BID [facility] Last Admin: 07/30/17 18:16 Dose: Not Given Midodrine (Proamatine) 5 mg PO TID [facility] Last Admin: 08/20/17 18:50 Dose: 5 mg Multivitamins (Hexavitamin) 1 tab PO DAILY [facility] Last Admin: 08/20/17 10:12 Dose: 1 tab Mupirocin (Bactroban Ointment) 0 gm TOP BID [facility] Last Admin: 08/20/17 18:53 Dose: 1 applic Paricalcitol (Zemplar) 2 mcg IV TTS [facility] Last Admin: 08/20/17 15:20 Dose: 2 mcg Tamsulosin HCl (Flomax) 0.4 mg PO DAILY [facility] Last Admin: 08/20/17 10:12 Dose: 0.4 mg - Labs Labs: 08/17/17 07:06 08/17/17 07:06 PT 17.1 SECONDS (9.7-12.2) H 08/09/17 19:57 INR 1.5 08/09/17 19:57 APTT 36 SECONDS (21-34) H 08/09/17 19:57 - Constitutional Appears: No Acute Distress - Head Exam Head Exam: ATRAUMATIC, NORMAL INSPECTION, NORMOCEPHALIC - Eye Exam Eye Exam: EOMI, Normal appearance, PERRL Pupil Exam: NORMAL ACCOMODATION, PERRL - Respiratory Exam Respiratory Exam: Decreased Breath Sounds, Rales, Rhonchi - Cardiovascular Exam Cardiovascular Exam: REGULAR RHYTHM, +S1, +S2. absent: Murmur - GI/Abdominal Exam GI & Abdominal Exam: Soft, Normal Bowel Sounds. absent: Tenderness Assessment and Plan (1) Fever Status: Acute (2) Leukocytosis Status: Acute (3) UTI (urinary tract infection) Status: Acute (4) Leg ulcer Status: Acute (5) Toxic metabolic encephalopathy Status: Acute (6) Pleural effusion Status: Acute
[2017-08-21] MEDS: Albuterol-Ipratrop 3 mg / 0.5 (3 ml) UD INH SCH ×3 (01:24→13:19)
--- NOTE | 2017-08-21 02:56 | PN ---
FOLLOWUP RENAL CONSULTATION The patient is located in room #357, bed A. REQUESTED BY: Dr. Daniel Coyle. REASON FOR FOLLOWUP: End-stage renal disease for continuation of hemodialysis. HISTORY OF PRESENT ILLNESS: Mr. Cunningham is an 82 years old elderly male with a past medical history significant for longstanding hypertension, coronary artery disease, status post CABG, CHF, anemia, renal failure was admitted with worsening renal function, shortness of breath and altered mental status, found to have urosepsis, status post code sepsis and worsening LFTs and worsening renal function, requiring initiation of the hemodialysis. The patient is not in acute distress, on BiPAP machine, following simple commands. Status post hemodialysis today, had ultrafiltration about 1 liter, not in distress. PHYSICAL EXAMINATION VITAL SIGNS: As follows; blood pressure 109/84, pulse 99, respirations 18, temperature 98. Height 6 feet 3 inches and weight is 183 pounds. GENERAL: Mr. Cunningham is an 82 years old elderly male, moderately built, moderately nourished, not in distress, on BiPAP machine. HEENT: Pupils normal, reactive to light and accommodation. Conjunctivae pink. Sclerae anicteric. Trachea is midline. LUNGS: Symmetric on both sides. Bilateral breath sounds present. Occasional basal crackles present. CARDIOVASCULAR SYSTEM: [place] at the fifth intercostal space, midclavicular line. S1, S2 audible. No murmur or gallop. The patient has midsternal scar present from the previous CABG. ABDOMEN: Soft, tympanic. No guarding. No rigidity. No hepatosplenomegaly, status post PEG tube placement. CENTRAL NERVOUS SYSTEM: The patient is awake, following simple commands on BiPAP. Cranial nerves II through XII grossly intact. Sensory and motor system is within normal limits. EXTREMITIES: No cyanosis, no clubbing. The patient has 1 to 2+ edema in both upper and lower extremities. CURRENT MEDICATIONS: Include as follows; Bactroban ointment topical b.i.d., DuoNeb inhaler, Flagyl 500 mg q.8 hours, Flomax 0.4 mg p.o. daily, multivitamin 1 tablet daily, Megace 400 mg p.o. daily, Pepcid 20 mg daily, Plavix 75 mg p.o. daily, midodrine 5 mg p.o. t.i.d., Proscar 5 mg p.o. daily, Epogen 10,000 units 3 times a week, Synthroid 25 mcg p.o. daily, Tylenol, vancomycin 1 g 3 times a week, vitamin C 500 mg p.o. daily and Zemplar 2 mcg 3 times a week. No new labs are available. Accu-Cheks 123, 109, 107 and 115. ASSESSMENT: In summary, Mr. Cunningham is an 82 years old elderly male with history of hypertension, coronary artery disease, status post coronary artery bypass graft, gout, congestive heart failure, renal failure, status post code sepsis, status post shock liver, anemia, status post transfusion on hemodialysis 3 times a week. 1. End-stage renal disease. Continue hemodialysis 3 times a week Saturday, , Saturday. 2. Congestive heart failure. 3. Pneumonia. 4. Coronary artery disease. 5. Hypertension. Blood pressure is on the borderline, off hydralazine and off metoprolol. Continue hemodialysis 3 times a week as tolerated. Overall prognosis is guarded. Thank you for allowing me to participate in your patient's care. Continue antibiotics as per ID recommendations. Hernan Peterson MD
[2017-08-21] MEDS: metroNIDAZOLE IV 500 mg/100 ml 500 MG/100 ML BAG IVPB SCH ×3 (05:02→21:31)
[2017-08-21] MEDS: Levothyroxine 25 MCG TAB PO SCH (05:30)
--- NOTE | 2017-08-21 09:22 | CP.PCM.CON ---
History of Present Illness - History of Present Illness History of Present Illness: Palliative consult requested for goals of care discussion Patient is a 82 [facility] AA[facility]. At base line, patient is forgetful. The CT head on admission was negative for intracranial bleeding. Patient was found to have pleural effusion and thoracentesis was performed on 08/16/17. On admission WBC was 13.0, and after IV antibiotics for detected UTI, WBC dropped to 8.4. Patient remains very weak and on CPAP for respiratory support. PMH: HTN, CKD with HD, dementia Soc. Hx: [facility], Fam. Hx: renal disease runs in family ( both parents) Review of Systems - Review of Systems All systems: reviewed and no additional remarkable complaints except Review of Systems: ROS unobtainable due to lethargy. per nursing, no over night events. Past Patient History - Past Medical History & Family History Past Medical History?: Yes - Past Social History Smoking Status: Former Smoker - CARDIAC Hx Hypertension: Yes - PULMONARY Hx Respiratory Disorders: No - NEUROLOGICAL Hx Neurological Disorder: No - HEENT Hx HEENT Problems: No - RENAL Other/Comment: Chronic Kidney Disease. Retention of Urine - ENDOCRINE/METABOLIC Hx Diabetes Mellitus Type 2: Yes - HEMATOLOGICAL/ONCOLOGICAL Hx Blood Disorders: No - INTEGUMENTARY Other/Comment: Pressure Ulcer - MUSCULOSKELETAL/RHEUMATOLOGICAL Hx Arthritis: Yes (OA, Gout) - GASTROINTESTINAL Hx Gastrointestinal Disorders: Yes Hx Gastritis: Yes - GENITOURINARY/GYNECOLOGICAL Hx Genitourinary Disorders: Yes Other/Comment: Obstructive and Reflux Uropathy - PSYCHIATRIC Hx Substance Use: No - SURGICAL HISTORY Hx Surgeries: Yes Other/Comment: "Quadruple bypass" - ANESTHESIA Hx Anesthesia: Yes Hx Anesthesia Reactions: No Hx Malignant Hyperthermia: No Meds Allergies/Adverse Reactions: Allergies Allergy/AdvReac Type Severity Reaction Status Date / Time No Known Allergies Allergy Verified 05/27/17 05:37 - Medications Medications: Current Medications Acetaminophen (Tylenol 325mg Tab) 650 mg PO Q4 PRN PRN Reason: Pain, moderate (4-7) Last Admin: 08/17/17 06:25 Dose: 650 mg Acetaminophen (Tylenol 325mg Tab) 650 mg PO Q6 PRN PRN Reason: FEVER ABOVE 101 OR [place] Albuterol/Ipratropium (Duoneb 3 Mg/0.5 Mg (3 Ml) Ud) 3 ml INH RQ6 [facility] Last Admin: 08/21/17 07:30 Dose: 3 ml Ascorbic Acid (Vitamin C 500 Mg Tab) 500 mg PO DAILY [facility] Last Admin: 08/20/17 10:12 Dose: 500 mg Clopidogrel Bisulfate (Plavix) 75 mg PO DAILY [facility] Last Admin: 08/20/17 10:12 Dose: 75 mg Epoetin Jacobo (Procrit) 10,000 unit IV TTS [facility] Last Admin: 08/20/17 15:19 Dose: 10,000 unit Famotidine (Pepcid) 20 mg PO DAILY [facility] Last Admin: 08/20/17 10:12 Dose: 20 mg Finasteride (Proscar) 5 mg PO DAILY [facility] Last Admin: 08/20/17 10:13 Dose: 5 mg Hydralazine HCl (Apresoline) 10 mg PO BID [facility] Metronidazole (Flagyl) 500 mg in 100 mls @ 100 mls/hr IVPB Q8 [facility] Last Admin: 08/21/17 05:02 Dose: 100 mls/hr Vancomycin HCl 1 gm/ Sodium (Chloride) 250 mls @ 166.7 mls/hr IVPB TTS [facility] Levothyroxine Sodium (Synthroid) 25 mcg PO DAILY@0630 [facility] Last Admin: 08/21/17 05:30 Dose: 25 mcg Megestrol Acetate (Megace) 400 mg PO DAILY [facility] Last Admin: 08/20/17 10:12 Dose: 400 mg Metoprolol Tartrate (Lopressor) 25 mg PO BID [facility] Last Admin: 07/30/17 18:16 Dose: Not Given Midodrine (Proamatine) 5 mg PO TID [facility] Last Admin: 08/20/17 18:50 Dose: 5 mg Multivitamins (Hexavitamin) 1 tab PO DAILY [facility] Last Admin: 08/20/17 10:12 Dose: 1 tab Mupirocin (Bactroban Ointment) 0 gm TOP BID [facility] Last Admin: 08/20/17 18:53 Dose: 1 applic Paricalcitol (Zemplar) 2 mcg IV TTS [facility] Last Admin: 08/20/17 15:20 Dose: 2 mcg Tamsulosin HCl (Flomax) 0.4 mg PO DAILY [facility] Last Admin: 08/20/17 10:12 Dose: 0.4 mg Physical Exam - Constitutional Appears: Chronically Ill - Head Exam Head Exam: ATRAUMATIC, NORMAL INSPECTION, NORMOCEPHALIC - Eye Exam Eye Exam: EOMI, Normal appearance, PERRL Pupil Exam: NORMAL ACCOMODATION, PERRL - ENT Exam ENT Exam: Normal Exam - Neck Exam Neck exam: Positive for: Normal Inspection - Respiratory Exam Respiratory Exam: Decreased Breath Sounds, Respiratory Distress - Cardiovascular Exam Cardiovascular Exam: Tachycardia, REGULAR RHYTHM - GI/Abdominal Exam GI & Abdominal Exam: Normal Bowel Sounds, Soft Additional comments: PEG - Rectal Exam Rectal Exam: Deferred - Exam Exam: NORMAL INSPECTION - Extremities Exam Extremities exam: Positive for: pedal edema - Back Exam Back exam: NORMAL INSPECTION - Neurological Exam Neurological exam: Alert, Altered - Psychiatric Exam Psychiatric exam: Flat Affect - Skin Skin Exam: Normal Color, Warm Results - Vital Signs Recent Vital Signs: Last Vital Signs Temp 97.5 F L 08/21/17 08:00 Pulse 110 H 08/21/17 08:00 Resp 20 08/21/17 08:00 BP 105/61 08/21/17 08:00 Pulse Ox 99 08/21/17 08:00 - Labs Result Diagrams: 08/17/17 07:06 08/17/17 07:06 Labs: Laboratory Results - last 24 hr 08/20/17 08/20/17 08/20/17 11:41 16:00 21:30 POC Glucose (mg/dL) 107 115 H 112 H 08/21/17 00:14 POC Glucose (mg/dL) 113 H Assessment & Plan - Assessment and Plan (Free Text) Assessment: Palliative consult Code status Full Code, no advance directive/ Living will on chart. Patient seen and examined yesterday around 1 pm, and again around 5 pm , after phone conversation with his son Shelia. I reviewed medical records and all diagnostic studies. Patient is lethargic with CPAP on, not responding to verbal stimuli. Responds to deep pressure. Patient is post HD. patient looks chronically ill. Per son Janette, it is patient's " normal " condition on the HD days. Skin is dry with poor skin turgor. Breath sounds diminished. Bowel sounds normal. PEG in place. Mild pedal edema, limited active ROM. BP 103/67, HR 99, afebrile. I tried to awake patient by gentle shaking and calling by name, but he remained lethargic with CPAP on. Discussed goals of care with his son Shelia over the phone. Requested family meeting. Shelia said he needed to check with his mother her availability. I elicited his understanding of his father's condition. Shelia said that patient has been sick for a long time and his current health status has become his norm. I questioned his expectations in case condition gets worse and corrected his knowledge regarding slow decline seen in chronic diseases. poornima was very clear stating that him and his family would want all measures including aggressive measures to be applied to support his father's life. If patient's respiratory status gets worse, Poornima would want assistance of MV if it becomes neccassary. He feels that decisions regarding care needs to be made one step at the time based on his father's condition. I shared this with Julianna GTZ. Impression * This is chronically ill patient with acute respiratory distress on Bi Pap * Patient is very lethargic and unable to advocate for him self * Patient's wishes for the end of life care are not known * Family ( son Shelia in this case) requests all mesurs to be applied to support patient's life including aggressive measures. Shelia shares his family' s opinion Suggestions * Apply all measures to support life * Respiratory support * Promote skin integrity * Oral hygiene * PEG care I will fallow up with family for further goals of care discussions.
[2017-08-21] MEDS: Multiple Vitamins Tab PO SCH (10:47)
[2017-08-21] MEDS: Megestrol Acetate 40 mg/ml Cup PO SCH (10:47)
--- NOTE | 2017-08-21 11:29 | PN ---
DATE: LOCATION: [facility], bed A. SUBJECTIVE: This is an 82 years old male, post PEG insertion, seen and examined in rounds, tolerating PEG feeding well, no reported bleeding residual or resistant form the PEG tube. The entire chart is reviewed including, but not limited to the most recent lab and radiology study results, current and the previous medication list, current and the previous medical events. Today's lab showed blood glucose level of 130 and the case discussed with the staff at length. PHYSICAL EXAMINATION GENERAL: An 82 years old male, somewhat nonverbal, but somewhat responding to verbal stimuli. VITAL SIGNS: The patient is afebrile with pulse of 102, respiratory rate 20 to 22 with blood pressure of 108/64. HEENT: Showed pale, dry oral mucous membrane, nonicteric sclerae. LUNGS: Few scattered crepitation. Decreased air entry at bases. HEART: Positive S1 and S2. ABDOMEN: Soft. Bowel sounds are present. No mass or organomegaly. No rebound tenderness or guarding. PEG tube is in place. EXTREMITIES: Without significant clubbing, cyanosis or edema. NEUROLOGIC: No reported new neurological deficits, sensory or motor. It has to be mentioned that the patient is still on CPAP for his respiratory insufficiency. The patient is still also on hemodialysis due to his chronic renal failure. IMPRESSION: 1. Malnutrition with hypoalbuminemia, failure to thrive with status post percutaneous endoscopic gastrostomy insertion. 2. Chronic renal failure, on hemodialysis. 3. Chronic obstructive pulmonary disease with pneumonia and pleural effusion with status post thoracentesis by recent history. 4. Coronary artery disease with congestive heart failure. 5. Recurrent episode of urinary tract infection, still on antibiotic. SUGGESTIONS: 1. Continue current management. 2. Adjust rate of feeding, 6 hours on and 2 hours off. 3. Antireflux measure. 4. Further recommendation to follow. Katia Pardo MD
--- NOTE | 2017-08-21 12:30 | CP.PCM.PN ---
Subjective - Date & Time of Evaluation Date of Evaluation: 08/21/17 Time of Evaluation: 12:30 - Subjective Subjective: pt is seen and examined, follow up consult is dictated #[id number] Objective - Vital Signs/Intake and Output Vital Signs (last 24 hours): Temp Pulse Resp BP Pulse Ox 97.5 F L 110 H 20 105/61 99 08/21/17 08:00 08/21/17 08:00 08/21/17 08:00 08/21/17 08:00 08/21/17 08:00 Intake and Output: 08/21/17 08/21/17 06:59 18:59 Intake Total 1100 Output Total 150 Balance 950 - Medications Medications: Current Medications Acetaminophen (Tylenol 325mg Tab) 650 mg PO Q4 PRN PRN Reason: Pain, moderate (4-7) Last Admin: 08/17/17 06:25 Dose: 650 mg Acetaminophen (Tylenol 325mg Tab) 650 mg PO Q6 PRN PRN Reason: FEVER ABOVE 101 OR [place] Albuterol/Ipratropium (Duoneb 3 Mg/0.5 Mg (3 Ml) Ud) 3 ml INH RQ6 [facility] Last Admin: 08/21/17 07:30 Dose: 3 ml Ascorbic Acid (Vitamin C 500 Mg Tab) 500 mg PO DAILY [facility] Last Admin: 08/21/17 10:47 Dose: 500 mg Clopidogrel Bisulfate (Plavix) 75 mg PO DAILY [facility] Last Admin: 08/21/17 10:48 Dose: 75 mg Epoetin Jacobo (Procrit) 10,000 unit IV TTS [facility] Last Admin: 08/20/17 15:19 Dose: 10,000 unit Famotidine (Pepcid) 20 mg PO DAILY [facility] Last Admin: 08/21/17 10:47 Dose: 20 mg Finasteride (Proscar) 5 mg PO DAILY [facility] Last Admin: 08/21/17 10:48 Dose: 5 mg Hydralazine HCl (Apresoline) 10 mg PO BID [facility] Metronidazole (Flagyl) 500 mg in 100 mls @ 100 mls/hr IVPB Q8 [facility] Last Admin: 08/21/17 05:02 Dose: 100 mls/hr Vancomycin HCl 1 gm/ Sodium (Chloride) 250 mls @ 166.7 mls/hr IVPB TTS [facility] Levothyroxine Sodium (Synthroid) 25 mcg PO DAILY@0630 [facility] Last Admin: 08/21/17 05:30 Dose: 25 mcg Megestrol Acetate (Megace) 400 mg PO DAILY [facility] Last Admin: 08/21/17 10:47 Dose: 400 mg Metoprolol Tartrate (Lopressor) 25 mg PO BID [facility] Last Admin: 07/30/17 18:16 Dose: Not Given Midodrine (Proamatine) 5 mg PO TID [facility] Last Admin: 08/21/17 10:48 Dose: 5 mg Multivitamins (Hexavitamin) 1 tab PO DAILY [facility] Last Admin: 08/21/17 10:47 Dose: 1 tab Mupirocin (Bactroban Ointment) 0 gm TOP BID [facility] Last Admin: 08/21/17 10:50 Dose: 1 applic Paricalcitol (Zemplar) 2 mcg IV TTS [facility] Last Admin: 08/20/17 15:20 Dose: 2 mcg Tamsulosin HCl (Flomax) 0.4 mg PO DAILY [facility] Last Admin: 08/21/17 10:48 Dose: 0.4 mg - Labs Labs: 08/17/17 07:06 08/17/17 07:06 PT 17.1 SECONDS (9.7-12.2) H 08/09/17 19:57 INR 1.5 08/09/17 19:57 APTT 36 SECONDS (21-34) H 08/09/17 19:57
--- NOTE | 2017-08-21 14:03 | CP.PCM.PN ---
Subjective - Date & Time of Evaluation Date of Evaluation: 08/21/17 Time of Evaluation: 12:00 - Subjective Subjective: Remains lethargic, nonverbal Objective - Vital Signs/Intake and Output Vital Signs (last 24 hours): Temp Pulse Resp BP Pulse Ox 97.5 F L 110 H 20 105/61 99 08/21/17 08:00 08/21/17 08:00 08/21/17 08:00 08/21/17 08:00 08/21/17 08:00 Intake and Output: 08/21/17 08/21/17 06:59 18:59 Intake Total 1100 Output Total 150 Balance 950 - Medications Medications: Current Medications Acetaminophen (Tylenol 325mg Tab) 650 mg PO Q4 PRN PRN Reason: Pain, moderate (4-7) Last Admin: 08/17/17 06:25 Dose: 650 mg Acetaminophen (Tylenol 325mg Tab) 650 mg PO Q6 PRN PRN Reason: FEVER ABOVE 101 OR [place] Albuterol/Ipratropium (Duoneb 3 Mg/0.5 Mg (3 Ml) Ud) 3 ml INH RQ6 [facility] Last Admin: 08/21/17 13:19 Dose: 3 ml Ascorbic Acid (Vitamin C 500 Mg Tab) 500 mg PO DAILY [facility] Last Admin: 08/21/17 10:47 Dose: 500 mg Clopidogrel Bisulfate (Plavix) 75 mg PO DAILY [facility] Last Admin: 08/21/17 10:48 Dose: 75 mg Epoetin Jacobo (Procrit) 10,000 unit IV TTS [facility] Last Admin: 08/20/17 15:19 Dose: 10,000 unit Famotidine (Pepcid) 20 mg PO DAILY [facility] Last Admin: 08/21/17 10:47 Dose: 20 mg Finasteride (Proscar) 5 mg PO DAILY [facility] Last Admin: 08/21/17 10:48 Dose: 5 mg Hydralazine HCl (Apresoline) 10 mg PO BID [facility] Metronidazole (Flagyl) 500 mg in 100 mls @ 100 mls/hr IVPB Q8 [facility] Last Admin: 08/21/17 05:02 Dose: 100 mls/hr Vancomycin HCl 1 gm/ Sodium (Chloride) 250 mls @ 166.7 mls/hr IVPB TTS [facility] Levothyroxine Sodium (Synthroid) 25 mcg PO DAILY@0630 [facility] Last Admin: 08/21/17 05:30 Dose: 25 mcg Megestrol Acetate (Megace) 400 mg PO DAILY [facility] Last Admin: 08/21/17 10:47 Dose: 400 mg Metoprolol Tartrate (Lopressor) 25 mg PO BID [facility] Last Admin: 07/30/17 18:16 Dose: Not Given Midodrine (Proamatine) 5 mg PO TID [facility] Last Admin: 08/21/17 10:48 Dose: 5 mg Multivitamins (Hexavitamin) 1 tab PO DAILY [facility] Last Admin: 08/21/17 10:47 Dose: 1 tab Mupirocin (Bactroban Ointment) 0 gm TOP BID [facility] Last Admin: 08/21/17 10:50 Dose: 1 applic Paricalcitol (Zemplar) 2 mcg IV TTS [facility] Last Admin: 08/20/17 15:20 Dose: 2 mcg Tamsulosin HCl (Flomax) 0.4 mg PO DAILY [facility] Last Admin: 08/21/17 10:48 Dose: 0.4 mg - Labs Labs: 08/17/17 07:06 08/17/17 07:06 PT 17.1 SECONDS (9.7-12.2) H 08/09/17 19:57 INR 1.5 08/09/17 19:57 APTT 36 SECONDS (21-34) H 08/09/17 19:57 - Constitutional Appears: Chronically Ill - Head Exam Head Exam: ATRAUMATIC, NORMAL INSPECTION, NORMOCEPHALIC - Eye Exam Eye Exam: EOMI, Normal appearance, PERRL Pupil Exam: NORMAL ACCOMODATION, PERRL - ENT Exam ENT Exam: Mucous Membranes Moist, Normal Exam - Neck Exam Neck Exam: Normal Inspection - Respiratory Exam Respiratory Exam: Accessory Muscle Use Additional comments: on BiPap - Cardiovascular Exam Cardiovascular Exam: Tachycardia - GI/Abdominal Exam Additional comments: PEG - Rectal Exam Rectal Exam: Deferred - Exam Exam: NORMAL INSPECTION - Extremities Exam Extremities Exam: Pedal Edema - Back Exam Back Exam: NORMAL INSPECTION - Neurological Exam Neurological Exam: Alert, Altered Neuro motor strength exam: Left Upper Extremity: 2/1, Right Upper Extremity: 2/1 , Left Lower Extremity: 2/1, Right Lower Extremity: 2/1 - Psychiatric Exam Psychiatric exam: Flat Affect - Skin Skin Exam: Dry, Normal Color Assessment and Plan - Assessment and Plan (Free Text) Assessment: Patient seen and examined in the bed. Remains lethargic, only opens his eyes slightly, does not fallow commends. On BiPap for respiratory support. Clinical condition same as yesterday. I got call from nursing and case management with concerns about patient's condition and his lethargy especially. Soon after patient's came in and goals of care discussed. I reviewed patient's clinical presentation. Mrs. Cunningham agreed that her ' s condition has changed and worsened. he is not responding to her the way he used to. Mrs. Cunningham also said that her has suffered for a long time and that she was ready to let him go. Code status discussed, what she understood very well and was very clear that she would not want any further aggressive treatments. Mrs. Cunningham also said that if her could talk to her, he would not want any of those tubes already attached to him. However, Mrs. Cunningham felt she should talk to her children first before making any final decision. We agreed to meet again tomorow to complete POLST' Mrs. Cunningham is considering DNR/DNI. Impression * Chronically ill man with noticeable decline in clinical presentation * is concerned with comfort level and is considering DNR/DNI with out any further agressive interventions Suggestions * Support respiratory status * Family meeting tomorrow morning for POLST completion.
--- NOTE | 2017-08-21 14:03 | CP.PCM.PN ---
Subjective - Date & Time of Evaluation Date of Evaluation: 08/21/17 Time of Evaluation: 11:00 - Subjective Subjective: Patient seen and examined at bedside , lethargic, arousable, not follow commands , moderate resp . distress , on continuous bipap , hypotensive at bed side Objective - Vital Signs/Intake and Output Vital Signs (last 24 hours): Temp Pulse Resp BP Pulse Ox 97.5 F L 110 H 20 105/61 99 08/21/17 08:00 08/21/17 08:00 08/21/17 08:00 08/21/17 08:00 08/21/17 08:00 Intake and Output: 08/21/17 08/21/17 06:59 18:59 Intake Total 1100 Output Total 150 Balance 950 - Medications Medications: Current Medications Acetaminophen (Tylenol 325mg Tab) 650 mg PO Q4 PRN PRN Reason: Pain, moderate (4-7) Last Admin: 08/17/17 06:25 Dose: 650 mg Acetaminophen (Tylenol 325mg Tab) 650 mg PO Q6 PRN PRN Reason: FEVER ABOVE 101 OR [place] Albuterol/Ipratropium (Duoneb 3 Mg/0.5 Mg (3 Ml) Ud) 3 ml INH RQ6 [facility] Last Admin: 08/21/17 13:19 Dose: 3 ml Ascorbic Acid (Vitamin C 500 Mg Tab) 500 mg PO DAILY [facility] Last Admin: 08/21/17 10:47 Dose: 500 mg Clopidogrel Bisulfate (Plavix) 75 mg PO DAILY [facility] Last Admin: 08/21/17 10:48 Dose: 75 mg Epoetin Jacobo (Procrit) 10,000 unit IV TTS [facility] Last Admin: 08/20/17 15:19 Dose: 10,000 unit Famotidine (Pepcid) 20 mg PO DAILY [facility] Last Admin: 08/21/17 10:47 Dose: 20 mg Finasteride (Proscar) 5 mg PO DAILY [facility] Last Admin: 08/21/17 10:48 Dose: 5 mg Hydralazine HCl (Apresoline) 10 mg PO BID [facility] Metronidazole (Flagyl) 500 mg in 100 mls @ 100 mls/hr IVPB Q8 [facility] Last Admin: 08/21/17 05:02 Dose: 100 mls/hr Vancomycin HCl 1 gm/ Sodium (Chloride) 250 mls @ 166.7 mls/hr IVPB TTS [facility] Levothyroxine Sodium (Synthroid) 25 mcg PO DAILY@0630 [facility] Last Admin: 08/21/17 05:30 Dose: 25 mcg Megestrol Acetate (Megace) 400 mg PO DAILY [facility] Last Admin: 08/21/17 10:47 Dose: 400 mg Metoprolol Tartrate (Lopressor) 25 mg PO BID [facility] Last Admin: 07/30/17 18:16 Dose: Not Given Midodrine (Proamatine) 5 mg PO TID [facility] Last Admin: 08/21/17 10:48 Dose: 5 mg Multivitamins (Hexavitamin) 1 tab PO DAILY [facility] Last Admin: 08/21/17 10:47 Dose: 1 tab Mupirocin (Bactroban Ointment) 0 gm TOP BID [facility] Last Admin: 08/21/17 10:50 Dose: 1 applic Paricalcitol (Zemplar) 2 mcg IV TTS [facility] Last Admin: 08/20/17 15:20 Dose: 2 mcg Tamsulosin HCl (Flomax) 0.4 mg PO DAILY [facility] Last Admin: 08/21/17 10:48 Dose: 0.4 mg - Labs Labs: 08/17/17 07:06 08/17/17 07:06 PT 17.1 SECONDS (9.7-12.2) H 08/09/17 19:57 INR 1.5 08/09/17 19:57 APTT 36 SECONDS (21-34) H 08/09/17 19:57 - Constitutional Appears: Cachectic, Chronically Ill, Other (moderate resp.distress ) - Cardiovascular Exam Cardiovascular Exam: Tachycardia, REGULAR RHYTHM, +S1, +S2 - GI/Abdominal Exam GI & Abdominal Exam: Soft (peg tube in place) Assessment and Plan - Assessment and Plan (Free Text) Assessment: A/P 82 yr old male admitted with sepsis / resp distress on continuous bipap and very lethargic D/W DR. Urias , accepted patient to ICU for further monitoring and management Transferred patient to ICU discussed with The above plan discussed with Dr. Coyle, who agrees
--- NOTE | 2017-08-21 14:12 | CP.PCM.CON ---
History of Present Illness - History of Present Illness History of Present Illness: Palliative consult requested for goals of care discussion Patient is a 89 yo male admitted from [place] with SOB and respiratory distress, tachycardia and was febrile. Upon admission, the CT chest was significant for pneumonia and atelectasis. Doppler was negative DVT. Patient started on Zosyn IV, Neb treatement and O2 supplement. PMH: BPH, asthma, COPD, DVT,HTN Soc. Hx: [place] resident, single, brother Jigar involved in care Fam. hx: patient unable to provide any Review of Systems - Review of Systems All systems: reviewed and no additional remarkable complaints except (patient is confused with un clear spech , unable to provide any complaints appears in no acute distress) Past Patient History - Past Medical History & Family History Past Medical History?: Yes - Past Social History Smoking Status: Former Smoker - CARDIAC Hx Hypertension: Yes - PULMONARY Hx Respiratory Disorders: No - NEUROLOGICAL Hx Neurological Disorder: No - HEENT Hx HEENT Problems: No - RENAL Other/Comment: Chronic Kidney Disease. Retention of Urine - ENDOCRINE/METABOLIC Hx Diabetes Mellitus Type 2: Yes - HEMATOLOGICAL/ONCOLOGICAL Hx Blood Disorders: No - INTEGUMENTARY Other/Comment: Pressure Ulcer - MUSCULOSKELETAL/RHEUMATOLOGICAL Hx Arthritis: Yes (OA, Gout) - GASTROINTESTINAL Hx Gastrointestinal Disorders: Yes Hx Gastritis: Yes - GENITOURINARY/GYNECOLOGICAL Hx Genitourinary Disorders: Yes Other/Comment: Obstructive and Reflux Uropathy - PSYCHIATRIC Hx Substance Use: No - SURGICAL HISTORY Hx Surgeries: Yes Other/Comment: "Quadruple bypass" - ANESTHESIA Hx Anesthesia: Yes Hx Anesthesia Reactions: No Hx Malignant Hyperthermia: No Meds Allergies/Adverse Reactions: Allergies Allergy/AdvReac Type Severity Reaction Status Date / Time No Known Allergies Allergy Verified 05/27/17 05:37 - Medications Medications: Current Medications Acetaminophen (Tylenol 325mg Tab) 650 mg PO Q4 PRN PRN Reason: Pain, moderate (4-7) Last Admin: 08/17/17 06:25 Dose: 650 mg Acetaminophen (Tylenol 325mg Tab) 650 mg PO Q6 PRN PRN Reason: FEVER ABOVE 101 OR NASCIMENTO Albuterol/Ipratropium (Duoneb 3 Mg/0.5 Mg (3 Ml) Ud) 3 ml INH RQ6 [facility] Last Admin: 08/21/17 13:19 Dose: 3 ml Ascorbic Acid (Vitamin C 500 Mg Tab) 500 mg PO DAILY [facility] Last Admin: 08/21/17 10:47 Dose: 500 mg Clopidogrel Bisulfate (Plavix) 75 mg PO DAILY [facility] Last Admin: 08/21/17 10:48 Dose: 75 mg Epoetin Jacobo (Procrit) 10,000 unit IV TTS [facility] Last Admin: 08/20/17 15:19 Dose: 10,000 unit Famotidine (Pepcid) 20 mg PO DAILY [facility] Last Admin: 08/21/17 10:47 Dose: 20 mg Finasteride (Proscar) 5 mg PO DAILY [facility] Last Admin: 08/21/17 10:48 Dose: 5 mg Hydralazine HCl (Apresoline) 10 mg PO BID [facility] Metronidazole (Flagyl) 500 mg in 100 mls @ 100 mls/hr IVPB Q8 [facility] Last Admin: 08/21/17 05:02 Dose: 100 mls/hr Vancomycin HCl 1 gm/ Sodium (Chloride) 250 mls @ 166.7 mls/hr IVPB TTS [facility] Levothyroxine Sodium (Synthroid) 25 mcg PO DAILY@0630 [facility] Last Admin: 08/21/17 05:30 Dose: 25 mcg Megestrol Acetate (Megace) 400 mg PO DAILY [facility] Last Admin: 08/21/17 10:47 Dose: 400 mg Metoprolol Tartrate (Lopressor) 25 mg PO BID [facility] Last Admin: 07/30/17 18:16 Dose: Not Given Midodrine (Proamatine) 5 mg PO TID [facility] Last Admin: 08/21/17 10:48 Dose: 5 mg Multivitamins (Hexavitamin) 1 tab PO DAILY [facility] Last Admin: 08/21/17 10:47 Dose: 1 tab Mupirocin (Bactroban Ointment) 0 gm TOP BID [facility] Last Admin: 08/21/17 10:50 Dose: 1 applic Paricalcitol (Zemplar) 2 mcg IV TTS [facility] Last Admin: 08/20/17 15:20 Dose: 2 mcg Tamsulosin HCl (Flomax) 0.4 mg PO DAILY [facility] Last Admin: 08/21/17 10:48 Dose: 0.4 mg Physical Exam - Constitutional Appears: No Acute Distress, Chronically Ill - Head Exam Head Exam: ATRAUMATIC, NORMAL INSPECTION, NORMOCEPHALIC - Eye Exam Eye Exam: EOMI, Normal appearance, PERRL Pupil Exam: NORMAL ACCOMODATION, PERRL - ENT Exam ENT Exam: Mucous Membranes Moist, Normal Exam - Neck Exam Neck exam: Positive for: Normal Inspection - Respiratory Exam Respiratory Exam: Decreased Breath Sounds, NORMAL BREATHING PATTERN - Cardiovascular Exam Cardiovascular Exam: Tachycardia, REGULAR RHYTHM - GI/Abdominal Exam GI & Abdominal Exam: Normal Bowel Sounds, Soft - Rectal Exam Rectal Exam: Deferred - Exam Exam: NORMAL INSPECTION - Extremities Exam Extremities exam: Positive for: pedal edema - Back Exam Back exam: NORMAL INSPECTION - Neurological Exam Neurological exam: Alert, Altered - Psychiatric Exam Psychiatric exam: Agitated - Skin Skin Exam: Normal Color, Warm Results - Vital Signs Recent Vital Signs: Last Vital Signs Temp 97.5 F L 08/21/17 08:00 Pulse 110 H 08/21/17 08:00 Resp 20 08/21/17 08:00 BP 105/61 08/21/17 08:00 Pulse Ox 99 08/21/17 08:00 - Labs Result Diagrams: 08/17/17 07:06 08/17/17 07:06 Labs: Laboratory Results - last 24 hr 08/20/17 08/20/17 08/21/17 16:00 21:30 00:14 POC Glucose (mg/dL) 115 H 112 H 113 H 08/21/17 08/21/17 08/21/17 05:57 07:35 11:43 POC Glucose (mg/dL) 122 H 112 H 108 Assessment & Plan - Assessment and Plan (Free Text) Assessment: Palliative consult Code status Full Code, no Advance Directive ? Living Will on chart, PPS 10% I reviewed medical records, all diagnostic studies, examined patient in the bed. Patient is alert, altered and agitated at times, on safety watch. No acute distress. patient is confused with speech that is not clear. Breath sounds are diminished, no cough, O2 via NC. Abdomen soft and large, active bowel sounds. All extremities mobile. BP 150/64, HR 92, afebrile. WBC 11.4, Hb 12.3. I called patient's brother Jigar number X 2 and got message of full voicemail box. Impression * Elderly male in no acute distress, confused and agitated, on safety watch * Needs max assistance with ADLs * No Advance directive on chart, wishes for the end of life care are not known * Brother Jigar not available over the phone at present Suggestion * Promote safety * Respiratory support * Patient should have his Code status discussed, defined and documented Will continue looking for brother Jigar to discuss Code status
--- NOTE | 2017-08-21 14:50 | PCM.PROC ---
Procedures Attestation:: I certify that I have explained the specified Operation(s) or Procedure(s), risks, benefits and reasonable alternatives to the Patient and/or other person responsible. The opportunity was given to ask questions and all questions answered - Intubation Sedative: Etomidate Mg Given: 20 Laryngoscope: Ian ET Tube Size: 8.0 ET Tube Uncuffed: No ET Tube Secured at Depth: 22 ET Tube Secured Locarion: Lips ET Tube Placement Confirmation: Visualized Passing Through Cords, Breath Sounds Equal Bilaterally, No Breath Sounds Over Epigastrum, Confirmation w/Capnometry Patient Tolerated Procedure: Well Procedure Immediate Complications: None
[2017-08-21] MEDS ORDERED: Etomidate 20 mg/10ml Inj IV ONE (15:00)
[2017-08-21] MEDS ORDERED: Propofol 10 mg/ml Inj (20 ML) ONE (15:21)
[2017-08-21] MEDS ORDERED: Propofol 10 mg/ml Inj (20 ML) IVP ONE (15:54)
--- NOTE | 2017-08-21 15:54 | PCM.PROC ---
Procedures Attestation:: I certify that I have explained the specified Operation(s) or Procedure(s), risks, benefits and reasonable alternatives to the Patient and/or other person responsible. The opportunity was given to ask questions and all questions answered - Central Line Placement Right Internal Jugular Triple Lumen Catheter Aseptic technique was employed throughout the procedure: Hand Hygiene done prior to procedure, Full sterile barriers (mask, hair cover, sterile gown, sterile gloves), Full body sterile drape, Chloraprep Antiseptic: 30 second prep for IJ or SC sites CVP Time Out Performed: Yes Pt. Placed on Pulse Ox Monitor: Yes Central Line Prep: Chlorhexidine-Alcohol Combination Local Anesthesia Used: Lidocaine 1% Amount of Anesthesia Used (mls): 5 Ultrasound Used for Placement: Yes Central Line Lumen Inserted: triple Central Line Length: 16 cm Post Procedure: Sutured in Place, Good Blood Return, All Ports Aspirated, Flushed, Capped, Sterile Dressing Applied Secured by: Securement device Post procedure dressing: Clear vapor permeable, Chlorhexidine disc (Biopatch) Post Procedure X-Ray: Yes Patient Tolerated Procedure: Well Immediate Complications: None
--- NOTE | 2017-08-21 16:22 | RAD ---
HISTORY: s/p intubation COMPARISON: 08/17/2017 FINDINGS: The endotracheal tube terminates 5.1 cm proximal to the baljeet. The right-sided dialysis catheter terminates in the right atrium. LUNGS: There is redemonstration of pulmonary venous congestion and persistent left lower lobe consolidation. PLEURA: There is worsening right pleural effusion and persistent moderate left pleural effusion. No pneumothorax apparent. CARDIOVASCULAR: Persistent moderate cardiomegaly. Status post CABG. OSSEOUS STRUCTURES: No significant abnormalities. VISUALIZED UPPER ABDOMEN: Normal. OTHER FINDINGS: None. IMPRESSION: Persistent cardiomegaly and moderate left pleural effusion with worsening moderate right pleural effusion Persistent consolidation in the left lower lobe.
--- NOTE | 2017-08-21 16:39 | CP.PCM.PN ---
Subjective - Date & Time of Evaluation Date of Evaluation: 08/21/17 Time of Evaluation: 09:00 - Subjective Subjective: intubated / sedated rx in progress Objective - Vital Signs/Intake and Output Vital Signs (last 24 hours): Temp Pulse Resp BP Pulse Ox 97.5 F L 110 H 20 105/61 99 08/21/17 08:00 08/21/17 08:00 08/21/17 08:00 08/21/17 08:00 08/21/17 08:00 Intake and Output: 08/21/17 08/21/17 06:59 18:59 Intake Total 1100 Output Total 150 Balance 950 - Medications Medications: Current Medications Acetaminophen (Tylenol 325mg Tab) 650 mg PO Q4 PRN PRN Reason: Pain, moderate (4-7) Last Admin: 08/17/17 06:25 Dose: 650 mg Acetaminophen (Tylenol 325mg Tab) 650 mg PO Q6 PRN PRN Reason: FEVER ABOVE 101 OR NASCIMENTO Albuterol/Ipratropium (Duoneb 3 Mg/0.5 Mg (3 Ml) Ud) 3 ml INH RQ6 [facility] Last Admin: 08/21/17 13:19 Dose: 3 ml Ascorbic Acid (Vitamin C 500 Mg Tab) 500 mg PO DAILY [facility] Last Admin: 08/21/17 10:47 Dose: 500 mg Clopidogrel Bisulfate (Plavix) 75 mg PO DAILY [facility] Last Admin: 08/21/17 10:48 Dose: 75 mg Epoetin Jacobo (Procrit) 10,000 unit IV TTS [facility] Last Admin: 08/20/17 15:19 Dose: 10,000 unit Famotidine (Pepcid) 20 mg PO DAILY [facility] Last Admin: 08/21/17 10:47 Dose: 20 mg Finasteride (Proscar) 5 mg PO DAILY [facility] Last Admin: 08/21/17 10:48 Dose: 5 mg Hydralazine HCl (Apresoline) 10 mg PO BID [facility] Metronidazole (Flagyl) 500 mg in 100 mls @ 100 mls/hr IVPB Q8 [facility] Last Admin: 08/21/17 16:10 Dose: 100 mls/hr Vancomycin HCl 1 gm/ Sodium (Chloride) 250 mls @ 166.7 mls/hr IVPB TTS [facility] Levothyroxine Sodium (Synthroid) 25 mcg PO DAILY@0630 [facility] Last Admin: 08/21/17 05:30 Dose: 25 mcg Megestrol Acetate (Megace) 400 mg PO DAILY [facility] Last Admin: 08/21/17 10:47 Dose: 400 mg Metoprolol Tartrate (Lopressor) 25 mg PO BID [facility] Last Admin: 07/30/17 18:16 Dose: Not Given Midodrine (Proamatine) 5 mg PO TID [facility] Last Admin: 08/21/17 15:12 Dose: Not Given Multivitamins (Hexavitamin) 1 tab PO DAILY [facility] Last Admin: 08/21/17 10:47 Dose: 1 tab Mupirocin (Bactroban Ointment) 0 gm TOP BID [facility] Last Admin: 08/21/17 10:50 Dose: 1 applic Paricalcitol (Zemplar) 2 mcg IV TTS [facility] Last Admin: 08/20/17 15:20 Dose: 2 mcg Tamsulosin HCl (Flomax) 0.4 mg PO DAILY [facility] Last Admin: 08/21/17 10:48 Dose: 0.4 mg - Labs Labs: 08/17/17 07:06 08/17/17 07:06 PT 17.1 SECONDS (9.7-12.2) H 08/09/17 19:57 INR 1.5 08/09/17 19:57 APTT 36 SECONDS (21-34) H 08/09/17 19:57 - Constitutional Appears: Non-toxic, Confused, Cachectic, Chronically Ill - Head Exam Head Exam: NORMOCEPHALIC - Eye Exam Eye Exam: absent: Scleral icterus - ENT Exam ENT Exam: Mucous Membranes Dry - Neck Exam Neck Exam: absent: Lymphadenopathy - Respiratory Exam Respiratory Exam: Decreased Breath Sounds, Rales, Rhonchi - Cardiovascular Exam Cardiovascular Exam: REGULAR RHYTHM - GI/Abdominal Exam GI & Abdominal Exam: Distended, Soft - Rectal Exam Rectal Exam: Deferred - Exam Exam: NORMAL INSPECTION - Extremities Exam Extremities Exam: absent: Pedal Edema - Back Exam Back Exam: absent: CVA tenderness (L), CVA tenderness (R) - Neurological Exam Neurological Exam: Alert, Altered, Awake Assessment and Plan (1) Fever Status: Acute (2) Leukocytosis Status: Acute (3) UTI (urinary tract infection) Status: Acute (4) Acute renal failure Status: Acute (5) Generalized weakness Status: Acute (6) Hyperkalemia Status: Acute (7) Troponin level elevated Status: Acute (8) UTI (urinary tract infection) due to Enterococcus Status: Acute (9) UTI (urinary tract infection) due to Enterococcus Status: Acute (10) UTI due to Klebsiella species Status: Acute (11) UTI due to Klebsiella species Status: Acute
[2017-08-21 17:32] LABS: BASO # 0.1 K/uL (0.0-0.2); BASO % 0.6 % (0.0-2.0); EOS # 0.3 K/uL (0.0-0.7); EOS % 3.4 % (0.0-4.0); HEMATOCRIT 31.2 % (35.0-51.0); LYMPH # 1.7 K/uL (1.0-4.3); LYMPH % 18.7 % (20.0-40.0); MEAN CELL VOLUME 90.3 fL (80.0-94.0); MEAN CORPUSCULAR HEMOGLOBIN 28.2 pg (27.0-31.0); MEAN CORPUSCULAR HGB CONC 31.3 g/dL (33.0-37.0); MEAN PLATELET VOLUME 8.6 fL (7.2-11.7); MONO # 0.7 K/uL (0.0-0.8); MONO % 7.9 % (0.0-10.0); NRBC % 0.1 % (0.0-2.0); RED CELL DISTRIBUTION WIDTH 21.4 % (11.5-14.5); WHITE BLOOD COUNT 9.1 K/uL (4.8-10.8)
--- NOTE | 2017-08-21 17:34 | CP.PCM.CON ---
<Celestino Avalos - Last Filed: 08/21/17 17:52> History of Present Illness - History of Present Illness History of Present Illness: PGY1 ICU consult note for Dr. Urias Reason for Consult: Respiratory Distress Patient is an 82 year old male with PMH of CAD, HTN, CKD, dementia and obstructive uropathy requiring wise that has an extend hospital stay that was recently in ICU on 08/06. ICU was consulted for respiratory distress. Patient was on BiPAP PRN on floor but did not respond. Discussion was had with family and stated that she wanted everything to be done for the patient. He is a full code. Patient was brought down to the ICU on venti-mask in mod-severe respiratory distress. ROS was unattainable due to respiratory distress. 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 Patient previously smoked more than half a pack of cigarettes a day for moth than 40 years. Review of Systems - Review of Systems Systems not reviewed;Unavailable: Respiratory Distress Past Patient History - Past Medical History & Family History Past Medical History?: Yes - Past Social History Smoking Status: Former Smoker - CARDIAC Hx Hypertension: Yes - PULMONARY Hx Respiratory Disorders: No - NEUROLOGICAL Hx Neurological Disorder: No - HEENT Hx HEENT Problems: No - RENAL Other/Comment: Chronic Kidney Disease. Retention of Urine - ENDOCRINE/METABOLIC Hx Diabetes Mellitus Type 2: Yes - HEMATOLOGICAL/ONCOLOGICAL Hx Blood Disorders: No - INTEGUMENTARY Other/Comment: Pressure Ulcer - MUSCULOSKELETAL/RHEUMATOLOGICAL Hx Arthritis: Yes (OA, Gout) - GASTROINTESTINAL Hx Gastrointestinal Disorders: Yes Hx Gastritis: Yes - GENITOURINARY/GYNECOLOGICAL Hx Genitourinary Disorders: Yes Other/Comment: Obstructive and Reflux Uropathy - PSYCHIATRIC Hx Substance Use: No - SURGICAL HISTORY Hx Surgeries: Yes Other/Comment: "Quadruple bypass" - ANESTHESIA Hx Anesthesia: Yes Hx Anesthesia Reactions: No Hx Malignant Hyperthermia: No Meds Allergies/Adverse Reactions: Allergies Allergy/AdvReac Type Severity Reaction Status Date / Time No Known Allergies Allergy Verified 05/27/17 05:37 - Medications Medications: Current Medications Acetaminophen (Tylenol 325mg Tab) 650 mg PO Q4 PRN PRN Reason: Pain, moderate (4-7) Last Admin: 08/17/17 06:25 Dose: 650 mg Acetaminophen (Tylenol 325mg Tab) 650 mg PO Q6 PRN PRN Reason: FEVER ABOVE 101 OR NASCIMENTO Albuterol/Ipratropium (Duoneb 3 Mg/0.5 Mg (3 Ml) Ud) 3 ml INH RQ6 [facility] Last Admin: 08/21/17 13:19 Dose: 3 ml Ascorbic Acid (Vitamin C 500 Mg Tab) 500 mg PO DAILY [facility] Last Admin: 08/21/17 10:47 Dose: 500 mg Clopidogrel Bisulfate (Plavix) 75 mg PO DAILY [facility] Last Admin: 08/21/17 10:48 Dose: 75 mg Epoetin Jacobo (Procrit) 10,000 unit IV TTS [facility] Last Admin: 08/20/17 15:19 Dose: 10,000 unit Famotidine (Pepcid) 20 mg PO DAILY [facility] Last Admin: 08/21/17 10:47 Dose: 20 mg Finasteride (Proscar) 5 mg PO DAILY [facility] Last Admin: 08/21/17 10:48 Dose: 5 mg Hydralazine HCl (Apresoline) 10 mg PO BID [facility] Metronidazole (Flagyl) 500 mg in 100 mls @ 100 mls/hr IVPB Q8 [facility] Last Admin: 08/21/17 16:10 Dose: 100 mls/hr Vancomycin HCl 1 gm/ Sodium (Chloride) 250 mls @ 166.7 mls/hr IVPB TTS [facility] Levothyroxine Sodium (Synthroid) 25 mcg PO DAILY@0630 [facility] Last Admin: 08/21/17 05:30 Dose: 25 mcg Megestrol Acetate (Megace) 400 mg PO DAILY [facility] Last Admin: 08/21/17 10:47 Dose: 400 mg Metoprolol Tartrate (Lopressor) 25 mg PO BID [facility] Last Admin: 07/30/17 18:16 Dose: Not Given Midodrine (Proamatine) 5 mg PO TID [facility] Last Admin: 08/21/17 15:12 Dose: Not Given Multivitamins (Hexavitamin) 1 tab PO DAILY [facility] Last Admin: 08/21/17 10:47 Dose: 1 tab Mupirocin (Bactroban Ointment) 0 gm TOP BID [facility] Last Admin: 08/21/17 10:50 Dose: 1 applic Paricalcitol (Zemplar) 2 mcg IV TTS [facility] Last Admin: 08/20/17 15:20 Dose: 2 mcg Tamsulosin HCl (Flomax) 0.4 mg PO DAILY [facility] Last Admin: 08/21/17 10:48 Dose: 0.4 mg Physical Exam - Constitutional Appears: In Acute Distress - Eye Exam Eye Exam: EOMI - ENT Exam ENT Exam: Mucous Membranes Dry - Respiratory Exam Respiratory Exam: Accessory Muscle Use, Respiratory Distress (oxygen by venti- mask) Results - Vital Signs Recent Vital Signs: Last Vital Signs Temp 97.4 F L 08/21/17 14:45 Pulse 96 H 08/21/17 17:11 Resp 16 08/21/17 17:11 BP 106/61 08/21/17 17:11 Pulse Ox 100 08/21/17 17:11 - Labs Result Diagrams: 08/21/17 17:29 08/17/17 07:06 Labs: Laboratory Results - last 24 hr 08/20/17 08/21/17 08/21/17 21:30 00:14 05:57 POC Glucose (mg/dL) 112 H 113 H 122 H 08/21/17 08/21/17 07:35 11:43 POC Glucose (mg/dL) 112 H 108 Assessment & Plan - Assessment and Plan (Free Text) Assessment: 82 y/o M with PMHx of CAD, HTN, CKD, dementia and obstructive uropathy requiring wise admitted 07/24 with lethargy and fever from the [facility]. Patient was transferred to the ICU on 08/21 due to respiratory distress. Plan: Respiratory: Patient intubated due to respiratory failure CXR 08/21 - Persistent cardiomegaly and moderate left pleural effusion with worsening moderate right pleural effusion. Persistent consolidation in the left lower lobe. COPD Pneumonia Pleural effusion b/l s/p thoracentesis Vanco 1gm IVPB TTS Duoneb 3ml INH RQ6 CV: CAD Plavix 75mg PO daily Renal: Hemodialysis TTS Paricalcitol 2mcg IV TTS Midodrine 5mg PO TID : Finasteride 5mg PO daily Flomax .4mg PO daily Case discussed with Dr. Adonay Tirado Robbie PGY1 <Chip Urias - Last Filed: 08/21/17 18:28> Meds - Medications Medications: Current Medications Acetaminophen (Tylenol 325mg Tab) 650 mg PO Q4 PRN PRN Reason: Pain, moderate (4-7) Last Admin: 08/17/17 06:25 Dose: 650 mg Acetaminophen (Tylenol 325mg Tab) 650 mg PO Q6 PRN PRN Reason: FEVER ABOVE 101 OR [place]IM[place] Albuterol/Ipratropium (Duoneb 3 Mg/0.5 Mg (3 Ml) Ud) 3 ml INH RQ6 [facility] Last Admin: 08/21/17 13:19 Dose: 3 ml Ascorbic Acid (Vitamin C 500 Mg Tab) 500 mg PO DAILY [facility] Last Admin: 08/21/17 10:47 Dose: 500 mg Clopidogrel Bisulfate (Plavix) 75 mg PO DAILY [facility] Last Admin: 08/21/17 10:48 Dose: 75 mg Epoetin Jacobo (Procrit) 10,000 unit IV TTS [facility] Last Admin: 08/20/17 15:19 Dose: 10,000 unit Famotidine (Pepcid) 20 mg PO DAILY [facility] Last Admin: 08/21/17 10:47 Dose: 20 mg Finasteride (Proscar) 5 mg PO DAILY [facility] Last Admin: 08/21/17 10:48 Dose: 5 mg Hydralazine HCl (Apresoline) 10 mg PO BID [facility] Metronidazole (Flagyl) 500 mg in 100 mls @ 100 mls/hr IVPB Q8 [facility] Last Admin: 08/21/17 16:10 Dose: 100 mls/hr Vancomycin HCl 1 gm/ Sodium (Chloride) 250 mls @ 166.7 mls/hr IVPB TTS [facility] Levothyroxine Sodium (Synthroid) 25 mcg PO DAILY@0630 [facility] Last Admin: 08/21/17 05:30 Dose: 25 mcg Megestrol Acetate (Megace) 400 mg PO DAILY [facility] Last Admin: 08/21/17 10:47 Dose: 400 mg Metoprolol Tartrate (Lopressor) 25 mg PO BID [facility] Last Admin: 07/30/17 18:16 Dose: Not Given Midodrine (Proamatine) 5 mg PO TID [facility] Last Admin: 08/21/17 17:53 Dose: 5 mg Multivitamins (Hexavitamin) 1 tab PO DAILY [facility] Last Admin: 08/21/17 10:47 Dose: 1 tab Mupirocin (Bactroban Ointment) 0 gm TOP BID [facility] Last Admin: 08/21/17 17:28 Dose: 1 applic Paricalcitol (Zemplar) 2 mcg IV TTS [facility] Last Admin: 08/20/17 15:20 Dose: 2 mcg Tamsulosin HCl (Flomax) 0.4 mg PO DAILY [facility] Last Admin: 08/21/17 10:48 Dose: 0.4 mg Results - Vital Signs Recent Vital Signs: Last Vital Signs Temp 97.4 F L 08/21/17 14:45 Pulse 96 H 08/21/17 17:11 Resp 16 08/21/17 17:11 BP 106/61 08/21/17 17:11 Pulse Ox 100 08/21/17 17:11 - Labs Result Diagrams: 08/21/17 17:29 08/21/17 17:29 Labs: Laboratory Results - last 24 hr 08/20/17 08/21/17 08/21/17 21:30 00:14 05:57 WBC RBC Hgb Hct MCV MCH MCHC RDW Plt Count MPV Neut % (Auto) Lymph % (Auto) Cassia % (Auto) Eos % (Auto) Baso % (Auto) Neut # Lymph # Cassia # Eos # Baso # PT INR APTT Puncture Site pCO2 pO2 HCO3 ABG pH ABG Total CO2 ABG O2 Saturation ABG Base Excess ABG Hemoglobin ABG Carboxyhemoglobin POC ABG HHb (Measured) ABG Methemoglobin Elder Test A-a O2 Difference Respiratory Index Hgb O2 Saturation Vent Mode Mechanical Rate FiO2 Tidal Volume PEEP Sodium Potassium Chloride Carbon Dioxide Anion Gap BUN Creatinine Est GFR ( Amer) Est GFR (Non-Af Amer) POC Glucose (mg/dL) 112 H 113 H 122 H Random Glucose Calcium Phosphorus Magnesium Total Bilirubin AST ALT Alkaline Phosphatase Total Protein Albumin Globulin Albumin/Globulin Ratio 08/21/17 08/21/17 08/21/17 07:35 11:43 17:29 WBC 9.1 RBC 3.45 L Hgb 9.7 L Hct 31.2 L MCV 90.3 MCH 28.2 MCHC 31.3 L RDW 21.4 H Plt Count 176 MPV 8.6 Neut % (Auto) 69.4 Lymph % (Auto) 18.7 L Cassia % (Auto) 7.9 Eos % (Auto) 3.4 Baso % (Auto) 0.6 Neut # 6.3 Lymph # 1.7 Cassia # 0.7 Eos # 0.3 Baso # 0.1 PT INR APTT Puncture Site pCO2 pO2 HCO3 ABG pH ABG Total CO2 ABG O2 Saturation ABG Base Excess ABG Hemoglobin ABG Carboxyhemoglobin POC ABG HHb (Measured) ABG Methemoglobin Elder Test A-a O2 Difference Respiratory Index Hgb O2 Saturation Vent Mode Mechanical Rate FiO2 Tidal Volume PEEP Sodium Potassium Chloride Carbon Dioxide Anion Gap BUN Creatinine Est GFR ( Amer) Est GFR (Non-Af Amer) POC Glucose (mg/dL) 112 H 108 Random Glucose Calcium Phosphorus Magnesium Total Bilirubin AST ALT Alkaline Phosphatase Total Protein Albumin Globulin Albumin/Globulin Ratio 08/21/17 08/21/17 08/21/17 17:29 17:29 18:02 WBC RBC Hgb Hct MCV MCH MCHC RDW Plt Count MPV Neut % (Auto) Lymph % (Auto) Cassia % (Auto) Eos % (Auto) Baso % (Auto) Neut # Lymph # Cassia # Eos # Baso # PT 17.1 H INR 1.5 APTT 34 Puncture Site pCO2 pO2 HCO3 ABG pH ABG Total CO2 ABG O2 Saturation ABG Base Excess ABG Hemoglobin ABG Carboxyhemoglobin POC ABG HHb (Measured) ABG Methemoglobin Elder Test A-a O2 Difference Respiratory Index Hgb O2 Saturation Vent Mode Mechanical Rate FiO2 Tidal Volume PEEP Sodium 131 L Potassium 4.3 Chloride 100 Carbon Dioxide 28 Anion Gap 8 L BUN 44 H Creatinine 2.3 H Est GFR ( Amer) 33 Est GFR (Non-Af Amer) 27 POC Glucose (mg/dL) 101 Random Glucose 79 Calcium 7.7 L Phosphorus 3.6 Magnesium 2.2 Total Bilirubin 1.0 AST 29 ALT 36 Alkaline Phosphatase 109 Total Protein 5.2 L Albumin 2.4 L Globulin 2.8 Albumin/Globulin Ratio 0.9 L 08/21/17 18:20 WBC RBC Hgb Hct MCV MCH MCHC RDW Plt Count MPV Neut % (Auto) Lymph % (Auto) Cassia % (Auto) Eos % (Auto) Baso % (Auto) Neut # Lymph # Cassia # Eos # Baso # PT INR APTT Puncture Site Rra pCO2 38 pO2 252 H HCO3 29.6 H ABG pH 7.50 H ABG Total CO2 30.8 H ABG O2 Saturation 98.7 H ABG Base Excess 6.0 H ABG Hemoglobin 10.0 L ABG Carboxyhemoglobin 1.3 POC ABG HHb (Measured) 1.3 ABG Methemoglobin 0.8 Elder Test Pos A-a O2 Difference 414.0 Respiratory Index 1.6 Hgb O2 Saturation 96.6 Vent Mode Prvc Mechanical Rate 14 FiO2 100.0 Tidal Volume 500 PEEP 5 Sodium Potassium Chloride Carbon Dioxide Anion Gap BUN Creatinine Est GFR ( Amer) Est GFR (Non-Af Amer) POC Glucose (mg/dL) Random Glucose Calcium Phosphorus Magnesium Total Bilirubin AST ALT Alkaline Phosphatase Total Protein Albumin Globulin Albumin/Globulin Ratio Assessment & Plan (1) Respiratory failure Status: Acute (2) Pleural effusion Status: Acute (3) Pneumonia Status: Acute (4) Dyspnea Status: Acute Attending/Attestation - Attestation I have personally seen and examined this patient.: Yes I have fully participated in the care of the patient.: Yes I have reviewed all pertinent clinical information: Yes Notes (Text): 08/21/17 18:27 patient seen and examined. Patient transferred to ICU for respiratory distress, intubated and put on ventilatory support Triple-lumen catheter inserted IV antibiotics Nebulizer treatment continue hemodialysis
[2017-08-21 17:41] LABS: INR 1.5
[2017-08-21 18:09] LABS: ALB/GLOB RATIO 0.9 (1.0-2.1); CALCIUM 7.7 mg/dl (8.6-10.4); MAGNESIUM 2.2 mg/dL (1.6-2.3); PHOSPHOROUS 3.6 mg/dL (2.5-4.5); POTASSIUM 4.3 mmol/L (3.6-5.2); TOTAL PROTEIN 5.2 g/dL (6.3-8.3)
[2017-08-21 18:26] LABS: ABG ALLEN TEST POS; ABG MECHANICAL RATE 14; ARTERIAL BLOOD GAS MODE PRVC; ARTERIAL BLOOD HGB O2 SAT 96.6 % (95.0-98.0); ATERIAL BLOOD GAS PEEP 5; CARBOXYHEMOGLOBIN 1.3 % (0.5-1.5); DRAW SITE RRA; HHB 1.3 % (0.0-5.0); METHEMOGLOBIN 0.8 % (0.0-3.0)
--- NOTE | 2017-08-21 22:54 | CP.PCM.PN ---
Subjective - Date & Time of Evaluation Date of Evaluation: 08/21/17 Time of Evaluation: 10:00 - Subjective Subjective: patient seen and examined. Patient transferred to ICU for respiratory distress, intubated and put on ventilatory support Triple-lumen catheter inserted IV antibiotics Nebulizer treatment continue hemodialysis Objective - Vital Signs/Intake and Output Vital Signs (last 24 hours): Temp Pulse Resp BP Pulse Ox 98.2 F 91 H 16 104/58 L 100 08/21/17 20:00 08/21/17 22:11 08/21/17 22:11 08/21/17 22:11 08/21/17 22:11 Intake and Output: 08/21/17 08/22/17 18:59 06:59 Intake Total 280 200 Output Total 0 0 Balance 280 200 - Medications Medications: Current Medications Acetaminophen (Tylenol 325mg Tab) 650 mg PO Q4 PRN PRN Reason: Pain, moderate (4-7) Last Admin: 08/17/17 06:25 Dose: 650 mg Acetaminophen (Tylenol 325mg Tab) 650 mg PO Q6 PRN PRN Reason: FEVER ABOVE 101 OR NASCIMENTO Albuterol/Ipratropium (Duoneb 3 Mg/0.5 Mg (3 Ml) Ud) 3 ml INH RQ6 [facility] Last Admin: 08/21/17 13:19 Dose: 3 ml Ascorbic Acid (Vitamin C 500 Mg Tab) 500 mg PO DAILY [facility] Last Admin: 08/21/17 10:47 Dose: 500 mg Clopidogrel Bisulfate (Plavix) 75 mg PO DAILY [facility] Last Admin: 08/21/17 10:48 Dose: 75 mg Epoetin Jacobo (Procrit) 10,000 unit IV TTS [facility] Last Admin: 08/20/17 15:19 Dose: 10,000 unit Famotidine (Pepcid) 20 mg PO DAILY [facility] Last Admin: 08/21/17 10:47 Dose: 20 mg Finasteride (Proscar) 5 mg PO DAILY [facility] Last Admin: 08/21/17 10:48 Dose: 5 mg Hydralazine HCl (Apresoline) 10 mg PO BID [facility] Metronidazole (Flagyl) 500 mg in 100 mls @ 100 mls/hr IVPB Q8 [facility] Last Admin: 08/21/17 21:31 Dose: 100 mls/hr Vancomycin HCl 1 gm/ Sodium (Chloride) 250 mls @ 166.7 mls/hr IVPB TTS [facility] Levothyroxine Sodium (Synthroid) 25 mcg PO DAILY@0630 [facility] Last Admin: 08/21/17 05:30 Dose: 25 mcg Lorazepam (Ativan) 1 mg IVP Q2H PRN PRN Reason: Agitation Megestrol Acetate (Megace) 400 mg PO DAILY [facility] Last Admin: 08/21/17 10:47 Dose: 400 mg Metoprolol Tartrate (Lopressor) 25 mg PO BID [facility] Last Admin: 07/30/17 18:16 Dose: Not Given Midodrine (Proamatine) 5 mg PO TID [facility] Last Admin: 08/21/17 17:53 Dose: 5 mg Multivitamins (Hexavitamin) 1 tab PO DAILY [facility] Last Admin: 08/21/17 10:47 Dose: 1 tab Mupirocin (Bactroban Ointment) 0 gm TOP BID [facility] Last Admin: 08/21/17 17:28 Dose: 1 applic Paricalcitol (Zemplar) 2 mcg IV TTS [facility] Last Admin: 08/20/17 15:20 Dose: 2 mcg Tamsulosin HCl (Flomax) 0.4 mg PO DAILY [facility] Last Admin: 08/21/17 10:48 Dose: 0.4 mg - Labs Labs: 08/21/17 17:29 08/21/17 17:29 PT 17.1 SECONDS (9.7-12.2) H 08/21/17 17:29 INR 1.5 08/21/17 17:29 APTT 34 SECONDS (21-34) 08/21/17 17:29 - Constitutional Appears: No Acute Distress - Head Exam Head Exam: ATRAUMATIC, NORMAL INSPECTION, NORMOCEPHALIC - Eye Exam Eye Exam: EOMI, Normal appearance, PERRL Pupil Exam: NORMAL ACCOMODATION, PERRL - Respiratory Exam Respiratory Exam: Clear to Ausculation Bilateral, NORMAL BREATHING PATTERN - Cardiovascular Exam Cardiovascular Exam: REGULAR RHYTHM, +S1, +S2. absent: Murmur - GI/Abdominal Exam GI & Abdominal Exam: Soft, Normal Bowel Sounds. absent: Tenderness Assessment and Plan (1) Fever Status: Acute (2) Leukocytosis Status: Acute (3) UTI (urinary tract infection) Status: Acute (4) Leg ulcer Status: Acute (5) Toxic metabolic encephalopathy Status: Acute (6) Pleural effusion Status: Acute
--- NOTE | 2017-08-22 00:50 | PN ---
DATE: LOCATION: Room 357. REASON FOR FOLLOWUP: End-stage renal disease, for continuation of hemodialysis. HISTORY OF PRESENT ILLNESS: The patient is an 82-year-old elderly -I[place] male, with a past medical history significant for longstanding hypertension, coronary artery disease status post CABG, CHF, renal failure, who was recently admitted to half-way with altered mental status, worsening renal function, and UTI. Status post treatment for UTI and code sepsis, and also shock liver, renal failure, and worsening anemia status post transfusion. Also, the patient was started on hemodialysis three times a week in ICU. The patient is on BiPAP, not in distress. Opens eyes to verbal stimuli. Not following commands. The patient is on BiPap for the last 48 hours. PHYSICAL EXAMINATION: VITAL SIGNS: As follows: Blood pressure this morning 105/61, pulse 110, respirations 20, temperature 97.5. Height 6 feet 3 inches and weight is 183 pounds. GENERAL: The patient is an 82-year-old elderly -Iraqi male, moderate-built, moderate-nourished, not in distress. HEENT: Pupils normal, reactive to light and accommodation. Conjunctivae pink. Sclerae are anicteric. On BiPap machine. Trachea is midline. LUNGS: Symmetric on both sides. Bilateral breath sounds present. Occasional basal crackles present. CVS: Hamilton at the fifth intercostal space, midclavicular line. S1 and S2 audible. No murmur or gallop. ABDOMEN: Normal in appearance, status post right PEG tube placement. Abdomen is soft, tympanic. No guarding. No rigidity. No hepatosplenomegaly. ASSISTANT DIRECTOR: The patient is awake, on BiPAP machine. EXTREMITIES: No cyanosis, no clubbing. The patient has 1 to 2+ edema in both upper and lower extremities. CURRENT MEDICATIONS: Include as follows: Bactroban ointment topical b.i.d., DuoNeb inhaler, Flagyl 500 mg IV q.8h., Flomax 0.4 mg p.o. daily, multivitamin one tablet daily, Megace 400 mg p.o. daily, Pepcid 20 mg daily, Plavix 75 mg p.o. daily, midodrine 5 mg p.o. t.i.d., Procrit 10,000 units three times a week, Proscar 5 mg p.o. daily, Synthroid 25 mcg p.o. daily, Tylenol and vancomycin 1 g three times a week, vitamin C 500 mg p.o. daily, and Zemplar 2 mcg a week. LABORATORY DATA: Accu-Chek this morning 113, 102, and 108. No other labs are available this morning. ASSESSMENT AND PLAN: In summary, the patient is an 82-year-old elderly -Iraqi male with history of longstanding hypertension, coronary artery disease status post coronary artery bypass graft, renal failure, anemia, status post code sepsis, on BiPap machine. 1. End-stage renal disease. Continue hemodialysis three times a week on Saturday, , Saturday. 2. Anemia secondary to renal failure. Continue Epogen three times a week during dialysis. 3. Congestive heart failure. 4. Pneumonia. Continue IV antibiotics as per Infectious Disease recommendations. Overall prognosis is very poor. Thank you for allowing me to participate in your patient's care. Hernan Peterson MD
[2017-08-22] MEDS: Albuterol-Ipratrop 3 mg / 0.5 (3 ml) UD INH SCH ×4 (01:40→20:20)
[2017-08-22 05:42] LABS: ABG ALLEN TEST POS; ABG MECHANICAL RATE 14; ARTERIAL BLOOD GAS MODE PRVC; ARTERIAL BLOOD HGB O2 SAT 96.1 % (95.0-98.0); ATERIAL BLOOD GAS PEEP 5; CARBOXYHEMOGLOBIN 1.6 % (0.5-1.5); DRAW SITE R RAD; HHB 1.6 % (0.0-5.0); METHEMOGLOBIN 0.7 % (0.0-3.0)
[2017-08-22 06:36] LABS: BASO # 0.1 K/uL (0.0-0.2); BASO % 0.6 % (0.0-2.0); EOS # 0.3 K/uL (0.0-0.7); EOS % 3.5 % (0.0-4.0); HEMATOCRIT 32.6 % (35.0-51.0); LYMPH # 2.3 K/uL (1.0-4.3); LYMPH % 23.9 % (20.0-40.0); MEAN CELL VOLUME 89.7 fL (80.0-94.0); MEAN CORPUSCULAR HEMOGLOBIN 28.2 pg (27.0-31.0); MEAN CORPUSCULAR HGB CONC 31.4 g/dL (33.0-37.0); MONO # 0.8 K/uL (0.0-0.8); MONO % 8.1 % (0.0-10.0); NRBC % 0.1 % (0.0-2.0); RED CELL DISTRIBUTION WIDTH 21.4 % (11.5-14.5); WHITE BLOOD COUNT 9.8 K/uL (4.8-10.8)
[2017-08-22] MEDS: metroNIDAZOLE IV 500 mg/100 ml 500 MG/100 ML BAG IVPB SCH ×3 (06:40→21:50)
[2017-08-22 07:01] LABS: ALB/GLOB RATIO 0.7 (1.0-2.1); BILIRUBIN,TOTAL 0.7 mg/dL (0.2-1.3); CALCIUM 8.1 mg/dl (8.6-10.4); MAGNESIUM 2.3 mg/dL (1.6-2.3); PHOSPHOROUS 3.8 mg/dL (2.5-4.5); POTASSIUM 4.9 mmol/L (3.6-5.2); TOTAL PROTEIN 6.2 g/dL (6.3-8.3)
[2017-08-22] MEDS: Levothyroxine 25 MCG TAB PO SCH (07:14)
--- NOTE | 2017-08-22 08:42 | RAD ---
HISTORY: intubated COMPARISON: 08/21/2017 FINDINGS: LUNGS: Abnormal bibasilar opacity, slightly improved. PLEURA: Probable small left pleural effusion. No evidence of right pleural effusion. No pneumothorax. CARDIOVASCULAR: Mild cardiomegaly. ET tube and tunneled right central venous dialysis catheter unchanged. Sternotomy wires. OSSEOUS STRUCTURES: No significant abnormalities. VISUALIZED UPPER ABDOMEN: Normal. OTHER FINDINGS: None. IMPRESSION: Improving right basilar opacity. Improved left basilar opacity. Probable small left pleural effusion. Lines and tubes unchanged. .
[2017-08-22] MEDS: Multiple Vitamins Tab PO SCH (11:14)
[2017-08-22] MEDS: Megestrol Acetate 40 mg/ml Cup PO SCH (11:22)
[2017-08-22] MEDS: Epoetin Alfa 10,000 unit/ml Dialysis IV SCH (11:31)
[2017-08-22] MEDS: Paricalcitol 2 mcg/ml Inj IV SCH (11:32)
--- NOTE | 2017-08-22 13:54 | PN ---
DATE: LOCATION: ICU 9. SUBJECTIVE: This is an 82 years old male, seen and examined in rounds in the Intensive Care Unit, intubated to vent without reported active bleeding, somewhat tolerating PEG tube feeding well. The entire chart is reviewed including, but not limited to the most recent lab and radiology study results, current and the previous medication list, current and the previous medical events, and the most recent chest x-ray done today showed right basilar opacity with left basilar opacity with probable small left pleural effusion. LABORATORY DATA: Today's lab showed hemoglobin of 10.2, hematocrit 32.6 with normal white blood cells, but abnormal ABGs with BUN increased to 48, creatinine 2.6 with glucose of 103, but low calcium 8.1, low albumin 2.4. PHYSICAL EXAMINATION: GENERAL: An 82 years old male, intubated. VITAL SIGNS: Afebrile, sedated with heart rate of 98 and blood pressure of 104/64. HEENT: Showed pale, dry oral mucous membrane. Nonicteric sclerae. Patient is intubated to vent. LUNGS: Scattered crepitation, decreased air entry at bases bilaterally. HEART: Positive S1 and S2 with increased rate. ABDOMEN: Soft. Bowel sounds are present. PEG tube is in place without evidence of anterior abdominal wall cellulitis. EXTREMITIES: With lower extremities edematous changes. No clubbing or cyanosis. NEUROLOGIC: No reported new neurological deficits, sensory or motor. IMPRESSION: 1. Dysphagia, malnutrition, failure to thrive with hypoalbuminemia. 2. Status post percutaneous endoscopic gastrostomy insertion. 3. Pneumonia with respiratory failure, patient is intubated. 4. End-stage renal disease, on hemodialysis. 5. Known history of congestive heart failure. 6. Anemia, most likely secondary to above. 7. Known history of hypertension, coronary artery disease with status post coronary artery bypass surgery. 8. Status post code sepsis with possible septicemia. SUGGESTIONS: 1. Agree with your plan. 2. Subsequent increase of the rate of the feeding as tolerated. 3. Further recommendation to follow. Katia Pardo MD
--- NOTE | 2017-08-22 16:30 | CP.CCUPN ---
<Celestino Avalos - Last Filed: 08/22/17 16:20> CCU Subjective - Physician Review Subjective (Free Text): PGY1 ICU Progress Note for Dr. March Patient seen and examined at bedside this morning. No acute events overnight. Patient intubated. ROS unattainable. CCU Objective - Vital Signs / Intake & Output Vital Signs (Last 4 hours): Vital Signs Temp Pulse Pulse Resp BP BP Pulse Ox 08/22/17 15:35 106 H 13 95/58 L 08/22/17 15:00 104 H 10 L 100 08/22/17 14:53 105 H 10 L 104/63 08/22/17 14:00 100 H 19 100 08/22/17 13:35 104 H 16 100/58 L 100 08/22/17 13:30 104 H 14 93/45 L 100 08/22/17 13:27 101 H 17 93/45 L 100 08/22/17 13:12 100 H 16 92/52 L 08/22/17 13:03 102 H 15 97/56 L 100 08/22/17 13:00 97.6 F 100 H 99 H 15 97/58 L 100 08/22/17 12:57 99 H 14 85/52 L 100 08/22/17 12:42 102 H 15 96/53 L 08/22/17 12:30 101 H 15 93/55 L 100 08/22/17 12:27 103 H 14 93/55 L Intake and Output (Last 8hrs): Intake & Output 08/22/17 08/22/17 08/22/17 06:59 14:59 22:59 Intake Total 400 350 150 Output Total 0 0 0 Balance 400 350 150 Weight 187 lb Intake: Intake, IV Amount 100 Right Proximal Port 100 Internal Jugular Oral 100 Tube Feeding 400 250 50 Output: Urine 0 0 0 Condom 0 0 0 - Physical Exam Head: Positive for: Atraumatic, Normocephalic, Other Extroacular Muscles: Positive for: EOMI Mouth: Positive for: Moist Mucous Membranes Neck: Positive for: Other Respiratory/Chest: Positive for: Good Air Exchange, Rhonchi. Negative for: Accessory Muscle Use Abdomen: Negative for: Tenderness, Distention Lower Extremity: Positive for: Edema, Other (dressings clean/ dry/ intact) Skin: Positive for: Warm, Normal Color, Other (right arm, hyperpigmentation with blister resolving on right arm, BP cuff on left arm, right arm swelling improved) Psychiatric: Positive for: Alert - Medications Active Medications: Active Medications Generic Name Dose Route Start Last Admin Trade Name Freq PRN Reason Stop Dose Admin Acetaminophen 650 mg 08/10/17 14:59 08/17/17 06:25 Tylenol 325mg Tab PO 650 mg Q4 PRN Administration Pain, moderate (4-7) Acetaminophen 650 mg 08/10/17 15:15 Tylenol 325mg Tab PO Q6 PRN FEVER ABOVE 101 OR NASCIMENTO Albuterol/Ipratropium 3 ml 08/19/17 11:30 08/22/17 14:18 Duoneb 3 Mg/0.5 Mg (3 Ml) Ud INH 3 ml RQ6 DAWIT Administration Ascorbic Acid 500 mg 08/02/17 10:15 08/22/17 11:10 Vitamin C 500 Mg Tab PO 500 mg DAILY DAWIT Administration Clopidogrel Bisulfate 75 mg 07/25/17 10:00 08/22/17 11:12 Plavix PO 75 mg DAILY DAWIT Administration Epoetin Jacobo 10,000 unit 08/10/17 10:00 08/22/17 11:31 Procrit IV 10,000 unit TTS DAWIT Administration Famotidine 20 mg 08/02/17 10:00 08/22/17 11:13 Pepcid PO 20 mg DAILY DAWIT Administration Finasteride 5 mg 07/25/17 10:00 08/22/17 11:11 Proscar PO 5 mg DAILY DAWIT Administration Heparin Sodium (Porcine) 5,000 units 08/22/17 14:00 08/22/17 14:41 Heparin SC 5,000 units Q8 DAWIT Administration Hydralazine HCl 10 mg 08/17/17 14:44 Apresoline PO BID DAWIT Metronidazole 500 mg in 100 mls @ 100 mls/hr 08/16/17 09:45 08/22/17 14:42 Flagyl IVPB 100 mls/hr Q8 DAWIT Administration Vancomycin HCl 1 gm/ Sodium 250 mls @ 166.7 mls/hr 08/22/17 18:00 Chloride IVPB TTS DAWIT Levothyroxine Sodium 25 mcg 07/25/17 06:30 08/22/17 07:14 Synthroid PO 25 mcg DAILY@0630 DAWIT Administration Lorazepam 1 mg 08/21/17 18:32 Ativan IVP Q2H PRN Agitation Megestrol Acetate 400 mg 08/13/17 10:00 08/22/17 11:22 Megace PO 400 mg DAILY DAWIT Administration Metoprolol Tartrate 25 mg 07/26/17 10:30 07/30/17 18:16 Lopressor PO Not Given BID DAWIT Midodrine 5 mg 08/01/17 14:00 08/22/17 15:57 Proamatine PO Not Given TID DAWIT Multivitamins 1 tab 08/02/17 10:15 08/22/17 11:14 Hexavitamin PO 1 tab DAILY DAWIT Administration Mupirocin 0 gm 08/13/17 18:00 08/22/17 11:16 Bactroban Ointment TOP Not Given BID [facility] Paricalcitol 2 mcg 08/06/17 10:00 08/22/17 11:32 Zemplar IV 2 mcg TTS DAWIT Administration Tamsulosin HCl 0.4 mg 07/25/17 10:00 08/22/17 11:14 Flomax PO 0.4 mg DAILY DAWIT Administration - Patient Studies Lab Studies: Microbiology Studies 08/21/17 14:29 MRSA Culture (Admit) - Final Naris MRSA NOT DETECTED Lab Studies 08/22/17 08/22/17 08/22/17 Range/Units 12:23 06:26 06:26 WBC 9.8 (4.8-10.8) K/uL RBC 3.63 L (4.40-5.90) Mil/uL Hgb 10.2 L (12.0-18.0) g/dL Hct 32.6 L (35.0-51.0) % MCV 89.7 (80.0-94.0) fL MCH 28.2 (27.0-31.0) pg MCHC 31.4 L (33.0-37.0) g/dL RDW 21.4 H (11.5-14.5) % Plt Count 174 (130-400) K/uL MPV 9.0 (7.2-11.7) fL Neut % (Auto) 63.9 (50.0-75.0) % Lymph % (Auto) 23.9 (20.0-40.0) % [place] % (Auto) 8.1 (0.0-10.0) % Eos % (Auto) 3.5 (0.0-4.0) % Baso % (Auto) 0.6 (0.0-2.0) % Neut # 6.3 (1.8-7.0) K/uL Lymph # 2.3 (1.0-4.3) K/uL [place] # 0.8 (0.0-0.8) K/uL Eos # 0.3 (0.0-0.7) K/uL Baso # 0.1 (0.0-0.2) K/uL PT (9.7-12.2) SECONDS INR APTT (21-34) SECONDS Puncture Site pCO2 (35-45) mm/Hg pO2 (80-100) mm/Hg HCO3 (21-28) mmol/L ABG pH (7.35-7.45) ABG Total CO2 (22-28) mmol/L ABG O2 Saturation (95-98) % ABG Base Excess (-2.0-3.0) mmol/L ABG Hemoglobin (11.7-17.4) g/dL ABG Carboxyhemoglobin (0.5-1.5) % POC ABG HHb (Measured) (0.0-5.0) % ABG Methemoglobin (0.0-3.0) % Elder Test A-a O2 Difference mm/Hg Respiratory Index Hgb O2 Saturation (95.0-98.0) % Vent Mode Mechanical Rate FiO2 % Tidal Volume PEEP Sodium 138 (132-148) mmol/L Potassium 4.9 (3.6-5.2) mmol/L Chloride 102 (98-107) mmol/L Carbon Dioxide 27 (22-30) mmol/L Anion Gap 15 (10-20) BUN 48 H (9-20) mg/dL Creatinine 2.6 H (0.8-1.5) mg/dL Est GFR ( Amer) 29 Est GFR (Non-Af Amer) 24 POC Glucose (mg/dL) 114 H (65-110) mg/dL Random Glucose 73 L (75-110) mg/dL Calcium 8.1 L (8.6-10.4) mg/dl Phosphorus 3.8 (2.5-4.5) mg/dL Magnesium 2.3 (1.6-2.3) mg/dL Total Bilirubin 0.7 (0.2-1.3) mg/dL AST 31 (17-59) U/L ALT 45 (21-72) U/L Alkaline Phosphatase 112 (38-126) U/L Total Protein 6.2 L (6.3-8.3) g/dL Albumin 2.4 L (3.5-5.0) g/dL Globulin 3.7 (2.2-3.9) gm/dL Albumin/Globulin Ratio 0.7 L (1.0-2.1) 08/22/17 08/22/17 08/22/17 Range/Units 05:44 05:27 00:29 WBC (4.8-10.8) K/uL RBC (4.40-5.90) Mil/uL Hgb (12.0-18.0) g/dL Hct (35.0-51.0) % MCV (80.0-94.0) fL MCH (27.0-31.0) pg MCHC (33.0-37.0) g/dL RDW (11.5-14.5) % Plt Count (130-400) K/uL MPV (7.2-11.7) fL Neut % (Auto) (50.0-75.0) % Lymph % (Auto) (20.0-40.0) % [place] % (Auto) (0.0-10.0) % Eos % (Auto) (0.0-4.0) % Baso % (Auto) (0.0-2.0) % Neut # (1.8-7.0) K/uL Lymph # (1.0-4.3) K/uL [place] # (0.0-0.8) K/uL Eos # (0.0-0.7) K/uL Baso # (0.0-0.2) K/uL PT (9.7-12.2) SECONDS INR APTT (21-34) SECONDS Puncture Site R rad pCO2 40 (35-45) mm/Hg pO2 122 H (80-100) mm/Hg HCO3 28.8 H (21-28) mmol/L ABG pH 7.47 H (7.35-7.45) ABG Total CO2 30.3 H (22-28) mmol/L ABG O2 Saturation 98.4 H (95-98) % ABG Base Excess 5.0 H (-2.0-3.0) mmol/L ABG Hemoglobin 10.4 L (11.7-17.4) g/dL ABG Carboxyhemoglobin 1.6 H (0.5-1.5) % POC ABG HHb (Measured) 1.6 (0.0-5.0) % ABG Methemoglobin 0.7 (0.0-3.0) % Elder Test Pos A-a O2 Difference 185.0 mm/Hg Respiratory Index 1.5 Hgb O2 Saturation 96.1 (95.0-98.0) % Vent Mode Prvc Mechanical Rate 14 FiO2 50.0 % Tidal Volume 500 PEEP 5 Sodium (132-148) mmol/L Potassium (3.6-5.2) mmol/L Chloride (98-107) mmol/L Carbon Dioxide (22-30) mmol/L Anion Gap (10-20) BUN (9-20) mg/dL Creatinine (0.8-1.5) mg/dL Est GFR ( Amer) Est GFR (Non-Af Amer) POC Glucose (mg/dL) 103 135 H (65-110) mg/dL Random Glucose (75-110) mg/dL Calcium (8.6-10.4) mg/dl Phosphorus (2.5-4.5) mg/dL Magnesium (1.6-2.3) mg/dL Total Bilirubin (0.2-1.3) mg/dL AST (17-59) U/L ALT (21-72) U/L Alkaline Phosphatase (38-126) U/L Total Protein (6.3-8.3) g/dL Albumin (3.5-5.0) g/dL Globulin (2.2-3.9) gm/dL Albumin/Globulin Ratio (1.0-2.1) 08/21/17 08/21/17 08/21/17 Range/Units 18:20 18:02 17:29 WBC (4.8-10.8) K/uL RBC (4.40-5.90) Mil/uL Hgb (12.0-18.0) g/dL Hct (35.0-51.0) % MCV (80.0-94.0) fL MCH (27.0-31.0) pg MCHC (33.0-37.0) g/dL RDW (11.5-14.5) % Plt Count (130-400) K/uL MPV (7.2-11.7) fL Neut % (Auto) (50.0-75.0) % Lymph % (Auto) (20.0-40.0) % [place] % (Auto) (0.0-10.0) % Eos % (Auto) (0.0-4.0) % Baso % (Auto) (0.0-2.0) % Neut # (1.8-7.0) K/uL Lymph # (1.0-4.3) K/uL [place] # (0.0-0.8) K/uL Eos # (0.0-0.7) K/uL Baso # (0.0-0.2) K/uL PT (9.7-12.2) SECONDS INR APTT (21-34) SECONDS Puncture Site Rra pCO2 38 (35-45) mm/Hg pO2 252 H (80-100) mm/Hg HCO3 29.6 H (21-28) mmol/L ABG pH 7.50 H (7.35-7.45) ABG Total CO2 30.8 H (22-28) mmol/L ABG O2 Saturation 98.7 H (95-98) % ABG Base Excess 6.0 H (-2.0-3.0) mmol/L ABG Hemoglobin 10.0 L (11.7-17.4) g/dL ABG Carboxyhemoglobin 1.3 (0.5-1.5) % POC ABG HHb (Measured) 1.3 (0.0-5.0) % ABG Methemoglobin 0.8 (0.0-3.0) % Elder Test Pos A-a O2 Difference 414.0 mm/Hg Respiratory Index 1.6 Hgb O2 Saturation 96.6 (95.0-98.0) % Vent Mode Prvc Mechanical Rate 14 FiO2 100.0 % Tidal Volume 500 PEEP 5 Sodium 131 L (132-148) mmol/L Potassium 4.3 (3.6-5.2) mmol/L Chloride 100 (98-107) mmol/L Carbon Dioxide 28 (22-30) mmol/L Anion Gap 8 L (10-20) BUN 44 H (9-20) mg/dL Creatinine 2.3 H (0.8-1.5) mg/dL Est GFR ( Amer) 33 Est GFR (Non-Af Amer) 27 POC Glucose (mg/dL) 101 (65-110) mg/dL Random Glucose 79 (75-110) mg/dL Calcium 7.7 L (8.6-10.4) mg/dl Phosphorus 3.6 (2.5-4.5) mg/dL Magnesium 2.2 (1.6-2.3) mg/dL Total Bilirubin 1.0 (0.2-1.3) mg/dL AST 29 (17-59) U/L ALT 36 (21-72) U/L Alkaline Phosphatase 109 (38-126) U/L Total Protein 5.2 L (6.3-8.3) g/dL Albumin 2.4 L (3.5-5.0) g/dL Globulin 2.8 (2.2-3.9) gm/dL Albumin/Globulin Ratio 0.9 L (1.0-2.1) 08/21/17 08/21/17 Range/Units 17:29 17:29 WBC 9.1 (4.8-10.8) K/uL RBC 3.45 L (4.40-5.90) Mil/uL Hgb 9.7 L (12.0-18.0) g/dL Hct 31.2 L (35.0-51.0) % MCV 90.3 (80.0-94.0) fL MCH 28.2 (27.0-31.0) pg MCHC 31.3 L (33.0-37.0) g/dL RDW 21.4 H (11.5-14.5) % Plt Count 176 (130-400) K/uL MPV 8.6 (7.2-11.7) fL Neut % (Auto) 69.4 (50.0-75.0) % Lymph % (Auto) 18.7 L (20.0-40.0) % [place] % (Auto) 7.9 (0.0-10.0) % Eos % (Auto) 3.4 (0.0-4.0) % Baso % (Auto) 0.6 (0.0-2.0) % Neut # 6.3 (1.8-7.0) K/uL Lymph # 1.7 (1.0-4.3) K/uL [place] # 0.7 (0.0-0.8) K/uL Eos # 0.3 (0.0-0.7) K/uL Baso # 0.1 (0.0-0.2) K/uL PT 17.1 H (9.7-12.2) SECONDS INR 1.5 APTT 34 (21-34) SECONDS Puncture Site pCO2 (35-45) mm/Hg pO2 (80-100) mm/Hg HCO3 (21-28) mmol/L ABG pH (7.35-7.45) ABG Total CO2 (22-28) mmol/L ABG O2 Saturation (95-98) % ABG Base Excess (-2.0-3.0) mmol/L ABG Hemoglobin (11.7-17.4) g/dL ABG Carboxyhemoglobin (0.5-1.5) % POC ABG HHb (Measured) (0.0-5.0) % ABG Methemoglobin (0.0-3.0) % Elder Test A-a O2 Difference mm/Hg Respiratory Index Hgb O2 Saturation (95.0-98.0) % Vent Mode Mechanical Rate FiO2 % Tidal Volume PEEP Sodium (132-148) mmol/L Potassium (3.6-5.2) mmol/L Chloride (98-107) mmol/L Carbon Dioxide (22-30) mmol/L Anion Gap (10-20) BUN (9-20) mg/dL Creatinine (0.8-1.5) mg/dL Est GFR ( Amer) Est GFR (Non-Af Amer) POC Glucose (mg/dL) (65-110) mg/dL Random Glucose (75-110) mg/dL Calcium (8.6-10.4) mg/dl Phosphorus (2.5-4.5) mg/dL Magnesium (1.6-2.3) mg/dL Total Bilirubin (0.2-1.3) mg/dL AST (17-59) U/L ALT (21-72) U/L Alkaline Phosphatase (38-126) U/L Total Protein (6.3-8.3) g/dL Albumin (3.5-5.0) g/dL Globulin (2.2-3.9) gm/dL Albumin/Globulin Ratio (1.0-2.1) Laboratory Results - last 24 hr 08/21/17 08/21/17 08/21/17 17:29 17:29 17:29 WBC 9.1 RBC 3.45 L Hgb 9.7 L Hct 31.2 L MCV 90.3 MCH 28.2 MCHC 31.3 L RDW 21.4 H Plt Count 176 MPV 8.6 Neut % (Auto) 69.4 Lymph % (Auto) 18.7 L [place] % (Auto) 7.9 Eos % (Auto) 3.4 Baso % (Auto) 0.6 Neut # 6.3 Lymph # 1.7 [place] # 0.7 Eos # 0.3 Baso # 0.1 PT 17.1 H INR 1.5 APTT 34 Puncture Site pCO2 pO2 HCO3 ABG pH ABG Total CO2 ABG O2 Saturation ABG Base Excess ABG Hemoglobin ABG Carboxyhemoglobin POC ABG HHb (Measured) ABG Methemoglobin Elder Test A-a O2 Difference Respiratory Index Hgb O2 Saturation Vent Mode Mechanical Rate FiO2 Tidal Volume PEEP Sodium 131 L Potassium 4.3 Chloride 100 Carbon Dioxide 28 Anion Gap 8 L BUN 44 H Creatinine 2.3 H Est GFR ( Amer) 33 Est GFR (Non-Af Amer) 27 POC Glucose (mg/dL) Random Glucose 79 Calcium 7.7 L Phosphorus 3.6 Magnesium 2.2 Total Bilirubin 1.0 AST 29 ALT 36 Alkaline Phosphatase 109 Total Protein 5.2 L Albumin 2.4 L Globulin 2.8 Albumin/Globulin Ratio 0.9 L 08/21/17 08/21/17 08/22/17 18:02 18:20 00:29 WBC RBC Hgb Hct MCV MCH MCHC RDW Plt Count MPV Neut % (Auto) Lymph % (Auto) [place] % (Auto) Eos % (Auto) Baso % (Auto) Neut # Lymph # [place] # Eos # Baso # PT INR APTT Puncture Site Rra pCO2 38 pO2 252 H HCO3 29.6 H ABG pH 7.50 H ABG Total CO2 30.8 H ABG O2 Saturation 98.7 H ABG Base Excess 6.0 H ABG Hemoglobin 10.0 L ABG Carboxyhemoglobin 1.3 POC ABG HHb (Measured) 1.3 ABG Methemoglobin 0.8 Elder Test Pos A-a O2 Difference 414.0 Respiratory Index 1.6 Hgb O2 Saturation 96.6 Vent Mode Prvc Mechanical Rate 14 FiO2 100.0 Tidal Volume 500 PEEP 5 Sodium Potassium Chloride Carbon Dioxide Anion Gap BUN Creatinine Est GFR ( Amer) Est GFR (Non-Af Amer) POC Glucose (mg/dL) 101 135 H Random Glucose Calcium Phosphorus Magnesium Total Bilirubin AST ALT Alkaline Phosphatase Total Protein Albumin Globulin Albumin/Globulin Ratio 08/22/17 08/22/17 08/22/17 05:27 05:44 06:26 WBC 9.8 RBC 3.63 L Hgb 10.2 L Hct 32.6 L MCV 89.7 MCH 28.2 MCHC 31.4 L RDW 21.4 H Plt Count 174 MPV 9.0 Neut % (Auto) 63.9 Lymph % (Auto) 23.9 [place] % (Auto) 8.1 Eos % (Auto) 3.5 Baso % (Auto) 0.6 Neut # 6.3 Lymph # 2.3 [place] # 0.8 Eos # 0.3 Baso # 0.1 PT INR APTT Puncture Site R rad pCO2 40 pO2 122 H HCO3 28.8 H ABG pH 7.47 H ABG Total CO2 30.3 H ABG O2 Saturation 98.4 H ABG Base Excess 5.0 H ABG Hemoglobin 10.4 L ABG Carboxyhemoglobin 1.6 H POC ABG HHb (Measured) 1.6 ABG Methemoglobin 0.7 Eledr Test Pos A-a O2 Difference 185.0 Respiratory Index 1.5 Hgb O2 Saturation 96.1 Vent Mode Prvc Mechanical Rate 14 FiO2 50.0 Tidal Volume 500 PEEP 5 Sodium Potassium Chloride Carbon Dioxide Anion Gap BUN Creatinine Est GFR ( Amer) Est GFR (Non-Af Amer) POC Glucose (mg/dL) 103 Random Glucose Calcium Phosphorus Magnesium Total Bilirubin AST ALT Alkaline Phosphatase Total Protein Albumin Globulin Albumin/Globulin Ratio 08/22/17 08/22/17 06:26 12:23 WBC RBC Hgb Hct MCV MCH MCHC RDW Plt Count MPV Neut % (Auto) Lymph % (Auto) [place] % (Auto) Eos % (Auto) Baso % (Auto) Neut # Lymph # [place] # Eos # Baso # PT INR APTT Puncture Site pCO2 pO2 HCO3 ABG pH ABG Total CO2 ABG O2 Saturation ABG Base Excess ABG Hemoglobin ABG Carboxyhemoglobin POC ABG HHb (Measured) ABG Methemoglobin Elder Test A-a O2 Difference Respiratory Index Hgb O2 Saturation Vent Mode Mechanical Rate FiO2 Tidal Volume PEEP Sodium 138 Potassium 4.9 Chloride 102 Carbon Dioxide 27 Anion Gap 15 BUN 48 H Creatinine 2.6 H Est GFR ( Amer) 29 Est GFR (Non-Af Amer) 24 POC Glucose (mg/dL) 114 H Random Glucose 73 L Calcium 8.1 L Phosphorus 3.8 Magnesium 2.3 Total Bilirubin 0.7 AST 31 ALT 45 Alkaline Phosphatase 112 Total Protein 6.2 L Albumin 2.4 L Globulin 3.7 Albumin/Globulin Ratio 0.7 L Fingerstick Blood Sugar Results: 114 Review of Systems - Review of Systems Systems not reviewed;Unavailable: Intubated Critical Care Progress Note - Nutrition Nutrition: Nutrition Category Date Time Status NPO Diet [DIET] Diets 08/16/17 Breakfast Active Assessment/Plan - Assessment and Plan (Free Text) Assessment: 82 y/o M with PMHx of CAD, HTN, CKD, dementia and obstructive uropathy requiring wise admitted 07/24 with lethargy and fever from the [facility]. Patient was transferred to the ICU on 08/21 due to respiratory distress. Plan: Respiratory: Patient intubated due to respiratory failure CXR 08/22 - Improving right basilar opacity. Improved left basilar opacity. Probable small left pleural effusion. Lines and tubes unchanged. COPD Pneumonia Pleural effusion b/l s/p thoracentesis ABG - pCO2 40/pO2 122/HCO3 28.8/pH 7.47 - on vent settings of 500/50/14/5 - Decrease FiO2 to 40% Vanco 1gm IVPB TTS Duoneb 3ml INH RQ6 Ativan 1mg IVP q2h CV: CAD Plavix 75mg PO daily Renal: Hemodialysis TTS Paricalcitol 2mcg IV TTS Midodrine 5mg PO TID : Finasteride 5mg PO daily Flomax .4mg PO daily Prophylactic Care: Heparin 5000u SC q8h Case discussed with Dr. Anca Avalos PGY1 <James March - Last Filed: 08/22/17 18:46> CCU Objective - Vital Signs / Intake & Output Vital Signs (Last 4 hours): Vital Signs Pulse Resp BP Pulse Ox 08/22/17 17:00 111 H 15 100 08/22/17 16:35 102 H 15 99/56 L 100 08/22/17 16:00 103 H 12 100 08/22/17 15:35 106 H 13 95/58 L 08/22/17 15:00 104 H 10 L 100 08/22/17 14:53 105 H 10 L 104/63 Intake and Output (Last 8hrs): Intake & Output 08/22/17 08/22/17 08/22/17 06:59 14:59 22:59 Intake Total 400 350 250 Output Total 0 0 0 Balance 400 350 250 Weight 187 lb Intake: Intake, IV Amount 100 Right Proximal Port 100 Internal Jugular Oral 100 Tube Feeding 400 250 150 Output: Urine 0 0 0 Condom 0 0 0 - Medications Active Medications: Active Medications Generic Name Dose Route Start Last Admin Trade Name Freq PRN Reason Stop Dose Admin Acetaminophen 650 mg 08/10/17 14:59 08/17/17 06:25 Tylenol 325mg Tab PO 650 mg Q4 PRN Administration Pain, moderate (4-7) Acetaminophen 650 mg 08/10/17 15:15 Tylenol 325mg Tab PO Q6 PRN FEVER ABOVE 101 OR NASCIMENTO Albuterol/Ipratropium 3 ml 08/19/17 11:30 08/22/17 14:18 Duoneb 3 Mg/0.5 Mg (3 Ml) Ud INH 3 ml RQ6 DAWIT Administration Ascorbic Acid 500 mg 08/02/17 10:15 08/22/17 11:10 Vitamin C 500 Mg Tab PO 500 mg DAILY DAWIT Administration Clopidogrel Bisulfate 75 mg 07/25/17 10:00 08/22/17 11:12 Plavix PO 75 mg DAILY DAWIT Administration Epoetin Jacobo 10,000 unit 08/10/17 10:00 08/22/17 11:31 Procrit IV 10,000 unit TTS DAWIT Administration Famotidine 20 mg 08/02/17 10:00 08/22/17 11:13 Pepcid PO 20 mg DAILY DAWIT Administration Finasteride 5 mg 07/25/17 10:00 08/22/17 11:11 Proscar PO 5 mg DAILY DAWIT Administration Heparin Sodium (Porcine) 5,000 units 08/22/17 14:00 08/22/17 14:41 Heparin SC 5,000 units Q8 DAWIT Administration Hydralazine HCl 10 mg 08/17/17 14:44 Apresoline PO BID [facility] Metronidazole 500 mg in 100 mls @ 100 mls/hr 08/16/17 09:45 08/22/17 14:42 Flagyl IVPB 100 mls/hr Q8 DAWIT Administration Vancomycin HCl 1 gm/ Sodium 250 mls @ 166.7 mls/hr 08/22/17 18:00 08/22/17 18 :19 Chloride IVPB 166.7 mls/hr TTS DAWIT Administration Levothyroxine Sodium 25 mcg 07/25/17 06:30 08/22/17 07:14 Synthroid PO 25 mcg DAILY@0630 DAWIT Administration Lorazepam 1 mg 08/21/17 18:32 Ativan IVP Q2H PRN Agitation Megestrol Acetate 400 mg 08/13/17 10:00 08/22/17 11:22 Megace PO 400 mg DAILY [facility] Administration Metoprolol Tartrate 25 mg 07/26/17 10:30 07/30/17 18:16 Lopressor PO Not Given BID [facility] Midodrine 5 mg 08/01/17 14:00 08/22/17 18:26 Proamatine PO 5 mg TID DAWIT Administration Multivitamins 1 tab 08/02/17 10:15 08/22/17 11:14 Hexavitamin PO 1 tab DAILY [facility] Administration Mupirocin 0 gm 08/13/17 18:00 08/22/17 18:27 Bactroban Ointment TOP Not Given BID [facility] Paricalcitol 2 mcg 08/06/17 10:00 08/22/17 11:32 Zemplar IV 2 mcg TTS [facility] Administration Tamsulosin HCl 0.4 mg 07/25/17 10:00 08/22/17 11:14 Flomax PO 0.4 mg DAILY DAWIT Administration - Patient Studies Lab Studies: Microbiology Studies 08/21/17 14:29 MRSA Culture (Admit) - Final Naris MRSA NOT DETECTED Lab Studies 08/22/17 08/22/17 08/22/17 Range/Units 17:43 12:23 06:26 WBC (4.8-10.8) K/uL RBC (4.40-5.90) Mil/uL Hgb (12.0-18.0) g/dL Hct (35.0-51.0) % MCV (80.0-94.0) fL MCH (27.0-31.0) pg MCHC (33.0-37.0) g/dL RDW (11.5-14.5) % Plt Count (130-400) K/uL MPV (7.2-11.7) fL Neut % (Auto) (50.0-75.0) % Lymph % (Auto) (20.0-40.0) % [place] % (Auto) (0.0-10.0) % Eos % (Auto) (0.0-4.0) % Baso % (Auto) (0.0-2.0) % Neut # (1.8-7.0) K/uL Lymph # (1.0-4.3) K/uL [place] # (0.0-0.8) K/uL Eos # (0.0-0.7) K/uL Baso # (0.0-0.2) K/uL Puncture Site pCO2 (35-45) mm/Hg pO2 (80-100) mm/Hg HCO3 (21-28) mmol/L ABG pH (7.35-7.45) ABG Total CO2 (22-28) mmol/L ABG O2 Saturation (95-98) % ABG Base Excess (-2.0-3.0) mmol/L ABG Hemoglobin (11.7-17.4) g/dL ABG Carboxyhemoglobin (0.5-1.5) % POC ABG HHb (Measured) (0.0-5.0) % ABG Methemoglobin (0.0-3.0) % Elder Test A-a O2 Difference mm/Hg Respiratory Index Hgb O2 Saturation (95.0-98.0) % Vent Mode Mechanical Rate FiO2 % Tidal Volume PEEP Sodium 138 (132-148) mmol/L Potassium 4.9 (3.6-5.2) mmol/L Chloride 102 (98-107) mmol/L Carbon Dioxide 27 (22-30) mmol/L Anion Gap 15 (10-20) BUN 48 H (9-20) mg/dL Creatinine 2.6 H (0.8-1.5) mg/dL Est GFR ( Amer) 29 Est GFR (Non-Af Amer) 24 POC Glucose (mg/dL) 121 H 114 H (65-110) mg/dL Random Glucose 73 L (75-110) mg/dL Calcium 8.1 L (8.6-10.4) mg/dl Phosphorus 3.8 (2.5-4.5) mg/dL Magnesium 2.3 (1.6-2.3) mg/dL Total Bilirubin 0.7 (0.2-1.3) mg/dL AST 31 (17-59) U/L ALT 45 (21-72) U/L Alkaline Phosphatase 112 (38-126) U/L Total Protein 6.2 L (6.3-8.3) g/dL Albumin 2.4 L (3.5-5.0) g/dL Globulin 3.7 (2.2-3.9) gm/dL Albumin/Globulin Ratio 0.7 L (1.0-2.1) 08/22/17 08/22/17 08/22/17 Range/Units 06:26 05:44 05:27 WBC 9.8 (4.8-10.8) K/uL RBC 3.63 L (4.40-5.90) Mil/uL Hgb 10.2 L (12.0-18.0) g/dL Hct 32.6 L (35.0-51.0) % MCV 89.7 (80.0-94.0) fL MCH 28.2 (27.0-31.0) pg MCHC 31.4 L (33.0-37.0) g/dL RDW 21.4 H (11.5-14.5) % Plt Count 174 (130-400) K/uL MPV 9.0 (7.2-11.7) fL Neut % (Auto) 63.9 (50.0-75.0) % Lymph % (Auto) 23.9 (20.0-40.0) % [place] % (Auto) 8.1 (0.0-10.0) % Eos % (Auto) 3.5 (0.0-4.0) % Baso % (Auto) 0.6 (0.0-2.0) % Neut # 6.3 (1.8-7.0) K/uL Lymph # 2.3 (1.0-4.3) K/uL [place] # 0.8 (0.0-0.8) K/uL Eos # 0.3 (0.0-0.7) K/uL Baso # 0.1 (0.0-0.2) K/uL Puncture Site R rad pCO2 40 (35-45) mm/Hg pO2 122 H (80-100) mm/Hg HCO3 28.8 H (21-28) mmol/L ABG pH 7.47 H (7.35-7.45) ABG Total CO2 30.3 H (22-28) mmol/L ABG O2 Saturation 98.4 H (95-98) % ABG Base Excess 5.0 H (-2.0-3.0) mmol/L ABG Hemoglobin 10.4 L (11.7-17.4) g/dL ABG Carboxyhemoglobin 1.6 H (0.5-1.5) % POC ABG HHb (Measured) 1.6 (0.0-5.0) % ABG Methemoglobin 0.7 (0.0-3.0) % Elder Test Pos A-a O2 Difference 185.0 mm/Hg Respiratory Index 1.5 Hgb O2 Saturation 96.1 (95.0-98.0) % Vent Mode Prvc Mechanical Rate 14 FiO2 50.0 % Tidal Volume 500 PEEP 5 Sodium (132-148) mmol/L Potassium (3.6-5.2) mmol/L Chloride (98-107) mmol/L Carbon Dioxide (22-30) mmol/L Anion Gap (10-20) BUN (9-20) mg/dL Creatinine (0.8-1.5) mg/dL Est GFR ( Amer) Est GFR (Non-Af Amer) POC Glucose (mg/dL) 103 (65-110) mg/dL Random Glucose (75-110) mg/dL Calcium (8.6-10.4) mg/dl Phosphorus (2.5-4.5) mg/dL Magnesium (1.6-2.3) mg/dL Total Bilirubin (0.2-1.3) mg/dL AST (17-59) U/L ALT (21-72) U/L Alkaline Phosphatase (38-126) U/L Total Protein (6.3-8.3) g/dL Albumin (3.5-5.0) g/dL Globulin (2.2-3.9) gm/dL Albumin/Globulin Ratio (1.0-2.1) 08/22/17 Range/Units 00:29 WBC (4.8-10.8) K/uL RBC (4.40-5.90) Mil/uL Hgb (12.0-18.0) g/dL Hct (35.0-51.0) % MCV (80.0-94.0) fL MCH (27.0-31.0) pg MCHC (33.0-37.0) g/dL RDW (11.5-14.5) % Plt Count (130-400) K/uL MPV (7.2-11.7) fL Neut % (Auto) (50.0-75.0) % Lymph % (Auto) (20.0-40.0) % [place] % (Auto) (0.0-10.0) % Eos % (Auto) (0.0-4.0) % Baso % (Auto) (0.0-2.0) % Neut # (1.8-7.0) K/uL Lymph # (1.0-4.3) K/uL [place] # (0.0-0.8) K/uL Eos # (0.0-0.7) K/uL Baso # (0.0-0.2) K/uL Puncture Site pCO2 (35-45) mm/Hg pO2 (80-100) mm/Hg HCO3 (21-28) mmol/L ABG pH (7.35-7.45) ABG Total CO2 (22-28) mmol/L ABG O2 Saturation (95-98) % ABG Base Excess (-2.0-3.0) mmol/L ABG Hemoglobin (11.7-17.4) g/dL ABG Carboxyhemoglobin (0.5-1.5) % POC ABG HHb (Measured) (0.0-5.0) % ABG Methemoglobin (0.0-3.0) % Elder Test A-a O2 Difference mm/Hg Respiratory Index Hgb O2 Saturation (95.0-98.0) % Vent Mode Mechanical Rate FiO2 % Tidal Volume PEEP Sodium (132-148) mmol/L Potassium (3.6-5.2) mmol/L Chloride (98-107) mmol/L Carbon Dioxide (22-30) mmol/L Anion Gap (10-20) BUN (9-20) mg/dL Creatinine (0.8-1.5) mg/dL Est GFR ( Amer) Est GFR (Non-Af Amer) POC Glucose (mg/dL) 135 H (65-110) mg/dL Random Glucose (75-110) mg/dL Calcium (8.6-10.4) mg/dl Phosphorus (2.5-4.5) mg/dL Magnesium (1.6-2.3) mg/dL Total Bilirubin (0.2-1.3) mg/dL AST (17-59) U/L ALT (21-72) U/L Alkaline Phosphatase (38-126) U/L Total Protein (6.3-8.3) g/dL Albumin (3.5-5.0) g/dL Globulin (2.2-3.9) gm/dL Albumin/Globulin Ratio (1.0-2.1) Laboratory Results - last 24 hr 08/22/17 08/22/17 08/22/17 00:29 05:27 05:44 WBC RBC Hgb Hct MCV MCH MCHC RDW Plt Count MPV Neut % (Auto) Lymph % (Auto) [place] % (Auto) Eos % (Auto) Baso % (Auto) Neut # Lymph # [place] # Eos # Baso # Puncture Site R rad pCO2 40 pO2 122 H HCO3 28.8 H ABG pH 7.47 H ABG Total CO2 30.3 H ABG O2 Saturation 98.4 H ABG Base Excess 5.0 H ABG Hemoglobin 10.4 L ABG Carboxyhemoglobin 1.6 H POC ABG HHb (Measured) 1.6 ABG Methemoglobin 0.7 Elder Test Pos A-a O2 Difference 185.0 Respiratory Index 1.5 Hgb O2 Saturation 96.1 Vent Mode Prvc Mechanical Rate 14 FiO2 50.0 Tidal Volume 500 PEEP 5 Sodium Potassium Chloride Carbon Dioxide Anion Gap BUN Creatinine Est GFR ( Amer) Est GFR (Non-Af Amer) POC Glucose (mg/dL) 135 H 103 Random Glucose Calcium Phosphorus Magnesium Total Bilirubin AST ALT Alkaline Phosphatase Total Protein Albumin Globulin Albumin/Globulin Ratio 08/22/17 08/22/1708/22/17 06:26 06:26 12:23 WBC 9.8 RBC 3.63 L Hgb 10.2 L Hct 32.6 L MCV 89.7 MCH 28.2 MCHC 31.4 L RDW 21.4 H Plt Count 174 MPV 9.0 Neut % (Auto) 63.9 Lymph % (Auto) 23.9 [place] % (Auto) 8.1 Eos % (Auto) 3.5 Baso % (Auto) 0.6 Neut # 6.3 Lymph # 2.3 [place] # 0.8 Eos # 0.3 Baso # 0.1 Puncture Site pCO2 pO2 HCO3 ABG pH ABG Total CO2 ABG O2 Saturation ABG Base Excess ABG Hemoglobin ABG Carboxyhemoglobin POC ABG HHb (Measured) ABG Methemoglobin Elder Test A-a O2 Difference Respiratory Index Hgb O2 Saturation Vent Mode Mechanical Rate FiO2 Tidal Volume PEEP Sodium 138 Potassium 4.9 Chloride 102 Carbon Dioxide 27 Anion Gap 15 BUN 48 H Creatinine 2.6 H Est GFR ( Amer) 29 Est GFR (Non-Af Amer) 24 POC Glucose (mg/dL) 114 H Random Glucose 73 L Calcium 8.1 L Phosphorus 3.8 Magnesium 2.3 Total Bilirubin 0.7 AST 31 ALT 45 Alkaline Phosphatase 112 Total Protein 6.2 L Albumin 2.4 L Globulin 3.7 Albumin/Globulin Ratio 0.7 L 08/22/17 17:43 WBC RBC Hgb Hct MCV MCH MCHC RDW Plt Count MPV Neut % (Auto) Lymph % (Auto) [place] % (Auto) Eos % (Auto) Baso % (Auto) Neut # Lymph # [place] # Eos # Baso # Puncture Site pCO2 pO2 HCO3 ABG pH ABG Total CO2 ABG O2 Saturation ABG Base Excess ABG Hemoglobin ABG Carboxyhemoglobin POC ABG HHb (Measured) ABG Methemoglobin Elder Test A-a O2 Difference Respiratory Index Hgb O2 Saturation Vent Mode Mechanical Rate FiO2 Tidal Volume PEEP Sodium Potassium Chloride Carbon Dioxide Anion Gap BUN Creatinine Est GFR ( Amer) Est GFR (Non-Af Amer) POC Glucose (mg/dL) 121 H Random Glucose Calcium Phosphorus Magnesium Total Bilirubin AST ALT Alkaline Phosphatase Total Protein Albumin Globulin Albumin/Globulin Ratio Critical Care Progress Note - Nutrition Nutrition: Nutrition Category Date Time Status NPO Diet [DIET] Diets 08/16/17 Breakfast Active Attending/Attestation - Attestation I have personally seen and examined this patient.: Yes I have fully participated in the care of the patient.: Yes I have reviewed all pertinent clinical information: Yes Notes (Text): 08/22/17 18:46 Today: , August 22, 2017 The Patient was seen and examined at the bedside, Medical records reviewed, and management issues were discussed and formulated with the house staff. I have reviewed all the relevant clinical, laboratory, hemodynamic, radiographic data and medications Events reviewed Pain issues, skin care, head of the bed elevation, glycemic control were addressed. Agree with above resident's assessment and treatment plans of care as transcribed in Dr. Avalos note.
--- NOTE | 2017-08-22 17:46 | CP.PCM.PN ---
Subjective - Date & Time of Evaluation Date of Evaluation: 08/22/17 Time of Evaluation: 11:00 - Subjective Subjective: the patient seen and examined in the intensive care unit Remains intubated on ventilatory support Response to vocal commands Seen during hemodialysis Afebrile FiO2 50% Objective - Vital Signs/Intake and Output Vital Signs (last 24 hours): Temp Pulse Resp BP Pulse Ox 97.6 F 111 H 15 99/56 L 100 08/22/17 13:00 08/22/17 17:00 08/22/17 17:00 08/22/17 16:35 08/22/17 17:00 Intake and Output: 08/22/17 08/22/17 06:59 18:59 Intake Total 600 600 Output Total 0 0 Balance 600 600 - Medications Medications: Current Medications Acetaminophen (Tylenol 325mg Tab) 650 mg PO Q4 PRN PRN Reason: Pain, moderate (4-7) Last Admin: 08/17/17 06:25 Dose: 650 mg Acetaminophen (Tylenol 325mg Tab) 650 mg PO Q6 PRN PRN Reason: FEVER ABOVE 101 OR NASCIMENTO Albuterol/Ipratropium (Duoneb 3 Mg/0.5 Mg (3 Ml) Ud) 3 ml INH RQ6 [facility] Last Admin: 08/22/17 14:18 Dose: 3 ml Ascorbic Acid (Vitamin C 500 Mg Tab) 500 mg PO DAILY [facility] Last Admin: 08/22/17 11:10 Dose: 500 mg Clopidogrel Bisulfate (Plavix) 75 mg PO DAILY [facility] Last Admin: 08/22/17 11:12 Dose: 75 mg Epoetin Jacobo (Procrit) 10,000 unit IV TTS [facility] Last Admin: 08/22/17 11:31 Dose: 10,000 unit Famotidine (Pepcid) 20 mg PO DAILY [facility] Last Admin: 08/22/17 11:13 Dose: 20 mg Finasteride (Proscar) 5 mg PO DAILY [facility] Last Admin: 08/22/17 11:11 Dose: 5 mg Heparin Sodium (Porcine) (Heparin) 5,000 units SC Q8 [facility] Last Admin: 08/22/17 14:41 Dose: 5,000 units Hydralazine HCl (Apresoline) 10 mg PO BID [facility] Metronidazole (Flagyl) 500 mg in 100 mls @ 100 mls/hr IVPB Q8 [facility] Last Admin: 08/22/17 14:42 Dose: 100 mls/hr Vancomycin HCl 1 gm/ Sodium (Chloride) 250 mls @ 166.7 mls/hr IVPB TTS [facility] Levothyroxine Sodium (Synthroid) 25 mcg PO DAILY@0630 [facility] Last Admin: 08/22/17 07:14 Dose: 25 mcg Lorazepam (Ativan) 1 mg IVP Q2H PRN PRN Reason: Agitation Megestrol Acetate (Megace) 400 mg PO DAILY [facility] Last Admin: 08/22/17 11:22 Dose: 400 mg Metoprolol Tartrate (Lopressor) 25 mg PO BID [facility] Last Admin: 07/30/17 18:16 Dose: Not Given Midodrine (Proamatine) 5 mg PO TID [facility] Last Admin: 08/22/17 15:57 Dose: Not Given Multivitamins (Hexavitamin) 1 tab PO DAILY [facility] Last Admin: 08/22/17 11:14 Dose: 1 tab Mupirocin (Bactroban Ointment) 0 gm TOP BID [facility] Last Admin: 08/22/17 11:16 Dose: Not Given Paricalcitol (Zemplar) 2 mcg IV TTS [facility] Last Admin: 08/22/17 11:32 Dose: 2 mcg Tamsulosin HCl (Flomax) 0.4 mg PO DAILY [facility] Last Admin: 08/22/17 11:14 Dose: 0.4 mg - Labs Labs: 08/22/17 06:26 08/22/17 06:26 PT 17.1 SECONDS (9.7-12.2) H 08/21/17 17:29 INR 1.5 08/21/17 17:29 APTT 34 SECONDS (21-34) 08/21/17 17:29 - Head Exam Head Exam: ATRAUMATIC, NORMOCEPHALIC - ENT Exam ENT Exam: Mucous Membranes Moist - Neck Exam Neck Exam: Normal Inspection - Respiratory Exam Respiratory Exam: Decreased Breath Sounds - Cardiovascular Exam Cardiovascular Exam: REGULAR RHYTHM - GI/Abdominal Exam GI & Abdominal Exam: Soft, Normal Bowel Sounds - Extremities Exam Extremities Exam: Normal Inspection - Neurological Exam Neurological Exam: Altered Assessment and Plan (1) Respiratory failure Assessment & Plan: Continue ventilatory support wean as tolerated Continue hemodialysis IV antibiotics Nebulizer treatment Status: Acute (2) Pleural effusion Status: Acute (3) Pneumonia Status: Acute (4) Dyspnea Status: Acute
--- NOTE | 2017-08-22 18:12 | CP.PCM.PN ---
Subjective - Date & Time of Evaluation Date of Evaluation: 08/22/17 Time of Evaluation: 18:12 - Subjective Subjective: pt is seen and examined, follow up consult is dictated #[id number] Objective - Vital Signs/Intake and Output Vital Signs (last 24 hours): Temp Pulse Resp BP Pulse Ox 97.6 F 111 H 15 99/56 L 100 08/22/17 13:00 08/22/17 17:00 08/22/17 17:00 08/22/17 16:35 08/22/17 17:00 Intake and Output: 08/22/17 08/22/17 06:59 18:59 Intake Total 600 600 Output Total 0 0 Balance 600 600 - Medications Medications: Current Medications Acetaminophen (Tylenol 325mg Tab) 650 mg PO Q4 PRN PRN Reason: Pain, moderate (4-7) Last Admin: 08/17/17 06:25 Dose: 650 mg Acetaminophen (Tylenol 325mg Tab) 650 mg PO Q6 PRN PRN Reason: FEVER ABOVE 101 OR [place]CIMENTO Albuterol/Ipratropium (Duoneb 3 Mg/0.5 Mg (3 Ml) Ud) 3 ml INH RQ6 [facility] Last Admin: 08/22/17 14:18 Dose: 3 ml Ascorbic Acid (Vitamin C 500 Mg Tab) 500 mg PO DAILY [facility] Last Admin: 08/22/17 11:10 Dose: 500 mg Clopidogrel Bisulfate (Plavix) 75 mg PO DAILY [facility] Last Admin: 08/22/17 11:12 Dose: 75 mg Epoetin Jacobo (Procrit) 10,000 unit IV TTS [facility] Last Admin: 08/22/17 11:31 Dose: 10,000 unit Famotidine (Pepcid) 20 mg PO DAILY [facility] Last Admin: 08/22/17 11:13 Dose: 20 mg Finasteride (Proscar) 5 mg PO DAILY [facility] Last Admin: 08/22/17 11:11 Dose: 5 mg Heparin Sodium (Porcine) (Heparin) 5,000 units SC Q8 [facility] Last Admin: 08/22/17 14:41 Dose: 5,000 units Hydralazine HCl (Apresoline) 10 mg PO BID [facility] Metronidazole (Flagyl) 500 mg in 100 mls @ 100 mls/hr IVPB Q8 [facility] Last Admin: 08/22/17 14:42 Dose: 100 mls/hr Vancomycin HCl 1 gm/ Sodium (Chloride) 250 mls @ 166.7 mls/hr IVPB TTS [facility] Levothyroxine Sodium (Synthroid) 25 mcg PO DAILY@0630 [facility] Last Admin: 08/22/17 07:14 Dose: 25 mcg Lorazepam (Ativan) 1 mg IVP Q2H PRN PRN Reason: Agitation Megestrol Acetate (Megace) 400 mg PO DAILY [facility] Last Admin: 08/22/17 11:22 Dose: 400 mg Metoprolol Tartrate (Lopressor) 25 mg PO BID [facility] Last Admin: 07/30/17 18:16 Dose: Not Given Midodrine (Proamatine) 5 mg PO TID [facility] Last Admin: 08/22/17 15:57 Dose: Not Given Multivitamins (Hexavitamin) 1 tab PO DAILY [facility] Last Admin: 08/22/17 11:14 Dose: 1 tab Mupirocin (Bactroban Ointment) 0 gm TOP BID [facility] Last Admin: 08/22/17 11:16 Dose: Not Given Paricalcitol (Zemplar) 2 mcg IV TTS [facility] Last Admin: 08/22/17 11:32 Dose: 2 mcg Tamsulosin HCl (Flomax) 0.4 mg PO DAILY [facility] Last Admin: 08/22/17 11:14 Dose: 0.4 mg - Labs Labs: 08/22/17 06:26 08/22/17 06:26 PT 17.1 SECONDS (9.7-12.2) H 08/21/17 17:29 INR 1.5 08/21/17 17:29 APTT 34 SECONDS (21-34) 08/21/17 17:29
--- NOTE | 2017-08-22 18:19 | CP.PCM.PN ---
Subjective - Date & Time of Evaluation Date of Evaluation: 08/22/17 Time of Evaluation: 08:00 - Subjective Subjective: seen and examined in the intensive care unit Remains intubated on ventilatory support Response to vocal commands Objective - Vital Signs/Intake and Output Vital Signs (last 24 hours): Temp Pulse Resp BP Pulse Ox 97.6 F 111 H 15 99/56 L 100 08/22/17 13:00 08/22/17 17:00 08/22/17 17:00 08/22/17 16:35 08/22/17 17:00 Intake and Output: 08/22/17 08/22/17 06:59 18:59 Intake Total 600 600 Output Total 0 0 Balance 600 600 - Medications Medications: Current Medications Acetaminophen (Tylenol 325mg Tab) 650 mg PO Q4 PRN PRN Reason: Pain, moderate (4-7) Last Admin: 08/17/17 06:25 Dose: 650 mg Acetaminophen (Tylenol 325mg Tab) 650 mg PO Q6 PRN PRN Reason: FEVER ABOVE 101 OR [place] Albuterol/Ipratropium (Duoneb 3 Mg/0.5 Mg (3 Ml) Ud) 3 ml INH RQ6 [facility] Last Admin: 08/22/17 14:18 Dose: 3 ml Ascorbic Acid (Vitamin C 500 Mg Tab) 500 mg PO DAILY [facility] Last Admin: 08/22/17 11:10 Dose: 500 mg Clopidogrel Bisulfate (Plavix) 75 mg PO DAILY [facility] Last Admin: 08/22/17 11:12 Dose: 75 mg Epoetin Jacobo (Procrit) 10,000 unit IV TTS [facility] Last Admin: 08/22/17 11:31 Dose: 10,000 unit Famotidine (Pepcid) 20 mg PO DAILY [facility] Last Admin: 08/22/17 11:13 Dose: 20 mg Finasteride (Proscar) 5 mg PO DAILY [facility] Last Admin: 08/22/17 11:11 Dose: 5 mg Heparin Sodium (Porcine) (Heparin) 5,000 units SC Q8 [facility] Last Admin: 08/22/17 14:41 Dose: 5,000 units Hydralazine HCl (Apresoline) 10 mg PO BID [facility] Metronidazole (Flagyl) 500 mg in 100 mls @ 100 mls/hr IVPB Q8 [facility] Last Admin: 08/22/17 14:42 Dose: 100 mls/hr Vancomycin HCl 1 gm/ Sodium (Chloride) 250 mls @ 166.7 mls/hr IVPB TTS [facility] Levothyroxine Sodium (Synthroid) 25 mcg PO DAILY@0630 [facility] Last Admin: 08/22/17 07:14 Dose: 25 mcg Lorazepam (Ativan) 1 mg IVP Q2H PRN PRN Reason: Agitation Megestrol Acetate (Megace) 400 mg PO DAILY [facility] Last Admin: 08/22/17 11:22 Dose: 400 mg Metoprolol Tartrate (Lopressor) 25 mg PO BID [facility] Last Admin: 07/30/17 18:16 Dose: Not Given Midodrine (Proamatine) 5 mg PO TID [facility] Last Admin: 08/22/17 15:57 Dose: Not Given Multivitamins (Hexavitamin) 1 tab PO DAILY [facility] Last Admin: 08/22/17 11:14 Dose: 1 tab Mupirocin (Bactroban Ointment) 0 gm TOP BID [facility] Last Admin: 08/22/17 11:16 Dose: Not Given Paricalcitol (Zemplar) 2 mcg IV TTS [facility] Last Admin: 08/22/17 11:32 Dose: 2 mcg Tamsulosin HCl (Flomax) 0.4 mg PO DAILY [facility] Last Admin: 08/22/17 11:14 Dose: 0.4 mg - Labs Labs: 08/22/17 06:26 08/22/17 06:26 PT 17.1 SECONDS (9.7-12.2) H 08/21/17 17:29 INR 1.5 08/21/17 17:29 APTT 34 SECONDS (21-34) 08/21/17 17:29 - Constitutional Appears: Non-toxic, Confused, Cachectic, Chronically Ill - Head Exam Head Exam: NORMOCEPHALIC - Eye Exam Eye Exam: PERRL. absent: Scleral icterus - ENT Exam ENT Exam: Mucous Membranes Dry - Neck Exam Neck Exam: absent: Lymphadenopathy - Respiratory Exam Respiratory Exam: Decreased Breath Sounds, Rales, Rhonchi - Cardiovascular Exam Cardiovascular Exam: REGULAR RHYTHM - GI/Abdominal Exam GI & Abdominal Exam: Distended, Soft, Diminished Bowel Sounds - Rectal Exam Rectal Exam: Deferred - Exam Exam: NORMAL INSPECTION - Extremities Exam Extremities Exam: absent: Pedal Edema - Back Exam Back Exam: absent: CVA tenderness (L), CVA tenderness (R) - Neurological Exam Neurological Exam: Alert, Awake - Psychiatric Exam Psychiatric exam: Depressed Assessment and Plan (1) Fever Status: Acute (2) Leukocytosis Status: Acute (3) UTI (urinary tract infection) Status: Acute (4) Acute renal failure Status: Acute (5) Generalized weakness Status: Acute (6) Hyperkalemia Status: Acute (7) Troponin level elevated Status: Acute (8) UTI (urinary tract infection) due to Enterococcus Status: Acute (9) UTI (urinary tract infection) due to Enterococcus Status: Acute (10) UTI due to Klebsiella species Status: Acute (11) UTI due to Klebsiella species Status: Acute
--- NOTE | 2017-08-22 22:42 | CP.PCM.PN ---
Subjective - Date & Time of Evaluation Date of Evaluation: 08/22/17 Time of Evaluation: 10:20 - Subjective Subjective: Pt seen and examined in the intensive care unit, remains on HD, when i examined him he is undergoing HD Remains intubated on ventilatory support Response to vocal commands Objective - Vital Signs/Intake and Output Vital Signs (last 24 hours): Temp Pulse Resp BP Pulse Ox 98.2 F 107 H 17 92/47 L 100 08/22/17 20:00 08/22/17 22:01 08/22/17 22:01 08/22/17 22:01 08/22/17 22:01 Intake and Output: 08/22/17 08/23/17 18:59 06:59 Intake Total 950 330 Output Total 0 0 Balance 950 330 - Medications Medications: Current Medications Acetaminophen (Tylenol 325mg Tab) 650 mg PO Q4 PRN PRN Reason: Pain, moderate (4-7) Last Admin: 08/17/17 06:25 Dose: 650 mg Acetaminophen (Tylenol 325mg Tab) 650 mg PO Q6 PRN PRN Reason: FEVER ABOVE 101 OR [place] Albuterol/Ipratropium (Duoneb 3 Mg/0.5 Mg (3 Ml) Ud) 3 ml INH RQ6 [facility] Last Admin: 08/22/17 20:20 Dose: 3 ml Ascorbic Acid (Vitamin C 500 Mg Tab) 500 mg PO DAILY [facility] Last Admin: 08/22/17 11:10 Dose: 500 mg Clopidogrel Bisulfate (Plavix) 75 mg PO DAILY [facility] Last Admin: 08/22/17 11:12 Dose: 75 mg Epoetin Jacobo (Procrit) 10,000 unit IV TTS [facility] Last Admin: 08/22/17 11:31 Dose: 10,000 unit Famotidine (Pepcid) 20 mg PO DAILY [facility] Last Admin: 08/22/17 11:13 Dose: 20 mg Finasteride (Proscar) 5 mg PO DAILY [facility] Last Admin: 08/22/17 11:11 Dose: 5 mg Heparin Sodium (Porcine) (Heparin) 5,000 units SC Q8 [facility] Last Admin: 08/22/17 21:50 Dose: 5,000 units Hydralazine HCl (Apresoline) 10 mg PO BID [facility] Metronidazole (Flagyl) 500 mg in 100 mls @ 100 mls/hr IVPB Q8 [facility] Last Admin: 08/22/17 21:50 Dose: 100 mls/hr Vancomycin HCl 1 gm/ Sodium (Chloride) 250 mls @ 166.7 mls/hr IVPB TTS [facility] Last Admin: 08/22/17 18:19 Dose: 166.7 mls/hr Levothyroxine Sodium (Synthroid) 25 mcg PO DAILY@0630 [facility] Last Admin: 08/22/17 07:14 Dose: 25 mcg Lorazepam (Ativan) 1 mg IVP Q2H PRN PRN Reason: Agitation Megestrol Acetate (Megace) 400 mg PO DAILY [facility] Last Admin: 08/22/17 11:22 Dose: 400 mg Metoprolol Tartrate (Lopressor) 25 mg PO BID [facility] Last Admin: 07/30/17 18:16 Dose: Not Given Midodrine (Proamatine) 5 mg PO TID [facility] Last Admin: 08/22/17 18:26 Dose: 5 mg Multivitamins (Hexavitamin) 1 tab PO DAILY [facility] Last Admin: 08/22/17 11:14 Dose: 1 tab Paricalcitol (Zemplar) 2 mcg IV TTS [facility] Last Admin: 08/22/17 11:32 Dose: 2 mcg Tamsulosin HCl (Flomax) 0.4 mg PO DAILY [facility] Last Admin: 08/22/17 11:14 Dose: 0.4 mg - Labs Labs: 08/22/17 06:26 08/22/17 06:26 PT 17.1 SECONDS (9.7-12.2) H 08/21/17 17:29 INR 1.5 08/21/17 17:29 APTT 34 SECONDS (21-34) 08/21/17 17:29 - Constitutional Appears: No Acute Distress, Chronically Ill - Head Exam Head Exam: ATRAUMATIC, NORMAL INSPECTION, NORMOCEPHALIC - Eye Exam Eye Exam: EOMI, Normal appearance, PERRL Pupil Exam: NORMAL ACCOMODATION, PERRL - Respiratory Exam Respiratory Exam: Clear to Ausculation Bilateral, NORMAL BREATHING PATTERN - Cardiovascular Exam Cardiovascular Exam: REGULAR RHYTHM, +S1, +S2. absent: Murmur - GI/Abdominal Exam GI & Abdominal Exam: Soft, Normal Bowel Sounds. absent: Tenderness - Neurological Exam Neurological Exam: Alert, Awake - Psychiatric Exam Psychiatric exam: Depressed, Flat Affect - Skin Skin Exam: Dry, Intact, Normal Color, Warm Assessment and Plan (1) Fever Status: Acute (2) Leukocytosis Status: Acute (3) UTI (urinary tract infection) Status: Acute (4) Leg ulcer Status: Acute (5) Toxic metabolic encephalopathy Status: Acute (6) Pleural effusion Status: Acute
[2017-08-23] MEDS: Albuterol-Ipratrop 3 mg / 0.5 (3 ml) UD INH SCH ×4 (01:34→20:43)
[2017-08-23] MEDS: Levothyroxine 25 MCG TAB PO SCH (05:30)
[2017-08-23] MEDS: metroNIDAZOLE IV 500 mg/100 ml 500 MG/100 ML BAG IVPB SCH (05:30)
[2017-08-23 05:41] LABS: ABG ALLEN TEST POS; ABG MECHANICAL RATE 14; ARTERIAL BLOOD GAS MODE PRVC; ARTERIAL BLOOD HGB O2 SAT 95.9 % (95.0-98.0); ATERIAL BLOOD GAS PEEP 5; CARBOXYHEMOGLOBIN 1.5 % (0.5-1.5); DRAW SITE RR; HHB 1.7 % (0.0-5.0); METHEMOGLOBIN 0.8 % (0.0-3.0)
--- NOTE | 2017-08-23 06:00 | PN ---
DATE: FOLLOWUP RENAL CONSULTATION LOCATION: Patient is located in ICU bed 9. REQUESTED BY: Daniel Coyle MD REASON FOR FOLLOWUP: End-stage renal disease for continuation of hemodialysis. HISTORY OF PRESENT ILLNESS: Mr. Cunningham is about 82-year-old elderly male with past medical history significant for hypertension, coronary artery disease status post CABG, CHF, chronic kidney disease and gout, who was [facility] the [facility] with altered mental status and also UTI and shortness of breath. The patient was found to have UTI. Subsequently his hospital course was complicated by code sepsis and requiring transfer to ICU on pressors and also requiring transfusion, and with worsening renal function and shock liver. The patient was started on hemodialysis for worsening renal function. The patient is being dialyzed three times a week, Saturday, , Saturday. The patient was transferred yesterday morning to ICU, intubated for respiratory failure. The patient is more alert and awake, tries to follow simple commands, on ventilator. PHYSICAL EXAMINATION: VITAL SIGNS: Blood pressure 105/62, pulse 104, respirations 24, temperature 97.7. GENERAL: Mr. Cunningham is an 82-year-old elderly male on ventilator, moderately built, moderately nourished, not in distress. HEENT: Pupils normal, reactive to light and accommodation. Conjunctivae pink. Sclerae anicteric. Trachea is midline. LUNGS: Symmetric on both sides. Bilateral breath sounds present, occasional basal crackles present. CVS: [place] at the fifth intercostal space, midclavicular line. S1 and S2 audible. No murmur or gallop. ABDOMEN: Normal in appearance, soft, tympanic. No guarding. No rigidity. Patient has PEG tube. Patient also has midsternal scar present from the previous CABG. [employer]: The patient is on ventilator, awake, tries to follow simple commands. EXTREMITIES: No cyanosis, no clubbing. He has 1 to 2+ edema in both upper and lower extremities. CURRENT MEDICATIONS: Include as follows; lorazepam 1 mg IV q. 2h., DuoNeb inhaler, Flagyl 500 mg IV q.8h., Flomax 0.4 mg daily, heparin 5000 units subcu q.8h., multivitamin one tablet daily, megestrol 400 mg p.o. daily, Pepcid 20 mg p.o. daily, Plavix 75 mg daily, midodrine 5 mg p.o. t.i.d., Procrit 10,000 units three times a week, Proscar 5 mg p.o. daily, Synthroid 25 mcg daily, Tylenol and vancomycin 1 g three times a week, vitamin C 500 mg p.o. daily, and Zemplar 2 mcg three times a week. LABORATORY DATA: Include as follows; as of 08/22/2017, WBC 9.8, hemoglobin 10.2, hematocrit is 32.6, platelets 174,000. ABG, pH 7.47, pCO2 of 40, pO2 of 122, bicarbonate is 28, saturation 98.4, with vent settings, AC 14, 500 tidal volume, FiO2 50%, PEEP of 5. Sodium 138, potassium 4.9, chloride 102, CO2 27, BUN 48, creatinine 2.6, glucose is 73, calcium 8.1, phosphorus 3.8, magnesium 2.3. Total bilirubin 0.7, AST 31, ALT 45, alkaline phosphatase 121, total protein 6.2, albumin is 2.4. Accu-Cheks 114 and 121. Other reports, chest x-ray as of 08/21/2017, terminates 5.1 cm proximal to baljeet and the right-sided dialysis catheter terminates in the right atrium. Lungs, there is demonstration of pulmonary venous congestion and persistent left lower lobe consolidation. IMPRESSION: Persistent cardiomegaly and moderate left pleural effusion with worsening moderate right pleural effusion, persistent consolidation in the left lower lobe. 08/21/2017, MRSA screening is negative. Pleural fluid for AFB, as of 08/16/2017, no AFB seen. In summary, Mr. Cunningham is an 82-year-old elderly male with a history of longstanding hypertension, coronary artery disease, hyperlipidemia, gout, renal failure, and congestive heart failure, who was admitted from the jail with urosepsis, altered mental status and shortness of breath, being treated for urinary tract infection and urosepsis, pneumonia and congestive heart failure, on ventilator. 1. End-stage renal disease. Continue hemodialysis three times a week, Saturday, , Saturday. 2. Anemia. Hemoglobin and hematocrit is slowly improving. Continue Epogen during dialysis. 3. Congestive heart failure. 4. Pneumonia. Continue antibiotics as per Infectious Disease recommendations and we will continue to ultrafiltrate as much as the patient can tolerate. The patient underwent hemodialysis this afternoon and had ultrafiltration of about 850 mL. We will follow with you. Thank you for allowing me to participate in your patient's care Hernan Peterson MD
[2017-08-23 06:33] LABS: BASO # 0.1 K/uL (0.0-0.2); BASO % 0.7 % (0.0-2.0); EOS # 0.3 K/uL (0.0-0.7); EOS % 3.3 % (0.0-4.0); HEMATOCRIT 31.4 % (35.0-51.0); LYMPH # 1.7 K/uL (1.0-4.3); LYMPH % 20.2 % (20.0-40.0); MEAN CELL VOLUME 90.9 fL (80.0-94.0); MEAN CORPUSCULAR HEMOGLOBIN 28.1 pg (27.0-31.0); MEAN CORPUSCULAR HGB CONC 30.9 g/dL (33.0-37.0); MEAN PLATELET VOLUME 9.2 fL (7.2-11.7); MONO # 0.8 K/uL (0.0-0.8); MONO % 9.2 % (0.0-10.0); NRBC % 0.1 % (0.0-2.0); RED CELL DISTRIBUTION WIDTH 21.5 % (11.5-14.5); WHITE BLOOD COUNT 8.5 K/uL (4.8-10.8)
[2017-08-23 06:46] LABS: ALB/GLOB RATIO 0.8 (1.0-2.1); BILIRUBIN,TOTAL 0.8 mg/dL (0.2-1.3); CALCIUM 7.8 mg/dl (8.6-10.4); MAGNESIUM 2.2 mg/dL (1.6-2.3); PHOSPHOROUS 2.9 mg/dL (2.5-4.5); POTASSIUM 4.4 mmol/L (3.6-5.2); TOTAL PROTEIN 5.2 g/dL (6.3-8.3)
[2017-08-23] MEDS: Multiple Vitamins Tab PO SCH (09:54)
[2017-08-23] MEDS: Megestrol Acetate 40 mg/ml Cup PO SCH (09:54)
--- NOTE | 2017-08-23 10:57 | CP.PCM.PN ---
Subjective - Date & Time of Evaluation Date of Evaluation: 08/23/17 Time of Evaluation: 10:56 - Subjective Subjective: follow up consult is dictated , for extra hd/ uf today, uf goal is 2 lit# [id number] Objective - Vital Signs/Intake and Output Vital Signs (last 24 hours): Temp Pulse Resp BP Pulse Ox 97.3 F L 106 H 17 108/60 100 08/23/17 08:00 08/23/17 08:00 08/23/17 08:00 08/23/17 08:00 08/23/17 08:00 Intake and Output: 08/23/17 08/23/17 06:59 18:59 Intake Total 945 120 Output Total 0 Balance 945 120 - Medications Medications: Current Medications Acetaminophen (Tylenol 325mg Tab) 650 mg PO Q4 PRN PRN Reason: Pain, moderate (4-7) Last Admin: 08/17/17 06:25 Dose: 650 mg Acetaminophen (Tylenol 325mg Tab) 650 mg PO Q6 PRN PRN Reason: FEVER ABOVE 101 OR NASCIMENTO Albumin Human (Albumin Human 25% (12.5 Gm/50 Ml)) 12.5 gm IV ONCE ONE Stop: 08/23/17 13:31 Albuterol/Ipratropium (Duoneb 3 Mg/0.5 Mg (3 Ml) Ud) 3 ml INH RQ6 [facility] Last Admin: 08/23/17 07:36 Dose: 3 ml Ascorbic Acid (Vitamin C 500 Mg Tab) 500 mg PO DAILY [facility] Last Admin: 08/23/17 09:54 Dose: 500 mg Clopidogrel Bisulfate (Plavix) 75 mg PO DAILY [facility] Last Admin: 08/23/17 09:54 Dose: 75 mg Epoetin Jacobo (Procrit) 10,000 unit IV TTS [facility] Last Admin: 08/22/17 11:31 Dose: 10,000 unit Famotidine (Pepcid) 20 mg PO DAILY [facility] Last Admin: 08/23/17 09:54 Dose: 20 mg Finasteride (Proscar) 5 mg PO DAILY [facility] Last Admin: 08/23/17 09:54 Dose: 5 mg Heparin Sodium (Porcine) (Heparin) 5,000 units SC Q8 [facility] Last Admin: 08/23/17 05:30 Dose: 5,000 units Hydralazine HCl (Apresoline) 10 mg PO BID [facility] Metronidazole (Flagyl) 500 mg in 100 mls @ 100 mls/hr IVPB Q8 [facility] Last Admin: 08/23/17 05:30 Dose: 100 mls/hr Vancomycin HCl 1 gm/ Sodium (Chloride) 250 mls @ 166.7 mls/hr IVPB TTS [facility] Last Admin: 08/22/17 18:19 Dose: 166.7 mls/hr Phenylephrine HCl 30 mg/ (Sodium Chloride) 250 mls @ 10 mls/hr IV .Q24H PRN; Protocol; 20 MCG/MIN PRN Reason: TITRATE PER MD ORDER Levothyroxine Sodium (Synthroid) 25 mcg PO DAILY@0630 [facility] Last Admin: 08/23/17 05:30 Dose: 25 mcg Lorazepam (Ativan) 1 mg IVP Q2H PRN PRN Reason: Agitation Megestrol Acetate (Megace) 400 mg PO DAILY [facility] Last Admin: 08/23/17 09:54 Dose: 400 mg Metoprolol Tartrate (Lopressor) 25 mg PO BID [facility] Last Admin: 07/30/17 18:16 Dose: Not Given Midodrine (Proamatine) 5 mg PO TID [facility] Last Admin: 08/23/17 09:54 Dose: 5 mg Multivitamins (Hexavitamin) 1 tab PO DAILY [facility] Last Admin: 08/23/17 09:54 Dose: 1 tab Paricalcitol (Zemplar) 2 mcg IV TTS [facility] Last Admin: 08/22/17 11:32 Dose: 2 mcg Tamsulosin HCl (Flomax) 0.4 mg PO DAILY [facility] Last Admin: 08/23/17 09:53 Dose: 0.4 mg - Labs Labs: 08/23/17 06:18 08/23/17 06:18 PT 17.1 SECONDS (9.7-12.2) H 08/21/17 17:29 INR 1.5 08/21/17 17:29 APTT 34 SECONDS (21-34) 08/21/17 17:29
--- NOTE | 2017-08-23 10:57 | RAD ---
HISTORY: intubated COMPARISON: 08/22/2017 FINDINGS: LUNGS: Persistent extensive opacity in both lower lobes. PLEURA: Probable small left pleural effusion. No evidence of right pleural effusion. No pneumothorax. CARDIOVASCULAR: Normal heart size. CABG. ET tube unchanged. Right tunneled central venous dialysis catheter. OSSEOUS STRUCTURES: No significant abnormalities. VISUALIZED UPPER ABDOMEN: Normal. OTHER FINDINGS: None. IMPRESSION: Extensive bibasilar opacity unchanged. Probable small left pleural effusion. Lines and tubes unchanged.
[2017-08-23] MEDS ORDERED: Phenylephrine 30 MG in Sodium Chloride 0.9% 247 ML IV PRN (11:00)
--- NOTE | 2017-08-23 11:52 | PN ---
DATE: LOCATION: ICU 9. SUBJECTIVE: This is an 82 years old male, seen and examined in rounds, tolerating PEG feeding well, without reported active bleeding or residual, but reported a small amount of scanty greenish drainage from the PEG tube and around it. The entire chart is reviewed including but not limited to most recent lab and radiology study results, current and the previous medication list, current and the previous medical events, and the most recent reported chest x-ray done yesterday indicative of improvement of the right opacity. PHYSICAL EXAMINATION GENERAL: An 82 years old male. The patient somewhat responds occasionally to verbal stimuli. VITAL SIGNS: Afebrile with pulse of 102, blood pressure of 116/64. HEENT: Showed pale dry oral mucous membrane. Nonicteric sclerae. LUNGS: Scattered crepitation, with bilateral mild rales as well as decreased air entry, especially in the left side. HEART: Positive S1 and S2 with increased rate. ABDOMEN: Soft. Bowel sounds are present. PEG tube is in place with very minimum anterior abdominal wall cellulitis. EXTREMITIES: Significant edema, clubbing or cyanosis. NEUROLOGIC: No reported new neurological deficits, sensory or motor. IMPRESSION: 1. Malnutrition. 2. Status post percutaneous endoscopic gastrostomy insertion. 3. Peptic ulcer disease. 4. Pneumonia with recent respiratory insufficiency. 5. Known history of end-stage renal disease, on hemodialysis. 6. Congestive heart failure, hypertension, coronary artery disease with status post coronary artery bypass surgery, by history. 7. Anemia secondary to above. SUGGESTIONS: 1. Agree with your plan. 2. Adjust feeding rate. 3. Antireflux measures to continue. 4. No further aggressive GI workup and require occult stool POD with blood transfusion as needed. 5. Further recommendation to follow. Katia Pardo MD
--- NOTE | 2017-08-23 12:36 | CP.PCM.PN ---
Subjective - Date & Time of Evaluation Date of Evaluation: 08/23/17 Time of Evaluation: 11:10 - Subjective Subjective: the patient seen and examined Patient is much more awake and responsive On ventilatory support FiO2 50% Afebrile Status post hemodialysis yesterday Tolerating PEG feeding Objective - Vital Signs/Intake and Output Vital Signs (last 24 hours): Temp Pulse Resp BP Pulse Ox 97.3 F L 100 H 21 98/51 L 100 08/23/17 08:00 08/23/17 11:23 08/23/17 11:23 08/23/17 11:23 08/23/17 11:23 Intake and Output: 08/23/17 08/23/17 06:59 18:59 Intake Total 945 410 Output Total 0 Balance 945 410 - Medications Medications: Current Medications Acetaminophen (Tylenol 325mg Tab) 650 mg PO Q4 PRN PRN Reason: Pain, moderate (4-7) Last Admin: 08/17/17 06:25 Dose: 650 mg Acetaminophen (Tylenol 325mg Tab) 650 mg PO Q6 PRN PRN Reason: FEVER ABOVE 101 OR [place]IM[place]O Albumin Human (Albumin Human 25% (12.5 Gm/50 Ml)) 12.5 gm IV ONCE ONE Stop: 08/23/17 13:31 Albuterol/Ipratropium (Duoneb 3 Mg/0.5 Mg (3 Ml) Ud) 3 ml INH RQ6 [facility] Last Admin: 08/23/17 07:36 Dose: 3 ml Ascorbic Acid (Vitamin C 500 Mg Tab) 500 mg PO DAILY [facility] Last Admin: 08/23/17 09:54 Dose: 500 mg Clopidogrel Bisulfate (Plavix) 75 mg PO DAILY [facility] Last Admin: 08/23/17 09:54 Dose: 75 mg Epoetin Jacobo (Procrit) 10,000 unit IV TTS [facility] Last Admin: 08/22/17 11:31 Dose: 10,000 unit Famotidine (Pepcid) 20 mg PO DAILY [facility] Last Admin: 08/23/17 09:54 Dose: 20 mg Finasteride (Proscar) 5 mg PO DAILY [facility] Last Admin: 08/23/17 09:54 Dose: 5 mg Heparin Sodium (Porcine) (Heparin) 5,000 units SC Q8 [facility] Last Admin: 08/23/17 05:30 Dose: 5,000 units Hydralazine HCl (Apresoline) 10 mg PO BID [facility] Phenylephrine HCl 30 mg/ (Sodium Chloride) 250 mls @ 10 mls/hr IV .Q24H PRN; Protocol; 20 MCG/MIN PRN Reason: TITRATE PER MD ORDER Last Admin: 08/23/17 11:23 Dose: 20 mcg/min, 10 mls/hr Levothyroxine Sodium (Synthroid) 25 mcg PO DAILY@0630 [facility] Last Admin: 08/23/17 05:30 Dose: 25 mcg Lorazepam (Ativan) 1 mg IVP Q2H PRN PRN Reason: Agitation Megestrol Acetate (Megace) 400 mg PO DAILY [facility] Last Admin: 08/23/17 09:54 Dose: 400 mg Metoprolol Tartrate (Lopressor) 25 mg PO BID [facility] Last Admin: 07/30/17 18:16 Dose: Not Given Midodrine (Proamatine) 5 mg PO TID [facility] Last Admin: 08/23/17 09:54 Dose: 5 mg Multivitamins (Hexavitamin) 1 tab PO DAILY [facility] Last Admin: 08/23/17 09:54 Dose: 1 tab Paricalcitol (Zemplar) 2 mcg IV TTS [facility] Last Admin: 08/22/17 11:32 Dose: 2 mcg Tamsulosin HCl (Flomax) 0.4 mg PO DAILY [facility] Last Admin: 08/23/17 09:53 Dose: 0.4 mg - Labs Labs: 08/23/17 06:18 08/23/17 06:18 PT 17.1 SECONDS (9.7-12.2) H 08/21/17 17:29 INR 1.5 08/21/17 17:29 APTT 34 SECONDS (21-34) 08/21/17 17:29 - Head Exam Head Exam: ATRAUMATIC, NORMOCEPHALIC - ENT Exam ENT Exam: Mucous Membranes Moist - Neck Exam Neck Exam: Normal Inspection - Respiratory Exam Respiratory Exam: Decreased Breath Sounds - Cardiovascular Exam Cardiovascular Exam: REGULAR RHYTHM - GI/Abdominal Exam GI & Abdominal Exam: Soft Assessment and Plan (1) Respiratory failure Assessment & Plan: CPAP trial Continue antibiotics, nebulizer treatment and hemodialysis Continue feeding Status: Acute (2) Pleural effusion Status: Acute (3) Pneumonia Status: Acute (4) Dyspnea Status: Acute
[2017-08-23] MEDS: Albumin Human 25% (12.5 gm/50 ml) IV ONE ×2 (13:20→17:16)
[2017-08-23] MEDS ORDERED: Albumin Human 25% (12.5 gm/50 ml) IV ONE (14:00)
--- NOTE | 2017-08-23 15:25 | CP.CCUPN ---
<Celestino Avalos - Last Filed: 08/23/17 15:22> CCU Subjective - Physician Review Subjective (Free Text): PGY1 ICU Progress Note for Dr. House Patient seen and examined at bedside this morning. No acute events overnight. Patient intubated. ROS unattainable. CCU Objective - Vital Signs / Intake & Output Vital Signs (Last 4 hours): Vital Signs Temp Pulse Pulse Resp BP BP Pulse Ox 08/23/17 15:00 93/48 L 100 08/23/17 14:47 97 H 15 90/49 L 100 08/23/17 14:45 98 H 14 85/51 L 90/49 L 100 08/23/17 14:30 97 H 17 91/48 L 100 08/23/17 14:16 97 H 18 85/43 L 100 08/23/17 14:15 98 H 15 75/43 L 85/43 L 100 08/23/17 14:06 97 H 16 83/46 L 100 08/23/17 14:00 99 H 15 81/46 L 81/46 L 100 08/23/17 13:45 101 H 12 89/47 L 89/47 L 100 08/23/17 13:30 102 H 14 83/47 L 83/47 L 99 08/23/17 13:16 102 H 20 82/46 L 98 08/23/17 13:15 82/46 L 08/23/17 13:00 99 H 16 104/53 L 104/53 L 08/23/17 12:59 98 H 14 110/56 L 100 08/23/17 12:51 101 H 11 L 110/56 L 100 08/23/17 12:45 98.4 F 104 H 104 H 18 103/59 L 110/56 L 100 08/23/17 12:40 98.4 F 104 H 19 103/59 L 08/23/17 12:01 103 H 11 L 90/58 L 100 08/23/17 12:00 98.1 F 104 H 11 L 08/23/17 11:23 100 H 21 98/51 L 100 Intake and Output (Last 8hrs): Intake & Output 08/23/17 08/23/17 08/23/17 06:59 14:59 22:59 Intake Total 615 420 Balance 615 420 Weight 175 lb 1 oz Intake: IV 10 Intake, IV Amount 100 10 Right Medial Port 10 Internal Jugular Right Proximal Port 100 Internal Jugular Oral 160 Tube Feeding 355 300 Other 100 Other: # Bowel Movements 0 - Physical Exam Head: Positive for: Atraumatic, Normocephalic, Other (intubated) Extroacular Muscles: Positive for: EOMI Conjunctiva: Positive for: Normal Mouth: Positive for: Moist Mucous Membranes Neck: Positive for: Other Respiratory/Chest: Positive for: Good Air Exchange, Rhonchi, Other (intubated). Negative for: Respiratory Distress, Accessory Muscle Use Cardiovascular: Positive for: Regular Rate and Rhythm Abdomen: Negative for: Tenderness, Distention Lower Extremity: Positive for: Edema, Other (dressings clean/ dry/ intact) Skin: Positive for: Warm, Normal Color, Other (right arm, hyperpigmentation with blister resolving on right arm, BP cuff on left arm, right arm swelling improved) Psychiatric: Positive for: Alert (follows people in room with his eye and by turning his head ) - Medications Active Medications: Active Medications Generic Name Dose Route Start Last Admin Trade Name Freq PRN Reason Stop Dose Admin Acetaminophen 650 mg 08/10/17 14:59 08/17/17 06:25 Tylenol 325mg Tab PO 650 mg Q4 PRN Administration Pain, moderate (4-7) Acetaminophen 650 mg 08/10/17 15:15 Tylenol 325mg Tab PO Q6 PRN FEVER ABOVE 101 OR NASCIMENTO Albuterol/Ipratropium 3 ml 08/19/17 11:30 08/23/17 13:51 Duoneb 3 Mg/0.5 Mg (3 Ml) Ud INH 3 ml RQ6 DAWIT Administration Ascorbic Acid 500 mg 08/02/17 10:15 08/23/17 09:54 Vitamin C 500 Mg Tab PO 500 mg DAILY DAWIT Administration Clopidogrel Bisulfate 75 mg 07/25/17 10:00 08/23/17 09:54 Plavix PO 75 mg DAILY DAWIT Administration Epoetin Jacobo 10,000 unit 08/10/17 10:00 08/22/17 11:31 Procrit IV 10,000 unit TTS DAWIT Administration Famotidine 20 mg 08/02/17 10:00 08/23/17 09:54 Pepcid PO 20 mg DAILY DAWIT Administration Finasteride 5 mg 07/25/17 10:00 08/23/17 09:54 Proscar PO 5 mg DAILY DAWIT Administration Heparin Sodium (Porcine) 5,000 units 08/22/17 14:00 08/23/17 14:53 Heparin SC 5,000 units Q8 DAWIT Administration Hydralazine HCl 10 mg 08/17/17 14:44 Apresoline PO BID DAWIT Phenylephrine HCl 30 mg/ 250 mls @ 10 mls/hr 08/23/17 11:00 08/23/17 12:37 Sodium Chloride IV 30 mcg/min .Q24H PRN 15 mls/hr TITRATE PER MD ORDER Titration Protocol 20 MCG/MIN Levothyroxine Sodium 25 mcg 07/25/17 06:30 08/23/17 05:30 Synthroid PO 25 mcg DAILY@0630 DAWIT Administration Lorazepam 1 mg 08/21/17 18:32 Ativan IVP Q2H PRN Agitation Megestrol Acetate 400 mg 08/13/17 10:00 08/23/17 09:54 Megace PO 400 mg DAILY DAWIT Administration Metoprolol Tartrate 25 mg 07/26/17 10:30 07/30/17 18:16 Lopressor PO Not Given BID DAWIT Midodrine 5 mg 08/01/17 14:00 08/23/17 14:54 Proamatine PO 5 mg TID DAWIT Administration Multivitamins 1 tab 08/02/17 10:15 08/23/17 09:54 Hexavitamin PO 1 tab DAILY DAWIT Administration Paricalcitol 2 mcg 08/06/17 10:00 08/22/17 11:32 Zemplar IV 2 mcg TTS DAWIT Administration Tamsulosin HCl 0.4 mg 07/25/17 10:00 08/23/17 09:53 Flomax PO 0.4 mg DAILY DAWIT Administration - Patient Studies Lab Studies: Microbiology Studies 08/21/17 14:29 MRSA Culture (Admit) - Final Naris MRSA NOT DETECTED Lab Studies 08/23/17 08/23/17 08/23/17 Range/Units 13:08 13:05 12:01 WBC (4.8-10.8) K/uL RBC (4.40-5.90) Mil/uL Hgb (12.0-18.0) g/dL Hct (35.0-51.0) % MCV (80.0-94.0) fL MCH (27.0-31.0) pg MCHC (33.0-37.0) g/dL RDW (11.5-14.5) % Plt Count (130-400) K/uL MPV (7.2-11.7) fL Neut % (Auto) (50.0-75.0) % Lymph % (Auto) (20.0-40.0) % [place] % (Auto) (0.0-10.0) % Eos % (Auto) (0.0-4.0) % Baso % (Auto) (0.0-2.0) % Neut # (1.8-7.0) K/uL Lymph # (1.0-4.3) K/uL [place] # (0.0-0.8) K/uL Eos # (0.0-0.7) K/uL Baso # (0.0-0.2) K/uL Puncture Site pCO2 (35-45) mm/Hg pO2 (80-100) mm/Hg HCO3 (21-28) mmol/L ABG pH (7.35-7.45) ABG Total CO2 (22-28) mmol/L ABG O2 Saturation (95-98) % ABG Base Excess (-2.0-3.0) mmol/L ABG Hemoglobin (11.7-17.4) g/dL ABG Carboxyhemoglobin (0.5-1.5) % POC ABG HHb (Measured) (0.0-5.0) % ABG Methemoglobin (0.0-3.0) % Elder Test A-a O2 Difference mm/Hg Respiratory Index Hgb O2 Saturation (95.0-98.0) % Vent Mode Mechanical Rate FiO2 % Tidal Volume PEEP Sodium (132-148) mmol/L Potassium (3.6-5.2) mmol/L Chloride (98-107) mmol/L Carbon Dioxide (22-30) mmol/L Anion Gap (10-20) BUN (9-20) mg/dL Creatinine (0.8-1.5) mg/dL Est GFR ( Amer) Est GFR (Non-Af Amer) POC Glucose (mg/dL) 141 H 134 H (65-110) mg/dL Random Glucose (75-110) mg/dL Hemoglobin A1c 5.0 (4.2-6.5) % Calcium (8.6-10.4) mg/dl Phosphorus (2.5-4.5) mg/dL Magnesium (1.6-2.3) mg/dL Total Bilirubin (0.2-1.3) mg/dL AST (17-59) U/L ALT (21-72) U/L Alkaline Phosphatase (38-126) U/L Total Protein (6.3-8.3) g/dL Albumin (3.5-5.0) g/dL Globulin (2.2-3.9) gm/dL Albumin/Globulin Ratio (1.0-2.1) 08/23/17 08/23/17 08/23/17 Range/Units 06:18 06:18 05:46 WBC 8.5 (4.8-10.8) K/uL RBC 3.45 L (4.40-5.90) Mil/uL Hgb 9.7 L (12.0-18.0) g/dL Hct 31.4 L (35.0-51.0) % MCV 90.9 (80.0-94.0) fL MCH 28.1 (27.0-31.0) pg MCHC 30.9 L (33.0-37.0) g/dL RDW 21.5 H (11.5-14.5) % Plt Count 156 (130-400) K/uL MPV 9.2 (7.2-11.7) fL Neut % (Auto) 66.6 (50.0-75.0) % Lymph % (Auto) 20.2 (20.0-40.0) % [place] % (Auto) 9.2 (0.0-10.0) % Eos % (Auto) 3.3 (0.0-4.0) % Baso % (Auto) 0.7 (0.0-2.0) % Neut # 5.7 (1.8-7.0) K/uL Lymph # 1.7 (1.0-4.3) K/uL [place] # 0.8 (0.0-0.8) K/uL Eos # 0.3 (0.0-0.7) K/uL Baso # 0.1 (0.0-0.2) K/uL Puncture Site pCO2 (35-45) mm/Hg pO2 (80-100) mm/Hg HCO3 (21-28) mmol/L ABG pH (7.35-7.45) ABG Total CO2 (22-28) mmol/L ABG O2 Saturation (95-98) % ABG Base Excess (-2.0-3.0) mmol/L ABG Hemoglobin (11.7-17.4) g/dL ABG Carboxyhemoglobin (0.5-1.5) % POC ABG HHb (Measured) (0.0-5.0) % ABG Methemoglobin (0.0-3.0) % Elder Test A-a O2 Difference mm/Hg Respiratory Index Hgb O2 Saturation (95.0-98.0) % Vent Mode Mechanical Rate FiO2 % Tidal Volume PEEP Sodium 138 (132-148) mmol/L Potassium 4.4 (3.6-5.2) mmol/L Chloride 102 (98-107) mmol/L Carbon Dioxide 31 H (22-30) mmol/L Anion Gap 10 (10-20) BUN 37 H (9-20) mg/dL Creatinine 2.1 H (0.8-1.5) mg/dL Est GFR ( Amer) 37 Est GFR (Non-Af Amer) 31 POC Glucose (mg/dL) 101 (65-110) mg/dL Random Glucose 86 (75-110) mg/dL Hemoglobin A1c (4.2-6.5) % Calcium 7.8 L (8.6-10.4) mg/dl Phosphorus 2.9 (2.5-4.5) mg/dL Magnesium 2.2 (1.6-2.3) mg/dL Total Bilirubin 0.8 (0.2-1.3) mg/dL AST 24 (17-59) U/L ALT 38 (21-72) U/L Alkaline Phosphatase 105 (38-126) U/L Total Protein 5.2 L (6.3-8.3) g/dL Albumin 2.3 L (3.5-5.0) g/dL Globulin 2.8 (2.2-3.9) gm/dL Albumin/Globulin Ratio 0.8 L (1.0-2.1) 08/23/17 08/22/17 08/22/17 Range/Units 05:11 23:47 17:43 WBC (4.8-10.8) K/uL RBC (4.40-5.90) Mil/uL Hgb (12.0-18.0) g/dL Hct (35.0-51.0) % MCV (80.0-94.0) fL MCH (27.0-31.0) pg MCHC (33.0-37.0) g/dL RDW (11.5-14.5) % Plt Count (130-400) K/uL MPV (7.2-11.7) fL Neut % (Auto) (50.0-75.0) % Lymph % (Auto) (20.0-40.0) % [place] % (Auto) (0.0-10.0) % Eos % (Auto) (0.0-4.0) % Baso % (Auto) (0.0-2.0) % Neut # (1.8-7.0) K/uL Lymph # (1.0-4.3) K/uL [place] # (0.0-0.8) K/uL Eos # (0.0-0.7) K/uL Baso # (0.0-0.2) K/uL Puncture Site Rr pCO2 33 L (35-45) mm/Hg pO2 102 H (80-100) mm/Hg HCO3 26.5 (21-28) mmol/L ABG pH 7.49 H (7.35-7.45) ABG Total CO2 26.1 (22-28) mmol/L ABG O2 Saturation 98.3 H (95-98) % ABG Base Excess 2.0 (-2.0-3.0) mmol/L ABG Hemoglobin 10.4 L (11.7-17.4) g/dL ABG Carboxyhemoglobin 1.5 (0.5-1.5) % POC ABG HHb (Measured) 1.7 (0.0-5.0) % ABG Methemoglobin 0.8 (0.0-3.0) % Elder Test Pos A-a O2 Difference 142.0 mm/Hg Respiratory Index 1.4 Hgb O2 Saturation 95.9 (95.0-98.0) % Vent Mode Prvc Mechanical Rate 14 FiO2 40.0 % Tidal Volume 500 PEEP 5 Sodium (132-148) mmol/L Potassium (3.6-5.2) mmol/L Chloride (98-107) mmol/L Carbon Dioxide (22-30) mmol/L Anion Gap (10-20) BUN (9-20) mg/dL Creatinine (0.8-1.5) mg/dL Est GFR ( Amer) Est GFR (Non-Af Amer) POC Glucose (mg/dL) 123 H 121 H (65-110) mg/dL Random Glucose (75-110) mg/dL Hemoglobin A1c (4.2-6.5) % Calcium (8.6-10.4) mg/dl Phosphorus (2.5-4.5) mg/dL Magnesium (1.6-2.3) mg/dL Total Bilirubin (0.2-1.3) mg/dL AST (17-59) U/L ALT (21-72) U/L Alkaline Phosphatase (38-126) U/L Total Protein (6.3-8.3) g/dL Albumin (3.5-5.0) g/dL Globulin (2.2-3.9) gm/dL Albumin/Globulin Ratio (1.0-2.1) Laboratory Results - last 24 hr 08/22/17 08/22/17 08/23/17 17:43 23:47 05:11 WBC RBC Hgb Hct MCV MCH MCHC RDW Plt Count MPV Neut % (Auto) Lymph % (Auto) [place] % (Auto) Eos % (Auto) Baso % (Auto) Neut # Lymph # [place] # Eos # Baso # Puncture Site Rr pCO2 33 L pO2 102 H HCO3 26.5 ABG pH 7.49 H ABG Total CO2 26.1 ABG O2 Saturation 98.3 H ABG Base Excess 2.0 ABG Hemoglobin 10.4 L ABG Carboxyhemoglobin 1.5 POC ABG HHb (Measured) 1.7 ABG Methemoglobin 0.8 Elder Test Pos A-a O2 Difference 142.0 Respiratory Index 1.4 Hgb O2 Saturation 95.9 Vent Mode Prvc Mechanical Rate 14 FiO2 40.0 Tidal Volume 500 PEEP 5 Sodium Potassium Chloride Carbon Dioxide Anion Gap BUN Creatinine Est GFR ( Amer) Est GFR (Non-Af Amer) POC Glucose (mg/dL) 121 H 123 H Random Glucose Hemoglobin A1c Calcium Phosphorus Magnesium Total Bilirubin AST ALT Alkaline Phosphatase Total Protein Albumin Globulin Albumin/Globulin Ratio 08/23/17 08/23/17 08/23/17 05:46 06:18 06:18 WBC 8.5 RBC 3.45 L Hgb 9.7 L Hct 31.4 L MCV 90.9 MCH 28.1 MCHC 30.9 L RDW 21.5 H Plt Count 156 MPV 9.2 Neut % (Auto) 66.6 Lymph % (Auto) 20.2 [place] % (Auto) 9.2 Eos % (Auto) 3.3 Baso % (Auto) 0.7 Neut # 5.7 Lymph # 1.7 [place] # 0.8 Eos # 0.3 Baso # 0.1 Puncture Site pCO2 pO2 HCO3 ABG pH ABG Total CO2 ABG O2 Saturation ABG Base Excess ABG Hemoglobin ABG Carboxyhemoglobin POC ABG HHb (Measured) ABG Methemoglobin Elder Test A-a O2 Difference Respiratory Index Hgb O2 Saturation Vent Mode Mechanical Rate FiO2 Tidal Volume PEEP Sodium 138 Potassium 4.4 Chloride 102 Carbon Dioxide 31 H Anion Gap 10 BUN 37 H Creatinine 2.1 H Est GFR ( Amer) 37 Est GFR (Non-Af Amer) 31 POC Glucose (mg/dL) 101 Random Glucose 86 Hemoglobin A1c Calcium 7.8 L Phosphorus 2.9 Magnesium 2.2 Total Bilirubin 0.8 AST 24 ALT 38 Alkaline Phosphatase 105 Total Protein 5.2 L Albumin 2.3 L Globulin 2.8 Albumin/Globulin Ratio 0.8 L 08/23/17 08/23/17 08/23/17 12:01 13:05 13:08 WBC RBC Hgb Hct MCV MCH MCHC RDW Plt Count MPV Neut % (Auto) Lymph % (Auto) [place] % (Auto) Eos % (Auto) Baso % (Auto) Neut # Lymph # [place] # Eos # Baso # Puncture Site pCO2 pO2 HCO3 ABG pH ABG Total CO2 ABG O2 Saturation ABG Base Excess ABG Hemoglobin ABG Carboxyhemoglobin POC ABG HHb (Measured) ABG Methemoglobin Elder Test A-a O2 Difference Respiratory Index Hgb O2 Saturation Vent Mode Mechanical Rate FiO2 Tidal Volume PEEP Sodium Potassium Chloride Carbon Dioxide Anion Gap BUN Creatinine Est GFR ( Amer) Est GFR (Non-Af Amer) POC Glucose (mg/dL) 134 H 141 H Random Glucose Hemoglobin A1c 5.0 Calcium Phosphorus Magnesium Total Bilirubin AST ALT Alkaline Phosphatase Total Protein Albumin Globulin Albumin/Globulin Ratio Fingerstick Blood Sugar Results: 101 Review of Systems - Review of Systems Systems not reviewed;Unavailable: Intubated Critical Care Progress Note - Nutrition Nutrition: Nutrition Category Date Time Status NPO Diet [DIET] Diets 08/16/17 Breakfast Active Assessment/Plan - Assessment and Plan (Free Text) Assessment: 82 y/o M with PMHx of CAD, HTN, CKD, dementia and obstructive uropathy requiring wise admitted 07/24 with lethargy and fever from the [facility]. Patient was transferred to the ICU on 08/21 due to respiratory distress. Plan: Respiratory: Intubated CXR 08/23 - Extensive bibasilar opacity unchanged. Probable small left pleural effusion. Lines and tubes unchanged. COPD Pneumonia Pleural effusion b/l s/p thoracentesis - f/u repeat thoracentesis today ABG - pCO2 33/pO2 102/HCO3 26.5/pH 7.49 - on vent settings of 500/40/14/5 Vanco 1gm IVPB TTS - discontinued (no indication for abx) Duoneb 3ml INH RQ6 Ativan 1mg IVP q2h Will have extra session of dialysis and thoracentesis today in hopes of optimizing chances of successful extubation later today. GI: s/p PEG insertion Flagyl - discontinued (no indication for abx) CV: CAD Plavix 75mg PO daily Started on Phenylephrine drip (due to extra HD today) Renal: Dr. Peterson consulted, help appreciated Hemodialysis TTS - will have extra session of HD today, see reason above Paricalcitol 2mcg IV TTS Midodrine 5mg PO TID - given one extra dose of 5mg PO given prior to start of dialysis : Finasteride 5mg PO daily Flomax .4mg PO daily Prophylactic Care: Heparin 5000u SC q8h Case discussed with Dr. Harsh Tirado Robbie PGY1 <Ayaan House - Last Filed: 08/23/17 17:38> CCU Objective - Vital Signs / Intake & Output Vital Signs (Last 4 hours): Vital Signs Temp Pulse Resp BP BP Pulse Ox 08/23/17 16:00 97.6 F 107 H 14 100 08/23/17 15:29 104 H 18 99/54 L 100 08/23/17 15:21 103 H 14 94/52 L 100 08/23/17 15:17 97 H 15 89/48 L 100 08/23/17 15:15 96 H 17 86/44 L 89/48 L 100 08/23/17 15:05 96 H 17 86/43 L 08/23/17 15:01 20 100 08/23/17 15:00 97 H 19 93/48 L 93/48 L 100 08/23/17 14:47 97 H 15 90/49 L 100 08/23/17 14:45 98 H 14 85/51 L 90/49 L 100 08/23/17 14:30 97 H 17 91/48 L 100 08/23/17 14:16 97 H 18 85/43 L 100 08/23/17 14:15 98 H 15 75/43 L 85/43 L 100 08/23/17 14:06 97 H 16 83/46 L 100 08/23/17 14:00 99 H 15 81/46 L 81/46 L 100 08/23/17 13:45 101 H 12 89/47 L 89/47 L 100 Intake and Output (Last 8hrs): Intake & Output 08/23/17 08/23/17 08/23/17 06:59 14:59 22:59 Intake Total 615 695 190 Balance 615 695 190 Weight 175 lb 1 oz Intake: IV 10 40 Intake, IV Amount 100 55 30 Right Medial Port 55 30 Internal Jugular Right Proximal Port 100 Internal Jugular Oral 160 Tube Feeding 355 480 120 Other 150 Other: # Bowel Movements 0 0 - Medications Active Medications: Active Medications Generic Name Dose Route Start Last Admin Trade Name Uday PRN Reason Stop Dose Admin Acetaminophen 650 mg 08/10/17 14:59 08/17/17 06:25 Tylenol 325mg Tab PO 650 mg Q4 PRN Administration Pain, moderate (4-7) Acetaminophen 650 mg 08/10/17 15:15 Tylenol 325mg Tab PO Q6 PRN FEVER ABOVE 101 OR NASCIMENTO Albuterol/Ipratropium 3 ml 08/19/17 11:30 08/23/17 13:51 Duoneb 3 Mg/0.5 Mg (3 Ml) Ud INH 3 ml RQ6 DAWIT Administration Ascorbic Acid 500 mg 08/02/17 10:15 08/23/17 09:54 Vitamin C 500 Mg Tab PO 500 mg DAILY DAWIT Administration Clopidogrel Bisulfate 75 mg 07/25/17 10:00 08/23/17 09:54 Plavix PO 75 mg DAILY DAWIT Administration Epoetin Jacobo 10,000 unit 08/10/17 10:00 08/22/17 11:31 Procrit IV 10,000 unit TTS DAWIT Administration Famotidine 20 mg 08/02/17 10:00 08/23/17 09:54 Pepcid PO 20 mg DAILY DAWIT Administration Finasteride 5 mg 07/25/17 10:00 08/23/17 09:54 Proscar PO 5 mg DAILY DAWIT Administration Heparin Sodium (Porcine) 5,000 units 08/22/17 14:00 08/23/17 14:53 Heparin SC 5,000 units Q8 DAWIT Administration Hydralazine HCl 10 mg 08/17/17 14:44 Apresoline PO BID DAWIT Phenylephrine HCl 30 mg/ 250 mls @ 10 mls/hr 08/23/17 11:00 08/23/17 17:23 Sodium Chloride IV 20 mcg/min .Q24H PRN 10 mls/hr TITRATE PER MD ORDER Titration Protocol 20 MCG/MIN Levothyroxine Sodium 25 mcg 07/25/17 06:30 08/23/17 05:30 Synthroid PO 25 mcg DAILY@0630 DAWIT Administration Lorazepam 1 mg 08/21/17 18:32 Ativan IVP Q2H PRN Agitation Megestrol Acetate 400 mg 08/13/17 10:00 08/23/17 09:54 Megace PO 400 mg DAILY DAWIT Administration Metoprolol Tartrate 25 mg 07/26/17 10:30 07/30/17 18:16 Lopressor PO Not Given BID [facility] Midodrine 5 mg 08/01/17 14:00 08/23/17 17:17 Proamatine PO 5 mg TID DAWIT Administration Multivitamins 1 tab 08/02/17 10:15 08/23/17 09:54 Hexavitamin PO 1 tab DAILY DAWIT Administration Paricalcitol 2 mcg 08/06/17 10:00 08/22/17 11:32 Zemplar IV 2 mcg TTS DAWIT Administration Tamsulosin HCl 0.4 mg 07/25/17 10:00 08/23/17 09:53 Flomax PO 0.4 mg DAILY DAWIT Administration - Patient Studies Lab Studies: Lab Studies 08/23/17 08/23/17 08/23/17 Range/Units 13:08 13:05 12:01 WBC (4.8-10.8) K/uL RBC (4.40-5.90) Mil/uL Hgb (12.0-18.0) g/dL Hct (35.0-51.0) % MCV (80.0-94.0) fL MCH (27.0-31.0) pg MCHC (33.0-37.0) g/dL RDW (11.5-14.5) % Plt Count (130-400) K/uL MPV (7.2-11.7) fL Neut % (Auto) (50.0-75.0) % Lymph % (Auto) (20.0-40.0) % [place] % (Auto) (0.0-10.0) % Eos % (Auto) (0.0-4.0) % Baso % (Auto) (0.0-2.0) % Neut # (1.8-7.0) K/uL Lymph # (1.0-4.3) K/uL [place] # (0.0-0.8) K/uL Eos # (0.0-0.7) K/uL Baso # (0.0-0.2) K/uL Puncture Site pCO2 (35-45) mm/Hg pO2 (80-100) mm/Hg HCO3 (21-28) mmol/L ABG pH (7.35-7.45) ABG Total CO2 (22-28) mmol/L ABG O2 Saturation (95-98) % ABG Base Excess (-2.0-3.0) mmol/L ABG Hemoglobin (11.7-17.4) g/dL ABG Carboxyhemoglobin (0.5-1.5) % POC ABG HHb (Measured) (0.0-5.0) % ABG Methemoglobin (0.0-3.0) % Elder Test A-a O2 Difference mm/Hg Respiratory Index Hgb O2 Saturation (95.0-98.0) % Vent Mode Mechanical Rate FiO2 % Tidal Volume PEEP Sodium (132-148) mmol/L Potassium (3.6-5.2) mmol/L Chloride (98-107) mmol/L Carbon Dioxide (22-30) mmol/L Anion Gap (10-20) BUN (9-20) mg/dL Creatinine (0.8-1.5) mg/dL Est GFR ( Amer) Est GFR (Non-Af Amer) POC Glucose (mg/dL) 141 H 134 H (65-110) mg/dL Random Glucose (75-110) mg/dL Hemoglobin A1c 5.0 (4.2-6.5) % Calcium (8.6-10.4) mg/dl Phosphorus (2.5-4.5) mg/dL Magnesium (1.6-2.3) mg/dL Total Bilirubin (0.2-1.3) mg/dL AST (17-59) U/L ALT (21-72) U/L Alkaline Phosphatase (38-126) U/L Total Protein (6.3-8.3) g/dL Albumin (3.5-5.0) g/dL Globulin (2.2-3.9) gm/dL Albumin/Globulin Ratio (1.0-2.1) 08/23/17 08/23/17 08/23/17 Range/Units 06:18 06:18 05:46 WBC 8.5 (4.8-10.8) K/uL RBC 3.45 L (4.40-5.90) Mil/uL Hgb 9.7 L (12.0-18.0) g/dL Hct 31.4 L (35.0-51.0) % MCV 90.9 (80.0-94.0) fL MCH 28.1 (27.0-31.0) pg MCHC 30.9 L (33.0-37.0) g/dL RDW 21.5 H (11.5-14.5) % Plt Count 156 (130-400) K/uL MPV 9.2 (7.2-11.7) fL Neut % (Auto) 66.6 (50.0-75.0) % Lymph % (Auto) 20.2 (20.0-40.0) % [place] % (Auto) 9.2 (0.0-10.0) % Eos % (Auto) 3.3 (0.0-4.0) % Baso % (Auto) 0.7 (0.0-2.0) % Neut # 5.7 (1.8-7.0) K/uL Lymph # 1.7 (1.0-4.3) K/uL [place] # 0.8 (0.0-0.8) K/uL Eos # 0.3 (0.0-0.7) K/uL Baso # 0.1 (0.0-0.2) K/uL Puncture Site pCO2 (35-45) mm/Hg pO2 (80-100) mm/Hg HCO3 (21-28) mmol/L ABG pH (7.35-7.45) ABG Total CO2 (22-28) mmol/L ABG O2 Saturation (95-98) % ABG Base Excess (-2.0-3.0) mmol/L ABG Hemoglobin (11.7-17.4) g/dL ABG Carboxyhemoglobin (0.5-1.5) % POC ABG HHb (Measured) (0.0-5.0) % ABG Methemoglobin (0.0-3.0) % Elder Test A-a O2 Difference mm/Hg Respiratory Index Hgb O2 Saturation (95.0-98.0) % Vent Mode Mechanical Rate FiO2 % Tidal Volume PEEP Sodium 138 (132-148) mmol/L Potassium 4.4 (3.6-5.2) mmol/L Chloride 102 (98-107) mmol/L Carbon Dioxide 31 H (22-30) mmol/L Anion Gap 10 (10-20) BUN 37 H (9-20) mg/dL Creatinine 2.1 H (0.8-1.5) mg/dL Est GFR ( Amer) 37 Est GFR (Non-Af Amer) 31 POC Glucose (mg/dL) 101 (65-110) mg/dL Random Glucose 86 (75-110) mg/dL Hemoglobin A1c (4.2-6.5) % Calcium 7.8 L (8.6-10.4) mg/dl Phosphorus 2.9 (2.5-4.5) mg/dL Magnesium 2.2 (1.6-2.3) mg/dL Total Bilirubin 0.8 (0.2-1.3) mg/dL AST 24 (17-59) U/L ALT 38 (21-72) U/L Alkaline Phosphatase 105 (38-126) U/L Total Protein 5.2 L (6.3-8.3) g/dL Albumin 2.3 L (3.5-5.0) g/dL Globulin 2.8 (2.2-3.9) gm/dL Albumin/Globulin Ratio 0.8 L (1.0-2.1) 08/23/17 08/22/17 08/22/17 Range/Units 05:11 23:47 17:43 WBC (4.8-10.8) K/uL RBC (4.40-5.90) Mil/uL Hgb (12.0-18.0) g/dL Hct (35.0-51.0) % MCV (80.0-94.0) fL MCH (27.0-31.0) pg MCHC (33.0-37.0) g/dL RDW (11.5-14.5) % Plt Count (130-400) K/uL MPV (7.2-11.7) fL Neut % (Auto) (50.0-75.0) % Lymph % (Auto) (20.0-40.0) % [place] % (Auto) (0.0-10.0) % Eos % (Auto) (0.0-4.0) % Baso % (Auto) (0.0-2.0) % Neut # (1.8-7.0) K/uL Lymph # (1.0-4.3) K/uL [place] # (0.0-0.8) K/uL Eos # (0.0-0.7) K/uL Baso # (0.0-0.2) K/uL Puncture Site Rr pCO2 33 L (35-45) mm/Hg pO2 102 H (80-100) mm/Hg HCO3 26.5 (21-28) mmol/L ABG pH 7.49 H (7.35-7.45) ABG Total CO2 26.1 (22-28) mmol/L ABG O2 Saturation 98.3 H (95-98) % ABG Base Excess 2.0 (-2.0-3.0) mmol/L ABG Hemoglobin 10.4 L (11.7-17.4) g/dL ABG Carboxyhemoglobin 1.5 (0.5-1.5) % POC ABG HHb (Measured) 1.7 (0.0-5.0) % ABG Methemoglobin 0.8 (0.0-3.0) % Elder Test Pos A-a O2 Difference 142.0 mm/Hg Respiratory Index 1.4 Hgb O2 Saturation 95.9 (95.0-98.0) % Vent Mode Prvc Mechanical Rate 14 FiO2 40.0 % Tidal Volume 500 PEEP 5 Sodium (132-148) mmol/L Potassium (3.6-5.2) mmol/L Chloride (98-107) mmol/L Carbon Dioxide (22-30) mmol/L Anion Gap (10-20) BUN (9-20) mg/dL Creatinine (0.8-1.5) mg/dL Est GFR ( Amer) Est GFR (Non-Af Amer) POC Glucose (mg/dL) 123 H 121 H (65-110) mg/dL Random Glucose (75-110) mg/dL Hemoglobin A1c (4.2-6.5) % Calcium (8.6-10.4) mg/dl Phosphorus (2.5-4.5) mg/dL Magnesium (1.6-2.3) mg/dL Total Bilirubin (0.2-1.3) mg/dL AST (17-59) U/L ALT (21-72) U/L Alkaline Phosphatase (38-126) U/L Total Protein (6.3-8.3) g/dL Albumin (3.5-5.0) g/dL Globulin (2.2-3.9) gm/dL Albumin/Globulin Ratio (1.0-2.1) Laboratory Results - last 24 hr 08/22/17 08/22/17 08/23/17 17:43 23:47 05:11 WBC RBC Hgb Hct MCV MCH MCHC RDW Plt Count MPV Neut % (Auto) Lymph % (Auto) [place] % (Auto) Eos % (Auto) Baso % (Auto) Neut # Lymph # [place] # Eos # Baso # Puncture Site Rr pCO2 33 L pO2 102 H HCO3 26.5 ABG pH 7.49 H ABG Total CO2 26.1 ABG O2 Saturation 98.3 H ABG Base Excess 2.0 ABG Hemoglobin 10.4 L ABG Carboxyhemoglobin 1.5 POC ABG HHb (Measured) 1.7 ABG Methemoglobin 0.8 Elder Test Pos A-a O2 Difference 142.0 Respiratory Index 1.4 Hgb O2 Saturation 95.9 Vent Mode Prvc Mechanical Rate 14 FiO2 40.0 Tidal Volume 500 PEEP 5 Sodium Potassium Chloride Carbon Dioxide Anion Gap BUN Creatinine Est GFR ( Amer) Est GFR (Non-Af Amer) POC Glucose (mg/dL) 121 H 123 H Random Glucose Hemoglobin A1c Calcium Phosphorus Magnesium Total Bilirubin AST ALT Alkaline Phosphatase Total Protein Albumin Globulin Albumin/Globulin Ratio 08/23/17 08/23/17 08/23/17 05:46 06:18 06:18 WBC 8.5 RBC 3.45 L Hgb 9.7 L Hct 31.4 L MCV 90.9 MCH 28.1 MCHC 30.9 L RDW 21.5 H Plt Count 156 MPV 9.2 Neut % (Auto) 66.6 Lymph % (Auto) 20.2 [place] % (Auto) 9.2 Eos % (Auto) 3.3 Baso % (Auto) 0.7 Neut # 5.7 Lymph # 1.7 [place] # 0.8 Eos # 0.3 Baso # 0.1 Puncture Site pCO2 pO2 HCO3 ABG pH ABG Total CO2 ABG O2 Saturation ABG Base Excess ABG Hemoglobin ABG Carboxyhemoglobin POC ABG HHb (Measured) ABG Methemoglobin Elder Test A-a O2 Difference Respiratory Index Hgb O2 Saturation Vent Mode Mechanical Rate FiO2 Tidal Volume PEEP Sodium 138 Potassium 4.4 Chloride 102 Carbon Dioxide 31 H Anion Gap 10 BUN 37 H Creatinine 2.1 H Est GFR ( Amer) 37 Est GFR (Non-Af Amer) 31 POC Glucose (mg/dL) 101 Random Glucose 86 Hemoglobin A1c Calcium 7.8 L Phosphorus 2.9 Magnesium 2.2 Total Bilirubin 0.8 AST 24 ALT 38 Alkaline Phosphatase 105 Total Protein 5.2 L Albumin 2.3 L Globulin 2.8 Albumin/Globulin Ratio 0.8 L 08/23/17 08/23/17 08/23/17 12:01 13:05 13:08 WBC RBC Hgb Hct MCV MCH MCHC RDW Plt Count MPV Neut % (Auto) Lymph % (Auto) [place] % (Auto) Eos % (Auto) Baso % (Auto) Neut # Lymph # [place] # Eos # Baso # Puncture Site pCO2 pO2 HCO3 ABG pH ABG Total CO2 ABG O2 Saturation ABG Base Excess ABG Hemoglobin ABG Carboxyhemoglobin POC ABG HHb (Measured) ABG Methemoglobin Elder Test A-a O2 Difference Respiratory Index Hgb O2 Saturation Vent Mode Mechanical Rate FiO2 Tidal Volume PEEP Sodium Potassium Chloride Carbon Dioxide Anion Gap BUN Creatinine Est GFR ( Amer) Est GFR (Non-Af Amer) POC Glucose (mg/dL) 134 H 141 H Random Glucose Hemoglobin A1c 5.0 Calcium Phosphorus Magnesium Total Bilirubin AST ALT Alkaline Phosphatase Total Protein Albumin Globulin Albumin/Globulin Ratio Critical Care Progress Note - Nutrition Nutrition: Nutrition Category Date Time Status NPO Diet [DIET] Diets 08/16/17 Breakfast Active Attending/Attestation - Attestation I have personally seen and examined this patient.: Yes I have fully participated in the care of the patient.: Yes I have reviewed all pertinent clinical information: Yes Notes (Text): 08/23/17 17:38 82yo M. PMHx of CAD, HTN, CKD, dementia. p/w AMS from obstructive uropathy with sepsis. Neuro: Alert and following commands Pulm: Acute respiratory failure secondary to metabolic encephalopathy from sepsis, on vent. Pulmonary edema with right lower lobe pleural effusion. CV: Relatively hypotensive, started on phenylephrine for dialysis. CAD continue Plavix. Hem: Anemia of chronic disease Renal: Normal hemodialysis schedule (//), extra dialysis session today, for fluid removal. Continue Midodrine for hypotension. Endo: No acute issues GI: Nothing by mouth, Nepro at 60 ID: No acute issues DVT proph - heparin subcutaneous GI proph - Pepcid wise for strict I/O's during acute illness Code status - will code Critical Care Time spent 35 minutes Multi-disciplinary rounds were performed with house staff, nursing, speech therapy, respiratory therapy, pharmacy and nutrition with integrated input from the primary team/attending and other consulting services. The documented time is cumulative and includes review of patient data/exams/labs/chart review and examination of the patient on rounds and throughout the day; time is exclusive of any procedures or teaching time.
--- NOTE | 2017-08-23 16:52 | CP.PCM.PN ---
Subjective - Date & Time of Evaluation Date of Evaluation: 08/23/17 Time of Evaluation: 09:00 - Subjective Subjective: intubated congested arousable NAD Objective - Vital Signs/Intake and Output Vital Signs (last 24 hours): Temp Pulse Resp BP Pulse Ox 97.6 F 107 H 14 99/54 L 100 08/23/17 16:00 08/23/17 16:00 08/23/17 16:00 08/23/17 15:29 08/23/17 16:00 Intake and Output: 08/23/17 08/23/17 06:59 18:59 Intake Total 945 845 Output Total 0 Balance 945 845 - Medications Medications: Current Medications Acetaminophen (Tylenol 325mg Tab) 650 mg PO Q4 PRN PRN Reason: Pain, moderate (4-7) Last Admin: 08/17/17 06:25 Dose: 650 mg Acetaminophen (Tylenol 325mg Tab) 650 mg PO Q6 PRN PRN Reason: FEVER ABOVE 101 OR NASCIMENTO Albuterol/Ipratropium (Duoneb 3 Mg/0.5 Mg (3 Ml) Ud) 3 ml INH RQ6 [facility] Last Admin: 08/23/17 13:51 Dose: 3 ml Ascorbic Acid (Vitamin C 500 Mg Tab) 500 mg PO DAILY [facility] Last Admin: 08/23/17 09:54 Dose: 500 mg Clopidogrel Bisulfate (Plavix) 75 mg PO DAILY [facility] Last Admin: 08/23/17 09:54 Dose: 75 mg Epoetin Jacobo (Procrit) 10,000 unit IV TTS [facility] Last Admin: 08/22/17 11:31 Dose: 10,000 unit Famotidine (Pepcid) 20 mg PO DAILY [facility] Last Admin: 08/23/17 09:54 Dose: 20 mg Finasteride (Proscar) 5 mg PO DAILY [facility] Last Admin: 08/23/17 09:54 Dose: 5 mg Heparin Sodium (Porcine) (Heparin) 5,000 units SC Q8 [facility] Last Admin: 08/23/17 14:53 Dose: 5,000 units Hydralazine HCl (Apresoline) 10 mg PO BID [facility] Phenylephrine HCl 30 mg/ (Sodium Chloride) 250 mls @ 10 mls/hr IV .Q24H PRN; Protocol; 20 MCG/MIN PRN Reason: TITRATE PER MD ORDER Last Titration: 08/23/17 12:37 Dose: 30 mcg/min, 15 mls/hr Levothyroxine Sodium (Synthroid) 25 mcg PO DAILY@0630 [facility] Last Admin: 08/23/17 05:30 Dose: 25 mcg Lorazepam (Ativan) 1 mg IVP Q2H PRN PRN Reason: Agitation Megestrol Acetate (Megace) 400 mg PO DAILY [facility] Last Admin: 08/23/17 09:54 Dose: 400 mg Metoprolol Tartrate (Lopressor) 25 mg PO BID [facility] Last Admin: 07/30/17 18:16 Dose: Not Given Midodrine (Proamatine) 5 mg PO TID [facility] Last Admin: 08/23/17 14:54 Dose: 5 mg Multivitamins (Hexavitamin) 1 tab PO DAILY [facility] Last Admin: 08/23/17 09:54 Dose: 1 tab Paricalcitol (Zemplar) 2 mcg IV TTS [facility] Last Admin: 08/22/17 11:32 Dose: 2 mcg Tamsulosin HCl (Flomax) 0.4 mg PO DAILY [facility] Last Admin: 08/23/17 09:53 Dose: 0.4 mg - Labs Labs: 08/23/17 06:18 08/23/17 06:18 PT 17.1 SECONDS (9.7-12.2) H 08/21/17 17:29 INR 1.5 08/21/17 17:29 APTT 34 SECONDS (21-34) 08/21/17 17:29 - Constitutional Appears: Non-toxic, Cachectic, Chronically Ill - Head Exam Head Exam: NORMOCEPHALIC - Eye Exam Eye Exam: PERRL - ENT Exam ENT Exam: Mucous Membranes Dry - Neck Exam Neck Exam: absent: Lymphadenopathy - Respiratory Exam Respiratory Exam: Decreased Breath Sounds - Cardiovascular Exam Cardiovascular Exam: REGULAR RHYTHM - GI/Abdominal Exam GI & Abdominal Exam: Distended Assessment and Plan (1) Fever Status: Acute (2) Leukocytosis Status: Acute (3) UTI (urinary tract infection) Status: Acute (4) Acute renal failure Status: Acute (5) Generalized weakness Status: Acute (6) Hyperkalemia Status: Acute (7) Troponin level elevated Status: Acute (8) UTI (urinary tract infection) due to Enterococcus Status: Acute (9) UTI (urinary tract infection) due to Enterococcus Status: Acute (10) UTI due to Klebsiella species Status: Acute (11) UTI due to Klebsiella species Status: Acute
--- NOTE | 2017-08-23 23:14 | CP.PCM.PN ---
Subjective - Date & Time of Evaluation Date of Evaluation: 08/23/17 Time of Evaluation: 22:00 - Subjective Subjective: Pt seen and examined at bedside, remians intubated FiO2 is 40%, congested, arousable ,NAD Objective - Vital Signs/Intake and Output Vital Signs (last 24 hours): Temp Pulse Resp BP Pulse Ox 97.6 F 107 H 16 108/63 100 08/23/17 16:00 08/23/17 19:00 08/23/17 19:00 08/23/17 18:29 08/23/17 19:00 Intake and Output: 08/23/17 08/24/17 18:59 06:59 Intake Total 1035 75 Output Total 2000 Balance -965 75 - Medications Medications: Current Medications Acetaminophen (Tylenol 325mg Tab) 650 mg PO Q4 PRN PRN Reason: Pain, moderate (4-7) Last Admin: 08/17/17 06:25 Dose: 650 mg Acetaminophen (Tylenol 325mg Tab) 650 mg PO Q6 PRN PRN Reason: FEVER ABOVE 101 OR NASCIMENTO Albuterol/Ipratropium (Duoneb 3 Mg/0.5 Mg (3 Ml) Ud) 3 ml INH RQ6 [facility] Last Admin: 08/23/17 20:43 Dose: 3 ml Ascorbic Acid (Vitamin C 500 Mg Tab) 500 mg PO DAILY [facility] Last Admin: 08/23/17 09:54 Dose: 500 mg Clopidogrel Bisulfate (Plavix) 75 mg PO DAILY [facility] Last Admin: 08/23/17 09:54 Dose: 75 mg Epoetin Jacobo (Procrit) 10,000 unit IV TTS [facility] Last Admin: 08/22/17 11:31 Dose: 10,000 unit Famotidine (Pepcid) 20 mg PO DAILY [facility] Last Admin: 08/23/17 09:54 Dose: 20 mg Finasteride (Proscar) 5 mg PO DAILY [facility] Last Admin: 08/23/17 09:54 Dose: 5 mg Heparin Sodium (Porcine) (Heparin) 5,000 units SC Q8 [facility] Last Admin: 08/23/17 21:59 Dose: 5,000 units Hydralazine HCl (Apresoline) 10 mg PO BID [facility] Phenylephrine HCl 30 mg/ (Sodium Chloride) 250 mls @ 10 mls/hr IV .Q24H PRN; Protocol; 20 MCG/MIN PRN Reason: TITRATE PER MD ORDER Last Titration: 08/23/17 17:23 Dose: 20 mcg/min, 10 mls/hr Levothyroxine Sodium (Synthroid) 25 mcg PO DAILY@0630 [facility] Last Admin: 08/23/17 05:30 Dose: 25 mcg Lorazepam (Ativan) 1 mg IVP Q2H PRN PRN Reason: Agitation Last Admin: 08/23/17 20:29 Dose: 1 mg Megestrol Acetate (Megace) 400 mg PO DAILY [facility] Last Admin: 08/23/17 09:54 Dose: 400 mg Metoprolol Tartrate (Lopressor) 25 mg PO BID [facility] Last Admin: 07/30/17 18:16 Dose: Not Given Midodrine (Proamatine) 5 mg PO TID [facility] Last Admin: 08/23/17 17:17 Dose: 5 mg Multivitamins (Hexavitamin) 1 tab PO DAILY [facility] Last Admin: 08/23/17 09:54 Dose: 1 tab Paricalcitol (Zemplar) 2 mcg IV TTS [facility] Last Admin: 08/22/17 11:32 Dose: 2 mcg Tamsulosin HCl (Flomax) 0.4 mg PO DAILY [facility] Last Admin: 08/23/17 09:53 Dose: 0.4 mg - Labs Labs: 08/23/17 06:18 08/23/17 06:18 PT 17.1 SECONDS (9.7-12.2) H 08/21/17 17:29 INR 1.5 08/21/17 17:29 APTT 34 SECONDS (21-34) 08/21/17 17:29 - Constitutional Appears: No Acute Distress, Chronically Ill - Head Exam Head Exam: ATRAUMATIC, NORMAL INSPECTION, NORMOCEPHALIC - Eye Exam Eye Exam: EOMI, Normal appearance, PERRL Pupil Exam: NORMAL ACCOMODATION, PERRL - Respiratory Exam Respiratory Exam: Decreased Breath Sounds, Rales, Rhonchi - Cardiovascular Exam Cardiovascular Exam: REGULAR RHYTHM, +S1, +S2. absent: Murmur - GI/Abdominal Exam GI & Abdominal Exam: Soft, Normal Bowel Sounds. absent: Tenderness Assessment and Plan (1) Fever Status: Acute (2) Leukocytosis Status: Acute (3) UTI (urinary tract infection) Status: Acute (4) Leg ulcer Status: Acute (5) Toxic metabolic encephalopathy Status: Acute (6) Pleural effusion Status: Acute (7) Respiratory failure Assessment & Plan: on MV attempt weaning Status: Acute (8) Renal failure Assessment & Plan: on Hemodialysis Status: Acute
[2017-08-24] MEDS: Albuterol-Ipratrop 3 mg / 0.5 (3 ml) UD INH SCH ×2 (01:50→08:06)
--- NOTE | 2017-08-24 02:52 | PN ---
DATE: FOLLOWUP RENAL CONSULTATION LOCATION: Patient is located in ICU bed 9. REQUESTED BY: Daniel Coyle MD REASON FOR FOLLOWUP: End-stage renal disease, for continuation of hemodialysis. HISTORY OF PRESENT ILLNESS: Mr. 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 Subsequently the patient was transferred to shelter; from there, patient was admitted on 07/24/2017 with chief complaints of altered mental status and shortness of breath, and found to have worsening renal function and UTI, status post code sepsis and shock liver, and worsening renal function requiring initiation of the hemodialysis. The patient is on hemodialysis 3 times a week. The patient was transferred back to ICU few days ago with respiratory failure and requiring intubation. The patient is on ventilator, arousable, following simple commands. The patient was dialyzed yesterday, had ultrafiltration of about 1.1 to 1.3 L, received call from ICU attending this morning requesting extra hemodialysis today. The patient is awake, remains intubated, following simple commands. PHYSICAL EXAMINATION: VITAL SIGNS: As follows, his blood pressure this morning 94/52, pulse 106, respirations about 19, and temperature 97.3. GENERAL: Mr. Cunningham is an 82-year-old elderly male, moderately built, moderate nourished, not in distress. HEENT: Pupils normal, and reactive to light and accommodation. Conjunctivae pink. On ventilator. Trachea is midline. LUNGS: Symmetric on both sides. Bilateral breath sounds present and decreased breath sounds at bases and bilateral crackles present. CARDIOVASCULAR: [place] at the fifth intercostal space, midclavicular line. S1 and S2 audible. No murmur or gallop. ABDOMEN: Normal in appearance, soft, tympanic. No guarding. No rigidity. No hepatosplenomegaly. The patient has a PEG tube. CENTRAL NERVOUS SYSTEM: The patient is alert, awake, on ventilator. EXTREMITIES: No cyanosis, no clubbing. The patient has 1 to 2+ edema in both upper and lower extremities. CURRENT MEDICATIONS: Include as follows, Ativan 1 mg IV push q. 2 hours p.r.n., DuoNeb inhaler, Flomax 0.4 mg p.o. daily, heparin 5000 units subcu q. 8 hours, multivitamin 1 tablet daily, Megace 400 mg p.o. daily, Pepcid 20 mg p.o. daily, phenylephrine 20 mcg per minute, Plavix 75 mg daily, midodrine 5 mg p.o. t.i.d., Procrit 10,000 units 3 times a week, Proscar 5 mg daily, Synthroid 25 mcg p.o. daily, Tylenol, vitamin C 500 mg p.o. daily, and Zemplar 2 mcg 3 times a week. LABORATORY DATA: As of 08/23/2017, WBC 8.5, hemoglobin 9.7, hematocrit is 31.4, platelets 156. PH 7.49, pCO2 of 33, pO2 of 102, bicarbonate 26.5, saturation 98.2. Vent settings, AC 14, 500 tidal volume, FiO2 40%, PEEP of 5. Chem-7, sodium 138, potassium 4.4, chloride 102, CO2 of 31, BUN 37, creatinine 2.1, glucose 86, calcium 7.8, phosphorus 2.9, magnesium 2.2. Total bilirubin 0.8. AST 24, ALT 38, alkaline phosphatase 105. Total protein 5.2, albumin 2.3. Chest x-ray, as of 08/23/2017, extensive bibasilar opacity, unchanged, probable small left pleural effusion. Lines and tubes unchanged. ASSESSMENT: In summary, Mr. 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 Subsequently, the patient was transferred to ICU for code sepsis and worsening LFTs, status post initiation of the hemodialysis with worsening renal function and subsequently transferred to ICU when the patient was stable, now the patient was admitted back to ICU with altered mental status and respiratory failure status post intubation and more alert. 1. End-stage renal disease. Continue hemodialysis 3 times a week. The patient is scheduled for extra hemodialysis and an ultrafiltration, just pure ultrafiltration, with a goal of about 2 L. 2. Anemia. Hemoglobin and hematocrit is slowly improving. 3. Acute respiratory failure secondary to pneumonia and congestive heart failure. PLAN: Continue vent support and repeat chest x-ray post dialysis, and we will schedule for regular dialysis in the a.m. Also we will try to ultrafiltrate as much as the patient can tolerate. Case discussed with the market consultant. We will also give albumin 25% 50 mL q.1 hour x2 doses during hemodialysis or ultrafiltration. Thank you for allowing me to participate in your patient's care. Overall prognosis is guarded Hernan Peterson MD
[2017-08-24 05:39] LABS: ABG ALLEN TEST POS; ABG MECHANICAL RATE 14; ARTERIAL BLOOD GAS MODE PRVC; ARTERIAL BLOOD HGB O2 SAT 96.4 % (95.0-98.0); ATERIAL BLOOD GAS PEEP 5; CARBOXYHEMOGLOBIN 1.7 % (0.5-1.5); DRAW SITE LR; HHB 1.7 % (0.0-5.0); METHEMOGLOBIN 0.3 % (0.0-3.0)
[2017-08-24] MEDS: Levothyroxine 25 MCG TAB PO SCH (06:34)
[2017-08-24 06:43] LABS: BASO # 0.1 K/uL (0.0-0.2); BASO % 0.6 % (0.0-2.0); EOS # 0.2 K/uL (0.0-0.7); HEMATOCRIT 30.3 % (35.0-51.0); LYMPH # 1.7 K/uL (1.0-4.3); LYMPH % 18.6 % (20.0-40.0); MEAN CELL VOLUME 89.7 fL (80.0-94.0); MEAN CORPUSCULAR HEMOGLOBIN 28.5 pg (27.0-31.0); MEAN CORPUSCULAR HGB CONC 31.8 g/dL (33.0-37.0); MEAN PLATELET VOLUME 8.8 fL (7.2-11.7); MONO # 0.7 K/uL (0.0-0.8); NRBC % 0.1 % (0.0-2.0); RED CELL DISTRIBUTION WIDTH 21.3 % (11.5-14.5); WHITE BLOOD COUNT 9.4 K/uL (4.8-10.8)
[2017-08-24 06:59] LABS: ALB/GLOB RATIO 0.7 (1.0-2.1); BILIRUBIN,TOTAL 0.5 mg/dL (0.2-1.3); CALCIUM 8.4 mg/dl (8.6-10.4); MAGNESIUM 2.3 mg/dL (1.6-2.3); PHOSPHOROUS 2.5 mg/dL (2.5-4.5); POTASSIUM 4.3 mmol/L (3.6-5.2); TOTAL PROTEIN 6.1 g/dL (6.3-8.3)
--- NOTE | 2017-08-24 08:36 | RAD ---
HISTORY: intubated,pleural effusion COMPARISON: Portable chest 08/23/2017. FINDINGS: Endotracheal tube, right central venous line and total right central venous dialysis catheter unchanged in position. Sternotomy wires are again identified. There is improved technique. LUNGS: Left basilar airspace disease is stable remaining relatively prominent the left base with limited new interval mild component suggests at the right base. PLEURA: Minimal left pleural effusion remains with none on the right. No pneumothorax bilaterally. CARDIOVASCULAR: Prominent cardiac silhouette is stable though potentially technically magnified. OSSEOUS STRUCTURES: No significant abnormalities. VISUALIZED UPPER ABDOMEN: Normal. OTHER FINDINGS: None. IMPRESSION: Limited interval worsening including dense infiltrate at the left base and new patchy atelectasis or infiltrate at the right base. Limited left pleural effusion not significantly changed.
[2017-08-24] MEDS: Multiple Vitamins Tab PO SCH (09:52)
[2017-08-24] MEDS: Megestrol Acetate 40 mg/ml Cup PO SCH (09:52)
--- NOTE | 2017-08-24 10:05 | CP.PCM.PN ---
Subjective - Date & Time of Evaluation Date of Evaluation: 08/24/17 Time of Evaluation: 08:25 - Subjective Subjective: the patient seen and examined. Tolerated CPAP yesterday Awake on ventilatory support PRVC mode FiO2 50% For hemodialysis Tolerating feeding Objective - Vital Signs/Intake and Output Vital Signs (last 24 hours): Temp Pulse Resp BP Pulse Ox 97.2 F L 107 H 21 106/55 L 100 08/24/17 08:00 08/24/17 09:00 08/24/17 09:00 08/24/17 08:29 08/24/17 09:00 Intake and Output: 08/24/17 08/24/17 06:59 18:59 Intake Total 900 225 Balance 900 225 - Medications Medications: Current Medications Acetaminophen (Tylenol 325mg Tab) 650 mg PO Q4 PRN PRN Reason: Pain, moderate (4-7) Last Admin: 08/17/17 06:25 Dose: 650 mg Acetaminophen (Tylenol 325mg Tab) 650 mg PO Q6 PRN PRN Reason: FEVER ABOVE 101 OR NASCIMENTO Albuterol/Ipratropium (Duoneb 3 Mg/0.5 Mg (3 Ml) Ud) 3 ml INH RQ6 [facility] Last Admin: 08/24/17 08:06 Dose: 3 ml Ascorbic Acid (Vitamin C 500 Mg Tab) 500 mg PO DAILY [facility] Last Admin: 08/24/17 09:52 Dose: 500 mg Clopidogrel Bisulfate (Plavix) 75 mg PO DAILY [facility] Last Admin: 08/24/17 09:52 Dose: 75 mg Epoetin Jacobo (Procrit) 10,000 unit IV TTS [facility] Last Admin: 08/22/17 11:31 Dose: 10,000 unit Famotidine (Pepcid) 20 mg PO DAILY [facility] Last Admin: 08/24/17 09:52 Dose: 20 mg Finasteride (Proscar) 5 mg PO DAILY [facility] Last Admin: 08/24/17 09:52 Dose: 5 mg Heparin Sodium (Porcine) (Heparin) 5,000 units SC Q8 [facility] Last Admin: 08/24/17 06:30 Dose: 5,000 units Hydralazine HCl (Apresoline) 10 mg PO BID [facility] Phenylephrine HCl 30 mg/ (Sodium Chloride) 250 mls @ 10 mls/hr IV .Q24H PRN; Protocol; 20 MCG/MIN PRN Reason: TITRATE PER MD ORDER Last Titration: 08/23/17 17:23 Dose: 20 mcg/min, 10 mls/hr Levothyroxine Sodium (Synthroid) 25 mcg PO DAILY@0630 [facility] Last Admin: 08/24/17 06:34 Dose: 25 mcg Lorazepam (Ativan) 1 mg IVP Q2H PRN PRN Reason: Agitation Last Admin: 08/23/17 20:29 Dose: 1 mg Megestrol Acetate (Megace) 400 mg PO DAILY [facility] Last Admin: 08/24/17 09:52 Dose: 400 mg Metoprolol Tartrate (Lopressor) 25 mg PO BID [facility] Last Admin: 07/30/17 18:16 Dose: Not Given Midodrine (Proamatine) 5 mg PO TID [facility] Last Admin: 08/24/17 09:56 Dose: 5 mg Multivitamins (Hexavitamin) 1 tab PO DAILY [facility] Last Admin: 08/24/17 09:52 Dose: 1 tab Paricalcitol (Zemplar) 2 mcg IV TTS [facility] Last Admin: 08/22/17 11:32 Dose: 2 mcg Tamsulosin HCl (Flomax) 0.4 mg PO DAILY [facility] Last Admin: 08/24/17 09:52 Dose: 0.4 mg - Labs Labs: 08/24/17 06:30 08/24/17 06:32 PT 17.1 SECONDS (9.7-12.2) H 08/21/17 17:29 INR 1.5 08/21/17 17:29 APTT 34 SECONDS (21-34) 08/21/17 17:29 - Head Exam Head Exam: ATRAUMATIC, NORMOCEPHALIC - Neck Exam Neck Exam: Normal Inspection - Respiratory Exam Respiratory Exam: Decreased Breath Sounds - Cardiovascular Exam Cardiovascular Exam: REGULAR RHYTHM - GI/Abdominal Exam GI & Abdominal Exam: Soft, Normal Bowel Sounds - Extremities Exam Extremities Exam: Normal Inspection - Neurological Exam Neurological Exam: Awake Assessment and Plan (1) Respiratory failure Assessment & Plan: Continue weaning Continued nebulizer treatment, antibiotics and feeding Continue hemodialysis Status: Acute (2) Pleural effusion Status: Acute (3) Pneumonia Status: Acute (4) Dyspnea Status: Acute
--- NOTE | 2017-08-24 12:11 | PN ---
DATE: LOCATION: ICU 9. SUBJECTIVE: This is an 82-year-old male seen and examined in rounds without significant clinical changes. No reported active bleeding and the patient is post hemodialysis yesterday. Due to his pleural effusion, the patient was scheduled for thoracocentesis and the most recent chest x-ray from yesterday showed extensive bibasilar opacity unchanged with probable small left pleural effusion. The patient still intubated. The entire chart is reviewed including but not limited to the most recent lab and radiology study results, current and the previous medication list, current and the previous medical events and today's labs showed hemoglobin dropped to 9.6, hematocrit 30.3, but normal platelet count with abnormal ABGs with BUN of 48, creatinine 2.6 with increased blood glucose level 136 and low albumin 2.6, low total protein 6.1. The patient so far tolerating PEG feeding well. PHYSICAL EXAMINATION: GENERAL: An 82-year-old male. VITAL SIGNS: Afebrile with pulse of 100, blood pressure of 104/54. HEENT: Showed pale, dry oral mucous membrane. Nonicteric sclerae. LUNGS: Few scattered crepitation. Decreased air entry at bases. HEART: Positive S1 and S2 with increased rate. ABDOMEN: Soft. Bowel sounds are present. PEG tube is in place with evidence of slight anterior abdominal wall cellulitis. No residual bleeding or resistance. EXTREMITIES: Lower extremities edematous changes. No clubbing or cyanosis. NEUROLOGIC: No reported new neurological deficits, focal, sensory, or motor. IMPRESSION: 1. Malnutrition. 2. Statu post percutaneous endoscopic gastrostomy insertion. 3. Hypoalbuminemia. 4. Pneumonia, respiratory failure. The patient is intubated to ventilator. 5. End-stage renal disease, on hemodialysis. 6. Anemia secondary to above. 7. Hypertension, congestive heart failure with known history of coronary artery disease with status post coronary artery bypass graft. SUGGESTION: 1. Continue suppurative treatment. 2. Subsequent increase of rate of PEG feeding as tolerated. Katia Pardo MD
--- NOTE | 2017-08-24 16:28 | CT ---
PROCEDURE: CT Chest without contrast HISTORY: assess pleural effusions COMPARISON: Enhanced chest CT 08/14/2017. TECHNIQUE: Contiguous axial images were obtained through the chest without intravenous contrast enhancement. Sagittal and coronal reconstructions were performed. Radiation dose (DLP): 654.98 mGy-cm. This CT exam was performed using one or more of the following dose reduction techniques: Automated exposure control, adjustment of the mA and/or kV according to patient size, and/or use of iterative reconstruction technique. FINDINGS: LUNGS: Compressive atelectasis identified in the bilateral lower lobes fibrotic changes again seen the nondependent bilateral upper lobes minimally. Right central venous dialysis catheter again noted in position with the endotracheal tube identified terminating in the mid trachea in the interval. No pneumothorax bilaterally. No definitive mass within aerated lung. MEDIASTINUM: Stable mild thoracic aortic aneurysm again appreciated at the ascending segment alone. Diminished pulmonary venous congestion. Upper limits normal size heart appreciated post CABG, stable in the interval including extensive coronary artery calcifications. Main pulmonary artery unremarkable. No lymphadenopathy. PLEURA: Diminishing pleural effusions are identified bilaterally appearing moderate in volume overall bilaterally. BONES: [place] margins in and there is advanced multilevel thoracolumbar spondylosis. UPPER ABDOMEN: Stable. OTHER FINDINGS: None. IMPRESSION: Slowly diminishing bilateral pleural effusions with significant residual noted bilaterally. These exert compressive atelectasis very mildly on the bilateral dependent lower lobes with trace nondependent fibrotic changes again seen the anterior margins of the bilateral upper lobes Diminishing pulmonary venous congestion. Ascending thoracic aortic aneurysm again appreciated.
--- NOTE | 2017-08-24 16:51 | CP.CCUPN ---
CCU Subjective - Physician Review Events Since Last Encounter (Free Text): 08/24/17 16:48 alert, follows some commands, weak. CCU Objective - Vital Signs / Intake & Output Vital Signs (Last 4 hours): Vital Signs Temp Pulse Resp BP Pulse Ox 08/24/17 16:00 99.4 F 110 H 25 H 100 08/24/17 15:30 111 H 24 104/60 100 08/24/17 15:00 112 H 21 100 08/24/17 14:29 111 H 26 H 111/61 100 08/24/17 14:00 110 H 22 100 08/24/17 13:29 110 H 14 101/58 L 100 08/24/17 13:00 111 H 21 100 Intake and Output (Last 8hrs): Intake & Output 08/24/17 08/24/17 08/24/17 06:59 14:59 22:59 Intake Total 600 550 130 Balance 600 550 130 Intake: Intake, IV Amount 80 30 Right Medial Port 80 30 Internal Jugular Tube Feeding 520 520 130 Other: # Bowel Movements 0 0 - Physical Exam Head: Positive for: Atraumatic, Normocephalic, Other (intubated) Extroacular Muscles: Positive for: EOMI Conjunctiva: Positive for: Normal Mouth: Positive for: Moist Mucous Membranes Neck: Positive for: Other Respiratory/Chest: Positive for: Good Air Exchange, Rhonchi, Other (intubated). Negative for: Respiratory Distress, Accessory Muscle Use Cardiovascular: Positive for: Regular Rate and Rhythm Abdomen: Negative for: Tenderness, Distention Lower Extremity: Positive for: Edema, Other (dressings clean/ dry/ intact) Skin: Positive for: Warm, Normal Color, Other (right arm, hyperpigmentation with blister resolving on right arm, BP cuff on left arm, right arm swelling improved) Psychiatric: Positive for: Alert (follows people in room with his eye and by turning his head ) - Medications Active Medications: Active Medications Generic Name Dose Route Start Last Admin Trade Name Freq PRN Reason Stop Dose Admin Acetaminophen 650 mg 08/10/17 14:59 08/17/17 06:25 Tylenol 325mg Tab PO 650 mg Q4 PRN Administration Pain, moderate (4-7) Acetaminophen 650 mg 08/10/17 15:15 Tylenol 325mg Tab PO Q6 PRN FEVER ABOVE 101 OR NASCIMENTO Ascorbic Acid 500 mg 08/02/17 10:15 08/24/17 09:52 Vitamin C 500 Mg Tab PO 500 mg DAILY DAWIT Administration Clopidogrel Bisulfate 75 mg 07/25/17 10:00 08/24/17 09:52 Plavix PO 75 mg DAILY DAWIT Administration Epoetin Jacobo 10,000 unit 08/10/17 10:00 08/22/17 11:31 Procrit IV 10,000 unit TTS DAWIT Administration Famotidine 20 mg 08/02/17 10:00 08/24/17 09:52 Pepcid PO 20 mg DAILY DAWIT Administration Finasteride 5 mg 07/25/17 10:00 08/24/17 09:52 Proscar PO 5 mg DAILY DAWIT Administration Heparin Sodium (Porcine) 5,000 units 08/22/17 14:00 08/24/17 14:21 Heparin SC 5,000 units Q8 DAWIT Administration Hydralazine HCl 10 mg 08/17/17 14:44 Apresoline PO BID DAWIT Phenylephrine HCl 30 mg/ 250 mls @ 10 mls/hr 08/23/17 11:00 08/23/17 17:23 Sodium Chloride IV 20 mcg/min .Q24H PRN 10 mls/hr TITRATE PER MD ORDER Titration Protocol 20 MCG/MIN Levothyroxine Sodium 25 mcg 07/25/17 06:30 08/24/17 06:34 Synthroid PO 25 mcg DAILY@0630 DAWIT Administration Lorazepam 1 mg 08/21/17 18:32 08/23/17 20:29 Ativan IVP 1 mg Q2H PRN Administration Agitation Megestrol Acetate 400 mg 08/13/17 10:00 08/24/17 09:52 Megace PO 400 mg DAILY DAWIT Administration Metoprolol Tartrate 25 mg 07/26/17 10:30 07/30/17 18:16 Lopressor PO Not Given BID DAWIT Midodrine 5 mg 08/01/17 14:00 08/24/17 14:21 Proamatine PO 5 mg TID DAWIT Administration Multivitamins 1 tab 08/02/17 10:15 08/24/17 09:52 Hexavitamin PO 1 tab DAILY DAWIT Administration Paricalcitol 2 mcg 08/06/17 10:00 08/22/17 11:32 Zemplar IV 2 mcg TTS DAWIT Administration Tamsulosin HCl 0.4 mg 07/25/17 10:00 08/24/17 09:52 Flomax PO 0.4 mg DAILY DAWIT Administration - Patient Studies Lab Studies: Lab Studies 08/24/17 08/24/17 08/24/17 Range/Units 11:55 06:32 06:30 WBC 9.4 (4.8-10.8) K/uL RBC 3.38 L (4.40-5.90) Mil/uL Hgb 9.6 L (12.0-18.0) g/dL Hct 30.3 L (35.0-51.0) % MCV 89.7 (80.0-94.0) fL MCH 28.5 (27.0-31.0) pg MCHC 31.8 L (33.0-37.0) g/dL RDW 21.3 H (11.5-14.5) % Plt Count 139 (130-400) K/uL MPV 8.8 (7.2-11.7) fL Neut % (Auto) 71.8 (50.0-75.0) % Lymph % (Auto) 18.6 L (20.0-40.0) % [place] % (Auto) 7.0 (0.0-10.0) % Eos % (Auto) 2.0 (0.0-4.0) % Baso % (Auto) 0.6 (0.0-2.0) % Neut # 6.7 (1.8-7.0) K/uL Lymph # 1.7 (1.0-4.3) K/uL Corson # 0.7 (0.0-0.8) K/uL Eos # 0.2 (0.0-0.7) K/uL Baso # 0.1 (0.0-0.2) K/uL Puncture Site pCO2 (35-45) mm/Hg pO2 (80-100) mm/Hg HCO3 (21-28) mmol/L ABG pH (7.35-7.45) ABG Total CO2 (22-28) mmol/L ABG O2 Saturation (95-98) % ABG Base Excess (-2.0-3.0) mmol/L ABG Hemoglobin (11.7-17.4) g/dL ABG Carboxyhemoglobin (0.5-1.5) % POC ABG HHb (Measured) (0.0-5.0) % ABG Methemoglobin (0.0-3.0) % Elder Test A-a O2 Difference mm/Hg Respiratory Index Hgb O2 Saturation (95.0-98.0) % Vent Mode Mechanical Rate FiO2 % Tidal Volume PEEP Sodium 137 (132-148) mmol/L Potassium 4.3 (3.6-5.2) mmol/L Chloride 101 (98-107) mmol/L Carbon Dioxide 33 H (22-30) mmol/L Anion Gap 8 L (10-20) BUN 48 H (9-20) mg/dL Creatinine 2.6 H (0.8-1.5) mg/dL Est GFR ( Amer) 29 Est GFR (Non-Af Amer) 24 POC Glucose (mg/dL) 137 H (65-110) mg/dL Random Glucose 116 H (75-110) mg/dL Calcium 8.4 L (8.6-10.4) mg/dl Phosphorus 2.5 (2.5-4.5) mg/dL Magnesium 2.3 (1.6-2.3) mg/dL Total Bilirubin 0.5 (0.2-1.3) mg/dL AST 22 (17-59) U/L ALT 35 (21-72) U/L Alkaline Phosphatase 142 H D (38-126) U/L Total Protein 6.1 L (6.3-8.3) g/dL Albumin 2.6 L (3.5-5.0) g/dL Globulin 3.5 (2.2-3.9) gm/dL Albumin/Globulin Ratio 0.7 L (1.0-2.1) 08/24/17 08/24/17 08/24/17 Range/Units 06:03 05:20 00:06 WBC (4.8-10.8) K/uL RBC (4.40-5.90) Mil/uL Hgb (12.0-18.0) g/dL Hct (35.0-51.0) % MCV (80.0-94.0) fL MCH (27.0-31.0) pg MCHC (33.0-37.0) g/dL RDW (11.5-14.5) % Plt Count (130-400) K/uL MPV (7.2-11.7) fL Neut % (Auto) (50.0-75.0) % Lymph % (Auto) (20.0-40.0) % [place] % (Auto) (0.0-10.0) % Eos % (Auto) (0.0-4.0) % Baso % (Auto) (0.0-2.0) % Neut # (1.8-7.0) K/uL Lymph # (1.0-4.3) K/uL [place] # (0.0-0.8) K/uL Eos # (0.0-0.7) K/uL Baso # (0.0-0.2) K/uL Puncture Site Lr pCO2 35 (35-45) mm/Hg pO2 87 (80-100) mm/Hg HCO3 29.2 H (21-28) mmol/L ABG pH 7.52 H (7.35-7.45) ABG Total CO2 29.7 H (22-28) mmol/L ABG O2 Saturation 98.3 H (95-98) % ABG Base Excess 5.5 H (-2.0-3.0) mmol/L ABG Hemoglobin 9.5 L (11.7-17.4) g/dL ABG Carboxyhemoglobin 1.7 H (0.5-1.5) % POC ABG HHb (Measured) 1.7 (0.0-5.0) % ABG Methemoglobin 0.3 (0.0-3.0) % Elder Test Pos A-a O2 Difference 154.0 mm/Hg Respiratory Index 1.8 Hgb O2 Saturation 96.4 (95.0-98.0) % Vent Mode Prvc Mechanical Rate 14 FiO2 40.0 % Tidal Volume 500 PEEP 5 Sodium (132-148) mmol/L Potassium (3.6-5.2) mmol/L Chloride (98-107) mmol/L Carbon Dioxide (22-30) mmol/L Anion Gap (10-20) BUN (9-20) mg/dL Creatinine (0.8-1.5) mg/dL Est GFR ( Amer) Est GFR (Non-Af Amer) POC Glucose (mg/dL) 136 H 118 H (65-110) mg/dL Random Glucose (75-110) mg/dL Calcium (8.6-10.4) mg/dl Phosphorus (2.5-4.5) mg/dL Magnesium (1.6-2.3) mg/dL Total Bilirubin (0.2-1.3) mg/dL AST (17-59) U/L ALT (21-72) U/L Alkaline Phosphatase (38-126) U/L Total Protein (6.3-8.3) g/dL Albumin (3.5-5.0) g/dL Globulin (2.2-3.9) gm/dL Albumin/Globulin Ratio (1.0-2.1) 08/23/17 Range/Units 17:33 WBC (4.8-10.8) K/uL RBC (4.40-5.90) Mil/uL Hgb (12.0-18.0) g/dL Hct (35.0-51.0) % MCV (80.0-94.0) fL MCH (27.0-31.0) pg MCHC (33.0-37.0) g/dL RDW (11.5-14.5) % Plt Count (130-400) K/uL MPV (7.2-11.7) fL Neut % (Auto) (50.0-75.0) % Lymph % (Auto) (20.0-40.0) % [place] % (Auto) (0.0-10.0) % Eos % (Auto) (0.0-4.0) % Baso % (Auto) (0.0-2.0) % Neut # (1.8-7.0) K/uL Lymph # (1.0-4.3) K/uL [place] # (0.0-0.8) K/uL Eos # (0.0-0.7) K/uL Baso # (0.0-0.2) K/uL Puncture Site pCO2 (35-45) mm/Hg pO2 (80-100) mm/Hg HCO3 (21-28) mmol/L ABG pH (7.35-7.45) ABG Total CO2 (22-28) mmol/L ABG O2 Saturation (95-98) % ABG Base Excess (-2.0-3.0) mmol/L ABG Hemoglobin (11.7-17.4) g/dL ABG Carboxyhemoglobin (0.5-1.5) % POC ABG HHb (Measured) (0.0-5.0) % ABG Methemoglobin (0.0-3.0) % Elder Test A-a O2 Difference mm/Hg Respiratory Index Hgb O2 Saturation (95.0-98.0) % Vent Mode Mechanical Rate FiO2 % Tidal Volume PEEP Sodium (132-148) mmol/L Potassium (3.6-5.2) mmol/L Chloride (98-107) mmol/L Carbon Dioxide (22-30) mmol/L Anion Gap (10-20) BUN (9-20) mg/dL Creatinine (0.8-1.5) mg/dL Est GFR ( Amer) Est GFR (Non-Af Amer) POC Glucose (mg/dL) 121 H (65-110) mg/dL Random Glucose (75-110) mg/dL Calcium (8.6-10.4) mg/dl Phosphorus (2.5-4.5) mg/dL Magnesium (1.6-2.3) mg/dL Total Bilirubin (0.2-1.3) mg/dL AST (17-59) U/L ALT (21-72) U/L Alkaline Phosphatase (38-126) U/L Total Protein (6.3-8.3) g/dL Albumin (3.5-5.0) g/dL Globulin (2.2-3.9) gm/dL Albumin/Globulin Ratio (1.0-2.1) Laboratory Results - last 24 hr 08/23/17 08/24/17 08/24/17 17:33 00:06 05:20 WBC RBC Hgb Hct MCV MCH MCHC RDW Plt Count MPV Neut % (Auto) Lymph % (Auto) [place] % (Auto) Eos % (Auto) Baso % (Auto) Neut # Lymph # [place] # Eos # Baso # Puncture Site Lr pCO2 35 pO2 87 HCO3 29.2 H ABG pH 7.52 H ABG Total CO2 29.7 H ABG O2 Saturation 98.3 H ABG Base Excess 5.5 H ABG Hemoglobin 9.5 L ABG Carboxyhemoglobin 1.7 H POC ABG HHb (Measured) 1.7 ABG Methemoglobin 0.3 Elder Test Pos A-a O2 Difference 154.0 Respiratory Index 1.8 Hgb O2 Saturation 96.4 Vent Mode Prvc Mechanical Rate 14 FiO2 40.0 Tidal Volume 500 PEEP 5 Sodium Potassium Chloride Carbon Dioxide Anion Gap BUN Creatinine Est GFR ( Amer) Est GFR (Non-Af Amer) POC Glucose (mg/dL) 121 H 118 H Random Glucose Calcium Phosphorus Magnesium Total Bilirubin AST ALT Alkaline Phosphatase Total Protein Albumin Globulin Albumin/Globulin Ratio 08/24/17 08/24/17 08/24/17 06:03 06:30 06:32 WBC 9.4 RBC 3.38 L Hgb 9.6 L Hct 30.3 L MCV 89.7 MCH 28.5 MCHC 31.8 L RDW 21.3 H Plt Count 139 MPV 8.8 Neut % (Auto) 71.8 Lymph % (Auto) 18.6 L [place] % (Auto) 7.0 Eos % (Auto) 2.0 Baso % (Auto) 0.6 Neut # 6.7 Lymph # 1.7 [place]on # 0.7 Eos # 0.2 Baso # 0.1 Puncture Site pCO2 pO2 HCO3 ABG pH ABG Total CO2 ABG O2 Saturation ABG Base Excess ABG Hemoglobin ABG Carboxyhemoglobin POC ABG HHb (Measured) ABG Methemoglobin Elder Test A-a O2 Difference Respiratory Index Hgb O2 Saturation Vent Mode Mechanical Rate FiO2 Tidal Volume PEEP Sodium 137 Potassium 4.3 Chloride 101 Carbon Dioxide 33 H Anion Gap 8 L BUN 48 H Creatinine 2.6 H Est GFR ( Amer) 29 Est GFR (Non-Af Amer) 24 POC Glucose (mg/dL) 136 H Random Glucose 116 H Calcium 8.4 L Phosphorus 2.5 Magnesium 2.3 Total Bilirubin 0.5 AST 22 ALT 35 Alkaline Phosphatase 142 H D Total Protein 6.1 L Albumin 2.6 L Globulin 3.5 Albumin/Globulin Ratio 0.7 L 08/24/17 11:55 WBC RBC Hgb Hct MCV MCH MCHC RDW Plt Count MPV Neut % (Auto) Lymph % (Auto) [place] % (Auto) Eos % (Auto) Baso % (Auto) Neut # Lymph # [place] # Eos # Baso # Puncture Site pCO2 pO2 HCO3 ABG pH ABG Total CO2 ABG O2 Saturation ABG Base Excess ABG Hemoglobin ABG Carboxyhemoglobin POC ABG HHb (Measured) ABG Methemoglobin Elder Test A-a O2 Difference Respiratory Index Hgb O2 Saturation Vent Mode Mechanical Rate FiO2 Tidal Volume PEEP Sodium Potassium Chloride Carbon Dioxide Anion Gap BUN Creatinine Est GFR ( Amer) Est GFR (Non-Af Amer) POC Glucose (mg/dL) 137 H Random Glucose Calcium Phosphorus Magnesium Total Bilirubin AST ALT Alkaline Phosphatase Total Protein Albumin Globulin Albumin/Globulin Ratio Fingerstick Blood Sugar Results: 136 Review of Systems - Review of Systems Systems not reviewed;Unavailable: Intubated Critical Care Progress Note - Nutrition Nutrition: Nutrition Category Date Time Status NPO Diet [DIET] Diets 08/16/17 Breakfast Active Assessment/Plan (1) Pulmonary edema cardiac cause Assessment and plan: 82yo M. PMHx of CAD, HTN, CKD, dementia. p/w AMS from obstructive uropathy with sepsis. Neuro: Alert and following commands Pulm: Acute respiratory failure secondary to metabolic encephalopathy from sepsis, on vent. Pulmonary edema improved with dialysis, bilateral effusions mild to moderate in size, should not impact pulmonary mechanics. tolerating PS trials x 2 days. Will extubate in am tomorrow. CV: Relatively hypotensive, started on phenylephrine for dialysis only. CAD continue Plavix. Hem: Anemia of chronic disease Renal: Normal hemodialysis schedule (//), extra dialysis session today, for fluid removal. Continue Midodrine for hypotension. Endo: No acute issues GI: Nothing by mouth, Nepro at 60 ID: No acute issues DVT proph - heparin subcutaneous GI proph - Pepcid wise for strict I/O's during acute illness Code status - will code Critical Care Time spent 35 minutes Multi-disciplinary rounds were performed with house staff, nursing, speech therapy, respiratory therapy, pharmacy and nutrition with integrated input from the primary team/attending and other consulting services. The documented time is cumulative and includes review of patient data/exams/labs/chart review and examination of the patient on rounds and throughout the day; time is exclusive of any procedures or teaching time. Current Visit: Yes Status: Acute
--- NOTE | 2017-08-24 17:19 | CARD ---
APPROVED REPORT EXAM: Two-dimensional and M-mode echocardiogram with Doppler and color Doppler. Other Information Quality : AverageRhythm : NSR INDICATION Dyspnea Pleural Effusion CAD FEVER M-Mode DIMENSIONS RVDd1.32 (2.1-3.2cm)Left Atrium (MM)3.89 (2.5-4.0cm) IVSd0.62 (0.7-1.1cm)Aortic Root3.89 (2.2-3.7cm) LVDd6.66 (4.0-5.6cm)Aortic Cusp Exc.0.52 (1.5-2.0cm) PWd0.73 (0.7-1.1cm)FS (%) 11 % LVDs5.90 (2.0-3.8cm)LVEF (%)24 (>50%) Aortic Valve AoV Peak Gvahuqea543.1cm/sAoV VTI26.5cmAO Peak GR.12mmHg LVOT Peak Tvclwodr95.3cm/Shashi Mean GR.7mmHgAI P 1/2 Izvh121ag Mitral Valve MV E Gjehzeph35.3cm/sMV A Qwcdgjcw37.3cm/sE/A ratio1.0 TDI E/Lateral E'0.0E/Medial E'0.0 Tricuspid Valve TR Peak Dpmiukmd184eq/sTR Peak Gr.71qmCkDZDS42tdFq LEFT VENTRICLE The Left Ventricle is moderately dilated. There is normal left ventricular wall thickness. The systolic function is severely impaired. Paradoxic septum Transmitral Doppler flow pattern is Grade I-abnormal relaxation pattern. No left ventricle thrombus noted on this study. RIGHT VENTRICLE The right ventricle is normal size. There is normal right ventricular wall thickness. RV Systolic function is mildly reduced. ATRIA The left atrium is mildly dilated. The right atrium size is normal. AORTIC VALVE The aortic valve is severely thickened. There is trace to mild aortic regurgitation. MITRAL VALVE The mitral valve is moderately thickened. Mitral regurgitation is trace to mild. TRICUSPID VALVE There is trace tricuspid regurgitation. PULMONIC VALVE There is trace pulmonic valvular regurgitation. GREAT VESSELS The aortic root is normal in size. PERICARDIAL EFFUSION There is a trace circumferential pericardial effusion. <Conclusion> The Left Ventricle is moderately dilated. There is normal left ventricular wall thickness. The systolic function is severely impaired. Paradoxic septum Transmitral Doppler flow pattern is Grade I-abnormal relaxation pattern. No left ventricle thrombus noted on this study. There is trace to mild aortic regurgitation. Mitral regurgitation is trace to mild.
[2017-08-24] MEDS ORDERED: Albumin Human 25% (12.5 gm/50 ml) IV STA (18:32)
--- NOTE | 2017-08-24 18:33 | CP.PCM.PN ---
Subjective - Date & Time of Evaluation Date of Evaluation: 08/24/17 Time of Evaluation: 18:33 - Subjective Subjective: pt is seen and examined, follow up consult is dictated #[id number] Objective - Vital Signs/Intake and Output Vital Signs (last 24 hours): Temp Pulse Resp BP Pulse Ox 100.2 F H 112 H 15 89/52 L 100 08/24/17 17:40 08/24/17 18:15 08/24/17 18:15 08/24/17 18:13 08/24/17 18:15 Intake and Output: 08/24/17 08/24/17 06:59 18:59 Intake Total 900 700 Balance 900 700 - Medications Medications: Current Medications Acetaminophen (Tylenol 325mg Tab) 650 mg PO Q4 PRN PRN Reason: Pain, moderate (4-7) Last Admin: 08/17/17 06:25 Dose: 650 mg Acetaminophen (Tylenol 325mg Tab) 650 mg PO Q6 PRN PRN Reason: FEVER ABOVE 101 OR NASCIMENTO Ascorbic Acid (Vitamin C 500 Mg Tab) 500 mg PO DAILY [facility] Last Admin: 08/24/17 09:52 Dose: 500 mg Clopidogrel Bisulfate (Plavix) 75 mg PO DAILY [facility] Last Admin: 08/24/17 09:52 Dose: 75 mg Epoetin Jacobo (Procrit) 10,000 unit IV TTS [facility] Last Admin: 08/22/17 11:31 Dose: 10,000 unit Famotidine (Pepcid) 20 mg PO DAILY [facility] Last Admin: 08/24/17 09:52 Dose: 20 mg Finasteride (Proscar) 5 mg PO DAILY [facility] Last Admin: 08/24/17 09:52 Dose: 5 mg Heparin Sodium (Porcine) (Heparin) 5,000 units SC Q8 [facility] Last Admin: 08/24/17 14:21 Dose: 5,000 units Hydralazine HCl (Apresoline) 10 mg PO BID [facility] Phenylephrine HCl 30 mg/ (Sodium Chloride) 250 mls @ 10 mls/hr IV .Q24H PRN; Protocol; 20 MCG/MIN PRN Reason: TITRATE PER MD ORDER Last Titration: 08/24/17 18:22 Dose: 40 mcg/min, 19.99 mls/hr Levothyroxine Sodium (Synthroid) 25 mcg PO DAILY@0630 [facility] Last Admin: 08/24/17 06:34 Dose: 25 mcg Lorazepam (Ativan) 1 mg IVP Q2H PRN PRN Reason: Agitation Last Admin: 08/23/17 20:29 Dose: 1 mg Megestrol Acetate (Megace) 400 mg PO DAILY [facility] Last Admin: 08/24/17 09:52 Dose: 400 mg Metoprolol Tartrate (Lopressor) 25 mg PO BID [facility] Last Admin: 07/30/17 18:16 Dose: Not Given Midodrine (Proamatine) 5 mg PO TID [facility] Last Admin: 08/24/17 14:21 Dose: 5 mg Multivitamins (Hexavitamin) 1 tab PO DAILY [facility] Last Admin: 08/24/17 09:52 Dose: 1 tab Paricalcitol (Zemplar) 2 mcg IV TTS [facility] Last Admin: 08/22/17 11:32 Dose: 2 mcg Tamsulosin HCl (Flomax) 0.4 mg PO DAILY [facility] Last Admin: 08/24/17 09:52 Dose: 0.4 mg - Labs Labs: 08/24/17 06:30 08/24/17 06:32 PT 17.1 SECONDS (9.7-12.2) H 08/21/17 17:29 INR 1.5 08/21/17 17:29 APTT 34 SECONDS (21-34) 08/21/17 17:29
[2017-08-24] MEDS: Epoetin Alfa 10,000 unit/ml Dialysis IV SCH (19:59)
--- NOTE | 2017-08-24 20:33 | PN ---
DATE: FOLLOWUP RENAL CONSULTATION LOCATION: The patient is located in ICU, bed 9. REQUESTED BY: Dr. Daniel Coyle MD. REASON FOR FOLLOWUP: End-stage renal disease, for continuation of hemodialysis. SUBJECTIVE: Mr. Cunningham is an 82 years old elderly male with a past medical history significant for longstanding hypertension; coronary artery disease, status post CABG; multiple falls; gout; renal failure; was admitted fro the halfway with altered mental status, shortness of breath and found to have UTI and worsening renal function. Subsequently, the patient's course in the hospital is complicated by code sepsis, worsening LFTs and worsening renal function requiring transfer to ICU and also initiation of hemodialysis. He is status post Perm-A-Cath. The patient is being dialyzed 3 times a week, Saturday, , Saturday. The patient is transferred recently back to ICU for respiratory failure on ventilator. The patient is being dialyzed at this time and the patient had pure ultrafiltration about 2 hours yesterday, removed about 2 L. He tolerated very well and now the patient is being dialyzed today and UF goal is about 2 L. His CAT scan is improving with pulmonary congestion. The patient is awake, following simple commands. PHYSICAL EXAMINATION: GENERAL: Mr. Cunningham is an about 82 years old elderly -Welsh male, thin built, not in any distress. VITAL SIGNS: Blood pressure is 89/52, pulse 112 and current blood pressure is about 102/52, respirations 15, saturation 100% and temperature is 100.2. HEENT: Pupils are normal and reactive to light and accommodation. Conjunctivae pink. Sclerae anicteric. The patient is intubated. Trachea is midline. LUNGS: Symmetric on both sides. Bilateral breath sounds present. Occasional basilar crackle is present. CARDIOVASCULAR SYSTEM: [place] at the fifth intercostal space, midclavicular line. S1 and S2 audible. No murmur or gallop. The patient has a midsternal scar present from the previous CABG. ABDOMEN: Normal in appearance, soft, tympanic. No guarding. No rigidity. No hepatosplenomegaly. Status post PEG tube placement. CENTRAL NERVOUS SYSTEM: The patient is on ventilator. Arousable. Tried to follow simple commands. EXTREMITIES: No cyanosis. No clubbing. The patient has 1+ edema in both upper and lower extremities. LABORATORY DATA: His laboratory data include as follows. As of 08/24/2017, WBC 9.4, hemoglobin 9.6, hematocrit is 30.3, platelets 139. PH 7.52, pCO2 of 35, pO2 of 85, bicarb is 29, saturation 98.3. Vent settings: AC 14, 500 tidal volume, FiO2 of 40%, PEEP of 5. Sodium 137, potassium is 4.3, chloride 101, CO2 of 33, bicarb 33 and BUN 48, creatinine 2.6 and glucose 116, calcium is 8.4 and phosphorus 2.5, magnesium 2.3, total bilirubin 0.5. AST 22, ALT 35, alkaline phos is 142. Total protein 6.1, albumin is 2.6. As of 08/21/2017, MRSA screening was negative. Chest x-ray as of 08/24/2017, limited interval worsening including dense infiltrates at the left base and a new patchy atelectasis or infiltrate at the right base. Limited left pleural effusion, not significantly changed. A CT of the chest as of 08/24/2017, impression: Slowly diminishing bilateral pleural effusion with significant residual noted bilaterally and these exerting compressive atelectasis very mildly on the bilateral dependent lower lobes with a trace nondependent fibrotic changes against the anterior margins of the bilateral upper lobes. Diminishing pulmonary venous congestion, ascending thoracic aortic aneurysm again appreciated. MEDICATIONS: His current medications include as follows; Ativan 1 mg IV q. 2 hours p.r.n. and Flomax 0.4 mg p.o. daily, heparin 5000 units subcu q. 8 hours, multivitamin 1 tablet daily, Lopressor 25 mg p.o. b.i.d., Megace 400 mg p.o. daily and Pepcid 20 mg daily and phenylephrine 20 mcg per minute and Plavix 75 mg daily and midodrine 5 mg p.o. t.i.d., Procrit 10,000 units 3 times a week, Proscar 5 mg p.o. daily and Tylenol and vitamin C 500 mg p.o. daily and Zemplar 2 mcg 3 times a week. ASSESSMENT AND PLAN: In summary, Mr. Cunningham is an 82 years old elderly -Welsh male with a history of hypertension; coronary artery disease, status post coronary artery bypass graft; gout and chronic kidney disease, recurrent falls, was admitted with altered mental status, worsening renal function and found to have a urinary tract infection, urosepsis. Subsequently, transferred to Intensive Care Unit for code sepsis and then the patient was started on hemodialysis in the Intensive Care Unit for worsening renal function and went back to the floor now. The patient is back to ICU for respiratory failure, intubated. 1. End-stage renal disease. Continue hemodialysis 3 times a week, Saturday, , Saturday. 2. Anemia secondary to renal failure. 3. Respiratory failure. 4. Congestive heart failure. 5. Pneumonia. Continue antibiotics as per Infectious Disease recommendations. Continue Epogen during hemodialysis. We will try to ultrafiltrate as much as the patient can tolerate. We will do 2 hours hemodialysis and 1 hour pure ultrafiltration. Overall prognosis is guarded. Thank you for allowing me to participate in your patient's care. The patient's family is aware of the patient's condition. Hernan Peterson MD
[2017-08-25 04:39] LABS: ABG ALLEN TEST POS; ARTERIAL BLOOD GAS MODE CPAP; ARTERIAL BLOOD HGB O2 SAT 95.7 % (95.0-98.0); CARBOXYHEMOGLOBIN 1.8 % (0.5-1.5); DRAW SITE RR; HHB 1.7 % (0.0-5.0); METHEMOGLOBIN 0.7 % (0.0-3.0)
[2017-08-25] MEDS: Levothyroxine 25 MCG TAB PO SCH (06:15)
[2017-08-25 06:27] LABS: BASO # 0.1 K/uL (0.0-0.2); BASO % 0.6 % (0.0-2.0); EOS # 0.2 K/uL (0.0-0.7); EOS % 2.3 % (0.0-4.0); HEMATOCRIT 29.2 % (35.0-51.0); LYMPH # 1.8 K/uL (1.0-4.3); MEAN CORPUSCULAR HEMOGLOBIN 28.3 pg (27.0-31.0); MEAN CORPUSCULAR HGB CONC 31.4 g/dL (33.0-37.0); MEAN PLATELET VOLUME 9.6 fL (7.2-11.7); MONO # 0.7 K/uL (0.0-0.8); MONO % 8.3 % (0.0-10.0); NRBC % 0.1 % (0.0-2.0); RED CELL DISTRIBUTION WIDTH 21.3 % (11.5-14.5); WHITE BLOOD COUNT 8.7 K/uL (4.8-10.8)
--- NOTE | 2017-08-25 06:36 | CP.PCM.PN ---
Subjective - Date & Time of Evaluation Date of Evaluation: 08/24/17 Time of Evaluation: 22:00 - Subjective Subjective: Pt seen and evalauted at bedside, remains on mechancical ventilator, family on bedside, pt is confused, agitated at times, i talked to family and told them that prognosisi is not too great Objective - Vital Signs/Intake and Output Vital Signs (last 24 hours): Temp Pulse Resp BP Pulse Ox 98.0 F 103 H 21 100/61 100 08/25/17 00:00 08/25/17 05:00 08/25/17 05:00 08/25/17 04:59 08/25/17 05:00 Intake and Output: 08/24/17 08/25/17 18:59 06:59 Intake Total 860 835 Output Total 2300 Balance 860 -1465 - Medications Medications: Current Medications Acetaminophen (Tylenol 325mg Tab) 650 mg PO Q4 PRN PRN Reason: Pain, moderate (4-7) Last Admin: 08/17/17 06:25 Dose: 650 mg Acetaminophen (Tylenol 325mg Tab) 650 mg PO Q6 PRN PRN Reason: FEVER ABOVE 101 OR [place]CIM[place]O Ascorbic Acid (Vitamin C 500 Mg Tab) 500 mg PO DAILY [facility] Last Admin: 08/24/17 09:52 Dose: 500 mg Clopidogrel Bisulfate (Plavix) 75 mg PO DAILY [facility] Last Admin: 08/24/17 09:52 Dose: 75 mg Epoetin Jacobo (Procrit) 10,000 unit IV TTS [facility] Last Admin: 08/24/17 19:59 Dose: 10,000 unit Famotidine (Pepcid) 20 mg PO DAILY [facility] Last Admin: 08/24/17 09:52 Dose: 20 mg Finasteride (Proscar) 5 mg PO DAILY [facility] Last Admin: 08/24/17 09:52 Dose: 5 mg Heparin Sodium (Porcine) (Heparin) 5,000 units SC Q8 [facility] Last Admin: 08/25/17 06:15 Dose: 5,000 units Hydralazine HCl (Apresoline) 10 mg PO BID [facility] Phenylephrine HCl 30 mg/ (Sodium Chloride) 250 mls @ 10 mls/hr IV .Q24H PRN; Protocol; 20 MCG/MIN PRN Reason: TITRATE PER MD ORDER Last Titration: 08/24/17 21:30 Dose: 0 mcg/min, 0 mls/hr Levothyroxine Sodium (Synthroid) 25 mcg PO DAILY@0630 [facility] Last Admin: 08/25/17 06:15 Dose: 25 mcg Lorazepam (Ativan) 1 mg IVP Q2H PRN PRN Reason: Agitation Last Admin: 08/23/17 20:29 Dose: 1 mg Megestrol Acetate (Megace) 400 mg PO DAILY [facility] Last Admin: 08/24/17 09:52 Dose: 400 mg Metoprolol Tartrate (Lopressor) 25 mg PO BID [facility] Last Admin: 07/30/17 18:16 Dose: Not Given Midodrine (Proamatine) 5 mg PO TID [facility] Last Admin: 08/24/17 22:57 Dose: 5 mg Multivitamins (Hexavitamin) 1 tab PO DAILY [facility] Last Admin: 08/24/17 09:52 Dose: 1 tab Paricalcitol (Zemplar) 2 mcg IV TTS [facility] Last Admin: 08/22/17 11:32 Dose: 2 mcg Tamsulosin HCl (Flomax) 0.4 mg PO DAILY [facility] Last Admin: 08/24/17 09:52 Dose: 0.4 mg - Labs Labs: 08/25/17 06:16 08/24/17 06:32 PT 17.1 SECONDS (9.7-12.2) H 08/21/17 17:29 INR 1.5 08/21/17 17:29 APTT 34 SECONDS (21-34) 08/21/17 17:29 - Constitutional Appears: Chronically Ill - Head Exam Head Exam: ATRAUMATIC, NORMAL INSPECTION, NORMOCEPHALIC - Eye Exam Eye Exam: EOMI, Normal appearance, PERRL Pupil Exam: NORMAL ACCOMODATION, PERRL - Respiratory Exam Respiratory Exam: Decreased Breath Sounds, Rales, Rhonchi - Cardiovascular Exam Cardiovascular Exam: REGULAR RHYTHM, +S1, +S2. absent: Murmur - GI/Abdominal Exam GI & Abdominal Exam: Soft, Normal Bowel Sounds. absent: Tenderness Assessment and Plan (1) Fever Status: Acute (2) Leukocytosis Status: Acute (3) UTI (urinary tract infection) Status: Acute (4) Leg ulcer Status: Acute (5) Toxic metabolic encephalopathy Status: Acute (6) Pleural effusion Status: Acute (7) Respiratory failure Status: Acute (8) Renal failure Status: Acute
--- NOTE | 2017-08-25 06:36 | CP.PCM.PN ---
Subjective - Date & Time of Evaluation Date of Evaluation: 08/25/17 Time of Evaluation: 20:00 - Subjective Subjective: Pt seen and evalauted at bedside Objective - Vital Signs/Intake and Output Vital Signs (last 24 hours): Temp Pulse Resp BP Pulse Ox 98.0 F 103 H 21 100/61 100 08/25/17 00:00 08/25/17 05:00 08/25/17 05:00 08/25/17 04:59 08/25/17 05:00 Intake and Output: 08/24/17 08/25/17 18:59 06:59 Intake Total 860 835 Output Total 2300 Balance 860 -1465 - Medications Medications: Current Medications Acetaminophen (Tylenol 325mg Tab) 650 mg PO Q4 PRN PRN Reason: Pain, moderate (4-7) Last Admin: 08/17/17 06:25 Dose: 650 mg Acetaminophen (Tylenol 325mg Tab) 650 mg PO Q6 PRN PRN Reason: FEVER ABOVE 101 OR [place]CIM[place]O Ascorbic Acid (Vitamin C 500 Mg Tab) 500 mg PO DAILY [facility] Last Admin: 08/24/17 09:52 Dose: 500 mg Clopidogrel Bisulfate (Plavix) 75 mg PO DAILY [facility] Last Admin: 08/24/17 09:52 Dose: 75 mg Epoetin Jacobo (Procrit) 10,000 unit IV TTS [facility] Last Admin: 08/24/17 19:59 Dose: 10,000 unit Famotidine (Pepcid) 20 mg PO DAILY [facility] Last Admin: 08/24/17 09:52 Dose: 20 mg Finasteride (Proscar) 5 mg PO DAILY [facility] Last Admin: 08/24/17 09:52 Dose: 5 mg Heparin Sodium (Porcine) (Heparin) 5,000 units SC Q8 [facility] Last Admin: 08/25/17 06:15 Dose: 5,000 units Hydralazine HCl (Apresoline) 10 mg PO BID [facility] Phenylephrine HCl 30 mg/ (Sodium Chloride) 250 mls @ 10 mls/hr IV .Q24H PRN; Protocol; 20 MCG/MIN PRN Reason: TITRATE PER MD ORDER Last Titration: 08/24/17 21:30 Dose: 0 mcg/min, 0 mls/hr Levothyroxine Sodium (Synthroid) 25 mcg PO DAILY@0630 [facility] Last Admin: 08/25/17 06:15 Dose: 25 mcg Lorazepam (Ativan) 1 mg IVP Q2H PRN PRN Reason: Agitation Last Admin: 08/23/17 20:29 Dose: 1 mg Megestrol Acetate (Megace) 400 mg PO DAILY [facility] Last Admin: 08/24/17 09:52 Dose: 400 mg Metoprolol Tartrate (Lopressor) 25 mg PO BID [facility] Last Admin: 07/30/17 18:16 Dose: Not Given Midodrine (Proamatine) 5 mg PO TID [facility] Last Admin: 08/24/17 22:57 Dose: 5 mg Multivitamins (Hexavitamin) 1 tab PO DAILY [facility] Last Admin: 08/24/17 09:52 Dose: 1 tab Paricalcitol (Zemplar) 2 mcg IV TTS [facility] Last Admin: 08/22/17 11:32 Dose: 2 mcg Tamsulosin HCl (Flomax) 0.4 mg PO DAILY [facility] Last Admin: 08/24/17 09:52 Dose: 0.4 mg - Labs Labs: 08/25/17 06:16 08/24/17 06:32 PT 17.1 SECONDS (9.7-12.2) H 08/21/17 17:29 INR 1.5 08/21/17 17:29 APTT 34 SECONDS (21-34) 08/21/17 17:29 Assessment and Plan (1) Fever Status: Acute (2) Leukocytosis Status: Acute (3) UTI (urinary tract infection) Status: Acute (4) Leg ulcer Status: Acute (5) Toxic metabolic encephalopathy Status: Acute (6) Pleural effusion Status: Acute (7) Respiratory failure Status: Acute (8) Renal failure Status: Acute
[2017-08-25] MEDS: Multiple Vitamins Tab PO SCH (09:17)
[2017-08-25] MEDS: Megestrol Acetate 40 mg/ml Cup PO SCH (09:17)
--- NOTE | 2017-08-25 10:37 | RAD ---
HISTORY: Follow up intubated patioent COMPARISON: Portable chest 08/24/2017. FINDINGS: Endotracheal tube and central venous dialysis catheter unchanged in position. LUNGS: Trace right pleural effusion is questioned. Improved aeration is appreciate the right base with trace residual atelectasis or infiltrate remaining at the right base. Persistent airspace disease seen posterior the left heart. PLEURA: Trace right pleural effusion is questioned. Mild left pleural effusions unchanged. No pneumothorax identified CARDIOVASCULAR: Stable cardiac silhouette is noted. No pulmonary vascular derangement. OSSEOUS STRUCTURES: No significant abnormalities. VISUALIZED UPPER ABDOMEN: Normal. OTHER FINDINGS: None. IMPRESSION: Diminished airspace disease right base, nearly resolved. Left basilar airspace disease unchanged. Mild left and minimal right pleural effusions remain.
--- NOTE | 2017-08-25 11:43 | PN ---
DATE: LOCATION: ICU 9. SUBJECTIVE: This is an 82-year-old male, seen and examined early in rounds with the staff in the Intensive Care Unit, still intubated, still on hemodialysis, tolerating PEG feeding well. The entire chart is reviewed including, but not limited to the most recent lab and radiology study results, current and previous medication list, current and previous medical events. Today's lab showed hemoglobin of 9.2, hematocrit 29.0 with normal platelet count and normal white blood cells, but abnormal ABGs. BUN is 43, creatinine 2.3 with low calcium 8.0 with low albumin reported as 2.6. Most recent chest x-ray done yesterday, report and the film is . Today's lab is still pending. PHYSICAL EXAMINATION GENERAL: An 82-year-old male, intubated, somewhat sedated. VITAL SIGNS: With increased heart rate to 102 with blood pressure of 114/58. HEENT: Showed pale, dry oral mucous membrane. Nonicteric sclerae. Patient is intubated. LUNGS: Scattered crepitation with mild bilateral wheezing and rales with decreased air entry at bases. HEART: Positive S1 and S2 with increased rate. ABDOMEN: Soft. Bowel sounds are present. PEG tube is in place. No mass or organomegaly with evidence of mild anterior abdominal wall cellulitis. No reported bleeding residual or resistance from the PEG. EXTREMITIES: Lower extremities edematous changes. No clubbing or cyanosis. IMPRESSION: 1. Malnutrition. 2. Dyspepsia with dysphagia. 3. Failure to thrive. 4. Hypoalbuminemia. 5. Status post percutaneous endoscopic gastrostomy insertion. 6. Pneumonia with respiratory failure, patient is intubated to ventilator. 7. End-stage renal disease, on hemodialysis. 8. Anemia, secondary to above. 9. Known history of hypertension, congestive heart failure, coronary artery disease with status post coronary artery bypass surgery. SUGGESTIONS: 1. Continue current management. 2. Patient may need albumin IV. 3. Subsequent but gentle increase of the rate of the PEG feeding. Katia Pardo MD
--- NOTE | 2017-08-25 13:29 | CP.PCM.PN ---
Subjective - Date & Time of Evaluation Date of Evaluation: 08/25/17 Time of Evaluation: 07:00 - Subjective Subjective: no fever more arousable NAD Objective - Vital Signs/Intake and Output Vital Signs (last 24 hours): Temp Pulse Resp BP Pulse Ox 98.3 F 111 H 20 106/57 L 100 08/25/17 08:00 08/25/17 13:00 08/25/17 13:00 08/25/17 12:59 08/25/17 13:00 Intake and Output: 08/25/17 08/25/17 06:59 18:59 Intake Total 900 555 Output Total 2300 Balance -1400 555 - Medications Medications: Current Medications Acetaminophen (Tylenol 325mg Tab) 650 mg PO Q4 PRN PRN Reason: Pain, moderate (4-7) Last Admin: 08/17/17 06:25 Dose: 650 mg Acetaminophen (Tylenol 325mg Tab) 650 mg PO Q6 PRN PRN Reason: FEVER ABOVE 101 OR [place] Ascorbic Acid (Vitamin C 500 Mg Tab) 500 mg PO DAILY [facility] Last Admin: 08/25/17 09:17 Dose: 500 mg Clopidogrel Bisulfate (Plavix) 75 mg PO DAILY [facility] Last Admin: 08/25/17 09:17 Dose: 75 mg Famotidine (Pepcid) 20 mg PO DAILY [facility] Last Admin: 08/25/17 09:17 Dose: 20 mg Finasteride (Proscar) 5 mg PO DAILY [facility] Last Admin: 08/25/17 09:17 Dose: 5 mg Heparin Sodium (Porcine) (Heparin) 5,000 units SC Q8 [facility] Last Admin: 08/25/17 06:15 Dose: 5,000 units Hydralazine HCl (Apresoline) 10 mg PO BID [facility] Phenylephrine HCl 30 mg/ (Sodium Chloride) 250 mls @ 10 mls/hr IV .Q24H PRN; Protocol; 20 MCG/MIN PRN Reason: TITRATE PER MD ORDER Last Titration: 08/24/17 21:30 Dose: 0 mcg/min, 0 mls/hr Levothyroxine Sodium (Synthroid) 25 mcg PO DAILY@0630 [facility] Last Admin: 08/25/17 06:15 Dose: 25 mcg Lorazepam (Ativan) 1 mg IVP Q2H PRN PRN Reason: Agitation Last Admin: 08/23/17 20:29 Dose: 1 mg Megestrol Acetate (Megace) 400 mg PO DAILY [facility] Last Admin: 08/25/17 09:17 Dose: 400 mg Metoprolol Tartrate (Lopressor) 25 mg PO BID [facility] Last Admin: 07/30/17 18:16 Dose: Not Given Midodrine (Proamatine) 5 mg PO TID [facility] Last Admin: 08/25/17 09:17 Dose: 5 mg Multivitamins (Hexavitamin) 1 tab PO DAILY [facility] Last Admin: 08/25/17 09:17 Dose: 1 tab Paricalcitol (Zemplar) 2 mcg IV TTS [facility] Last Admin: 08/22/17 11:32 Dose: 2 mcg Tamsulosin HCl (Flomax) 0.4 mg PO DAILY [facility] Last Admin: 08/25/17 09:25 Dose: 0.4 mg - Labs Labs: 08/25/17 06:16 08/25/17 06:17 PT 17.1 SECONDS (9.7-12.2) H 08/21/17 17:29 INR 1.5 08/21/17 17:29 APTT 34 SECONDS (21-34) 08/21/17 17:29 - Constitutional Appears: Non-toxic, Chronically Ill - Head Exam Head Exam: NORMOCEPHALIC - Eye Exam Eye Exam: PERRL. absent: Scleral icterus - ENT Exam ENT Exam: Mucous Membranes Dry - Neck Exam Neck Exam: absent: Lymphadenopathy - Respiratory Exam Respiratory Exam: Decreased Breath Sounds, Rales, Rhonchi - Cardiovascular Exam Cardiovascular Exam: REGULAR RHYTHM, +S1, +S2 - GI/Abdominal Exam GI & Abdominal Exam: Distended, Soft. absent: Tenderness - Rectal Exam Rectal Exam: Deferred - Exam Exam: NORMAL INSPECTION - Extremities Exam Extremities Exam: absent: Pedal Edema - Back Exam Back Exam: absent: CVA tenderness (L), CVA tenderness (R) - Neurological Exam Neurological Exam: Alert, Awake Assessment and Plan (1) Fever Status: Acute (2) Leukocytosis Status: Acute (3) UTI (urinary tract infection) Status: Acute (4) Acute renal failure Status: Acute (5) Generalized weakness Status: Acute (6) Hyperkalemia Status: Acute (7) Troponin level elevated Status: Acute (8) UTI (urinary tract infection) due to Enterococcus Status: Acute (9) UTI (urinary tract infection) due to Enterococcus Status: Acute (10) UTI due to Klebsiella species Status: Acute (11) UTI due to Klebsiella species Status: Acute
--- NOTE | 2017-08-25 16:15 | CP.CCUPN ---
CCU Subjective - Physician Review Events Since Last Encounter (Free Text): 08/25/17 16:12 alert and disoriented. CCU Objective - Vital Signs / Intake & Output Vital Signs (Last 4 hours): Vital Signs Pulse Resp BP Pulse Ox 08/25/17 14:00 112 H 22 100 08/25/17 13:59 111 H 16 109/54 L 100 08/25/17 13:00 111 H 20 100 08/25/17 12:59 110 H 14 106/57 L 98 Intake and Output (Last 8hrs): Intake & Output 08/25/17 08/25/17 08/25/17 06:59 14:59 22:59 Intake Total 520 720 Output Total 300 Balance 220 720 Intake: Tube Feeding 520 520 Other 200 Output: Urine 300 Urine, Voided 300 Other: # Bowel Movements 0 0 - Physical Exam Head: Positive for: Atraumatic, Normocephalic Extroacular Muscles: Positive for: EOMI Conjunctiva: Positive for: Normal Mouth: Positive for: Moist Mucous Membranes Neck: Positive for: Other Respiratory/Chest: Positive for: Good Air Exchange, Rhonchi, Other (intubated). Negative for: Respiratory Distress, Accessory Muscle Use Cardiovascular: Positive for: Regular Rate and Rhythm Abdomen: Negative for: Tenderness, Distention Lower Extremity: Positive for: Edema Skin: Positive for: Warm, Normal Color Psychiatric: Positive for: Alert. Negative for: Oriented x 3 - Medications Active Medications: Active Medications Generic Name Dose Route Start Last Admin Trade Name Freq PRN Reason Stop Dose Admin Ascorbic Acid 500 mg 08/02/17 10:15 08/25/17 09:17 Vitamin C 500 Mg Tab PO 500 mg DAILY [facility] Administration Clopidogrel Bisulfate 75 mg 07/25/17 10:00 08/25/17 09:17 Plavix PO 75 mg DAILY [facility] Administration Famotidine 20 mg 08/02/17 10:00 08/25/17 09:17 Pepcid PO 20 mg DAILY [facility] Administration Finasteride 5 mg 07/25/17 10:00 08/25/17 09:17 Proscar PO 5 mg DAILY [facility] Administration Hydralazine HCl 10 mg 08/17/17 14:44 Apresoline PO BID [facility] Phenylephrine HCl 30 mg/ 250 mls @ 10 mls/hr 08/23/17 11:00 08/24/17 21:30 Sodium Chloride IV 0 mcg/min .Q24H PRN 0 mls/hr TITRATE PER MD ORDER Titration Protocol 20 MCG/MIN Levothyroxine Sodium 25 mcg 07/25/17 06:30 08/25/17 06:15 Synthroid PO 25 mcg DAILY@0630 [facility] Administration Lorazepam 1 mg 08/21/17 18:32 08/23/17 20:29 Ativan IVP 1 mg Q2H PRN Administration Agitation Megestrol Acetate 400 mg 08/13/17 10:00 08/25/17 09:17 Megace PO 400 mg DAILY [facility] Administration Metoprolol Tartrate 25 mg 07/26/17 10:30 07/30/17 18:16 Lopressor PO Not Given BID [facility] Midodrine 5 mg 08/01/17 14:00 08/25/17 14:02 Proamatine PO 5 mg TID [facility] Administration Multivitamins 1 tab 08/02/17 10:15 08/25/17 09:17 Hexavitamin PO 1 tab DAILY [facility] Administration Paricalcitol 2 mcg 08/06/17 10:00 08/22/17 11:32 Zemplar IV 2 mcg TTS [facility] Administration Tamsulosin HCl 0.4 mg 07/25/17 10:00 08/25/17 09:25 Flomax PO 0.4 mg DAILY [facility] Administration - Patient Studies Lab Studies: Microbiology Studies 08/16/17 10:01 Mycobacterial Culture - Preliminary Other: Please Indicate Lab Studies 08/25/17 08/25/17 08/25/17 Range/Units 11:51 06:17 06:16 WBC 8.7 (4.8-10.8) K/uL RBC 3.24 L (4.40-5.90) Mil/uL Hgb 9.2 L (12.0-18.0) g/dL Hct 29.2 L (35.0-51.0) % MCV 90.0 (80.0-94.0) fL MCH 28.3 (27.0-31.0) pg MCHC 31.4 L (33.0-37.0) g/dL RDW 21.3 H (11.5-14.5) % Plt Count 152 (130-400) K/uL MPV 9.6 (7.2-11.7) fL Neut % (Auto) 68.8 (50.0-75.0) % Lymph % (Auto) 20.0 (20.0-40.0) % [place] % (Auto) 8.3 (0.0-10.0) % Eos % (Auto) 2.3 (0.0-4.0) % Baso % (Auto) 0.6 (0.0-2.0) % Neut # 6.0 (1.8-7.0) K/uL Lymph # 1.8 (1.0-4.3) K/uL [place] # 0.7 (0.0-0.8) K/uL Eos # 0.2 (0.0-0.7) K/uL Baso # 0.1 (0.0-0.2) K/uL Puncture Site pCO2 (35-45) mm/Hg pO2 (80-100) mm/Hg HCO3 (21-28) mmol/L ABG pH (7.35-7.45) ABG Total CO2 (22-28) mmol/L ABG O2 Saturation (95-98) % ABG Base Excess (-2.0-3.0) mmol/L ABG Hemoglobin (11.7-17.4) g/dL ABG Carboxyhemoglobin (0.5-1.5) % POC ABG HHb (Measured) (0.0-5.0) % ABG Methemoglobin (0.0-3.0) % Elder Test A-a O2 Difference mm/Hg Respiratory Index Hgb O2 Saturation (95.0-98.0) % Vent Mode FiO2 % Pressure Support CPAP Sodium 138 (132-148) mmol/L Potassium 4.0 (3.6-5.2) mmol/L Chloride 100 (98-107) mmol/L Carbon Dioxide 32 H (22-30) mmol/L Anion Gap 10 (10-20) BUN 43 H (9-20) mg/dL Creatinine 2.3 H (0.8-1.5) mg/dL Est GFR ( Amer) 33 Est GFR (Non-Af Amer) 27 POC Glucose (mg/dL) 113 H (65-110) mg/dL Random Glucose 102 (75-110) mg/dL Calcium 8.0 L (8.6-10.4) mg/dl 08/25/17 Range/Units 04:25 WBC (4.8-10.8) K/uL RBC (4.40-5.90) Mil/uL Hgb (12.0-18.0) g/dL Hct (35.0-51.0) % MCV (80.0-94.0) fL MCH (27.0-31.0) pg MCHC (33.0-37.0) g/dL RDW (11.5-14.5) % Plt Count (130-400) K/uL MPV (7.2-11.7) fL Neut % (Auto) (50.0-75.0) % Lymph % (Auto) (20.0-40.0) % [place] % (Auto) (0.0-10.0) % Eos % (Auto) (0.0-4.0) % Baso % (Auto) (0.0-2.0) % Neut # (1.8-7.0) K/uL Lymph # (1.0-4.3) K/uL Bethel # (0.0-0.8) K/uL Eos # (0.0-0.7) K/uL Baso # (0.0-0.2) K/uL Puncture Site Rr pCO2 39 (35-45) mm/Hg pO2 106 H (80-100) mm/Hg HCO3 28.4 H (21-28) mmol/L ABG pH 7.47 H (7.35-7.45) ABG Total CO2 29.6 H (22-28) mmol/L ABG O2 Saturation 98.3 H (95-98) % ABG Base Excess 4.5 H (-2.0-3.0) mmol/L ABG Hemoglobin 14.4 (11.7-17.4) g/dL ABG Carboxyhemoglobin 1.8 H (0.5-1.5) % POC ABG HHb (Measured) 1.7 (0.0-5.0) % ABG Methemoglobin 0.7 (0.0-3.0) % Elder Test Pos A-a O2 Difference 130.0 mm/Hg Respiratory Index 1.2 Hgb O2 Saturation 95.7 (95.0-98.0) % Vent Mode Cpap FiO2 40.0 % Pressure Support 10 CPAP 5 Sodium (132-148) mmol/L Potassium (3.6-5.2) mmol/L Chloride (98-107) mmol/L Carbon Dioxide (22-30) mmol/L Anion Gap (10-20) BUN (9-20) mg/dL Creatinine (0.8-1.5) mg/dL Est GFR ( Amer) Est GFR (Non-Af Amer) POC Glucose (mg/dL) (65-110) mg/dL Random Glucose (75-110) mg/dL Calcium (8.6-10.4) mg/dl Laboratory Results - last 24 hr 08/25/17 08/25/17 08/25/17 04:25 06:16 06:17 WBC 8.7 RBC 3.24 L Hgb 9.2 L Hct 29.2 L MCV 90.0 MCH 28.3 MCHC 31.4 L RDW 21.3 H Plt Count 152 MPV 9.6 Neut % (Auto) 68.8 Lymph % (Auto) 20.0 [place] % (Auto) 8.3 Eos % (Auto) 2.3 Baso % (Auto) 0.6 Neut # 6.0 Lymph # 1.8 [place]hel # 0.7 Eos # 0.2 Baso # 0.1 Puncture Site Rr pCO2 39 pO2 106 H HCO3 28.4 H ABG pH 7.47 H ABG Total CO2 29.6 H ABG O2 Saturation 98.3 H ABG Base Excess 4.5 H ABG Hemoglobin 14.4 ABG Carboxyhemoglobin 1.8 H POC ABG HHb (Measured) 1.7 ABG Methemoglobin 0.7 Elder Test Pos A-a O2 Difference 130.0 Respiratory Index 1.2 Hgb O2 Saturation 95.7 Vent Mode Cpap FiO2 40.0 Pressure Support 10 CPAP 5 Sodium 138 Potassium 4.0 Chloride 100 Carbon Dioxide 32 H Anion Gap 10 BUN 43 H Creatinine 2.3 H Est GFR ( Amer) 33 Est GFR (Non-Af Amer) 27 POC Glucose (mg/dL) Random Glucose 102 Calcium 8.0 L 08/25/17 11:51 WBC RBC Hgb Hct MCV MCH MCHC RDW Plt Count MPV Neut % (Auto) Lymph % (Auto) [place] % (Auto) Eos % (Auto) Baso % (Auto) Neut # Lymph # [place] # Eos # Baso # Puncture Site pCO2 pO2 HCO3 ABG pH ABG Total CO2 ABG O2 Saturation ABG Base Excess ABG Hemoglobin ABG Carboxyhemoglobin POC ABG HHb (Measured) ABG Methemoglobin Elder Test A-a O2 Difference Respiratory Index Hgb O2 Saturation Vent Mode FiO2 Pressure Support CPAP Sodium Potassium Chloride Carbon Dioxide Anion Gap BUN Creatinine Est GFR ( Amer) Est GFR (Non-Af Amer) POC Glucose (mg/dL) 113 H Random Glucose Calcium Fingerstick Blood Sugar Results: 136 Review of Systems - Review of Systems Systems not reviewed;Unavailable: Altered Mental Status Critical Care Progress Note - Nutrition Nutrition: Nutrition Category Date Time Status NPO Diet [DIET] Diets 08/16/17 Breakfast Active Assessment/Plan (1) Pulmonary edema cardiac cause Assessment and plan: 82yo M. PMHx of CAD, HTN, CKD, dementia. p/w AMS from obstructive uropathy with sepsis. Neuro: Alert and following commands Pulm: Extubated (08/25). bilateral pulmonary effusions minimal to moderate in size. CV: Relatively hypotensive, but asymptomatic and stable. CAD continue Plavix. Hem: Anemia of chronic disease Renal: Normal hemodialysis schedule (//), extra dialysis session today, for fluid removal. Continue Midodrine for hypotension. Endo: No acute issues GI: Nothing by mouth, s/s eval tomorrow. ID: No acute issues DVT proph - heparin subcutaneous GI proph - Pepcid wise for strict I/O's during acute illness Code status - full code Critical Care Time spent 35 minutes Multi-disciplinary rounds were performed with house staff, nursing, speech therapy, respiratory therapy, pharmacy and nutrition with integrated input from the primary team/attending and other consulting services. The documented time is cumulative and includes review of patient data/exams/labs/chart review and examination of the patient on rounds and throughout the day; time is exclusive of any procedures or teaching time. Current Visit: Yes Status: Acute
--- NOTE | 2017-08-25 17:30 | CP.PCM.PN ---
Subjective - Date & Time of Evaluation Date of Evaluation: 08/25/17 Time of Evaluation: 17:30 - Subjective Subjective: pt is seen and examied, follow up consult is dictated #[id number] Objective - Vital Signs/Intake and Output Vital Signs (last 24 hours): Temp Pulse Resp BP Pulse Ox 98.7 F 117 H 17 111/58 L 100 08/25/17 16:00 08/25/17 16:00 08/25/17 16:00 08/25/17 15:59 08/25/17 16:00 Intake and Output: 08/25/17 08/25/17 06:59 18:59 Intake Total 900 850 Output Total 2300 Balance -1400 850 - Medications Medications: Current Medications Ascorbic Acid (Vitamin C 500 Mg Tab) 500 mg PO DAILY COUNTS INCLUDE 234 BEDS AT THE [facility] Last Admin: 08/25/17 09:17 Dose: 500 mg Clopidogrel Bisulfate (Plavix) 75 mg PO DAILY COUNTS INCLUDE 234 BEDS AT THE [facility] Last Admin: 08/25/17 09:17 Dose: 75 mg Famotidine (Pepcid) 20 mg PO DAILY COUNTS INCLUDE 234 BEDS AT THE [facility] Last Admin: 08/25/17 09:17 Dose: 20 mg Finasteride (Proscar) 5 mg PO DAILY COUNTS INCLUDE 234 BEDS AT THE [facility] Last Admin: 08/25/17 09:17 Dose: 5 mg Hydralazine HCl (Apresoline) 10 mg PO BID COUNTS INCLUDE 234 BEDS AT THE [facility] Phenylephrine HCl 30 mg/ (Sodium Chloride) 250 mls @ 10 mls/hr IV .Q24H PRN; Protocol; 20 MCG/MIN PRN Reason: TITRATE PER MD ORDER Last Titration: 08/24/17 21:30 Dose: 0 mcg/min, 0 mls/hr Levothyroxine Sodium (Synthroid) 25 mcg PO DAILY@0630 COUNTS INCLUDE 234 BEDS AT THE [facility] Last Admin: 08/25/17 06:15 Dose: 25 mcg Lorazepam (Ativan) 1 mg IVP Q2H PRN PRN Reason: Agitation Last Admin: 08/23/17 20:29 Dose: 1 mg Megestrol Acetate (Megace) 400 mg PO DAILY COUNTS INCLUDE 234 BEDS AT THE [facility] Last Admin: 08/25/17 09:17 Dose: 400 mg Metoprolol Tartrate (Lopressor) 25 mg PO BID COUNTS INCLUDE 234 BEDS AT THE [facility] Last Admin: 07/30/17 18:16 Dose: Not Given Midodrine (Proamatine) 5 mg PO TID COUNTS INCLUDE 234 BEDS AT THE [facility] Last Admin: 08/25/17 14:02 Dose: 5 mg Multivitamins (Hexavitamin) 1 tab PO DAILY COUNTS INCLUDE 234 BEDS AT THE [facility] Last Admin: 08/25/17 09:17 Dose: 1 tab Paricalcitol (Zemplar) 2 mcg IV TTS COUNTS INCLUDE 234 BEDS AT THE [facility] Last Admin: 08/22/17 11:32 Dose: 2 mcg Tamsulosin HCl (Flomax) 0.4 mg PO DAILY COUNTS INCLUDE 234 BEDS AT THE [facility] Last Admin: 08/25/17 09:25 Dose: 0.4 mg - Labs Labs: 08/25/17 06:16 08/25/17 06:17 PT 17.1 SECONDS (9.7-12.2) H 08/21/17 17:29 INR 1.5 08/21/17 17:29 APTT 34 SECONDS (21-34) 08/21/17 17:29
--- NOTE | 2017-08-26 03:36 | PN ---
DATE: FOLLOWUP RENAL CONSULTATION LOCATION: ICU, bed 9. REQUESTED BY: Daniel Coyle MD REASON FOR FOLLOWUP: End-stage renal disease, for continuation of the hemodialysis. HISTORY OF PRESENT ILLNESS: Mr. Cunningham is an 82-year-old elderly male with a past medical history significant for longstanding hypertension, coronary artery disease, status post CABG, multiple falls, hyperlipidemia, gout, renal failure, who was admitted from the care home with altered mental status, shortness of breath, and found to have a UTI with worsening renal function, code sepsis. Subsequently, the patient was transferred from floor to ICU. The patient was initiated on hemodialysis and pressors, and subsequently transferred back to medical floor. His condition gradually deteriorated on the floor requiring transfer back to ICU with respiratory failure and intubation. The patient underwent hemodialysis three times a week and also received extra dialysis on Saturday. The patient had ultrafiltration of about 2 liters on Saturday and Saturday, tolerated very well. The patient is off ventilator now. The patient is following simple commands. PHYSICAL EXAMINATION: VITAL SIGNS: Blood pressure 104/60, pulse 114, respirations 18, saturation 99%, and temperature 98.7. GENERAL: Mr. Cunningham is an 82-year-old elderly male, moderate-built, moderate-nourished, not in any distress. HEENT: Pupils normally react to light and accommodation. Conjunctivae pink. Sclerae anicteric. Tongue is moist. Trachea is midline. LUNGS: Symmetric on both sides. Bilateral breath sounds present. Occasional basal crackles present. CVS: [place] at the fifth intercostal space, midclavicular line. S1, S2 audible. Tachycardic and questionable systolic murmur. ABDOMEN: Normal in appearance, status post PEG tube placement. Abdomen is soft, tympanic. No guarding. No rigidity. No hepatosplenomegaly. SCIENTIFIC PHOTOGRAPHER: The patient is alert, awake, following simple commands. EXTREMITIES: No cyanosis. No clubbing. The patient has 1+ edema in both upper and lower extremities. CURRENT MEDICATIONS: Ativan 1 mg IV q.2h. p.r.n., Flomax 0.4 mg p.o. daily, subcutaneous heparin 5000 q.12h., multivitamin 1 tablet daily, Lopressor on hold, Megace 400 mg p.o. daily, Pepcid 20 mg daily, phenylephrine 20 mcg/min, Plavix 75 mg daily, midodrine 5 mg p.o. t.i.d., Proscar 5 mg p.o. daily, levothyroxine 25 mcg daily, vitamin C 500 mg p.o. daily, Zemplar 2 mcg three times a week. LABORATORY DATA: As of 08/25/2017, WBC 8.7, hemoglobin 9.2, hematocrit is 29.2, platelets 152. The pH 7.47, pCO2 of 39, pO2 106, bicarb is 28.4, saturation 98.3. CPAP with a pressure support of 10 and FiO2 of 40% and PEEP of 5 this morning. BMP; sodium 138, potassium is 4, chloride 100, CO2 32, BUN 43, creatinine 2.3, glucose 102, calcium is 8.0. Accu-Cheks 113. Chest x-ray as of 07/26/2017, diminished air space disease at right base, nearly resolved; left basilar air space disease, unchanged; mild left and minimal right pleural effusions remain. ASSESSMENT: In summary, Mr. Cunningham is an 82-year-old elderly male with hypertension; coronary artery disease, status post coronary artery bypass graft; hyperlipidemia; gout; with ejection fraction of about 24%. Left ventricle is moderately dilated. On echocardiogram, there is normal left ventricular wall thickness, systolic function severely impaired, and paradoxic septum. Transmitral Doppler flow pattern is grade 1 abnormal relaxation pattern. No left ventricular thrombus noted in this study. Trace to mild aortic regurgitation and mitral regurgitation is trace to mild. Off ventilator. 1. End-stage renal disease. Continue hemodialysis three times a week Saturday, , and Saturday. We will try to ultrafiltrate as much as the patient can tolerate. 2. Congestive heart failure. 3. Cardiomyopathy with ejection fraction of about 24%. 4. Rule out pneumonia. PLAN: Continue his current medication. Increase midodrine to 10 mg p.o. t.i.d. Follow up with patient resource coordinator, Dr. Jeffery Thrasher. We will follow up with you. Thank you for allowing me to participate in your patient's care. Overall prognosis is guarded. Hernan Peterson MD
[2017-08-26 06:16] LABS: BASO # 0.1 K/uL (0.0-0.2); BASO % 0.8 % (0.0-2.0); EOS # 0.2 K/uL (0.0-0.7); EOS % 2.3 % (0.0-4.0); HEMATOCRIT 29.6 % (35.0-51.0); LYMPH # 2.4 K/uL (1.0-4.3); LYMPH % 23.5 % (20.0-40.0); MEAN CELL VOLUME 90.1 fL (80.0-94.0); MEAN CORPUSCULAR HEMOGLOBIN 28.6 pg (27.0-31.0); MEAN CORPUSCULAR HGB CONC 31.7 g/dL (33.0-37.0); MEAN PLATELET VOLUME 9.3 fL (7.2-11.7); MONO # 0.9 K/uL (0.0-0.8); MONO % 8.6 % (0.0-10.0); NRBC % 0.1 % (0.0-2.0); RED CELL DISTRIBUTION WIDTH 20.9 % (11.5-14.5); WHITE BLOOD COUNT 10.1 K/uL (4.8-10.8)
[2017-08-26] MEDS: Levothyroxine 25 MCG TAB PO SCH (06:17)
[2017-08-26 06:24] LABS: ALB/GLOB RATIO 0.7 (1.0-2.1); BILIRUBIN,TOTAL 0.6 mg/dL (0.2-1.3); CALCIUM 8.6 mg/dl (8.6-10.4); MAGNESIUM 2.6 mg/dL (1.6-2.3); PHOSPHOROUS 2.7 mg/dL (2.5-4.5); POTASSIUM 4.4 mmol/L (3.6-5.2); TOTAL PROTEIN 6.2 g/dL (6.3-8.3)
[2017-08-26] MEDS: Multiple Vitamins Tab PO SCH (09:32)
[2017-08-26] MEDS: Megestrol Acetate 40 mg/ml Cup PO SCH (09:42)
--- NOTE | 2017-08-26 10:59 | PN ---
DATE: LOCATION: ICU 9. SUBJECTIVE: This is an 82 years old male, post PEG insertion, seen and examined in rounds without any significant clinical changes, extubated recently, on nasal cannula for oxygen supply. The entire chart is reviewed including, but not limited to the most recent lab and radiology study results, current and previous medication list, current and the previous medical events. The patient tolerated PEG feeding well so far, no residual bleeding or resistant. Most recent chest x-ray done yesterday, report is seen. Today's lab showed low hemoglobin of 9.4, hematocrit 29.6 with normal white blood cells and normal platelet count; with BUN 59, creatinine 3.0, blood glucose level 113 with magnesium 2.6 with low albumin 2.6, low total protein 6.2. PHYSICAL EXAMINATION GENERAL: An 82 years old male. VITAL SIGNS: Afebrile with heart rate of 104, blood pressure 114/62. HEENT: Showed pale, dry oral mucous membrane. Nonicteric sclerae. LUNGS: Few scattered crepitation. Decreased air entry at bases. HEART: Positive S1 and S2. ABDOMEN: Soft, bowel sounds are present. PEG tube is in place with well-formed stoma and slight mild hyper-erythematous mucosa indicative of mild anterior abdominal wall cellulitis. No bleeding, no discharge. EXTREMITIES: Lower extremities with mild edematous changes. NEUROLOGIC: No reported new neurological deficit, sensory or motor. IMPRESSION: 1. Malnutrition. 2. Hypoalbuminemia. 3. Failure to thrive. 4. Status post percutaneous endoscopic gastrostomy insertion. 5. Dyspepsia with mild dysphagia by history. 6. Known history of hypertension, congestive heart failure, coronary artery disease. 7. End-stage renal disease, on hemodialysis. 8. Anemia secondary to above. 9. Pneumonia with respiratory failure, improved so far the patient is extubated. SUGGESTIONS: 1. Continue current management. 2. Subsequent increase rate of feeding. 3. Repeat stool for occult blood. 4. Further recommendation to follow. Katia Pardo MD
--- NOTE | 2017-08-26 12:18 | CP.CCUPN ---
CCU Subjective - Physician Review Subjective (Free Text): PGY1 ICU Progress Note for Dr. House Patient seen and examined at bedside this morning. No acute events overnight. Patient extubated yesterday. Patient is awake and alert, responding to questions. He is mildly confused at baseline. Patient is in good spirits, with no complaints at this time. CCU Objective - Vital Signs / Intake & Output Vital Signs (Last 4 hours): Vital Signs Pulse Resp BP Pulse Ox 08/26/17 11:09 110 H 19 104/61 99 08/26/17 11:00 111 H 21 99 08/26/17 10:59 111 H 21 104/61 98 08/26/17 10:00 113 H 22 107/63 96 08/26/17 09:53 114 H 20 114/61 98 08/26/17 09:00 113 H 15 99 08/26/17 08:59 112 H 17 114/61 98 Intake and Output (Last 8hrs): Intake & Output 08/25/17 08/26/17 08/26/17 22:59 06:59 14:59 Intake Total 600 520 405 Output Total 75 50 0 Balance 525 470 405 Intake: Tube Feeding 520 520 325 Other 80 80 Output: Urine 75 50 0 Condom 75 50 0 Other: # Bowel Movements 1 - Physical Exam Head: Positive for: Atraumatic, Normocephalic Extroacular Muscles: Positive for: EOMI Conjunctiva: Positive for: Normal Mouth: Positive for: Moist Mucous Membranes Neck: Positive for: Other Respiratory/Chest: Positive for: Good Air Exchange, Rhonchi, Other (intubated). Negative for: Respiratory Distress, Accessory Muscle Use Cardiovascular: Positive for: Regular Rate and Rhythm Abdomen: Negative for: Tenderness, Distention Upper Extremity: Positive for: Other (Right arm necrotic lesions improving with medihoney) Lower Extremity: Positive for: Edema Skin: Positive for: Warm, Normal Color Psychiatric: Positive for: Alert. Negative for: Oriented x 3 - Medications Active Medications: Active Medications Generic Name Dose Route Start Last Admin Trade Name Freq PRN Reason Stop Dose Admin Ascorbic Acid 500 mg 08/02/17 10:15 08/26/17 09:32 Vitamin C 500 Mg Tab PO 500 mg DAILY DAWIT Administration Clopidogrel Bisulfate 75 mg 07/25/17 10:00 08/25/17 09:17 Plavix PO 75 mg DAILY DAWIT Administration Famotidine 20 mg 08/02/17 10:00 08/26/17 09:32 Pepcid PO 20 mg DAILY DAWIT Administration Finasteride 5 mg 07/25/17 10:00 08/26/17 09:32 Proscar PO 5 mg DAILY DAWIT Administration Heparin Sodium (Porcine) 5,000 units 08/25/17 22:00 08/25/17 21:56 Heparin SC 5,000 units Q12 DAWIT Administration Phenylephrine HCl 30 mg/ 250 mls @ 10 mls/hr 08/23/17 11:00 08/24/17 21:30 Sodium Chloride IV 0 mcg/min .Q24H PRN 0 mls/hr TITRATE PER MD ORDER Titration Protocol 20 MCG/MIN Levothyroxine Sodium 25 mcg 07/25/17 06:30 08/26/17 06:17 Synthroid PO 25 mcg DAILY@0630 DAWIT Administration Megestrol Acetate 400 mg 08/13/17 10:00 08/26/17 09:42 Megace PO 400 mg DAILY DAWIT Administration Metoprolol Tartrate 25 mg 07/26/17 10:30 07/30/17 18:16 Lopressor PO Not Given BID DAWIT Midodrine 5 mg 08/01/17 14:00 08/26/17 09:32 Proamatine PO 5 mg TID DAWIT Administration Multivitamins 1 tab 08/02/17 10:15 08/26/17 09:32 Hexavitamin PO 1 tab DAILY DAWIT Administration Paricalcitol 2 mcg 08/06/17 10:00 08/22/17 11:32 Zemplar IV 2 mcg TTS DAWIT Administration Tamsulosin HCl 0.4 mg 07/25/17 10:00 08/26/17 09:32 Flomax PO 0.4 mg DAILY DAWIT Administration - Patient Studies Lab Studies: Microbiology Studies 08/16/17 10:01 Mycobacterial Culture - Preliminary Other: Please Indicate Lab Studies 08/26/17 08/26/17 08/26/17 Range/Units 06:03 06:03 05:31 WBC 10.1 (4.8-10.8) K/uL RBC 3.28 L (4.40-5.90) Mil/uL Hgb 9.4 L (12.0-18.0) g/dL Hct 29.6 L (35.0-51.0) % MCV 90.1 (80.0-94.0) fL MCH 28.6 (27.0-31.0) pg MCHC 31.7 L (33.0-37.0) g/dL RDW 20.9 H (11.5-14.5) % Plt Count 166 (130-400) K/uL MPV 9.3 (7.2-11.7) fL Neut % (Auto) 64.8 (50.0-75.0) % Lymph % (Auto) 23.5 (20.0-40.0) % [place] % (Auto) 8.6 (0.0-10.0) % Eos % (Auto) 2.3 (0.0-4.0) % Baso % (Auto) 0.8 (0.0-2.0) % Neut # 6.5 (1.8-7.0) K/uL Lymph # 2.4 (1.0-4.3) K/uL [place] # 0.9 H (0.0-0.8) K/uL Eos # 0.2 (0.0-0.7) K/uL Baso # 0.1 (0.0-0.2) K/uL Sodium 136 (132-148) mmol/L Potassium 4.4 (3.6-5.2) mmol/L Chloride 100 (98-107) mmol/L Carbon Dioxide 30 (22-30) mmol/L Anion Gap 10 (10-20) BUN 59 H (9-20) mg/dL Creatinine 3.0 H (0.8-1.5) mg/dL Est GFR ( Amer) 24 Est GFR (Non-Af Amer) 20 POC Glucose (mg/dL) 113 H (65-110) mg/dL Random Glucose 95 (75-110) mg/dL Calcium 8.6 (8.6-10.4) mg/dl Phosphorus 2.7 (2.5-4.5) mg/dL Magnesium 2.6 H (1.6-2.3) mg/dL Total Bilirubin 0.6 (0.2-1.3) mg/dL AST 53 (17-59) U/L ALT 35 (21-72) U/L Alkaline Phosphatase 121 (38-126) U/L Total Protein 6.2 L (6.3-8.3) g/dL Albumin 2.6 L (3.5-5.0) g/dL Globulin 3.5 (2.2-3.9) gm/dL Albumin/Globulin Ratio 0.7 L (1.0-2.1) 08/25/17 08/25/17 08/25/17 Range/Units 23:59 18:19 11:51 WBC (4.8-10.8) K/uL RBC (4.40-5.90) Mil/uL Hgb (12.0-18.0) g/dL Hct (35.0-51.0) % MCV (80.0-94.0) fL MCH (27.0-31.0) pg MCHC (33.0-37.0) g/dL RDW (11.5-14.5) % Plt Count (130-400) K/uL MPV (7.2-11.7) fL Neut % (Auto) (50.0-75.0) % Lymph % (Auto) (20.0-40.0) % [place] % (Auto) (0.0-10.0) % Eos % (Auto) (0.0-4.0) % Baso % (Auto) (0.0-2.0) % Neut # (1.8-7.0) K/uL Lymph # (1.0-4.3) K/uL [place] # (0.0-0.8) K/uL Eos # (0.0-0.7) K/uL Baso # (0.0-0.2) K/uL Sodium (132-148) mmol/L Potassium (3.6-5.2) mmol/L Chloride (98-107) mmol/L Carbon Dioxide (22-30) mmol/L Anion Gap (10-20) BUN (9-20) mg/dL Creatinine (0.8-1.5) mg/dL Est GFR ( Amer) Est GFR (Non-Af Amer) POC Glucose (mg/dL) 105 123 H 113 H (65-110) mg/dL Random Glucose (75-110) mg/dL Calcium (8.6-10.4) mg/dl Phosphorus (2.5-4.5) mg/dL Magnesium (1.6-2.3) mg/dL Total Bilirubin (0.2-1.3) mg/dL AST (17-59) U/L ALT (21-72) U/L Alkaline Phosphatase (38-126) U/L Total Protein (6.3-8.3) g/dL Albumin (3.5-5.0) g/dL Globulin (2.2-3.9) gm/dL Albumin/Globulin Ratio (1.0-2.1) Laboratory Results - last 24 hr 08/25/17 08/25/17 08/25/17 11:51 18:19 23:59 WBC RBC Hgb Hct MCV MCH MCHC RDW Plt Count MPV Neut % (Auto) Lymph % (Auto) [place] % (Auto) Eos % (Auto) Baso % (Auto) Neut # Lymph # [place] # Eos # Baso # Sodium Potassium Chloride Carbon Dioxide Anion Gap BUN Creatinine Est GFR ( Amer) Est GFR (Non-Af Amer) POC Glucose (mg/dL) 113 H 123 H 105 Random Glucose Calcium Phosphorus Magnesium Total Bilirubin AST ALT Alkaline Phosphatase Total Protein Albumin Globulin Albumin/Globulin Ratio 08/26/17 08/26/17 08/26/17 05:31 06:03 06:03 WBC 10.1 RBC 3.28 L Hgb 9.4 L Hct 29.6 L MCV 90.1 MCH 28.6 MCHC 31.7 L RDW 20.9 H Plt Count 166 MPV 9.3 Neut % (Auto) 64.8 Lymph % (Auto) 23.5 [place] % (Auto) 8.6 Eos % (Auto) 2.3 Baso % (Auto) 0.8 Neut # 6.5 Lymph # 2.4 [place] # 0.9 H Eos # 0.2 Baso # 0.1 Sodium 136 Potassium 4.4 Chloride 100 Carbon Dioxide 30 Anion Gap 10 BUN 59 H Creatinine 3.0 H Est GFR ( Amer) 24 Est GFR (Non-Af Amer) 20 POC Glucose (mg/dL) 113 H Random Glucose 95 Calcium 8.6 Phosphorus 2.7 Magnesium 2.6 H Total Bilirubin 0.6 AST 53 ALT 35 Alkaline Phosphatase 121 Total Protein 6.2 L Albumin 2.6 L Globulin 3.5 Albumin/Globulin Ratio 0.7 L Fingerstick Blood Sugar Results: 136 Review of Systems - Review of Systems Systems not reviewed;Unavailable: Dementia (baseline) Critical Care Progress Note - Nutrition Nutrition: Nutrition Category Date Time Status NPO Diet [DIET] Diets 08/16/17 Breakfast Active Assessment/Plan - Assessment and Plan (Free Text) Assessment: Patient is an 82 year old male with past medical history of CAD, HTN, CKD, dementia. Patient presents with AMS from sepsis due to obstructive uropathy. Plan: Respiratory: Extubated on 08/25 CXR 08/25 - Diminished airspace disease right base, nearly resolved. Left basilar airspace disease unchanged. Mild left and minimal right pleural effusions remain. COPD Pneumonia Duoneb 3ml INH RQ6 Ativan 1mg IVP q2h Continue to monitor for complications of extubation GI: s/p PEG insertion tube feedings CV: CAD Plavix 75mg PO daily Relative hypotension - stable and asymptomatic Renal: Dr. Peterson consulted, help appreciated Hemodialysis TTS Paricalcitol 2mcg IV TTS Midodrine 5mg PO TID : Finasteride 5mg PO daily Flomax .4mg PO daily Prophylactic Care: Heparin 5000u SC q8h Pepcid 20mg PO daily Case discussed with Dr. Harsh Tirado Robbie PGY1
--- NOTE | 2017-08-26 12:57 | CP.PCM.PN ---
Subjective - Date & Time of Evaluation Date of Evaluation: 08/26/17 Time of Evaluation: 12:56 - Subjective Subjective: pt is seen and examined, follow up consult is dictated #[id number] 1. esrd 2. chf 3. cardiomyopathy 4. pneumonia, f/u with cardiology f/u with social service for out pt hd unit placement Objective - Vital Signs/Intake and Output Vital Signs (last 24 hours): Temp Pulse Resp BP Pulse Ox 97.5 F L 111 H 23 104/56 L 99 08/26/17 08:00 08/26/17 12:00 08/26/17 12:00 08/26/17 11:59 08/26/17 12:00 Intake and Output: 08/26/17 08/26/17 06:59 18:59 Intake Total 780 470 Output Total 50 0 Balance 730 470 - Medications Medications: Current Medications Ascorbic Acid (Vitamin C 500 Mg Tab) 500 mg PO DAILY [facility] Last Admin: 08/26/17 09:32 Dose: 500 mg Clopidogrel Bisulfate (Plavix) 75 mg PO DAILY [facility] Last Admin: 08/26/17 12:14 Dose: 75 mg Famotidine (Pepcid) 20 mg PO DAILY [facility] Last Admin: 08/26/17 09:32 Dose: 20 mg Finasteride (Proscar) 5 mg PO DAILY [facility] Last Admin: 08/26/17 09:32 Dose: 5 mg Heparin Sodium (Porcine) (Heparin) 5,000 units SC Q12 [facility] Last Admin: 08/26/17 12:14 Dose: 5,000 units Levothyroxine Sodium (Synthroid) 25 mcg PO DAILY@0630 [facility] Last Admin: 08/26/17 06:17 Dose: 25 mcg Megestrol Acetate (Megace) 400 mg PO DAILY [facility] Last Admin: 08/26/17 09:42 Dose: 400 mg Metoprolol Tartrate (Lopressor) 25 mg PO BID [facility] Last Admin: 07/30/17 18:16 Dose: Not Given Midodrine (Proamatine) 5 mg PO TID [facility] Last Admin: 08/26/17 09:32 Dose: 5 mg Multivitamins (Hexavitamin) 1 tab PO DAILY [facility] Last Admin: 08/26/17 09:32 Dose: 1 tab Paricalcitol (Zemplar) 2 mcg IV TTS [facility] Last Admin: 08/22/17 11:32 Dose: 2 mcg Tamsulosin HCl (Flomax) 0.4 mg PO DAILY DAWIT Last Admin: 08/26/17 09:32 Dose: 0.4 mg - Labs Labs: 08/26/17 06:03 08/26/17 06:03 PT 17.1 SECONDS (9.7-12.2) H 08/21/17 17:29 INR 1.5 08/21/17 17:29 APTT 34 SECONDS (21-34) 08/21/17 17:29
--- NOTE | 2017-08-26 17:46 | CP.PCM.PN ---
Subjective - Date & Time of Evaluation Date of Evaluation: 08/26/17 Time of Evaluation: 10:40 - Subjective Subjective: patient seen and examined Extubated yesterday, and no respirator stress Afebrile Objective - Vital Signs/Intake and Output Vital Signs (last 24 hours): Temp Pulse Resp BP Pulse Ox 97 F L 99 H 21 110/66 99 08/26/17 16:00 08/26/17 17:00 08/26/17 17:00 08/26/17 16:59 08/26/17 17:00 Intake and Output: 08/26/17 08/26/17 06:59 18:59 Intake Total 780 895 Output Total 50 0 Balance 730 895 - Medications Medications: Current Medications Ascorbic Acid (Vitamin C 500 Mg Tab) 500 mg PO DAILY [facility] Last Admin: 08/26/17 09:32 Dose: 500 mg Clopidogrel Bisulfate (Plavix) 75 mg PO DAILY [facility] Last Admin: 08/26/17 12:14 Dose: 75 mg Famotidine (Pepcid) 20 mg PO DAILY [facility] Last Admin: 08/26/17 09:32 Dose: 20 mg Finasteride (Proscar) 5 mg PO DAILY [facility] Last Admin: 08/26/17 09:32 Dose: 5 mg Heparin Sodium (Porcine) (Heparin) 5,000 units SC Q12 [facility] Last Admin: 08/26/17 12:14 Dose: 5,000 units Levothyroxine Sodium (Synthroid) 25 mcg PO DAILY@0630 [facility] Last Admin: 08/26/17 06:17 Dose: 25 mcg Megestrol Acetate (Megace) 400 mg PO DAILY [facility] Last Admin: 08/26/17 09:42 Dose: 400 mg Metoprolol Tartrate (Lopressor) 25 mg PO BID [facility] Last Admin: 07/30/17 18:16 Dose: Not Given Midodrine (Proamatine) 5 mg PO TID [facility] Last Admin: 08/26/17 13:21 Dose: 5 mg Multivitamins (Hexavitamin) 1 tab PO DAILY [facility] Last Admin: 08/26/17 09:32 Dose: 1 tab Paricalcitol (Zemplar) 2 mcg IV TTS [facility] Last Admin: 08/22/17 11:32 Dose: 2 mcg Tamsulosin HCl (Flomax) 0.4 mg PO DAILY [facility] Last Admin: 08/26/17 09:32 Dose: 0.4 mg - Labs Labs: 08/26/17 06:03 08/26/17 06:03 PT 17.1 SECONDS (9.7-12.2) H 08/21/17 17:29 INR 1.5 08/21/17 17:29 APTT 34 SECONDS (21-34) 08/21/17 17:29 - Head Exam Head Exam: ATRAUMATIC, NORMOCEPHALIC - ENT Exam ENT Exam: Mucous Membranes Moist - Neck Exam Neck Exam: Normal Inspection - Respiratory Exam Respiratory Exam: Decreased Breath Sounds - Cardiovascular Exam Cardiovascular Exam: REGULAR RHYTHM - GI/Abdominal Exam GI & Abdominal Exam: Soft Assessment and Plan (1) Respiratory failure Assessment & Plan: Status post extubation Continue nebulizer treatment Continue feeding Hemodialysis Status: Acute (2) Pleural effusion Status: Acute (3) Pneumonia Status: Acute (4) Dyspnea Status: Acute
--- NOTE | 2017-08-26 22:05 | CP.PCM.PN ---
Subjective - Date & Time of Evaluation Date of Evaluation: 08/26/17 Time of Evaluation: 18:00 - Subjective Subjective: Pt is extubated, on post extubation care in ICU no acute distress, breathing cormfortabley, arousable no fever, tacycardic with 100 beats / minutes Objective - Vital Signs/Intake and Output Vital Signs (last 24 hours): Temp Pulse Resp BP Pulse Ox 97 F L 105 H 25 H 105/56 L 96 08/26/17 16:00 08/26/17 18:03 08/26/17 18:03 08/26/17 18:03 08/26/17 18:00 Intake and Output: 08/26/17 08/27/17 18:59 06:59 Intake Total 960 Output Total 50 Balance 910 - Medications Medications: Current Medications Ascorbic Acid (Vitamin C 500 Mg Tab) 500 mg PO DAILY [facility] Last Admin: 08/26/17 09:32 Dose: 500 mg Clopidogrel Bisulfate (Plavix) 75 mg PO DAILY [facility] Last Admin: 08/26/17 12:14 Dose: 75 mg Famotidine (Pepcid) 20 mg PO DAILY [facility] Last Admin: 08/26/17 09:32 Dose: 20 mg Finasteride (Proscar) 5 mg PO DAILY [facility] Last Admin: 08/26/17 09:32 Dose: 5 mg Heparin Sodium (Porcine) (Heparin) 5,000 units SC Q12 [facility] Last Admin: 08/26/17 12:14 Dose: 5,000 units Levothyroxine Sodium (Synthroid) 25 mcg PO DAILY@0630 [facility] Last Admin: 08/26/17 06:17 Dose: 25 mcg Megestrol Acetate (Megace) 400 mg PO DAILY [facility] Last Admin: 08/26/17 09:42 Dose: 400 mg Metoprolol Tartrate (Lopressor) 25 mg PO BID [facility] Last Admin: 07/30/17 18:16 Dose: Not Given Midodrine (Proamatine) 5 mg PO TID [facility] Last Admin: 08/26/17 17:46 Dose: 5 mg Multivitamins (Hexavitamin) 1 tab PO DAILY [facility] Last Admin: 08/26/17 09:32 Dose: 1 tab Paricalcitol (Zemplar) 2 mcg IV TTS [facility] Last Admin: 08/22/17 11:32 Dose: 2 mcg Tamsulosin HCl (Flomax) 0.4 mg PO DAILY [facility] Last Admin: 08/26/17 09:32 Dose: 0.4 mg - Labs Labs: 08/26/17 06:03 08/26/17 06:03 PT 17.1 SECONDS (9.7-12.2) H 08/21/17 17:29 INR 1.5 08/21/17 17:29 APTT 34 SECONDS (21-34) 08/21/17 17:29 - Constitutional Appears: No Acute Distress, Chronically Ill - Head Exam Head Exam: ATRAUMATIC, NORMAL INSPECTION, NORMOCEPHALIC - Eye Exam Eye Exam: EOMI, Normal appearance, PERRL Pupil Exam: NORMAL ACCOMODATION, PERRL - ENT Exam ENT Exam: Mucous Membranes Moist - Respiratory Exam Respiratory Exam: Decreased Breath Sounds, Rales - Cardiovascular Exam Cardiovascular Exam: REGULAR RHYTHM, +S1, +S2. absent: Murmur - GI/Abdominal Exam GI & Abdominal Exam: Soft, Normal Bowel Sounds. absent: Tenderness Additional comments: peg site is clean Assessment and Plan (1) Fever Status: Acute (2) Leukocytosis Status: Acute (3) UTI (urinary tract infection) Status: Acute (4) Leg ulcer Status: Acute (5) Toxic metabolic encephalopathy Status: Acute (6) Pleural effusion Status: Acute (7) Respiratory failure Status: Acute (8) Renal failure Status: Acute
[2017-08-27] MEDS: Levothyroxine 25 MCG TAB PO SCH (05:30)
[2017-08-27 06:47] LABS: BASO # 0.1 K/uL (0.0-0.2); BASO % 0.6 % (0.0-2.0); EOS # 0.3 K/uL (0.0-0.7); HEMATOCRIT 30.6 % (35.0-51.0); LYMPH # 1.4 K/uL (1.0-4.3); MEAN CELL VOLUME 90.1 fL (80.0-94.0); MEAN CORPUSCULAR HEMOGLOBIN 28.2 pg (27.0-31.0); MEAN CORPUSCULAR HGB CONC 31.3 g/dL (33.0-37.0); MEAN PLATELET VOLUME 9.8 fL (7.2-11.7); MONO # 0.8 K/uL (0.0-0.8); NRBC % 0.1 % (0.0-2.0); RED CELL DISTRIBUTION WIDTH 21.6 % (11.5-14.5); WHITE BLOOD COUNT 10.1 K/uL (4.8-10.8)
[2017-08-27 07:08] LABS: ALB/GLOB RATIO 0.9 (1.0-2.1); BILIRUBIN,TOTAL 0.5 mg/dL (0.2-1.3); CALCIUM 8.6 mg/dl (8.6-10.4); MAGNESIUM 2.7 mg/dL (1.6-2.3); PHOSPHOROUS 2.6 mg/dL (2.5-4.5); POTASSIUM 3.9 mmol/L (3.6-5.2); TOTAL PROTEIN 5.2 g/dL (6.3-8.3)
--- NOTE | 2017-08-27 07:43 | PN ---
DATE: FOLLOWUP RENAL CONSULTATION LOCATION: Patient is located in ICU bed 9. REQUESTED BY: Daniel Coyle MD. REASON FOR FOLLOWUP: End-stage renal disease, for continuation of the hemodialysis. SUBJECTIVE: Mr. Cunningham is 82 years old elderly male with a past medical history significant for long-standing hypertension, coronary artery disease status post CABG, CHF, gout, renal failure, multiple falls, was recently admitted to intermediate after he was treated for rhabdomyolysis and CHF and now patient was admitted on 07/24/2017 with altered mental status, shortness of breath, and increasing BUN and creatinine and found to have a UTI and status post code sepsis and abnormal LFTs and worsening renal function requiring transfusion and also initiation of hemodialysis in ICU. Subsequently, patient was stabilized and transferred to medical floor. After one week, patient was transferred back to ICU with respiratory failure and requiring intubation. Patient is off ventilator now. Patient is out of bed to chair this morning, status post extra hemodialysis last week. Patient is feeling better, able to make conversation. No chest pain. No palpitation. No fever. No cough. Patient wants to go back to his home or car. PHYSICAL EXAMINATION: VITAL SIGNS: As follows: Blood pressure 105/56, pulse 108, respirations about 22, temperature 97.6, saturation 100%. Height 6 feet 3 inches and weight is 180 pounds. GENERAL: Mr. Cunningham is 82 years old elderly male, moderately built, moderate nourished, not in acute distress. HEENT: Pupils are normal and reactive to light and accommodation. Conjunctivae pink. Sclerae anicteric. Tongue is moist. Trachea is midline. LUNGS: Symmetric on both sides. Bilateral decreased breath sounds at bases. CARDIOVASCULAR SYSTEM: [place] at the fifth intercostal space, midclavicular line. S1 and S2 audible. No murmur or gallop. ABDOMEN: Normal in appearance, soft, tympanic. No guarding. No rigidity. No hepatosplenomegaly. Status post PEG tube placement. CENTRAL NERVOUS SYSTEM: Patient is alert, awake, and oriented x2. Sensory and motor system is grossly within normal limits. EXTREMITIES: No cyanosis, no clubbing. 1+ edema in both upper and lower extremities which is improving slowly. MEDICATIONS: His current medications include as follows: Flomax 0.4 mg p.o. daily, heparin 5000 subcu q.12 hours and multivitamin 1 tablet daily, Megace 400 mg p.o. daily, Pepcid 20 mg p.o. daily, Plavix 75 mg daily, midodrine 5 mg p.o. t.i.d., Proscar 5 mg daily, levothyroxine 25 mcg daily, and vitamin C 500 mg p.o. daily, and Zemplar 2 mcg three times a week. LABORATORY DATA: Include as follows: As of 08/26/2017, WBC 10.1, hemoglobin 9.4, hematocrit is 29.6, platelets 166. Sodium 136, potassium 4.4, chloride 100, CO2 of 30, BUN 59, creatinine 3, glucose 113, calcium 8.6, phosphorus 2.7, magnesium 2.6. Total bili 0.6, AST 53, ALT 35, alkaline phosphatase 121, total protein 6.2, albumin 2.6. ASSESSMENT: In summary, Mr. Cunningham is an 82 years elderly female with hypertension, coronary artery disease status post coronary artery bypass graft, gout, renal failure, anemia with poor left ventricle function and congestive heart failure, pneumonia, status post extubation. 1. End-stage renal disease. Continue hemodialysis three times a week, Saturday, , Saturday. 2. Anemia secondary to renal failure. 3. Congestive heart failure. 4. Cardiomyopathy. 5. Rule out pneumonia. PLAN: Continue current medications. Patient is off IV antibiotics now and continue midodrine and continue Zemplar and continue Procrit during hemodialysis. Continue PEG feeding as per dietary recommendations. Overall prognosis is guarded. Thank you for allowing me to participate in your patient's care. can worker to make arrangement for the outpatient hemodialysis unit placement. Hernan Peterson MD
[2017-08-27] MEDS: Multiple Vitamins Tab PO SCH (09:21)
[2017-08-27] MEDS: Megestrol Acetate 40 mg/ml Cup PO SCH (09:21)
--- NOTE | 2017-08-27 10:02 | US ---
Limited right nikki thorax ultrasound History: Right pleural effusion. Comparison: X-ray dated 08/25/2017 Technique: Limited sonogram was performed through the right nikki thorax. Findings: Limited evaluation of the right nikki thorax demonstrated a small right pleural effusion. Site was marked for thoracentesis performed by Dr. Romero Shelton. Impression: Limited evaluation of the right nikki thorax demonstrated a small right pleural effusion. Site was marked for thoracentesis performed by Dr. Romero Shelton.
--- NOTE | 2017-08-27 10:53 | CP.PCM.PN ---
Subjective - Date & Time of Evaluation Date of Evaluation: 08/27/17 Time of Evaluation: 10:52 - Subjective Subjective: pt is seen and examined, follow up consult is dictated #[id number] Objective - Vital Signs/Intake and Output Vital Signs (last 24 hours): Temp Pulse Resp BP Pulse Ox 97.9 F 100 H 22 108/58 L 99 08/27/17 04:00 08/27/17 09:03 08/27/17 09:03 08/27/17 09:03 08/27/17 09:00 Intake and Output: 08/27/17 08/27/17 06:59 18:59 Intake Total 780 195 Output Total 50 Balance 780 145 - Medications Medications: Current Medications Ascorbic Acid (Vitamin C 500 Mg Tab) 500 mg PO DAILY [facility] Last Admin: 08/27/17 09:21 Dose: 500 mg Clopidogrel Bisulfate (Plavix) 75 mg PO DAILY [facility] Last Admin: 08/27/17 09:21 Dose: 75 mg Famotidine (Pepcid) 20 mg PO DAILY [facility] Last Admin: 08/27/17 09:21 Dose: 20 mg Finasteride (Proscar) 5 mg PO DAILY [facility] Last Admin: 08/27/17 09:21 Dose: 5 mg Heparin Sodium (Porcine) (Heparin) 5,000 units SC Q12 [facility] Last Admin: 08/27/17 09:21 Dose: 5,000 units Levothyroxine Sodium (Synthroid) 25 mcg PO DAILY@0630 [facility] Last Admin: 08/27/17 05:30 Dose: 25 mcg Megestrol Acetate (Megace) 400 mg PO DAILY [facility] Last Admin: 08/27/17 09:21 Dose: 400 mg Metoprolol Tartrate (Lopressor) 25 mg PO BID [facility] Last Admin: 07/30/17 18:16 Dose: Not Given Midodrine (Proamatine) 5 mg PO TID [facility] Last Admin: 08/27/17 09:21 Dose: 5 mg Multivitamins (Hexavitamin) 1 tab PO DAILY [facility] Last Admin: 08/27/17 09:21 Dose: 1 tab Paricalcitol (Zemplar) 2 mcg IV TTS [facility] Last Admin: 08/22/17 11:32 Dose: 2 mcg Tamsulosin HCl (Flomax) 0.4 mg PO DAILY [facility] Last Admin: 08/27/17 09:21 Dose: 0.4 mg - Labs Labs: 08/27/17 06:37 08/27/17 06:37 PT 17.1 SECONDS (9.7-12.2) H 08/21/17 17:29 INR 1.5 08/21/17 17:29 APTT 34 SECONDS (21-34) 08/21/17 17:29
--- NOTE | 2017-08-27 10:55 | PN ---
DATE: LOCATION: ICU 9. SUBJECTIVE: This is an 82 years old male seen and examined in rounds, appeared to be somewhat respond to painful stimuli with clear speech, but with incontinence of fecal material without reported active bleeding recently. The entire chart is reviewed including but no limited to the most recent lab and radiology study results, current and the previous medication list, current and the previous medical events and the patient on CPAP. Today's labs showed hemoglobin of 9.6, hematocrit 30.6, stable with normal white blood cells and platelet count with BUN of 75, creatinine 3.5, blood glucose level 134, increased magnesium 2.7 with low albumin 2.4, low total protein 5.2. Joint effusion ultrasound done yesterday, report is still pending. PHYSICAL EXAMINATION: GENERAL: An 82 years old male. VITAL SIGNS: Afebrile with heart rate of 100 with blood pressure 110/52, respiratory rate is 20 to 22. HEENT: Showed pale dry oral mucous membrane. Nonicteric sclerae. LUNGS: Few scattered crepitation. Decreased air entry at bases. HEART: Positive S1 and S2. ABDOMEN: Soft. Bowel sounds are present with mild generalized tenderness. No mass or organomegaly. No rebound tenderness or guarding. EXTREMITIES: Without significant clubbing, cyanosis or edema. NEUROLOGIC: No reported new neurological deficits, sensory or motor. IMPRESSION: 1. Failure to thrive. 2. Malnutrition. 3. Hypoalbuminemia. 4. Status post percutaneous endoscopic gastrostomy insertion, percutaneous endoscopic gastrostomy tube is in place intact with well formed stoma without reported bleeding, resistant or residual. 5. Anemia secondary to chronic disease. 6. Known history of hypertension, congestive heart failure and coronary artery disease. 7. End-stage renal disease, on hemodialysis. 8. Recently reported pneumonia with respiratory failure, had been on continuous positive airway pressure. SUGGESTION: 1. Continue current management. 2. Adjust PEG feeding rate. 3. Repeat stool for occult blood. Katia Pardo MD
[2017-08-27] MEDS ORDERED: Albumin Human 25% (12.5 gm/50 ml) IV ONE ×2 (11:00→11:15)
[2017-08-27] MEDS: Paricalcitol 2 mcg/ml Inj IV SCH (12:23)
--- NOTE | 2017-08-27 21:52 | CP.PCM.PN ---
Subjective - Date & Time of Evaluation Date of Evaluation: 08/27/17 Time of Evaluation: 20:00 - Subjective Subjective: Pt seen and examined ta bedside, is still weak, lethargic Objective - Vital Signs/Intake and Output Vital Signs (last 24 hours): Temp Pulse Resp BP Pulse Ox 97.4 F L 102 H 23 91/52 L 98 08/27/17 16:00 08/27/17 19:53 08/27/17 19:53 08/27/17 19:53 08/27/17 19:53 Intake and Output: 08/27/17 08/28/17 18:59 06:59 Intake Total 840 65 Output Total 50 0 Balance 790 65 - Medications Medications: Current Medications Ascorbic Acid (Vitamin C 500 Mg Tab) 500 mg PO DAILY [facility] Last Admin: 08/27/17 09:21 Dose: 500 mg Clopidogrel Bisulfate (Plavix) 75 mg PO DAILY [facility] Last Admin: 08/27/17 09:21 Dose: 75 mg Famotidine (Pepcid) 20 mg PO DAILY [facility] Last Admin: 08/27/17 09:21 Dose: 20 mg Finasteride (Proscar) 5 mg PO DAILY [facility] Last Admin: 08/27/17 09:21 Dose: 5 mg Heparin Sodium (Porcine) (Heparin) 5,000 units SC Q12 [facility] Last Admin: 08/27/17 09:21 Dose: 5,000 units Levothyroxine Sodium (Synthroid) 25 mcg PO DAILY@0630 [facility] Last Admin: 08/27/17 05:30 Dose: 25 mcg Megestrol Acetate (Megace) 400 mg PO DAILY [facility] Last Admin: 08/27/17 09:21 Dose: 400 mg Metoprolol Tartrate (Lopressor) 25 mg PO BID [facility] Last Admin: 07/30/17 18:16 Dose: Not Given Midodrine (Proamatine) 5 mg PO TID [facility] Last Admin: 08/27/17 18:31 Dose: 5 mg Multivitamins (Hexavitamin) 1 tab PO DAILY [facility] Last Admin: 08/27/17 09:21 Dose: 1 tab Paricalcitol (Zemplar) 2 mcg IV TTS [facility] Last Admin: 08/27/17 12:23 Dose: 2 mcg Tamsulosin HCl (Flomax) 0.4 mg PO DAILY [facility] Last Admin: 08/27/17 09:21 Dose: 0.4 mg - Labs Labs: 08/27/17 06:37 08/27/17 06:37 PT 17.1 SECONDS (9.7-12.2) H 08/21/17 17:29 INR 1.5 08/21/17 17:29 APTT 34 SECONDS (21-34) 08/21/17 17:29 - Constitutional Appears: No Acute Distress - Head Exam Head Exam: ATRAUMATIC, NORMAL INSPECTION, NORMOCEPHALIC - Eye Exam Eye Exam: EOMI, Normal appearance, PERRL Pupil Exam: NORMAL ACCOMODATION, PERRL - Respiratory Exam Respiratory Exam: Clear to Ausculation Bilateral - Cardiovascular Exam Cardiovascular Exam: REGULAR RHYTHM - GI/Abdominal Exam GI & Abdominal Exam: Soft, Normal Bowel Sounds. absent: Tenderness Assessment and Plan (1) Fever Status: Acute (2) Leukocytosis Status: Acute (3) UTI (urinary tract infection) Status: Acute (4) Leg ulcer Status: Acute (5) Toxic metabolic encephalopathy Status: Acute (6) Pleural effusion Status: Acute (7) Respiratory failure Status: Resolved (8) Renal failure Status: Acute
[2017-08-28] MEDS: Levothyroxine 25 MCG TAB PO SCH (06:47)
--- NOTE | 2017-08-28 10:13 | PN ---
FOLLOWUP RENAL CONSULTATION LOCATION: The patient is located in ICU bed 9. REQUESTED BY: Daniel Coyle MD. REASON FOR RENAL CONSULTATION: End-stage renal disease, continuation of hemodialysis. SUBJECTIVE: Mr. Cunningham is an 82 years old elderly -[place]el[place] male with a history of longstanding hypertension; coronary artery disease, status post CABG; gout; renal failure; multiple falls; was recently admitted from the senior care on 07/24/2017 with altered mental status and shortness of breath and found to have increased BUN and creatinine and UTI, status post code sepsis, status post hypertension requiring transfer to ICU and with worsening renal function and anemia. The patient was started on hemodialysis, status post transfusion. Subsequently, the patient was stabilized and transferred to a medical floor. After a week, again the patient was transferred back to the ICU for respiratory failure and requiring intubation and pressors. Now, the patient is extubated. The patient is out of bed to chair. Following simple commands, not in any distress. The patient is being dialyzed this morning during my evaluation. The patient was also hypotensive, unable to tolerate any ultrafiltration this morning. The patient was also advised to give albumin 25% 50 mL q. 1 hour x2 dosage during hemodialysis. If the blood pressure comes up, we will try to ultrafiltrate about 1 L this morning. The patient is not in any distress. PHYSICAL EXAMINATION: GENERAL: Mr. Cunningham is an 82 years old elderly male, moderately built, moderately nourished, not in any distress. VITAL SIGNS: Blood pressure 79/41 during my examination, pulse 98, respirations about 16 and temperature 97.8. HEENT: Pupils are normal and reactive to light and accommodation. Conjunctivae are pink. Sclerae are anicteric. Tongue is moist. Trachea is midline. LUNGS: Symmetric on both sides. Bilateral breath sounds present. Occasional basal crackles present. CARDIOVASCULAR SYSTEM: [place] at the fifth intercostal space, midclavicular line. S1 and S2 audible. No murmur. No gallop. The patient has a midsternal scar present. ABDOMEN: Soft, tympanic. No guarding. No rigidity. No hepatosplenomegaly. The patient has a PEG tube. CENTRAL NERVOUS SYSTEM: The patient is alert, awake, following simple commands. EXTREMITIES: No cyanosis. No clubbing. The patient has trace edema in both upper and lower extremities. LABORATORY DATA: His laboratory data this morning as of 08/27/2017, WBC 10.1, hemoglobin 9.6, hematocrit is 30.6, platelets 180. Sodium 132 and potassium 3.9, chloride 99, CO2 of 31, BUN 75, creatinine 3.5, glucose 134, calcium 8.6, phosphorus 2.6, magnesium 2.7, total bili 0.5, AST 41, ALT 29, alkaline phosphatase 148, total protein 5.2, albumin is 2.4. MEDICATIONS: His current medications include as follows. Flomax 0.4 mg p.o. daily and heparin subcu 5000 q. 12 hours, multivitamin 1 tablet daily, Megace 400 mg p.o. daily, Pepcid 20 mg daily, Plavix 75 mg daily, midodrine 5 mg p.o. t.i.d. and Proscar 5 mg daily, Synthroid 25 mcg p.o. daily and vitamin C 500 mg p.o. daily and Zemplar 2 mcg 3 times a week. ASSESSMENT AND PLAN: In summary, Mr. Cunningham is an 82 years old elderly -[place]el[place] male with a history of hypertension; coronary artery disease, status post coronary artery bypass graft; gout; chronic kidney disease with worsening renal function; anemia; status post intubation and extubation for respiratory failure. 1. End-stage renal disease. Continue hemodialysis 3 times a week, Saturday, , Saturday. 2. Hypertension. 3. Cardiomyopathy. 4. Anemia secondary to renal failure. PLAN: Continue hemodialysis as tolerated and albumin 25% 50 mL q. 1 hour x2 dosage during dialysis today. Overall prognosis is guarded. We will follow up with you. Thank you for allowing me to participate in your patient's care. Hernan Peterson MD
[2017-08-28] MEDS: Multiple Vitamins Tab PO SCH (10:23)
[2017-08-28] MEDS: Megestrol Acetate 40 mg/ml Cup PO SCH (12:01)
--- NOTE | 2017-08-28 12:42 | CP.PCM.PN ---
Subjective - Date & Time of Evaluation Date of Evaluation: 08/28/17 Time of Evaluation: 12:41 - Subjective Subjective: pt is seen and examined, follow up consult is dictated #[id number] Objective - Vital Signs/Intake and Output Vital Signs (last 24 hours): Temp Pulse Resp BP Pulse Ox 98 F 113 H 10 L 82/47 L 97 08/28/17 12:00 08/28/17 12:00 08/28/17 12:00 08/28/17 11:53 08/28/17 12:00 Intake and Output: 08/28/17 08/28/17 06:59 18:59 Intake Total 780 540 Output Total 0 5 Balance 780 535 - Medications Medications: Current Medications Ascorbic Acid (Vitamin C 500 Mg Tab) 500 mg PO DAILY [facility] Last Admin: 08/28/17 10:23 Dose: 500 mg Clopidogrel Bisulfate (Plavix) 75 mg PO DAILY [facility] Last Admin: 08/28/17 10:23 Dose: 75 mg Famotidine (Pepcid) 20 mg PO DAILY [facility] Last Admin: 08/28/17 10:24 Dose: 20 mg Finasteride (Proscar) 5 mg PO DAILY [facility] Last Admin: 08/28/17 10:23 Dose: 5 mg Heparin Sodium (Porcine) (Heparin) 5,000 units SC Q12 [facility] Last Admin: 08/28/17 10:24 Dose: 5,000 units Levothyroxine Sodium (Synthroid) 25 mcg PO DAILY@0630 [facility] Last Admin: 08/28/17 06:47 Dose: 25 mcg Metoprolol Tartrate (Lopressor) 25 mg PO BID [facility] Last Admin: 07/30/17 18:16 Dose: Not Given Midodrine (Proamatine) 5 mg PO TID [facility] Last Admin: 08/28/17 10:23 Dose: 5 mg Multivitamins (Hexavitamin) 1 tab PO DAILY [facility] Last Admin: 08/28/17 10:23 Dose: 1 tab Paricalcitol (Zemplar) 2 mcg IV TTS [facility] Last Admin: 08/27/17 12:23 Dose: 2 mcg Tamsulosin HCl (Flomax) 0.4 mg PO DAILY [facility] Last Admin: 08/28/17 10:23 Dose: 0.4 mg - Labs Labs: 08/27/17 06:37 08/27/17 06:37 PT 17.1 SECONDS (9.7-12.2) H 08/21/17 17:29 INR 1.5 08/21/17 17:29 APTT 34 SECONDS (21-34) 08/21/17 17:29
--- NOTE | 2017-08-28 13:43 | PN ---
DATE: LOCATION: ICU, 9. SUBJECTIVE: This is an 82-year-old male seen and examined in rounds without significant clinical changes, appeared to be somewhat more awake and follow commands on occasions. Patient is still incontinent of fecal material, tolerating PEG feeding well. The entire chart is reviewed including, but not limited to the most recent lab and radiology study results, current and the previous medication list, current and the previous medical events and today's lab is still pending results. Patient still has low hemoglobin and hematocrit with increased BUN and creatinine, on hemodialysis with low albumin and low total protein. PHYSICAL EXAMINATION GENERAL: An 82-year-old male. VITAL SIGNS: Afebrile with pulse of 104, blood pressure 100/56 with respiratory insufficiency. HEENT: Showed pale, dry oral mucous membrane. Nonicteric sclerae. LUNGS: Scattered crepitation with decreased air entry at bases. HEART: Positive S1 and S2 with increased rate. ABDOMEN: Soft. Bowel sounds are present. PEG tube is in place with evidence of mild anterior abdominal wall cellulitis. No mass or organomegaly. NEUROLOGIC: No reported new neurological deficits, sensory or motor. IMPRESSION: 1. Malnutrition. 2. Hypoalbuminemia. 3. Status post percutaneous endoscopic gastrostomy insertion. 4. Renal failure, on hemodialysis. 5. Anemia secondary to above. 6. Pneumonia with respiratory insufficiency. SUGGESTIONS: 1. Continue current management. 2. Subsequent increase of the rate of feeding as tolerated. Katia Pardo MD
--- NOTE | 2017-08-28 16:57 | CP.PCM.PN ---
Subjective - Date & Time of Evaluation Date of Evaluation: 08/28/17 Time of Evaluation: 16:56 - Subjective Subjective: awake,sitting in chair in nad.lvef of 25%. Objective - Vital Signs/Intake and Output Vital Signs (last 24 hours): Temp Pulse Resp BP Pulse Ox 98.3 F 116 H 11 L 93/49 L 95 08/28/17 16:00 08/28/17 16:00 08/28/17 16:00 08/28/17 15:07 08/28/17 16:00 Intake and Output: 08/28/17 08/28/17 06:59 18:59 Intake Total 780 880 Output Total 0 5 Balance 780 875 - Medications Medications: Current Medications Ascorbic Acid (Vitamin C 500 Mg Tab) 500 mg PO DAILY [facility] Last Admin: 08/28/17 10:23 Dose: 500 mg Clopidogrel Bisulfate (Plavix) 75 mg PO DAILY [facility] Last Admin: 08/28/17 10:23 Dose: 75 mg Famotidine (Pepcid) 20 mg PO DAILY [facility] Last Admin: 08/28/17 10:24 Dose: 20 mg Finasteride (Proscar) 5 mg PO DAILY [facility] Last Admin: 08/28/17 10:23 Dose: 5 mg Heparin Sodium (Porcine) (Heparin) 5,000 units SC Q12 [facility] Last Admin: 08/28/17 10:24 Dose: 5,000 units Levothyroxine Sodium (Synthroid) 25 mcg PO DAILY@0630 [facility] Last Admin: 08/28/17 06:47 Dose: 25 mcg Megestrol Acetate (Megace) 400 mg PO DAILY [facility] Midodrine (Proamatine) 5 mg PO TID [facility] Last Admin: 08/28/17 13:05 Dose: 5 mg Multivitamins (Hexavitamin) 1 tab PO DAILY [facility] Last Admin: 08/28/17 10:23 Dose: 1 tab Paricalcitol (Zemplar) 2 mcg IV TTS [facility] Last Admin: 08/27/17 12:23 Dose: 2 mcg Tamsulosin HCl (Flomax) 0.4 mg PO DAILY [facility] Last Admin: 08/28/17 10:23 Dose: 0.4 mg - Labs Labs: 08/27/17 06:37 08/27/17 06:37 PT 17.1 SECONDS (9.7-12.2) H 08/21/17 17:29 INR 1.5 08/21/17 17:29 APTT 34 SECONDS (21-34) 08/21/17 17:29 - Constitutional Appears: No Acute Distress, Chronically Ill - Neck Exam Neck Exam: Normal Inspection - Respiratory Exam Respiratory Exam: Decreased Breath Sounds - Cardiovascular Exam Cardiovascular Exam: Tachycardia, REGULAR RHYTHM - GI/Abdominal Exam GI & Abdominal Exam: Soft - Extremities Exam Extremities Exam: absent: Pedal Edema - Neurological Exam Neurological Exam: Alert, Oriented x3 Assessment and Plan - Assessment and Plan (Free Text) Assessment: will decrese lopressor to 12.5 bid. & observe.
--- NOTE | 2017-08-28 17:37 | CP.PCM.PN ---
Subjective - Date & Time of Evaluation Date of Evaluation: 08/28/17 Time of Evaluation: 08:00 - Subjective Subjective: awake alert NAD less SOB afebrile Objective - Vital Signs/Intake and Output Vital Signs (last 24 hours): Temp Pulse Resp BP Pulse Ox 98.3 F 116 H 14 98/52 L 96 08/28/17 16:00 08/28/17 17:07 08/28/17 17:07 08/28/17 17:07 08/28/17 17:00 Intake and Output: 08/28/17 08/28/17 06:59 18:59 Intake Total 780 945 Output Total 0 5 Balance 780 940 - Medications Medications: Current Medications Ascorbic Acid (Vitamin C 500 Mg Tab) 500 mg PO DAILY [facility] Last Admin: 08/28/17 10:23 Dose: 500 mg Clopidogrel Bisulfate (Plavix) 75 mg PO DAILY [facility] Last Admin: 08/28/17 10:23 Dose: 75 mg Famotidine (Pepcid) 20 mg PO DAILY [facility] Last Admin: 08/28/17 10:24 Dose: 20 mg Finasteride (Proscar) 5 mg PO DAILY [facility] Last Admin: 08/28/17 10:23 Dose: 5 mg Heparin Sodium (Porcine) (Heparin) 5,000 units SC Q12 [facility] Last Admin: 08/28/17 10:24 Dose: 5,000 units Levothyroxine Sodium (Synthroid) 25 mcg PO DAILY@0630 [facility] Last Admin: 08/28/17 06:47 Dose: 25 mcg Megestrol Acetate (Megace) 400 mg PO DAILY [facility] Metoprolol Tartrate (Lopressor) 12.5 mg PO BID [facility] Midodrine (Proamatine) 5 mg PO TID [facility] Last Admin: 08/28/17 13:05 Dose: 5 mg Multivitamins (Hexavitamin) 1 tab PO DAILY [facility] Last Admin: 08/28/17 10:23 Dose: 1 tab Paricalcitol (Zemplar) 2 mcg IV TTS [facility] Last Admin: 08/27/17 12:23 Dose: 2 mcg Tamsulosin HCl (Flomax) 0.4 mg PO DAILY [facility] Last Admin: 08/28/17 10:23 Dose: 0.4 mg - Labs Labs: 08/27/17 06:37 08/27/17 06:37 PT 17.1 SECONDS (9.7-12.2) H 11/29/17 17:29 INR 1.5 08/21/17 17:29 APTT 34 SECONDS (21-34) 08/21/17 17:29 - Constitutional Appears: Non-toxic, Chronically Ill - Head Exam Head Exam: NORMOCEPHALIC - Eye Exam Eye Exam: PERRL - ENT Exam ENT Exam: Mucous Membranes Dry - Neck Exam Neck Exam: absent: Lymphadenopathy - Respiratory Exam Respiratory Exam: Decreased Breath Sounds - Cardiovascular Exam Cardiovascular Exam: REGULAR RHYTHM - GI/Abdominal Exam GI & Abdominal Exam: Distended, Soft Assessment and Plan (1) Fever Status: Acute (2) Leukocytosis Status: Acute (3) UTI (urinary tract infection) Status: Acute (4) Acute renal failure Status: Acute (5) Generalized weakness Status: Acute (6) Hyperkalemia Status: Acute (7) Troponin level elevated Status: Acute (8) UTI (urinary tract infection) due to Enterococcus Status: Acute (9) UTI (urinary tract infection) due to Enterococcus Status: Acute (10) UTI due to Klebsiella species Status: Acute (11) UTI due to Klebsiella species Status: Acute
--- NOTE | 2017-08-28 18:38 | CP.PCM.PN ---
Subjective - Date & Time of Evaluation Date of Evaluation: 08/28/17 Time of Evaluation: 10:30 - Subjective Subjective: Patient seen and examined Lying comfortably in no acute distress No shortness of breath patient is awake and responsive Objective - Vital Signs/Intake and Output Vital Signs (last 24 hours): Temp Pulse Resp BP Pulse Ox 98.3 F 114 H 19 98/52 L 96 08/28/17 16:00 08/28/17 18:00 08/28/17 18:00 08/28/17 17:07 08/28/17 18:00 Intake and Output: 08/28/17 08/28/17 06:59 18:59 Intake Total 780 1110 Output Total 0 5 Balance 780 1105 - Medications Medications: Current Medications Ascorbic Acid (Vitamin C 500 Mg Tab) 500 mg PO DAILY [facility] Last Admin: 08/28/17 10:23 Dose: 500 mg Clopidogrel Bisulfate (Plavix) 75 mg PO DAILY [facility] Last Admin: 08/28/17 10:23 Dose: 75 mg Famotidine (Pepcid) 20 mg PO DAILY [facility] Last Admin: 08/28/17 10:24 Dose: 20 mg Finasteride (Proscar) 5 mg PO DAILY [facility] Last Admin: 08/28/17 10:23 Dose: 5 mg Heparin Sodium (Porcine) (Heparin) 5,000 units SC Q12 [facility] Last Admin: 08/28/17 10:24 Dose: 5,000 units Levothyroxine Sodium (Synthroid) 25 mcg PO DAILY@0630 [facility] Last Admin: 08/28/17 06:47 Dose: 25 mcg Megestrol Acetate (Megace) 400 mg PO DAILY [facility] Metoprolol Tartrate (Lopressor) 12.5 mg PO BID [facility] Last Admin: 08/28/17 18:05 Dose: 12.5 mg Midodrine (Proamatine) 5 mg PO TID [facility] Last Admin: 08/28/17 18:05 Dose: 5 mg Multivitamins (Hexavitamin) 1 tab PO DAILY [facility] Last Admin: 08/28/17 10:23 Dose: 1 tab Paricalcitol (Zemplar) 2 mcg IV TTS [facility] Last Admin: 08/27/17 12:23 Dose: 2 mcg Tamsulosin HCl (Flomax) 0.4 mg PO DAILY [facility] Last Admin: 08/28/17 10:23 Dose: 0.4 mg - Labs Labs: 08/27/17 06:37 08/27/17 06:37 PT 17.1 SECONDS (9.7-12.2) H 08/21/17 17:29 INR 1.5 08/21/17 17:29 APTT 34 SECONDS (21-34) 08/21/17 17:29 - Head Exam Head Exam: ATRAUMATIC, NORMOCEPHALIC - ENT Exam ENT Exam: Mucous Membranes Moist - Neck Exam Neck Exam: Normal Inspection - Respiratory Exam Respiratory Exam: Decreased Breath Sounds Assessment and Plan (1) Pleural effusion Assessment & Plan: follow-up chest x-ray Continue present treatment Continue hemodialysis Status: Acute (2) Pneumonia Status: Acute (3) Dyspnea Status: Acute
--- NOTE | 2017-08-28 22:31 | CP.PCM.PN ---
Subjective - Date & Time of Evaluation Date of Evaluation: 08/28/17 Time of Evaluation: 18:00 - Subjective Subjective: Pt seeb abd evaluated, is more alrt, breathing on his own on oxygen, no n/v Objective - Vital Signs/Intake and Output Vital Signs (last 24 hours): Temp Pulse Resp BP Pulse Ox 98.3 F 105 H 17 85/50 L 100 08/28/17 16:00 08/28/17 19:07 08/28/17 19:07 08/28/17 19:07 08/28/17 19:07 Intake and Output: 08/28/17 08/29/17 18:59 06:59 Intake Total 1110 65 Output Total 5 0 Balance 1105 65 - Medications Medications: Current Medications Ascorbic Acid (Vitamin C 500 Mg Tab) 500 mg PO DAILY [facility] Last Admin: 08/28/17 10:23 Dose: 500 mg Clopidogrel Bisulfate (Plavix) 75 mg PO DAILY [facility] Last Admin: 08/28/17 10:23 Dose: 75 mg Famotidine (Pepcid) 20 mg PO DAILY [facility] Last Admin: 08/28/17 10:24 Dose: 20 mg Finasteride (Proscar) 5 mg PO DAILY [facility] Last Admin: 08/28/17 10:23 Dose: 5 mg Heparin Sodium (Porcine) (Heparin) 5,000 units SC Q12 [facility] Last Admin: 08/28/17 21:37 Dose: 5,000 units Levothyroxine Sodium (Synthroid) 25 mcg PO DAILY@0630 [facility] Last Admin: 08/28/17 06:47 Dose: 25 mcg Megestrol Acetate (Megace) 400 mg PO DAILY [facility] Metoprolol Tartrate (Lopressor) 12.5 mg PO BID [facility] Last Admin: 08/28/17 18:05 Dose: 12.5 mg Midodrine (Proamatine) 5 mg PO TID [facility] Last Admin: 08/28/17 18:05 Dose: 5 mg Multivitamins (Hexavitamin) 1 tab PO DAILY [facility] Last Admin: 08/28/17 10:23 Dose: 1 tab Paricalcitol (Zemplar) 2 mcg IV TTS [facility] Last Admin: 08/27/17 12:23 Dose: 2 mcg Tamsulosin HCl (Flomax) 0.4 mg PO DAILY [facility] Last Admin: 08/28/17 10:23 Dose: 0.4 mg - Labs Labs: 08/27/17 06:37 08/27/17 06:37 PT 17.1 SECONDS (9.7-12.2) H 08/21/17 17:29 INR 1.5 08/21/17 17:29 APTT 34 SECONDS (21-34) 08/21/17 17:29 - Constitutional Appears: No Acute Distress, Chronically Ill - Head Exam Head Exam: ATRAUMATIC, NORMAL INSPECTION, NORMOCEPHALIC - Eye Exam Eye Exam: EOMI, Normal appearance, PERRL Pupil Exam: NORMAL ACCOMODATION, PERRL - Respiratory Exam Respiratory Exam: Decreased Breath Sounds, Rales - Cardiovascular Exam Cardiovascular Exam: Tachycardia - GI/Abdominal Exam GI & Abdominal Exam: Soft, Normal Bowel Sounds. absent: Tenderness Assessment and Plan (1) Fever Status: Acute (2) Leukocytosis Status: Acute (3) UTI (urinary tract infection) Status: Acute (4) Leg ulcer Status: Acute (5) Toxic metabolic encephalopathy Status: Acute (6) Pleural effusion Status: Acute (7) Respiratory failure Assessment & Plan: on oxygen in ICU post extubation Status: Resolved (8) Renal failure Status: Acute
--- NOTE | 2017-08-29 01:07 | PN ---
DATE: FOLLOWUP RENAL CONSULTATION LOCATION: ICU, bed 9. REQUESTED BY: Dr. Daniel Coyle. REASON FOR FOLLOWUP: End-stage renal disease condition with hemodialysis. HISTORY OF PRESENT ILLNESS: Mr. Cunningham is an 82-year-old elderly male with a past medical history significant for longstanding hypertension, coronary artery disease status post CABG, gout, CHF, and chronic kidney disease, who was admitted from the intermediate on 07/24/2017 with chief complaints of shortness of breath, altered mental status, and found to have urosepsis, and status post code sepsis, and transferred to ICU x2, status post extubation few days ago. The patient is out of bed to chair. The patient is still hypotensive and tachycardic this morning. Denies any chest pain. Denies any shortness of breath. The patient's is at bedside. PHYSICAL EXAMINATION: VITAL SIGNS: As follows; blood pressure 82/47, pulse 115, respirations 18, temperature 98, and saturation is 97% on 3 liters nasal cannula. Height 6 feet 3 inches and weight is 191 pounds. GENERAL: Mr. Cunningham is an 82-year-old elderly male, moderate-built, moderate-nourished, not in distress. HEENT: Pupils normal, reactive to light and accommodation. Conjunctivae are pink. Sclerae anicteric. Tongue is moist and trachea is midline. LUNGS: Symmetric on both sides. Bilateral breath sounds present. Occasional basal crackles present. CVS: [place] at the fifth intercostal space, midclavicular line. S1, S2 audible. Tachycardic. Occasionally irregularly irregular. ABDOMEN: Normal in appearance, soft, tympanic. No guarding. No rigidity. No hepatosplenomegaly. The patient has a PEG tube. RADIATION THERAPY TECHNOLOGIST: The patient is alert, awake, oriented x2. Sensory and motor system is grossly within normal limits. EXTREMITIES: No cyanosis, no clubbing. Trace edema in both upper and lower extremities. CURRENT MEDICATIONS: Include as follows; Flomax 0.4 mg p.o. daily, heparin 5000 units q.12h., multivitamin 1 tablet daily, Lopressor 12.5 mg p.o. b.i.d., Megace 400 mg p.o. daily, Pepcid 20 mg p.o. daily, Plavix 75 mg daily, midodrine 5 mg p.o. t.i.d., Synthroid 25 mcg p.o. daily, vitamin C 500 mg daily, Zemplar 2 mcg three times a week. LABORATORY DATA: No new labs are available. His Accu-Cheks is 113 this morning. ASSESSMENT AND PLAN: In summary, Mr. Cunningham is an 82-year-old elderly male with a past medical history significant for hypertension, coronary artery disease status post CABG, gout, renal failure, anemia, congestive heart failure with cardiomyopathy, tachycardic. 1. Renal failure, end-stage renal disease. Continue hemodialysis three times a week; Saturday, , Saturday. 2. Anemia, secondary to renal failure. 3. Cardiomyopathy. 4. Tachycardia, rule out sinus tachycardia versus atrial fibrillation. Continue to follow up with Dr. Jeffery Thrasher. Case discussed with Dr. Jeffery Thrasher this afternoon in rounds. We will follow with you. Thank you for allowing me to participate in your patient's care for HD in a.m. Overall prognosis is guarded. Hernan Peterson MD cc:
[2017-08-29] MEDS: Levothyroxine 25 MCG TAB PO SCH (06:11)
[2017-08-29] MEDS: Paricalcitol 2 mcg/ml Inj IV SCH (09:47)
[2017-08-29] MEDS: Multiple Vitamins Tab PO SCH (09:47)
[2017-08-29] MEDS ORDERED: Megestrol Acetate 40 mg/ml Cup PO SCH ×2 (10:00)
--- NOTE | 2017-08-29 12:49 | CP.PCM.PN ---
Subjective - Date & Time of Evaluation Date of Evaluation: 08/29/17 Time of Evaluation: 12:49 - Subjective Subjective: pt is seen and examined, follow up consult is dictated #[id number] Objective - Vital Signs/Intake and Output Vital Signs (last 24 hours): Temp Pulse Resp BP Pulse Ox 96 F L 100 H 22 91/57 L 97 08/29/17 12:20 08/29/17 12:20 08/29/17 12:20 08/29/17 12:20 08/29/17 12:20 Intake and Output: 08/29/17 08/29/17 06:59 18:59 Intake Total 780 1205 Output Total 150 160 Balance 630 1045 - Medications Medications: Current Medications Ascorbic Acid (Vitamin C 500 Mg Tab) 500 mg PO DAILY [facility] Last Admin: 08/29/17 09:47 Dose: 500 mg Clopidogrel Bisulfate (Plavix) 75 mg PO DAILY [facility] Last Admin: 08/29/17 09:46 Dose: 75 mg Famotidine (Pepcid) 20 mg PO DAILY [facility] Last Admin: 08/29/17 09:47 Dose: 20 mg Finasteride (Proscar) 5 mg PO DAILY [facility] Last Admin: 08/29/17 09:47 Dose: 5 mg Heparin Sodium (Porcine) (Heparin) 5,000 units SC Q12 [facility] Last Admin: 08/29/17 09:47 Dose: 5,000 units Levothyroxine Sodium (Synthroid) 25 mcg PO DAILY@0630 [facility] Last Admin: 08/29/17 06:11 Dose: 25 mcg Megestrol Acetate (Megace) 400 mg PO DAILY [facility] Last Admin: 08/29/17 09:49 Dose: 400 mg Metoprolol Tartrate (Lopressor) 12.5 mg PO BID [facility] Last Admin: 08/29/17 09:48 Dose: Not Given Midodrine (Proamatine) 5 mg PO TID [facility] Last Admin: 08/29/17 09:47 Dose: 5 mg Multivitamins (Hexavitamin) 1 tab PO DAILY [facility] Last Admin: 08/29/17 09:47 Dose: 1 tab Paricalcitol (Zemplar) 2 mcg IV TTS [facility] Last Admin: 08/29/17 09:47 Dose: 2 mcg Tamsulosin HCl (Flomax) 0.4 mg PO DAILY [facility] Last Admin: 08/29/17 09:47 Dose: 0.4 mg - Labs Labs: 08/27/17 06:37 08/27/17 06:37 PT 17.1 SECONDS (9.7-12.2) H 08/21/17 17:29 INR 1.5 08/21/17 17:29 APTT 34 SECONDS (21-34) 08/21/17 17:29
--- NOTE | 2017-08-29 13:26 | CP.PCM.PN ---
Subjective - Date & Time of Evaluation Date of Evaluation: 08/29/17 Time of Evaluation: 13:25 - Subjective Subjective: sitting in chair in nad.finished dyalysis. Objective - Vital Signs/Intake and Output Vital Signs (last 24 hours): Temp Pulse Resp BP Pulse Ox 96 F L 100 H 22 91/57 L 97 08/29/17 12:20 08/29/17 12:20 08/29/17 12:20 08/29/17 12:20 08/29/17 12:20 Intake and Output: 08/29/17 08/29/17 06:59 18:59 Intake Total 780 1205 Output Total 150 160 Balance 630 1045 - Medications Medications: Current Medications Ascorbic Acid (Vitamin C 500 Mg Tab) 500 mg PO DAILY [facility] Last Admin: 08/29/17 09:47 Dose: 500 mg Clopidogrel Bisulfate (Plavix) 75 mg PO DAILY [facility] Last Admin: 08/29/17 09:46 Dose: 75 mg Famotidine (Pepcid) 20 mg PO DAILY [facility] Last Admin: 08/29/17 09:47 Dose: 20 mg Finasteride (Proscar) 5 mg PO DAILY [facility] Last Admin: 08/29/17 09:47 Dose: 5 mg Heparin Sodium (Porcine) (Heparin) 5,000 units SC Q12 [facility] Last Admin: 08/29/17 09:47 Dose: 5,000 units Levothyroxine Sodium (Synthroid) 25 mcg PO DAILY@0630 [facility] Last Admin: 08/29/17 06:11 Dose: 25 mcg Megestrol Acetate (Megace) 400 mg PO DAILY [facility] Last Admin: 08/29/17 09:49 Dose: 400 mg Metoprolol Tartrate (Lopressor) 12.5 mg PO BID [facility] Last Admin: 08/29/17 09:48 Dose: Not Given Midodrine (Proamatine) 5 mg PO TID [facility] Last Admin: 08/29/17 12:59 Dose: 5 mg Multivitamins (Hexavitamin) 1 tab PO DAILY [facility] Last Admin: 08/29/17 09:47 Dose: 1 tab Paricalcitol (Zemplar) 2 mcg IV TTS [facility] Last Admin: 08/29/17 09:47 Dose: 2 mcg Tamsulosin HCl (Flomax) 0.4 mg PO DAILY [facility] Last Admin: 08/29/17 09:47 Dose: 0.4 mg - Labs Labs: 12/05/17 06:37 08/27/17 06:37 PT 17.1 SECONDS (9.7-12.2) H 08/21/17 17:29 INR 1.5 08/21/17 17:29 APTT 34 SECONDS (21-34) 08/21/17 17:29 - Constitutional Appears: No Acute Distress, Chronically Ill - Head Exam Head Exam: NORMOCEPHALIC - Neck Exam Neck Exam: Normal Inspection - Respiratory Exam Respiratory Exam: Decreased Breath Sounds - Cardiovascular Exam Cardiovascular Exam: Tachycardia, REGULAR RHYTHM - GI/Abdominal Exam GI & Abdominal Exam: Soft - Extremities Exam Extremities Exam: absent: Pedal Edema - Neurological Exam Neurological Exam: Alert, Oriented x3 Assessment and Plan - Assessment and Plan (Free Text) Assessment: chf.severe lv ystolic dysfunction.on lopressor.bp systolic in 90s.
[2017-08-29 14:45] VITALS: O2SAT 94
--- NOTE | 2017-08-29 15:04 | RAD ---
HISTORY: f/u COMPARISON: 08/25/2017 FINDINGS: LUNGS: Interval increased opacities at both lung bases left greater than right consistent with bilateral increasing pleural effusions likely compressive atelectasis left lung base most notable Increased pulmonary venous congestion Prior endotracheal tube removed PLEURA: Increase in bilateral pleural effusions. No pneumothorax CARDIOVASCULAR: CardiomegalyIncreased pulmonary venous congestion. Midline sternotomy/CABG OSSEOUS STRUCTURES: No significant abnormalities. VISUALIZED UPPER ABDOMEN: Normal. OTHER FINDINGS: right-sided dialysis catheter terminates in the right atrium. IMPRESSION: Interval increased bilateral pleural effusions -left greater than right. Inferred compressive atelectasis left lung base Interval increased pulmonary venous congestion with cardiomegaly
--- NOTE | 2017-08-29 15:33 | PCM.HF ---
Heart Failure Core Measure - Heart Failure Ejection Fraction: Less Than 40 % ANKIT Inhibitor Prescribed: No Contraindication/Reason for not providing: esrd Beta-Alireza Prescribed: Metoprolol Succinate Angiotensin II Receptor Alireza Prescribed: No Contraindication/Reason for not providing: ESRD AnticoagulationTherapy for Atrial Fibrillation/Atrialflutter: No Contraindication/Reason for not providing: no hx of afib Aldosterone Antagonist Prescribed: No Contraindication/Reason for not providing: ESRD Hydralazine Nitrate Prescribed: No Contraindication/Reason for not providing: discontinued secondary to low bp Implantable Cardioverter Defibrillator Therapy: No Contraindication/Reason for not providing: medical therapy as per Cardiology secondary to co morbidities Cardiac Resynchronization Therapy Prescribed: No Contraindication/Reason for not providing: NSR , medical tehrapy as per Skills Trainer - Follow up Will be discharged to: Nursing Home Facility Follow Up Date (must be within 7 days from discharge): 08/31/17 Follow Up Time: 09:00
--- NOTE | 2017-08-29 15:35 | CP.PCM.PN ---
Subjective - Date & Time of Evaluation Date of Evaluation: 08/29/17 Time of Evaluation: 11:20 - Subjective Subjective: Patient seen and examined today , awake, alert, NAD , more responsive , a febrile HD today Objective - Vital Signs/Intake and Output Vital Signs (last 24 hours): Temp Pulse Resp BP Pulse Ox 96 F L 114 H 21 113/62 94 L 08/29/17 12:20 08/29/17 14:37 08/29/17 14:37 08/29/17 14:37 08/29/17 14:34 Intake and Output: 08/29/17 08/29/17 06:59 18:59 Intake Total 780 1435 Output Total 150 160 Balance 630 1275 - Medications Medications: Current Medications Ascorbic Acid (Vitamin C 500 Mg Tab) 500 mg PO DAILY [facility] Last Admin: 08/29/17 09:47 Dose: 500 mg Clopidogrel Bisulfate (Plavix) 75 mg PO DAILY [facility] Last Admin: 08/29/17 09:46 Dose: 75 mg Famotidine (Pepcid) 20 mg PO DAILY [facility] Last Admin: 08/29/17 09:47 Dose: 20 mg Finasteride (Proscar) 5 mg PO DAILY [facility] Last Admin: 08/29/17 09:47 Dose: 5 mg Heparin Sodium (Porcine) (Heparin) 5,000 units SC Q12 [facility] Last Admin: 08/29/17 09:47 Dose: 5,000 units Levothyroxine Sodium (Synthroid) 25 mcg PO DAILY@0630 [facility] Last Admin: 08/29/17 06:11 Dose: 25 mcg Megestrol Acetate (Megace) 400 mg PO DAILY [facility] Last Admin: 08/29/17 09:49 Dose: 400 mg Metoprolol Tartrate (Lopressor) 12.5 mg PO BID [facility] Last Admin: 08/29/17 09:48 Dose: Not Given Midodrine (Proamatine) 5 mg PO TID [facility] Last Admin: 08/29/17 12:59 Dose: 5 mg Multivitamins (Hexavitamin) 1 tab PO DAILY [facility] Last Admin: 08/29/17 09:47 Dose: 1 tab Paricalcitol (Zemplar) 2 mcg IV TTS [facility] Last Admin: 08/29/17 09:47 Dose: 2 mcg Tamsulosin HCl (Flomax) 0.4 mg PO DAILY [facility] Last Admin: 08/29/17 09:47 Dose: 0.4 mg - Labs Labs: 08/27/17 06:37 08/27/17 06:37 PT 17.1 SECONDS (9.7-12.2) H 08/21/17 17:29 INR 1.5 08/21/17 17:29 APTT 34 SECONDS (21-34) 08/21/17 17:29 - Constitutional Appears: No Acute Distress, Cachectic, Chronically Ill - Respiratory Exam Respiratory Exam: Decreased Breath Sounds, Rales, NORMAL BREATHING PATTERN - Cardiovascular Exam Cardiovascular Exam: REGULAR RHYTHM, +S1, +S2 - GI/Abdominal Exam GI & Abdominal Exam: Soft (peg tube present ) - Neurological Exam Neurological Exam: Alert, Awake Assessment and Plan - Assessment and Plan (Free Text) Assessment: A/P 82 yr old mal e admitted from [facility] with sepsis/ resp. failure/ renal failure s/p thoracentesis s/p intubation an d extubation started on HD and patient has a slot in [facility] blood culture- negative urine culture- negative pleural fluid- negative D/W Dr. Coyle, stable for discharge to [facility] today and Dr. Coyle will follow the patient at [facility]
[2017-08-29 15:39] VITALS: TEMP 97.1
--- NOTE | 2017-08-29 18:04 | PN ---
DATE: LOCATION: ICU, 9. SUBJECTIVE: This is an 82-year-old male seen and examined in rounds without significant clinical changes, tolerating PEG feeding well. The entire chart is reviewed including, but not limited to the most recent lab and radiology study results, current and the previous medication list, current and the previous medical events. Case discussed with the staff at length. Today's lab showed blood glucose level of 126. Rest of the lab results still pending. PHYSICAL EXAMINATION: GENERAL: An 82-year-old male. VITAL SIGNS: Afebrile with heart rate of 98 and blood pressure of 100/56. HEENT: Showed pale dry oral mucous membrane, nonicteric sclerae. LUNGS: Few scattered crepitation. Decreased air entry at bases. HEART: Positive S1 and S2. ABDOMEN: Soft. Bowel sounds are present, but hypoactive. PEG tube is in place without residual bleeding or resistance. EXTREMITIES: With lower extremities edematous changes. No clubbing or cyanosis. NEUROLOGIC: No reported new neurological deficits, sensory or motor. IMPRESSION: 1. Malnutrition with failure to thrive. 2. Hypoalbuminemia. 3. Status post percutaneous endoscopic gastrostomy insertion. 4. Pneumonia with pleural effusion. 5. Anemia, no evidence of active bleeding most likely secondary to coronary disease. 6. Recurrent episode of respiratory insufficiency. 7. Chronic renal failure on hemodialysis. SUGGESTION: 1. Continue current management. 2. Adjust PEG tube feeding. 3. Repeat stool for occult blood. Katia Pardo MD
--- NOTE | 2017-08-29 18:28 | CP.PCM.PN ---
Subjective - Date & Time of Evaluation Date of Evaluation: 08/29/17 Time of Evaluation: 09:00 - Subjective Subjective: awake alert afebrile Objective - Vital Signs/Intake and Output Vital Signs (last 24 hours): Temp Pulse Resp BP Pulse Ox 97.1 F L 103 H 26 H 98/53 L 94 L 08/29/17 15:39 08/29/17 18:00 08/29/17 18:00 08/29/17 16:34 08/29/17 14:34 Intake and Output: 08/29/17 08/29/17 06:59 18:59 Intake Total 780 1990 Output Total 150 210 Balance 630 1780 - Medications Medications: Current Medications Ascorbic Acid (Vitamin C 500 Mg Tab) 500 mg PO DAILY [facility] Last Admin: 08/29/17 09:47 Dose: 500 mg Clopidogrel Bisulfate (Plavix) 75 mg PO DAILY [facility] Last Admin: 08/29/17 09:46 Dose: 75 mg Famotidine (Pepcid) 20 mg PO DAILY [facility] Last Admin: 08/29/17 09:47 Dose: 20 mg Finasteride (Proscar) 5 mg PO DAILY [facility] Last Admin: 08/29/17 09:47 Dose: 5 mg Heparin Sodium (Porcine) (Heparin) 5,000 units SC Q12 [facility] Last Admin: 08/29/17 09:47 Dose: 5,000 units Levothyroxine Sodium (Synthroid) 25 mcg PO DAILY@0630 [facility] Last Admin: 08/29/17 06:11 Dose: 25 mcg Megestrol Acetate (Megace) 400 mg PO DAILY [facility] Last Admin: 08/29/17 09:49 Dose: 400 mg Metoprolol Tartrate (Lopressor) 12.5 mg PO BID [facility] Last Admin: 08/29/17 17:36 Dose: 12.5 mg Midodrine (Proamatine) 5 mg PO TID [facility] Last Admin: 08/29/17 17:36 Dose: 5 mg Multivitamins (Hexavitamin) 1 tab PO DAILY [facility] Last Admin: 08/29/17 09:47 Dose: 1 tab Paricalcitol (Zemplar) 2 mcg IV TTS [facility] Last Admin: 08/29/17 09:47 Dose: 2 mcg Tamsulosin HCl (Flomax) 0.4 mg PO DAILY [facility] Last Admin: 08/29/17 09:47 Dose: 0.4 mg - Labs Labs: 12/05/17 06:37 08/27/17 06:37 PT 17.1 SECONDS (9.7-12.2) H 08/21/17 17:29 INR 1.5 08/21/17 17:29 APTT 34 SECONDS (21-34) 08/21/17 17:29 - Constitutional Appears: Non-toxic, Chronically Ill - Head Exam Head Exam: NORMOCEPHALIC - Eye Exam Eye Exam: PERRL - ENT Exam ENT Exam: Mucous Membranes Dry - Neck Exam Neck Exam: absent: Lymphadenopathy - Respiratory Exam Respiratory Exam: Decreased Breath Sounds, Rales - Cardiovascular Exam Cardiovascular Exam: REGULAR RHYTHM - GI/Abdominal Exam GI & Abdominal Exam: Distended Assessment and Plan (1) Fever Status: Acute (2) Leukocytosis Status: Acute (3) UTI (urinary tract infection) Status: Acute (4) Acute renal failure Status: Acute (5) Generalized weakness Status: Acute (6) Hyperkalemia Status: Acute (7) Troponin level elevated Status: Acute (8) UTI (urinary tract infection) due to Enterococcus Status: Acute (9) UTI (urinary tract infection) due to Enterococcus Status: Acute (10) UTI due to Klebsiella species Status: Acute (11) UTI due to Klebsiella species Status: Acute
[2017-08-29 19:04] VITALS: BP 91/46; PULSE 102; RESP 23
--- NOTE | 2017-08-29 23:50 | CP.PCM.DIS ---
Provider - Provider Date of Admission: 07/24/17 12:35 Attending physician: Daniel Coyle MD Diagnosis - Discharge Diagnosis (1) Fever Status: Acute (2) Leukocytosis Status: Acute (3) UTI (urinary tract infection) Status: Acute (4) Leg ulcer Status: Acute (5) Toxic metabolic encephalopathy Status: Acute (6) Pleural effusion Status: Acute (7) Respiratory failure Status: Resolved (8) Renal failure Status: Acute Hospital Course - Lab Results Lab Results: Micro Results 08/16/17 10:01 Other: Please Indicate Mycobacterial Culture - Preliminary 08/21/17 14:29 Naris MRSA Culture (Admit) - Final MRSA NOT DETECTED 08/16/17 15:15 Pleural Fluid Gram Stain - Final 08/16/17 15:15 Pleural Fluid Body Fluid Culture - Final No growth. 08/15/17 13:36 Other: Please Indicate Gram Stain - Final 08/15/17 13:36 Other: Please Indicate Body Fluid Culture - Final No growth. 08/08/17 08:00 Urine,Clean Catch Urine Culture - Final No Growth (<1,000 CFU/ML) 07/30/17 09:54 Blood-Venous Blood Culture - Final NO GROWTH AFTER 5 DAYS 07/30/17 09:54 Blood-Venous Gram Stain - Final TEST NOT PERFORMED 07/30/17 09:54 Blood-Venous Blood Culture - Final NO GROWTH AFTER 5 DAYS 07/30/17 09:54 Blood-Venous Gram Stain - Final TEST NOT PERFORMED 07/26/17 11:45 Blood Blood Culture - Final NO GROWTH AFTER 5 DAYS 07/26/17 11:45 Blood Gram Stain - Final TEST NOT PERFORMED 07/26/17 11:00 Blood Blood Culture - Final NO GROWTH AFTER 5 DAYS 07/26/17 11:00 Blood Gram Stain - Final TEST NOT PERFORMED 07/29/17 16:51 Urine,Corley Urine Culture - Final No Growth (<1,000 CFU/ML) 07/30/17 08:48 Naris MRSA Culture (Admit) - Final MRSA NOT DETECTED 07/24/17 11:10 Blood Blood Culture - Final NO GROWTH AFTER 5 DAYS 07/24/17 11:10 Blood Gram Stain - Final TEST NOT PERFORMED 07/24/17 11:40 Blood Blood Culture - Final NO GROWTH AFTER 5 DAYS 07/24/17 11:40 Blood Gram Stain - Final TEST NOT PERFORMED 07/26/17 07:50 Stool Ova and Parasite Concentrate Exam - Final 07/24/17 16:00 Urine,Catheterized Urine Culture - Final Klebsiella Pneumoniae Ssp Pneu Enterococcus Faecalis Most Recent Lab Values WBC 10.1 K/uL (4.8-10.8) 08/27/17 06:37 RBC 3.39 Mil/uL (4.40-5.90) L 08/27/17 06:37 Hgb 9.6 g/dL (12.0-18.0) L 08/27/17 06:37 Hct 30.6 % (35.0-51.0) L 08/27/17 06:37 MCV 90.1 fL (80.0-94.0) 08/27/17 06:37 MCH 28.2 pg (27.0-31.0) 08/27/17 06:37 MCHC 31.3 g/dL (33.0-37.0) L 08/27/17 06:37 RDW 21.6 % (11.5-14.5) H 08/27/17 06:37 Plt Count 180 K/uL (130-400) 08/27/17 06:37 MPV 9.8 fL (7.2-11.7) 08/27/17 06:37 Neut % (Auto) 74.4 % (50.0-75.0) 08/27/17 06:37 Lymph % (Auto) 14.0 % (20.0-40.0) L 08/27/17 06:37 [place] % (Auto) 8.0 % (0.0-10.0) 08/27/17 06:37 Eos % (Auto) 3.0 % (0.0-4.0) 08/27/17 06:37 Baso % (Auto) 0.6 % (0.0-2.0) 08/27/17 06:37 Neut # 7.5 K/uL (1.8-7.0) H 08/27/17 06:37 Lymph # 1.4 K/uL (1.0-4.3) 08/27/17 06:37 [place] # 0.8 K/uL (0.0-0.8) 08/27/17 06:37 Eos # 0.3 K/uL (0.0-0.7) 08/27/17 06:37 Baso # 0.1 K/uL (0.0-0.2) 08/27/17 06:37 Neutrophils % (Manual) 86 % (50-75) H 08/07/17 06:10 Band Neutrophils % 1 % (0-2) 08/06/17 06:40 Lymphocytes % (Manual) 9 % (20-40) L 08/07/17 06:10 Monocytes % (Manual) 4 % (0-10) 08/07/17 06:10 Eosinophils % (Manual) 1 % (0-4) 08/07/17 06:10 Nucleated RBC % 1 % (0-0) H 07/31/17 06:22 Platelet Estimate Normal (NORMAL) 08/07/17 06:10 Polychromasia Slight 08/06/17 06:40 Hypochromasia (manual) Slight 08/07/17 06:10 Poikilocytosis (manual Slight 08/07/17 06:10 Anisocytosis (manual) Slight 08/07/17 06:10 Microcytosis (manual) Slight 07/31/17 06:22 Target Cells Slight 08/06/17 06:40 Tear Drop Cells Slight 08/06/17 06:40 Ovalocytes Slight 08/07/17 06:10 Rosalie Cells Slight 08/06/17 06:40 PT 17.1 SECONDS (9.7-12.2) H 08/21/17 17:29 INR 1.5 08/21/17 17:29 APTT 34 SECONDS (21-34) 08/21/17 17:29 Puncture Site Rr 08/25/17 04:25 pCO2 39 mm/Hg (35-45) 08/25/17 04:25 pO2 106 mm/Hg (80-100) H 08/25/17 04:25 HCO3 28.4 mmol/L (21-28) H 08/25/17 04:25 ABG pH 7.47 (7.35-7.45) H 08/25/17 04:25 ABG Total CO2 29.6 mmol/L (22-28) H 08/25/17 04:25 ABG O2 Saturation 98.3 % (95-98) H 08/25/17 04:25 ABG Base Excess 4.5 mmol/L (-2.0-3.0) H 08/25/17 04:25 ABG Hemoglobin 14.4 g/dL (11.7-17.4) 08/25/17 04:25 ABG Carboxyhemoglobin 1.8 % (0.5-1.5) H 08/25/17 04:25 POC ABG HHb (Measured) 1.7 % (0.0-5.0) 08/25/17 04:25 ABG Methemoglobin 0.7 % (0.0-3.0) 08/25/17 04:25 Elder Test Pos 08/25/17 04:25 ABG Potassium 4.1 mmol/L (3.6-5.2) 08/01/17 05:11 VBG pH 7.39 (7.32-7.43) 07/30/17 12:03 VBG pCO2 23 mmHg (40-60) L 07/30/17 12:03 VBG HCO3 16.5 mmol/L 07/30/17 12:03 VBG Total CO2 14.6 mmol/L (22-28) L 07/30/17 12:03 VBG O2 Sat (Calc) 46.1 % (40-65) 07/30/17 12:03 VBG Base Excess -9.0 mmol/L (0.0-2.0) L 07/30/17 12:03 VBG Potassium 5.4 mmol/L (3.6-5.2) H 07/30/17 12:03 A-a O2 Difference 130.0 mm/Hg 08/25/17 04:25 Respiratory Index 1.2 08/25/17 04:25 Hgb O2 Saturation 95.7 % (95.0-98.0) 08/25/17 04:25 Sodium 140.0 mmol/l (132-148) 08/01/17 05:11 Chloride 108.0 mmol/L (98-107) H 08/01/17 05:11 Glucose 84 mg/dl (75-110) 08/01/17 05:11 Lactate 1.4 mmol/L (0.7-2.1) 08/01/17 05:11 Liter Flow 3.0 08/16/17 11:45 Vent Mode Cpap 08/25/17 04:25 Mechanical Rate 14 08/24/17 05:20 FiO2 40.0 % 08/25/17 04:25 Tidal Volume 500 08/24/17 05:20 PEEP 5 08/24/17 05:20 Pressure Support 10 08/25/17 04:25 CPAP 5 08/25/17 04:25 Crit Value Called To 07/30/17 12:03 Crit Value Called By Neymar hernadez,marine engineering consultant 07/30/17 12:03 Crit Value Read Back Y 07/30/17 12:03 Blood Gas Notified Time 1210 07/30/17 12:03 Sodium 137 mmol/L (132-148) 08/27/17 06:37 Potassium 3.9 mmol/L (3.6-5.2) 08/27/17 06:37 Chloride 99 mmol/L (98-107) 08/27/17 06:37 Carbon Dioxide 31 mmol/L (22-30) H 08/27/17 06:37 Anion Gap 10 (10-20) 08/27/17 06:37 BUN 75 mg/dL (9-20) H 08/27/17 06:37 Creatinine 3.5 mg/dL (0.8-1.5) H 08/27/17 06:37 Est GFR ( Amer) 20 08/27/17 06:37 Est GFR (Non-Af Amer) 17 08/27/17 06:37 POC Glucose (mg/dL) 158 mg/dL (65-110) H 08/29/17 17:52 Random Glucose 103 mg/dL (75-110) 08/27/17 06:37 Hemoglobin A1c 5.0 % (4.2-6.5) 08/23/17 13:08 Lactic Acid 1.3 mmol/L (0.7-2.1) 08/03/17 11:34 Calcium 8.6 mg/dl (8.6-10.4) 08/27/17 06:37 Phosphorus 2.6 mg/dL (2.5-4.5) 08/27/17 06:37 Magnesium 2.7 mg/dL (1.6-2.3) H 08/27/17 06:37 Iron 19 ug/dL (49-181) L 07/24/17 21:38 TIBC 207 ug/dL (250-450) L 07/24/17 21:38 % Saturation 9 (20-55) L 07/24/17 21:38 Total Bilirubin 0.5 mg/dL (0.2-1.3) 08/27/17 06:37 AST 41 U/L (17-59) 08/27/17 06:37 ALT 29 U/L (21-72) 08/27/17 06:37 Alkaline Phosphatase 148 U/L (38-126) H D 08/27/17 06:37 Total Creatine Kinase 451 U/L (55-170) H 07/28/17 07:50 CK-MB (Mass) 1.62 ng/mL (0.0-3.38) 07/24/17 11:15 Troponin I 0.1350 ng/mL (0.00-0.120) H* 07/25/17 06:59 Total Protein 5.2 g/dL (6.3-8.3) L 08/27/17 06:37 Albumin 2.4 g/dL (3.5-5.0) L 08/27/17 06:37 Globulin 2.8 gm/dL (2.2-3.9) 08/27/17 06:37 Albumin/Globulin Ratio 0.9 (1.0-2.1) L 08/27/17 06:37 Lipase 45 U/L (23-300) 07/24/17 11:15 Arterial Blood Potassium 4.1 mmol/L (3.6-5.2) 08/01/17 05:11 Venous Blood Potassium 5.4 mmol/L (3.6-5.2) H 07/30/17 12:03 Urine Color Rosemarie (YELLOW) 08/08/17 12:18 Urine Clarity Hazy (Clear) 08/08/17 12:18 Urine pH 5.0 (5.0-8.0) 08/08/17 12:18 Ur Specific [place] 1.017 (1.003-1.030) 08/08/17 12:18 Urine Protein 1+ mg/dL (NEGATIVE) H 08/08/17 12:18 Urine Glucose (UA) Normal mg/dL (Normal) 08/08/17 12:18 Urine Ketones Negative mg/dL (NEGATIVE) 08/08/17 12:18 Urine Blood 1+ (NEGATIVE) H 08/08/17 12:18 Urine Nitrate Negative (NEGATIVE) 08/08/17 12:18 Urine Bilirubin Negative (NEGATIVE) 08/08/17 12:18 Urine Urobilinogen Normal mg/dL (0.2-1.0) 08/08/17 12:18 Ur Leukocyte Esterase 1+ Melia/uL (Negative) H 08/08/17 12:18 Urine WBC (Auto) 12 /hpf (0-5) H 08/08/17 12:18 Urine RBC (Auto) 3 /hpf (0-3) 08/08/17 12:18 Ur Squamous Epith Cells 3 /hpf (0-5) 08/08/17 12:18 Urine Bacteria Few (<OCC) H 07/29/17 16:41 Granular Casts (Auto) 17 /lpf (0-1) 07/29/17 04:05 Urine Eosinophils Negative (NEGATIVE) 07/29/17 16:41 Urine Osmolality 376 mosm/kg (300-1000) 07/24/17 21:28 Ur Random Sodium 60 mmol/L 07/24/17 21:28 Ur Random Potassium 37.1 mmol/L 07/24/17 21:28 Ur Random Phosphorus 45.1 mg/dL 07/29/17 11:51 Urine Collection Time 24 HRS 07/29/17 11:46 Urine Total Volume 125 mL 07/29/17 11:46 Ur Creatinine 24 Hour 192.6 mg/24hr (800-2800) L 07/29/17 11:46 Creatinine Clearance 2.0 mL/min (107-139) L 07/29/17 11:46 Urine Chloride 66 mmol/L (32-290) 07/24/17 21:28 Ur Protein 24 Hr Calc 47.5 mg/24hr (42-225) 07/29/17 11:46 Fluid Source Pleural 08/16/17 15:06 Fluid Appearance Clear (CLEAR) 08/16/17 15:06 Fluid WBC 18.0 /mm3 (0.0-300.0) 08/16/17 15:06 Fluid RBC 120.0 /mm3 (0.0-0.0) H 08/16/17 15:06 Fluid Tot Cell Count 100 (0-0) H 08/16/17 15:06 Fluid Neutrophils 21.0 % (0-0) H 08/16/17 15:06 Fluid Lymphocytes 73.0 % (0-0) H 08/16/17 15:06 Fld Monocyte/Macrophag 6 % (0-0) H 08/16/17 15:06 Fluid Comment 08/16/17 15:06 Pleural LDH 52 U/L 08/16/17 03:12 Pleural Amylase 13 U/L 08/16/17 03:12 Stool Leukocytes, Qual Negative (NEGATIVE) 07/24/17 08:00 Vancomycin Trough 5.1 ug/mL (5.0-10.0) 07/26/17 15:00 C. difficile Ag & Toxin Negative (NEGATIVE) 07/24/17 08:00 Hepatitis A IgM Ab Negative (NEGATIVE) 08/01/17 12:32 Hep Bs Antigen Negative (NEGATIVE) 08/01/17 12:32 Hep Bs Antibody Negative (NEGATIVE) 07/31/17 06:22 Hep B Core IgM Ab Negative (NEGATIVE) 08/01/17 12:32 Hepatitis C Antibody Negative (NEGATIVE) 08/01/17 12:32 Influenza Typ A,B (EIA) Negative for flu a/b (NEGATIVE) 07/24/17 11:54 Blood Type O POSITIVE 07/31/17 12:18 Antibody Screen Negative 07/31/17 12:18 - Hospital Course Hospital Course: A/P 82 yr old mal e admitted from [facility] with sepsis/ resp. failure/ renal failure s/p thoracentesis s/p intubation an d extubation started on HD and patient has a slot in [facility] blood culture- negative urine culture- negative pleural fluid- negative D/W Dr. Coyle, stable for discharge to [facility] today and Dr. Coyle will follow the patient at [facility] Discharge Exam - Head Exam Head Exam: NORMOCEPHALIC Discharge Plan - Follow Up Plan Condition: FAIR Disposition: REHAB FACILITY/REHAB UNIT Instructions: Acute Respiratory Distress Syndrome (DC), Urinary Tract Infection in Men (DC), Hemodialysis (DC) Additional Instructions: PLEASE CALL DR. COYLE UPON PATIENT ARRIVAL TO THE FACILITY CONTINUE HD SCHEDULED AT [facility] PLEASE DO CBC, BMP , Q WEEKLY ON SATURDAY CONTINUE MEDICATION PER MED. REC.
--- NOTE | 2017-08-30 00:04 | PN ---
DATE: FOLLOWUP RENAL CONSULTATION LOCATION: Patient is located in ICU, room 9. REQUESTING PHYSICIAN: Daniel Coyle MD REASON FOR FOLLOWUP: End-stage renal disease, continuation of hemodialysis. SUBJECTIVE: Mr. Cunningham is an 82 years old elderly male with a past medical history significant for long-standing hypertension, coronary artery disease status post CABG, tophaceous gout, renal failure, anemia, recurrent falls. Was recently admitted in a [facility], from there patient was sent back on 07/24/2017 with altered mental status, shortness of breath, and worsening renal function and UTI and status post code sepsis, and subsequently transferred to ICU requiring initiation of the pressors and worsening renal function requiring initiation of the hemodialysis three times a week. Once the patient was stabilized, patient was transferred to medical floor. After 1 week, patient was transferred back to ICU for respiratory failure and requiring intubation status post extubation. Patient underwent hemodialysis this morning and had ultrafiltration of about 1.5 liters. Patient is feeling slightly better, not in any distress, no chest pain, no palpitation, no fever, no cough. Blood pressure is on the low side post dialysis. PHYSICAL EXAMINATION: VITAL SIGNS: Blood pressure 92/53, pulse 105, respiration 19, saturation 95%, and temperature is 96. GENERAL: Mr. Cunningham is 82 years elderly male, moderately built, moderately nourished, not in distress. HEENT: Pupils are normal and reactive to light and accommodation. Conjunctivae pink. Sclerae anicteric. Tongue is moist. Trachea is midline. LUNGS: Symmetric on both sides. Bilateral breath sounds present. Occasional basal crackles present. CARDIOVASCULAR SYSTEM: [place] at the fifth intercostal space, midclavicular line. S1, S2 audible, occasionally irregularly irregular. ABDOMEN: Normal in appearance, soft, tympanic. No guarding. No rigidity. Bowel sounds present. No hepatosplenomegaly. The patient has a PEG tube. CENTRAL NERVOUS SYSTEM: Patient is alert, awake, oriented x2, following commands, simple. EXTREMITIES: No cyanosis, no clubbing. 1+ edema in both upper and lower extremities. Patient has a superficial ulcer on the right upper extremity which is healing. CURRENT MEDICATIONS: Include as follows, Flomax 0.4 mg p.o. daily, heparin subcu 5000 units q. 12 hours, multivitamin one tablet daily, metoprolol 12.5 mg p.o. b.i.d., Megace 400 mg p.o. daily, Pepcid 20 mg p.o. daily, Plavix 75 mg p.o. daily, Proscar 5 mg p.o. daily, Synthroid 25 mcg p.o. daily, vitamin C 500 mg p.o. daily, Zemplar 2 mcg three times a week. LABORATORY DATA: No new labs are available. Accu-Cheks 143 and 126. ASSESSMENT AND PLAN: In summary, Mr. Cunningham is an 82 years old elderly male with hypertension, coronary artery disease status post coronary artery bypass graft, tophaceous gout, renal failure with a poor left ventricular function, congestive heart failure, and pneumonia. 1. Renal failure, most likely end-stage renal disease. Continue hemodialysis three times a week, Saturday, , Saturday. 2. Cardiomyopathy. 3. Congestive heart failure. 4. Anemia secondary to renal failure. PLAN: Continue his current medications, metoprolol and midodrine as per cardiology's recommendations. Continue Synthroid for hypothyroidism. Patient underwent hemodialysis today, had ultrafiltration of about 1.5 liters. Overall, prognosis is guarded. Thank you for allowing me to participate in your patient's care. Discussed with Dr. Jeffery Thrasher in rounds. Hernan Peterson MD
== END 2017-08-29 19:57 | DRG 698 ==
LOC: C.ER 10:45 → C.9E 12:35 → C.6T 16:05 → C.9I 07-30 08:41 → C.3T 08-07 06:37 → C.9I 08-21 14:03
PROVIDERS: ADMIT Internal Medicine; ATTEND Internal Medicine
PROC: 5A1D70Z Performance of Urinary Filtration, Intermittent, Less than 6 Hours Per Day (ICD-10-PCS; 2017-07-24)
PROC: 02HV33Z Insertion of Infusion Device into Superior Vena Cava, Percutaneous Approach (ICD-10-PCS; principal; 2017-08-01 12:30)
PROC: 0W993ZX Drainage of Right Pleural Cavity, Percutaneous Approach, Diagnostic (ICD-10-PCS; 2017-08-16)
PROC: 0DH63UZ Insertion of Feeding Device into Stomach, Percutaneous Approach (ICD-10-PCS; 2017-08-16)
PROC: 3E0G76Z Introduction of Nutritional Substance into Upper GI, Via Natural or Artificial Opening (ICD-10-PCS; 2017-08-16)
PROC: 5A09457 Assistance with Respiratory Ventilation, 24-96 Consecutive Hours, Continuous Positive Airway Pressure (ICD-10-PCS; 2017-08-17)
PROC: 5A1945Z Respiratory Ventilation, 24-96 Consecutive Hours (ICD-10-PCS; 2017-08-21)
PROC: 0BH17EZ Insertion of Endotracheal Airway into Trachea, Via Natural or Artificial Opening (ICD-10-PCS; 2017-08-21)
PROC: 05HM33Z Insertion of Infusion Device into Right Internal Jugular Vein, Percutaneous Approach (ICD-10-PCS; 2017-08-21)
DX: T83.511A Infection and inflammatory reaction due to indwelling urethral catheter, initial encounter (principal); A41.9 Sepsis, unspecified organism; N17.0 Acute kidney failure with tubular necrosis; K72.00 Acute and subacute hepatic failure without coma; J96.91 Respiratory failure, unspecified with hypoxia; R65.20 Severe sepsis without septic shock; G93.41 Metabolic encephalopathy; N18.6 End stage renal disease; J18.9 Pneumonia, unspecified organism; E46 Unspecified protein-calorie malnutrition; I13.2 Hypertensive heart and chronic kidney disease with heart failure and with stage 5 chronic kidney disease, or end stage renal disease; M62.82 Rhabdomyolysis; I13.0 Hypertensive heart and chronic kidney disease with heart failure and stage 1 through stage 4 chronic kidney disease, or unspecified chronic kidney disease; L97.929 Non-pressure chronic ulcer of unspecified part of left lower leg with unspecified severity; L97.919 Non-pressure chronic ulcer of unspecified part of right lower leg with unspecified severity; J90 Pleural effusion, not elsewhere classified; N39.0 Urinary tract infection, site not specified; E11.22 Type 2 diabetes mellitus with diabetic chronic kidney disease; E87.5 Hyperkalemia; E11.622 Type 2 diabetes mellitus with other skin ulcer; I50.9 Heart failure, unspecified; N13.9 Obstructive and reflux uropathy, unspecified; F03.90 Unspecified dementia, unspecified severity, without behavioral disturbance, psychotic disturbance, mood disturbance, and anxiety; Z87.891 Personal history of nicotine dependence; R62.7 Adult failure to thrive; Z99.2 Dependence on renal dialysis; M1A.9XX1 Chronic gout, unspecified, with tophus (tophi); I25.10 Atherosclerotic heart disease of native coronary artery without angina pectoris; Z95.1 Presence of aortocoronary bypass graft; D50.9 Iron deficiency anemia, unspecified; E86.0 Dehydration; Y84.6 Urinary catheterization as the cause of abnormal reaction of the patient, or of later complication, without mention of misadventure at the time of the procedure; E03.9 Hypothyroidism, unspecified; N40.1 Benign prostatic hyperplasia with lower urinary tract symptoms; R33.8 Other retention of urine

== ENCOUNTER 2017-08-30 13:51 | Emergency (ER) | payer MEDICARE ==
--- NOTE | 2017-08-30 14:06 | C.PDOC ---
History Of Present Illness 82 y/o male sent from [facility] for worsening respiratory status. On arrival, patient not breathing, fixed and dilated, asystolic. Recent admission for sepsis, UTI, respiratory arrest. Dialysis patient. Time Seen by Provider: 08/30/17 14:03 Chief Complaint (Nursing): Cardiac Arrest History Per: EMS, Family Reason For Code Blue: Full Arrest Past Medical History Reviewed: Historical Data, Nursing Documentation, Vital Signs Vital Signs: Last Vital Signs Temp 98 F 08/30/17 14:13 Pulse 0 L 08/30/17 14:03 Resp 0 L 08/30/17 14:03 BP 0/0 L 08/30/17 14:03 Pulse Ox 0 L 08/30/17 14:03 - Medical History PMH: Arthritis (OA, Gout), Gastritis, HTN, Chronic Kidney Disease - [facility] Procedures (07/24/17) ASSISTANCE WITH RESPIRATORY VENTILATION, 24-96 HRS, CPAP (07/24/17) DRAINAGE OF RIGHT PLEURAL CAVITY, PERC APPROACH, DIAGN (07/24/17) EXTRACTION OF LEFT FOOT SKIN, EXTERNAL APPROACH (05/27/17) INSERT INFUSION DEV IN R INT JUGULAR VEIN, PERC (07/24/17) INSERTION OF ENDOTRACHEAL AIRWAY INTO TRACHEA, VIA OPENING (07/24/17) INSERTION OF FEEDING DEVICE INTO STOMACH, PERC APPROACH (07/24/17) INSERTION OF INFUSION DEV INTO SUP VENA CAVA, PERC APPROACH (07/24/17) INTRODUCTION OF NUTRITIONAL INTO UP GI, VIA OPENING (07/24/17) RESPIRATORY VENTILATION, 24-96 CONSECUTIVE HOURS (07/24/17) Family History: States: Unknown Family Hx - Social History Hx Alcohol Use: No Hx Substance Use: No - Immunization History Hx Tetanus Toxoid Vaccination: No Hx Influenza Vaccination: Yes (06/28/2017) Hx Pneumococcal Vaccination: No Review Of Systems Review Of Systems: ROS cannot be obtained secondary to pt's inabilty to answer questions. Physical Exam - Physical Exam Appears: Other (elderly and thin black man, no injuries) Skin: Dry Head: Atraumatic Eye(s): bilateral: Other (fixed and dilated) Oral Mucosa: Dry Chest: Symmetrical Cardiovascular: Other (no rhythm) Respiratory: Other (no respiratory effort) Extremity: Other (pulses absent) Medical Decision Making Medical Decision Making: Probable resp vs cardiac arrest [facility] [place] [facility]. Considering chronic illness, recent severe illness, debilitated state, clinical upon arrival ( asystolic, no resp, fixed-dilated pupils) ACLS protocols were not begun due to medical futility. Declared at 13:53. Case discussed with Dr. Coyle at 14:00. Discussed with family at 14:10. certificate completed. Disposition Doctor Will See Patient In The: Hospital - Disposition Disposition: WITH WITHOUT AUTOPSY Disposition Time: 14:30 Condition: Forms: GPal ([place]) - Clinical Impression Clinical Impression: Cardiac arrest, - Scribe Statement The provider has reviewed the documentation as recorded by the Scribe SM All medical record entries made by the Scribe were at my direction and personally dictated by me. I have reviewed the chart and agree that the record accurately reflects my personal performance of the history, physical exam, medical decision making, and the department course for this patient. I have also personally directed, reviewed, and agree with the discharge instructions and disposition.
[2017-08-30 14:09] VITALS: BP 0/0; PULSE 0; RESP 0; O2SAT 0
[2017-08-30 14:13] VITALS: TEMP 98
== END 2017-08-30 21:38 ==
LOC: C.ER 13:51
DX: I46.9 Cardiac arrest, cause unspecified (principal); I12.9 Hypertensive chronic kidney disease with stage 1 through stage 4 chronic kidney disease, or unspecified chronic kidney disease; N18.9 Chronic kidney disease, unspecified; Z87.891 Personal history of nicotine dependence